=== PATIENT | male | born 1955 | race Caucasian/White ===

== ENCOUNTER 2019-06-04 23:46 | Inpatient (IN) | payer MEDICARE, MEDICAID ==
[~2019-06-04] VITALS: Ht 182.9 cm; Wt 142.4 kg
[~2019-06-04 23:46] MED LIST: DIGO125T PO; METO25TA6 PO
--- NOTE | 2019-06-04 23:52 | NUR ---
TO BED 4 BIB PARAMEDICS C/O SYNCOPAL EPISODE MULTIPLE TIMES TODAY, NO C/O L SIDED BODY PAIN. PT HYPOTENSIVE PER EMS REPORT. PT ALSO C/O GENERALIZED WEAKNESS. PT AAOX4 NO ACUTE DISTRESS NOTED, RESP EVEN AND UNLABORED. PLACE PT ON CARDIAC MONITORING, CONTINUOUS POX. PENDING ER MD CRUZ.
--- NOTE | 2019-06-05 00:08 | NUR ---
ER MD AT BEDSIDE TO EVAL PT WITH ORDERS RECEIVED. WILL CARRY OUT ORDERS.
[2019-06-05] MEDS ORDERED: IV NS 0.9% 1,000 ML BAG IV ONE ×2 (00:30→01:00)
[2019-06-05 00:33] LABS: BASOPHILS # (AUTO) 0.1 /CMM (0.0-0.2); BASOPHILS % (AUTO) 0.3 % (0.0-2.0); EOSINOPHILS % (AUTO) 0.3 % (0.0-6.0); HEMATOCRIT 32 % (39-51); HEMOGLOBIN 10.6 g/dL (13.5-17.5); LYMPHOCYTES # (AUTO) 1.1 /CMM (0.8-4.8); LYMPHOCYTES % (AUTO) 7.3 % (20.0-44.0); MEAN CORPUSCULAR HGB CONC 33 g/dl (31.0-36.0); MEAN CORPUSCULAR VOLUME 93 fL (80-96); MONOCYTES # (AUTO) 1.4 /CMM (0.1-1.30); MONOCYTES % (AUTO) 9.4 % (2.0-12.0); NEUTROPHILS # (AUTO) 12.2 /CMM (1.8-8.9); NEUTROPHILS % (AUTO) 82.7 % (43.0-81.0); PLATELET COUNT (AUTO) 424 /CMM (150-450); RED BLOOD CELL COUNT(AUTO) 3.47 MIL/uL (4.5-6.0); WHITE BLOOD COUNT (AUTO) 14.8 K/uL (4.3-11.0)
[2019-06-05 00:42] LABS: CALCIUM, SERUM 9.2 mg/dL (8.5-10.1); CARBON DIOXIDE 24 mmol/L (21-32); CHLORIDE 93 mmol/L (98-107); GLUCOSE 126 mg/dL (74-106); SODIUM SERUM 128 mmol/L (136-145); UREA NITROGEN, BLOOD 52 mg/dL (7-18)
[2019-06-05] MEDS ORDERED: ONDANSETRON HCL/PF 4 MG/2 ML VIAL ONE (00:47)
[2019-06-05 00:49] LABS: ALANINE AMINOTRANSFERASE 65 U/L (12-78); ALBUMIN 2.9 g/dL (3.4-5.0); ALKALINE PHOSPHATASE 81 U/L (46-116); ASPARTATE AMINOTRANSFERASE 34 U/L (15-37); BILIRUBIN,DIRECT 0.1 mg/dL (0.0-0.2); BILIRUBIN,TOTAL 0.4 mg/dL (0.2-1.0); TOTAL PROTEIN, SERUM 7.8 g/dL (6.4-8.2)
[2019-06-05] MEDS ORDERED: INSULIN REGULAR, HUMAN 100 UNIT/ML 10 ML VIAL IV ONE (01:00)
[2019-06-05] MEDS ORDERED: ONDANSETRON HCL/PF - ER 4 MG/2 ML VIAL IV ONE (01:00)
[2019-06-05] MEDS ORDERED: DEXTROSE 50%-WATER 50 ML DISP.SYRIN IV ONE (01:00)
[2019-06-05] MEDS ORDERED: SODIUM POLYSTYRENE SULFONATE 15 G/60 ML BOTTLE PO ONE (01:00)
[2019-06-05] MEDS ORDERED: ALBUTEROL FS 2.5 MG/3 ML VIAL.NEB NEB ONE (01:00)
--- NOTE | 2019-06-05 01:01 | NUR ---
LACTIC ACID 2.0, DR OSEGUERA AWARE
[2019-06-05] MEDS ORDERED: INSULIN REGULAR, HUMAN 100 UNIT/ML 10 ML VIAL ONE (01:12)
[2019-06-05] MEDS ORDERED: DEXTROSE 50%-WATER 50 ML DISP.SYRIN ONE (01:12)
[2019-06-05] MEDS ORDERED: SODIUM POLYSTYRENE SULFONATE 15 G/60 ML BOTTLE ONE (01:12)
[2019-06-05] MEDS ORDERED: ALBUTEROL FS 2.5 MG/3 ML VIAL.NEB ONE (01:22)
[2019-06-05] MEDS ORDERED: ACETAMINOPHEN 325 MG TABLET PO PRN (01:30)
[2019-06-05] MEDS ORDERED: TEMAZEPAM 15 MG CAPSULE PO PRN (01:30)
[2019-06-05] MEDS ORDERED: MAG HYDROX/AL HYDROX/SIMETH 30 ML UDC PO PRN (01:30)
[2019-06-05] MEDS ORDERED: MAGNESIUM HYDROXIDE 30 ML UDC PO PRN (01:30)
[2019-06-05] MEDS ORDERED: LIDOCAINE 2% JEL UROJET 10 ML MM ONE ×2 (01:32→02:00)
--- NOTE | 2019-06-05 01:47 | NUR ---
urine sample collected and sent to lab.
[2019-06-05] MEDS ORDERED: FENTANYL PF 100MCG/2ML AMPUL ONE (01:50)
[2019-06-05] MEDS ORDERED: FENTANYL PF 100MCG/2ML AMPUL IV ONE (02:00)
--- NOTE | 2019-06-05 02:00 | NUR ---
RECEIVED REPORT FROM EDGARD RN FROM ER FOR RAJINDER.
--- NOTE | 2019-06-05 02:02 | NUR ---
report called to july vikash lopez. will transport pt via acls protocol.
[2019-06-05 02:15] LABS: APPEARANCE,URINE SL CLOUDY (CLEAR); BILIRUBIN,URINE NEGATIVE (NEGATIVE); BLOOD, URINE 1+ Ery/uL (NEGATIVE); COLOR,URINE YELLOW (YELLOW); KETONES,URINE NEGATIVE (NEGATIVE); LEUKOCYTE ESTERASE ,URINE TRACE (NEGATIVE); NITRITE, URINE NEGATIVE (NEGATIVE); PH,URINE 5.5 (5.0-8.0); PROTEIN,URINE TRACE mg/dl (NEGATIVE); UGLUCOSE NEGATIVE (NEGATIVE); UROBILINOGEN,URINE 0.2 EU/dL (0.2)
[2019-06-05 02:24] LABS: BACTERIA,URINE Moderate /HPF (None Seen); WBC,URINE 21-50 /HPF (0-3)
[2019-06-05 03:00] VITALS: BP 112/53
--- NOTE | 2019-06-05 03:00 | NUR ---
ETHNOARCHAEOLOGIST ADMITTING NOTES RECEIVED PATIENT FROM ER VIA MELCHORPRASANTH, SAMEER HYPERKALEMIA SECONDARY TO ACUTE KIDNEY INJURY, UNDER ALEXANDER ROBERTS NP. PATIENT A/OX4. ON ROOM AIR, TOLERATING WELL. NO SOB OR RESPIRATORY DISTRESS NOTED. DENIES ANY PAIN AT THE MOMENT. ON TELE MONITOR AFIB WITH HR 104. IV SITE LEFT AC 20G FLUSHING AND PATENT S/L, SITE C/D/I. SEE NURSING FLOWSHEET FOR SKIN ISSUES, BEDREST FOR NOW, UNIT ORIENTATION DONE AND USE OF CALL LIGHT. SAFETY MEASURES IN PLACE; BED LOW AND IN LOCKED POSITION, SIDE RAILS UP X2, CALL LIGHT WITHIN REACH. WILL CONT TO MONITOR PT CLOSELY. Addendum: 06/05/19 at 0343 by LUBNA LIAO RN CLARIFICATION: [facility] RN ADMITTING NOTES CHEW CATHETER IN PLACE WITH LIDIA URINE NOTED. ILEOSTOMY BAG NOTED WITH SOFT BROWN STOOL.
[2019-06-05 03:21] LABS: CALCIUM, SERUM 8.7 mg/dL (8.5-10.1); CREATININE 5.8 mg/dL (0.6-1.3); POTASSIUM 4.4 mmol/L (3.5-5.1)
--- NOTE | 2019-06-05 03:37 | NUR ---
[facility] RN NOTES PATIENT LACTIC ACID NOW 3.7. HOSPITALIST MADE AWARE. NO NEW ORDERS NOTED. WILL CONT TO MONITOR PT.
--- NOTE | 2019-06-05 03:40 | NUR ---
[facility] RN NOTES PATIENT REQUESTING SLEEPING MEDICATION. HOSPITALIST MADE AWARE. ORDERED RESTORIL 7.5MG QHS PRN PO. WILL ADMINISTER PRN MEDICATION.
[2019-06-05] MEDS: HYDROCODONE/APAP 5/325MG 1 EACH TABLET PO PRN (05:12)
--- NOTE | 2019-06-05 05:14 | NUR ---
[facility] RN NOTES PATIENT C/O ABDOMINAL ACHING PAIN 10/10 AND IS REQUESTING FOR MORPHINE. WILL ADMINISTER PRN PAIN MEDICATION.
[2019-06-05] MEDS: MORPHINE SULFATE INJ 2 MG/ML DISP.SYRIN IV PRN ×4 (05:21→21:33)
--- NOTE | 2019-06-05 07:30 | NUR ---
[facility] RN CLOSING NOTES PATIENT RESTING IN BED, A/OX4. ON OXYGEN 2L VIA NC, TOLERATING WELL. NO SOB OR RESPIRATORY DISTRESS NOTED. DENIES ANY PAIN AT THE MOMENT. ON TELE MONITOR AFIB WITH HR 90S. IV SITE LEFT AC 20G FLUSHING AND PATENT S/L, SITE C/D/I. CHEW CATHETER OFF THE FLOOR WITH LIDIA URINE NOTED. ILEOSTOMY BAG INTACT. ALL ADMITTING ORDERS DONE. SAFETY MEASURES MAINTAINED; BED LOW AND IN LOCKED POSITION, SIDE RAILS UP X2, CALL LIGHT WITHIN REACH. ENDORSED TO AM RN FOR RAJINDER.
[2019-06-05 08:00] VITALS: BP 90/54
--- NOTE | 2019-06-05 08:00 | NUR ---
july rn notes received pt in bed, awake a/ox4. on tele afib 90's. on 2l nc o2 sat wnl. no s/sx of sob/labored breathing. santoyo cath in place draining cloudy yellow urine. ileostomy 1/2 full. pt afebrile. LAC #20 intact/patent.call light within reach. pt updated with plan of care. bed in locked/lowest position. will cont to monitor.
[2019-06-05] MEDS ORDERED: PREG50CA PO (08:53)
[2019-06-05] MEDS ORDERED: ALBU18HF2 IH (08:53)
[2019-06-05] MEDS ORDERED: IBUP-1953 PO (08:53)
[2019-06-05] MEDS ORDERED: TRAM50TA2 PO (08:53)
[2019-06-05] MEDS ORDERED: ZOLP5TAB2 PO (08:53)
[2019-06-05] MEDS ORDERED: FURO20TA4 PO (08:53)
[2019-06-05] MEDS ORDERED: APIX5TAB4 PO (08:53)
[2019-06-05] MEDS: PANTOPRAZOLE 40 MG TABLET.DR PO SCH (09:37)
[2019-06-05] MEDS: ONDANSETRON HCL/PF 4 MG/2 ML VIAL IVP PRN (09:47)
--- NOTE | 2019-06-05 09:47 | NUR ---
july rn notes pt insisting on morphine for pain level 5/10.
[2019-06-05] MEDS ORDERED: ALBUTEROL FS 2.5 MG/3 ML VIAL.NEB NEB PRN (10:30)
[2019-06-05] MEDS ORDERED: IV NS 0.9% 1,000 ML IV PRN (10:30)
[2019-06-05 11:59] LABS: CREATININE, URINE 184.2 MG/DL (30.0-125.0); URINE SODIUM, RANDOM < 5 mmol/l (40-220); URINE TOTAL PROTEIN 93.7 mg/dL (0-11.9)
[2019-06-05 12:00] VITALS: BP 96/51
[2019-06-05] MEDS: AZITHROMYCIN 500 MG in IV D5W 250 ML IV SCH (12:22)
[2019-06-05] MEDS: IV NS 0.9% 1,000 ML IV PRN ×2 (12:22→23:48)
[2019-06-05] MEDS: APIXABAN 2.5 MG TABLET PO SCH ×2 (12:33→21:30)
[2019-06-05 14:15] LABS: MAGNESIUM 1.6 mg/dL (1.8-2.4); PHOSPHORUS 5.9 mg/dL (2.5-4.9)
[2019-06-05] MEDS: CEFTRIAXONE 1 G in IV D5W 50 ML IV SCH (14:17)
[2019-06-05 16:00] VITALS: BP 133/81
[2019-06-05] MEDS: Magnesium 1GM/D5W 100ML PREMIX 100 ML IV SCH ×2 (16:07→17:18)
[2019-06-05] MEDS: METOPROLOL TARTRATE 25 MG TABLET PO SCH (16:08)
[2019-06-05] MEDS: PREGABALIN 25 MG CAPSULE PO SCH (17:18)
--- NOTE | 2019-06-05 19:11 | NUR ---
july rn notes pt in bed, asleep intermittently. not c/o pain at this time. f/c in place draining 700cc urine. pt requesting for santoyo to remain as he states, "it's getting the urine out." 2G magnesium replaced as per md order. c d stripper ashley aware of phos at 5.9. on tele afib controlled. updated pt with poc. bed in locked/lowest position. call light in reach. will endorse to pm nurse for joselito.
[2019-06-05 20:22] VITALS: BP 101/52
--- NOTE | 2019-06-05 20:48 | NUR ---
[facility] RN INITIAL NOTES PATIENT RESTING IN BED, A/OX4. ON OXYGEN 2L VIA NC, TOLERATING WELL. NO SOB OR RESPIRATORY DISTRESS NOTED. DENIES ANY PAIN AT THE MOMENT. ON TELE MONITOR AFIB WITH HR 70S. IV SITE LEFT AC 20G FLUSHING AND PATENT S/L, SITE C/D/I. CHEW CATHETER OFF THE FLOOR WITH LIDIA URINE NOTED. ILEOSTOMY BAG INTACT. ALL ADMITTING ORDERS DONE. SAFETY MEASURES MAINTAINED; BED LOW AND IN LOCKED POSITION, SIDE RAILS UP X2, CALL LIGHT WITHIN REACH. ENDORSED TO AM RN FOR RAJINDER.
[2019-06-05] MEDS ORDERED: APIXABAN 5 MG TABLET PO SCH (21:00)
[2019-06-05] MEDS: TEMAZEPAM 15 MG CAPSULE PO PRN (22:18)
[2019-06-06 00:36] VITALS: BP 102/52
[2019-06-06 04:00] VITALS: BP 110/64
[2019-06-06] MEDS: HYDROCODONE/APAP 5/325MG 1 EACH TABLET PO PRN (04:36)
--- NOTE | 2019-06-06 07:10 | NUR ---
RN INITIAL NOTES RECEIVED REPORT AT BEDSIDE. PATIENT IN BED, AWAKE, A&Ox4. ON ROOM AIR, NO DIFFICULTY BREATHING. NO COMPLAINS OF ANY PAIN AT THIS TIME. ON TELE MONITOR, CONTROLLED AFIB AT 80s. HAS AN ILEOSTOMY BAG, WILL CHECK CENTRAL SUPPLY IF WE HAVE THE SAME ONE WITH WHAT THE PATIENT HAS. HAS CHEW CATH, WITH CLEAR AND YELLOW URINE. HAS A LEFT AC #20 WITH NS AT 125ML/HR. PER NOC SHIFT, PATIENT ASKED FOR PAIN MEDS LAST NIGHT, NORCO AND MORPHINE WAS GIVEN. PATIENT HAS AN ORDER OF PAIN MANAGEMENT PER MD. BED LOCKED AND IN LOWEST POSITION, CALL LIGHT WITHIN REACH, WILL CONTINUE TO MONITOR PATIENT THROUGHOUT THE SHIFT
[2019-06-06 08:00] VITALS: BP 121/71
[2019-06-06] MEDS: PREGABALIN 25 MG CAPSULE PO SCH (08:09)
[2019-06-06] MEDS: PANTOPRAZOLE 40 MG TABLET.DR PO SCH (08:09)
[2019-06-06] MEDS: APIXABAN 2.5 MG TABLET PO SCH ×2 (08:10→16:53)
[2019-06-06] MEDS: METOPROLOL TARTRATE 25 MG TABLET PO SCH ×2 (08:19→16:24)
--- NOTE | 2019-06-06 08:53 | NUR ---
WOUND CARE CONSULT: PT PRESENTS INDEPENDENT WITH BED MOBILITY. PT NOTED WITH COLOSTOMY, GLUTEAL CREASE RASH, PRESENT ON ADMISSION. RECOMMENDATIONS MADE FOR SKIN PROTECTION AND CARE. DISCUSSED WITH NURSING STAFF. WILL SEE PRN. ALEMAN IN AGREEMENT WITH PLAN OF CARE. PT STATES IS COMFORTABLE ON CURRENT MATTRESS/BED. Addendum: 06/06/19 at 0857 by JASON MILLER WNDNU Amended: Links added.
[2019-06-06] MEDS ORDERED: Z GUARD REMEDY 2 OZ OINT TP PRN (09:00)
[2019-06-06 09:20] LABS: BASOPHILS % (AUTO) 0.4 % (0.0-2.0); EOSINOPHILS % (AUTO) 1.8 % (0.0-6.0); HEMATOCRIT 31 % (39-51); HEMOGLOBIN 10.1 g/dL (13.5-17.5); LYMPHOCYTES # (AUTO) 1.2 /CMM (0.8-4.8); LYMPHOCYTES % (AUTO) 14.1 % (20.0-44.0); MEAN CORPUSCULAR HGB CONC 33 g/dl (31.0-36.0); MEAN CORPUSCULAR VOLUME 93 fL (80-96); MONOCYTES # (AUTO) 0.8 /CMM (0.1-1.30); MONOCYTES % (AUTO) 10.1 % (2.0-12.0); NEUTROPHILS # (AUTO) 6.1 /CMM (1.8-8.9); NEUTROPHILS % (AUTO) 73.6 % (43.0-81.0); PLATELET COUNT (AUTO) 359 /CMM (150-450); RED BLOOD CELL COUNT(AUTO) 3.32 MIL/uL (4.5-6.0); WHITE BLOOD COUNT (AUTO) 8.2 K/uL (4.3-11.0)
[2019-06-06 09:26] LABS: CALCIUM, SERUM 8.9 mg/dL (8.5-10.1); CREATININE 2.8 mg/dL (0.6-1.3); MAGNESIUM 2.1 mg/dL (1.8-2.4); PHOSPHORUS 4.5 mg/dL (2.5-4.9); POTASSIUM 4.3 mmol/L (3.5-5.1)
--- NOTE | 2019-06-06 10:00 | NUR ---
RN NOTES WOUND CARE NURSE AT BEDSIDE, ORDERED LOTRIMIN CREAM FOR PATIENT'S INNER BUTTOCK REDNESS. PATIENT'S ILEOSTOMY BAG IS A UNIQUE KIND. PER PT, HE DID NOT BRING EXTRAS WITH HIM. THE ONE WE HAVE HERE IN [place] IS DIFFERENT AND PT DOES NOT WANT TO USE IT. DR UGALDE AT BEDSIDE, ORDERED TO CUT ELIQUIS DOSE FOR RENAL FUNCTION, FROM 5MG TO 2.5MG. PATIENT IS AWARE. PER PATIENT, REFUSING HD FOR NOW
[2019-06-06] MEDS: CLOTRIMAZOLE 1% 15 GM TUBE TP SCH ×2 (10:14→16:53)
[2019-06-06] MEDS: Z GUARD REMEDY 2 OZ OINT TP SCH (10:15)
[2019-06-06] MEDS: AZITHROMYCIN 500 MG in IV D5W 250 ML IV SCH (11:09)
--- NOTE | 2019-06-06 12:20 | NUR ---
donor services technician consult requested by Gilbert Driscoll DNP because pt lives alone at home and has no assistance but evaluation was referred to case management for home health placement. MAYRA consulted with Internal Investigator Marci and confirmed that case management is working with pt for discharge planning with home health.
[2019-06-06] MEDS: MORPHINE SULFATE INJ 2 MG/ML DISP.SYRIN IV PRN ×2 (12:22→20:06)
[2019-06-06] MEDS: CEFTRIAXONE 1 G in IV D5W 50 ML IV SCH (12:23)
[2019-06-06 14:42] LABS: BILIRUBIN,URINE NEGATIVE (NEGATIVE); BLOOD, URINE 2+ Ery/uL (NEGATIVE); KETONES,URINE NEGATIVE (NEGATIVE); LEUKOCYTE ESTERASE ,URINE TRACE (NEGATIVE); NITRITE, URINE NEGATIVE (NEGATIVE); PROTEIN,URINE NEGATIVE (NEGATIVE); UGLUCOSE NEGATIVE (NEGATIVE); UROBILINOGEN,URINE 0.2 EU/dL (0.2)
[2019-06-06 14:58] LABS: COLOR,URINE STRAW (YELLOW)
[2019-06-06 15:03] LABS: APPEARANCE,URINE HAZY (CLEAR)
[2019-06-06 15:04] LABS: BACTERIA,URINE Few /HPF (None Seen); SQUAMOUS EPITHELIAL CELL,UR Moderate /HPF (None Seen)
[2019-06-06 15:06] LABS: CREATININE, URINE 55.4 MG/DL (30.0-125.0); URINE TOTAL PROTEIN 12.1 mg/dL (0-11.9)
[2019-06-06 15:13] LABS: URINE SODIUM, RANDOM < 5 mmol/l (40-220)
--- NOTE | 2019-06-06 15:14 | NUR ---
RN NOTE HALLIE WILSON AT BEDSIDE. PATIENT AWARE THAT STEVE WILL ASK BRAZER HELPER INDUCTION REGARDING PATIENT'S REQUEST TO CHANGE DIET ORDER. PATIENT KEEPS ASKING FOR A SNACK IN BETWEEN MEALS AND IS HUNGRY AT ALL TIMES. SW ORDERED BY MAYRA WILSON REFERRED TO FOR SNF PLACEMENT.
[2019-06-06 15:54] LABS: EOSINOPHIL,URINE None Seen
[2019-06-06 16:00] VITALS: BP 97/57
--- NOTE | 2019-06-06 19:01 | NUR ---
RN CLOSING NOTES PATIENT IN BED, AWAKE VERY ALERT. AWARE OF TREATMENT PLAN. ILEOSTOMY OUTPUT 800ML. FC CLEAR AND YELLOW. URINE SAMPLE COLLECTED WAS SENT TO LAB. LOW SODIUM AT 132. AWARE. WILL ENDORSE TO NOC SHIFT FOR RAJINDER
--- NOTE | 2019-06-06 19:58 | NUR ---
RN OPENING NOTES RECEIVED REPORT FROM BUCKY YBARRA. PATIENT A/A/O X3, ABLE TO VERBALIZE NEEDS. BREATHING EVEN & UNLABORED, TOLERATING ROOM AIR. DENIES ANY SOB OR DIFFICULTY BREATHING. RADIAL PULSES PRESENT. LEFT FOREARM IV #20 INTACT & PATENT W/ DRESSING CDI, SALINE LOCKED. CHEW CATH DRAINING YELLOW URINE & ILEOSTOMY BAG IN PLACE W/ LIQUID, BROWN OUTPUT. C/O GENERALIZED PAIN 8/10 ON ADULT PAIN SCALE, PAIN MED TO BE GIVEN. SAFETY MEASURES IN PLACE W/ SIDE RAILS UP & BED ALARM ON. CALL LIGHT PLACED WITHIN REACH & INSTRUCTED TO CALL FOR ASSISTANCE. WILL CONTINUE TO MONITOR.
[2019-06-06 20:00] VITALS: BP 101/54
[2019-06-06] MEDS: TEMAZEPAM 15 MG CAPSULE PO PRN (20:37)
[2019-06-06] MEDS: ONDANSETRON HCL/PF 4 MG/2 ML VIAL IVP PRN (20:39)
[2019-06-07] MEDS: MORPHINE SULFATE INJ 2 MG/ML DISP.SYRIN IV PRN ×4 (02:15→21:02)
[2019-06-07 04:00] VITALS: BP 121/66
[2019-06-07 06:33] LABS: BASOPHILS # (AUTO) 0.1 /CMM (0.0-0.2); BASOPHILS % (AUTO) 0.5 % (0.0-2.0); EOSINOPHILS % (AUTO) 2.6 % (0.0-6.0); HEMATOCRIT 28 % (39-51); HEMOGLOBIN 9.5 g/dL (13.5-17.5); LYMPHOCYTES # (AUTO) 1.1 /CMM (0.8-4.8); LYMPHOCYTES % (AUTO) 9.9 % (20.0-44.0); MEAN CORPUSCULAR HGB CONC 34 g/dl (31.0-36.0); MEAN CORPUSCULAR VOLUME 93 fL (80-96); MONOCYTES # (AUTO) 1.1 /CMM (0.1-1.30); MONOCYTES % (AUTO) 10.3 % (2.0-12.0); NEUTROPHILS # (AUTO) 8.3 /CMM (1.8-8.9); NEUTROPHILS % (AUTO) 76.7 % (43.0-81.0); PLATELET COUNT (AUTO) 346 /CMM (150-450); RED BLOOD CELL COUNT(AUTO) 3.02 MIL/uL (4.5-6.0); WHITE BLOOD COUNT (AUTO) 10.9 K/uL (4.3-11.0)
[2019-06-07 06:58] LABS: CALCIUM, SERUM 8.7 mg/dL (8.5-10.1); CREATININE 1.9 mg/dL (0.6-1.3); MAGNESIUM 1.7 mg/dL (1.8-2.4); PHOSPHORUS 3.3 mg/dL (2.5-4.9); POTASSIUM 4.7 mmol/L (3.5-5.1)
--- NOTE | 2019-06-07 07:10 | NUR ---
RN INITIAL NOTES PATIENT IN BED AWAKE AND ALERT, WATCHING TV. HAS A CHEW WITH CLEAR AND YELLOW URINE. HAS COLOSTOMY BAG WITH SOFT AND BROWN STOOL. HAS RFA #20 SL. NO COMPLAINS OF ANY PAIN NOR SOB, ON ROOM AIR. BED LOCKED AND IN LOWEST POSITION CALL LIGHT WR. WILL CONTINUE TO MONITOR CLOSELY
[2019-06-07 08:00] VITALS: BP 138/75
[2019-06-07] MEDS ORDERED: Magnesium 1GM/D5W 100ML PREMIX 100 ML IV ONE (08:00)
[2019-06-07] MEDS: PANTOPRAZOLE 40 MG TABLET.DR PO SCH (08:19)
[2019-06-07] MEDS: PREGABALIN 25 MG CAPSULE PO SCH (08:19)
[2019-06-07] MEDS: METOPROLOL TARTRATE 25 MG TABLET PO SCH ×2 (08:20→16:20)
[2019-06-07] MEDS: APIXABAN 2.5 MG TABLET PO SCH ×2 (08:22→16:20)
[2019-06-07] MEDS: Z GUARD REMEDY 2 OZ OINT TP SCH (08:22)
[2019-06-07] MEDS: CLOTRIMAZOLE 1% 15 GM TUBE TP SCH ×2 (08:24→16:22)
[2019-06-07] MEDS: AZITHROMYCIN 500 MG in IV D5W 250 ML IV SCH (11:00)
[2019-06-07] MEDS: CEFTRIAXONE 1 G in IV D5W 50 ML IV SCH (12:01)
[2019-06-07 16:00] VITALS: BP 120/54
--- NOTE | 2019-06-07 16:00 | NUR ---
RN NOTES DIET CHANGED TO 100G RENAL 2200 VICTORIA DIABETIC FROM RENAL STANDARD 60G.
--- NOTE | 2019-06-07 18:41 | NUR ---
RN CLOSING NOTES PATIENT IN BED, AWAKE AND ALERT. WAS GIVEN MORPHINE 2X TODAY DUE TO GENERALIZED PAIN, MOSTLY ON ABDOMEN (MUSCLE). ON ROOM AIR, AMBULATORY STEADY GAIT. FC 1300 ML. 800ML COLOSTOMY BAG. PT REFUSED TO CHANGE BAG BECAUSE WE DO NOT HAVE THE ONE SIMILAR TO HIS. HAS RIGHT FA#20 SALINE LOCKED. MG REPLACED. BED LOCKED AND IN LOWEST POSITION. CALL LIGHT WITHIN REACH. WILL ENDORSE TO NOC SHIFT FOR RAJINDER
[2019-06-07 20:00] VITALS: BP 122/60
--- NOTE | 2019-06-07 20:00 | NUR ---
RN NOTES RECEIVED PAT AWAKE ON BED A/OX3, F/C DRAINING CLEAR YELLOW URINE, WITH ILEOSTOMY, DENIES PAIN AT THIS TIME NO, SOB, CALL LIGHT WITHIN REACH, SIDERALSUPX2, CONTINUE TO MONITOR
--- NOTE | 2019-06-07 21:06 | NUR ---
RN NOTES COMPLAINED OF GENERALIZED PAIN- MORPHINE 4MG IV GIVEN ORDERED, V/S STABLE
[2019-06-07] MEDS: TEMAZEPAM 15 MG CAPSULE PO PRN (21:26)
--- NOTE | 2019-06-08 01:00 | NUR ---
RN NOTES PT. ORDERED PIZZA OUTSIDE, EVEN WERE TELLING HIM THAT HI CALORIC COUNT, PT. IS NON-COMPLIANT
[2019-06-08] MEDS: MORPHINE SULFATE INJ 2 MG/ML DISP.SYRIN IV PRN ×4 (03:08→20:57)
--- NOTE | 2019-06-08 03:12 | NUR ---
RN NOTES COMPLAINED OF GENERALIZED PAIN- MORPHINE 4 MG IV GIVEN ORDERED, V/S STABLE
[2019-06-08 04:00] VITALS: BP 111/68
--- NOTE | 2019-06-08 06:18 | NUR ---
RN NOTES SLEEPING BUT AROUSABLE, NO PAIN NOTED, NO SOB, REFUSED MORNING CARE, CALL LIGHT WITHIN REACH, PRINCEAILSUPX2, PT. NEEDS ATTENDED
[2019-06-08 06:31] LABS: ALBUMIN 2.5 g/dL (3.4-5.0); BILIRUBIN,TOTAL 0.3 mg/dL (0.2-1.0); CREATININE 1.6 mg/dL (0.6-1.3); MAGNESIUM 1.8 mg/dL (1.8-2.4); PHOSPHORUS 2.9 mg/dL (2.5-4.9); POTASSIUM 4.2 mmol/L (3.5-5.1); TOTAL PROTEIN, SERUM 7.4 g/dL (6.4-8.2)
[2019-06-08 06:32] LABS: BASOPHILS # (AUTO) 0.1 /CMM (0.0-0.2); BASOPHILS % (AUTO) 0.6 % (0.0-2.0); EOSINOPHILS % (AUTO) 2.9 % (0.0-6.0); HEMATOCRIT 30 % (39-51); HEMOGLOBIN 9.7 g/dL (13.5-17.5); LYMPHOCYTES # (AUTO) 1.1 /CMM (0.8-4.8); LYMPHOCYTES % (AUTO) 9.2 % (20.0-44.0); MEAN CORPUSCULAR HGB CONC 33 g/dl (31.0-36.0); MEAN CORPUSCULAR VOLUME 94 fL (80-96); MONOCYTES % (AUTO) 8.7 % (2.0-12.0); NEUTROPHILS # (AUTO) 9.4 /CMM (1.8-8.9); NEUTROPHILS % (AUTO) 78.6 % (43.0-81.0); PLATELET COUNT (AUTO) 349 /CMM (150-450); WHITE BLOOD COUNT (AUTO) 11.9 K/uL (4.3-11.0)
[2019-06-08 08:00] VITALS: BP 166/74
[2019-06-08] MEDS: PREGABALIN 25 MG CAPSULE PO SCH (09:37)
[2019-06-08] MEDS: APIXABAN 2.5 MG TABLET PO SCH ×2 (09:37→16:53)
[2019-06-08] MEDS: PANTOPRAZOLE 40 MG TABLET.DR PO SCH (09:38)
[2019-06-08] MEDS: METOPROLOL TARTRATE 25 MG TABLET PO SCH ×2 (09:38→16:52)
[2019-06-08] MEDS: AZITHROMYCIN 500 MG in IV D5W 250 ML IV SCH (09:57)
[2019-06-08] MEDS: CLOTRIMAZOLE 1% 15 GM TUBE TP SCH ×2 (09:58→16:54)
[2019-06-08] MEDS: Z GUARD REMEDY 2 OZ OINT TP SCH (09:59)
[2019-06-08] MEDS: CEFTRIAXONE 1 G in IV D5W 50 ML IV SCH (12:34)
[2019-06-08 16:00] VITALS: BP 106/70
--- NOTE | 2019-06-08 19:50 | NUR ---
RN INITIAL NOTES: RECEIVED RPEORT FROM DAY RN. PT IN BED, AWARE, A/O X4, ON RA RESPIRATIONS EVEN AND UNLABORED. IV ACCESS PATENT AND FLUSHING WELL, ON HL. PT HAS ILEOSTOMY IN PLACED. CHEW CATHETER DRAINING INTO YELLOW COLORED URINE. DISCUSSED PLAN OF CARE FOR TONIGHT. SAFETY PRECAUTIONS FOR FALL INITIATED, CALL LIGHT IN REACH, WILL CONTINUE MONITORING PT.
[2019-06-08 20:00] VITALS: BP 146/62
--- NOTE | 2019-06-08 20:18 | NUR ---
RN NOTES: PT INSISTED TO HAVE HIS CHEW CATHETER REMOVE, STATED HE WAS TOLD IT WILL BE REMOVE AT 0200PM THIS AFTERNOON AND HE'S GOING HOME TOMORROW SO HE WOULD LIKE TO URINATE IN A NATURAL WAY, CLAIMED HE HAS CHEW FOR 4DAYS. NEON TECHNICIAN MADE AWARE. REMOVED CHEW CATHETER AT THIS TIME, PER PT REQUEST. EMPTIED 400ML OF YELLOW COLORED URINE.
--- NOTE | 2019-06-08 20:58 | NUR ---
PRN MORPHINE: PT C/O 07/15 ABDOMINAL PAIN, REQUESTING FOR HIS MORPHINE. PRN MORPHINE 4MG IVP ADMINISTERED TO PT AT THIS TIME. WILL CONTINUE TO MONITOR AND REASSESS PT.
--- NOTE | 2019-06-08 21:05 | NUR ---
RN NOTES: PT REFUSED TAKING PHOTOS OF SKIN ISSUES, CLAIMED IT WAS DONE UPON ADMISSION, INFORMED AND EXPLAINED TO PT ABOUT POLICY FOR TAKING PICTURES FOR DOCUMENTATION AND SEEING PROGRESS, BUT PT REFUSED. HE ALSO REFUSED FOR BED BATH AND LINEN CHANGE. EDUCATION PROVIDED TO PT.
--- NOTE | 2019-06-08 21:24 | NUR ---
RN NOTES: EMPTIED ILEOSTOMY BAG, LIQUID BROWN 300ML
[2019-06-08] MEDS: TEMAZEPAM 15 MG CAPSULE PO PRN (21:26)
--- NOTE | 2019-06-08 21:26 | NUR ---
PRN RESTORIL: PT REQUESTING FOR SLEEPING PILL. PRN RESTORIL ADMINISTERED AT THIS TIME. WILL CONTINUE TO MONITOR AND REASSESS
--- NOTE | 2019-06-09 | NUR ---
RN NOTES: EMPTIED ILEOSTOMY BAG, 150ML
[2019-06-09] MEDS: MORPHINE SULFATE INJ 2 MG/ML DISP.SYRIN IV PRN ×4 (01:08→13:16)
--- NOTE | 2019-06-09 01:09 | NUR ---
PRN MORPHINE: PT C/O 06/14 ABDOMINAL PAIN REQUESTING FOR MORPHINE, PRN MORPHINE 4MG IVP ADMINISTERED TO PT AT THIS TIME. WILL CONTINUE TO MONITOR AND REASSESS
[2019-06-09 04:00] VITALS: BP 100/49
--- NOTE | 2019-06-09 04:00 | NUR ---
RN NOTES: OFFERED BED BATH BUT PT REFUSED AGAIN, EDUCATION PROVIDED TO PT REGARDING IMPORTANCE OF GOOD PROPER HYGIENE, HAND WASHING AND CLEANLINESS.
--- NOTE | 2019-06-09 05:00 | NUR ---
PRN MORPHINE: PT C/O 06/14 ABDOMINAL PAIN REQUESTING FOR MORPHINE. PRN MORPHINE 4MG IVP ADMINISTERED TO PT AT THIS TIME. WILL CONTINUE TO MONITOR AND REASSESS
--- NOTE | 2019-06-09 05:51 | NUR ---
RN NOTES: ASSISTED PT IN CHANGING COLOSTOMY BAG. PT REFUSED CHAGING LINEN, AND REFUSED FOR BED BATH, THIS IS THE 4TH TIME AM CARE BEING OFFERED TO PT. NOTIFIED MANAGER NURSING HOME.
[2019-06-09 06:17] LABS: BASOPHILS # (AUTO) 0.1 /CMM (0.0-0.2); BASOPHILS % (AUTO) 0.6 % (0.0-2.0); EOSINOPHILS % (AUTO) 3.4 % (0.0-6.0); HEMATOCRIT 30 % (39-51); HEMOGLOBIN 9.8 g/dL (13.5-17.5); LYMPHOCYTES # (AUTO) 1.4 /CMM (0.8-4.8); LYMPHOCYTES % (AUTO) 12.8 % (20.0-44.0); MEAN CORPUSCULAR HGB CONC 33 g/dl (31.0-36.0); MEAN CORPUSCULAR VOLUME 94 fL (80-96); MONOCYTES # (AUTO) 0.8 /CMM (0.1-1.30); MONOCYTES % (AUTO) 7.2 % (2.0-12.0); NEUTROPHILS # (AUTO) 8.1 /CMM (1.8-8.9); PLATELET COUNT (AUTO) 352 /CMM (150-450); RED BLOOD CELL COUNT(AUTO) 3.15 MIL/uL (4.5-6.0); WHITE BLOOD COUNT (AUTO) 10.6 K/uL (4.3-11.0)
[2019-06-09 06:24] LABS: CALCIUM, SERUM 9.2 mg/dL (8.5-10.1); CREATININE 1.4 mg/dL (0.6-1.3); MAGNESIUM 1.6 mg/dL (1.8-2.4); POTASSIUM 4.3 mmol/L (3.5-5.1)
--- NOTE | 2019-06-09 06:55 | NUR ---
RN CLOSING NOTES: PT AWAKE, ON RA, IV ACCESS REMAINS PATENT AND FLUSHING WELL, ON HL. LAST PAIN MEDS ADMINISTERED AT 0500AM. REFUSED FOR COMPLETE LINEN CHANGE, REFUSED FOR BED BATH, REFUSED PHOTOS OF SKIN ISSUES. POSSIBLE DC TODAY. VS REMAINS STABLE, NEEDS ATTENDED. SAFETY PRECAUTIONS FOR FALL REMAINS ENGAGED, CALL LIGHT IN REACH, WILL ENDORSE TO DAY RN FOR CONTINUITY OF CARE.
--- NOTE | 2019-06-09 07:30 | NUR ---
m/s vegetable picker: initial assessment received pt in bed awake, a/ox4. pt requesting for morphine for pain. informed him that it was given at 0500 and it's every 4 hours prn. offered norco, but pt refuses. will continue to monitor.
--- NOTE | 2019-06-09 07:53 | NUR ---
m/s vice squad police officer: md visit seen by dr. hong with orders. orders acknowledged. md aware of labs. pt having breakfast. call light within reach. will continue to monitor.
[2019-06-09 08:00] VITALS: BP 179/83
--- NOTE | 2019-06-09 08:30 | NUR ---
m/s mechanical manufacturing technician: notes pt asking if he can his morphine early, but informed that it's not due yet. offered norco and pt still refuses. instructed to call for assistance.
[2019-06-09] MEDS: PREGABALIN 25 MG CAPSULE PO SCH (08:31)
[2019-06-09] MEDS: METOPROLOL TARTRATE 25 MG TABLET PO SCH (08:31)
[2019-06-09] MEDS: PANTOPRAZOLE 40 MG TABLET.DR PO SCH (08:31)
[2019-06-09] MEDS: Z GUARD REMEDY 2 OZ OINT TP SCH (08:35)
[2019-06-09] MEDS: CLOTRIMAZOLE 1% 15 GM TUBE TP SCH (08:35)
[2019-06-09] MEDS: APIXABAN 2.5 MG TABLET PO SCH (08:51)
[2019-06-09] MEDS ORDERED: MAGNESIUM OXIDE 400 MG TABLET PO SCH (09:00)
--- NOTE | 2019-06-09 09:00 | NUR ---
m/s bookkeeping teacher: notes c/o 06/14 abdominal pain, medicated with morphine 4mg ivp by rn. instructed to call for assistance. will continue to monitor.
--- NOTE | 2019-06-09 09:25 | NUR ---
m/s quality control representative: notes pt refused skin assessment. also pt refused am care when offered. pt for d'c planning today and pt is aware. instructed to call for assistance. will continue to monitor.
[2019-06-09] MEDS ORDERED: Magnesium 1GM/D5W 100ML PREMIX 100 ML IV SCH (10:17)
[2019-06-09] MEDS: AZITHROMYCIN 500 MG in IV D5W 250 ML IV SCH (10:35)
[2019-06-09] MEDS ORDERED: AZITHROMYCIN 250 MG TABLET PO SCH (11:00)
[2019-06-09 12:00] VITALS: BP 159/79
--- NOTE | 2019-06-09 12:00 | NUR ---
m/s blacksmith supervisor: notes lunch served. instructed to call for assistance. will continue to monitor.
[2019-06-09] MEDS: CEFTRIAXONE 1 G in IV D5W 50 ML IV SCH (12:19)
--- NOTE | 2019-06-09 13:16 | NUR ---
m/s duct maker: notes c/o 08/14 abdominal pain, medicated with morphine 4mg ivp by rn. instructed to call for assistance. will continue to monitor.
--- NOTE | 2019-06-09 13:46 | NUR ---
m/s analytical research program manager: notes pt verbalized relief of pain. no c/o n/v. instructed to call for assistance. will continue to monitor.
--- NOTE | 2019-06-09 15:00 | NUR ---
m/s school boat driver: notes pt resting comfortable. still for d'c home, awaiting for md order. instructed to call for assistance. will continue to monitor.
--- NOTE | 2019-06-09 17:00 | NUR ---
m/s produce manager: notes seen by angela ramirez (acnp) with order to d'c home with home health. nnamdi (case management) made arrangement for home health.
--- NOTE | 2019-06-09 17:15 | NUR ---
m/s coordinator of placement: notes discharge instructions given to pt and verbalized understanding. h/l remove with tip intact. called taxi and provided a voucher for pt. all belongings returned to pt. pt getting ready at this time.
--- NOTE | 2019-06-09 17:30 | NUR ---
m/s quality control auditor: notes pt refused skin assessment and photos prior to discharge. discharge home in stable condition via taxi with voucher with all belongings and given pt a walker.
[2019-06-10] MEDS ORDERED: AZITHROMYCIN 250 MG TABLET PO SCH (11:00)
== END 2019-06-09 17:25 | disposition home health service (06) | DRG 871 ==
LOC: ER 23:52 → TELE-TD 06-05 02:44 → MEDSG1 06-06 09:42
PROVIDERS: ADMIT Hospitalist; ATTEND Hospitalist
DX: A41.9 Sepsis, unspecified organism (principal); N17.0 Acute kidney failure with tubular necrosis; J18.9 Pneumonia, unspecified organism; G93.41 Metabolic encephalopathy; N39.0 Urinary tract infection, site not specified; E87.1 Hypo-osmolality and hyponatremia; Z68.41 Body mass index [BMI] 40.0-44.9, adult; E87.5 Hyperkalemia; E86.0 Dehydration; R65.20 Severe sepsis without septic shock; E83.39 Other disorders of phosphorus metabolism; I48.91 Unspecified atrial fibrillation; I12.9 Hypertensive chronic kidney disease with stage 1 through stage 4 chronic kidney disease, or unspecified chronic kidney disease; N18.9 Chronic kidney disease, unspecified; E66.01 Morbid (severe) obesity due to excess calories; R73.9 Hyperglycemia, unspecified; G47.33 Obstructive sleep apnea (adult) (pediatric); E86.1 Hypovolemia; Z93.3 Colostomy status
CPT/HCPCS: 36415; 71045-TC; 80048-TC; 80053-TC; 80061-TC; 80076-TC; 80305; 81000-TC; 82570-TC; 82962-TC; 83605-TC; 83735-TC; 84100-TC; 84155-TC; 84300-TC; 84484-TC; 85025-TC; 85730-TC; 87040-TC; 87081-TC; 87086-TC; 93307-TC; 97112-TC; 97116-TC; 97530-TC; A4217; G0378; J0456; J0696; J1815; J2270; J2405; J3010; J3475; J3490; J7030; J7050; J7060

== ENCOUNTER 2019-06-16 02:40 | Inpatient (IN) | payer MEDICARE, MEDICAID ==
[~2019-06-16] VITALS: Ht 182.9 cm; Wt 140.6 kg
[~2019-06-16 02:40] MED LIST changes: +ALBU18HF2 IH; +APIX5TAB4 PO; -DIGO125T PO; +PREG50CA PO; +TRAM50TA2 PO; +ZOLP5TAB2 PO
--- NOTE | 2019-06-16 02:50 | NUR ---
PT [id number] FROM HOME C/O ABD PAIN AND DIZZINESS X 2 DAYS. PATIENT STATES WAS D/C HERE FROM [facility] X 1 WEEK AGO FOR RENAL FAILURE. PT ON MONITOR IN BED 3. WILL CONTINUE TO MONITOR.
[2019-06-16] MEDS ORDERED: ONDANSETRON HCL/PF 4 MG/2 ML VIAL ONE (03:13)
[2019-06-16] MEDS ORDERED: FAMOTIDINE/PF INJ 20 MG/2 ML VIAL IV ONE ×2 (03:25→03:30)
[2019-06-16] MEDS ORDERED: MORPHINE SULFATE INJ 4 MG/ML DISP.SYRIN ONE ×2 (03:25→05:04)
[2019-06-16] MEDS ORDERED: IV NS 0.9% 500 ML BAG IV ONE (03:30)
[2019-06-16] MEDS ORDERED: MORPHINE SULFATE INJ 2 MG/ML DISP.SYRIN IV ONE ×2 (03:30→05:00)
[2019-06-16] MEDS ORDERED: ONDANSETRON HCL/PF 4 MG/2 ML VIAL IVP ONE (03:30)
[2019-06-16 03:32] LABS: BASOPHILS # (AUTO) 0.1 /CMM (0.0-0.2); BASOPHILS % (AUTO) 1.1 % (0.0-2.0); CALCIUM, SERUM 9.3 mg/dL (8.5-10.1); CARBON DIOXIDE 24 mmol/L (21-32); CHLORIDE 104 mmol/L (98-107); CREATININE 2.8 mg/dL (0.6-1.3); EOSINOPHILS % (AUTO) 2.1 % (0.0-6.0); GLUCOSE 151 mg/dL (74-106); HEMATOCRIT 36 % (39-51); HEMOGLOBIN 12.1 g/dL (13.5-17.5); LYMPHOCYTES # (AUTO) 1.6 /CMM (0.8-4.8); LYMPHOCYTES % (AUTO) 18.6 % (20.0-44.0); MEAN CORPUSCULAR HGB CONC 33 g/dl (31.0-36.0); MEAN CORPUSCULAR VOLUME 94 fL (80-96); MONOCYTES % (AUTO) 12.2 % (2.0-12.0); NEUTROPHILS # (AUTO) 5.6 /CMM (1.8-8.9); PLATELET COUNT (AUTO) 400 /CMM (150-450); POTASSIUM 3.5 mmol/L (3.5-5.1); RED BLOOD CELL COUNT(AUTO) 3.86 MIL/uL (4.5-6.0); SODIUM SERUM 140 mmol/L (136-145); UREA NITROGEN, BLOOD 38 mg/dL (7-18); WHITE BLOOD COUNT (AUTO) 8.4 K/uL (4.3-11.0)
[2019-06-16 03:38] LABS: ALANINE AMINOTRANSFERASE 83 U/L (12-78); ALBUMIN 3.2 g/dL (3.4-5.0); ALKALINE PHOSPHATASE 95 U/L (46-116); ASPARTATE AMINOTRANSFERASE 43 U/L (15-37); BILIRUBIN,DIRECT 0.1 mg/dL (0.0-0.2); BILIRUBIN,TOTAL 0.3 mg/dL (0.2-1.0); LIPASE 179 U/L (73-393); TOTAL PROTEIN, SERUM 8.4 g/dL (6.4-8.2)
--- NOTE | 2019-06-16 03:53 | NUR ---
PT TAKEN TO RADIOLOGY VIA MARIA FERNANDA
--- NOTE | 2019-06-16 04:09 | NUR ---
PT RETURNED FROM RADIOLOGY. PT TOLERATED WELL.
--- NOTE | 2019-06-16 05:10 | NUR ---
Patient is resting comfortably in bed with eyes closed. Easily aroused. VSS.
--- NOTE | 2019-06-16 05:17 | NUR ---
REPORT GIVEN TO TATE LNAIER FOR RAJINDER
[2019-06-16] MEDS ORDERED: MAGNESIUM HYDROXIDE 30 ML UDC PO PRN (05:30)
[2019-06-16] MEDS ORDERED: ONDANSETRON HCL/PF 4 MG/2 ML VIAL IVP PRN (05:30)
[2019-06-16] MEDS ORDERED: MAG HYDROX/AL HYDROX/SIMETH 30 ML UDC PO PRN (05:30)
[2019-06-16] MEDS ORDERED: ACETAMINOPHEN 325 MG TABLET PO PRN (05:30)
[2019-06-16] MEDS ORDERED: ZOLPIDEM TARTRATE 5 MG TABLET PO PRN (05:30)
[2019-06-16] MEDS ORDERED: Z GUARD REMEDY 2 OZ OINT TP PRN (05:30)
[2019-06-16] MEDS ORDERED: HYDROCODONE/APAP 5/325MG 1 EACH TABLET PO PRN (05:30)
[2019-06-16 06:30] VITALS: BP 147/68
[2019-06-16 06:56] VITALS: BP 147/68
--- NOTE | 2019-06-16 07:37 | NUR ---
RECEIVED PATIENT IN BED RESTING. PATIENT A/OX4, ABLE TO MAKE NEEDS KNOWN. DIAGNOSIS OF SMALL BOWEL OBSTRUCTION. NOT IN ANY FORM OF DISTRESS. NO SOB. DENIED PAIN OR DISCOMFORT AT THIS TIME. NO DIZZINESS. NOTED WITH ILEOSTOMY BAG. IV ACCESS ON RIGHT AC #18 INTACT AND PATENT. PER PATIENT, HE DOESNT HAVE ANY OPEN WOUNDS, REFUSED BODY CHECK & PICTURES. ALL BELONGINGS WAS NOTED IN THE BELONGINGS FORM BY TATE STOUT; BELONGINGS AT BEDSIDE. KEPT NPO. BED IN LOW/YAW DPSOITION, SIDERAILS UPX2, CALL LIGHT IN REACH. WILL CONTINUE TO MONIOTR ACCORDINGLY.
[2019-06-16 08:00] VITALS: BP 147/68
[2019-06-16] MEDS ORDERED: PANTOPRAZOLE 40 MG VIAL IV SCH (09:00)
--- NOTE | 2019-06-16 09:00 | NUR ---
RN NOTES PATIENT REFUSED TO PUT MONEY IN THE SAFE. EXPLAINED POLICY BUT STILL REFUSED. VERBALIZED UNDERSTANDING THAT HOSPITAL IS NOT LIABLE IF MONEY IS LOST. BELONGINGS FORM SIGNED
[2019-06-16] MEDS: IV D5/0.45 NACL 1,000 ML IV PRN (09:49)
[2019-06-16] MEDS: FAMOTIDINE/PF INJ 20 MG/2 ML VIAL IV SCH ×2 (09:53→16:43)
[2019-06-16] MEDS: MORPHINE SULFATE INJ 2 MG/ML DISP.SYRIN IV PRN ×4 (09:57→22:42)
--- NOTE | 2019-06-16 11:38 | NUR ---
RN NOTES CALLED [facility] FOR STEVE DUNLAP DNP NEED TO VERIFY ORDERS.
--- NOTE | 2019-06-16 12:15 | NUR ---
RN NOTES RECEIVED ORDERS TO START PATIENT ON CLEAR LIQUID DIET
[2019-06-16 16:00] VITALS: BP 125/71
--- NOTE | 2019-06-16 19:29 | NUR ---
RN CLOSING NOTES PATIENT IN STABLE CONDITION. ALL NEEDS ATTENDED AND PROVIDED. ALL DUE MEDICATIONS GIVEN ORDERED. ASSISTED WITH ADLS. KEPT PATIENT SAFE AND COMFORTABLE. BED IN LOW/LOCKED POSITION, SIDERAILS UPX2, CALL LIGHT IN REACH. ENDORSED TO TATE NAQVI FOR RAJINDER.
--- NOTE | 2019-06-16 19:50 | NUR ---
RN OPENING NOTES RECEIVED REPORT FROM DAYSHIFT TATE BARRERA. FOUND Pt AWAKE, RESTING IN BED, WATCHING TV. NO S/S OF ACUTE DISTRESS OR SOB NOTED. Pt IS A/OX4, VERBAL, ABLE TO MAKE NEEDS KNOWN. IV ACCESS ON RAC #18G, IVF D5 1/2NS @100ML/HR, INFUSING WELL. SAFETY MEASURES IN PLACE. BED LOW, LOCKED, HOB ELEVATED, SIDE RAILS UP, CALL LIGHT AND BEDSIDE TABLE WITHIN REACH. WILL CONTINUE TO MONITOR Pt's CONDITION AND SAFETY THROUGHOUT THE NIGHT.
[2019-06-16 20:00] VITALS: BP 132/58
[2019-06-16 20:23] VITALS: BP 132/48
[2019-06-17] MEDS: IV D5/0.45 NACL 1,000 ML IV PRN ×2 (00:10→13:54)
[2019-06-17] MEDS: MORPHINE SULFATE INJ 2 MG/ML DISP.SYRIN IV PRN ×4 (03:16→20:25)
[2019-06-17 06:36] LABS: EOSINOPHILS % (AUTO) 5.4 % (0.0-6.0); HEMATOCRIT 33 % (39-51); HEMOGLOBIN 10.7 g/dL (13.5-17.5); LYMPHOCYTES # (AUTO) 1.1 /CMM (0.8-4.8); LYMPHOCYTES % (AUTO) 21.3 % (20.0-44.0); MEAN CORPUSCULAR HGB CONC 32 g/dl (31.0-36.0); MEAN CORPUSCULAR VOLUME 95 fL (80-96); MONOCYTES # (AUTO) 0.6 /CMM (0.1-1.30); MONOCYTES % (AUTO) 11.6 % (2.0-12.0); NEUTROPHILS % (AUTO) 60.7 % (43.0-81.0); PLATELET COUNT (AUTO) 302 /CMM (150-450); RED BLOOD CELL COUNT(AUTO) 3.51 MIL/uL (4.5-6.0)
--- NOTE | 2019-06-17 06:50 | NUR ---
RN CLOSING NOTES NO SIGNIFICANT CHANGES IN Pt's CONDITION. Pt REMAINED STABLE PER BASELINE. NO S/S OF ACUTE DISTRESS OR SOB NOTED DURING THE NIGHT. ALL NEEDS MET AND ATTENDED TO. SAFETY MEASURES IN PLACE. WILL ENDORSE TO DAYSHIFT RN FOR Pt's RAJINDER.
[2019-06-17 07:34] LABS: CALCIUM, SERUM 8.9 mg/dL (8.5-10.1); CREATININE 1.6 mg/dL (0.6-1.3); MAGNESIUM 1.8 mg/dL (1.8-2.4); PHOSPHORUS 3.6 mg/dL (2.5-4.9); POTASSIUM 3.3 mmol/L (3.5-5.1)
[2019-06-17 08:00] VITALS: BP 128/79
--- NOTE | 2019-06-17 08:00 | NUR ---
RN NOTES RECEIVED PATIENT IN THE BED A/O X3/4 MALE OBESE BED REST. PATIENT HAS NO ACUTE RESPIRATORY DISTRESS, V/S TAKEN STABLE, PATIENT WAS COMPLAINING OF DULL ABDOMINAL PAIN 6/10 PER PAIN SCALE, PATIENT HAS A ILEOSTOMY ON LEFT MID ABDOMEN INTACT. PATIENT USING URINAL. PATIENT TURN AND REPOSTION SELF IN THE BED SELF. IV ACCESS ON RIGHT FA INTACT INFUSING D51/2 NS AT 75 ML/HR , PATIENT NPO AT THIS TIME GOING TO HAVE SMALL BOWEL FOLLOW THROUGH , CALL LIGHT WITHIN TO REACH, CONTINUED MONITORING.
[2019-06-17] MEDS: FAMOTIDINE/PF INJ 20 MG/2 ML VIAL IV SCH ×2 (08:19→17:02)
--- NOTE | 2019-06-17 08:20 | NUR ---
RN NOTES ADMINISTERED MORPHINE SULFATE 2 MG/ML IV PUSH DULL ABDOMINAL PAIN 04/14 PER PATIENT REQUEST, V/S TAKEN BP-128/79, P-62, R-18. CONTINUED MONITORING.
[2019-06-17] MEDS ORDERED: POTASSIUM CHLORIDE 20 MEQ POWDER PACKET PO SCH (11:00)
--- NOTE | 2019-06-17 11:30 | NUR ---
RN NOTES PATIENT REFUSED SMALL BOWEL FOLLOW THROUGH AT THIS TIME, NOTIFIED HOSPITALIST JAS POWELL. CONTINUED MONITORING.
[2019-06-17 13:15] LABS: ALBUMIN 2.8 g/dL (3.4-5.0); BILIRUBIN,DIRECT 0.1 mg/dL (0.0-0.2); BILIRUBIN,TOTAL 0.5 mg/dL (0.2-1.0); TOTAL PROTEIN, SERUM 7.2 g/dL (6.4-8.2)
--- NOTE | 2019-06-17 13:31 | NUR ---
RN NOTES ADMINISTERED MORPHINE SULFATE 2 MG/ML IV PUSH FOR LOWER ABDOMINAL PAIN 04/14 PER PATIENT REQUEST, V/S TAKEN BP 133/73, P-83, CONTINUED MONITORING.
--- NOTE | 2019-06-17 14:05 | NUR ---
RN NOTES PATIENT RESTING IN THE BED, MEDICATION WERE ADMINISTERED FOR PAIN EFFECTIVE, CONTINUED MONITORING.
[2019-06-17 16:00] VITALS: BP 130/84
--- NOTE | 2019-06-17 16:00 | NUR ---
RN NOTES GET CALL FROM [facility]CRO[facility]OLOGY, PATIENT POSITIVE FOR MRSA OF RIGHT NARES . HOSPITALIST NOTIFIED, GET NEW ORDER. ORDER TAKEN AND CARRIED OUT.
--- NOTE | 2019-06-17 18:30 | NUR ---
RN NOTES PATIENT STABLE REFUSED PAIN AT THIS TIME, PATIENT TOLERATED FOOD WELL, NEEDS ATTENDED AND ANTICIPATED. SAFETY PRECAUTION MAINTAINED ALL THE TIME. ENDORSED ONCOMING NURSE FOLLOW PLAN OF CARE.
--- NOTE | 2019-06-17 19:30 | NUR ---
RECEIVED PATIENT IN BED AWAKE. AO X 3, ABLE TO MAKE NEEDS KNOWN. NO ACUTE DISTRESS NOTED. MONITORED FOR PAIN. IV SITE PATENT, INTACT; IVF INFUSING ORDERED. ILEOSTOMY SITE PATENT, INTACT; DRAINING LIQUID STOOL. SAFETY REMINDERS GIVEN. ON LOW BED WITH BILATERAL UPPER SIDE RAILS UP. CALL LYNN WITHIN EASY REACH. WILL CONTINUE TO MONITOR.
[2019-06-17 19:59] VITALS: BP 110/85
[2019-06-17 20:00] VITALS: BP 110/85
[2019-06-17] MEDS: MUPIROCIN OINT 2% 22 GM TUBE SCH (20:23)
[2019-06-18] MEDS: MORPHINE SULFATE INJ 2 MG/ML DISP.SYRIN IV PRN ×3 (00:39→09:09)
[2019-06-18] MEDS: IV D5/0.45 NACL 1,000 ML IV PRN (03:49)
--- NOTE | 2019-06-18 06:00 | NUR ---
PATIENT ASLEEP, EASILY AROUSABLE. RESPIRATIONS EVEN. NO SIGNS OF PAIN NOTED. DUE MED GIVEN WITH NO ASE NOTED. IVF INFUSING ORDERED. NEEDS ATTENDED. ILEOSTOMY DRAINED = 675 ML OUTPUT. SAFETY REMINDERS AND COMFORT MEASURES IN PLACE. WILL GIVE REPORT TO DAY SHIFT FOR CONTINUITY OF CARE.
[2019-06-18 06:54] LABS: CALCIUM, SERUM 8.4 mg/dL (8.5-10.1); CREATININE 1.3 mg/dL (0.6-1.3); POTASSIUM 3.6 mmol/L (3.5-5.1)
--- NOTE | 2019-06-18 07:50 | NUR ---
MS RN OPENING NOTE PATIENT IN BED SLEEPING COMFORTABLY. PATIENT IN NO ACUTE DISTRESS. NO SOB NOTED. NO FACIAL GRIMACING NOTED. PATIENT BREATHING IS EVEN AND UNLABORED. ILEOSTOMY INTACT AND PATENT. PATIENT BED IS LOCKED AND IN LOWEST POSITION. CALL LIGHT WITHIN REACH. WILL CONTINUE TO MONITOR.
[2019-06-18 08:00] VITALS: BP 157/77
[2019-06-18] MEDS: FAMOTIDINE/PF INJ 20 MG/2 ML VIAL IV SCH (09:08)
[2019-06-18] MEDS: MUPIROCIN OINT 2% 22 GM TUBE SCH (09:08)
--- NOTE | 2019-06-18 10:17 | NUR ---
MS RN NOTE PATIENT REFUSED SMALL BOWEL FOLLOW THROUGH THIS AM. SHERRY ROMERO MADE AWARE. SEEN AND EVALUATED BY MD. ORDERS TO UPGRADE DIET TO CARDIAC DIET AND MONITOR. PATIENT IN NO ACUTE DISTRESS. WILL CONTINUE TO MONITOR.
--- NOTE | 2019-06-18 13:30 | NUR ---
MS RN NOTE PATIENT REFUSED TO HAVE SKIN CHECKED. PATIENT STATES "YOU DONT NEED TO CHECK MY SKIN IM FINE". REFUSAL NOTED.
--- NOTE | 2019-06-18 13:45 | NUR ---
MS SOFTWARE BUILD ENGINEER NOTE PATIENT MEDICALLY STABLE. PATIENT IN NO ACUTE DISTRESS. NO SOB NOTED. PATIENT BREATHING IS EVEN AND UNLABORED. PATIENT BREATHING ON ROOM AIR SATURATING >95% SPO2. DC INSTRUCTIONS PROVIDED. PATIENT VERBALIZED UNDERSTANDING. PATIENT SIGNED BELONGINGS LIST AND IN CHART. PATIENT HAS ALL BELONGINGS WITH HIM. PATIENT ILEOSTOMY WAS CLEAN AND INTACT. PATIENT KEPT CLEAN, DRY, AND COMFORTABLE. PATIENT EXTREMITIES OFFLOADED PATIENT ALLOWED. PATIENT REFUSED TO HAVE SKIN CHECKED. ALL NURSING NEEDS MET. PATIENT GOING HOME BY TAXI. MADE AWARE.
== END 2019-06-18 14:20 | disposition home or self-care (01) | DRG 393 ==
LOC: ER 02:40 → MED 05:01
PROVIDERS: ADMIT Hospitalist; ATTEND Nurse Practitioner Acute Care
DX: K66.0 Peritoneal adhesions (postprocedural) (postinfection) (principal); N17.0 Acute kidney failure with tubular necrosis; E44.1 Mild protein-calorie malnutrition; Z68.41 Body mass index [BMI] 40.0-44.9, adult; E86.9 Volume depletion, unspecified; I48.91 Unspecified atrial fibrillation; N18.9 Chronic kidney disease, unspecified; I12.9 Hypertensive chronic kidney disease with stage 1 through stage 4 chronic kidney disease, or unspecified chronic kidney disease; K46.9 Unspecified abdominal hernia without obstruction or gangrene; A08.4 Viral intestinal infection, unspecified; R74.0 Nonspecific elevation of levels of transaminase and lactic acid dehydrogenase [LDH]; D63.8 Anemia in other chronic diseases classified elsewhere; Z93.3 Colostomy status; E66.01 Morbid (severe) obesity due to excess calories; E88.09 Other disorders of plasma-protein metabolism, not elsewhere classified; K76.0 Fatty (change of) liver, not elsewhere classified; Z79.01 Long term (current) use of anticoagulants
CPT/HCPCS: 36415; 74018; 76700-TC; 80048-TC; 80076-TC; 83690-TC; 83735-TC; 84100-TC; 84484-TC; 85025-TC; 87081-TC; C9113; G0378; J2270; J2405; J3490; J7030; J7040

== ENCOUNTER 2019-06-20 21:24 | Inpatient (IN) | payer MEDICARE, MEDICAID ==
[~2019-06-20] VITALS: Ht 182.9 cm; Wt 137.4 kg
[~2019-06-20 21:24] MED LIST changes: -TRAM50TA2 PO
--- NOTE | 2019-06-20 21:27 | NUR ---
ABDOMINAL PAIN WITH N/V SINCE 0900 PT VITALS ARE STABLE A0*4 WILL CONTINUE TO MONITER AND WAIT FOR MD ORDERS
[2019-06-20] MEDS ORDERED: ONDANSETRON HCL/PF 4 MG/2 ML VIAL IVP ONE (22:00)
[2019-06-20] MEDS ORDERED: IV NS 0.9% 1,000 ML BAG IV ONE (22:00)
[2019-06-20] MEDS ORDERED: HYDROMORPHONE INJ 2 MG/ML DISP.SYRIN IV ONE (22:00)
[2019-06-20 22:10] LABS: BASOPHILS # (AUTO) 0.1 /CMM (0.0-0.2); BASOPHILS % (AUTO) 0.6 % (0.0-2.0); EOSINOPHILS % (AUTO) 1.9 % (0.0-6.0); HEMATOCRIT 40 % (39-51); HEMOGLOBIN 13.6 g/dL (13.5-17.5); LYMPHOCYTES % (AUTO) 10.2 % (20.0-44.0); MEAN CORPUSCULAR HGB CONC 34 g/dl (31.0-36.0); MEAN CORPUSCULAR VOLUME 95 fL (80-96); MONOCYTES # (AUTO) 0.9 /CMM (0.1-1.30); MONOCYTES % (AUTO) 8.6 % (2.0-12.0); NEUTROPHILS % (AUTO) 78.7 % (43.0-81.0); PLATELET COUNT (AUTO) 357 /CMM (150-450); RED BLOOD CELL COUNT(AUTO) 4.26 MIL/uL (4.5-6.0); WHITE BLOOD COUNT (AUTO) 10.1 K/uL (4.3-11.0)
[2019-06-20] MEDS ORDERED: HYDROMORPHONE 1 MG/1 ML DISP.SYRIN ONE (22:15)
[2019-06-20] MEDS ORDERED: ONDANSETRON HCL/PF 4 MG/2 ML VIAL ONE (22:15)
[2019-06-20 22:26] LABS: CALCIUM, SERUM 10.5 mg/dL (8.5-10.1); CREATININE 2.3 mg/dL (0.6-1.3)
[2019-06-20 22:32] LABS: ALBUMIN 3.5 g/dL (3.4-5.0); BILIRUBIN,DIRECT 0.1 mg/dL (0.0-0.2); BILIRUBIN,TOTAL 0.5 mg/dL (0.2-1.0)
[2019-06-20] MEDS ORDERED: MORPHINE SULFATE INJ 2 MG/ML DISP.SYRIN IV ONE (23:30)
[2019-06-20] MEDS ORDERED: MORPHINE SULFATE INJ 4 MG/ML DISP.SYRIN ONE (23:44)
--- NOTE | 2019-06-20 23:46 | NUR ---
MED-SURGE 327-2
[2019-06-21] MEDS ORDERED: ONDANSETRON HCL/PF 4 MG/2 ML VIAL IVP PRN (01:00)
[2019-06-21] MEDS ORDERED: HYDROCODONE/APAP 5/325MG 1 EACH TABLET PO PRN (01:00)
[2019-06-21] MEDS ORDERED: Z GUARD REMEDY 2 OZ OINT TP PRN ×2 (01:00→03:30)
[2019-06-21] MEDS ORDERED: ACETAMINOPHEN 325 MG TABLET PO PRN (01:00)
[2019-06-21] MEDS ORDERED: MAGNESIUM HYDROXIDE 30 ML UDC PO PRN (01:00)
[2019-06-21] MEDS ORDERED: ALBUTEROL FS 2.5 MG/3 ML VIAL.NEB NEB PRN (01:00)
[2019-06-21] MEDS ORDERED: MAG HYDROX/AL HYDROX/SIMETH 30 ML UDC PO PRN (01:00)
--- NOTE | 2019-06-21 01:07 | NUR ---
REPPORT GIVEN TO [place] IN 3 W. AT 0100
--- NOTE | 2019-06-21 01:10 | NUR ---
MS HYDRAULIC STRAINER OPERATOR NOTES Patient came to unit for acute renal failure and intractable nausea and vomiting. Patient came via gurney, alert, oriented x 3. Breathing even and unlabored. Not in any distress, on room air. Patient denies any pain at this time. Patient denies smoking. IV access on R) hand g#20, intact and patent. Patient refused skin assessment; stated he does not have any skin issues. Ileostomy site on L mid abdomen. Belongings checked by RONAN Olivares. Oriented to call light- placed within reach. Bed in low, locked position. Will Continue to monitor accordingly
[2019-06-21 01:15] VITALS: BP 117/92
[2019-06-21] MEDS: IV NS 0.9% 1,000 ML IV PRN ×2 (01:45→12:26)
--- NOTE | 2019-06-21 01:45 | NUR ---
RN NOTES IV fluid of NS at 100mL/hr started
[2019-06-21 04:00] VITALS: BP 128/85
[2019-06-21] MEDS: HYDROMORPHONE INJ 2 MG/ML DISP.SYRIN IV PRN ×5 (04:03→20:55)
--- NOTE | 2019-06-21 04:03 | NUR ---
RN NOTES Patient c/o abdominal pain, 06/14. Requesting for Dilaudid. V/S stable. Dilaudid 1mg given as ordered. Excess wasted with another RN. Will continue to monitor
--- NOTE | 2019-06-21 06:37 | NUR ---
MS RN CLOSING NOTES Patient still sleeping in bed, easily arousable. Breathing even and unlabored. Not in any distress, on room air. Peripheral IV infusing at 100mL/hr. No complaints of pain or discomfort at this time. Ileostomy bag on L side of the abdomen in place, drained about 500mL of yellow, liquid stool. No acute changes overnight. All needs attended. Safety measures in place; call light within reach, bed in low, locked position. Will endorse RAJINDER to oncoming RN
[2019-06-21 07:06] LABS: BASOPHILS % (AUTO) 0.5 % (0.0-2.0); EOSINOPHILS % (AUTO) 2.9 % (0.0-6.0); HEMATOCRIT 37 % (39-51); HEMOGLOBIN 11.8 g/dL (13.5-17.5); LYMPHOCYTES # (AUTO) 1.5 /CMM (0.8-4.8); MEAN CORPUSCULAR HGB CONC 32 g/dl (31.0-36.0); MEAN CORPUSCULAR VOLUME 95 fL (80-96); MONOCYTES # (AUTO) 0.9 /CMM (0.1-1.30); MONOCYTES % (AUTO) 12.3 % (2.0-12.0); NEUTROPHILS # (AUTO) 4.8 /CMM (1.8-8.9); NEUTROPHILS % (AUTO) 64.3 % (43.0-81.0); PLATELET COUNT (AUTO) 313 /CMM (150-450); RED BLOOD CELL COUNT(AUTO) 3.86 MIL/uL (4.5-6.0); WHITE BLOOD COUNT (AUTO) 7.5 K/uL (4.3-11.0)
[2019-06-21 07:28] LABS: ALBUMIN 3.1 g/dL (3.4-5.0); BILIRUBIN,TOTAL 0.4 mg/dL (0.2-1.0); CALCIUM, SERUM 9.3 mg/dL (8.5-10.1); CREATININE 2.3 mg/dL (0.6-1.3); MAGNESIUM 1.7 mg/dL (1.8-2.4); PHOSPHORUS 4.6 mg/dL (2.5-4.9); POTASSIUM 3.7 mmol/L (3.5-5.1)
--- NOTE | 2019-06-21 07:30 | NUR ---
MS RN OPENING NOTES RECEIVED PATIENT AWAKE IN NO ACUTE SIGNS OF DISTRESS. A/O X4. ABLE TO MAKE NEEDS KNOWN, DENIES PAIN OR ANY DISCOMFORTS AT THIS TIME. ON ROOM AIR, BREATHING EVEN AND UNLABORED. IV ACCESS ON RIGHT HAND G # 22 BOTH INTACT AND PATENT, IVF OF NS RUNNING @100 ML/HR, NO S/S OF INFILTRATIONS NOTED. ILEOSTOMY ON LEFT SIDE OF ABDOMEN IN PLACE AND NOTED WITH THICK YELLOWISH DRAINAGE TO COLLECTING BAG. SAFETY PRECAUTIONS IN PLACE. CALL LIGHT WITHIN REACH, BED AT LOWEST SETTING, BED LOCKED WITH SIDE RAILS UP X2. WILL CONTINUE TO MONITOR PATIENT ACCORDINGLY.
[2019-06-21 08:00] VITALS: BP 119/78
[2019-06-21] MEDS: PANTOPRAZOLE 40 MG TABLET.DR PO SCH (08:07)
--- NOTE | 2019-06-21 08:17 | NUR ---
RN NOTES/PAIN MANAGEMENT PATIENT C/O ACHING AND DULL PAIN ON HIS ABDOMEN WITH SCALE OF 8/10. PRN DILAUDID 1MG/0.5ML IVP ADMINISTERED AT 0808. WILL CONTINUE TO MONITOR AND REASSESS PT.
[2019-06-21] MEDS ORDERED: Magnesium 1GM/D5W 100ML PREMIX PIGGYBACK IV ONE (09:00)
[2019-06-21] MEDS: PREGABALIN 25 MG CAPSULE PO SCH (09:01)
[2019-06-21] MEDS: METOPROLOL TARTRATE 25 MG TABLET PO SCH ×2 (09:02→16:36)
[2019-06-21] MEDS: APIXABAN 5 MG TABLET PO SCH ×2 (09:03→16:37)
[2019-06-21] MEDS ORDERED: Magnesium 1GM/D5W 100ML PREMIX 100 ML IV SCH (09:47)
[2019-06-21 10:50] LABS: CREATININE, URINE 555.8 MG/DL (30.0-125.0)
[2019-06-21 11:25] LABS: APPEARANCE,URINE CLEAR (CLEAR); BILIRUBIN,URINE 1+ (NEGATIVE); BLOOD, URINE 1+ Ery/uL (NEGATIVE); COLOR,URINE DARK YELLO (YELLOW); KETONES,URINE NEGATIVE (NEGATIVE); NITRITE, URINE NEGATIVE (NEGATIVE); PH,URINE 5.5 (5.0-8.0); PROTEIN,URINE TRACE mg/dl (NEGATIVE); UGLUCOSE NEGATIVE (NEGATIVE); UROBILINOGEN,URINE 0.2 EU/dL (0.2)
--- NOTE | 2019-06-21 12:22 | NUR ---
RN NOTES/PAIN MANAGEMENT PATIENT IN BED WITH COMPLAINED OF ACHING AND DULL PAIN ON HIS MID LOWER ABDOMEN WITH SCALE OF 8/10. PRN DILAUDID 1MG/0.5ML IVP ADMINISTERED AT 1217. WILL CONTINUE TO MONITOR AND REASSESS PT.
[2019-06-21 12:46] LABS: LEUKOCYTE ESTERASE ,URINE 2+ (NEGATIVE)
[2019-06-21 12:47] LABS: BACTERIA,URINE Few /HPF (None Seen); SQUAMOUS EPITHELIAL CELL,UR Few /HPF (None Seen); WBC,URINE 21-50 /HPF (0-3)
[2019-06-21 12:49] LABS: EOSINOPHIL,URINE None Seen
--- NOTE | 2019-06-21 13:52 | NUR ---
RN NOTES PATIENT WITH LOW MAGNESIUM LEVEL 1.7 TODAY, ADMINISTERED MAGNESIUM 1G/100ML D5W IV X 1 DOSE IVPB ORDERED. WILL CONTINUE TO MONITOR.
--- NOTE | 2019-06-21 14:06 | NUR ---
RN NOTES LEFT MESSAGE TO MOLDER SHOULDER PAD ROMERO REGARDING URINALYSIS RESULTS. AWAITING FOR RESPONSE Addendum: 06/21/19 at 1425 by DANTE CHINO RN CORRECTION: PT'S HOSPITALIST TODAY IS ALEXANDER AKINS AND INFORMED OF URINALYSIS RESULTS. NO NEW ORDER MADE AT THIS TIME.
[2019-06-21 16:00] VITALS: BP 162/73
[2019-06-21] MEDS: CEFTRIAXONE 1 G in IV D5W 50 ML IV SCH (18:37)
--- NOTE | 2019-06-21 18:59 | NUR ---
MS RN CLOSING NOTES PATIENT IN BED AWAKE AND WATCHING TV. HOB ELEVATED. A/O X3-4. ABLE TO MAKE NEEDS KNOWN,. PT TOLERATING ROOM AIR WITH NO SOB NOTED THROUGHOUT THE DAY. IV ACCESS ON RIGHT HAND G # 22 INTACT AND PATENT, IVF OF NS RUNNING @100 ML/HR, NO S/S OF INFILTRATIONS NOTED. ILEOSTOMY ON LEFT SIDE OF ABDOMEN IN PLACE AND NOTED WITH WATERY THICK GREENISH YELLOWISH DRAINAGE TO COLLECTING BAG. ALL NEEDS AND CARE ATTENDED WELL. SAFETY MEASURES KEPT IN PLACE. CALL LIGHT WITHIN REACH, BED AT LOWEST POSITION, BED LOCKED WITH SIDE RAILS UP X2. WILL ENDORSE TO SHOT PEENING OPERATOR NURSE FOR RAJINDER.
--- NOTE | 2019-06-21 19:20 | NUR ---
MS RN OPENING NOTES Patient received resting in bed, alert, oriented x 4. Breathing even and unlabored. Not in any distress, on room air. Peripheral IV infusing at 100mL/hr. No complaints of pain or discomfort at this time. Ileostomy bag on L side of the abdomen in place. Safety measures in place; call light within reach, bed in low, locked position. Will continue to monitor accordingly
[2019-06-21 20:00] VITALS: BP 110/76
--- NOTE | 2019-06-21 20:56 | NUR ---
RN NOTES Patient c/o aching, dull abdominal pain, 06/14. Requesting for Dilaudid. V/S stable. Dilaudid 1mg given as ordered. Excess wasted with another RN. Will continue to monitor
[2019-06-21] MEDS: ZOLPIDEM TARTRATE 5 MG TABLET PO PRN (21:54)
[2019-06-22] MEDS: HYDROMORPHONE INJ 2 MG/ML DISP.SYRIN IV PRN ×6 (00:56→21:39)
--- NOTE | 2019-06-22 06:54 | NUR ---
MS RN CLOSING NOTES Patient still sleeping in bed, easily arousable. Breathing even and unlabored. Not in any distress, on room air. Peripheral IV infusing at 100mL/hr. No complaints of pain or discomfort at this time. Ileostomy bag on L side of the abdomen in place, drained about 1800mL of yellow, liquid stool. No acute changes overnight. All needs attended. Safety measures in place; call light within reach, bed in low, locked position. Will endorse RAJINDER to oncoming RN
--- NOTE | 2019-06-22 07:44 | NUR ---
MS RN OPENING NOTES RECEIVED PATIENT RESTING IN BED COMFORTABLY IN MODERATE HIGH BACK REST. A/O X 4. IV FLUIDS ON RIGHT HAND #22 WITH NS @ 100ML/HR. PATENT AND INTACT. ILEOSTOMY BAG ON LEFT SIDE OF ABDOMEN IN PLACE. SAFETY MEASURES IN PLACE, BED IN LOW LOCKED POSITION WITH SIDE RAILS UP X2. CALL LIGHT WITHIN EASY REACH. WILL CONTINUE TO MONITOR.
[2019-06-22 08:00] VITALS: BP 94/61
[2019-06-22 08:01] LABS: BASOPHILS # (AUTO) 0.1 /CMM (0.0-0.2); BASOPHILS % (AUTO) 0.9 % (0.0-2.0); EOSINOPHILS % (AUTO) 5.9 % (0.0-6.0); HEMATOCRIT 35 % (39-51); HEMOGLOBIN 11.6 g/dL (13.5-17.5); LYMPHOCYTES # (AUTO) 1.2 /CMM (0.8-4.8); LYMPHOCYTES % (AUTO) 20.9 % (20.0-44.0); MEAN CORPUSCULAR HGB CONC 33 g/dl (31.0-36.0); MEAN CORPUSCULAR VOLUME 95 fL (80-96); MONOCYTES # (AUTO) 0.8 /CMM (0.1-1.30); MONOCYTES % (AUTO) 13.9 % (2.0-12.0); NEUTROPHILS # (AUTO) 3.5 /CMM (1.8-8.9); NEUTROPHILS % (AUTO) 58.4 % (43.0-81.0); PLATELET COUNT (AUTO) 253 /CMM (150-450); RED BLOOD CELL COUNT(AUTO) 3.72 MIL/uL (4.5-6.0)
[2019-06-22] MEDS: PANTOPRAZOLE 40 MG TABLET.DR PO SCH (08:04)
[2019-06-22 08:28] LABS: ALBUMIN 2.8 g/dL (3.4-5.0); BILIRUBIN,TOTAL 0.3 mg/dL (0.2-1.0); CALCIUM, SERUM 8.8 mg/dL (8.5-10.1); CREATININE 1.8 mg/dL (0.6-1.3); MAGNESIUM 1.6 mg/dL (1.8-2.4); TOTAL PROTEIN, SERUM 7.5 g/dL (6.4-8.2)
[2019-06-22] MEDS: PREGABALIN 25 MG CAPSULE PO SCH (08:48)
[2019-06-22] MEDS: METOPROLOL TARTRATE 25 MG TABLET PO SCH ×2 (08:48→16:29)
[2019-06-22] MEDS: APIXABAN 5 MG TABLET PO SCH ×2 (08:51→16:27)
[2019-06-22] MEDS ORDERED: CEFTRIAXONE 1GM BAG (ER ONLY) 1 GM/50 ML PIGGYBACK IV SCH (09:00)
[2019-06-22] MEDS ORDERED: Magnesium 1GM/D5W 100ML PREMIX 100 ML IV SCH (11:07)
[2019-06-22] MEDS: IV NS 0.9% 1,000 ML IV PRN ×3 (12:58→22:29)
[2019-06-22 16:00] VITALS: BP 118/74
[2019-06-22] MEDS: CEFTRIAXONE 1 G in IV D5W 50 ML IV SCH (16:15)
--- NOTE | 2019-06-22 19:05 | NUR ---
RN INITIAL NOTES: RECEIVED REPORT FROM ELIECER YBARRA. PT IN BED, AWAKE, A/O X3 ON RA RESPIRATIONS EVEN AND UNLABORED. PT STATED TO GIVE HIS PAIN MEDS AT 2140. PT HAS OSTOMY IN PLACED. IV ACCESS ON RIGHT HAND PATENT AND FLUSHING WELL, ON HL. SAFETY PRECAUTIONS FOR FALL INITIATED, CALL LIGHT IN REACH, WILL CONTINUE MONITORING PT.
--- NOTE | 2019-06-22 19:10 | NUR ---
MS RN CLOSING NOTES RECEIVED PATIENT RESTING IN BED COMFORTABLY IN MODERATE HIGH BACK REST. A/O X 4. IV FLUIDS ON RIGHT HAND #22 WITH NS @ 100ML/HR. PATENT AND INTACT. ILEOSTOMY BAG ON LEFT SIDE OF ABDOMEN IN PLACE. SAFETY MEASURES IN PLACE, BED IN LOW LOCKED POSITION WITH SIDE RAILS UP X2. CALL LIGHT WITHIN EASY REACH. WILL ENDORSED TO OYSTER SHIPPER NURSE FOR RAJINDER.
[2019-06-22 20:00] VITALS: BP 103/55
[2019-06-22 20:15] VITALS: BP 103/55
--- NOTE | 2019-06-22 21:39 | NUR ---
PRN DILAUDID 1MG: PT C/O ABDOMINAL PAIN REQUESTING FOR DILAUDID, PRN DILAUDID 1MG IVP ADMINISTERED TO PT AT THIS TIME, WILL CONTINUE TO MONITOR AND REASSESS PT.
[2019-06-22] MEDS: ZOLPIDEM TARTRATE 5 MG TABLET PO PRN (22:39)
--- NOTE | 2019-06-22 22:39 | NUR ---
PRN AMBIEN: PT REQUESTING FOR SLEEPING PILL, PRN AMBIEN ADMINISTERED AT THIS TIME.
[2019-06-23] MEDS: HYDROMORPHONE INJ 2 MG/ML DISP.SYRIN IV PRN ×4 (01:39→13:44)
--- NOTE | 2019-06-23 01:40 | NUR ---
prn dilaudid: pt requesting for dilaudid for c/o abdl pain 06/14, prn dilaudid 1mg ivp administered at this time, will continue to monitor and reassess .
--- NOTE | 2019-06-23 05:40 | NUR ---
prn dilaudid: pt c/o abdominal pain requesting for pain medication, prn dilaudid 1mg ivp administered to pt at this time. will continue to monitor and reasses.
[2019-06-23] MEDS: IV NS 0.9% 1,000 ML IV PRN (06:50)
--- NOTE | 2019-06-23 06:53 | NUR ---
RN CLOSING NOTES: PT IN BED, AWAKE, LAST PAIN MEDS ADMINISTERED AT 0540am. IV ACCESS REMAINS PATENT AND FLUSHING WELL, INFUSING WITH NS AT 100ML/HR. ILEOSTOMY BAG CHANGED TODAY BY PT. PT REFUSED SKIN CHECK AND PHOTOS FOR DOCUMENTATION. VS REMAINS STABLE, NEEDS ATTENDED. SAFETY PRECAUTIONS FOR FALL REMAINS ENGAGED, CALL LIGHT IN REACH, WILL ENDORSE TO DAY RN FOR CONTINUITY OF CARE.
--- NOTE | 2019-06-23 08:09 | NUR ---
MS RN OPENING NOTES RECEIVED PATIENT IN BED, ALERT AND ORIENTED X4. AWAKE. NO SOB OBSERVED. DENIES ANY C/O PAIN NOR DISCOMFORT. DENIES ANY C/O ABD PAIN AND N/V. RIGHT HAND #20 INTACT AND PATENT INFUSING NS @ 100 ML/HR SANDRA WELL. ABLE TO VERBALIZE NEEDS. CALL LIGHT WITHIN REACH. BED IN LOWEST POSITION,
[2019-06-23 08:23] VITALS: BP 123/83
[2019-06-23] MEDS: PANTOPRAZOLE 40 MG TABLET.DR PO SCH (08:39)
[2019-06-23 09:53] VITALS: BP 123/83
[2019-06-23] MEDS: METOPROLOL TARTRATE 25 MG TABLET PO SCH (09:53)
[2019-06-23] MEDS: PREGABALIN 25 MG CAPSULE PO SCH (09:53)
[2019-06-23] MEDS: APIXABAN 5 MG TABLET PO SCH (09:53)
[2019-06-23 10:14] LABS: BASOPHILS # (AUTO) 0.1 /CMM (0.0-0.2); EOSINOPHILS % (AUTO) 6.5 % (0.0-6.0); HEMATOCRIT 35 % (39-51); HEMOGLOBIN 11.3 g/dL (13.5-17.5); MEAN CORPUSCULAR HGB CONC 32 g/dl (31.0-36.0); MEAN CORPUSCULAR VOLUME 95 fL (80-96); MONOCYTES # (AUTO) 0.8 /CMM (0.1-1.30); MONOCYTES % (AUTO) 14.3 % (2.0-12.0); NEUTROPHILS # (AUTO) 3.1 /CMM (1.8-8.9); NEUTROPHILS % (AUTO) 59.2 % (43.0-81.0); PLATELET COUNT (AUTO) 261 /CMM (150-450); RED BLOOD CELL COUNT(AUTO) 3.68 MIL/uL (4.5-6.0); WHITE BLOOD COUNT (AUTO) 5.3 K/uL (4.3-11.0)
[2019-06-23 10:23] LABS: CALCIUM, SERUM 8.6 mg/dL (8.5-10.1); CREATININE 1.3 mg/dL (0.6-1.3); POTASSIUM 4.3 mmol/L (3.5-5.1)
[2019-06-23] MEDS ORDERED: AMOX875T2 PO (12:33)
--- NOTE | 2019-06-23 15:40 | NUR ---
MS RN CLOSING/DISCHARGE NOTES PATIENT ALERT AND ORIENTED X4. AMBULATORY WITH THE USE OF CANE. DENIES ANY C/O PAIN NOR DISCOMFORT AT THIS TIME. DENIES ANY C/O N/V NOR ABDOMINAL PAIN. NO S/S RESPIRATORY DISTRESS. DISCHARGE PACKET AND DISCHARGE INSTRUCTIONS GIVEN AND DISCUSSED WITH PATIENT. IV ACCESS REMOVED WITH CATHETER TIP INTACT WITH GAUZE DRESSING APPLIED. CALLED [facility] AND GAVE REPORT TO ROSALINA ([facility] RN) INCLUDING DISCHARGE INSTRUCTIONS. ALL BELONGINGS ACCOUNTED FOR AND CHECKED BY PATIENT. PATIENT REFUSED PICTURE AND SKIN CHECK. REPORT GIVEN TO EMT PERSONNEL. PATIENT LEFT VIA GURNEY VIA AMBULANCE IN STABLE CONDITION.
== END 2019-06-23 15:45 | DRG 689 ==
LOC: ER 21:34 → MED 23:53
PROVIDERS: ADMIT Nurse Practitioner Acute Care; ATTEND Nurse Practitioner Acute Care
DX: N39.0 Urinary tract infection, site not specified (principal); N17.0 Acute kidney failure with tubular necrosis; E44.0 Moderate protein-calorie malnutrition; E87.1 Hypo-osmolality and hyponatremia; Z68.41 Body mass index [BMI] 40.0-44.9, adult; I12.9 Hypertensive chronic kidney disease with stage 1 through stage 4 chronic kidney disease, or unspecified chronic kidney disease; I48.2 Chronic atrial fibrillation; Z93.3 Colostomy status; N18.9 Chronic kidney disease, unspecified; D63.8 Anemia in other chronic diseases classified elsewhere; E83.42 Hypomagnesemia; K76.0 Fatty (change of) liver, not elsewhere classified; E66.01 Morbid (severe) obesity due to excess calories; E88.09 Other disorders of plasma-protein metabolism, not elsewhere classified; B95.2 Enterococcus as the cause of diseases classified elsewhere; Z87.442 Personal history of urinary calculi; Z79.01 Long term (current) use of anticoagulants; R10.9 Unspecified abdominal pain; M48.56XS Collapsed vertebra, not elsewhere classified, lumbar region, sequela of fracture
CPT/HCPCS: 36415; 80048-TC; 80053-TC; 80076-TC; 81000-TC; 82550-TC; 82570-TC; 83690-TC; 83735-TC; 84100-TC; 84155-TC; 84300-TC; 85025-TC; 87081-TC; 87086-TC; 87186-TC; 97116-TC; 97530-TC; G0378; J0696; J1170; J2270; J2405; J3475; J7030; J7060

== ENCOUNTER 2019-08-14 05:14 | Inpatient (IN) | payer MEDICARE, MEDICAID ==
[~2019-08-14] VITALS: Ht 182.9 cm; Wt 157.4 kg
[~2019-08-14 05:14] MED LIST changes: +AMOX875T2 PO
--- NOTE | 2019-08-14 06:09 | NUR ---
VANDANA. TO ER BED 11. AAOX4. NO REPS DISTRESS NOTED. AMBULATORY. C/O SOB, ABDOMINAL PAIN, NAUSEA AND DIFFICULTY URINATING. PT REPORT SOB BUT PT WAS BREATHING EVEN AND UNLABORED. PT RATES PAIN 6/10. REPORTS NAUSEA. PT REPORTS THAT HE HAS BEEN HAVING DIFFUCULTY URINATING FOR THE PAST 10 HOURS, ONLY DRIBBLING WITH DARK URINE REPORTED. HE ALSO VERBALIZES BURNIGN SENSATION WHEN URINATING. MD AT BEDSIDE FOR EVAL. ORDERS RECEIVED NOTED, AND CARRIED OUT. IV LINE OBTAINED ON R WIRST W/ 20G. BLOOD DRAWN AND SENT TO LAB. PT IS STILL UNABLE TO GIVE URINE AT THIS TIME D/T DIFFUCULTY URINATING.
[2019-08-14 06:10] LABS: BASOPHILS % (AUTO) 0.3 % (0.0-2.0); EOSINOPHILS % (AUTO) 2.1 % (0.0-6.0); HEMATOCRIT 37 % (39-51); HEMOGLOBIN 11.9 g/dL (13.5-17.5); LYMPHOCYTES # (AUTO) 0.6 /CMM (0.8-4.8); LYMPHOCYTES % (AUTO) 6.6 % (20.0-44.0); MEAN CORPUSCULAR HGB CONC 33 g/dl (31.0-36.0); MEAN CORPUSCULAR VOLUME 92 fL (80-96); MONOCYTES % (AUTO) 10.6 % (2.0-12.0); NEUTROPHILS # (AUTO) 7.8 /CMM (1.8-8.9); NEUTROPHILS % (AUTO) 80.4 % (43.0-81.0); PLATELET COUNT (AUTO) 234 /CMM (150-450); RED BLOOD CELL COUNT(AUTO) 3.99 MIL/uL (4.5-6.0); WHITE BLOOD COUNT (AUTO) 9.7 K/uL (4.3-11.0)
[2019-08-14 06:16] LABS: CALCIUM, SERUM 9.2 mg/dL (8.5-10.1); CARBON DIOXIDE 26 mmol/L (21-32); CHLORIDE 105 mmol/L (98-107); CREATININE 1.8 mg/dL (0.6-1.3); GLUCOSE 118 mg/dL (74-106); POTASSIUM 4.1 mmol/L (3.5-5.1); SODIUM SERUM 140 mmol/L (136-145); UREA NITROGEN, BLOOD 15 mg/dL (7-18)
[2019-08-14] MEDS ORDERED: ONDANSETRON HCL/PF 4 MG/2 ML VIAL ONE (06:20)
[2019-08-14] MEDS ORDERED: MORPHINE SULFATE INJ 4 MG/ML DISP.SYRIN ONE (06:21)
[2019-08-14 06:22] LABS: ALANINE AMINOTRANSFERASE 30 U/L (12-78); ALBUMIN 2.9 g/dL (3.4-5.0); ALKALINE PHOSPHATASE 66 U/L (46-116); ASPARTATE AMINOTRANSFERASE 18 U/L (15-37); BILIRUBIN,DIRECT 0.2 mg/dL (0.0-0.2); BILIRUBIN,TOTAL 0.5 mg/dL (0.2-1.0); LIPASE 78 U/L (73-393); TOTAL PROTEIN, SERUM 7.6 g/dL (6.4-8.2)
[2019-08-14] MEDS ORDERED: MORPHINE SULFATE INJ 10 MG/ML DISP.SYRIN IV ONE (06:30)
[2019-08-14] MEDS ORDERED: ONDANSETRON HCL/PF - ER 4 MG/2 ML VIAL IV ONE (06:30)
[2019-08-14] MEDS ORDERED: IV NS 0.9% 250 ML IV ONE (07:00)
[2019-08-14] MEDS ORDERED: METOPROLOL TARTRATE 25 MG TABLET PO ONE (08:00)
[2019-08-14] MEDS ORDERED: IV NS 0.9% 250 ML BAG IV ONE (08:00)
[2019-08-14] MEDS ORDERED: TAMSULOSIN 0.4 MG CAP.SR.24H PO ONE (08:00)
[2019-08-14] MEDS ORDERED: TAMSULOSIN 0.4 MG CAP.SR.24H ONE (08:02)
[2019-08-14] MEDS ORDERED: METOPROLOL TARTRATE 25 MG TABLET ONE (08:02)
[2019-08-14 08:04] LABS: APPEARANCE,URINE Clear (CLEAR); BILIRUBIN,URINE Negative (NEGATIVE); BLOOD, URINE Moderate Ery/uL (NEGATIVE); COLOR,URINE Yellow (YELLOW); KETONES,URINE Negative (NEGATIVE); LEUKOCYTE ESTERASE ,URINE Trace (NEGATIVE); NITRITE, URINE Negative (NEGATIVE); PROTEIN,URINE Negative (NEGATIVE); UGLUCOSE Negative (NEGATIVE); UROBILINOGEN,URINE 0.2 EU/dL (0.2)
[2019-08-14 08:05] LABS: BACTERIA,URINE Rare /HPF (None Seen); SQUAMOUS EPITHELIAL CELL,UR Rare /HPF (None Seen)
--- NOTE | 2019-08-14 08:09 | NUR ---
CALLED - [facility] - [facility]
[2019-08-14] MEDS ORDERED: PRAV20TA4 PO (08:10)
[2019-08-14] MEDS ORDERED: TAMS-12 PO (08:10)
--- NOTE | 2019-08-14 08:39 | NUR ---
REPORT GIVEN TO CODY YBARRA. AWAITING TRANSFER TO FLOOR.
--- NOTE | 2019-08-14 08:46 | NUR ---
RECEIVED REPORT FROM TATE CROOK. CODY Hoang RN
[2019-08-14] MEDS: APIXABAN 5 MG TABLET PO SCH ×2 (09:00→17:22)
--- NOTE | 2019-08-14 09:21 | NUR ---
TRANSFERED TO FLOOR IN STABLE COND.
[2019-08-14 10:09] VITALS: BP 132/76
--- NOTE | 2019-08-14 10:14 | NUR ---
This is a 64 year old male patient of Doctor MD Floyd. Admission for nausea without vomiting, abdominal pain, and difficulty urinating for ten hours. Says he lives alone in an apartment and plans to return after discharge from hospital, but will need transportation. History unremarkable except colostomy and gastritis. Request for food and pain medication immediately for increasing pain. Says he usually takes 4 mg of morphine as in emergency room. Justin Hoang RN
--- NOTE | 2019-08-14 10:47 | NUR ---
Unable to take clear coccyx picture patient is combative/agitated. Justin Hoang RN
--- NOTE | 2019-08-14 10:48 | NUR ---
Patient order request for pain medication to Attending MD office phone. Justin Hoang RN
--- NOTE | 2019-08-14 11:08 | NUR ---
Dietary team notified patient requests to have tuna salad and turkey sandwich for lunch. Justin Hoang RN
--- NOTE | 2019-08-14 11:15 | NUR ---
Doctor Barrientos return call with regard to patient pain scale. If having severe pain may give 1mg of dilauded intravenous push every 3 hours for pain as needed. MD will round on patient. Justin Hoang RN
[2019-08-14] MEDS ORDERED: MAG HYDROX/AL HYDROX/SIMETH 30 ML UDC PO PRN (11:30)
[2019-08-14] MEDS ORDERED: HYDROMORPHONE INJ 0.5 MG/0.5 ML SYRINGE IV PRN (11:30)
[2019-08-14] MEDS ORDERED: Z GUARD REMEDY 2 OZ OINT TP PRN (11:30)
[2019-08-14] MEDS ORDERED: ACETAMINOPHEN 325 MG TABLET PO PRN (11:30)
[2019-08-14] MEDS ORDERED: MAGNESIUM HYDROXIDE 30 ML UDC PO PRN (11:30)
[2019-08-14] MEDS ORDERED: HYDROCODONE/APAP 5/325MG 1 EACH TABLET PO PRN (11:30)
[2019-08-14] MEDS ORDERED: ONDANSETRON HCL/PF 4 MG/2 ML VIAL IVP PRN (11:30)
[2019-08-14] MEDS ORDERED: ZOLPIDEM TARTRATE 5 MG TABLET PO PRN (11:30)
[2019-08-14] MEDS: HYDROMORPHONE 1 MG/1 ML DISP.SYRIN IV PRN ×3 (11:52→20:15)
--- NOTE | 2019-08-14 20:30 | NUR ---
MS/RN RECEIVED PATIENT IN BED AWAKE, ALERT, ORIENTED, WITH C/O ABDOMINAL PAIN 06/14 WAS MEDICATED WITH DILAUDID ORDERED, NO DISTRESS NOTED, WILL MONITOR.
--- NOTE | 2019-08-14 21:23 | NUR ---
Spoke with patient, he is alert, states he lives locally alone in an apartment. States he is ambulatory and independent with adl's. States he is efficient with his colostomy care. [facility] [phone] is the colostomy bag provider. States he does not need DME and homehealth. He plan to return home via taxi when discharge. Addendum: 08/14/19 at 2124 by ARIA LONG RN Amended: Links added.
[2019-08-14 22:00] VITALS: BP 154/71
[2019-08-15] MEDS: HYDROMORPHONE 1 MG/1 ML DISP.SYRIN IV PRN ×4 (00:04→12:24)
--- NOTE | 2019-08-15 02:48 | NUR ---
MS/RN ATTEMPTED TO INSERT F/C BUT PATIENT REFUSED, PRIMER SUPERVISOR SHYLA MADE AWARE AND GAVE EXPLANATION TO THE PATIENT RE: IMPORTANCE OF THE F/C BUT PATIENT STILL REFUSED. Addendum: 08/15/19 at 0252 by TYRONE DELGADILLO RN PLS. DISREGARD ABOVE DOCUMENTATION, ENTERED IN ERROR.
[2019-08-15 04:00] VITALS: BP 138/83
[2019-08-15 06:16] LABS: BASOPHILS # (AUTO) 0.1 /CMM (0.0-0.2); BASOPHILS % (AUTO) 1.7 % (0.0-2.0); EOSINOPHILS % (AUTO) 5.1 % (0.0-6.0); HEMATOCRIT 32 % (39-51); HEMOGLOBIN 10.5 g/dL (13.5-17.5); LYMPHOCYTES # (AUTO) 0.7 /CMM (0.8-4.8); LYMPHOCYTES % (AUTO) 9.8 % (20.0-44.0); MEAN CORPUSCULAR HGB CONC 33 g/dl (31.0-36.0); MEAN CORPUSCULAR VOLUME 92 fL (80-96); MONOCYTES # (AUTO) 0.4 /CMM (0.1-1.30); MONOCYTES % (AUTO) 5.2 % (2.0-12.0); NEUTROPHILS # (AUTO) 5.5 /CMM (1.8-8.9); NEUTROPHILS % (AUTO) 78.2 % (43.0-81.0); PLATELET COUNT (AUTO) 221 /CMM (150-450); RED BLOOD CELL COUNT(AUTO) 3.54 MIL/uL (4.5-6.0)
--- NOTE | 2019-08-15 06:25 | NUR ---
MS/RN PATIENT IS AWAKE AT THIS TIME, COMFORTABLE, NO C/O PAIN, NO DISTRESS NOTED, CALL LIGHT IN REACH, ALL NEEDS ATTENDED AT THIS TIME, WILL CONTINUE TO MONITOR.
[2019-08-15 06:38] LABS: CALCIUM, SERUM 8.4 mg/dL (8.5-10.1); CREATININE 1.6 mg/dL (0.6-1.3); MAGNESIUM 1.7 mg/dL (1.8-2.4); PHOSPHORUS 3.7 mg/dL (2.5-4.9); POTASSIUM 3.8 mmol/L (3.5-5.1)
--- NOTE | 2019-08-15 07:49 | NUR ---
RN OPENING NOTES RECEIVED PATIENT AWAKE AND ALERT, RESTING IN BED COMFORTABLY. HE IS AOX4, VERBAL, AND NONAMBULATORY. HE IS ON 2L OF O2 VIA NC, TOLERATING WELL, O2 SAT 96%. LUNG SOUNDS CLEAR ON UPPER [place]. PT HAS A COLOSTOMY ON LLQ, INTACT AND EXCRETING FECES. HE IS ON A CARDIAC DIET. HE HAS A R WRIST 20 G, PATENT AND INTACT. SAFETY MEASURES HAVE BEEN IMPLEMENTED, CALL LIGHT IS WITHIN REACH, BED IS IN LOWEST AND LOCKED POSITION, SIDE RAILS UP X2, WILL CONTINUE TO MONITOR FOR ANY CHANGES.
[2019-08-15 08:00] VITALS: BP 125/73
[2019-08-15] MEDS: APIXABAN 5 MG TABLET PO SCH (08:05)
[2019-08-15] MEDS ORDERED: HYDR-4384 PO (09:33)
[2019-08-15] MEDS ORDERED: MAGNESIUM OXIDE 400 MG TABLET PO ONE (11:00)
--- NOTE | 2019-08-15 14:20 | NUR ---
RN NOTES PT HAS BEEN DISCHARGED IN STABLE CONDITION. IV SITE WAS REMOVED, BELONGINGS LIST WAS CHECKED OFF, EXIT CARE INSTURCTIONS WERE PROVIDED. PT NEW PRESCRIPTION WAS GIVEN. NO ACUTE CHANGES OCCURRED. PT HAS GOOD UNDERSTANDING OF HEALTH
== END 2019-08-15 15:27 | disposition home or self-care (01) | DRG 683 ==
LOC: ER 05:14 → TELE1 08:46 → MEDSG1 08-15 10:04
PROVIDERS: ADMIT Student in an Organized Health Care Education/Training Program; ATTEND Student in an Organized Health Care Education/Training Program
DX: N17.0 Acute kidney failure with tubular necrosis (principal); E44.0 Moderate protein-calorie malnutrition; E87.1 Hypo-osmolality and hyponatremia; Z68.42 Body mass index [BMI] 45.0-49.9, adult; I48.20 Chronic atrial fibrillation, unspecified; M48.56XA Collapsed vertebra, not elsewhere classified, lumbar region, initial encounter for fracture; I13.0 Hypertensive heart and chronic kidney disease with heart failure and stage 1 through stage 4 chronic kidney disease, or unspecified chronic kidney disease; N13.0 Hydronephrosis with ureteropelvic junction obstruction; E83.42 Hypomagnesemia; N18.9 Chronic kidney disease, unspecified; Z93.3 Colostomy status; K52.9 Noninfective gastroenteritis and colitis, unspecified; D63.8 Anemia in other chronic diseases classified elsewhere; F51.04 Psychophysiologic insomnia; L73.9 Follicular disorder, unspecified; Z87.442 Personal history of urinary calculi; Z87.891 Personal history of nicotine dependence; E66.01 Morbid (severe) obesity due to excess calories; B95.2 Enterococcus as the cause of diseases classified elsewhere; E11.22 Type 2 diabetes mellitus with diabetic chronic kidney disease; G47.33 Obstructive sleep apnea (adult) (pediatric); E88.09 Other disorders of plasma-protein metabolism, not elsewhere classified; K76.0 Fatty (change of) liver, not elsewhere classified; Z79.01 Long term (current) use of anticoagulants; Z90.49 Acquired absence of other specified parts of digestive tract; N20.0 Calculus of kidney; I50.9 Heart failure, unspecified
CPT/HCPCS: 36415; 71045-TC; 80048-TC; 80061-TC; 80076-TC; 81000-TC; 83605-TC; 83690-TC; 83735-TC; 83880; 84100-TC; 84484-TC; 85025-TC; 85652-TC; 86140-TC; 87086-TC; G0378; J1170; J2270; J2405; J7050

== ENCOUNTER 2019-09-24 16:00 | Emergency (ER) | payer MEDICARE, MEDICAID ==
[~2019-09-24] VITALS: Ht 182.9 cm; Wt 144.7 kg
[~2019-09-24 16:00] MED LIST changes: -AMOX875T2 PO; +HYDR-4384 PO; +PRAV20TA4 PO; +TAMS-12 PO
--- NOTE | 2019-09-24 16:09 | NUR ---
BIB WILIAN C/O ABDOMINAL PAIN FOR 2 DAYS, KIDNEY STONE REMOVED 2 DAYS AGO, PT IS AAOX3, NOT IN RESPIRATORY DISTRESS, HOOKED TO MONITOR, KEPT RESTED AND COMFORTABLE, WILL CONTINUE TO MONITOR.
--- NOTE | 2019-09-24 16:28 | NUR ---
SEEN AND EXAMINED BY .
[2019-09-24] MEDS ORDERED: HYDROCODONE/APAP 5/325MG 1 EACH TABLET ONE (16:59)
[2019-09-24 17:24] LABS: BASOPHILS # (AUTO) 0.1 /CMM (0.0-0.2); BASOPHILS % (AUTO) 0.9 % (0.0-2.0); EOSINOPHILS % (AUTO) 1.6 % (0.0-6.0); HEMATOCRIT 41 % (39-51); LYMPHOCYTES # (AUTO) 1.1 /CMM (0.8-4.8); LYMPHOCYTES % (AUTO) 16.3 % (20.0-44.0); MEAN CORPUSCULAR HGB CONC 32 g/dl (31.0-36.0); MEAN CORPUSCULAR VOLUME 91 fL (80-96); MONOCYTES # (AUTO) 0.9 /CMM (0.1-1.30); MONOCYTES % (AUTO) 13.2 % (2.0-12.0); NEUTROPHILS # (AUTO) 4.4 /CMM (1.8-8.9); PLATELET COUNT (AUTO) 240 /CMM (150-450); RED BLOOD CELL COUNT(AUTO) 4.55 MIL/uL (4.5-6.0); WHITE BLOOD COUNT (AUTO) 6.5 K/uL (4.3-11.0)
[2019-09-24 17:26] LABS: CALCIUM, SERUM 9.5 mg/dL (8.5-10.1); CARBON DIOXIDE 23 mmol/L (21-32); CHLORIDE 104 mmol/L (98-107); CREATININE 1.2 mg/dL (0.6-1.3); GLUCOSE 111 mg/dL (74-106); POTASSIUM 4.1 mmol/L (3.5-5.1); SODIUM SERUM 140 mmol/L (136-145); UREA NITROGEN, BLOOD 14 mg/dL (7-18)
[2019-09-24] MEDS ORDERED: HYDROCODONE/APAP 5/325MG 1 EACH TABLET PO ONE (17:30)
[2019-09-24 17:31] LABS: ALANINE AMINOTRANSFERASE 27 U/L (12-78); ALBUMIN 3.3 g/dL (3.4-5.0); ALKALINE PHOSPHATASE 79 U/L (46-116); ASPARTATE AMINOTRANSFERASE 26 U/L (15-37); BILIRUBIN,TOTAL 0.2 mg/dL (0.2-1.0); LIPASE 89 U/L (73-393); TOTAL PROTEIN, SERUM 8.5 g/dL (6.4-8.2)
--- NOTE | 2019-09-24 17:51 | NUR ---
URINE SPECIMEN COLLECTED AND SENT TO LAB.
[2019-09-24 18:12] LABS: APPEARANCE,URINE Clear (CLEAR); BILIRUBIN,URINE Negative (NEGATIVE); BLOOD, URINE Negative Ery/uL (NEGATIVE); COLOR,URINE Yellow (YELLOW); KETONES,URINE Negative (NEGATIVE); LEUKOCYTE ESTERASE ,URINE Small (NEGATIVE); NITRITE, URINE Negative (NEGATIVE); PROTEIN,URINE Negative (NEGATIVE); UGLUCOSE Negative (NEGATIVE); UROBILINOGEN,URINE 0.2 EU/dL (0.2)
[2019-09-24 18:27] LABS: RBC,URINE 0-2 /HPF (0-2)
[2019-09-24 18:28] LABS: BACTERIA,URINE Rare /HPF (None Seen); SQUAMOUS EPITHELIAL CELL,UR Few /HPF (None Seen); URINE AMORPHOUS URATE Few /HPF (None Seen)
--- NOTE | 2019-09-24 18:58 | NUR ---
Patient discharged to home in stable condition. Written and verbal after care instructions given. Patient verbalizes understanding of instruction.
[2019-09-24 18:59] VITALS: BP 141/82
== END 2019-09-24 18:59 | disposition home or self-care (01) ==
LOC: ER 16:01
DX: K43.9 Ventral hernia without obstruction or gangrene (principal); N39.0 Urinary tract infection, site not specified; D63.1 Anemia in chronic kidney disease; I12.9 Hypertensive chronic kidney disease with stage 1 through stage 4 chronic kidney disease, or unspecified chronic kidney disease; N18.9 Chronic kidney disease, unspecified; I48.91 Unspecified atrial fibrillation; E78.5 Hyperlipidemia, unspecified; G62.9 Polyneuropathy, unspecified; Z98.890 Other specified postprocedural states; Z87.442 Personal history of urinary calculi; Z79.899 Other long term (current) drug therapy
CPT/HCPCS: 36415; 71045-TC; 80048-TC; 80076-TC; 81000-TC; 83690-TC; 83880; 84484-TC; 85025-TC; 87086-TC

== ENCOUNTER 2020-07-18 20:21 | Emergency (ER) | payer MEDICARE, MEDICAID ==
[~2020-07-18] VITALS: Ht 182.9 cm; Wt 136.1 kg
--- NOTE | 2020-07-18 21:00 | NUR ---
PT BIBRA FROM HOME C/O CHEST PAIN AND GENERALIZED ABDOMINAL PAIN X2 DAYS. PT ALSO C/O DECREASED APPETITE AND NAUSEA. PT AAOX4. RESPIRATIONS EVEN AND UNLABORED. SKIN WARM AND INTACT. VITAL SIGNS STABLE. NO ACUTE DISTRESS NOTED AT THIS TIME. PLACED ON MONITOR, WILL CONTINUE TO MONITOR
[2020-07-18] MEDS ORDERED: MORPHINE SULFATE INJ 4 MG/ML DISP.SYRIN ONE (21:12)
[2020-07-18] MEDS ORDERED: ONDANSETRON HCL/PF 4 MG/2 ML VIAL ONE (21:12)
--- NOTE | 2020-07-18 21:25 | NUR ---
IV INITIATED RAC 18G. LABS DRAWN FROM SITE. FERMENTING CELLARS RECEIVER AT BEDSIDE FOR COLLECTION. IV INTACT AND PATENT, PLACED ON SALINE LOCK
[2020-07-18 21:29] LABS: BASOPHILS # (AUTO) 0.1 /CMM (0.0-0.2); BASOPHILS % (AUTO) 0.9 % (0.0-2.0); EOSINOPHILS % (AUTO) 3.3 % (0.0-6.0); HEMATOCRIT 38 % (39-51); HEMOGLOBIN 12.1 g/dL (13.5-17.5); LYMPHOCYTES # (AUTO) 0.9 /CMM (0.8-4.8); LYMPHOCYTES % (AUTO) 16.4 % (20.0-44.0); MEAN CORPUSCULAR HGB CONC 32 g/dl (31.0-36.0); MEAN CORPUSCULAR VOLUME 98 fL (80-96); MONOCYTES # (AUTO) 0.6 /CMM (0.1-1.30); MONOCYTES % (AUTO) 11.1 % (2.0-12.0); NEUTROPHILS # (AUTO) 3.9 /CMM (1.8-8.9); NEUTROPHILS % (AUTO) 68.3 % (43.0-81.0); PLATELET COUNT (AUTO) 225 /CMM (150-450); RED BLOOD CELL COUNT(AUTO) 3.84 MIL/uL (4.5-6.0); WHITE BLOOD COUNT (AUTO) 5.7 K/uL (4.3-11.0)
[2020-07-18] MEDS ORDERED: ONDANSETRON HCL/PF 4 MG/2 ML VIAL IVP ONE (21:30)
[2020-07-18] MEDS ORDERED: IV NS 0.9% 1,000 ML BAG IV ONE (21:30)
[2020-07-18] MEDS ORDERED: MORPHINE SULFATE INJ 2 MG/ML DISP.SYRIN IV ONE (21:30)
--- NOTE | 2020-07-18 21:31 | NUR ---
RADIOLOGY AT BEDSIDE FOR CXR
--- NOTE | 2020-07-18 21:47 | NUR ---
URINE COLLECTED AND SENT TO LAB
--- NOTE | 2020-07-18 21:48 | NUR ---
BROUGHT BY RADIOLOGY TO CT
[2020-07-18 21:52] LABS: APPEARANCE,URINE Clear (CLEAR); BILIRUBIN,URINE Negative (NEGATIVE); BLOOD, URINE Negative Ery/uL (NEGATIVE); COLOR,URINE Yellow (YELLOW); KETONES,URINE Trace (NEGATIVE); LEUKOCYTE ESTERASE ,URINE Trace (NEGATIVE); NITRITE, URINE Negative (NEGATIVE); PROTEIN,URINE 30 mg/dl (NEGATIVE); UGLUCOSE Negative (NEGATIVE); UROBILINOGEN,URINE 0.2 EU/dL (0.2)
[2020-07-18 21:55] LABS: CALCIUM, SERUM 8.5 mg/dL (8.5-10.1); CREATININE 1.8 mg/dL (0.6-1.3); POTASSIUM 3.8 mmol/L (3.5-5.1)
[2020-07-18 22:04] LABS: ALBUMIN 2.6 g/dL (3.4-5.0); BILIRUBIN,DIRECT 0.1 mg/dL (0.0-0.2); BILIRUBIN,TOTAL 0.1 mg/dL (0.2-1.0); TOTAL PROTEIN, SERUM 6.6 g/dL (6.4-8.2)
[2020-07-18 22:11] LABS: RBC,URINE 0-2 /HPF (0-2)
[2020-07-18 22:12] LABS: BACTERIA,URINE Few /HPF (None Seen); HYALINE CASTS, URINE Few /LPF (None Seen); MUCUS,URINE Few /LPF (None Seen); SQUAMOUS EPITHELIAL CELL,UR Few /HPF (None Seen); URINE AMORPHOUS URATE Few /HPF (None Seen)
[2020-07-18] MEDS ORDERED: KETOROLAC TROMETHAMINE INJ 30 MG/ML VIAL ONE (22:49)
[2020-07-18] MEDS ORDERED: KETOROLAC TROMETHAMINE INJ 30 MG/ML VIAL IV ONE (23:00)
[2020-07-18 23:11] VITALS: BP 128/72
--- NOTE | 2020-07-18 23:11 | NUR ---
IV removed. Catheter intact and site benign. Pressure and 4x4 applied to site. No bleeding noted.
--- NOTE | 2020-07-18 23:11 | NUR ---
Patient discharged to home in stable condition. Written and verbal after care instructions given. Patient verbalizes understanding of instruction and RX. Pt ambulated with steady gait. Denies pain.
== END 2020-07-18 23:11 | disposition home or self-care (01) ==
LOC: ER 20:22
DX: R10.84 Generalized abdominal pain (principal); R07.89 Other chest pain; R60.0 Localized edema; R06.02 Shortness of breath; R11.0 Nausea; I48.91 Unspecified atrial fibrillation; E78.5 Hyperlipidemia, unspecified; G62.9 Polyneuropathy, unspecified; I12.9 Hypertensive chronic kidney disease with stage 1 through stage 4 chronic kidney disease, or unspecified chronic kidney disease; N18.9 Chronic kidney disease, unspecified; Z98.890 Other specified postprocedural states; Z79.899 Other long term (current) drug therapy
CPT/HCPCS: 36415; 71045; 74176; 80048; 80076; 81001; 83690; 85025; 87086; 93005; 96361; 96374; 96375; 99285; J1885; J2270; J2405; J7030; 81000-TC

== ENCOUNTER 2020-08-17 19:57 | Inpatient (IN) | payer MEDICARE, OTHER ==
[~2020-08-17] VITALS: Ht 182.9 cm; Wt 140.6 kg
--- NOTE | 2020-08-17 20:00 | NUR ---
BIBRA39 FOR C/O MID STERNAL CP AND UPPER ABD PAIN X 2 DAYS. +N/V, +SOB, +DIZZINESS ; PT TO BED 3, AAOX4, -SOB, GOWNED, VSS. NAD NOTED. PENDING ER PROVIDER ANTHONY
--- NOTE | 2020-08-17 20:30 | NUR ---
PIV STARTED, BLOOD DRAWN, SENT TO LAB
--- NOTE | 2020-08-17 20:41 | NUR ---
URINE COLLECTED, SENT TO LAB
[2020-08-17] MEDS ORDERED: ONDANSETRON HCL/PF 4 MG/2 ML VIAL ONE (20:52)
[2020-08-17] MEDS ORDERED: MORPHINE SULFATE INJ 4 MG/ML DISP.SYRIN ONE (20:52)
[2020-08-17] MEDS ORDERED: IV NS 0.9% 1,000 ML BAG IV ONE (21:00)
[2020-08-17] MEDS ORDERED: ONDANSETRON HCL/PF 4 MG/2 ML VIAL IVP ONE (21:00)
[2020-08-17] MEDS ORDERED: MORPHINE SULFATE INJ 2 MG/ML DISP.SYRIN IV ONE (21:00)
[2020-08-17 21:13] LABS: BASOPHILS # (AUTO) 0.1 /CMM (0.0-0.2); EOSINOPHILS % (AUTO) 3.4 % (0.0-6.0); HEMATOCRIT 41 % (39-51); HEMOGLOBIN 13.1 g/dL (13.5-17.5); LYMPHOCYTES # (AUTO) 1.1 /CMM (0.8-4.8); LYMPHOCYTES % (AUTO) 13.6 % (20.0-44.0); MEAN CORPUSCULAR HGB CONC 32 g/dl (31.0-36.0); MEAN CORPUSCULAR VOLUME 98 fL (80-96); MONOCYTES % (AUTO) 12.5 % (2.0-12.0); NEUTROPHILS # (AUTO) 5.7 /CMM (1.8-8.9); NEUTROPHILS % (AUTO) 69.5 % (43.0-81.0); PLATELET COUNT (AUTO) 241 /CMM (150-450); RED BLOOD CELL COUNT(AUTO) 4.12 MIL/uL (4.5-6.0); WHITE BLOOD COUNT (AUTO) 8.3 K/uL (4.3-11.0)
[2020-08-17 21:50] LABS: ALANINE AMINOTRANSFERASE 40 U/L (12-78); ALBUMIN 3.3 g/dL (3.4-5.0); ALKALINE PHOSPHATASE 73 U/L (46-116); ASPARTATE AMINOTRANSFERASE 34 U/L (15-37); B-TYPE NATRIURETIC PEPTIDE 1546 PG/ML (0-125); BILIRUBIN,DIRECT 0.1 mg/dL (0.0-0.2); BILIRUBIN,TOTAL 0.4 mg/dL (0.2-1.0); TOTAL PROTEIN, SERUM 7.6 g/dL (6.4-8.2)
[2020-08-17 22:18] LABS: POTASSIUM 4.2 mmol/L (3.5-5.1)
[2020-08-17 22:19] LABS: CALCIUM, SERUM 8.8 mg/dL (8.5-10.1)
[2020-08-17 22:20] LABS: CREATININE 1.1 mg/dL (0.6-1.3)
[2020-08-17] MEDS ORDERED: IV NS 0.9% 250 ML IV ONE (22:30)
[2020-08-17] MEDS ORDERED: IOHEXOL-350 100 ML VIAL IV ONE (22:30)
--- NOTE | 2020-08-17 23:30 | NUR ---
PT BACK FROM CT
--- NOTE | 2020-08-18 00:08 | NUR ---
REPORT GIVEN TO CHARGE NURSE ANITRA RN FOR RAJINDER; PT WILL BE TRANSPORTED TO 3RD FLOOR
[2020-08-18] MEDS ORDERED: Z GUARD REMEDY 2 OZ OINT TP PRN (01:00)
[2020-08-18] MEDS ORDERED: ONDANSETRON HCL/PF 4 MG/2 ML VIAL IVP PRN (01:00)
[2020-08-18] MEDS ORDERED: ZOLPIDEM TARTRATE 5 MG TABLET PO PRN (01:00)
[2020-08-18] MEDS ORDERED: BUMETANIDE INJ 6 MG in IV NS 0.9% 36 ML IV ONE (01:00)
[2020-08-18] MEDS ORDERED: ACETAMINOPHEN 325 MG TABLET PO PRN (01:00)
--- NOTE | 2020-08-18 01:00 | NUR ---
ADMISSION NOTE PT ADMITTED TO RM 307-2 UNDER TELEPHONE BETTING CLERK LACIE FOR CP AND 2ND CHF. NEW ORDERS RECIEVED. PT AMBULATORY ON RA PLACED IN BED ORIENTED TO ROOM. GIVEN CALL LIGHT VERBALIZED UNDERSTANDING TO CALL FOR ASSISTANCE IF NEEDED. PT CAME TO ER AFTER HAVING CP AND UPPER ABD PAIN FOR 2 DAYS WITH N/V SOB AND DIZZINESSS. PT DENIES DIZZINESS, DENIES N/V AND REPORTS ABD/CP MID STERNAL RATED 7/10. ADMISSION ASSESSMENT TO BE PERFORMED. PT GIVEN 2 SANDWICHES PER HIS REQUEST WITH JUICE. PT ON RA DENIES SOB. WILL CONT TO MONITOR. TELE APPLIED PT AFIB CONTROLLED.
--- NOTE | 2020-08-18 01:05 | NUR ---
pt transported to 3rd floor
[2020-08-18] MEDS ORDERED: ALBUTEROL FS 2.5 MG/3 ML VIAL.NEB NEB PRN (01:30)
[2020-08-18 01:36] VITALS: BP 158/96
[2020-08-18] MEDS: HYDROCODONE/APAP 5/325MG TABLET PO PRN ×3 (01:54→17:07)
[2020-08-18] MEDS ORDERED: BUMETANIDE INJ 0.25 MG/ML VIAL ONE ×2 (02:04→02:05)
[2020-08-18 03:18] LABS: BASOPHILS # (AUTO) 0.1 /CMM (0.0-0.2); BASOPHILS % (AUTO) 0.8 % (0.0-2.0); EOSINOPHILS % (AUTO) 3.3 % (0.0-6.0); HEMATOCRIT 39 % (39-51); HEMOGLOBIN 12.7 g/dL (13.5-17.5); LYMPHOCYTES # (AUTO) 1.2 /CMM (0.8-4.8); LYMPHOCYTES % (AUTO) 13.9 % (20.0-44.0); MEAN CORPUSCULAR HGB CONC 33 g/dl (31.0-36.0); MEAN CORPUSCULAR VOLUME 97 fL (80-96); MONOCYTES # (AUTO) 0.8 /CMM (0.1-1.30); MONOCYTES % (AUTO) 9.4 % (2.0-12.0); NEUTROPHILS # (AUTO) 6.3 /CMM (1.8-8.9); NEUTROPHILS % (AUTO) 72.6 % (43.0-81.0); PLATELET COUNT (AUTO) 207 /CMM (150-450); RED BLOOD CELL COUNT(AUTO) 3.99 MIL/uL (4.5-6.0); WHITE BLOOD COUNT (AUTO) 8.6 K/uL (4.3-11.0)
[2020-08-18 03:33] LABS: CALCIUM, SERUM 8.9 mg/dL (8.5-10.1); CREATININE 1.2 mg/dL (0.6-1.3); MAGNESIUM 1.9 mg/dL (1.8-2.4); PHOSPHORUS 2.8 mg/dL (2.5-4.9); POTASSIUM 3.6 mmol/L (3.5-5.1)
--- NOTE | 2020-08-18 07:34 | NUR ---
INDUSTRIAL RECRUITER OPENING NOTES BEDSIDE ENDORSEMENT DONE. PATIENT IS IN BED RESTING, RESPONSIVE TO VERBAL AND TACTILE SENSATIONS, A/O X4. BREATHING EVEN AND UNLABORED, TOLERATING ROOM AIR, NOT IN ACUTE DISTRESS. ON TELE MONITORING, CONTROLLED A-FIB W/ HR AT 84, NO CARDIAC DISTRESS NOTED. IV ON LAC #22 INTACT AND PATENT. COLOSTOMY PRESENT AND INTACT. SAFETY PRECAUTIONS IN PLACE: BED LOCKED AND ON LOWEST POSITION, SR UP X2, CALL LIGHT W/IN REACH. WILL CONTINUE TO MONITOR.
--- NOTE | 2020-08-18 07:53 | NUR ---
RN NOTES PATIENT WAS SEEN BY DR. UGALDE W/ ORDERS NOTED: OK TO TRANSFER TO MED SURG, D/C TELE. WILL CONTINUE TO MONITOR.
[2020-08-18] MEDS ORDERED: PRAVASTATIN SODIUM 20 MG TABLET PO SCH (09:00)
[2020-08-18] MEDS: TAMSULOSIN 0.4 MG CAP.SR.24H PO SCH (09:04)
[2020-08-18] MEDS: PREGABALIN 25 MG CAPSULE PO SCH (09:04)
[2020-08-18] MEDS: ATORVASTATIN 10 MG TABLET PO SCH (09:05)
[2020-08-18] MEDS: APIXABAN 5 MG TABLET PO SCH ×2 (09:05→21:14)
[2020-08-18] MEDS: METOPROLOL TARTRATE 25 MG TABLET PO SCH ×2 (09:06→17:07)
[2020-08-18 09:52] VITALS: BP 136/89
--- NOTE | 2020-08-18 12:15 | NUR ---
RN NOTES PATIENT WAS SEEN BY DR. CORTEZ, INFORMED ABOUT COMPLAINT OF PAIN W/ ORDER NOTED.
[2020-08-18] MEDS: KETOROLAC TROMETHAMINE INJ 30 MG/ML VIAL IV PRN (13:11)
[2020-08-18 15:59] VITALS: BP 115/63
--- NOTE | 2020-08-18 18:44 | NUR ---
MS RN CLOSING NOTES PATIENT IS IN BED, AWAKE AND VERBALLY RESPONSIVE. A/O X4, ABLE TO MAKE NEEDS KNOWN. BREATHING EVEN AND UNLABORED, TOLERATING ROOM AIR, NOT IN ACUTE DISTRESS. SCD'S IN PLACE. IV ON LAC #22 INTACT AND PATENT. COLOSTOMY IS INTACT AND PATENT; COLOSTOMY CARE PROVIDED. DUE MEDS GIVEN TO PATIENT. SAFETY PRECAUTIONS MAINTAINED: BED LOCKED AND ON LOWEST POSITION, SR UP X2, CALL LIGHT W/IN REACH. WILL ENDORSE TO INTERACTIVE PROJECT MANAGER RN FOR RAJINDER.
[2020-08-18 19:00] VITALS: BP 101/59
--- NOTE | 2020-08-18 19:15 | NUR ---
MS RN NOTES RECEIVED ON BED WATCHING TV PROGRAM,ALERT,ORIENTED X4,BREATHING REGULAR,NOT IN ANY FORM OF DISTRESS.SALINE LOCK LEFT AC INTACT AND PATENT,.WITH RIGHT ABDOMEN COLOSTOMY BAG DRAINING BROWNISH LIQUID STOOL.WITH DVT PUMP IN USED AND ON ELIQUIS PO FOR DVT SCORE OF 5.AMBULATES TO THE BATHROOM.CALL LIGHT IN REACH,NEEDS ANTICIPATED.
[2020-08-18 20:00] VITALS: BP 108/59
[2020-08-19] MEDS: KETOROLAC TROMETHAMINE INJ 30 MG/ML VIAL IV PRN ×2 (01:06→09:33)
--- NOTE | 2020-08-19 01:06 | NUR ---
MS RN NOTES PAIN MANAGEMENT AWAKE,C/O ABDOMINAL PAIN 8/10 ON PAIN SCALE.MEDICATED WITH TORADOL 30MG IV ORDERED AND PER PATIENT REQUEST.
[2020-08-19 06:21] LABS: BASOPHILS # (AUTO) 0.1 /CMM (0.0-0.2); BASOPHILS % (AUTO) 0.8 % (0.0-2.0); EOSINOPHILS % (AUTO) 6.7 % (0.0-6.0); HEMATOCRIT 45 % (39-51); HEMOGLOBIN 14.7 g/dL (13.5-17.5); LYMPHOCYTES # (AUTO) 1.1 /CMM (0.8-4.8); LYMPHOCYTES % (AUTO) 12.8 % (20.0-44.0); MEAN CORPUSCULAR HGB CONC 33 g/dl (31.0-36.0); MEAN CORPUSCULAR VOLUME 97 fL (80-96); MONOCYTES # (AUTO) 0.9 /CMM (0.1-1.30); MONOCYTES % (AUTO) 10.7 % (2.0-12.0); NEUTROPHILS # (AUTO) 5.9 /CMM (1.8-8.9); PLATELET COUNT (AUTO) 218 /CMM (150-450); RED BLOOD CELL COUNT(AUTO) 4.59 MIL/uL (4.5-6.0); WHITE BLOOD COUNT (AUTO) 8.6 K/uL (4.3-11.0)
[2020-08-19 06:38] LABS: CREATININE 1.7 mg/dL (0.6-1.3); MAGNESIUM 1.8 mg/dL (1.8-2.4); PHOSPHORUS 4.4 mg/dL (2.5-4.9); POTASSIUM 3.8 mmol/L (3.5-5.1)
--- NOTE | 2020-08-19 06:41 | NUR ---
MS RN NOTES FAIRLY RESTED AT NIGHT,PAIN MANAGEMENT EFFECTIVE ,SALINE LOCK REMAINS PATENT.CALL LIGHT IN REACH,NEEDS ATTENDED.
--- NOTE | 2020-08-19 07:25 | NUR ---
Patient is sitting in bed , eating breakfast. Breathing unlabored and even on room air. Patient denies chest pain, headache and any discomfort at this time. Safety precautions implemented and call light within reach. Will continue to monitor
[2020-08-19 08:00] VITALS: BP 151/84
[2020-08-19] MEDS: APIXABAN 5 MG TABLET PO SCH (08:27)
[2020-08-19] MEDS: TAMSULOSIN 0.4 MG CAP.SR.24H PO SCH (08:27)
[2020-08-19 08:28] VITALS: BP 151/84
[2020-08-19] MEDS: ATORVASTATIN 10 MG TABLET PO SCH (08:28)
[2020-08-19] MEDS: METOPROLOL TARTRATE 25 MG TABLET PO SCH (08:28)
[2020-08-19] MEDS: PREGABALIN 25 MG CAPSULE PO SCH (08:28)
--- NOTE | 2020-08-19 13:55 | NUR ---
Patient cleared for d/c to home by . Patient awake alert and oriented x4. Breathing unlabored and even on room air, VS are stable and within baseline, afebrile. Patient denies chest pain , abdominal pain or any other discomfort. Patient has no skin issues. Patient is ambulatory with steady gait.Colostomy bag changed prior discharge. D/C instructions provided to patient and he verbalized understanding. Patient will f/u with pain management doctor outpatient. All needs attended prior d/c. IV line removed a nd ID wrist band removed. Patient sighed d/c instructions and valuable form ; and all belongings with the patient. Patient called a taxi. Patient safely transferred to [facility] and left the hospital via taxi.
--- NOTE | 2020-08-19 15:37 | NUR ---
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 Test result came back after patient was discharged. We unable to reach the patient , he has no cell phone. Call made to patient's PCP office. Test result sent to fax number [phone], which is dr. Rosa Maria Puente PA office fax number.
== END 2020-08-19 13:45 | disposition home or self-care (01) | DRG 303 ==
LOC: ER 19:59 → TELE 23:54 → MED 08-18 08:31
PROVIDERS: ADMIT Student in an Organized Health Care Education/Training Program; ATTEND Student in an Organized Health Care Education/Training Program
DX: I25.10 Atherosclerotic heart disease of native coronary artery without angina pectoris (principal); I48.20 Chronic atrial fibrillation, unspecified; E44.0 Moderate protein-calorie malnutrition; Z68.41 Body mass index [BMI] 40.0-44.9, adult; D68.69 Other thrombophilia; I10 Essential (primary) hypertension; Z79.01 Long term (current) use of anticoagulants; E78.5 Hyperlipidemia, unspecified; E87.6 Hypokalemia; E66.9 Obesity, unspecified; Z93.3 Colostomy status; E88.09 Other disorders of plasma-protein metabolism, not elsewhere classified; E66.01 Morbid (severe) obesity due to excess calories; N18.9 Chronic kidney disease, unspecified; I13.10 Hypertensive heart and chronic kidney disease without heart failure, with stage 1 through stage 4 chronic kidney disease, or unspecified chronic kidney disease
CPT/HCPCS: 36415; 71045-TC; 80048-TC; 80061-TC; 80076-TC; 83690-TC; 83735-TC; 83880; 84100-TC; 84484-TC; 85025-TC; 85378-TC; 87081-TC; 93970-TC; C9803-CS; G0378; J1885; J2270; J2405; J3490; J7030; J7050; Q9967

== ENCOUNTER 2020-10-12 19:20 | Emergency (ER) | payer MEDICARE, OTHER ==
[~2020-10-12] VITALS: Ht 182.9 cm; Wt 136.1 kg
--- NOTE | 2020-10-12 19:28 | NUR ---
BIBRA88 FROM HOME C/O MIDSTERNAL CHEST PAIN X1.5 DAY. ALSO C/O NEAR SYNCOPE TODAY.+DIZZINESS,-HEAD INJURY.REC'D 324MG ASP,2 SPRAY NITRO EN ROUTE.BS 121; pt aaox4,-sob, not in acute distress, -sob, vss, pending md woods
[2020-10-12] MEDS ORDERED: ONDANSETRON HCL/PF 4 MG/2 ML VIAL IVP ONE (20:00)
[2020-10-12] MEDS ORDERED: IV NS 0.9% 1,000 ML BAG IV ONE (20:00)
[2020-10-12] MEDS ORDERED: MORPHINE SULFATE INJ 2 MG/ML DISP.SYRIN IV ONE (20:00)
[2020-10-12 20:10] LABS: BASOPHILS % (AUTO) 0.5 % (0.0-2.0); EOSINOPHILS % (AUTO) 5.4 % (0.0-6.0); HEMATOCRIT 42 % (39-51); HEMOGLOBIN 13.3 g/dL (13.5-17.5); LYMPHOCYTES # (AUTO) 1.1 /CMM (0.8-4.8); LYMPHOCYTES % (AUTO) 19.3 % (20.0-44.0); MEAN CORPUSCULAR HGB CONC 32 g/dl (31.0-36.0); MEAN CORPUSCULAR VOLUME 99 fL (80-96); MONOCYTES # (AUTO) 0.9 /CMM (0.1-1.30); MONOCYTES % (AUTO) 15.4 % (2.0-12.0); NEUTROPHILS # (AUTO) 3.4 /CMM (1.8-8.9); NEUTROPHILS % (AUTO) 59.4 % (43.0-81.0); PLATELET COUNT (AUTO) 187 /CMM (150-450); RED BLOOD CELL COUNT(AUTO) 4.28 MIL/uL (4.5-6.0); WHITE BLOOD COUNT (AUTO) 5.7 K/uL (4.3-11.0)
[2020-10-12] MEDS ORDERED: MORPHINE SULFATE INJ 4 MG/ML DISP.SYRIN ONE (20:16)
[2020-10-12] MEDS ORDERED: ONDANSETRON HCL/PF 4 MG/2 ML VIAL ONE (20:16)
[2020-10-12 20:29] LABS: ALANINE AMINOTRANSFERASE 40 U/L (12-78); ALBUMIN 2.9 g/dL (3.4-5.0); ALKALINE PHOSPHATASE 77 U/L (46-116); ASPARTATE AMINOTRANSFERASE 43 U/L (15-37); BILIRUBIN,DIRECT 0.1 mg/dL (0.0-0.2); BILIRUBIN,TOTAL 0.3 mg/dL (0.2-1.0); CALCIUM, SERUM 8.9 mg/dL (8.5-10.1); CARBON DIOXIDE 26 mmol/L (21-32); CHLORIDE 107 mmol/L (98-107); CREATININE 1.3 mg/dL (0.6-1.3); GLUCOSE 144 mg/dL (74-106); POTASSIUM 3.8 mmol/L (3.5-5.1); SODIUM SERUM 140 mmol/L (136-145); TOTAL PROTEIN, SERUM 7.1 g/dL (6.4-8.2); UREA NITROGEN, BLOOD 21 mg/dL (7-18)
--- NOTE | 2020-10-12 21:28 | NUR ---
Patient discharged to home in stable condition. Written and verbal after care instructions given. Patient verbalizes understanding of instruction. IV removed. Catheter intact and site benign. Pressure and 4x4 applied to site. No bleeding noted.
[2020-10-12 21:31] VITALS: BP 121/75
[2020-10-12 22:08] LABS: EOSINOPHILS % (MANUAL) 3 % (0-4); LYMPHOCYTES % (MANUAL) 22 % (16-48); MONOCYTES % (MANUAL) 11 % (0-11.0); NEUTROPHILS % (MANUAL) 64 (42-76)
== END 2020-10-12 21:31 | disposition home or self-care (01) ==
LOC: ER 19:29
DX: R07.89 Other chest pain (principal); R42 Dizziness and giddiness; R10.30 Lower abdominal pain, unspecified; I48.91 Unspecified atrial fibrillation; I10 Essential (primary) hypertension; G62.9 Polyneuropathy, unspecified; Z90.49 Acquired absence of other specified parts of digestive tract; Z93.3 Colostomy status; Z79.899 Other long term (current) drug therapy
CPT/HCPCS: 36415; 71045; 80048; 80076; 84484; 85007; 85025; 93005; 96361; 96374; 96375; 99285; J2270; J2405; J7030

== ENCOUNTER 2021-01-01 20:17 | Inpatient (IN) | payer MEDICARE, OTHER ==
[~2021-01-01] VITALS: Ht 182.9 cm; Wt 148.8 kg
--- NOTE | 2021-01-01 20:20 | NUR ---
PATIENT CAME TO THE ER BED 2 BIBRA FROM HOME C/O MIDSTERNAL CHEST PAIN W/ DIZZINESS FOR 2x HOURS. PATIENT RECEIVED NITRO SPRAY AND ASPIRIN EN ROUTE IN THE AMBULANCE RIG. PATIENT IS AAOX4. NO SOB. BREATHING EVENLY AND UNLABORED ON ROOM AIR. CONNECTED TO THE YEAST CULTURE DEVELOPER.
--- NOTE | 2021-01-01 20:28 | NUR ---
TECH AT BEDSIDE FOR EKG
[2021-01-01 20:30] LABS: BASOPHILS # (AUTO) 0.2 /CMM (0.0-0.2); BASOPHILS % (AUTO) 3.3 % (0.0-2.0); EOSINOPHILS % (AUTO) 5.2 % (0.0-6.0); HEMATOCRIT 39 % (39-51); HEMOGLOBIN 12.9 g/dL (13.5-17.5); LYMPHOCYTES # (AUTO) 0.5 /CMM (0.8-4.8); LYMPHOCYTES % (AUTO) 7.5 % (20.0-44.0); MEAN CORPUSCULAR HGB CONC 33 g/dl (31.0-36.0); MEAN CORPUSCULAR VOLUME 93 fL (80-96); MONOCYTES # (AUTO) 0.9 /CMM (0.1-1.30); MONOCYTES % (AUTO) 11.9 % (2.0-12.0); NEUTROPHILS # (AUTO) 5.2 /CMM (1.8-8.9); NEUTROPHILS % (AUTO) 72.1 % (43.0-81.0); PLATELET COUNT (AUTO) 223 /CMM (150-450); RED BLOOD CELL COUNT(AUTO) 4.18 MIL/uL (4.5-6.0); WHITE BLOOD COUNT (AUTO) 7.2 K/uL (4.3-11.0)
--- NOTE | 2021-01-01 20:55 | NUR ---
ADMISSION PACKET GIVEN TO ADMITTING
[2021-01-01] MEDS ORDERED: ONDANSETRON HCL/PF 4 MG/2 ML VIAL ONE (20:56)
[2021-01-01] MEDS ORDERED: MORPHINE SULFATE INJ 4 MG/ML DISP.SYRIN ONE (20:57)
[2021-01-01 21:00] LABS: ALANINE AMINOTRANSFERASE 26 U/L (12-78); ALKALINE PHOSPHATASE 69 U/L (46-116); ASPARTATE AMINOTRANSFERASE 19 U/L (15-37); B-TYPE NATRIURETIC PEPTIDE 1076 PG/ML (0-125); BILIRUBIN,DIRECT 0.1 mg/dL (0.0-0.2); BILIRUBIN,TOTAL 0.3 mg/dL (0.2-1.0); CALCIUM, SERUM 8.9 mg/dL (8.5-10.1); CARBON DIOXIDE 33 mmol/L (21-32); CHLORIDE 106 mmol/L (98-107); CREATININE 1.5 mg/dL (0.6-1.3); GLUCOSE 113 mg/dL (74-106); POTASSIUM 3.8 mmol/L (3.5-5.1); SODIUM SERUM 145 mmol/L (136-145); UREA NITROGEN, BLOOD 17 mg/dL (7-18)
[2021-01-01] MEDS ORDERED: ONDANSETRON HCL/PF 4 MG/2 ML VIAL IV ONE (21:00)
[2021-01-01] MEDS ORDERED: MORPHINE SULFATE INJ 2 MG/ML DISP.SYRIN IV ONE (21:00)
--- NOTE | 2021-01-01 21:13 | NUR ---
[facility] PAGED FOR PANEL ADMISSION.
--- NOTE | 2021-01-01 21:22 | NUR ---
ON PHONE WITH ISAIAH
--- NOTE | 2021-01-01 21:26 | NUR ---
COVID NEGATIVE PER LAB
--- NOTE | 2021-01-01 21:28 | NUR ---
CALLED RN SUP FOR TELE BED.
--- NOTE | 2021-01-01 21:44 | NUR ---
PT ASSIGNED TO [facility] [phone]
--- NOTE | 2021-01-01 21:46 | NUR ---
PATIENT AMBULATED TO THE RESTROOM WITH STEADY GAIT
--- NOTE | 2021-01-01 21:52 | NUR ---
TRIED TO CALL FOR REPORT, STAFF STATES THAT NURSE WILL CALL BACK FOR REPORT.
[2021-01-01] MEDS ORDERED: ONDANSETRON HCL/PF 4 MG/2 ML VIAL IVP PRN (22:00)
[2021-01-01] MEDS ORDERED: MAG HYDROX/AL HYDROX/SIMETH 30 ML UDC PO PRN (22:00)
[2021-01-01] MEDS ORDERED: NITROGLYCERIN 0.4 MG/TAB BOTTLE SL PRN (22:00)
[2021-01-01] MEDS ORDERED: ZOLPIDEM TARTRATE 5 MG TABLET PO PRN (22:00)
[2021-01-01] MEDS ORDERED: DOCUSATE SODIUM 100 MG CAPSULE PO PRN (22:00)
[2021-01-01] MEDS ORDERED: ACETAMINOPHEN 325 MG TABLET PO PRN (22:00)
--- NOTE | 2021-01-01 22:01 | NUR ---
REPORT GIVEN TO JACQUELINE YBARRA FOR RAJINDER.
--- NOTE | 2021-01-01 22:13 | NUR ---
PATIENT TAKEN UP TO ASSIGNED ROOM FOR RAJINDER.
[2021-01-01 22:15] VITALS: BP 135/89
--- NOTE | 2021-01-01 22:15 | NUR ---
PARANORMAL INVESTIGATOR ADMITTING NOTES RECEIVED ENDORSEMENT REPORT FROM JACQUELINE YBARRA. PATIENT ADMITTED TO TELEMETRY. PATIENT A/OX4; ABLE TO MAKE NEEDS KNOWN. ON ROOM AIR; TOLERATING WELL WITH NO SOB. EXTERNAL FOOD SERVICE READS AFIB AND HR AT 61; MD AWARE. PATIENT C/O CHEST PAIN AND WILL ADMINISTER PAIN MEDICATION ORDERED. COLOSTOMY INTACT; NOTED WITH YELLOW COLORED BM; NO SKIN BREAKDOWN. IV #20G TO LAC; PATENT AND INTACT. OVERALL SKIN INTACT. SAFETY MEASURES IN PLACE; BED IN LOWEST LOCKED POSITION, SIDERAILS UPX2, CALL LIGHT WITHIN EASY REACH. PATIENT BELONGINGS ACCOUNTED FOR. ORIENTED PATIENT TO STAFF, ROOM, AND UNIT. PATIENT MEDICALLY STABLE AT THIS TIME.
[2021-01-01] MEDS ORDERED: ALBUTEROL FS 2.5 MG/3 ML VIAL.NEB NEB PRN (22:30)
--- NOTE | 2021-01-01 22:50 | NUR ---
PEOPLESOFT TALEO MANAGER NOTES - CHEST PAIN PATIENT C/O 6 CHEST PAIN. ADMINISTERED NITROGLYCERIN PRN ORDERED. WILL CONTINUE TO ASSESS FOR PAIN.
[2021-01-02] VITALS: BP 117/60
[2021-01-02] MEDS: MORPHINE SULFATE INJ 2 MG/ML DISP.SYRIN IV PRN ×6 (01:03→22:04)
[2021-01-02 04:00] VITALS: BP 105/54
--- NOTE | 2021-01-02 06:53 | NUR ---
RETURNED TELEPHONE EQUIPMENT APPRAISER CLOSING NOTES PATIENT A/OX4; ABLE TO MAKE NEEDS KNOWN. ON ROOM AIR; TOLERATING WELL WITH NO SOB. EXTERNAL HEAD ANIMAL KEEPER READS AFIB AND HR AT 55. COLOSTOMY INTACT; NOTED WITH YELLOW COLORED BM; NO SKIN BREAKDOWN. IV #20G TO LAC; PATENT AND INTACT. OVERALL SKIN INTACT. SAFETY MEASURES IN PLACE; BED IN LOWEST LOCKED POSITION, SIDERAILS UPX2, CALL LIGHT WITHIN EASY REACH. PATIENT MEDICALLY STABLE AT THIS TIME. WILL ENDORSE PLAN OF CARE TO ONCOMING MORNING RN.
[2021-01-02 07:00] LABS: BASOPHILS % (AUTO) 0.8 % (0.0-2.0); EOSINOPHILS % (AUTO) 5.8 % (0.0-6.0); HEMATOCRIT 38 % (39-51); HEMOGLOBIN 12.3 g/dL (13.5-17.5); LYMPHOCYTES # (AUTO) 1.2 /CMM (0.8-4.8); MEAN CORPUSCULAR HGB CONC 33 g/dl (31.0-36.0); MEAN CORPUSCULAR VOLUME 94 fL (80-96); MONOCYTES # (AUTO) 0.7 /CMM (0.1-1.30); MONOCYTES % (AUTO) 13.5 % (2.0-12.0); NEUTROPHILS # (AUTO) 3.1 /CMM (1.8-8.9); NEUTROPHILS % (AUTO) 56.9 % (43.0-81.0); PLATELET COUNT (AUTO) 197 /CMM (150-450); RED BLOOD CELL COUNT(AUTO) 4.02 MIL/uL (4.5-6.0); WHITE BLOOD COUNT (AUTO) 5.4 K/uL (4.3-11.0)
--- NOTE | 2021-01-02 07:16 | NUR ---
GUIDE EXCURSION NOTES PATIENT IS IN BED RESTING, AWAKE AND VERBALLY RESPONSIVE. A/O X4, ABLE TO MAKE NEEDS KNOWN. BREATHING EVEN AND UNLABORED, TOLERATING ON ROOM AIR. ON TELE MONITORING, READING OF AFIB W/ HR IN THE 60'S. COLOSTOMY INTACT AND IN PLACE. IV LINE ON LAC #20 PATENT AND INTACT. SAFETY MEASURES IN PLACE. WILL CONTINUE TO MONITOR.
[2021-01-02 07:23] LABS: ALBUMIN 2.9 g/dL (3.4-5.0); BILIRUBIN,TOTAL 0.4 mg/dL (0.2-1.0); CREATININE 1.3 mg/dL (0.6-1.3); MAGNESIUM 1.7 mg/dL (1.8-2.4); PHOSPHORUS 3.9 mg/dL (2.5-4.9); POTASSIUM 3.8 mmol/L (3.5-5.1); TOTAL PROTEIN, SERUM 6.7 g/dL (6.4-8.2)
[2021-01-02 07:30] LABS: THYROID STIMULATING HORMONE 1.209 uIU/mL (0.358-3.74)
[2021-01-02 08:00] VITALS: BP 118/82
[2021-01-02] MEDS: APIXABAN 5 MG TABLET PO SCH ×2 (08:38→16:20)
[2021-01-02] MEDS: TAMSULOSIN 0.4 MG CAP.SR.24H PO SCH (08:38)
[2021-01-02] MEDS: ASPIRIN 81 MG TAB.CHEW PO SCH (08:39)
[2021-01-02] MEDS: METOPROLOL TARTRATE 25 MG TABLET PO SCH ×2 (08:39→16:17)
[2021-01-02] MEDS: PREGABALIN 25 MG CAPSULE PO SCH (08:39)
--- NOTE | 2021-01-02 10:08 | NUR ---
RN NOTES PATIENT WAS SEEN BY DR. UGALDE W/ JOSR FOR CT ANGIO HEART W/ 3D IMAGE. PROCEDURE CONSENT FORM PROVIDED TO AND SIGNED BY PATIENT; VERBALIZED NO ALLERGY TO CONTRAST. JAYLEEN FROM RADIOLOGY MADE AWARE AND WILL DO PROCEDURE BETWEEN [phone]. PATIENT OKAY TO DRINK FLUIDS BUT ADVISED NOT TO EAT PRIOR TO PROCEDURE. WILL CONTINUE TO MONITOR.
--- NOTE | 2021-01-02 10:30 | NUR ---
RN NOTES PATIENT D/C TELE MONITORING; TRANSFER TO ME PER DR. UGALDE.
[2021-01-02] MEDS: Magnesium 1GM/D5W 100ML PREMIX 100 ML IV SCH ×2 (10:43→12:33)
[2021-01-02] MEDS ORDERED: IOHEXOL-350 100 ML VIAL IV ONE (11:06)
[2021-01-02] MEDS ORDERED: IV NS 0.9% 250 ML IV ONE (11:06)
--- NOTE | 2021-01-02 11:59 | NUR ---
RN NOTES PATIENT PICKED UP FOR CT ANGIO PROCEDURE VIA WHEELCHAIR ACCOMPANIED BY PLATE WORKER.
--- NOTE | 2021-01-02 12:25 | NUR ---
POST CTA PROCEDURE WELL TOLERATED BY THE PT. PT IS AAOX4, NOT IN RESPIRATORY DISTRESS, V/S STABLE, KEPT RESTED AND COMFORTABLE. REPORT GIVEN TO TATE AGUIRRE FOR RAJINDER.
[2021-01-02] MEDS ORDERED: NITROGLYCERIN 0.4 MG/TAB BOTTLE SL ONE (12:30)
--- NOTE | 2021-01-02 12:36 | NUR ---
RN NOTES PATIENT RETURNED FROM PROCEDURE TODAY VIA WHEELCHAIR, ACCOMPANIED BY BREAKFAST HOST. PATIENT SEEN EATING LUNCH RIGHT NOW. WILL CONTINUE TO MONITOR.
[2021-01-02] MEDS ORDERED: FURO40TA5 PO (13:50)
[2021-01-02] MEDS ORDERED: ALLO300T2 PO (13:50)
[2021-01-02] MEDS ORDERED: OMEP20CA15 PO (13:50)
[2021-01-02] MEDS ORDERED: SERT-438 PO (13:50)
--- NOTE | 2021-01-02 13:51 | NUR ---
MED RECON/HEADLINE WRITER HOME MEDICATION INFORMATION UPDATED. PRIMARY RN AWARE.
[2021-01-02] MEDS ORDERED: TRAM50TA2 PO (14:01)
[2021-01-02 16:00] VITALS: BP 118/76
--- NOTE | 2021-01-02 19:01 | NUR ---
RN NOTES PATIENT IS IN BED, AWAKE AND VERBALLY RESPONSIVE. A/O X4, ABLE TO MAKE NEEDS KNOWN. BREATHING EVEN AND UNLABORED, CONTINUES ON ROOM AIR, NO SOB NOR RESPIRATORY DISTRESS. COLOSTOMY INTACT AND IN PLACE. IV LINE ON LAC #20 PATENT AND INTACT. S/P CT ANGIO PROCEDURE TODAY, NO COMPLICATIONS NOTED. SAFETY MEASURES MAINTAINED. WILL ENDORSE TO HEALTH CLUB ATTENDANT RN FOR RAJINDER.
--- NOTE | 2021-01-02 19:19 | NUR ---
MS RN OPENING NOTES PATIENT A/OX4; ABLE TO MAKE NEEDS KNOWN. ON ROOM AIR; TOLERATING WELL WITH NO SOB. COLOSTOMY INTACT; NOTED; NO SKIN BREAKDOWN; PATIENT MOTIVATED TO SELF CARE. IV #20G TO LAC; PATENT AND INTACT. DENIES DISCOMFORT AT THIS TIME. SAFETY MEASURES IN PLACE; BED IN LOWEST LOCKED POSITION, SIDERAILS UPX2, CALL LIGHT WITHIN EASY REACH. PATIENT MEDICALLY STABLE AT THIS TIME. WILL ENDORSE PLAN OF CARE TO ONCOMING MORNING RN.
[2021-01-02 20:03] VITALS: BP 122/74
[2021-01-02] MEDS ORDERED: ATORVASTATIN 10 MG TABLET PO SCH (22:00)
[2021-01-03] MEDS: MORPHINE SULFATE INJ 2 MG/ML DISP.SYRIN IV PRN ×4 (02:09→14:10)
[2021-01-03 06:43] LABS: BASOPHILS % (AUTO) 0.7 % (0.0-2.0); EOSINOPHILS % (AUTO) 5.7 % (0.0-6.0); HEMATOCRIT 39 % (39-51); HEMOGLOBIN 12.7 g/dL (13.5-17.5); LYMPHOCYTES # (AUTO) 1.1 /CMM (0.8-4.8); LYMPHOCYTES % (AUTO) 16.8 % (20.0-44.0); MEAN CORPUSCULAR HGB CONC 33 g/dl (31.0-36.0); MEAN CORPUSCULAR VOLUME 93 fL (80-96); MONOCYTES # (AUTO) 0.8 /CMM (0.1-1.30); MONOCYTES % (AUTO) 13.2 % (2.0-12.0); NEUTROPHILS % (AUTO) 63.6 % (43.0-81.0); PLATELET COUNT (AUTO) 193 /CMM (150-450); RED BLOOD CELL COUNT(AUTO) 4.14 MIL/uL (4.5-6.0); WHITE BLOOD COUNT (AUTO) 6.3 K/uL (4.3-11.0)
--- NOTE | 2021-01-03 07:05 | NUR ---
MS RN CLOSING NOTES PATIENT A/OX4; ABLE TO MAKE NEEDS KNOWN. ON ROOM AIR; TOLERATING WELL WITH NO SOB. COLOSTOMY INTACT; NOTED; NO SKIN BREAKDOWN; PATIENT MOTIVATED TO SELF CARE. IV S/L #20G TO LFA; PATENT AND INTACT. DENIES DISCOMFORT AT THIS TIME. SAFETY MEASURES IN PLACE; BED IN LOWEST LOCKED POSITION, SIDERAILS UPX2, CALL LIGHT WITHIN EASY REACH. PATIENT MEDICALLY STABLE AT THIS TIME. WILL ENDORSE PLAN OF CARE TO ONCOMING MORNING RN.
--- NOTE | 2021-01-03 07:24 | NUR ---
MS/RN OPENING NOTE RECEIVED FROM CLOTHING DESIGNER NURSE. PATIENT IS ASLEEP IN BED, EASILY WOKEN UP. A/O X4 NO ACUTE DISTRESS NOTED, PATIENT DENIES ANY PAIN OR SOB. PATIENT ON ROOM TOLERATING WELL, BREATHING EVEN, NON LABORED. SAFETY MEASURES IN PLACE, BED LOCKED AND IN LOWEST POSITION, CALL LIGHT WITHIN REACH. WILL CONTINUE TO MONITOR AND ENSURE SAFETY.
[2021-01-03 08:00] LABS: CALCIUM, SERUM 8.6 mg/dL (8.5-10.1); CREATININE 1.1 mg/dL (0.6-1.3); MAGNESIUM 1.9 mg/dL (1.8-2.4); PHOSPHORUS 3.4 mg/dL (2.5-4.9)
[2021-01-03] MEDS: TAMSULOSIN 0.4 MG CAP.SR.24H PO SCH (08:38)
[2021-01-03] MEDS: PREGABALIN 25 MG CAPSULE PO SCH (08:38)
[2021-01-03] MEDS: ASPIRIN 81 MG TAB.CHEW PO SCH (08:38)
[2021-01-03] MEDS: APIXABAN 5 MG TABLET PO SCH (08:39)
[2021-01-03] MEDS: METOPROLOL TARTRATE 25 MG TABLET PO SCH (08:40)
[2021-01-03 09:35] LABS: IRON, SERUM 48 ug/dl (50-175); TOTAL IRON BINDING CAPACITY 324 ug/dl (250-450)
[2021-01-03 09:48] LABS: FERRITIN 69 ng/mL (8-388)
[2021-01-03 16:26] VITALS: BP 135/85
--- NOTE | 2021-01-03 16:40 | NUR ---
MS/RN DISCHARGED PATIENT WAS DISCHARGED TO HOME IN MEDICALLY STABLE CONDITION. HEPLOCK REMOVED, PRESSURE DRESSING WAS APPLIED. NAME BAND REMOVED. ALL PERSONAL BELONGINGS ACCOUNTED FOR IN BELONGINGS LIST AND SIGNED BY PATIENT. EDUCATED PATIENT ON EXIT CARE. COPY OF EXIT CARE PROVIDED TO PATIENT AND PARAMEDICS. PATIENT LEFT UNIT FLOOR VIA GURNEY ACCOMPANIED BY TWO PARAMEDICS.
== END 2021-01-03 16:40 | disposition home or self-care (01) | DRG 391 ==
LOC: ER 20:19 → TELE 21:49 → MED 01-02 20:12
PROVIDERS: ADMIT Registered Nurse; ATTEND Nurse Practitioner Acute Care
DX: K20.80 Other esophagitis without bleeding (principal); N17.0 Acute kidney failure with tubular necrosis; F10.288 Alcohol dependence with other alcohol-induced disorder; E44.0 Moderate protein-calorie malnutrition; D68.69 Other thrombophilia; Z68.41 Body mass index [BMI] 40.0-44.9, adult; K20.90 Esophagitis, unspecified without bleeding; Y90.9 Presence of alcohol in blood, level not specified; E11.40 Type 2 diabetes mellitus with diabetic neuropathy, unspecified; E11.22 Type 2 diabetes mellitus with diabetic chronic kidney disease; I12.9 Hypertensive chronic kidney disease with stage 1 through stage 4 chronic kidney disease, or unspecified chronic kidney disease; N18.9 Chronic kidney disease, unspecified; E83.42 Hypomagnesemia; E78.5 Hyperlipidemia, unspecified; E66.01 Morbid (severe) obesity due to excess calories; G47.33 Obstructive sleep apnea (adult) (pediatric); I25.10 Atherosclerotic heart disease of native coronary artery without angina pectoris; I25.84 Coronary atherosclerosis due to calcified coronary lesion; Z79.01 Long term (current) use of anticoagulants; Z93.3 Colostomy status; I48.91 Unspecified atrial fibrillation; E88.09 Other disorders of plasma-protein metabolism, not elsewhere classified; Z71.3 Dietary counseling and surveillance; D64.9 Anemia, unspecified; I27.20 Pulmonary hypertension, unspecified; Z20.822 Contact with and (suspected) exposure to COVID-19; Z90.49 Acquired absence of other specified parts of digestive tract
CPT/HCPCS: 36415; 71045-TC; 75574; 80048-TC; 80053-TC; 80061-TC; 80076-TC; 82728-TC; 83540-TC; 83735-TC; 83880; 84100-TC; 84443-TC; 84484-TC; 85025-TC; 85730-TC; 87081-TC; 93307-TC; C9803; G0378; J2270; J2405; J3475; J7050; Q9967

== ENCOUNTER 2021-01-17 10:05 | Inpatient (IN) | payer MEDICARE, OTHER ==
[~2021-01-17] VITALS: Ht 182.9 cm; Wt 139.7 kg
[~2021-01-17 10:05] MED LIST changes: +ALLO300T2 PO; +FURO40TA5 PO; -HYDR-4384 PO; +OMEP20CA15 PO; +SERT-438 PO; +TRAM50TA2 PO
--- NOTE | 2021-01-17 10:05 | NUR ---
PT BIB SELF C/O BURNING SENSATION UPON URINATION AND CHEST PAIN. PT IS AAOX4, NOT IN RESPIRATORY DISTRESS, HOOKED TO CEO NA, KEPT RESTED AND COMFORTABLE. WILL CONTINUE TO MONITOR.
--- NOTE | 2021-01-17 10:23 | NUR ---
SEEN AND EXAMINED BY .
[2021-01-17] MEDS ORDERED: ONDANSETRON HCL/PF 4 MG/2 ML VIAL IVP ONE (10:30)
[2021-01-17] MEDS ORDERED: MORPHINE SULFATE INJ 2 MG/ML DISP.SYRIN IV ONE (10:30)
[2021-01-17] MEDS ORDERED: IV NS 0.9% 1,000 ML BAG IV ONE (10:30)
[2021-01-17] MEDS ORDERED: CEFTRIAXONE 1GM BAG (ER ONLY) 50 ML IV ONE ×2 (10:30→10:31)
[2021-01-17] MEDS ORDERED: ONDANSETRON HCL/PF 4 MG/2 ML VIAL ONE (10:31)
[2021-01-17] MEDS ORDERED: MORPHINE SULFATE INJ 4 MG/ML DISP.SYRIN ONE (10:31)
--- NOTE | 2021-01-17 10:32 | NUR ---
URINE SPECIMEN COLLECTED AND SENT TO LAB.
--- NOTE | 2021-01-17 10:40 | NUR ---
IV LINE ESTABLISHED BLOOD DRAWN AND SENT TO LAB.
[2021-01-17 10:59] LABS: BASOPHILS # (AUTO) 0.1 /CMM (0.0-0.2); BASOPHILS % (AUTO) 0.3 % (0.0-2.0); HEMATOCRIT 44 % (39-51); HEMOGLOBIN 14.5 g/dL (13.5-17.5); LYMPHOCYTES # (AUTO) 0.6 /CMM (0.8-4.8); LYMPHOCYTES % (AUTO) 2.1 % (20.0-44.0); MEAN CORPUSCULAR HGB CONC 33 g/dl (31.0-36.0); MEAN CORPUSCULAR VOLUME 93 fL (80-96); MONOCYTES # (AUTO) 1.9 /CMM (0.1-1.30); NEUTROPHILS # (AUTO) 24.8 /CMM (1.8-8.9); NEUTROPHILS % (AUTO) 90.6 % (43.0-81.0); PLATELET COUNT (AUTO) 196 /CMM (150-450); RED BLOOD CELL COUNT(AUTO) 4.71 MIL/uL (4.5-6.0); WHITE BLOOD COUNT (AUTO) 27.4 K/uL (4.3-11.0)
[2021-01-17 11:10] LABS: CALCIUM, SERUM 9.1 mg/dL (8.5-10.1); CARBON DIOXIDE 24 mmol/L (21-32); CHLORIDE 97 mmol/L (98-107); CREATININE 1.7 mg/dL (0.6-1.3); GLUCOSE 171 mg/dL (74-106); SODIUM SERUM 133 mmol/L (136-145); UREA NITROGEN, BLOOD 17 mg/dL (7-18)
[2021-01-17 11:24] LABS: ALANINE AMINOTRANSFERASE 24 U/L (12-78); ALKALINE PHOSPHATASE 74 U/L (46-116); ASPARTATE AMINOTRANSFERASE 15 U/L (15-37); BILIRUBIN,DIRECT 0.4 mg/dL (0.0-0.2); BILIRUBIN,TOTAL 1.8 mg/dL (0.2-1.0); TOTAL PROTEIN, SERUM 7.8 g/dL (6.4-8.2)
[2021-01-17 11:39] LABS: BILIRUBIN,URINE SMALL (NEGATIVE); COLOR,URINE DARK YELLOW (YELLOW); LEUKOCYTE ESTERASE ,URINE TRACE (NEGATIVE); NITRITE, URINE POSITIVE (NEGATIVE); PROTEIN,URINE 100 mg/dl (NEGATIVE); UGLUCOSE NEGATIVE (NEGATIVE); UROBILINOGEN,URINE 0.2 EU/dL (0.2)
[2021-01-17 12:15] LABS: BAND % (MANUAL) 8 % (0.0-5.0); LYMPHOCYTES % (MANUAL) 2 % (16-48); MONOCYTES % (MANUAL) 12 % (0-11.0); NEUTROPHILS % (MANUAL) 78 (42-76)
--- NOTE | 2021-01-17 12:23 | NUR ---
GOING TO BED 103
[2021-01-17 12:26] LABS: BACTERIA,URINE Moderate /HPF (None Seen); WBC,URINE 21-50 /HPF (0-3)
[2021-01-17 12:27] LABS: SQUAMOUS EPITHELIAL CELL,UR Rare /HPF (None Seen)
[2021-01-17] MEDS ORDERED: ACET-868 PO (12:34)
[2021-01-17] MEDS ORDERED: TRAZ-252 PO (12:34)
[2021-01-17] MEDS ORDERED: HYDR-500 PO (12:34)
--- NOTE | 2021-01-17 12:50 | NUR ---
REPORT GIVEN T JAMI HELENE FOR RAJINDER.
[2021-01-17] MEDS ORDERED: Z GUARD REMEDY 2 OZ OINT TP PRN (14:00)
[2021-01-17] MEDS ORDERED: MAG HYDROX/AL HYDROX/SIMETH 30 ML UDC PO PRN (14:00)
[2021-01-17] MEDS ORDERED: ZOLPIDEM TARTRATE 5 MG TABLET PO PRN (14:00)
[2021-01-17] MEDS ORDERED: MAGNESIUM HYDROXIDE 30 ML UDC PO PRN (14:00)
[2021-01-17 14:37] VITALS: BP 120/59
[2021-01-17] MEDS: ACETAMINOPHEN 325 MG TABLET PO PRN (14:54)
[2021-01-17] MEDS: HYDROCODONE/APAP 5/325MG TABLET PO PRN (14:55)
[2021-01-17] MEDS ORDERED: INSULIN REGULAR, HUMAN 100 UNIT/ML 3 ML VIAL SQ PRN (16:00)
[2021-01-17] MEDS ORDERED: DEXTROSE 50%-WATER 50 ML DISP.SYRIN IV PRN (16:00)
[2021-01-17] MEDS ORDERED: POTASSIUM CHLORIDE 20 MEQ TAB.PRT.SR PO ONE (17:00)
[2021-01-17] MEDS: AZITHROMYCIN 500 MG in IV D5W 250 ML IV SCH (17:15)
[2021-01-17] MEDS: ONDANSETRON HCL/PF 4 MG/2 ML VIAL IVP PRN (17:18)
[2021-01-17] MEDS: MORPHINE SULFATE INJ 2 MG/ML DISP.SYRIN IV PRN ×2 (17:19→23:40)
[2021-01-17] MEDS: BLOOD SUGAR DIAGNOSTIC 1 EACH STRIP IN SCH ×2 (17:45→22:10)
[2021-01-17 18:46] VITALS: BP 114/79
--- NOTE | 2021-01-17 18:48 | NUR ---
PATIENT RECEIVED FROM ER AT 1315. UPON ASSESSMENT PATIENT HAD FEVER OF 102.2. MD AWARE AND PRN TYLENOL ADMINISTERED. COLOSTOMY NOTED DRAINING GREEN STOOL. ABDOMINAL SCAR FROM PREVIOUS SURGERY NOTED. PATIENT REFUSED PHOTO. RIGHT HAND AND LEFT HAND 20 G IV INTACT AND PATENT. PATIENT ON ROOM AIR SATTING AT 98%. PATIENT REPORTED NAUSE BUT NO EMESIS. PRN ZOFRAN ADMINISTERED. PATIENT IN BED RESTING IN [place]-F[place] POSITION. PATIENT IS ALERT AND ORIENTED AND ABLE TO MAKE NEEDS KNOWN. NO RESPIRATORY DISTRESS NOTED OR COMPLAINTS OF SOB. SAFETY PRECAUTIONS IMPLEMENTED, BED LOCKED IN LOWEST POSITION, SIDE RAILS UP X2, CALL LIGHT WITHIN REACH. WILL ENDORSE CONTINUATION OF CARE TO UPCOMING SHIFT.
[2021-01-17] MEDS: IV NS 0.9% 1,000 ML IV PRN (19:20)
[2021-01-17 20:00] VITALS: BP 127/65
--- NOTE | 2021-01-17 20:00 | NUR ---
SECURITY THREAT ANALYST NOTE PT IN BED SITTING UP. A/O X 4, NO SOB, NO DISTRESS OR DISCOMFORT NOTED. DENIES PAIN. IVF NS @ 75 ML/HR INFUSING WELL RT HAND # 20 G NO S/S OF INFILTRATION NOTED ON RT HAND AND LEFT HAND # 20 G SL. ON TELE MONITOR A FIB HR 83 CONTROLLED. COLOSTOMY BAG INTACT AND PATENT DRAINING GREENISH BROWNISH LIQUIDY STOOL. ALL NEEDS ATTENDED. VSS. CALL LIGHT WITH IN REACH. CONTINUE TO MONITOR HIM.
--- NOTE | 2021-01-17 23:40 | NUR ---
ADJUSTER ELECTRICAL CONTACTS NOTE PT C/O SHARP PAIN IN ABD AREA 06/14, 2 MG MORPHINE IVP GIVEN BY CHARGE NURSE WILL. CONTINUE TO MONITOR HIM.
[2021-01-18] VITALS: BP 148/86
--- NOTE | 2021-01-18 00:10 | NUR ---
CIRCUITRY NEGATIVE INSPECTOR NOTE PAIN SUBSIDED 2/10 IN ABD AREA. PT FALLING ASLEEP. CONTINUE TO MONITOR
[2021-01-18] MEDS: ONDANSETRON HCL/PF 4 MG/2 ML VIAL IVP PRN ×2 (02:09→10:01)
[2021-01-18 04:00] VITALS: BP 108/63
[2021-01-18] MEDS: IV NS 0.9% 1,000 ML IV PRN ×2 (05:35→23:30)
[2021-01-18] MEDS: MORPHINE SULFATE INJ 2 MG/ML DISP.SYRIN IV PRN ×5 (05:38→23:37)
[2021-01-18 06:42] LABS: BASOPHILS % (AUTO) 0.2 % (0.0-2.0); EOSINOPHILS % (AUTO) 0.1 % (0.0-6.0); HEMATOCRIT 46 % (39-51); HEMOGLOBIN 14.9 g/dL (13.5-17.5); LYMPHOCYTES # (AUTO) 0.5 /CMM (0.8-4.8); LYMPHOCYTES % (AUTO) 2.5 % (20.0-44.0); MEAN CORPUSCULAR HGB CONC 33 g/dl (31.0-36.0); MEAN CORPUSCULAR VOLUME 94 fL (80-96); MONOCYTES # (AUTO) 1.9 /CMM (0.1-1.30); MONOCYTES % (AUTO) 8.5 % (2.0-12.0); NEUTROPHILS # (AUTO) 19.7 /CMM (1.8-8.9); NEUTROPHILS % (AUTO) 88.7 % (43.0-81.0); RED BLOOD CELL COUNT(AUTO) 4.83 MIL/uL (4.5-6.0); WHITE BLOOD COUNT (AUTO) 22.2 K/uL (4.3-11.0)
--- NOTE | 2021-01-18 06:45 | NUR ---
DIRECTOR OF PLAYER PERSONNEL NOTE PT IN BED ASLEEP, AROUSABLE. NO DISTRESS OR DISCOMFORT NOTED. DENIES PAIN AT THIS TIME. IVF INFUSING WELL, NO S/S OF INFILTRATION NOTED. ON TELE MONITOR A FIB / A FLUTTER DURING THE SHIFT. AT THIS A FLUTTER HR 98 CONTROLLED. COLOSTOMY BAG INTACT AND PATENT DRAINING GREENISH COLOR LIQUIDY STOOL. ALL NEEDS ATTENDED. KEPT HIM DRY AND CLEAN. WILL ENDORSE TO DAY SHIFT NURSE FOR CONTINUE TO CARE.
[2021-01-18 07:37] LABS: CREATININE 1.4 mg/dL (0.6-1.3); MAGNESIUM 1.5 mg/dL (1.8-2.4); PHOSPHORUS 1.8 mg/dL (2.5-4.9); POTASSIUM 3.6 mmol/L (3.5-5.1)
[2021-01-18] MEDS: ACETAMINOPHEN 325 MG TABLET PO PRN ×2 (07:54→20:04)
[2021-01-18 08:00] VITALS: BP 187/94
[2021-01-18] MEDS ORDERED: MAGNESIUM OXIDE 400 MG TABLET PO ONE (08:00)
--- NOTE | 2021-01-18 08:00 | NUR ---
PATIENT RECEIVED IN BED, ON ROOM AIR, NO SOB. PATIENT ALERT AND ORIENTED X 4. PATIENT ON MONITOR. SHOWING AFIB 100s. PATIENT HAS COLOSTOMY BAG , ABLE TO CHANGE INDEPENDENTLY. PATIENT ON CARDIAC DIET. PATIENT HAS RIGHT HAND 20 G RUNNIGN NS AT 75 ML /HR, AND LEFT HAND 20G IV. NO SIGNS OF INFECTION OR INFILTRATION. PATIENT HAS ACHS SLIDING SCALE. ALL SAFETY MEASURES IN PLACE. WILL CONTINUE TO MONITOR CLOSELY
--- NOTE | 2021-01-18 08:00 | NUR ---
PATIENT TEMPERATURE 100.2, ICE PACKS GIVEN UNDER BILATERAL AXILLARY, COOL WASH CLOTH APPLIED, ACETAMINOPHEN GIVEN. WILL CONTINUE TO MONITOR
[2021-01-18 08:01] LABS: THYROID STIMULATING HORMONE 0.489 uIU/mL (0.358-3.74)
[2021-01-18] MEDS: BLOOD SUGAR DIAGNOSTIC 1 EACH STRIP IN SCH (08:03)
[2021-01-18] MEDS: K PHOS NEUTRAL 250 MG TABLET PO SCH ×2 (08:28→16:48)
[2021-01-18] MEDS: HYDROCODONE/APAP 5/325MG TABLET PO PRN ×2 (08:54→09:02)
[2021-01-18] MEDS ORDERED: CEFTRIAXONE 1 G in IV D5W 50 ML IV SCH (09:00)
[2021-01-18 09:37] LABS: PLATELET COUNT (AUTO) 167 /CMM (150-450)
--- NOTE | 2021-01-18 09:50 | NUR ---
PER MD JUÁREZ AT BEDSIDE, WILL COMPLETE MED RECONCILIATION. HGB A1C RESULT OF 5.8 ENDORSED, GIVES ORDER TO DC SLIDING SCALE CHECKS AND COVERAGE. Addendum: 01/18/21 at 1147 by LENORA GARDNER RN ALSO NOTIFIED OF INCREASED BP, HAS HOME BP MEDS, MED RECS TO BE COMPLETED BY
--- NOTE | 2021-01-18 10:02 | NUR ---
NORCO GIVEN FOR PAIN DIRECTED. PATIENT AT 0854 INITIALLY REQUESTED PAIN MEDS, THEN REFUSED THE NORCO. MEDICATION DISCARDED IN PHARMACEUTICAL WASTE BIN IN MED ROOM. PATIENT THEN REQUESTED NORCO AND GIVEN MED AT 1002.
[2021-01-18 16:00] VITALS: BP 188/97
[2021-01-18] MEDS ORDERED: TRAZODONE 50 MG TABLET PO PRN (16:30)
[2021-01-18] MEDS ORDERED: ZOLPIDEM TARTRATE 5 MG TABLET PO PRN (16:30)
[2021-01-18] MEDS ORDERED: TRAMADOL HCL 50 MG TABLET PO PRN (16:30)
[2021-01-18] MEDS ORDERED: ACETAMINOPHEN 325 MG TABLET PO PRN (16:30)
[2021-01-18] MEDS: METOPROLOL TARTRATE 25 MG TABLET PO SCH (16:48)
[2021-01-18] MEDS ORDERED: ALBUTEROL FS 2.5 MG/3 ML VIAL.NEB IH PRN (17:00)
[2021-01-18] MEDS: AZITHROMYCIN 500 MG in IV D5W 250 ML IV SCH (18:35)
--- NOTE | 2021-01-18 19:21 | NUR ---
MS RN: CONTINUITY OF CARE Patient in bed, awake, A/O x4. IVF infusing. Patient looks anxious to get pain medication, education provided, verbalized understanding. Fall precaution maintained.
[2021-01-18 19:30] VITALS: BP 179/106
--- NOTE | 2021-01-18 19:36 | NUR ---
MS RN: BP ELEVATED Elevated BP 179/106 Temp 103.2 Patient c/o bladder pain 8/10 Morphine 2mg given, loosen clothing. Denies N/V. Voided urinal 200 ml jessica yellow.
--- NOTE | 2021-01-18 20:01 | NUR ---
PATIENT HAD NO ACUTE CHANGES THIS SHIFT, ALL SAFETY MEASURES IN PLACE. PATIENT REFUSED TO BE CLEANED THIS SHIFT. PATIENT CONTINUES TO RUN NS AT 75 ML/HR, NO SIGNS OF INFECTION OR INFILTRATION. ALL SAFETY MEASURES IN PLACE. REPORT GIVEN TO ONCOMING RN FOR RAJINDER
--- NOTE | 2021-01-18 20:04 | NUR ---
MS RN: ELEVATED TEMP. Elevated temp 103.2 Tylenol 650mg given. Informed Mendoza/JOSE.
[2021-01-18] MEDS: APIXABAN 5 MG TABLET PO SCH (21:35)
[2021-01-18] MEDS: TAMSULOSIN 0.4 MG CAP.SR.24H PO SCH (21:35)
[2021-01-18] MEDS: PREGABALIN 25 MG CAPSULE PO SCH (21:35)
[2021-01-18] MEDS: METRONIDAZOLE 500 MG TABLET PO SCH (22:12)
[2021-01-18 22:18] VITALS: BP 145/90
--- NOTE | 2021-01-18 22:20 | NUR ---
MS RN: STOOL CDIFF Stool collected for cdiff (admission <3 days) and send to lab. BP improved 145/90. Temp 100.6 oral.
[2021-01-18] MEDS ORDERED: MEROPENEM 500 MG VIAL IV ONE (22:30)
[2021-01-18] MEDS: MEROPENEM 500 MG in IV NS 0.9% 50 ML IV SCH (22:34)
--- NOTE | 2021-01-18 23:09 | NUR ---
MS RN: BLADDER SCAN Urinated 210 ml jessica yellow. Bladder scan showed 51 ml post void.
[2021-01-19] MEDS ORDERED: MEROPENEM 500 MG VIAL IV ONE (04:41)
[2021-01-19] MEDS: METRONIDAZOLE 500 MG TABLET PO SCH ×3 (05:04→21:03)
[2021-01-19] MEDS: ACETAMINOPHEN 325 MG TABLET PO PRN ×2 (05:04→19:38)
[2021-01-19] MEDS: MORPHINE SULFATE INJ 2 MG/ML DISP.SYRIN IV PRN ×4 (05:07→23:41)
[2021-01-19] MEDS: MEROPENEM 500 MG in IV NS 0.9% 50 ML IV SCH (05:09)
[2021-01-19 05:41] VITALS: BP 117/87
--- NOTE | 2021-01-19 06:16 | NUR ---
MS RN: END OF SHIFT REPORT IVF infusing, on IV Meropenem and PO Flagyl. Temp improving 99.4 oral. Stool Cdiff pending result. Body ache, back pain, bladder pain managed with PRN Morphine. Good urine output, bladder scan q8 showed 61 ml post void residual. Fall precaution maintained.
[2021-01-19] MEDS: PANTOPRAZOLE 40 MG TABLET.DR PO SCH (07:40)
--- NOTE | 2021-01-19 07:55 | NUR ---
RN OPENING NOTE PATIENT IS IN BED WITH HOB AT SEMI FOWLERS POSITION. PATIENT IS CURRENTLY AOX4. CURRENTLY ON ROOM AIR WITH NO SIGNS OF LABORED BREATHING. COLOSTOMY BAG IS IN PLACE. ABD SCAR NOTED. RWRIST#20 IS PATENT, INTACT, AND HAS NO SIGNS OF INFILTRATION. BED IS LOCKED IN THE LOWEST POSITION, 3 GUARD RAILS RAISED, CALL LYNN WITHIN REACH, AND ALL HOSPITAL SAFETY PRECAUTIONS ARE BEING FOLLOWED. WILL CONTINUE TO MONITOR THROUGHOUT SHIFT.
[2021-01-19 08:00] VITALS: BP 124/73
[2021-01-19 08:51] LABS: ALBUMIN 2.3 g/dL (3.4-5.0); BILIRUBIN,TOTAL 0.6 mg/dL (0.2-1.0); CALCIUM, SERUM 8.9 mg/dL (8.5-10.1); CREATININE 1.3 mg/dL (0.6-1.3); MAGNESIUM 1.7 mg/dL (1.8-2.4); PHOSPHORUS 1.8 mg/dL (2.5-4.9); POTASSIUM 3.7 mmol/L (3.5-5.1); TOTAL PROTEIN, SERUM 7.1 g/dL (6.4-8.2)
[2021-01-19] MEDS: ATORVASTATIN 10 MG TABLET PO SCH (09:05)
[2021-01-19] MEDS: ALLOPURINOL 100 MG TABLET PO SCH (09:05)
[2021-01-19] MEDS: METOPROLOL TARTRATE 25 MG TABLET PO SCH ×2 (09:06→16:15)
[2021-01-19] MEDS: SERTRALINE HCL 50 MG TABLET PO SCH (09:07)
[2021-01-19] MEDS: K PHOS NEUTRAL 250 MG TABLET PO SCH (09:07)
[2021-01-19 09:17] LABS: BASOPHILS % (AUTO) 0.4 % (0.0-2.0); EOSINOPHILS % (AUTO) 0.7 % (0.0-6.0); HEMATOCRIT 41 % (39-51); HEMOGLOBIN 13.4 g/dL (13.5-17.5); LYMPHOCYTES # (AUTO) 0.3 /CMM (0.8-4.8); LYMPHOCYTES % (AUTO) 4.3 % (20.0-44.0); MEAN CORPUSCULAR HGB CONC 33 g/dl (31.0-36.0); MEAN CORPUSCULAR VOLUME 95 fL (80-96); MONOCYTES # (AUTO) 0.6 /CMM (0.1-1.30); MONOCYTES % (AUTO) 8.3 % (2.0-12.0); NEUTROPHILS # (AUTO) 6.2 /CMM (1.8-8.9); NEUTROPHILS % (AUTO) 86.3 % (43.0-81.0); PLATELET COUNT (AUTO) 142 /CMM (150-450); RED BLOOD CELL COUNT(AUTO) 4.32 MIL/uL (4.5-6.0); WHITE BLOOD COUNT (AUTO) 7.2 K/uL (4.3-11.0)
[2021-01-19] MEDS: APIXABAN 5 MG TABLET PO SCH ×2 (09:42→21:04)
[2021-01-19] MEDS: Magnesium 1GM/D5W 100ML PREMIX 100 ML IV SCH ×2 (10:00→11:05)
[2021-01-19] MEDS ORDERED: MEROPENEM 500 MG in IV NS 0.9% 50 ML IV SCH (13:00)
[2021-01-19] MEDS: HYDROCODONE/APAP 5/325MG TABLET PO PRN (13:05)
[2021-01-19] MEDS: MEROPENEM 1 G in IV NS 0.9% 100 ML IV SCH ×2 (13:06→21:06)
--- NOTE | 2021-01-19 13:14 | NUR ---
RN NOTE ATTEMPTED TO ADMINISTER NORCO. PATIENT REFUSED AND DEMANDED MORPHINE.
[2021-01-19] MEDS: K PHOS NEUTRAL 250 MG TABLET PO ONE ×2 (13:30→13:40)
--- NOTE | 2021-01-19 14:30 | NUR ---
RN NOTE BLADDER SCAN SHOWED 75 CC IN BLADDER. OUTPUT FOR SHIFT HAS BEEN 350 CC OF URINE.
[2021-01-19 16:00] VITALS: BP 126/80
--- NOTE | 2021-01-19 19:39 | NUR ---
RN CLOSING NOTE PATIENT IS IN BED WITH HOB AT SEMI FOWLERS POSITION. PATIENT IS CURRENTLY AOX4. CURRENTLY ON ROOM AIR WITH NO SIGNS OF LABORED BREATHING. COLOSTOMY BAG IS IN PLACE. ABD SCAR NOTED. RWRIST#20 IS PATENT, INTACT, AND HAS NO SIGNS OF INFILTRATION. BED IS LOCKED IN THE LOWEST POSITION, 3 GUARD RAILS RAISED, CALL LYNN WITHIN REACH, AND ALL HOSPITAL SAFETY PRECAUTIONS ARE BEING FOLLOWED. ALL MEDS GIVEN DURING SHIFT. WILL ENDORSE TO SPRING CRATER RN.
[2021-01-19] MEDS: IV NS 0.9% 1,000 ML IV PRN (19:41)
[2021-01-19 20:00] VITALS: BP 124/74
[2021-01-19] MEDS: TAMSULOSIN 0.4 MG CAP.SR.24H PO SCH (21:04)
[2021-01-19] MEDS: PREGABALIN 25 MG CAPSULE PO SCH (21:04)
--- NOTE | 2021-01-19 22:25 | NUR ---
MS-1/TIMBER SKIDDER BLADDERSCAN REVEALS LESS THAN 20ML URINE IN THE BLADDER. PT VOIDING REGULARLY WITH URINAL AT BEDSIDE.
[2021-01-20 04:00] VITALS: BP 145/74
[2021-01-20] MEDS: MORPHINE SULFATE INJ 2 MG/ML DISP.SYRIN IV PRN ×4 (04:31→21:05)
[2021-01-20] MEDS: MEROPENEM 1 G in IV NS 0.9% 100 ML IV SCH ×2 (04:34→13:08)
[2021-01-20] MEDS: METRONIDAZOLE 500 MG TABLET PO SCH ×3 (04:35→21:09)
[2021-01-20 08:00] VITALS: BP 128/75
[2021-01-20] MEDS: PANTOPRAZOLE 40 MG TABLET.DR PO SCH (08:52)
[2021-01-20] MEDS: SERTRALINE HCL 50 MG TABLET PO SCH (08:53)
[2021-01-20] MEDS: APIXABAN 5 MG TABLET PO SCH ×2 (08:53→21:10)
[2021-01-20] MEDS: ATORVASTATIN 10 MG TABLET PO SCH (08:53)
[2021-01-20] MEDS: METOPROLOL TARTRATE 25 MG TABLET PO SCH ×2 (08:54→17:11)
[2021-01-20] MEDS: ALLOPURINOL 100 MG TABLET PO SCH (08:54)
[2021-01-20] MEDS: HYDROCODONE/APAP 5/325MG TABLET PO PRN (13:14)
[2021-01-20 16:00] VITALS: BP 114/74
[2021-01-20 16:12] LABS: HEMOGLOBIN 13.3 g/dL (13.5-17.5)
[2021-01-20 16:27] LABS: CREATININE 1.2 mg/dL (0.6-1.3); PHOSPHORUS 2.6 mg/dL (2.5-4.9); POTASSIUM 4.2 mmol/L (3.5-5.1)
[2021-01-20 16:33] LABS: BASOPHILS % (AUTO) 0.7 % (0.0-2.0); EOSINOPHILS % (AUTO) 3.3 % (0.0-6.0); HEMATOCRIT 41 % (39-51); LYMPHOCYTES # (AUTO) 0.5 /CMM (0.8-4.8); LYMPHOCYTES % (AUTO) 10.3 % (20.0-44.0); MEAN CORPUSCULAR HGB CONC 33 g/dl (31.0-36.0); MEAN CORPUSCULAR VOLUME 93 fL (80-96); MONOCYTES # (AUTO) 1.3 /CMM (0.1-1.30); MONOCYTES % (AUTO) 29.2 % (2.0-12.0); NEUTROPHILS # (AUTO) 2.5 /CMM (1.8-8.9); NEUTROPHILS % (AUTO) 56.5 % (43.0-81.0); PLATELET COUNT (AUTO) 166 /CMM (150-450); RED BLOOD CELL COUNT(AUTO) 4.36 MIL/uL (4.5-6.0); WHITE BLOOD COUNT (AUTO) 4.4 K/uL (4.3-11.0)
[2021-01-20] MEDS: IV NS 0.9% 1,000 ML IV PRN (17:18)
--- NOTE | 2021-01-20 18:00 | NUR ---
RN Closing Note: Patient resting in bed. No s/s of discomfort or distress. No changes in condition throughout the shift. Tolerated diet, medications, and cares well. Remains independent with colostomy. IVs to bilateral hands patent, c/d/i. Needs met at this time. Will endorse to TATE Boudreaux. Addendum: 01/20/21 at 193 by REGISTRY [facility] KIP YBARRA bladder scan this afternoon was 150 ml, no straight catheterization required. Addendum: 01/20/21 at 1940 by REGISTRY [facility] KIP YBARRA Endorsement to jacqueline Paris
[2021-01-20 18:46] LABS: BAND % (MANUAL) 2 % (0.0-5.0); EOSINOPHILS % (MANUAL) 1 % (0-4); LYMPHOCYTES % (MANUAL) 30 % (16-48); MONOCYTES % (MANUAL) 25 % (0-11.0); NEUTROPHILS % (MANUAL) 42 (42-76)
--- NOTE | 2021-01-20 19:20 | NUR ---
MS RN OPENING NOTES: RECEIVED PT IN BED, AWAKE, A/O X4. NO S/S OF DISTRESS NOTED. CALL LIGHT WITHIN REACH. BED IN LOWEST AND LOCKED POSITION. BED ALARM ON. WITH LLQ ABDOMEN COLOSTOMY,INTACT,WITH BROWNISH COLOR,LIQUIDY STOOL.
[2021-01-20 20:00] VITALS: BP 115/74
[2021-01-20] MEDS ORDERED: CEFTRIAXONE 1 G in IV D5W 50 ML IV SCH (21:00)
[2021-01-20] MEDS: TAMSULOSIN 0.4 MG CAP.SR.24H PO SCH (21:10)
--- NOTE | 2021-01-20 22:00 | NUR ---
BLADDER SCANNED= ONLY 15ML.
--- NOTE | 2021-01-20 22:10 | NUR ---
RIGHT HAND IV CLOGGED, D/C BY CHARGE NURSE WILL. LEFT HAND IV IS LEAKING, REMOVED, TIP IS INTACT.
[2021-01-20] MEDS: PREGABALIN 25 MG CAPSULE PO SCH (22:33)
[2021-01-21] MEDS: HYDROCODONE/APAP 5/325MG TABLET PO PRN ×3 (01:20→12:58)
--- NOTE | 2021-01-21 01:26 | NUR ---
RN NOTES COVERING RN PULLED OUT NORCO PRN MED FOR PAIN, PT'S PAIN 4-5. UPON GIVING TO PT, PT REFUSED AND WANTS MORPHINE INSTEAD. WASTED MEDS, CARE TRANSITIONS MANAGER WITNESSED AND WELL AWARE. WILL ENDORSE TO PRIMARY RN.
[2021-01-21] MEDS: MORPHINE SULFATE INJ 2 MG/ML DISP.SYRIN IV PRN ×4 (01:33→17:48)
[2021-01-21] MEDS: METRONIDAZOLE 500 MG TABLET PO SCH ×2 (04:29→12:30)
--- NOTE | 2021-01-21 06:22 | NUR ---
bladder scanned=none.
--- NOTE | 2021-01-21 07:30 | NUR ---
OPENING NOTE RECEIVED PATIENT IN BED, SLEEPING. PATIENT IS ALERT AND ORIENTED X4, ABLE TO MAKE NEEDS KNOWN. PATIENT CURRENTLY HAS R WRIST 24G IV, CURRENTLY RUNNING 0.9NS @75ML/HR. PATIENT HAS A COLOSTOMY BAG IN PLACE. STOMA PINK. PATIENT'S SKIN IS INTACT. CURRENTLY ON CARDIAC DIET, TOLERATING WELL. ALL SAFETY MEASURES IN PLACE PER HOSPITAL POLICY. BED LOCKED IN LOWEST POSITION. CALL LIGHT WITHIN REACH. WILL CONTINUE TO MONITOR AND PROVIDE TREATMENT.
[2021-01-21 08:00] VITALS: BP 140/88
[2021-01-21] MEDS: PANTOPRAZOLE 40 MG TABLET.DR PO SCH (08:35)
[2021-01-21] MEDS: SERTRALINE HCL 50 MG TABLET PO SCH (08:36)
[2021-01-21] MEDS: ALLOPURINOL 100 MG TABLET PO SCH (08:36)
[2021-01-21] MEDS: ATORVASTATIN 10 MG TABLET PO SCH (08:36)
[2021-01-21] MEDS: METOPROLOL TARTRATE 25 MG TABLET PO SCH ×2 (08:37→16:26)
[2021-01-21] MEDS: APIXABAN 5 MG TABLET PO SCH (08:37)
[2021-01-21] MEDS ORDERED: CEPH750C9 PO (10:35)
[2021-01-21 12:00] VITALS: BP 127/81
--- NOTE | 2021-01-21 18:49 | NUR ---
CLOSING NOTE PATIENT IN BED, SLEEPING. PATIENT IS ALERT AND ORIENTED X4, ABLE TO MAKE NEEDS KNOWN. PATIENT CURRENTLY HAS R WRIST 24G IV AND CATHERINE MIDLINE. PATIENT HAS A COLOSTOMY BAG IN PLACE. STOMA PINK. PATIENT'S SKIN IS INTACT. CURRENTLY ON CARDIAC DIET, TOLERATING WELL. PATIENT PENDING DISCHARGE WITH A SET HARNESS INSTALLER TIME AT 1999. ALL SAFETY MEASURES IN PLACE PER HOSPITAL POLICY. BED LOCKED IN LOWEST POSITION. CALL LIGHT WITHIN REACH. WILL ENDORSE TO LENDING ACTIVITIES SUPERVISOR NURSE FOR RAJINDER.
--- NOTE | 2021-01-21 19:00 | NUR ---
RN NOTE RECEIVED PATIENT IN BED, ON SEMI RHODES'S, AO X 4, IN NO S/SX OF ACUTE DISTRESS AT THIS TIME. NO SOB NOTED. PATIENT'S BREATHING IS EVEN AND UNLABORED. SATURATION AT 96% ON ROOM AIR, HR IS 73. NOTED CATHERINE MIDLINE AND R WRIST PERIPHERAL LINE 20G, NO SIGN OF INFECTION NOTED. SAFETY MEASURES IMPLEMENTED. PATIENT BED ALARM IS ON. HEAD OF BED ELEVATED. BED IS LOCKED, IN LOWEST POSITION AND SIDE RAILS UP. CALL LIGHT WITHIN REACH OF THE PATIENT. PATIENT TO BE DISCHARGED HOME PER MD ORDERS. WILL CONTINUE TO MONITOR AND REASSESS FOR ANY CHANGES. AWAITING COMPUTATOR BY AMBULANCE CHEYANNECULED AT 1999.
[2021-01-21 19:50] VITALS: BP 131/70
--- NOTE | 2021-01-21 19:50 | NUR ---
RN NOTE PATIENT DISCHARGED HOME WITH STABLE VITAL SIGNS, ALERT ORIENTED X 4, NO ACUTE DISTRESS NOTED, BREATHING UNLABORED. DISCHARGE INSTRUCTIONS GIVEN TO THE PATIENT INCLUDING NEW PRESCRIPTIONS AND FOLLOW UP WITH PRIMARY DOCTOR, VERBALIZED UNDERSTANDING. ALL BELONGINGS ACCOUNTED FOR, BELONGING LIST SIGNED BY PATIENT, WITNESSED BY MARTÍN FERRARO. IV ACCESS REMOVED, NO REDNESS, NO BLEEDING, NO SWELLING NOTED. REPORT TO ADDIS DELGADILLO, PICKED UP VIA AMBULANCE IN A GURNEY ACCOMPANIED BY 2 EMT PERSONNEL IN STABLE CONDITION. TIN DIPPER AWARE.
[2021-01-21 20:00] VITALS: BP 131/70
== END 2021-01-21 20:00 | disposition home or self-care (01) | DRG 871 ==
LOC: ER 10:07 → TELE1 12:25 → MEDSG1 01-18 08:41
PROVIDERS: ADMIT Student in an Organized Health Care Education/Training Program
PROC: 05H533Z Insertion of Infusion Device into Right Subclavian Vein, Percutaneous Approach (ICD-10-PCS; principal; 2021-01-21)
PROC: B546ZZA Ultrasonography of Right Subclavian Vein, Guidance (ICD-10-PCS; 2021-01-21)
DX: A41.51 Sepsis due to Escherichia coli [E. coli] (principal); N17.0 Acute kidney failure with tubular necrosis; E44.0 Moderate protein-calorie malnutrition; D68.69 Other thrombophilia; E87.1 Hypo-osmolality and hyponatremia; Z68.41 Body mass index [BMI] 40.0-44.9, adult; N10 Acute pyelonephritis; Z20.822 Contact with and (suspected) exposure to COVID-19; E11.22 Type 2 diabetes mellitus with diabetic chronic kidney disease; I13.10 Hypertensive heart and chronic kidney disease without heart failure, with stage 1 through stage 4 chronic kidney disease, or unspecified chronic kidney disease; N18.9 Chronic kidney disease, unspecified; E66.01 Morbid (severe) obesity due to excess calories; E78.5 Hyperlipidemia, unspecified; E87.6 Hypokalemia; I48.91 Unspecified atrial fibrillation; Z79.01 Long term (current) use of anticoagulants; F39 Unspecified mood [affective] disorder; E11.40 Type 2 diabetes mellitus with diabetic neuropathy, unspecified; E88.09 Other disorders of plasma-protein metabolism, not elsewhere classified; N13.9 Obstructive and reflux uropathy, unspecified; Z90.49 Acquired absence of other specified parts of digestive tract; Z93.3 Colostomy status
CPT/HCPCS: 36415; 71045-TC; 80048-TC; 80053-TC; 80061-TC; 80076-TC; 81001; 82962-TC; 83605-TC; 83735-TC; 84100-TC; 84443-TC; 84484-TC; 85025-TC; 85730-TC; 87040-TC; 87081-TC; 87086-TC; 87186-TC; G0378; J0456; J0696; J1815; J2185; J2270; J2405; J3475; J7030; J7040; J7060; U0003

== ENCOUNTER 2021-01-31 17:18 | Emergency (ER) | payer MEDICARE, OTHER ==
[~2021-01-31] VITALS: Ht 182.9 cm; Wt 138.3 kg
[~2021-01-31 17:18] MED LIST changes: +ACET-868 PO; +CEPH750C9 PO; +TRAZ-252 PO
--- NOTE | 2021-01-31 17:18 | NUR ---
PT BIBRA 39 FROM HOME C/O CHEST PAIN, NON RADIATING, NITRO 0.4MG X 1 AND ASA 324MG GIVEN PERCUSSION TUNER. PT IS AAOX4, NOT IN RESPIRATORY DISTRESS, HOOKED TO PRODUCT COMMUNICATIONS MANAGER, KEPT RESTED AND COMFORTABLE. WILL CONTINUE TO MONITOR.
--- NOTE | 2021-01-31 17:22 | NUR ---
IV LINE ESTABLISHED BLOOD DRAWN AND SENT TO LAB.
--- NOTE | 2021-01-31 17:25 | NUR ---
SEEN AND EXAMINED BY .
[2021-01-31 17:41] LABS: BASOPHILS # (AUTO) 0.1 /CMM (0.0-0.2); BASOPHILS % (AUTO) 0.8 % (0.0-2.0); EOSINOPHILS % (AUTO) 1.6 % (0.0-6.0); HEMATOCRIT 44 % (39-51); HEMOGLOBIN 14.4 g/dL (13.5-17.5); LYMPHOCYTES # (AUTO) 1.1 /CMM (0.8-4.8); LYMPHOCYTES % (AUTO) 16.6 % (20.0-44.0); MEAN CORPUSCULAR HGB CONC 33 g/dl (31.0-36.0); MEAN CORPUSCULAR VOLUME 94 fL (80-96); MONOCYTES # (AUTO) 0.9 /CMM (0.1-1.30); MONOCYTES % (AUTO) 13.9 % (2.0-12.0); NEUTROPHILS # (AUTO) 4.5 /CMM (1.8-8.9); NEUTROPHILS % (AUTO) 67.1 % (43.0-81.0); PLATELET COUNT (AUTO) 425 /CMM (150-450); RED BLOOD CELL COUNT(AUTO) 4.67 MIL/uL (4.5-6.0); WHITE BLOOD COUNT (AUTO) 6.8 K/uL (4.3-11.0)
[2021-01-31] MEDS ORDERED: ONDANSETRON HCL/PF 4 MG/2 ML VIAL ONE (17:57)
[2021-01-31] MEDS ORDERED: MORPHINE SULFATE INJ 4 MG/ML DISP.SYRIN ONE (17:57)
[2021-01-31] MEDS ORDERED: MORPHINE SULFATE INJ 2 MG/ML DISP.SYRIN IV ONE (18:00)
[2021-01-31] MEDS ORDERED: ONDANSETRON HCL/PF 4 MG/2 ML VIAL IVP ONE (18:00)
[2021-01-31 18:01] LABS: CALCIUM, SERUM 8.8 mg/dL (8.5-10.1); CARBON DIOXIDE 22 mmol/L (21-32); CHLORIDE 105 mmol/L (98-107); CREATININE 1.5 mg/dL (0.6-1.3); GLUCOSE 174 mg/dL (74-106); POTASSIUM 3.7 mmol/L (3.5-5.1); SODIUM SERUM 137 mmol/L (136-145); UREA NITROGEN, BLOOD 23 mg/dL (7-18)
[2021-01-31 18:24] LABS: ALBUMIN 2.9 g/dL (3.4-5.0); BILIRUBIN,DIRECT 0.1 mg/dL (0.0-0.2); BILIRUBIN,TOTAL 0.5 mg/dL (0.2-1.0); TOTAL PROTEIN, SERUM 7.8 g/dL (6.4-8.2)
--- NOTE | 2021-01-31 18:29 | NUR ---
URINE SPECIMEN COLLECTED AND SENT TO LAB.
[2021-01-31 18:35] LABS: BILIRUBIN,URINE Negative (NEGATIVE); COLOR,URINE YELLOW (YELLOW); LEUKOCYTE ESTERASE ,URINE Trace (NEGATIVE); NITRITE, URINE Negative (NEGATIVE); PROTEIN,URINE Trace mg/dl (NEGATIVE); UGLUCOSE Negative (NEGATIVE); UROBILINOGEN,URINE 0.2 EU/dL (0.2)
[2021-01-31 18:50] LABS: BACTERIA,URINE Few /HPF (None Seen); RBC,URINE NONE SEEN /HPF (0-2); SQUAMOUS EPITHELIAL CELL,UR Few /HPF (None Seen)
[2021-01-31] MEDS ORDERED: HYDROCODONE/APAP 5/325MG TABLET ONE (19:53)
[2021-01-31] MEDS ORDERED: HYDROCODONE/APAP 5/325MG TABLET PO ONE (20:00)
[2021-01-31 20:15] VITALS: BP 110/75
[2021-02-03] MEDS ORDERED: CEPH500T PO (13:16)
[2021-02-03] MEDS ORDERED: AMOX-430 PO (14:16)
== END 2021-01-31 20:16 | disposition home or self-care (01) ==
LOC: ER 17:21
DX: R10.13 Epigastric pain (principal); R30.0 Dysuria; E87.6 Hypokalemia; E87.1 Hypo-osmolality and hyponatremia; I48.91 Unspecified atrial fibrillation; D68.59 Other primary thrombophilia; E78.5 Hyperlipidemia, unspecified; E11.22 Type 2 diabetes mellitus with diabetic chronic kidney disease; I12.9 Hypertensive chronic kidney disease with stage 1 through stage 4 chronic kidney disease, or unspecified chronic kidney disease; N18.9 Chronic kidney disease, unspecified; E66.01 Morbid (severe) obesity due to excess calories; F10.10 Alcohol abuse, uncomplicated; G62.9 Polyneuropathy, unspecified; Y90.0 Blood alcohol level of less than 20 mg/100 ml; Z68.41 Body mass index [BMI] 40.0-44.9, adult; Z90.49 Acquired absence of other specified parts of digestive tract; Z79.899 Other long term (current) drug therapy
CPT/HCPCS: 36415; 71045; 80048; 80076; 80320; 81001; 83605; 83690; 84145; 84484; 85025; 85730; 87040; 87086; 93005 ×3; 96374; 96375; 99285; J2270; J2405; G0480

== ENCOUNTER 2021-02-02 20:10 | Inpatient (IN) | payer MEDICARE, MEDICAID ==
[~2021-02-02] VITALS: Ht 182.9 cm; Wt 136.5 kg
[~2021-02-02 20:10] MED LIST changes: -CEPH750C9 PO
--- NOTE | 2021-02-02 20:20 | NUR ---
BIBRA 39 FOR C/O MIDSTERNAL NON- RADIATING SHARP CP X TODAY. NO SOB, -N/V, + OCCASIONAL DIZZINESS. PT ALSO WITH C/O DYSURIA WHICH STARTED TODAY. PER PT HE HAD JUST COMPLETED A DOSE OF KEFLEX FOR UTI. PT WAS TRANSFERRED TO BED 2, ON MONITOR. VSS. WILL CONT TO MONITOR
--- NOTE | 2021-02-02 20:31 | NUR ---
DR OSEGUERA AT BED SIDE
[2021-02-02 20:32] LABS: BASOPHILS # (AUTO) 0.1 /CMM (0.0-0.2); BASOPHILS % (AUTO) 0.9 % (0.0-2.0); EOSINOPHILS % (AUTO) 2.1 % (0.0-6.0); HEMATOCRIT 44 % (39-51); HEMOGLOBIN 14.3 g/dL (13.5-17.5); LYMPHOCYTES # (AUTO) 1.2 /CMM (0.8-4.8); LYMPHOCYTES % (AUTO) 19.9 % (20.0-44.0); MEAN CORPUSCULAR HGB CONC 33 g/dl (31.0-36.0); MEAN CORPUSCULAR VOLUME 94 fL (80-96); MONOCYTES # (AUTO) 0.7 /CMM (0.1-1.30); MONOCYTES % (AUTO) 11.4 % (2.0-12.0); NEUTROPHILS % (AUTO) 65.7 % (43.0-81.0); PLATELET COUNT (AUTO) 353 /CMM (150-450); RED BLOOD CELL COUNT(AUTO) 4.64 MIL/uL (4.5-6.0); WHITE BLOOD COUNT (AUTO) 6.1 K/uL (4.3-11.0)
--- NOTE | 2021-02-02 20:35 | NUR ---
RAD AT BED SIDE
[2021-02-02 20:44] LABS: BILIRUBIN,URINE Negative (NEGATIVE); COLOR,URINE YELLOW (YELLOW); LEUKOCYTE ESTERASE ,URINE Trace (NEGATIVE); NITRITE, URINE Negative (NEGATIVE); PH,URINE 5.5 (5.0-8.0); PROTEIN,URINE Negative (NEGATIVE); UGLUCOSE Negative (NEGATIVE); UROBILINOGEN,URINE 0.2 EU/dL (0.2)
[2021-02-02] MEDS ORDERED: ONDANSETRON HCL/PF 4 MG/2 ML VIAL ONE (20:54)
[2021-02-02 20:57] LABS: RBC,URINE 0-2 /HPF (0-2)
[2021-02-02 20:58] LABS: ALANINE AMINOTRANSFERASE 42 U/L (12-78); ALBUMIN 3.1 g/dL (3.4-5.0); ALKALINE PHOSPHATASE 79 U/L (46-116); ASPARTATE AMINOTRANSFERASE 29 U/L (15-37); B-TYPE NATRIURETIC PEPTIDE 655 PG/ML (0-125); BILIRUBIN,DIRECT 0.1 mg/dL (0.0-0.2); BILIRUBIN,TOTAL 0.3 mg/dL (0.2-1.0); CALCIUM, SERUM 8.8 mg/dL (8.5-10.1); CARBON DIOXIDE 26 mmol/L (21-32); CHLORIDE 103 mmol/L (98-107); CREATININE 1.3 mg/dL (0.6-1.3); GLUCOSE 157 mg/dL (74-106); POTASSIUM 3.8 mmol/L (3.5-5.1); SODIUM SERUM 139 mmol/L (136-145); TOTAL PROTEIN, SERUM 7.9 g/dL (6.4-8.2); UREA NITROGEN, BLOOD 23 mg/dL (7-18)
[2021-02-02 20:58] LABS: BACTERIA,URINE Rare /HPF (None Seen)
[2021-02-02] MEDS ORDERED: ONDANSETRON HCL/PF - ER 4 MG/2 ML VIAL IV ONE (21:00)
[2021-02-02] MEDS ORDERED: MORPHINE SULFATE INJ 2 MG/ML DISP.SYRIN IV ONE (21:30)
--- NOTE | 2021-02-02 22:53 | NUR ---
REPORT GIVEN TO JESSE
[2021-02-02] MEDS ORDERED: ACETAMINOPHEN 325 MG TABLET PO PRN (23:00)
[2021-02-02] MEDS ORDERED: Z GUARD REMEDY 2 OZ OINT TP PRN (23:00)
[2021-02-02] MEDS ORDERED: TRAMADOL HCL 50 MG TABLET PO PRN (23:00)
[2021-02-02] MEDS ORDERED: TRAZODONE 50 MG TABLET PO PRN (23:00)
[2021-02-02] MEDS ORDERED: ZOLPIDEM TARTRATE 5 MG TABLET PO PRN (23:00)
[2021-02-02] MEDS ORDERED: ALBUTEROL SULFATE INH 18 GM HFA.AER.AD IH PRN (23:00)
[2021-02-02] MEDS ORDERED: ONDANSETRON HCL/PF 4 MG/2 ML VIAL IVP PRN (23:00)
--- NOTE | 2021-02-02 23:10 | NUR ---
pt was transferred to 322 under ACLS
[2021-02-02 23:15] VITALS: BP 121/72
--- NOTE | 2021-02-02 23:30 | NUR ---
ADMISSION NOTE PATIENT ADMITTED FOR CHEST PAIN TO [facility]. NEW ORDERS RECIEVED. PATIENT IN RM. 322 BED 2 TELE APPLIED AFIB 72. REPORTING HE HAS MID SUBSTERNAL CHEST PAIN THAT GOES TO HIS UPPER MID ABD RATED 8/10. PATIENT LAYING IN BED HAS FLAT EXPRESSION NO FACIAL GRIMACING, APPEARS RELAXED IN BED. IN NO APPARENT DISTRESS. RESP EVEN AND UNLABORED. DENIES SOB. PATIENT ORIENTED TO ROOM. ADMISSION ASSESSMENT PERFORMED. COLOSTOMY BAG PRESENT, BAG CHANGED BY PATIENT WITH SOME ASSISTANCE. DRAINING SEMIFORMED LIQUID BROWN STOOL . PT AMBULATORY, FALL PRECAUTIONS IN PLACE BED ALARM ACTIVE BED DOWN LOCKED SRX2. VERBALIZED UNDERSTANDING TO CALL FOR ASSISTANCE IF NEEDED.
[2021-02-02] MEDS: MORPHINE SULFATE INJ 2 MG/ML DISP.SYRIN IV PRN (23:53)
[2021-02-03] MEDS: MORPHINE SULFATE INJ 2 MG/ML DISP.SYRIN IV PRN ×4 (03:59→16:44)
[2021-02-03 04:00] VITALS: BP 127/82
--- NOTE | 2021-02-03 06:40 | NUR ---
RN CLOSING NOTE TELE. PT IN BED NO APPARENT DISTRESS. ON RA DENIES SOB. REVIEWED PAIN MANAGEMENT PLAN WITH PATIENT. QUESTIONS CONCERNS ADDRESSED. REPORTS HE IS HAVING SOME RELIEF WITH MORPHINE BUT ONLY DULLS THE PAIN. TELE MONITOR. HR 62 AFIB. BED DOWN LOCKED SRX2 WILL ENDORSE TO ONCOMING SHIFT.
--- NOTE | 2021-02-03 07:15 | NUR ---
PT RECEIVED RESTING COMFORTABLY IN BED WITH EYES CLOSED. NO S/S OR C/O PAIN OR DISTRESS NOTED. SIDE RAILS UP X2, CALL LIGHT LEFT WITHIN REACH. WILL CONTINUE PLAN OF CARE.
[2021-02-03] MEDS ORDERED: PANTOPRAZOLE 40 MG TABLET.DR PO SCH (07:30)
[2021-02-03 08:00] VITALS: BP 146/72
[2021-02-03] MEDS: METOPROLOL TARTRATE 25 MG TABLET PO SCH ×2 (08:20→17:00)
[2021-02-03] MEDS: APIXABAN 5 MG TABLET PO SCH ×2 (08:24→17:00)
[2021-02-03] MEDS ORDERED: SERTRALINE HCL 50 MG TABLET PO SCH (09:00)
[2021-02-03] MEDS ORDERED: ALLOPURINOL 100 MG TABLET PO SCH (09:00)
[2021-02-03] MEDS ORDERED: FUROSEMIDE 40 MG TABLET PO SCH (09:00)
[2021-02-03 09:15] LABS: BASOPHILS # (AUTO) 0.1 /CMM (0.0-0.2); EOSINOPHILS % (AUTO) 4.1 % (0.0-6.0); HEMATOCRIT 43 % (39-51); HEMOGLOBIN 13.9 g/dL (13.5-17.5); LYMPHOCYTES # (AUTO) 1.4 /CMM (0.8-4.8); LYMPHOCYTES % (AUTO) 24.7 % (20.0-44.0); MEAN CORPUSCULAR HGB CONC 33 g/dl (31.0-36.0); MEAN CORPUSCULAR VOLUME 94 fL (80-96); MONOCYTES # (AUTO) 0.6 /CMM (0.1-1.30); MONOCYTES % (AUTO) 11.6 % (2.0-12.0); NEUTROPHILS # (AUTO) 3.2 /CMM (1.8-8.9); NEUTROPHILS % (AUTO) 58.6 % (43.0-81.0); PLATELET COUNT (AUTO) 290 /CMM (150-450); RED BLOOD CELL COUNT(AUTO) 4.54 MIL/uL (4.5-6.0); WHITE BLOOD COUNT (AUTO) 5.5 K/uL (4.3-11.0)
[2021-02-03 09:20] LABS: BILIRUBIN,TOTAL 0.3 mg/dL (0.2-1.0); CALCIUM, SERUM 9.6 mg/dL (8.5-10.1); CREATININE 0.9 mg/dL (0.6-1.3); MAGNESIUM 2.2 mg/dL (1.8-2.4); PHOSPHORUS 3.7 mg/dL (2.5-4.9); TOTAL PROTEIN, SERUM 7.4 g/dL (6.4-8.2)
[2021-02-03] MEDS ORDERED: CEPH500T PO (13:16)
[2021-02-03] MEDS ORDERED: AMOX-430 PO (14:16)
[2021-02-03 16:00] VITALS: BP 112/61
--- NOTE | 2021-02-03 17:32 | NUR ---
MS RN NOTES HELD METOPROLOL BP 112/61.
--- NOTE | 2021-02-03 17:59 | NUR ---
RN NOTES PATIENT IS ALERT AND ORIENTED X4. PATIENT IN ROOM AIR SATURATION 98%. PATIENT IN NO APPARENT RESPIRATORY DISTRESS NOTED. NO COMPLAINED OF PAIN NOTED AT THIS TIME. SEEN AND EXAMINED BY MD WITH ORDERS MADE AND CARRIED OUT. ALL DUE MEDICATIONS WAS GIVEN. DISCHARGED INSTRUCTIONS WAS GIVEN AND PATIENT VERBALIZED UNDERSTANDING. PATIENT LEFT THE HOSPITAL IN MEDICALLY STABLE CONDITIONS, AMBULATORY AND SELF CARE. BUS PASS WAS GIVEN.
[2021-02-03] MEDS ORDERED: ATORVASTATIN 10 MG TABLET PO SCH (22:00)
[2021-02-03] MEDS ORDERED: TAMSULOSIN 0.4 MG CAP.SR.24H PO SCH (22:00)
[2021-02-03] MEDS ORDERED: PREGABALIN 25 MG CAPSULE PO SCH (22:00)
[2021-02-04 08:06] LABS: *SPE A/G RATIO 0.8 (0.7-1.7); *SPE ALBUMIN 2.9 g/dL (2.9-4.4); *SPE ALPHA-1-GLOBULIN 0.2 g/dL (0.0-0.4); *SPE ALPHA-2-GLOBULIN 0.8 g/dL (0.4-1.0); *SPE BETA GLOBULIN 1.2 g/dL (0.7-1.3); *SPE GLOBULIN, TOTAL 3.8 g/dL (2.2-3.9); *SPE M-SPIKE Not Observed g/dL (Not Observed); *SPEGAMMA GLOBULIN 1.5 g/dL (0.4-1.8)
== END 2021-02-03 17:20 | disposition home or self-care (01) | DRG 313 ==
LOC: ER 20:13 → TELE 22:34 → MED 02-03 08:49
PROVIDERS: ADMIT Nurse Practitioner Acute Care; ATTEND Registered Nurse
DX: R07.89 Other chest pain (principal); D68.59 Other primary thrombophilia; N30.00 Acute cystitis without hematuria; J98.11 Atelectasis; F32.9 Major depressive disorder, single episode, unspecified; I12.9 Hypertensive chronic kidney disease with stage 1 through stage 4 chronic kidney disease, or unspecified chronic kidney disease; I48.91 Unspecified atrial fibrillation; Z20.822 Contact with and (suspected) exposure to COVID-19; N18.9 Chronic kidney disease, unspecified; Z93.3 Colostomy status; N40.0 Benign prostatic hyperplasia without lower urinary tract symptoms; E11.40 Type 2 diabetes mellitus with diabetic neuropathy, unspecified; E11.22 Type 2 diabetes mellitus with diabetic chronic kidney disease; Z90.49 Acquired absence of other specified parts of digestive tract; Z79.51 Long term (current) use of inhaled steroids; Z79.899 Other long term (current) drug therapy; E78.5 Hyperlipidemia, unspecified; Z79.01 Long term (current) use of anticoagulants; E66.9 Obesity, unspecified; Z82.49 Family history of ischemic heart disease and other diseases of the circulatory system; Z87.19 Personal history of other diseases of the digestive system; B96.89 Other specified bacterial agents as the cause of diseases classified elsewhere; I34.0 Nonrheumatic mitral (valve) insufficiency; R79.89 Other specified abnormal findings of blood chemistry; T50.2X5A Adverse effect of carbonic-anhydrase inhibitors, benzothiadiazides and other diuretics, initial encounter; Y92.9 Unspecified place or not applicable
CPT/HCPCS: 36415; 71045-TC; 80048-TC; 80053-TC; 80061-TC; 80076-TC; 81001; 83605-TC; 83690-TC; 83735-TC; 83880; 84100-TC; 84155; 84165; 84484-TC; 85025-TC; 85730-TC; 87040-TC; 87081-TC; 87086-TC; C9803; G0378; G0480; J2270; J2405

== ENCOUNTER 2021-02-20 22:06 | Emergency (ER) | payer MEDICARE, OTHER ==
[~2021-02-20] VITALS: Ht 182.9 cm; Wt 136.1 kg
[~2021-02-20 22:06] MED LIST changes: +AMOX-430 PO
--- NOTE | 2021-02-20 22:08 | NUR ---
MITCHRA 89 FROM HOME FOR C/O MIDSTERNAL SHARP PAIN 5/10 X 5 HRS, NON RADIATING, PT AAOX4, DENIES SOB. PLACED ON MONITOR, GOWNED, PIV STARTED, PENDING ER PROVIDER ANTHONY
[2021-02-20 22:46] LABS: BASOPHILS % (AUTO) 0.7 % (0.0-2.0); EOSINOPHILS % (AUTO) 3.4 % (0.0-6.0); HEMATOCRIT 43 % (39-51); HEMOGLOBIN 13.9 g/dL (13.5-17.5); LYMPHOCYTES # (AUTO) 1.2 /CMM (0.8-4.8); LYMPHOCYTES % (AUTO) 17.5 % (20.0-44.0); MEAN CORPUSCULAR HGB CONC 33 g/dl (31.0-36.0); MEAN CORPUSCULAR VOLUME 95 fL (80-96); MONOCYTES # (AUTO) 0.9 /CMM (0.1-1.30); MONOCYTES % (AUTO) 12.6 % (2.0-12.0); NEUTROPHILS # (AUTO) 4.6 /CMM (1.8-8.9); NEUTROPHILS % (AUTO) 65.8 % (43.0-81.0); PLATELET COUNT (AUTO) 246 /CMM (150-450); RED BLOOD CELL COUNT(AUTO) 4.49 MIL/uL (4.5-6.0); WHITE BLOOD COUNT (AUTO) 7.1 K/uL (4.3-11.0)
[2021-02-20 22:51] LABS: CALCIUM, SERUM 8.2 mg/dL (8.5-10.1); CARBON DIOXIDE 24 mmol/L (21-32); CHLORIDE 107 mmol/L (98-107); CREATININE 1.3 mg/dL (0.6-1.3); GLUCOSE 116 mg/dL (74-106); POTASSIUM 4.4 mmol/L (3.5-5.1); SODIUM SERUM 138 mmol/L (136-145); UREA NITROGEN, BLOOD 15 mg/dL (7-18)
[2021-02-20] MEDS ORDERED: ONDA4TAB11 PO (23:22)
--- NOTE | 2021-02-21 00:03 | NUR ---
Patient discharged to home in stable condition. Written and verbal after care instructions given. Patient verbalizes understanding of instruction.IV removed. Catheter intact and site benign. Pressure and 4x4 applied to site. No bleeding noted.
[2021-02-21 00:20] VITALS: BP 109/52
== END 2021-02-21 00:20 | disposition home or self-care (01) ==
LOC: ER 22:07
DX: R07.89 Other chest pain (principal); R11.2 Nausea with vomiting, unspecified; I10 Essential (primary) hypertension; I48.91 Unspecified atrial fibrillation; E11.40 Type 2 diabetes mellitus with diabetic neuropathy, unspecified; Z93.3 Colostomy status; Z79.899 Other long term (current) drug therapy
CPT/HCPCS: 36415; 71045-TC; 80048-TC; 84484-TC; 85025-TC

== ENCOUNTER 2021-04-09 21:36 | Inpatient (IN) | payer MEDICARE, OTHER ==
[~2021-04-09] VITALS: Ht 182.9 cm; Wt 141.1 kg
[~2021-04-09 21:36] MED LIST changes: +ONDA4TAB11 PO
--- NOTE | 2021-04-09 21:46 | NUR ---
PT AAOX4. BIBRA FROM HOME C/O NONRADAITING MIDSTERNAL CP SINCE YESTERDAY, WORSE THIS MORNING. PLACED IN BED 10 ON SMOKING PIPE COATER AND PULSE OX. VSS.
[2021-04-09 22:22] LABS: BASOPHILS # (AUTO) 0.1 /CMM (0.0-0.2); BASOPHILS % (AUTO) 0.8 % (0.0-2.0); EOSINOPHILS % (AUTO) 5.1 % (0.0-6.0); HEMATOCRIT 39 % (39-51); HEMOGLOBIN 12.7 g/dL (13.5-17.5); LYMPHOCYTES # (AUTO) 1.4 /CMM (0.8-4.8); LYMPHOCYTES % (AUTO) 19.1 % (20.0-44.0); MEAN CORPUSCULAR HGB CONC 33 g/dl (31.0-36.0); MEAN CORPUSCULAR VOLUME 96 fL (80-96); MONOCYTES % (AUTO) 14.1 % (2.0-12.0); NEUTROPHILS # (AUTO) 4.3 /CMM (1.8-8.9); NEUTROPHILS % (AUTO) 60.9 % (43.0-81.0); PLATELET COUNT (AUTO) 217 /CMM (150-450); RED BLOOD CELL COUNT(AUTO) 4.01 MIL/uL (4.5-6.0); WHITE BLOOD COUNT (AUTO) 7.1 K/uL (4.3-11.0)
[2021-04-09 22:27] LABS: CALCIUM, SERUM 8.8 mg/dL (8.5-10.1); CARBON DIOXIDE 27 mmol/L (21-32); CHLORIDE 106 mmol/L (98-107); CREATININE 1.5 mg/dL (0.6-1.3); GLUCOSE 114 mg/dL (74-106); POTASSIUM 4.1 mmol/L (3.5-5.1); SODIUM SERUM 140 mmol/L (136-145); UREA NITROGEN, BLOOD 20 mg/dL (7-18)
--- NOTE | 2021-04-09 22:32 | NUR ---
SHAINAID SWABBED, SENT TO LAB.
[2021-04-09] MEDS ORDERED: MORPHINE SULFATE INJ 4 MG/ML DISP.SYRIN ONE (22:37)
[2021-04-09] MEDS ORDERED: ONDANSETRON HCL/PF 4 MG/2 ML VIAL ONE (22:37)
--- NOTE | 2021-04-09 22:59 | NUR ---
PANEL PAGED PER ER MD ORDER.
[2021-04-09] MEDS ORDERED: ONDANSETRON HCL/PF 4 MG/2 ML VIAL IV ONE (23:00)
[2021-04-09] MEDS ORDERED: MORPHINE SULFATE INJ 2 MG/ML DISP.SYRIN IV ONE (23:00)
--- NOTE | 2021-04-09 23:09 | NUR ---
TELE 308-3
--- NOTE | 2021-04-09 23:28 | NUR ---
REPORT GIVEN TO RN FOR RAJINDER
[2021-04-10 00:15] VITALS: BP 141/76
--- NOTE | 2021-04-10 00:30 | NUR ---
AEROSPACE QUALITY ENGINEERTRUER PINION AND WHEEL NOTE Patient is A&Ox4. VSS. Patient states pain has improved since medication administration in ER. C/o 12/15 chest pain. No respiratory distress noted. Heart rhythm irregular shows Afib. Lung sounds clear throughout. +1 pitting edema to BLE. Patient has colostomy bag, redness and moisture to bilateral groin folds, R abdominal fold, and peristoma. Weight 326 pounds. Patient verbalizes only complaint as chest pain.
--- NOTE | 2021-04-10 01:22 | NUR ---
Obtained order from MD for cardiac diet for patient.
[2021-04-10 02:09] VITALS: BP 141/76
[2021-04-10] MEDS ORDERED: ALBUTEROL SULFATE INH 18 GM HFA.AER.AD IH PRN (03:00)
[2021-04-10] MEDS ORDERED: Z GUARD REMEDY 2 OZ OINT TP PRN (03:00)
[2021-04-10] MEDS ORDERED: BUMETANIDE INJ 8 MG in IV NS 0.9% 48 ML IV ONE (03:00)
[2021-04-10] MEDS ORDERED: ONDANSETRON HCL/PF 4 MG/2 ML VIAL IVP PRN (03:00)
[2021-04-10] MEDS ORDERED: ACETAMINOPHEN 325 MG TABLET PO PRN (03:00)
[2021-04-10] MEDS ORDERED: ALBUTEROL FS 2.5 MG/3 ML VIAL.NEB NEB PRN (03:30)
[2021-04-10] MEDS ORDERED: BUMETANIDE INJ 0.25 MG/ML VIAL ONE ×2 (03:54→03:57)
[2021-04-10] MEDS: HYDROCODONE/APAP 10/325MG TABLET PO PRN ×4 (04:34→18:20)
[2021-04-10 04:59] VITALS: BP 115/67
[2021-04-10 06:43] LABS: BASOPHILS % (AUTO) 0.7 % (0.0-2.0); EOSINOPHILS % (AUTO) 7.3 % (0.0-6.0); HEMATOCRIT 39 % (39-51); HEMOGLOBIN 12.6 g/dL (13.5-17.5); LYMPHOCYTES # (AUTO) 1.4 /CMM (0.8-4.8); LYMPHOCYTES % (AUTO) 22.3 % (20.0-44.0); MEAN CORPUSCULAR HGB CONC 33 g/dl (31.0-36.0); MEAN CORPUSCULAR VOLUME 97 fL (80-96); MONOCYTES % (AUTO) 15.4 % (2.0-12.0); NEUTROPHILS # (AUTO) 3.5 /CMM (1.8-8.9); NEUTROPHILS % (AUTO) 54.3 % (43.0-81.0); PLATELET COUNT (AUTO) 203 /CMM (150-450); RED BLOOD CELL COUNT(AUTO) 4.01 MIL/uL (4.5-6.0); WHITE BLOOD COUNT (AUTO) 6.5 K/uL (4.3-11.0)
--- NOTE | 2021-04-10 07:25 | NUR ---
INSTRUCTIONAL MATERIALS DIRECTOR closing notes A&Ox4. Patient shows afib on monitor. Medicated at 0434 for 8/10 chest pain which was relieved and went down to 2/10. Slept well throughout the night. IV bumex infusing at 10cc/hr as ordered. Output 1500cc, intake 400cc.
--- NOTE | 2021-04-10 07:25 | NUR ---
JOINTER OPERATOR NOTE RECEIVED PATIENT IN BED RESTING. PATIENT IS A/O X 4. PATIENT IS BREATHING EVENLY AND NONLABORED ON ROOM AIR. NO SIGNS OF DISTRESS NOTED. NO COMPLAINTS OF PAIN AT THIS TIME. PATIENT HAS IV ACCESS RAC # 18 GAUGE RUNNING BUMEX @ 10 ML/HR. IV ACCESS PATENT AND INTACT. PATIENT HAS ASSOCIATE PATHOLOGIST SHOWING AFIB @ 60 BPM. PATIENT IS NOTED WITH COLOSTOMY IN PLACE. SAFETY MEASURES ARE IN PLACE, BED ALARM ON, BED LOW LOCKED AND CALL LIGHT WITHIN REACH. WILL CONTINUE TO MONITOR
[2021-04-10] MEDS ORDERED: OMEPRAZOLE 20 MG CAPSULE.DR PO SCH (07:30)
[2021-04-10 07:49] LABS: CALCIUM, SERUM 8.6 mg/dL (8.5-10.1); CREATININE 1.3 mg/dL (0.6-1.3); MAGNESIUM 1.6 mg/dL (1.8-2.4); PHOSPHORUS 4.9 mg/dL (2.5-4.9); POTASSIUM 3.7 mmol/L (3.5-5.1)
[2021-04-10 08:00] VITALS: BP 151/87
[2021-04-10] MEDS: SERTRALINE HCL 50 MG TABLET PO SCH (08:09)
[2021-04-10] MEDS: FUROSEMIDE 40 MG TABLET PO SCH (08:09)
[2021-04-10] MEDS: PANTOPRAZOLE 40 MG TABLET.DR PO SCH (08:09)
[2021-04-10] MEDS: METOPROLOL TARTRATE 25 MG TABLET PO SCH ×2 (08:09→16:42)
[2021-04-10] MEDS: ALLOPURINOL 100 MG TABLET PO SCH (08:10)
[2021-04-10] MEDS: APIXABAN 5 MG TABLET PO SCH ×2 (08:12→16:39)
[2021-04-10 08:14] LABS: EOSINOPHILS % (MANUAL) 10 % (0-4); LYMPHOCYTES % (MANUAL) 18 % (16-48); MONOCYTES % (MANUAL) 12 % (0-11.0); NEUTROPHILS % (MANUAL) 60 (42-76)
[2021-04-10] MEDS ORDERED: PRAVASTATIN SODIUM 20 MG TABLET PO SCH (09:00)
--- NOTE | 2021-04-10 10:28 | NUR ---
RN NOTE PATIENT COMPLAINED OF SEVERE PAIN 07/15. PATIENT ASKED FOR PRN PAIN MEDICATION. PAIN MEDICATION ADMINISTERED ORDERED. WILL CONTINUE TO MONITOR AND REASSESS
[2021-04-10] MEDS: Magnesium 1GM/D5W 100ML PREMIX 100 ML IV SCH ×2 (11:33→12:35)
--- NOTE | 2021-04-10 12:39 | NUR ---
RN NOTES PATIENT COMPLAINED OF HEADACHE. PATIENT ASKED FOR PRN TYLENOL. WILL GIVE PRN MEDICATION AND REASSESS.
--- NOTE | 2021-04-10 13:47 | NUR ---
RN NOTE PATIENT WAS SEEN BY DOCTOR. PATIENT WILL BE SCHEDULED FOR EGD PROCEDURE TOMORROW BY DR GREEN. PATIENT WILL BE NPO AFTER MIDNIGHT. PATIENT AGREED. WILL CONTINUE TO MONITOR
--- NOTE | 2021-04-10 14:27 | NUR ---
RN NOTE PATIENT COMPLAINED OF SEVERE PAIN 07/15. PATIENT ASKED FOR PRN PAIN MEDICATION. PAIN MEDICATION ADMINISTERED ORDERED. WILL CONTINUE TO MONITOR AND REASSESS
[2021-04-10 16:00] VITALS: BP 125/75
--- NOTE | 2021-04-10 18:21 | NUR ---
RN NOTE PATIENT COMPLAINED OF SEVERE PAIN 07/15. PATIENT ASKED FOR PRN PAIN MEDICATION. PAIN MEDICATION ADMINISTERED ORDERED. WILL CONTINUE TO MONITOR AND REASSESS
--- NOTE | 2021-04-10 18:37 | NUR ---
MS RN CLOSING NOTE PATIENT IN BED RESTING. PATIENT IS A/O X 4. PATIENT IS BREATHING EVENLY AND NONLABORED STABLE ON ROOM AIR. NO SIGNS OF DISTRESS NOTED. NO COMPLAINTS OF PAIN AT THIS TIME, LAST PAIN MEDICATION WAS GIVEN @ 1822. PATIENT HAS IV ACCESS RAC # 18 GAUGE PATENT AND INTACT. IV ACCESS PATENT AND INTACT. PATIENT IS NOTED WITH COLOSTOMY IN PLACE. PATIENT WILL HAVE EGD PROCEDURE TOMORROW AND NEEDS TO BE NPO AFTER MIDNIGHT. ALL MEDICATION GIVEN ORDERED. SAFETY MEASURES ARE IN PLACE, SIDE RAILS UP, BED ALARM ON, BED LOW LOCKED AND CALL LIGHT WITHIN REACH. WILL ENDORSE TO ONCOMING SHIFT
--- NOTE | 2021-04-10 19:29 | NUR ---
MS RN NOTES PATIENT IN BED RESTING. PATIENT IS A/O X 4. PATIENT IS BREATHING EVENLY AND NONLABORED STABLE ON ROOM AIR. NO SIGNS OF DISTRESS NOTED. NO COMPLAINTS OF PAIN AT THIS TIME. PATIENT HAS IV ACCESS RAC # 18 GAUGE PATENT AND INTACT.PATIENT IS NOTED WITH COLOSTOMY IN PLACE. PATIENT WILL HAVE EGD PROCEDURE TOMORROW AND NEEDS TO BE NPO AFTER MIDNIGHT PT AWARE. SAFETY MEASURES ARE IN PLACE, SIDE RAILS UP, BED ALARM ON, BED LOW LOCKED AND CALL LIGHT WITHIN REACH. WILL CONTINUE TO MONITOR.
[2021-04-10 20:00] VITALS: BP 115/73
[2021-04-10] MEDS: ATORVASTATIN 10 MG TABLET PO SCH (21:24)
[2021-04-10] MEDS: TAMSULOSIN 0.4 MG CAP.SR.24H PO SCH (21:24)
[2021-04-10] MEDS: PREGABALIN 25 MG CAPSULE PO SCH (21:24)
[2021-04-10] MEDS: TRAZODONE 50 MG TABLET PO PRN (21:35)
--- NOTE | 2021-04-11 06:40 | NUR ---
MS RN NOTES PATIENT IN BED RESTING. PATIENT IS A/O X 4. PATIENT IS BREATHING EVENLY AND NONLABORED STABLE ON ROOM AIR. NO SIGNS OF DISTRESS NOTED. NO COMPLAINTS OF PAIN AT THIS TIME. PATIENT HAS IV ACCESS RAC # 18 GAUGE PATENT AND INTACT.PATIENT IS NOTED WITH COLOSTOMY IN PLACE. PATIENT HAS BEEN NPO SINCE MIDNIGHT FOR EGD PROCEDURE TODAY.. SAFETY MEASURES ARE IN PLACE, SIDE RAILS UP, BED ALARM ON, BED LOW LOCKED AND CALL LIGHT WITHIN REACH. WILL ENDORSE CARE TO DAY SHIFT NURSE.
[2021-04-11 07:02] LABS: BASOPHILS # (AUTO) 0.1 /CMM (0.0-0.2); EOSINOPHILS % (AUTO) 9.1 % (0.0-6.0); HEMATOCRIT 42 % (39-51); HEMOGLOBIN 13.6 g/dL (13.5-17.5); LYMPHOCYTES % (AUTO) 16.3 % (20.0-44.0); MEAN CORPUSCULAR HGB CONC 33 g/dl (31.0-36.0); MEAN CORPUSCULAR VOLUME 97 fL (80-96); MONOCYTES # (AUTO) 0.8 /CMM (0.1-1.30); MONOCYTES % (AUTO) 13.1 % (2.0-12.0); NEUTROPHILS # (AUTO) 3.8 /CMM (1.8-8.9); NEUTROPHILS % (AUTO) 60.5 % (43.0-81.0); PLATELET COUNT (AUTO) 196 /CMM (150-450); WHITE BLOOD COUNT (AUTO) 6.3 K/uL (4.3-11.0)
--- NOTE | 2021-04-11 07:11 | NUR ---
MS RN OPENING NOTES PATIENT IN BED RESTING. PATIENT IS A/O X 4. PATIENT IS BREATHING EVENLY AND NONLABORED STABLE ON ROOM AIR. NO SIGNS OF DISTRESS NOTED. NO COMPLAINTS OF PAIN AT THIS TIME. PATIENT HAS IV ACCESS RAC # 18 GAUGE PATENT AND INTACT.PATIENT IS NOTED WITH COLOSTOMY IN PLACE. PATIENT HAS BEEN NPO SINCE MIDNIGHT, AWAITING EGD PROCEDURE. SAFETY MEASURES ARE IN PLACE, SIDE RAILS UP, BED ALARM ON, BED LOW LOCKED AND CALL LIGHT WITHIN REACH. WILL CONTINUE TO MONITOR.
[2021-04-11 07:33] LABS: CALCIUM, SERUM 8.8 mg/dL (8.5-10.1); CREATININE 1.2 mg/dL (0.6-1.3); MAGNESIUM 2.1 mg/dL (1.8-2.4); PHOSPHORUS 4.2 mg/dL (2.5-4.9); POTASSIUM 3.7 mmol/L (3.5-5.1)
[2021-04-11] MEDS: PANTOPRAZOLE 40 MG TABLET.DR PO SCH (07:51)
[2021-04-11 08:00] VITALS: BP 127/57
[2021-04-11] MEDS: METOPROLOL TARTRATE 25 MG TABLET PO SCH ×2 (08:18→16:28)
[2021-04-11] MEDS: FUROSEMIDE 40 MG TABLET PO SCH (08:18)
[2021-04-11] MEDS: ALLOPURINOL 100 MG TABLET PO SCH (08:18)
[2021-04-11] MEDS: SERTRALINE HCL 50 MG TABLET PO SCH (08:18)
[2021-04-11] MEDS: HYDROCODONE/APAP 10/325MG TABLET PO PRN ×2 (08:19→20:26)
--- NOTE | 2021-04-11 08:20 | NUR ---
RN NOTE PATIENT COMPLAINED OF SEVERE PAIN 07/15. PATIENT ASKED FOR PRN PAIN MEDICATION. PAIN MEDICATION ADMINISTERED ORDERED. WILL CONTINUE TO MONITOR AND REASSESS
[2021-04-11] MEDS: APIXABAN 5 MG TABLET PO SCH ×2 (08:21→16:27)
--- NOTE | 2021-04-11 09:30 | NUR ---
WOUND CARE CONSULT: PT PRESENTS WITH REDNESS/RASH TO RT BUTTOCK AND TO ABDOMINAL/GROIN FOLDS, PRESENT ON ADMISSION. COLOSTOMY POUCH NOTED TO BE PATENT AT THIS TIME. RECOMMENDATIONS MADE FOR SKIN PROTECTION. DISCUSSED WITH NURSING STAFF. PT DEMONSTRATES ABILITY TO TURN AND REPOSITION IN BED. MD IN AGREEMENT WITH PLAN OF CARE. Addendum: 04/11/21 at 0935 by JASON MILLER WNDNU CURRENT MERARY SCORE IS 17. PT [facility] ON [facility] LOW AIRLOSS BED.
[2021-04-11 16:00] VITALS: BP 105/70
[2021-04-11] MEDS: CLOTRIMAZOLE 1% 15 GM TUBE TP SCH (16:29)
[2021-04-11] MEDS ORDERED: ANESTHESIA TRAY IN PYXIS 1 EA TRAY MC ONE (17:24)
--- NOTE | 2021-04-11 17:50 | NUR ---
RN NOTE PATIENT LEFT FOR EGD PROCEDURE.
--- NOTE | 2021-04-11 18:00 | NUR ---
RN NOTE PATIENT ARRIVED BACK FROM EGD PROCEDURE, AWAKE AND ALERT. PATIENT'S VITALS, BP 118/76, HR 76, RR18 O2 100 ON ROOM AIR. WILL CONTINUE TO MONITOR.
--- NOTE | 2021-04-11 18:41 | NUR ---
MS RN CLOSING NOTE PATIENT IN BED RESTING. PATIENT IS A/O X 4. PATIENT IS BREATHING EVENLY AND NONLABORED STABLE ON ROOM AIR. NO SIGNS OF DISTRESS NOTED. NO COMPLAINTS OF PAIN AT THIS TIME. PATIENT HAS IV ACCESS RAC # 18 GAUGE PATENT AND INTACT. IV ACCESS PATENT AND INTACT. PATIENT IS NOTED WITH COLOSTOMY IN PLACE. ALL MEDICATION GIVEN ORDERED. SAFETY MEASURES ARE IN PLACE, SIDE RAILS UP, BED ALARM ON, BED LOW LOCKED AND CALL LIGHT WITHIN REACH. WILL ENDORSE TO ONCOMING SHIFT
--- NOTE | 2021-04-11 19:15 | NUR ---
RN OPENING NOTE PATIENT IN BED, AWAKE. A/O X 4. ABLE TO MAKE NEEDS KNOWN. BREATHING EVEN AND UNLABORED, TOLERATING ROOM AIR AT 97%. PATIENT S/P EGD TODAY. COLOSTOMY CLEAN, DRY, AND IN PLACE WITH LOOSE BROWN STOOL OUTPUT. IV ACCESS PATENT, FLUSHING WELL. COMPLAINS OF LEFT ABDOMEN AND CHEST PAIN AT 5/10 ON PAIN SCALE. SAFETY MEASURES IN PLACE: BED IN LOCKED AND LOWEST POSITION, CALL LIGHT WITHIN REACH, SIDE RAILS UP. ENCOURAGED PATIENT TO CALL IF IN NEED. WILL MONITOR PATIENT CLOSELY.
--- NOTE | 2021-04-11 20:28 | NUR ---
PATIENT GIVEN NORCO 10/325 FOR CHEST AND ABDOMINAL PAIN OF 8/10 ON THE PAIN SCALE OF 0-10. WILL REASSESS PAIN LEVEL.
[2021-04-11] MEDS: TAMSULOSIN 0.4 MG CAP.SR.24H PO SCH (21:40)
[2021-04-11] MEDS: ATORVASTATIN 10 MG TABLET PO SCH (21:40)
[2021-04-11] MEDS: TRAZODONE 50 MG TABLET PO PRN (21:40)
[2021-04-11] MEDS: PREGABALIN 25 MG CAPSULE PO SCH (21:40)
--- NOTE | 2021-04-11 21:45 | NUR ---
PATIENT REQUESTED SOMETHING FOR SLEEP. TRAZADONE GIVEN TO PATIENT TO HELP HIM SLEEP.
[2021-04-11 22:00] VITALS: BP 129/75
--- NOTE | 2021-04-11 23:50 | NUR ---
PATIENT REPORTS BEING ANXIOUS AND REQUESTING ATIVAN. NOTIFIED WATER QUALITY TECHNICIAN MD. ORDERED ATIVAN 1 MG PO X 1. ATIVAN GIVEN TO PATIENT. WILL CONTINUE TO MONITOR PATIENT'S BEHAVIOR.
[2021-04-12] VITALS: BP 129/75
[2021-04-12] MEDS ORDERED: LORAZEPAM 1 MG TABLET PO ONE
[2021-04-12 06:09] LABS: BASOPHILS % (AUTO) 0.5 % (0.0-2.0); EOSINOPHILS % (AUTO) 6.6 % (0.0-6.0); HEMATOCRIT 42 % (39-51); HEMOGLOBIN 13.3 g/dL (13.5-17.5); LYMPHOCYTES # (AUTO) 1.1 /CMM (0.8-4.8); LYMPHOCYTES % (AUTO) 17.8 % (20.0-44.0); MEAN CORPUSCULAR HGB CONC 32 g/dl (31.0-36.0); MEAN CORPUSCULAR VOLUME 98 fL (80-96); MONOCYTES # (AUTO) 0.7 /CMM (0.1-1.30); MONOCYTES % (AUTO) 11.2 % (2.0-12.0); NEUTROPHILS # (AUTO) 4.1 /CMM (1.8-8.9); NEUTROPHILS % (AUTO) 63.9 % (43.0-81.0); PLATELET COUNT (AUTO) 211 /CMM (150-450); RED BLOOD CELL COUNT(AUTO) 4.22 MIL/uL (4.5-6.0); WHITE BLOOD COUNT (AUTO) 6.5 K/uL (4.3-11.0)
[2021-04-12 06:52] LABS: ALBUMIN 2.9 g/dL (3.4-5.0); BILIRUBIN,TOTAL 0.2 mg/dL (0.2-1.0); MAGNESIUM 2.1 mg/dL (1.8-2.4); PHOSPHORUS 3.2 mg/dL (2.5-4.9); POTASSIUM 4.1 mmol/L (3.5-5.1); TOTAL PROTEIN, SERUM 7.1 g/dL (6.4-8.2)
--- NOTE | 2021-04-12 07:08 | NUR ---
RN CLOSING NOTE PATIENT IN BED, SLEEPING. EASILY AROUSED, BREATHING EVEN AND UNLABORED, TOLERATING ROOM AIR AT 97%. COLOSTOMY CLEAN, DRY, AND IN PLACE WITH LOOSE BROWN STOOL WITH 950 ML OUTPUT. IV ACCESS PATENT, FLUSHING WELL. DOES NOT COMPLAIN OF PAIN OR DISCOMFORT AT THIS TIME. SAFETY MEASURES MAINTAINED. ALL NEEDS MET AND ATTENDED. ALL ORDERS CARRIED OUT. WILL ENDORSE TO DAY SHIFT NURSE FOR RAJINDER.
--- NOTE | 2021-04-12 07:37 | NUR ---
MS RN OPENING NOTE RECEIVED PATIENT IN BED, RESTING. EASY TO AROUSE. A/O X 4. ON ROOM AIR - TOLERATING WELL. NO SOB NOTED. COLOSTOMY CLEAN, DRY, AND IN PLACE. IV ACCESS TO RIGHT AC #18 - PATENT AND INTACT - S/L. SAFETY MEASURES IN PLACE. CALL LIGHT WITHIN REACH. WILL CONTINUE TO MONITOR.
[2021-04-12 08:00] VITALS: BP 104/67
[2021-04-12] MEDS: PANTOPRAZOLE 40 MG TABLET.DR PO SCH (08:19)
[2021-04-12] MEDS: ALLOPURINOL 100 MG TABLET PO SCH (08:22)
[2021-04-12] MEDS: FUROSEMIDE 40 MG TABLET PO SCH (08:22)
[2021-04-12] MEDS: SERTRALINE HCL 50 MG TABLET PO SCH (08:22)
[2021-04-12] MEDS: APIXABAN 5 MG TABLET PO SCH (08:24)
[2021-04-12] MEDS: METOPROLOL TARTRATE 25 MG TABLET PO SCH (08:25)
[2021-04-12] MEDS: CLOTRIMAZOLE 1% 15 GM TUBE TP SCH (08:26)
[2021-04-12] MEDS ORDERED: METO50TA16 PO (10:03)
[2021-04-12] MEDS ORDERED: OMEP40CA13 PO (10:03)
[2021-04-12] MEDS ORDERED: APIX5TAB PO (10:03)
[2021-04-12] MEDS ORDERED: FURO40TA5 PO (10:03)
--- NOTE | 2021-04-12 12:37 | NUR ---
MS PIPELINE OPERATOR NOTE PATIENT DISCHARGED HOME VIA [facility] @ 8263. PATIENT STABLE, A/O X4. OXYGEN SATURATION @ 97% ON ROOM AIR. NO SOB NOTED. NO DISTRESS NOTED. DISCHARGE WOUND PHOTOS TAKEN. IV ACCESS TO RIGHT FOREARM REMOVED, PRESSURE DRESSING APPLIED. PATIENT GIVEN EXITCARE AND EDUCATION - VERBALIZED UNDERSTANDING. PATIENT AWARE OF PRESCRIPTIONS CALLED INTO PHARMACY FOR PICKUP. MORNING MEDICATIONS GIVEN. PATIENT KEPT CLEAN AND DRY. WRISTBAND REMOVED. PATIENT ACCOMPANIED TO LOBBY IN WHEELCHAIR BY SAMMY FERRARO.
== END 2021-04-12 12:40 | disposition home or self-care (01) | DRG 391 ==
LOC: ER 21:40 → TELE 23:32 → MED 04-10 08:45
PROVIDERS: ATTEND Nurse Practitioner Acute Care
PROC: 0DJ08ZZ Inspection of Upper Intestinal Tract, Via Natural or Artificial Opening Endoscopic (ICD-10-PCS; principal; 2021-04-11)
DX: K29.70 Gastritis, unspecified, without bleeding (principal); N17.0 Acute kidney failure with tubular necrosis; D68.59 Other primary thrombophilia; Z68.41 Body mass index [BMI] 40.0-44.9, adult; I48.91 Unspecified atrial fibrillation; E11.42 Type 2 diabetes mellitus with diabetic polyneuropathy; Z20.822 Contact with and (suspected) exposure to COVID-19; E11.22 Type 2 diabetes mellitus with diabetic chronic kidney disease; Z79.899 Other long term (current) drug therapy; Z79.01 Long term (current) use of anticoagulants; Z93.3 Colostomy status; Z90.49 Acquired absence of other specified parts of digestive tract; Z82.49 Family history of ischemic heart disease and other diseases of the circulatory system; Z79.51 Long term (current) use of inhaled steroids; I25.10 Atherosclerotic heart disease of native coronary artery without angina pectoris; E66.01 Morbid (severe) obesity due to excess calories; E78.5 Hyperlipidemia, unspecified; E83.42 Hypomagnesemia; N40.0 Benign prostatic hyperplasia without lower urinary tract symptoms; N18.9 Chronic kidney disease, unspecified; I13.10 Hypertensive heart and chronic kidney disease without heart failure, with stage 1 through stage 4 chronic kidney disease, or unspecified chronic kidney disease; F32.9 Major depressive disorder, single episode, unspecified; N13.9 Obstructive and reflux uropathy, unspecified; F39 Unspecified mood [affective] disorder; F10.10 Alcohol abuse, uncomplicated; Y90.9 Presence of alcohol in blood, level not specified
CPT/HCPCS: 36415; 71045-TC; 80048-TC; 80053-TC; 83735-TC; 83880; 84100-TC; 84484-TC; 85025-TC; 87081-TC; 88305-TC; 88313-TC; 88342; C9803; G0378; J2270; J2405; J2704; J3475; J3490; J7030; J7050

== ENCOUNTER 2021-07-11 11:07 | Inpatient (IN) | payer MEDICARE, OTHER ==
[~2021-07-11] VITALS: Ht 182.9 cm; Wt 149.7 kg
[~2021-07-11 11:07] MED LIST changes: +APIX5TAB PO; +METO50TA16 PO; +OMEP40CA21 PO; -SERT-438 PO; +SERT50TA12 PO; -ZOLP5TAB2 PO
--- NOTE | 2021-07-11 11:10 | NUR ---
AAOX3, came to ER c/o chest pain, sob and bilateral lower extremities edema for couple of days. Resp is slightly labored. Skin is warm and dry. Placed on the monitor. Dr Corona at BS for eval.
[2021-07-11] MEDS ORDERED: ASPIRIN 325 MG TABLET ONE (11:16)
--- NOTE | 2021-07-11 11:18 | NUR ---
EKG in progress at BS
[2021-07-11] MEDS ORDERED: ASPIRIN 325 MG TABLET PO ONE (11:30)
[2021-07-11 11:40] LABS: BASOPHILS % (AUTO) 0.8 % (0.0-2.0); HEMATOCRIT 41 % (39-51); HEMOGLOBIN 13.2 g/dL (13.5-17.5); LYMPHOCYTES # (AUTO) 0.8 K/uL (0.8-4.8); LYMPHOCYTES % (AUTO) 14.2 % (20.0-44.0); MEAN CORPUSCULAR HGB CONC 33 g/dl (31.0-36.0); MEAN CORPUSCULAR VOLUME 96 fL (80-96); MONOCYTES # (AUTO) 0.9 K/uL (0.1-1.30); NEUTROPHILS # (AUTO) 3.8 K/uL (1.8-8.9); PLATELET COUNT (AUTO) 214 K/uL (150-450); RED BLOOD CELL COUNT(AUTO) 4.21 MIL/uL (4.5-6.0); WHITE BLOOD COUNT (AUTO) 5.8 K/uL (4.3-11.0)
[2021-07-11 11:46] LABS: CALCIUM, SERUM 8.8 mg/dL (8.5-10.1); CARBON DIOXIDE 25 mmol/L (21-32); CHLORIDE 108 mmol/L (98-107); CREATININE 1.3 mg/dL (0.6-1.3); GLUCOSE 104 mg/dL (74-106); POTASSIUM 4.4 mmol/L (3.5-5.1); SODIUM SERUM 141 mmol/L (136-145); UREA NITROGEN, BLOOD 13 mg/dL (7-18)
[2021-07-11] MEDS ORDERED: ZOLP5TAB8 PO (11:49)
[2021-07-11] MEDS ORDERED: POTA15TA11 PO (11:54)
[2021-07-11 12:00] LABS: ALANINE AMINOTRANSFERASE 27 U/L (12-78); ALBUMIN 3.3 g/dL (3.4-5.0); ALKALINE PHOSPHATASE 64 U/L (46-116); ASPARTATE AMINOTRANSFERASE 23 U/L (15-37); BILIRUBIN,DIRECT 0.1 mg/dL (0.0-0.2); BILIRUBIN,TOTAL 0.4 mg/dL (0.2-1.0); TOTAL PROTEIN, SERUM 7.3 g/dL (6.4-8.2)
--- NOTE | 2021-07-11 12:28 | NUR ---
PATIENT WILL GO TO TELE 324-1
[2021-07-11] MEDS ORDERED: ENOXAPARIN SODIUM 40 MG/0.4 ML DISP.SYRIN SQ SCH (12:30)
[2021-07-11] MEDS ORDERED: ALBUTEROL SULFATE INH 18 GM HFA.AER.AD IH PRN (12:30)
[2021-07-11] MEDS ORDERED: Z GUARD REMEDY 2 OZ OINT TP PRN (12:30)
[2021-07-11] MEDS ORDERED: ONDANSETRON HCL/PF 4 MG/2 ML VIAL IVP PRN (12:30)
[2021-07-11] MEDS ORDERED: HYDROCODONE/APAP 5/325MG TABLET PO PRN (12:30)
[2021-07-11] MEDS ORDERED: MAGNESIUM HYDROXIDE 30 ML UDC PO PRN (12:30)
[2021-07-11] MEDS ORDERED: TRAMADOL HCL 50 MG TABLET PO PRN (12:30)
[2021-07-11] MEDS ORDERED: MAG HYDROX/AL HYDROX/SIMETH 30 ML UDC PO PRN (12:30)
[2021-07-11] MEDS ORDERED: FUROSEMIDE 20 MG/2 ML VIAL IV ONE (12:30)
[2021-07-11] MEDS ORDERED: ACETAMINOPHEN 325 MG TABLET PO PRN ×2 (12:30)
[2021-07-11] MEDS ORDERED: FUROSEMIDE 20 MG/2 ML VIAL ONE (12:40)
--- NOTE | 2021-07-11 12:58 | NUR ---
Report given to Bubba YBARRA for joselito.
--- NOTE | 2021-07-11 13:10 | NUR ---
TASTE TESTER NOTE RECEIVED PATIENT VIA GURNEY FROM THE ER. PATIENT IS A/O X4, ABLE TO MAKE NEEDS KNOWN. PATIENT IS BREATHING EVENLY AND NONLABORED ON ROOM AIR. PATIENT DOES NOT SHOW ANY SIGNS OF DISTRESS. PATIENT'S VITALS ARE BP 143/98, HR 76, RR 18, O2 SAT 98% TEMP 97.8. PATIENT COMPLAINS OF SEVERE PAIN ASKING FOR PRN PAIN MEDICATIONS, WILL GIVEN PRN PAIN MEDICATION ORDERED. PATIENT IS ON TELE MONITOR SHOWING AFIB IN THE 80S. PATIENT IS ABLE TO AMBULATE FROM [facility] TO BED SAFELY. PATIENT HAS IV ACCESS TO RAC # 18 GAUGE PATENT AND INTACT. PATIENT NOTED WITH COLOSTOMY BAG WITH LIQUID IN POUCH. PATIENT WAS ORIENTED TO THE ROOM AND HOW TO USE THE CALL LIGHT. ALL BELONGINGS ACCOUNTED FOR. SAFETY MEASURES IN PLACE, BED LOW LOCKED, SIDE RAILS UP X2 AND CALL LIGHT AND TABLE WITHIN REACH. WILL CONTINUE TO MONITOR
[2021-07-11] MEDS: MORPHINE SULFATE INJ 2 MG/ML DISP.SYRIN IV PRN ×3 (13:40→22:45)
[2021-07-11] MEDS: APIXABAN 5 MG TABLET PO SCH (16:03)
[2021-07-11] MEDS: METOPROLOL TARTRATE 25 MG TABLET PO SCH (16:04)
--- NOTE | 2021-07-11 18:29 | NUR ---
ELEMENTARY EDUCATION TUTOR CLOSING NOTE PATIENT RESTING IN BED. PATIENT IS A/O X4, ABLE TO MAKE NEEDS KNOWN. PATIENT IS BREATHING EVENLY AND NONLABORED ON ROOM AIR. PATIENT DOES NOT SHOW ANY SIGNS OF DISTRESS. PATIENT DOES NOT COMPLAIN OF PAIN AT THIS TIME. PATIENT IS ON TELE MONITOR SHOWING AFIB IN THE 80S. PATIENT HAS IV ACCESS TO RAC # 18 GAUGE PATENT AND INTACT. PATIENT NOTED WITH COLOSTOMY BAG WITH LIQUID IN POUCH. SAFETY MEASURES IN PLACE, BED LOW LOCKED, SIDE RAILS UP X2 AND CALL LIGHT AND TABLE WITHIN REACH. WILL ENDORSE TO ONCOMING SHIFT
--- NOTE | 2021-07-11 19:50 | NUR ---
LITHOPONE MILL WORKER OPENING NOTES PATIENT IN BED WATCHING TV, ALERT/ORIENTED X 4, PT ABLE TO MAKE NEEDS KNOWN. PT STABLE ON RA, NO S/S OF DISTRESS OR SOB NOTED, BREATHING EVEN AND UNLABORED. TELEMONITORING READING CONTROLLED A. FIB, HR: 59. COLOSTOMY BAG INTACT AND JUST EMPTIED BY PATIENT. RIGHT AC #18G IV ACCESS INTACT AND SALINE LOCKED. SAFETY MEASURES IN PLACE: CALL LIGHT WITHIN REACH, BED ALARM ON, SIDE RAILS UP X 2, BED LOCKED IN LOW POSITION. WILL CONTINUE TO MONITOR PATIENT
[2021-07-11 20:00] VITALS: BP 129/74
[2021-07-11] MEDS: TRAZODONE 50 MG TABLET PO SCH (21:55)
[2021-07-11] MEDS: TAMSULOSIN 0.4 MG CAP.SR.24H PO SCH (21:55)
[2021-07-11] MEDS: PREGABALIN 25 MG CAPSULE PO SCH (21:55)
[2021-07-12 00:44] VITALS: BP 117/73
[2021-07-12] MEDS: MORPHINE SULFATE INJ 2 MG/ML DISP.SYRIN IV PRN ×5 (03:53→23:29)
--- NOTE | 2021-07-12 07:11 | NUR ---
WATER TEAM LEADER CLOSING NOTES PATIENT SLEEPING IN BED, PT STABLE ON RA, NO S/S OF DISTRESS OR SOB NOTED, BREATHING EVEN AND UNLABORED. TELEMETRY READING A. FIB, HR: 55. PT REMAINED STABLE THROUGHOUT SHIFT, NO SIGNIFICANT CHANGES. MEDICATIONS GIVEN ORDERED, PT NEEDS MET THROUGHOUT SHIFT. COLOSTOMY BAG INTACT. RIGHT AC IV ACCESS INTACT AND FLUSHING WELL. SAFETY MEASURES IN PLACE: CALL LIGHT WITHIN REACH, BED LOCKED IN LOW POSITION, SIDE RAILS UP X 2, BED ALARM ON. ENDORSED TO DAY SHIFT NURSE FOR CONTINUITY OF CARE
--- NOTE | 2021-07-12 07:30 | NUR ---
RN OPENING NOTES RECEIVED PATIENT IN BED, AWAKE, ALERT/ORIENTED X 4, PT ABLE TO MAKE NEEDS KNOWN. ON RA, TOLERATING WELL, NO S/S OF DISTRESS OR SOB NOTED, BREATHING EVEN AND UNLABORED. COLOSTOMY BAG INTACT AND BEING EMPTIED BY PATIENT. RIGHT AC #18G IV ACCESS INTACT AND SALINE LOCKED, PATENT AND FLUSHES WELL. SAFETY MEASURES IN PLACE: CALL LIGHT WITHIN REACH, BED ALARM ON, SIDE RAILS UP X 2, BED LOCKED IN LOW POSITION. WILL CONTINUE TO MONITOR PATIENT ACCORDINGLY.
[2021-07-12] MEDS: PANTOPRAZOLE 40 MG TABLET.DR PO SCH (07:37)
[2021-07-12 08:00] VITALS: BP 129/61
[2021-07-12] MEDS: ASPIRIN 81 MG TAB.CHEW PO SCH (08:20)
[2021-07-12] MEDS: SERTRALINE HCL 50 MG TABLET PO SCH (08:21)
[2021-07-12] MEDS: ALLOPURINOL 100 MG TABLET PO SCH (08:21)
[2021-07-12] MEDS: ATORVASTATIN 10 MG TABLET PO SCH (08:22)
[2021-07-12] MEDS: METOPROLOL TARTRATE 25 MG TABLET PO SCH ×2 (08:23→16:10)
[2021-07-12] MEDS: POTASSIUM CHLORIDE 20 MEQ TAB.PRT.SR PO SCH (08:23)
[2021-07-12] MEDS: FUROSEMIDE 40 MG/4 ML VIAL IV SCH (08:23)
[2021-07-12] MEDS: APIXABAN 5 MG TABLET PO SCH ×2 (08:24→16:09)
[2021-07-12 12:33] LABS: BASOPHILS % (AUTO) 0.6 % (0.0-2.0); EOSINOPHILS % (AUTO) 6.5 % (0.0-6.0); HEMATOCRIT 42 % (39-51); HEMOGLOBIN 13.6 g/dL (13.5-17.5); LYMPHOCYTES # (AUTO) 1.1 K/uL (0.8-4.8); LYMPHOCYTES % (AUTO) 17.6 % (20.0-44.0); MEAN CORPUSCULAR HGB CONC 33 g/dl (31.0-36.0); MEAN CORPUSCULAR VOLUME 97 fL (80-96); MONOCYTES # (AUTO) 0.8 K/uL (0.1-1.30); MONOCYTES % (AUTO) 13.3 % (2.0-12.0); NEUTROPHILS # (AUTO) 3.7 K/uL (1.8-8.9); PLATELET COUNT (AUTO) 202 K/uL (150-450); RED BLOOD CELL COUNT(AUTO) 4.29 MIL/uL (4.5-6.0)
[2021-07-12 14:27] LABS: CALCIUM, SERUM 8.9 mg/dL (8.5-10.1); CREATININE 1.1 mg/dL (0.6-1.3); PHOSPHORUS 4.1 mg/dL (2.5-4.9); POTASSIUM 4.4 mmol/L (3.5-5.1)
[2021-07-12 16:00] VITALS: BP_SYST 133; BP_SYST 149; BP_DIAS 70; BP_DIAS 84
--- NOTE | 2021-07-12 18:23 | NUR ---
MS RN CLOSING NOTES PATIENT IN BED, AWAKE, ALERT/ORIENTED X 4, PT ABLE TO MAKE NEEDS KNOWN. ON RA, TOLERATING WELL, NO S/S OF DISTRESS OR SOB NOTED, BREATHING EVEN AND UNLABORED. COLOSTOMY BAG INTACT AND BEING EMPTIED BY PATIENT. RIGHT AC #18G IV ACCESS INTACT AND SALINE LOCKED, PATENT AND FLUSHES WELL. SAFETY MEASURES IN PLACE: CALL LIGHT WITHIN REACH, BED ALARM ON, SIDE RAILS UP X 2, BED LOCKED IN LOW POSITION. ALL NEEDS ATTENDED AND MET. DUE MEDS GIVEN ORDERED. WILL ENDORSE TO ONCOMING SHIFT FOR RAJINDER.
--- NOTE | 2021-07-12 19:25 | NUR ---
MS/RN OPENING NOTE RECEIVED PATIENT RESTING IN BED. AWAKE, ALERT AND ORIENTED X 4. ABLE TO MAKE NEEDS KNOWN. C/O ABDOMINAL PAIN 06/14 - WILL CHECK EMAR FOR MEDICATION ORDERS. CONTINUES ON ROOM AIR WITH NO S/SX OF RESPIRATORY DISTRESS NOTED. IV ACCESS TO RIGHT AC #18G INTACT, PATENT AND SALINE LOCKED. COLOSTOMY IN PLACE. CALL LIGHT WITHIN REACH. ASPIRATION, FALL AND SAFETY PRECAUTIONS MAINTAINED. WILL CONTINUE TO MONITOR.
--- NOTE | 2021-07-12 19:30 | NUR ---
MS/RN NOTE ADMINISTERED PRN MORPHINE FOR PAIN LEVEL 8/10 WITH PENDING EFFECT. WILL CONTINUE TO MONITOR.
[2021-07-12 20:00] VITALS: BP 143/75
[2021-07-12] MEDS: TRAZODONE 50 MG TABLET PO SCH (21:41)
[2021-07-12] MEDS: TAMSULOSIN 0.4 MG CAP.SR.24H PO SCH (21:41)
[2021-07-12] MEDS: PREGABALIN 25 MG CAPSULE PO SCH (21:41)
[2021-07-13] MEDS: MORPHINE SULFATE INJ 2 MG/ML DISP.SYRIN IV PRN ×4 (03:45→17:50)
--- NOTE | 2021-07-13 06:35 | NUR ---
MS/RN CLOSING NOTE PATIENT CURRENTLY RESTING IN BED. AWAKE, ALERT AND ORIENTED X 4. ABLE TO MAKE NEEDS KNOWN. DENIES PAIN AT THIS TIME. CONTINUES ON ROOM AIR WITH NO S/SX OF RESPIRATORY DISTRESS NOTED. IV ACCESS TO RIGHT AC #18G INTACT, PATENT AND SALINE LOCKED. COLOSTOMY IN PLACE AND INTACT. OUTPUT FROM COLOSTOMY WAS 1100CC THIS SHIFT. CALL LIGHT WITHIN REACH. ASPIRATION, FALL AND SAFETY PRECAUTIONS MAINTAINED. WILL ENDORSE PLAN OF CARE TO ONCOMING SHIFT.
[2021-07-13 07:44] LABS: CALCIUM, SERUM 9.3 mg/dL (8.5-10.1); CREATININE 1.3 mg/dL (0.6-1.3); POTASSIUM 4.3 mmol/L (3.5-5.1)
[2021-07-13 08:00] VITALS: BP 125/58
--- NOTE | 2021-07-13 08:00 | NUR ---
MS RN OPENING NOTE RECEIVED PATIENT LYING IN BED, AWAKE. A/O X4. STABLE ON ROOM AIR - NO SOB NOTED. NO DISTRESS/DISCOMFORT NOTED. IV ACCESS TO RIGHT AC #18 - SALINE LOCKED. COLOSTOMY NOTED - PATIENT PREFERS TO CHANGE IT HIMSELF. SAFETY MEASURES IN PLACE. CALL LIGHT WITHIN REACH. WILL CONTINUE TO MONITOR.
[2021-07-13] MEDS: ALLOPURINOL 100 MG TABLET PO SCH (09:06)
[2021-07-13] MEDS: ATORVASTATIN 10 MG TABLET PO SCH (09:06)
[2021-07-13] MEDS: METOPROLOL TARTRATE 25 MG TABLET PO SCH ×2 (09:06→16:59)
[2021-07-13] MEDS: ASPIRIN 81 MG TAB.CHEW PO SCH (09:07)
[2021-07-13] MEDS: POTASSIUM CHLORIDE 20 MEQ TAB.PRT.SR PO SCH (09:07)
[2021-07-13] MEDS: SERTRALINE HCL 50 MG TABLET PO SCH (09:07)
[2021-07-13] MEDS: PANTOPRAZOLE 40 MG TABLET.DR PO SCH (09:07)
[2021-07-13] MEDS: FUROSEMIDE 40 MG/4 ML VIAL IV SCH (09:07)
[2021-07-13] MEDS: APIXABAN 5 MG TABLET PO SCH ×2 (09:08→17:27)
[2021-07-13] MEDS ORDERED: OXYC-128 PO (15:52)
[2021-07-13 16:00] VITALS: BP 108/71
[2021-07-13 16:59] VITALS: BP 108/71
--- NOTE | 2021-07-13 18:55 | NUR ---
MS RN CLOSING NOTE PATIENT CURRENTLY LYING IN BED, AWAKE. A/O X4. STABLE ON ROOM AIR - NO SOB NOTED. NO DISTRESS/DISCOMFORT NOTED. PENDING DISCHARGE - WAITING ON [facility] CAB. IV ACCESS REMOVED. ALL PATIENT EDUCATION AND EXITCARE REVIEWED WITH PATIENT - PAPERWORK GIVEN TO PATIENT. WILL ENDORSE TO FUELS SALES REPRESENTATIVE NURSE FOR RAJINDER.
--- NOTE | 2021-07-13 19:55 | NUR ---
WATCH AND CLOCK REPAIRER NOTE PATIENT RECEIVED READY FOR D/C EXIT CARE PROVIDED, ALL FORMS SIGNED. IV ACCESS NO LONGER IN PLACE. PATIENT AMBULATORY, PATIENT ABLE TO MAKE NEEDS KNOWN. VITAL SIGNS STABLE. BREATHING EVEN AND UNLABORED. PATIENT PICKED UP BY DONNIE Arellano WITH VOUCHER.
[2021-07-14] MEDS ORDERED: FUROSEMIDE 40 MG TABLET PO SCH (09:00)
== END 2021-07-13 19:45 | disposition home or self-care (01) | DRG 206 ==
LOC: ER 11:10 → TELE 12:49 → MED 07-12 08:06
PROVIDERS: ADMIT Nurse Practitioner Acute Care; ATTEND Nurse Practitioner Acute Care
DX: M94.0 Chondrocostal junction syndrome [Tietze] (principal); I48.20 Chronic atrial fibrillation, unspecified; Z68.41 Body mass index [BMI] 40.0-44.9, adult; J90 Pleural effusion, not elsewhere classified; E44.1 Mild protein-calorie malnutrition; I25.10 Atherosclerotic heart disease of native coronary artery without angina pectoris; K29.70 Gastritis, unspecified, without bleeding; N18.9 Chronic kidney disease, unspecified; N40.0 Benign prostatic hyperplasia without lower urinary tract symptoms; E11.22 Type 2 diabetes mellitus with diabetic chronic kidney disease; E11.40 Type 2 diabetes mellitus with diabetic neuropathy, unspecified; E66.01 Morbid (severe) obesity due to excess calories; E78.5 Hyperlipidemia, unspecified; F32.9 Major depressive disorder, single episode, unspecified; F41.9 Anxiety disorder, unspecified; G47.33 Obstructive sleep apnea (adult) (pediatric); K51.90 Ulcerative colitis, unspecified, without complications; G89.4 Chronic pain syndrome; Z79.01 Long term (current) use of anticoagulants; Z20.822 Contact with and (suspected) exposure to COVID-19; Z90.49 Acquired absence of other specified parts of digestive tract; I12.9 Hypertensive chronic kidney disease with stage 1 through stage 4 chronic kidney disease, or unspecified chronic kidney disease; Z71.3 Dietary counseling and surveillance; Z79.84 Long term (current) use of oral hypoglycemic drugs
CPT/HCPCS: 36415; 71045-TC; 80048-TC; 80061-TC; 80076-TC; 83735-TC; 83880; 84100-TC; 84484-TC; 85025-TC; 87081-TC; 93307-TC; G0378; J1940; J2270

== ENCOUNTER 2021-07-22 14:48 | Emergency (ER) | payer MEDICARE, OTHER ==
[~2021-07-22] VITALS: Ht 182.9 cm; Wt 149.7 kg
[~2021-07-22 14:48] MED LIST changes: -AMOX-430 PO; -APIX5TAB PO; -METO50TA16 PO; -OMEP20CA15 PO; -OMEP40CA21 PO; -ONDA4TAB11 PO; +OXYC-128 PO; +POTA15TA11 PO; +ZOLP5TAB8 PO
--- NOTE | 2021-07-22 15:01 | NUR ---
TO ER BED 1, C/O SOB/ CHEST PAIN, BLE SWELLING X 2 DAYS, AAOX4, BREATHING EVEN AND NON LABORED, ATTACHED TO MONITOR.
--- NOTE | 2021-07-22 15:15 | NUR ---
LAB AT BEDSIDE FOR BLOOD DRAW
[2021-07-22 16:07] LABS: BASOPHILS # (AUTO) 0.1 K/uL (0.0-0.2); BASOPHILS % (AUTO) 1.1 % (0.0-2.0); EOSINOPHILS % (AUTO) 3.7 % (0.0-6.0); HEMATOCRIT 43 % (39-51); HEMOGLOBIN 14.2 g/dL (13.5-17.5); LYMPHOCYTES # (AUTO) 1.1 K/uL (0.8-4.8); LYMPHOCYTES % (AUTO) 13.8 % (20.0-44.0); MEAN CORPUSCULAR HGB CONC 33 g/dl (31.0-36.0); MEAN CORPUSCULAR VOLUME 96 fL (80-96); MONOCYTES # (AUTO) 0.9 K/uL (0.1-1.30); NEUTROPHILS # (AUTO) 5.4 K/uL (1.8-8.9); NEUTROPHILS % (AUTO) 69.4 % (43.0-81.0); PLATELET COUNT (AUTO) 220 K/uL (150-450); RED BLOOD CELL COUNT(AUTO) 4.45 MIL/uL (4.5-6.0); WHITE BLOOD COUNT (AUTO) 7.7 K/uL (4.3-11.0)
[2021-07-22 16:27] LABS: CARBON DIOXIDE 28 mmol/L (21-32); CHLORIDE 106 mmol/L (98-107); CREATININE 1.3 mg/dL (0.6-1.3); GLUCOSE 111 mg/dL (74-106); POTASSIUM 4.1 mmol/L (3.5-5.1); SODIUM SERUM 143 mmol/L (136-145); UREA NITROGEN, BLOOD 20 mg/dL (7-18)
[2021-07-22 16:42] LABS: ALANINE AMINOTRANSFERASE 28 U/L (12-78); ALBUMIN 3.3 g/dL (3.4-5.0); ALKALINE PHOSPHATASE 68 U/L (46-116); ASPARTATE AMINOTRANSFERASE 23 U/L (15-37); BILIRUBIN,DIRECT 0.1 mg/dL (0.0-0.2); BILIRUBIN,TOTAL 0.4 mg/dL (0.2-1.0); TOTAL PROTEIN, SERUM 7.7 g/dL (6.4-8.2)
--- NOTE | 2021-07-22 17:20 | NUR ---
IV removed. Catheter intact and site benign. Pressure and 4x4 applied to site. No bleeding noted. Patient discharged to home in stable condition. Written and verbal after care instructions given. Patient verbalizes understanding of instruction.
[2021-07-22 17:31] VITALS: BP 130/71
== END 2021-07-22 17:33 | disposition home or self-care (01) ==
LOC: ER 15:03
DX: R07.89 Other chest pain (principal); F10.10 Alcohol abuse, uncomplicated; I10 Essential (primary) hypertension; E11.9 Type 2 diabetes mellitus without complications; Y90.9 Presence of alcohol in blood, level not specified; Z93.3 Colostomy status; Z60.2 Problems related to living alone; Z79.899 Other long term (current) drug therapy
CPT/HCPCS: 36415; 71045-TC; 80048-TC; 80076-TC; 83880; 84484-TC; 85025-TC

== ENCOUNTER 2022-02-05 11:30 | Inpatient (IN) | payer MEDICARE, OTHER ==
[~2022-02-05] VITALS: Ht 182.9 cm; Wt 150.1 kg
--- NOTE | 2022-02-05 11:30 | NUR ---
PT BIB SELF C/O COUGH, CHEST DISCOMFORT, FEVER AND LOWER ABDOMINAL REDNESS AND SWELLING. PT IS AAOX4, NOT IN RESPIRATORY DISTRESS, HOOKED TO V/S MONITOR, KEPT RESTED AND COMFORTABLE. WILL CONTINUE TO MONITOR.
--- NOTE | 2022-02-05 12:14 | NUR ---
SEEN AND EXAMINED BY .
--- NOTE | 2022-02-05 12:25 | NUR ---
NURSING INTERNAL AFFAIRS COMMANDER CALLED FOR [facility]
[2022-02-05] MEDS ORDERED: ASPIRIN 325 MG TABLET PO ONE (12:30)
[2022-02-05] MEDS ORDERED: ONDANSETRON HCL/PF 4 MG/2 ML VIAL IVP ONE (12:30)
[2022-02-05] MEDS ORDERED: MORPHINE SULFATE INJ 2 MG/ML DISP.SYRIN IV ONE (12:30)
[2022-02-05] MEDS ORDERED: VANCOMYCIN 1.5 GM in IV D5W 500 ML IV ONE (12:30)
[2022-02-05] MEDS ORDERED: PREG-58 PO (12:48)
[2022-02-05] MEDS ORDERED: MORPHINE SULFATE INJ 2 MG/ML DISP.SYRIN ONE ×2 (13:05→18:27)
[2022-02-05] MEDS ORDERED: ONDANSETRON HCL/PF 4 MG/2 ML VIAL ONE (13:05)
[2022-02-05] MEDS ORDERED: ASPIRIN 325 MG TABLET ONE (13:05)
[2022-02-05 13:37] LABS: BASOPHILS # (AUTO) 0.1 K/uL (0.0-0.2); BASOPHILS % (AUTO) 0.6 % (0.0-2.0); EOSINOPHILS % (AUTO) 1.5 % (0.0-6.0); HEMATOCRIT 45 % (39-51); HEMOGLOBIN 14.7 g/dL (13.5-17.5); LYMPHOCYTES # (AUTO) 0.8 K/uL (0.8-4.8); LYMPHOCYTES % (AUTO) 9.4 % (20.0-44.0); MEAN CORPUSCULAR HGB CONC 33 g/dl (31.0-36.0); MEAN CORPUSCULAR VOLUME 96 fL (80-96); MONOCYTES # (AUTO) 1.2 K/uL (0.1-1.30); MONOCYTES % (AUTO) 13.2 % (2.0-12.0); NEUTROPHILS # (AUTO) 6.6 K/uL (1.8-8.9); NEUTROPHILS % (AUTO) 75.3 % (43.0-81.0); PLATELET COUNT (AUTO) 304 K/uL (150-450); RED BLOOD CELL COUNT(AUTO) 4.69 MIL/uL (4.5-6.0); WHITE BLOOD COUNT (AUTO) 8.8 K/uL (4.3-11.0)
--- NOTE | 2022-02-05 13:44 | NUR ---
[facility] WILL BE HERE AT 1800 PER NURSING TELEGRAPH MECHANIC.
[2022-02-05 13:53] LABS: ALANINE AMINOTRANSFERASE 28 U/L (12-78); ALBUMIN 3.4 g/dL (3.4-5.0); ALKALINE PHOSPHATASE 91 U/L (46-116); ASPARTATE AMINOTRANSFERASE 18 U/L (15-37); BILIRUBIN,DIRECT 0.1 mg/dL (0.0-0.2); BILIRUBIN,TOTAL 0.4 mg/dL (0.2-1.0); CALCIUM, SERUM 9.8 mg/dL (8.5-10.1); CARBON DIOXIDE 29 mmol/L (21-32); CHLORIDE 105 mmol/L (98-107); GLUCOSE 149 mg/dL (74-106); POTASSIUM 4.5 mmol/L (3.5-5.1); SODIUM SERUM 141 mmol/L (136-145); TOTAL PROTEIN, SERUM 8.9 g/dL (6.4-8.2); UREA NITROGEN, BLOOD 42 mg/dL (7-18)
--- NOTE | 2022-02-05 13:55 | NUR ---
CONTINUOUS DRYOUT OPERATOR HELPER AT BEDSIDE FOR XRAY.
[2022-02-05] MEDS ORDERED: IOHEXOL-300 100 ML VIAL IV ONE (14:40)
--- NOTE | 2022-02-05 15:30 | NUR ---
RAPID COVID COLLECTED AND SENT
--- NOTE | 2022-02-05 15:57 | NUR ---
COVID PCR SPECIMEN OBTAINED AND SENT TO LAB.
[2022-02-05 16:09] LABS: BILIRUBIN,URINE NEGATIVE (NEGATIVE); COLOR,URINE YELLOW (YELLOW); LEUKOCYTE ESTERASE ,URINE NEGATIVE (NEGATIVE); NITRITE, URINE NEGATIVE (NEGATIVE); PROTEIN,URINE TRACE mg/dl (NEGATIVE); UGLUCOSE NEGATIVE (NEGATIVE); UROBILINOGEN,URINE 0.2 EU/dL (0.2)
[2022-02-05 16:13] LABS: BACTERIA,URINE RARE /HPF (None Seen); HYALINE CASTS, URINE Few /LPF (None Seen); MUCUS,URINE Few /LPF (None Seen); RBC,URINE 0-2 /HPF (0-2); WBC,URINE 0-2 /HPF (0-3)
[2022-02-05] MEDS ORDERED: ACETAMINOPHEN 325 MG TABLET PO PRN ×2 (16:30→17:00)
[2022-02-05] MEDS ORDERED: DOCUSATE SODIUM 100 MG CAPSULE PO PRN (16:30)
[2022-02-05] MEDS ORDERED: MAG HYDROX/AL HYDROX/SIMETH 30 ML UDC PO PRN (16:30)
[2022-02-05] MEDS ORDERED: NITROGLYCERIN 0.4 MG/TAB BOTTLE SL PRN (16:30)
[2022-02-05] MEDS ORDERED: ZOLPIDEM TARTRATE 5 MG TABLET PO PRN (17:00)
[2022-02-05] MEDS ORDERED: TRAMADOL HCL 50 MG TABLET PO PRN (17:00)
[2022-02-05] MEDS: METOPROLOL TARTRATE 25 MG TABLET PO SCH (17:30)
[2022-02-05] MEDS ORDERED: ALBUTEROL FS 2.5 MG/3 ML VIAL.NEB NEB PRN (18:00)
[2022-02-05] MEDS ORDERED: METOPROLOL TARTRATE 50 MG TABLET ONE (18:27)
[2022-02-05] MEDS: MORPHINE SULFATE INJ 2 MG/ML DISP.SYRIN IV PRN ×2 (18:30→22:32)
[2022-02-05] MEDS: PIPERACILLIN /TAZOBACTAM 3.375 G in IV D5W 50 ML IV SCH (18:35)
--- NOTE | 2022-02-05 18:51 | NUR ---
GOT BED 106 AFTER CHANGE OF SHIFT.
--- NOTE | 2022-02-05 19:55 | NUR ---
RN NOTES REPORT RECEIVED FROM ER NURSE LISSETH
--- NOTE | 2022-02-05 19:57 | NUR ---
REPORT GIVEN TO NEY
[2022-02-05 20:10] VITALS: BP 145/106
--- NOTE | 2022-02-05 20:10 | NUR ---
HOME CARE ASSISTANT NOTES ADMITTED A 66 Y/O MALE PATIENT FROM ER VIA [facility]. ON ROOM AIR SATING AT 99%. RESPIRATORY EVEN AND UNLABORED, NO SOB NOTED, NO S/S OF DISTRESS NOTED. REMAIN AFEBRILE. NOTED WITH CATHERINE MID LINE, RAC #20 AND RIGHT HAND PERIPHERAL LINE, PATENT INTACT, FLUSHED WITH NS, NO S/S OF INFILTRATION AT SITES. VITAL SIGNS TAKEN AND RECORDED. COMPLETE BODY ASSESSMENT DONE. PICTURE TAKEN. ALL SAFETY MEASURES IN PLACE AT ALL TIMES. HOB ELEVATED, CALL LIGHT WITHIN REACH. BED ON LOWEST POSITION AND LOCKED. CONTINUE TO MONITOR THE PATIENT
--- NOTE | 2022-02-05 20:15 | NUR ---
PT transported to room 109 on school bus monitor per ACLS protocol without incident.
[2022-02-05] MEDS: TAMSULOSIN 0.4 MG CAP.SR.24H PO SCH (21:28)
[2022-02-05] MEDS: TRAZODONE 50 MG TABLET PO SCH (21:28)
--- NOTE | 2022-02-05 22:32 | NUR ---
patient c/o lower abdomen pain 9/10, facial grimacing, rubbing side and irritability noted, morphine ivp administered as ordered, will continue to monitor closely.
[2022-02-06] VITALS: BP 123/90
[2022-02-06] MEDS: PIPERACILLIN /TAZOBACTAM 3.375 G in IV D5W 50 ML IV SCH ×5 (00:05→23:58)
[2022-02-06] MEDS ORDERED: IV NS 0.9% 250 ML IV PRN (00:30)
[2022-02-06] MEDS: MORPHINE SULFATE INJ 2 MG/ML DISP.SYRIN IV PRN ×4 (03:43→22:10)
--- NOTE | 2022-02-06 03:43 | NUR ---
RN NOTES Patient c/o lower abdomen pain 06/14, facial grimacing noted, Morphine ivp administered as ordered, continue to monitor
[2022-02-06 04:00] VITALS: BP 127/87
--- NOTE | 2022-02-06 06:15 | NUR ---
RN NOTES RECEIVED TELEPHONE ORDER FROM DR. MARLINE MAGDALENO, START NS 1L @ 100ML/HR. NOTED AND CARRIED OUT.
[2022-02-06] MEDS ORDERED: IV NS 0.9% 1,000 ML IV PRN (06:30)
[2022-02-06] MEDS: IV NS 0.9% 1,000 ML IV PRN ×2 (06:31→22:19)
[2022-02-06] MEDS: VANCOMYCIN 1 GM in IV D5W 250ml IV SCH (07:26)
--- NOTE | 2022-02-06 07:33 | NUR ---
RN NOTES PATIENT REMAIN STABLE THROUGH OUT THE SHIFT. RESPIRATORY EVEN AND UNLABORED, NO SOB NOTED. REMAIN AFEBRILE. NO S/S OF DISTRESS NOTED. RUNNING WITH NS 1L @ 100ML/HR. ALL DUE MEDS GIVEN ORDERED. SAFETY MEASURE PROVIDED. BED IN LOWEST POSITION, LOCKED. BED ALARM ARMED. CONTINUE TO MONITOR.
[2022-02-06 07:46] LABS: BASOPHILS % (AUTO) 0.6 % (0.0-2.0); HEMATOCRIT 45 % (39-51); HEMOGLOBIN 14.4 g/dL (13.5-17.5); LYMPHOCYTES # (AUTO) 0.7 K/uL (0.8-4.8); MEAN CORPUSCULAR HGB CONC 32 g/dl (31.0-36.0); MEAN CORPUSCULAR VOLUME 97 fL (80-96); MONOCYTES # (AUTO) 0.9 K/uL (0.1-1.30); MONOCYTES % (AUTO) 12.2 % (2.0-12.0); NEUTROPHILS # (AUTO) 5.2 K/uL (1.8-8.9); NEUTROPHILS % (AUTO) 74.2 % (43.0-81.0); PLATELET COUNT (AUTO) 277 K/uL (150-450)
[2022-02-06 08:00] VITALS: BP 129/75
--- NOTE | 2022-02-06 08:23 | NUR ---
RN OPENING NOTE RECEIVED PT A/O X3, RESPIRATORY EVEN AND UNLABORED, NO SOB NOTED. REMAIN AFEBRILE. NO S/S OF DISTRESS NOTED. RUNNING WITH NS 1L @ 100ML/HR. IV ACCESS AT R UA MIDLINE, R AC 20G, R HAND. ALL SAFETY MEASURES IN PLACE, BED IN LOWEST LOCKED POSITION, CALL LIGHT WITHIN REACH, SR UP X2, WILL CONTINUE TO MONITOR THROUGHOUT SHIFT.
[2022-02-06] MEDS ORDERED: APIXABAN 5 MG TABLET PO SCH (09:00)
[2022-02-06] MEDS ORDERED: PRAVASTATIN SODIUM 20 MG TABLET PO SCH (09:00)
[2022-02-06] MEDS: FUROSEMIDE 40 MG/4 ML VIAL IV SCH (09:10)
[2022-02-06] MEDS: PREGABALIN 25 MG CAPSULE PO SCH ×2 (09:11→16:31)
[2022-02-06] MEDS: ONDANSETRON HCL/PF 4 MG/2 ML VIAL IVP PRN ×2 (09:11→09:49)
[2022-02-06] MEDS: SERTRALINE HCL 50 MG TABLET PO SCH ×2 (09:11→16:31)
[2022-02-06] MEDS: ASPIRIN 81 MG TAB.CHEW PO SCH (09:14)
[2022-02-06] MEDS: METOPROLOL TARTRATE 25 MG TABLET PO SCH ×2 (09:14→16:27)
[2022-02-06] MEDS: ATORVASTATIN 10 MG TABLET PO SCH (09:15)
[2022-02-06] MEDS: ALLOPURINOL 100 MG TABLET PO SCH (09:15)
--- NOTE | 2022-02-06 09:48 | NUR ---
WOUND CARE CONSULT: REVIEWED CHART, NURSING DOCUMENTATION AND PHOTOS WHICH INDICATE LESIONS/WOUNDS TO RT BUTTOCK AND ABDOMINAL AREA, PRESENT ON ADMISSION. RECOMMENDATIONS MADE FOR SKIN PROTECTION AND WOUND CARE. DISCUSSED WITH NURSING STAFF. DR JULIA ARMANDO CALLED FOR SURGICAL CONSULT. IN AGREEMENT WITH PLAN OF CARE.
[2022-02-06] MEDS ORDERED: Z GUARD REMEDY 4 OZ OINT TP PRN (10:00)
[2022-02-06] MEDS: Z GUARD REMEDY 4 OZ OINT TP SCH (10:27)
[2022-02-06] MEDS: ENOXAPARIN SODIUM 100 MG/ML DISP.SYRIN SQ SCH ×2 (10:29→22:04)
[2022-02-06 10:50] LABS: ALBUMIN 3.2 g/dL (3.4-5.0); BILIRUBIN,TOTAL 0.5 mg/dL (0.2-1.0); CALCIUM, SERUM 9.7 mg/dL (8.5-10.1); CREATININE 1.7 mg/dL (0.6-1.3); MAGNESIUM 2.2 mg/dL (1.8-2.4); PHOSPHORUS 3.6 mg/dL (2.5-4.9); TOTAL PROTEIN, SERUM 8.7 g/dL (6.4-8.2)
[2022-02-06 12:00] VITALS: BP 153/75
[2022-02-06 14:14] LABS: THYROID STIMULATING HORMONE 0.467 uIU/mL (0.358-3.74)
--- NOTE | 2022-02-06 14:53 | NUR ---
RN NOTES WOUND CULTURE COLLECTED FROM RIGHT HIP/BUTTOCKS AND ABDOMEN. SPECIMENS IN MED FRIDGE.
[2022-02-06 16:00] VITALS: BP 105/51
[2022-02-06] MEDS: CLOTRIMAZOLE 1% 15 GM TUBE TP SCH (16:28)
--- NOTE | 2022-02-06 18:52 | NUR ---
RN CLOSING NOTES PT IS IN BED RESTING, A/O X4. PT ON RA SATING AT 99%, IV ACCESS NOW AT L FA MIDLINE WITH NS RUNNING AT 100ML/HR FOR HYDRATION. PT TOLERATED ALL INTERVENTIONS AND CARE THROUGHOUT THE DAY. NO S/S OF RESP DISTRESS OR C/O PAIN AT THIS TIME. ALL SAFETY MEASURES IN PLACE, BED IN LOWEST LOCKED POSITION, SR UP X3, CALL LIGHT WITHIN REACH. WILL ENDORSE TO PIZZA DELIVERY DRIVER NURSE FOR RAJINDER.
--- NOTE | 2022-02-06 19:40 | NUR ---
TELE/RN OPENING NOTE RECEIVED PATIENT RESTING IN BED. AWAKE, ALERT AND ORIENTED X 4. ABLE TO MAKE NEEDS KNOWN. DENIES PAIN AT THIS TIME. CONTINUES ON ROOM AIR WITH NO S/SX OF RESPIRATORY DISTRESS NOTED. IV ACCESS TO LEFT FOREARM MIDLINE #18G INTACT AND PATENT. CONTINUES ON IVF NS @ 100ML/HR. CONTINUES ON IV ABX. COLOSTOMY BAG IN PLACE WITH MINIMAL AMOUNTS OF STOOL NOTED AT THIS TIME. PATIENT EMPTIES COLOSTOMY HIMSELF. CALL LIGHT WITHIN REACH. ASPIRATION, FALL AND SAFETY PRECAUTIONS MAINTAINED. WILL CONTINUE TO MONITOR.
[2022-02-06 20:00] VITALS: BP 120/83
[2022-02-06] MEDS: TRAZODONE 50 MG TABLET PO SCH (22:00)
[2022-02-06] MEDS: TAMSULOSIN 0.4 MG CAP.SR.24H PO SCH (22:00)
[2022-02-07] VITALS: BP 144/80
[2022-02-07] MEDS: VANCOMYCIN 1 GM in IV D5W 250ml IV SCH ×2 (01:24→19:40)
[2022-02-07] MEDS: MORPHINE SULFATE INJ 2 MG/ML DISP.SYRIN IV PRN ×5 (02:10→21:20)
[2022-02-07 04:00] VITALS: BP 136/55
[2022-02-07] MEDS: PIPERACILLIN /TAZOBACTAM 3.375 G in IV D5W 50 ML IV SCH ×4 (06:00→23:36)
--- NOTE | 2022-02-07 06:40 | NUR ---
TELE/RN CLOSING NOTE PATIENT CURRENTLY RESTING IN BED. AWAKE, ALERT AND ORIENTED X 4. ABLE TO MAKE NEEDS KNOWN. DENIES PAIN AT THIS TIME. CONTINUES ON ROOM AIR WITH NO S/SX OF RESPIRATORY DISTRESS NOTED. IV ACCESS TO LEFT FOREARM MIDLINE #18G INTACT AND PATENT. CONTINUES ON IVF NS @ 100ML/HR. CONTINUES ON IV ABX. COLOSTOMY BAG IN PLACE WITH MINIMAL AMOUNTS OF STOOL NOTED AT THIS TIME. PATIENT EMPTIES COLOSTOMY HIMSELF. CALL LIGHT WITHIN REACH. ASPIRATION, FALL AND SAFETY PRECAUTIONS MAINTAINED. WILL ENDORSE PLAN OF CARE TO ONCOMING SHIFT.
[2022-02-07 06:53] LABS: BASOPHILS % (AUTO) 0.5 % (0.0-2.0); HEMATOCRIT 45 % (39-51); HEMOGLOBIN 14.8 g/dL (13.5-17.5); LYMPHOCYTES # (AUTO) 0.9 K/uL (0.8-4.8); LYMPHOCYTES % (AUTO) 13.6 % (20.0-44.0); MEAN CORPUSCULAR HGB CONC 33 g/dl (31.0-36.0); MEAN CORPUSCULAR VOLUME 98 fL (80-96); MONOCYTES # (AUTO) 1.1 K/uL (0.1-1.30); MONOCYTES % (AUTO) 16.3 % (2.0-12.0); NEUTROPHILS # (AUTO) 4.3 K/uL (1.8-8.9); NEUTROPHILS % (AUTO) 65.6 % (43.0-81.0); PLATELET COUNT (AUTO) 229 K/uL (150-450); RED BLOOD CELL COUNT(AUTO) 4.62 MIL/uL (4.5-6.0); WHITE BLOOD COUNT (AUTO) 6.5 K/uL (4.3-11.0)
[2022-02-07 06:57] LABS: CALCIUM, SERUM 9.5 mg/dL (8.5-10.1); CREATININE 1.5 mg/dL (0.6-1.3); MAGNESIUM 2.2 mg/dL (1.8-2.4); PHOSPHORUS 3.7 mg/dL (2.5-4.9); POTASSIUM 4.5 mmol/L (3.5-5.1)
--- NOTE | 2022-02-07 07:12 | NUR ---
RN OPENING NOTE RECEIVED PT IN BED RESTING, A/O X4, ON RA SATING AT 99%. RESPIRATORY EVEN AND UNLABORED, NO SOB NOTED. REMAIN AFEBRILE. NO S/S OF DISTRESS NOTED. RUNNING WITH NS 1L @ 100ML/HR. IV ACCESS AT L FA MIDLINE 18G. ALL SAFETY MEASURES IN PLACE, BED IN LOWEST LOCKED POSITION, CALL LIGHT WITHIN REACH, SR UP X2, WILL CONTINUE TO MONITOR THROUGHOUT SHIFT.
[2022-02-07 08:00] VITALS: BP 155/95
[2022-02-07] MEDS: METOPROLOL TARTRATE 25 MG TABLET PO SCH ×2 (08:48→16:49)
[2022-02-07] MEDS: PREGABALIN 25 MG CAPSULE PO SCH ×2 (08:48→16:49)
[2022-02-07] MEDS: ATORVASTATIN 10 MG TABLET PO SCH (08:48)
[2022-02-07] MEDS: ASPIRIN 81 MG TAB.CHEW PO SCH (08:49)
[2022-02-07] MEDS: ALLOPURINOL 100 MG TABLET PO SCH (08:49)
[2022-02-07] MEDS: SERTRALINE HCL 50 MG TABLET PO SCH ×2 (08:50→16:49)
[2022-02-07] MEDS: FUROSEMIDE 40 MG/4 ML VIAL IV SCH (08:50)
[2022-02-07] MEDS: Z GUARD REMEDY 4 OZ OINT TP SCH (08:50)
[2022-02-07] MEDS: CLOTRIMAZOLE 1% 15 GM TUBE TP SCH ×2 (08:51→16:50)
[2022-02-07] MEDS: ENOXAPARIN SODIUM 100 MG/ML DISP.SYRIN SQ SCH ×2 (08:53→21:18)
[2022-02-07] MEDS: DILTIAZEM HCL CD 240 MG PO SCH (09:45)
[2022-02-07 12:00] VITALS: BP 118/81
--- NOTE | 2022-02-07 15:40 | NUR ---
RN NOTES COLLECTED WOUND CULTURE FROM ABDOMEN. SPECIMEN IN FRIDGE. ALSO NOTED THAT SPECIMEN COLLECTED FROM YESTERDAY MORNING SHIFT OF BUTTOCKS STILL IN FRIDGE.
[2022-02-07 16:00] VITALS: BP 123/77
--- NOTE | 2022-02-07 18:30 | NUR ---
RN CLOSING NOTES PT IS IN BED RESTING, A/O X4. PT ON RA SATING AT 99%, IV ACCESS NOW AT L FA MIDLINE WITH NS RUNNING AT 100ML/HR FOR HYDRATION. PT TOLERATED ALL INTERVENTIONS AND CARE THROUGHOUT THE DAY. NO S/S OF RESP DISTRESS OR C/O PAIN AT THIS TIME. ALL SAFETY MEASURES IN PLACE, BED IN LOWEST LOCKED POSITION, SR UP X3, CALL LIGHT WITHIN REACH. WILL ENDORSE TO VISION MIXER NURSE FOR RAJINDER.
--- NOTE | 2022-02-07 19:40 | NUR ---
RN OPENING NOTE RECEIVED PATIENT RESTING IN BED. AWAKE, ALERT AND ORIENTED X 4 AND VERBALLY RESPONSIVE. ON ROOM AIR AND PT TOLERATED WELL. BREATHING EVEN AND UNLABORED. IV ACCESS TO LEFT FOREARM MIDLINE #18G INTACT AND PATENT. RUNNING IVF NS @ 100ML/HR. STILL C/O PAIN AROUND THE ABDOMEN AREA. MORPHINE GIVEN ON PREVIOUS SHIFT. COLOSTOMY BAG IN PLACE WITH MODERATE AMOUNTS OF STOOL. ALL SAFETY MEASURE IN PLACE. SIDE RAILS UP X2, BED IN LOWEST POSITION AND LOCKED. PLACE CALL LIGHT WITHIN REACH. WILL CONTINUE TO MONITOR.
[2022-02-07 20:00] VITALS: BP 159/77
[2022-02-07] MEDS: IV NS 0.9% 1,000 ML IV PRN (21:04)
[2022-02-07] MEDS: TRAZODONE 50 MG TABLET PO SCH (21:16)
[2022-02-07] MEDS: TAMSULOSIN 0.4 MG CAP.SR.24H PO SCH (21:16)
--- NOTE | 2022-02-07 21:28 | NUR ---
RN NOTES: PT C/O PAIN AROUND THE ABDOMEN AREA. MORPHINE IV PUSH GIVEN AND PT TOLERATED WELL. WILL CONTINUE TO MONITOR
--- NOTE | 2022-02-07 22:45 | NUR ---
RN NOTES: PT'S HEART RATE GOES TO [place] 42-58 B[address] JULIO GIPSON AT THIS MOMENT. WILL CONTINUE TO MONITOR.
[2022-02-08] VITALS: BP 136/99
[2022-02-08 04:00] VITALS: BP 125/78
[2022-02-08] MEDS: MORPHINE SULFATE INJ 2 MG/ML DISP.SYRIN IV PRN ×4 (04:28→20:33)
--- NOTE | 2022-02-08 04:44 | NUR ---
RN NOTES: PT C/O PAIN, 9/10 PAIN SCALE ON ABDOMEN AREA. MORPHINE IV GIVEN AND PT TOLERATED WELL. WILL CONTINUE TO MONITOR
[2022-02-08] MEDS: PIPERACILLIN /TAZOBACTAM 3.375 G in IV D5W 50 ML IV SCH ×3 (05:19→17:01)
--- NOTE | 2022-02-08 06:30 | NUR ---
RN CLOSING NOTES: PATIENT RESTING IN BED. AWAKE, ALERT AND ORIENTED X 4 AND VERBALLY RESPONSIVE. ON ROOM AIR, O2 SAT 92% AND PT TOLERATED WELL. BREATHING EVEN AND UNLABORED. IV ACCESS TO LEFT FOREARM MIDLINE #18G INTACT AND PATENT. RUNNING IVF NS @ 100ML/HR. PAIN MEDICATIONS ON PRN ORDERED. NO ACUTE DISTRESS. COLOSTOMY BAG IN PLACE WITH MODERATE AMOUNTS OF STOOL. ALL DUE MEDS GIVEN ORDERED. ALL SAFETY MEASURE IN PLACE. SIDE RAILS UP X2, BED IN LOWEST POSITION AND LOCKED. PLACE CALL LIGHT WITHIN REACH. WILL ENDORSE TO MORNING SHIFT NURSE.
--- NOTE | 2022-02-08 07:09 | NUR ---
RN OPENING NOTE RECEIVED PATIENT RESTING IN BED. A/O X 4. ON ROOM AIR AND PT TOLERATED WELL. BREATHING EVEN AND UNLABORED. IV ACCESS TO LEFT FOREARM MIDLINE #18G INTACT AND PATENT. RUNNING IVF NS @ 100ML/HR. COLOSTOMY BAG IN PLACE WITH MODERATE AMOUNTS OF STOOL. ALL SAFETY MEASURE IN PLACE. SIDE RAILS UP X2, BED IN LOWEST POSITION AND LOCKED. PLACE CALL LIGHT WITHIN REACH. WILL CONTINUE TO MONITOR THROUGHOUT SHIFT.
[2022-02-08 07:21] LABS: CALCIUM, SERUM 8.8 mg/dL (8.5-10.1); CREATININE 1.5 mg/dL (0.6-1.3); POTASSIUM 5.3 mmol/L (3.5-5.1)
[2022-02-08 08:00] VITALS: BP 139/65
[2022-02-08] MEDS: METOPROLOL TARTRATE 25 MG TABLET PO SCH ×2 (08:36→16:48)
[2022-02-08] MEDS: ATORVASTATIN 10 MG TABLET PO SCH (08:37)
[2022-02-08] MEDS: PREGABALIN 25 MG CAPSULE PO SCH ×2 (08:37→16:52)
[2022-02-08] MEDS: ALLOPURINOL 100 MG TABLET PO SCH (08:37)
[2022-02-08] MEDS: DILTIAZEM HCL CD 240 MG PO SCH (08:37)
[2022-02-08] MEDS: FUROSEMIDE 40 MG/4 ML VIAL IV SCH (08:38)
[2022-02-08] MEDS: Z GUARD REMEDY 4 OZ OINT TP SCH (08:38)
[2022-02-08] MEDS: ASPIRIN 81 MG TAB.CHEW PO SCH (08:38)
[2022-02-08] MEDS: SERTRALINE HCL 50 MG TABLET PO SCH ×2 (08:38→16:51)
[2022-02-08] MEDS: CLOTRIMAZOLE 1% 15 GM TUBE TP SCH ×2 (08:41→16:49)
[2022-02-08] MEDS: ENOXAPARIN SODIUM 100 MG/ML DISP.SYRIN SQ SCH ×2 (08:41→20:38)
[2022-02-08] MEDS: ONDANSETRON HCL/PF 4 MG/2 ML VIAL IVP PRN (09:02)
[2022-02-08 12:00] VITALS: BP 108/49
[2022-02-08] MEDS ORDERED: SODIUM POLYSTYRENE SULFONATE 15 G/60 ML BOTTLE PO ONE (12:00)
[2022-02-08] MEDS: VANCOMYCIN 1 GM in IV D5W 250ml IV SCH (14:19)
[2022-02-08 16:00] VITALS: BP 99/66
--- NOTE | 2022-02-08 18:38 | NUR ---
RN CLOSING NOTES PT IS IN BED RESTING, A/O X4. PT ON RA SATING AT 99%, IV ACCESS AT L FA MIDLINE WITH NS RUNNING AT 100ML/HR FOR HYDRATION. PT TOLERATED ALL INTERVENTIONS AND CARE THROUGHOUT THE DAY. NO S/S OF RESP DISTRESS OR C/O PAIN AT THIS TIME. ALL SAFETY MEASURES IN PLACE, BED IN LOWEST LOCKED POSITION, SR UP X3, CALL LIGHT WITHIN REACH. WILL ENDORSE TO ROBOTIC WELDING OPERATOR NURSE FOR RAJINDER.
--- NOTE | 2022-02-08 19:45 | NUR ---
RN OPENING NOTES RECEIVED PATIENT RESTING IN BED. AWAKE, ALERT AND ORIENTED X 4 AND VERBALLY RESPONSIVE. ON ROOM AIR AND PT TOLERATED WELL. BREATHING EVEN AND UNLABORED. IV ACCESS TO LEFT FOREARM MIDLINE #18G INTACT AND PATENT. RUNNING IVF NS @ 100ML/HR. COLOSTOMY BAG IN PLACE WITH MODERATE AMOUNTS OF STOOL. ALL SAFETY MEASURE IN PLACE. SIDE RAILS UP X2, BED IN LOWEST POSITION AND LOCKED. PLACE CALL LIGHT WITHIN REACH. WILL CONTINUE TO MONITOR.
[2022-02-08 20:00] VITALS: BP 132/69
--- NOTE | 2022-02-08 20:38 | NUR ---
RN NOTES: PT C/O PAIN AROUND THE ABDOMINAL AREA, 8/10 PAIN SCALE. MORPHINE GIVEN PER PRN ORDERED. PT TOLERATED WELL. WILL CONTINUE TO MONITOR
[2022-02-08] MEDS: IV NS 0.9% 1,000 ML IV PRN (20:57)
[2022-02-08] MEDS: TAMSULOSIN 0.4 MG CAP.SR.24H PO SCH (21:06)
[2022-02-08] MEDS: TRAZODONE 50 MG TABLET PO SCH (21:06)
[2022-02-09] VITALS: BP 136/65
[2022-02-09] MEDS: PIPERACILLIN /TAZOBACTAM 3.375 G in IV D5W 50 ML IV SCH ×4 (00:04→17:01)
[2022-02-09] MEDS: MORPHINE SULFATE INJ 2 MG/ML DISP.SYRIN IV PRN ×4 (03:10→19:59)
[2022-02-09 04:00] VITALS: BP 128/74
--- NOTE | 2022-02-09 06:37 | NUR ---
RN CLOSING NOTES PATIENT RESTING IN BED. AWAKE, ALERT AND ORIENTED X 4 AND VERBALLY RESPONSIVE. ON ROOM AIR, O2 SAT 96% AND PT TOLERATED WELL. BREATHING EVEN AND UNLABORED. IV ACCESS TO LEFT FOREARM MIDLINE #18G INTACT AND PATENT. RUNNING IVF NS @ 100ML/HR. COLOSTOMY BAG IN PLACE WITH MODERATE AMOUNTS OF STOOL. ALL DUE MEDS GIVEN ORDERED. ALL SAFETY MEASURE IN PLACE. SIDE RAILS UP X2, BED IN LOWEST POSITION AND LOCKED. PLACE CALL LIGHT WITHIN REACH. WILL ENDORSE TO MORNING SHIFT NURSE.
[2022-02-09 06:42] LABS: CALCIUM, SERUM 8.6 mg/dL (8.5-10.1); CREATININE 1.4 mg/dL (0.6-1.3); POTASSIUM 4.4 mmol/L (3.5-5.1)
--- NOTE | 2022-02-09 07:46 | NUR ---
RN OPENING NOTE PATIENT RECEIVED IN BED, RESTING. PATIENT ON ROOM AIR WITH NO SIGNS OF LABORED BREATHING AT THIS TIME. LEFT FA MIDLINE 18G RUNNING NS AT 100CC/HR. COLOSTOMY BAG IN PLACE. NO SIGNS OF ACUTE DISTRESS NOTED AT THIS TIME. BED LOCKED AND IN LOWEST POSITION, CALL LIGHT WITHIN REACH, 2 SIDE RAILS UP. WILL CONTINUE TO MONITOR.
[2022-02-09 08:00] VITALS: BP 140/69
[2022-02-09] MEDS: VANCOMYCIN 1 GM in IV D5W 250ml IV SCH (08:45)
[2022-02-09] MEDS: PREGABALIN 25 MG CAPSULE PO SCH ×2 (08:46→16:50)
[2022-02-09] MEDS: ATORVASTATIN 10 MG TABLET PO SCH (08:46)
[2022-02-09] MEDS: METOPROLOL TARTRATE 25 MG TABLET PO SCH ×2 (08:46→16:22)
[2022-02-09] MEDS: ALLOPURINOL 100 MG TABLET PO SCH (08:46)
[2022-02-09] MEDS: SERTRALINE HCL 50 MG TABLET PO SCH ×2 (08:46→16:49)
[2022-02-09] MEDS: FUROSEMIDE 40 MG/4 ML VIAL IV SCH (08:47)
[2022-02-09] MEDS: DILTIAZEM HCL CD 240 MG PO SCH (08:47)
[2022-02-09] MEDS: CLOTRIMAZOLE 1% 15 GM TUBE TP SCH ×2 (08:47→16:51)
[2022-02-09] MEDS: ASPIRIN 81 MG TAB.CHEW PO SCH (08:47)
[2022-02-09] MEDS: Z GUARD REMEDY 4 OZ OINT TP SCH (08:48)
[2022-02-09] MEDS: IV NS 0.9% 1,000 ML IV PRN ×2 (09:28→18:33)
[2022-02-09] MEDS ORDERED: FUROSEMIDE 40 MG TABLET PO SCH (10:00)
[2022-02-09] MEDS: APIXABAN 5 MG TABLET PO SCH ×2 (10:15→16:50)
[2022-02-09 12:00] VITALS: BP 108/57
[2022-02-09 16:00] VITALS: BP 104/52
--- NOTE | 2022-02-09 18:39 | NUR ---
RN CLOSING NOTE PATIENT REMAINS IN BED, AWAKE, A&OX4. PATIENT ON ROOM AIR WITH NO SIGNS OF LABORED BREATHING AT THIS TIME. LEFT FA MIDLINE 18G RUNNING NS AT 100CC/HR. COLOSTOMY BAG IN PLACE. NO SIGNS OF ACUTE DISTRESS NOTED AT THIS TIME. ALL NEEDS ATTENDED DURING SHIFT. BED LOCKED AND IN LOWEST POSITION, CALL LIGHT WITHIN REACH, 2 SIDE RAILS UP. WILL ENDORSE TO MILL AND COAL TRANSPORT OPERATOR NURSE.
[2022-02-09 20:00] VITALS: BP 126/60
[2022-02-09] MEDS: TAMSULOSIN 0.4 MG CAP.SR.24H PO SCH (21:42)
[2022-02-09] MEDS: TRAZODONE 50 MG TABLET PO SCH (21:42)
[2022-02-10] VITALS: BP 127/53
[2022-02-10] MEDS: PIPERACILLIN /TAZOBACTAM 3.375 G in IV D5W 50 ML IV SCH ×4 (00:09→17:02)
[2022-02-10] MEDS: VANCOMYCIN 1 GM in IV D5W 250ml IV SCH ×2 (01:04→21:10)
[2022-02-10] MEDS: MORPHINE SULFATE INJ 2 MG/ML DISP.SYRIN IV PRN ×5 (01:04→23:11)
[2022-02-10 04:00] VITALS: BP 135/66
[2022-02-10] MEDS: IV NS 0.9% 1,000 ML IV PRN ×2 (05:40→16:16)
--- NOTE | 2022-02-10 06:37 | NUR ---
RN notes Resting comfortably in bed with no distress noted. Breathing even and unlabored. On room air, tolerating well. Complaining of pain in the abdominal area because of the wound, Morphine sulfate 0.5mg administered every 4hours as requested, with relief. Vital signs wnl. Kept clean and dry. Will endorse to next shift for continuity of care.
[2022-02-10 07:12] LABS: BASOPHILS % (AUTO) 0.7 % (0.0-2.0); EOSINOPHILS % (AUTO) 4.8 % (0.0-6.0); HEMATOCRIT 35 % (39-51); HEMOGLOBIN 11.5 g/dL (13.5-17.5); LYMPHOCYTES # (AUTO) 0.7 K/uL (0.8-4.8); MEAN CORPUSCULAR HGB CONC 33 g/dl (31.0-36.0); MEAN CORPUSCULAR VOLUME 96 fL (80-96); MONOCYTES # (AUTO) 0.9 K/uL (0.1-1.30); MONOCYTES % (AUTO) 13.4 % (2.0-12.0); NEUTROPHILS # (AUTO) 4.5 K/uL (1.8-8.9); NEUTROPHILS % (AUTO) 70.1 % (43.0-81.0); PLATELET COUNT (AUTO) 211 K/uL (150-450); RED BLOOD CELL COUNT(AUTO) 3.69 MIL/uL (4.5-6.0); WHITE BLOOD COUNT (AUTO) 6.4 K/uL (4.3-11.0)
[2022-02-10 07:18] LABS: CALCIUM, SERUM 7.9 mg/dL (8.5-10.1); CREATININE 1.1 mg/dL (0.6-1.3); POTASSIUM 3.4 mmol/L (3.5-5.1)
[2022-02-10 08:00] VITALS: BP 144/74
[2022-02-10] MEDS: METOPROLOL TARTRATE 25 MG TABLET PO SCH ×2 (08:29→16:11)
[2022-02-10] MEDS: ALLOPURINOL 100 MG TABLET PO SCH (08:29)
[2022-02-10] MEDS: ATORVASTATIN 10 MG TABLET PO SCH (08:29)
[2022-02-10] MEDS: ASPIRIN 81 MG TAB.CHEW PO SCH (08:29)
[2022-02-10] MEDS: PREGABALIN 25 MG CAPSULE PO SCH ×2 (08:30→16:10)
[2022-02-10] MEDS: DILTIAZEM HCL CD 240 MG PO SCH (08:30)
[2022-02-10] MEDS: SERTRALINE HCL 50 MG TABLET PO SCH ×2 (08:30→16:11)
[2022-02-10] MEDS: APIXABAN 5 MG TABLET PO SCH ×2 (08:31→16:12)
--- NOTE | 2022-02-10 08:44 | NUR ---
RN NOTE PATIENT REFUSING TO BE CLEANED RIGHT NOW. UNABLE TO PLACE ZGUARD AND ABX LOTION ON ABD AT THIS TIME.
[2022-02-10] MEDS: CLOTRIMAZOLE 1% 15 GM TUBE TP SCH ×2 (08:45→16:12)
[2022-02-10] MEDS: Z GUARD REMEDY 4 OZ OINT TP SCH (08:45)
[2022-02-10] MEDS ORDERED: POTASSIUM CHLORIDE 20 MEQ TAB.PRT.SR PO SCH (10:00)
[2022-02-10 12:00] VITALS: BP 127/52
[2022-02-10 16:00] VITALS: BP 127/49
--- NOTE | 2022-02-10 18:36 | NUR ---
RN CLOSING NOTE PATIENT REMAINS IN BED, RESTING. PATIENT ON ROOM AIR WITH NO SIGNS OF LABORED BREATHING AT THIS TIME. LEFT FA MIDLINE 18G RUNNING NS AT 100CC/HR. COLOSTOMY BAG IN PLACE. NO SIGNS OF ACUTE DISTRESS NOTED AT THIS TIME. ALL NEEDS ATTENDED DURING SHIFT. BED LOCKED AND IN LOWEST POSITION, CALL LIGHT WITHIN REACH, 2 SIDE RAILS UP. WILL ENDORSE TO CAB STARTER NURSE.
[2022-02-10 20:00] VITALS: BP 128/72
[2022-02-10] MEDS: TRAZODONE 50 MG TABLET PO SCH (21:09)
[2022-02-10] MEDS: TAMSULOSIN 0.4 MG CAP.SR.24H PO SCH (21:10)
[2022-02-11] VITALS: BP 132/77
[2022-02-11] MEDS: PIPERACILLIN /TAZOBACTAM 3.375 G in IV D5W 50 ML IV SCH ×3 (01:29→11:23)
[2022-02-11] MEDS: IV NS 0.9% 1,000 ML IV PRN (01:50)
--- NOTE | 2022-02-11 02:20 | NUR ---
RN notes Alert and oriented, verbally able to communicate notes. No distress noted. On room air well tolerated. Complaining of abdominal wound pain, morphine sulfate 1mg administered every 4 hours as requested by the patient, with relief. Vital signs wnl. No significant change of condition. Kept clean and dry. Will endorse to next shift for continuity of care
[2022-02-11] MEDS: MORPHINE SULFATE INJ 2 MG/ML DISP.SYRIN IV PRN ×3 (03:44→11:58)
[2022-02-11 04:00] VITALS: BP 132/77
[2022-02-11 07:00] LABS: CALCIUM, SERUM 8.8 mg/dL (8.5-10.1); CREATININE 1.1 mg/dL (0.6-1.3); POTASSIUM 4.2 mmol/L (3.5-5.1)
[2022-02-11] MEDS ORDERED: AMOX-430 PO (07:37)
[2022-02-11] MEDS ORDERED: DOXY100C2 PO (07:37)
[2022-02-11 08:00] VITALS: BP 113/51
[2022-02-11] MEDS ORDERED: FUROSEMIDE 40 MG TABLET PO SCH (09:00)
[2022-02-11] MEDS: PREGABALIN 25 MG CAPSULE PO SCH (09:25)
[2022-02-11] MEDS: DILTIAZEM HCL CD 240 MG PO SCH (09:27)
[2022-02-11] MEDS: SERTRALINE HCL 50 MG TABLET PO SCH (09:27)
[2022-02-11] MEDS: ATORVASTATIN 10 MG TABLET PO SCH (09:27)
[2022-02-11] MEDS: ALLOPURINOL 100 MG TABLET PO SCH (09:28)
[2022-02-11] MEDS: METOPROLOL TARTRATE 25 MG TABLET PO SCH (09:28)
[2022-02-11] MEDS: ASPIRIN 81 MG TAB.CHEW PO SCH (09:28)
[2022-02-11] MEDS: APIXABAN 5 MG TABLET PO SCH (09:29)
[2022-02-11] MEDS: Z GUARD REMEDY 4 OZ OINT TP SCH (09:31)
[2022-02-11] MEDS: CLOTRIMAZOLE 1% 15 GM TUBE TP SCH (09:31)
[2022-02-11 12:00] VITALS: BP 116/56
--- NOTE | 2022-02-11 13:50 | NUR ---
CARPET INSTALLATION SPECIALIST NOTE PT STABLE AND READY FOR DISCHARGE PER MD. PATIENT ON ROOM AIR WITH NO SIGNS OF LABORED BREATHING AT THIS TIME. LEFT FA MIDLINE REMOVED FULLY INTACT. SITE BANDAGED. COLOSTOMY BAG IN PLACE. NO SIGNS OF ACUTE DISTRESS NOTED AT THIS TIME. PT VERBALLY CONFIRMED UNDERSTANDING OF DISCHARGE ORDERS. PT MADE AWARE OF NEED FOR HOME HEALTH VISITS AND F/U WITH PCP X 1 WEEK. PT CHOSE TO LEAVE VIA [facility] AND WAS GIVEN A VOUCHER. PT DISCHARGED IN STABLE CONDITION.
[2022-02-11] MEDS ORDERED: DOXYCYCLINE HYCLATE (100 MG) 100 MG TABLET PO SCH (17:00)
[2022-02-11] MEDS ORDERED: AMOX/CLAVULANATE 875 MG TABLET PO SCH (21:00)
== END 2022-02-11 20:10 | disposition home health service (06) | DRG 393 ==
LOC: ER 11:33 → TELE1 13:48 → UNDOADMIN 13:48 → TRANSITION 17:45 → TELE1 19:13
PROVIDERS: ADMIT Registered Nurse; ATTEND Nurse Practitioner Acute Care
PROC: 05H533Z Insertion of Infusion Device into Right Subclavian Vein, Percutaneous Approach (ICD-10-PCS; principal; 2022-02-05)
PROC: B546ZZA Ultrasonography of Right Subclavian Vein, Guidance (ICD-10-PCS; 2022-02-05)
PROC: 05H633Z Insertion of Infusion Device into Left Subclavian Vein, Percutaneous Approach (ICD-10-PCS; 2022-02-06)
PROC: B547ZZA Ultrasonography of Left Subclavian Vein, Guidance (ICD-10-PCS; 2022-02-06)
DX: K94.02 Colostomy infection (principal); N17.0 Acute kidney failure with tubular necrosis; J18.9 Pneumonia, unspecified organism; L03.311 Cellulitis of abdominal wall; D68.59 Other primary thrombophilia; Z68.41 Body mass index [BMI] 40.0-44.9, adult; I11.0 Hypertensive heart disease with heart failure; R07.9 Chest pain, unspecified; E11.22 Type 2 diabetes mellitus with diabetic chronic kidney disease; Y83.8 Other surgical procedures as the cause of abnormal reaction of the patient, or of later complication, without mention of misadventure at the time of the procedure; E87.5 Hyperkalemia; E66.01 Morbid (severe) obesity due to excess calories; F41.9 Anxiety disorder, unspecified; I25.10 Atherosclerotic heart disease of native coronary artery without angina pectoris; I48.91 Unspecified atrial fibrillation; Z79.01 Long term (current) use of anticoagulants; Z87.891 Personal history of nicotine dependence; Z90.49 Acquired absence of other specified parts of digestive tract; Z74.09 Other reduced mobility; N40.0 Benign prostatic hyperplasia without lower urinary tract symptoms; Z20.822 Contact with and (suspected) exposure to COVID-19; I50.9 Heart failure, unspecified; Z87.01 Personal history of pneumonia (recurrent); Z56.0 Unemployment, unspecified; S31.000A Unspecified open wound of lower back and pelvis without penetration into retroperitoneum, initial encounter; X58.XXXA Exposure to other specified factors, initial encounter; Y93.9 Activity, unspecified; Y92.009 Unspecified place in unspecified non-institutional (private) residence as the place of occurrence of the external cause; K58.9 Irritable bowel syndrome, unspecified
CPT/HCPCS: 36410; 36415; 71045-TC; 76700-TC; 80048-TC; 80053-TC; 80076-TC; 80202-TC; 81001; 83605-TC; 83735-TC; 84100-TC; 84443-TC; 84484-TC; 85025-TC; 86803; 87040-TC; 87070-TC; 87081-TC; 87806; 93307-TC; 97116-TC; 97530-TC; A6403; C9803; G0378; J1650; J1940; J2270; J2405; J2543; J3370; J7030; J7050; J7060; Q9967; U0003

== ENCOUNTER 2022-03-01 09:46 | Emergency (ER) | payer MEDICARE, OTHER ==
[~2022-03-01] VITALS: Ht 182.9 cm; Wt 163.3 kg
[~2022-03-01 09:46] MED LIST changes: +AMOX-430 PO; +DOXY100C2 PO; -OXYC-128 PO; -POTA15TA11 PO; +PREG-58 PO; -PREG50CA PO
--- NOTE | 2022-03-01 10:15 | NUR ---
Note cr in EDM - 03/01/22 at 1016 by GAVIOTA c/o sob x 3 days and abd pain s/p oral anbiotic for cellulitis. Oxygen in room air is at 97%. Respiration regular. Denies pain. Will continue to monitor the patient.
--- NOTE | 2022-03-01 10:15 | NUR ---
c/o sob x 3 days and abd pain 4/10 s/p oral anbiotic for cellulitis. Oxygen in room air is at 97%. Respiration regular. Will continue to monitor the patient.
[2022-03-01 10:46] LABS: BASOPHILS % (AUTO) 0.5 % (0.0-2.0); EOSINOPHILS % (AUTO) 3.1 % (0.0-6.0); HEMATOCRIT 37 % (39-51); HEMOGLOBIN 11.9 g/dL (13.5-17.5); LYMPHOCYTES # (AUTO) 0.7 K/uL (0.8-4.8); LYMPHOCYTES % (AUTO) 11.1 % (20.0-44.0); MEAN CORPUSCULAR HGB CONC 33 g/dl (31.0-36.0); MEAN CORPUSCULAR VOLUME 96 fL (80-96); MONOCYTES # (AUTO) 0.8 K/uL (0.1-1.30); MONOCYTES % (AUTO) 12.5 % (2.0-12.0); NEUTROPHILS # (AUTO) 4.9 K/uL (1.8-8.9); NEUTROPHILS % (AUTO) 72.8 % (43.0-81.0); PLATELET COUNT (AUTO) 174 K/uL (150-450); WHITE BLOOD COUNT (AUTO) 6.7 K/uL (4.3-11.0)
--- NOTE | 2022-03-01 10:49 | NUR ---
The patient is taken to CT via [facility]
--- NOTE | 2022-03-01 10:55 | NUR ---
The patient is back from CT via [facility]
[2022-03-01] MEDS ORDERED: MORPHINE SULFATE INJ 2 MG/ML DISP.SYRIN IV ONE (11:00)
[2022-03-01] MEDS ORDERED: MORPHINE SULFATE INJ 4 MG/ML DISP.SYRIN ONE (11:05)
--- NOTE | 2022-03-01 11:14 | NUR ---
URINE COLLECTED AND SENT TO THE LAB
[2022-03-01 11:35] LABS: CALCIUM, SERUM 9.1 mg/dL (8.5-10.1); CREATININE 1.4 mg/dL (0.6-1.3); POTASSIUM 4.5 mmol/L (3.5-5.1)
[2022-03-01 11:47] LABS: ALBUMIN 2.8 g/dL (3.4-5.0)
[2022-03-01 11:48] LABS: BILIRUBIN,TOTAL 0.5 mg/dL (0.2-1.0); TOTAL PROTEIN, SERUM 7.2 g/dL (6.4-8.2)
[2022-03-01 12:06] LABS: BILIRUBIN,URINE NEGATIVE (NEGATIVE); COLOR,URINE YELLOW (YELLOW); LEUKOCYTE ESTERASE ,URINE TRACE (NEGATIVE); NITRITE, URINE NEGATIVE (NEGATIVE); PROTEIN,URINE NEGATIVE (NEGATIVE); UGLUCOSE NEGATIVE (NEGATIVE); UROBILINOGEN,URINE 0.2 EU/dL (0.2)
[2022-03-01 12:22] LABS: BACTERIA,URINE None seen /HPF (None Seen); SQUAMOUS EPITHELIAL CELL,UR None Seen /HPF (None Seen)
[2022-03-01] MEDS ORDERED: CLOT15CR27 TP (12:41)
--- NOTE | 2022-03-01 14:36 | NUR ---
CALLED [facility] [phone] ETA AFTER 1700 ROBERTO.
--- NOTE | 2022-03-01 14:51 | NUR ---
[facility] CALLED ETA 60 MINS.
--- NOTE | 2022-03-01 15:43 | NUR ---
[facility] ETA 1620. PT PAYING FOR RIDE.
[2022-03-01 16:07] VITALS: BP 137/82
== END 2022-03-01 16:07 | disposition home or self-care (01) ==
LOC: ER 09:50
DX: R60.9 Edema, unspecified (principal); L30.4 Erythema intertrigo; I11.0 Hypertensive heart disease with heart failure; I50.9 Heart failure, unspecified; I48.91 Unspecified atrial fibrillation; E11.9 Type 2 diabetes mellitus without complications; Z86.69 Personal history of other diseases of the nervous system and sense organs; Z93.3 Colostomy status; Z60.2 Problems related to living alone; Z79.899 Other long term (current) drug therapy
CPT/HCPCS: 36415; 71045; 74176; 80053; 81001; 83880; 84484; 85025; 93005; 96374; 99285; J2270

== ENCOUNTER 2022-05-10 11:27 | Emergency (ER) | payer MEDICARE, OTHER ==
[~2022-05-10] VITALS: Ht 182.9 cm; Wt 158.8 kg
[~2022-05-10 11:27] MED LIST changes: +CLOT15CR27 TP
--- NOTE | 2022-05-10 12:10 | NUR ---
BIBS C/O fever x 2 days. AMBULATORY, PLACED ON BED, AAOX4.
--- NOTE | 2022-05-10 12:20 | NUR ---
SWAB FOR COVID19 AND RAPID INFLUENZA SENT TO LAB
--- NOTE | 2022-05-10 12:40 | NUR ---
SLAGGER. AT BED SIDE
[2022-05-10] MEDS ORDERED: HYDROCODONE/APAP 5/325MG TABLET ONE (12:50)
[2022-05-10] MEDS ORDERED: HYDROCODONE/APAP 5/325MG TABLET PO ONE (13:00)
[2022-05-10 13:02] LABS: BASOPHILS % (AUTO) 0.2 % (0.0-2.0); EOSINOPHILS % (AUTO) 1.2 % (0.0-6.0); HEMATOCRIT 40 % (39-51); HEMOGLOBIN 13.1 g/dL (13.5-17.5); LYMPHOCYTES # (AUTO) 0.5 K/uL (0.8-4.8); LYMPHOCYTES % (AUTO) 6.3 % (20.0-44.0); MEAN CORPUSCULAR HGB CONC 33 g/dl (31.0-36.0); MEAN CORPUSCULAR VOLUME 95 fL (80-96); MONOCYTES % (AUTO) 13.8 % (2.0-12.0); NEUTROPHILS # (AUTO) 5.9 K/uL (1.8-8.9); NEUTROPHILS % (AUTO) 78.5 % (43.0-81.0); PLATELET COUNT (AUTO) 186 K/uL (150-450); RED BLOOD CELL COUNT(AUTO) 4.22 MIL/uL (4.5-6.0); WHITE BLOOD COUNT (AUTO) 7.5 K/uL (4.3-11.0)
--- NOTE | 2022-05-10 13:19 | NUR ---
URINE SAMPLE SENT TO LAB
[2022-05-10 13:20] LABS: CALCIUM, SERUM 8.9 mg/dL (8.5-10.1); CREATININE 1.5 mg/dL (0.6-1.3); POTASSIUM 5.2 mmol/L (3.5-5.1)
--- NOTE | 2022-05-10 13:42 | NUR ---
LAB CALLED ABOUT COVID + RESULT DR. RILEY INFORMED.
[2022-05-10 13:43] LABS: BILIRUBIN,URINE NEGATIVE (NEGATIVE); COLOR,URINE YELLOW (YELLOW); LEUKOCYTE ESTERASE ,URINE SMALL (NEGATIVE); NITRITE, URINE NEGATIVE (NEGATIVE); PROTEIN,URINE TRACE mg/dl (NEGATIVE); UGLUCOSE NEGATIVE (NEGATIVE); UROBILINOGEN,URINE 0.2 EU/dL (0.2)
[2022-05-10 14:30] LABS: RBC,URINE 0-2 /HPF (0-2); SQUAMOUS EPITHELIAL CELL,UR 0-2 /HPF (None Seen); WBC,URINE 0-2 /HPF (0-3)
[2022-05-10 14:31] LABS: BACTERIA,URINE Few /HPF (None Seen)
--- NOTE | 2022-05-10 16:03 | NUR ---
Patient discharged to home in stable condition. Written and verbal after care instructions given. Patient verbalizes understanding of instruction.
[2022-05-10 16:05] VITALS: BP 120/58
== END 2022-05-10 16:03 | disposition home or self-care (01) ==
LOC: ER 11:29
DX: U07.1 COVID-19 (principal); E87.5 Hyperkalemia; I48.91 Unspecified atrial fibrillation; Z79.01 Long term (current) use of anticoagulants; E11.40 Type 2 diabetes mellitus with diabetic neuropathy, unspecified; Z93.3 Colostomy status; I11.0 Hypertensive heart disease with heart failure; I50.9 Heart failure, unspecified; Z79.899 Other long term (current) drug therapy
CPT/HCPCS: 36415; 71045-TC; 80048-TC; 81001; 83880; 84484-TC; 85025-TC; 87086-TC; C9803

== ENCOUNTER 2022-06-13 10:22 | Inpatient (IN) | payer MEDICARE, OTHER ==
[~2022-06-13] VITALS: Ht 182.9 cm; Wt 150.6 kg
--- NOTE | 2022-06-13 10:30 | NUR ---
VANDANA 41 FROM HOME W/ C/O CP AND SOB; ASA 325 MG AND NTG X 1 GIVEN PTO. PT VERBALLY RESPONSIVE. TO ER BED 7.
[2022-06-13 11:07] LABS: BASOPHILS % (AUTO) 0.3 % (0.0-2.0); EOSINOPHILS % (AUTO) 0.7 % (0.0-6.0); HEMATOCRIT 46 % (39-51); HEMOGLOBIN 15.1 g/dL (13.5-17.5); LYMPHOCYTES # (AUTO) 0.8 K/uL (0.8-4.8); LYMPHOCYTES % (AUTO) 7.6 % (20.0-44.0); MEAN CORPUSCULAR HGB CONC 33 g/dl (31.0-36.0); MEAN CORPUSCULAR VOLUME 93 fL (80-96); MONOCYTES # (AUTO) 0.7 K/uL (0.1-1.30); MONOCYTES % (AUTO) 7.2 % (2.0-12.0); NEUTROPHILS # (AUTO) 8.4 K/uL (1.8-8.9); NEUTROPHILS % (AUTO) 84.2 % (43.0-81.0); PLATELET COUNT (AUTO) 262 K/uL (150-450); RED BLOOD CELL COUNT(AUTO) 4.87 MIL/uL (4.5-6.0); WHITE BLOOD COUNT (AUTO) 9.9 K/uL (4.3-11.0)
[2022-06-13 11:40] LABS: ALANINE AMINOTRANSFERASE 60 U/L (12-78); ALBUMIN 3.4 g/dL (3.4-5.0); ALKALINE PHOSPHATASE 72 U/L (46-116); ASPARTATE AMINOTRANSFERASE 33 U/L (15-37); BILIRUBIN,DIRECT 0.1 mg/dL (0.0-0.2); BILIRUBIN,TOTAL 0.5 mg/dL (0.2-1.0); CALCIUM, SERUM 9.5 mg/dL (8.5-10.1); CREATININE 4.5 mg/dL (0.6-1.3); GLUCOSE 117 mg/dL (74-106); TOTAL PROTEIN, SERUM 8.9 g/dL (6.4-8.2); UREA NITROGEN, BLOOD 67 mg/dL (7-18)
--- NOTE | 2022-06-13 11:45 | NUR ---
PT SITTING IN BED, NEEDS MET
[2022-06-13 12:05] LABS: CARBON DIOXIDE 16 mmol/L (21-32); CHLORIDE 100 mmol/L (98-107); POTASSIUM 3.3 mmol/L (3.5-5.1); SODIUM SERUM 135 mmol/L (136-145)
[2022-06-13 12:15] LABS: BILIRUBIN,URINE SMALL (NEGATIVE); COLOR,URINE YELLOW (YELLOW); LEUKOCYTE ESTERASE ,URINE MODERATE (NEGATIVE); NITRITE, URINE NEGATIVE (NEGATIVE); PH,URINE 5.5 (5.0-8.0); PROTEIN,URINE 30 mg/dl (NEGATIVE); UGLUCOSE NEGATIVE (NEGATIVE); UROBILINOGEN,URINE 0.2 EU/dL (0.2)
[2022-06-13] MEDS ORDERED: IV NS 0.9% 1,000 ML IV ONE (12:30)
[2022-06-13] MEDS ORDERED: CEFTRIAXONE 1GM BAG (ER ONLY) 1 GM/50 ML PIGGYBACK IV ONE (12:30)
[2022-06-13 12:37] LABS: WBC,URINE 21-50 /HPF (0-3)
[2022-06-13 12:38] LABS: BACTERIA,URINE Moderate /HPF (None Seen); SQUAMOUS EPITHELIAL CELL,UR Many /HPF (None Seen)
[2022-06-13] MEDS ORDERED: CEFTRIAXONE 1GM BAG (ER ONLY) 50 ML IV ONE (12:41)
[2022-06-13] MEDS ORDERED: ACETAMINOPHEN 325 MG TABLET ONE (12:47)
[2022-06-13] MEDS ORDERED: ONDANSETRON HCL/PF 4 MG/2 ML VIAL IVP PRN (13:00)
[2022-06-13] MEDS ORDERED: MAG HYDROX/AL HYDROX/SIMETH 30 ML UDC PO PRN (13:00)
[2022-06-13] MEDS ORDERED: Z GUARD REMEDY 4 OZ OINT TP PRN (13:00)
[2022-06-13] MEDS ORDERED: MAGNESIUM HYDROXIDE 30 ML UDC PO PRN (13:00)
[2022-06-13] MEDS ORDERED: ALBUTEROL SULFATE 8 GM HFA.AER.AD IH PRN (13:00)
[2022-06-13] MEDS ORDERED: ACETAMINOPHEN 325 MG TABLET PO PRN (13:00)
[2022-06-13] MEDS ORDERED: CEFTRIAXONE 1 G in IV D5W 50 ML IV SCH (13:00)
[2022-06-13] MEDS ORDERED: ZOLPIDEM TARTRATE 5 MG TABLET PO PRN (13:00)
[2022-06-13] MEDS ORDERED: MORPHINE SULFATE INJ 2 MG/ML DISP.SYRIN ONE (13:19)
[2022-06-13] MEDS ORDERED: MORPHINE SULFATE INJ 2 MG/ML DISP.SYRIN IV ONE (13:30)
--- NOTE | 2022-06-13 13:57 | NUR ---
PT AWAKE AND ALERT, NO PRESENT COMPLAINTS. NEEDS MET
--- NOTE | 2022-06-13 14:32 | NUR ---
BED GIVEN 312-2
--- NOTE | 2022-06-13 14:40 | NUR ---
per pharmacy, held [facility]
--- NOTE | 2022-06-13 14:53 | NUR ---
report given to TATE [place]
--- NOTE | 2022-06-13 15:12 | NUR ---
pt transferred to floor following ACLS protocol with RN and EMT. Pt remained stable
--- NOTE | 2022-06-13 15:49 | NUR ---
ADMITTED A 67 MALE PT FROM ER VIA GURNEY WITH IV ACCESS AT RFA, PATENT AND FLUSHING WELL. COVID NEGATIVE. AFEBRILE. ON RA. NO SOB. NO DISTRESS. TRANSFERRED TO BED SAFELY, COMPLETE BODY ASSESSMENT DONE. PICTURE TAKEN. ALL BELONGINGS CHECKED AND RECORDED. ALL SAFETY MEASURES IN PLACE. HOB ELEVATED. CALL LIGHT WITHIN REACH. BED ON LOWEST POSITION AND LOCKED. WILL CLOSELY MONITOR AND CONTINUE PLAN OF CARE.
[2022-06-13] MEDS: LORAZEPAM INJ 2 MG/ML VIAL IV PRN ×2 (16:10→22:13)
[2022-06-13] MEDS: IV NS 0.9% 1,000 ML IV PRN (16:10)
[2022-06-13] MEDS: CLOTRIMAZOLE/BETAMETASONE DIPROPIONATE 15 GM TUBE TP SCH (18:15)
[2022-06-13] MEDS: SERTRALINE HCL 50 MG TABLET PO SCH (18:17)
[2022-06-13] MEDS: TAMSULOSIN 0.4 MG CAP.SR.24H PO SCH (18:17)
[2022-06-13] MEDS: METOPROLOL TARTRATE 25 MG TABLET PO SCH (18:17)
[2022-06-13] MEDS: MORPHINE SULFATE INJ 2 MG/ML DISP.SYRIN IV PRN (18:22)
--- NOTE | 2022-06-13 19:32 | NUR ---
VTE score is 3. md notified. awaiting orders.
--- NOTE | 2022-06-13 19:33 | NUR ---
PT IV ACCESS AT RFA, PATENT AND FLUSHING WELL W NS INFUSING AT 100ML/HR. ON RA. NO SOB. NO DISTRESS. ALL SAFETY MEASURES IN PLACE. HOB ELEVATED. CALL LIGHT WITHIN REACH. BED ON LOWEST POSITION AND LOCKED. WILL ENDORSE TO NEXT NURSE ON DUTY FOR CONTINUITY OF CARE.
[2022-06-13 20:09] VITALS: BP 108/70
[2022-06-13 20:15] VITALS: BP 108/70
--- NOTE | 2022-06-13 22:15 | NUR ---
RN NOTE: ANXIETY/INSOMNIA PATIENT C/O FEELING ANXIOUS AND UNABLE TO SLEEP. PATIENT WANTED TO TAKE ATIVAN AT THIS TIME. PRN ATIVAN 1 MG IV ADMINISTERED ORDERED.
[2022-06-14] VITALS (9 sets, daily range): BP systolic 98–145; BP diastolic 61–75
[2022-06-14] MEDS: MORPHINE SULFATE INJ 2 MG/ML DISP.SYRIN IV PRN ×4 (00:29→20:24)
[2022-06-14] MEDS: LORAZEPAM INJ 2 MG/ML VIAL IV PRN ×3 (04:45→21:32)
[2022-06-14] MEDS: IV NS 0.9% 1,000 ML IV PRN (05:10)
[2022-06-14 06:33] LABS: BASOPHILS % (AUTO) 0.5 % (0.0-2.0); EOSINOPHILS % (AUTO) 1.8 % (0.0-6.0); HEMATOCRIT 42 % (39-51); HEMOGLOBIN 13.7 g/dL (13.5-17.5); LYMPHOCYTES # (AUTO) 1.1 K/uL (0.8-4.8); LYMPHOCYTES % (AUTO) 14.8 % (20.0-44.0); MEAN CORPUSCULAR HGB CONC 33 g/dl (31.0-36.0); MEAN CORPUSCULAR VOLUME 95 fL (80-96); MONOCYTES # (AUTO) 0.9 K/uL (0.1-1.30); MONOCYTES % (AUTO) 11.4 % (2.0-12.0); NEUTROPHILS # (AUTO) 5.4 K/uL (1.8-8.9); NEUTROPHILS % (AUTO) 71.5 % (43.0-81.0); PLATELET COUNT (AUTO) 206 K/uL (150-450); RED BLOOD CELL COUNT(AUTO) 4.38 MIL/uL (4.5-6.0); WHITE BLOOD COUNT (AUTO) 7.5 K/uL (4.3-11.0)
--- NOTE | 2022-06-14 07:06 | NUR ---
ANESTHESIOLOGY TECHNOLOGIST OPENING NOTES RECEIVED PATIENT ASLEEP IN BED, A/Ox4, ON ROOM AIR NO S/S OF RESPIRATORY DISTRESS. IV ACCESS R FA #18G RUNNING NS @100 ML/HR. INTACT AND PATENT, NO S/S OF INFILTRATION. ON TELE MONITORING, SHOWING CONTROLLED A-FIB HR 71. NO C/O HAVE CARDIAC DISTRESS. AMBULATORY WITH ASSISTANCE. CONTINENT USES A URINAL. RLQ COLOSTOMY, DRAINING WELL. NO S/S OF PAIN OR DISCOMFORT. PATIENT HAS HAS MID ABDOMINAL AND ABDOMINAL FOLD REDNESS. SAFETY MEASURES IN PLACE: BED LOCKED AND IN LOWEST POSITION, CALL LIGHT WITHIN REACH, SIDE RAILS UPx2. WILL CONTINUE TO MONITOR. Addendum: 06/14/22 at 1142 by ANTONINO LAL RN ADDENDUM: COLOSTOMY IS ON LLQ NOT RLQ
[2022-06-14 07:14] LABS: CALCIUM, SERUM 8.8 mg/dL (8.5-10.1); MAGNESIUM 1.9 mg/dL (1.8-2.4); PHOSPHORUS 6.1 mg/dL (2.5-4.9); POTASSIUM 3.7 mmol/L (3.5-5.1)
[2022-06-14] MEDS: SERTRALINE HCL 50 MG TABLET PO SCH ×2 (08:08→17:11)
[2022-06-14] MEDS: CLOTRIMAZOLE/BETAMETASONE DIPROPIONATE 15 GM TUBE TP SCH ×2 (08:09→17:11)
[2022-06-14] MEDS: ALLOPURINOL 100 MG TABLET PO SCH (08:09)
--- NOTE | 2022-06-14 08:15 | NUR ---
RN NOTES PATIENT COMPLAINED OF PAIN 06/14, PRN MORPHINE GIVEN @0812, WILL CONTINUE TO MONITOR.
[2022-06-14] MEDS: METOPROLOL TARTRATE 25 MG TABLET PO SCH ×2 (08:22→17:11)
--- NOTE | 2022-06-14 09:43 | NUR ---
WOUND CARE CONSULT: PT PRESENTS WITH REDNESS/RASH TO ABDOMINAL/GROIN FOLDS AND OPEN WOUND TO ABDOMEN WELL OSTOMY, ALL PRESENT ON ADMISSION. DR JULIA ARMANDO CALLED FOR SURGICAL CONSULT. DISCUSSED SKIN PROTECTION AND WOUND CARE WITH NURSING STAFF. PT IS ON ADE ISOFLEX LOW AIRLOSS BED. MD IN AGREEMENT WITH PLAN OF CARE.
[2022-06-14] MEDS: CLOTRIMAZOLE 1% 15 GM TUBE TP SCH ×2 (10:58→17:11)
--- NOTE | 2022-06-14 12:29 | NUR ---
RN NOTES PATIENT ANXIOUS ABOUT HIS CONDITION, PRN LORAZEPAM GIVEN @1221, WILL CONTINUE TO MONITOR PATIENT
[2022-06-14] MEDS ORDERED: CEFTRIAXONE 2 G in IV D5W 100 ML IV SCH (13:00)
--- NOTE | 2022-06-14 14:30 | NUR ---
RN NOTES PATIENT COMPLAINED OF PAIN 06/14, PRN MORPHINE GIVEN @1417 WILL CONTINUE TO MONITOR.
[2022-06-14] MEDS: TAMSULOSIN 0.4 MG CAP.SR.24H PO SCH (17:11)
[2022-06-14] MEDS: SILVER SULFADIAZINE CREAM 25 GM TUBE TP SCH (17:12)
--- NOTE | 2022-06-14 18:38 | NUR ---
CATHODE WASHER CLOSING NOTES PATIENT WATCHING TV IN BED, A/Ox4, STABLE ON ROOM AIR NO S/S OF RESPIRATORY DISTRESS. IV ACCESS R FA #18G RUNNING NS @100 ML/HR. INTACT AND PATENT, NO S/S OF INFILTRATION. ON TELE MONITORING, SHOWING CONTROLLED A-FIB HR 68. NO C/O HAVE CARDIAC DISTRESS. AMBULATORY WITH ASSISTANCE. CONTINENT USES A URINAL. LLQ COLOSTOMY, DRAINING WELL. NO S/S OF PAIN OR DISCOMFORT. PATIENT HAS HAS MID ABDOMINAL WOUND AND ABDOMINAL FOLD REDNESS. SAFETY MEASURES MAINTAINED: BED LOCKED AND IN LOWEST POSITION, CALL LIGHT WITHIN REACH, SIDE RAILS UPx2. WILL ENDORSE TO NEXT SHIFT ANY RAJINDER.
--- NOTE | 2022-06-14 19:30 | NUR ---
SMALL APPLIANCE ASSEMBLY SUPERVISOR NOTES CONTROLLED [id number] ON TELE MONITOR.RECEIVED ON BED A/O X4,OBESE,BREATHING REGULAR,NOT IN ANY FORM OF DISTRESS.IVF NS AT 100ML/HR RATE INFUSING WELL ON RIGHT FORE ARM SALINE LOCK VIA IV PUMP,SITE PATENT.CONTINENT OF URINE,WITH LEFT LOWER QUADRANT COLOSTOMY BAG DRAINING LIQUID TO SOFT STOOL.CALL LIGHT IN REACH,NEEDS ANTICIPATED.
--- NOTE | 2022-06-14 20:24 | NUR ---
CHAYITO YBARRA NOTES HAVING PAIN ON LEFT LOWER QUADRANT,MEDICATED WITH MORPHINE 1MG IV ORDERED. Addendum: 06/15/22 at 0312 by GIRISH STILES RN MORPHINE 2MG IV GIVEN ORDERED.
--- NOTE | 2022-06-14 21:32 | NUR ---
DETENTION DEPUTY NOTES FEELING ANXIOUS,ATIVAN 1MG IV GIVEN ORDERED FOR ANXIETY.
[2022-06-15] VITALS: BP 107/82
[2022-06-15] MEDS: MORPHINE SULFATE INJ 2 MG/ML DISP.SYRIN IV PRN ×4 (02:39→22:42)
--- NOTE | 2022-06-15 02:39 | NUR ---
MONKEY KEEPER NOTES AWAKE,HAVING PAIN ON LEFT LOWER QUADRANT, MORPHINE 2MG IV GIVEN ORDERED.FALL PRECAUTION OBSERVED,BED ALARM
[2022-06-15 04:00] VITALS: BP 111/54
[2022-06-15] MEDS: LORAZEPAM INJ 2 MG/ML VIAL IV PRN ×3 (04:39→23:51)
--- NOTE | 2022-06-15 04:39 | NUR ---
FICTION WRITER NOTES FEELING ANXIOUS,ATIVAN 1MG IV GIVEN ORDERED.VITAL SIGNS STABLE.
[2022-06-15] MEDS: IV NS 0.9% 1,000 ML IV PRN ×2 (04:50→23:59)
--- NOTE | 2022-06-15 06:27 | NUR ---
PRESSER AND BLOCKER KNITTED GOODS NOTES SLEPT WITH INTERVALS,ALWAYS ASKING FOR PAIN MEDICINE EVEN ITS NOT TIME YET,VITAL SIGNS STABLE.ABLE TO EMPTIED COLOSTOMY BAG.FOR DISCHARGE PLANNING.CALL LIGHT IN REACH,NEEDS ATTENDED.
--- NOTE | 2022-06-15 07:35 | NUR ---
RN NOTE- PT AWAKE AOX4, INTERACTIVE, REQUESTED MEDS ON INITIAL INTERACTION W PT. IV TO RAC QUESTIONABLE. WILL TRY TO OBTAIN ML ORDER PT HAS ONGOING MEDICAL ISSUES AND MANY RX. SIDE RAILS UP, BED LOCKED, NEEDS ATTENDED. CALL LIGHT IN REACH. MONITOR / ASSIST
[2022-06-15] MEDS: ALLOPURINOL 100 MG TABLET PO SCH (08:35)
[2022-06-15] MEDS: SERTRALINE HCL 50 MG TABLET PO SCH ×2 (08:35→17:15)
[2022-06-15] MEDS: METOPROLOL TARTRATE 25 MG TABLET PO SCH ×2 (08:35→17:15)
[2022-06-15] MEDS: CLOTRIMAZOLE/BETAMETASONE DIPROPIONATE 15 GM TUBE TP SCH ×2 (08:45→17:53)
[2022-06-15] MEDS: SILVER SULFADIAZINE CREAM 25 GM TUBE TP SCH ×2 (08:45→17:52)
[2022-06-15] MEDS: CLOTRIMAZOLE 1% 15 GM TUBE TP SCH ×2 (08:45→17:53)
--- NOTE | 2022-06-15 17:00 | NUR ---
RN NOTE- MIDLINE CATHERINE INSERTED. TOLERATED WELL
[2022-06-15] MEDS: TAMSULOSIN 0.4 MG CAP.SR.24H PO SCH (17:15)
[2022-06-15 17:20] LABS: CALCIUM, SERUM 8.9 mg/dL (8.5-10.1); CREATININE 2.2 mg/dL (0.6-1.3); POTASSIUM 4.6 mmol/L (3.5-5.1)
[2022-06-15] MEDS: CEFTRIAXONE 2 G in IV D5W 100 ML IV SCH (18:34)
--- NOTE | 2022-06-15 19:00 | NUR ---
RN CLOSING NOTE- PT AWAKE THOUGH SLEEPY AT TIMES, AOX4, INTERACTIVE, CATHERINE MIDLINE PATENT. NS AT 125 / HR. COLOSTOMY W 200 OUTPUT, URINAL W 600 OUTPUT., SIDE RAILS UP, BED LOCKED, NEEDS ATTENDED. CALL LIGHT IN REACH. MONITOR / ASSIST
--- NOTE | 2022-06-15 19:30 | NUR ---
WASH OIL PUMP OPERATOR NOTES AFIB-69 ON TELE MONITOR,ON BED A/O X4,BREATHING EASY,NO SOB,COLOSTOMY BAG IN PLACE LEFT LOWER QUADRANT,WITH SMALL STOOL BROWNISH OUTPUT.CONTINENT ON URINE,URINAL AT BEDSIDE.IVF INFUSING WELL AT 125ML/HR RATE ON RIGHT UPPER ARM MIDLINE VIA IV PUMP,DENIES DISCOMFORTS AT THE MOMENT,SITTER AR BEDSIDE,CALL LIGHT IN REACH,NEEDS ANTICIPATED.
[2022-06-15 20:00] VITALS: BP 105/69
--- NOTE | 2022-06-15 22:42 | NUR ---
COMPOSING ROOM MACHINIST NOTES C/O ABDOMINAL PAIN,MORPHINE MG IV GIVEN FOR STRONG PAIN,VITAL SIGNS STABLE.
--- NOTE | 2022-06-15 23:51 | NUR ---
RISK MANAGEMENT ANALYST NOTES FEELING ANXIOUS,ATIVAN 1MG IV GIVEN ORDERED.
[2022-06-16] VITALS: BP 124/68
[2022-06-16] MEDS: LORAZEPAM INJ 2 MG/ML VIAL IV PRN ×3 (06:29→18:47)
[2022-06-16 06:31] LABS: BASOPHILS % (AUTO) 0.5 % (0.0-2.0); EOSINOPHILS % (AUTO) 3.1 % (0.0-6.0); HEMATOCRIT 38 % (39-51); HEMOGLOBIN 12.4 g/dL (13.5-17.5); LYMPHOCYTES # (AUTO) 0.7 K/uL (0.8-4.8); LYMPHOCYTES % (AUTO) 11.2 % (20.0-44.0); MEAN CORPUSCULAR HGB CONC 33 g/dl (31.0-36.0); MEAN CORPUSCULAR VOLUME 95 fL (80-96); MONOCYTES # (AUTO) 0.6 K/uL (0.1-1.30); MONOCYTES % (AUTO) 9.1 % (2.0-12.0); NEUTROPHILS # (AUTO) 4.9 K/uL (1.8-8.9); NEUTROPHILS % (AUTO) 76.1 % (43.0-81.0); PLATELET COUNT (AUTO) 196 K/uL (150-450); RED BLOOD CELL COUNT(AUTO) 3.97 MIL/uL (4.5-6.0); WHITE BLOOD COUNT (AUTO) 6.5 K/uL (4.3-11.0)
[2022-06-16 06:34] LABS: CREATININE 1.7 mg/dL (0.6-1.3); POTASSIUM 4.6 mmol/L (3.5-5.1)
--- NOTE | 2022-06-16 07:01 | NUR ---
LASER TECHNICIAN NOTES NO SIGNIFICANT CHANGE IN STATUS,DUE MEDS ADMINISTERED,NO DISTRESS.
--- NOTE | 2022-06-16 07:30 | NUR ---
MACHINE DEICER ELEMENT WINDER OPENING NOTES RECEIVED PATIENT ON BED AND A/O X4. ON ROOM AIR TOLERATING WELL. NO SOB NOTED. NOT IN DISTRESS. WITH NO COMPLAINTS OF PAIN OR DISCOMFORT AT THIS TIME. ON TELE MONITOR CURRENTLY READING AFIB AT 69BPM. WITH IV ACCESS AT THE RIGHT UPPER ARM MIDLINE WITH NS AT 125ML/HR INFUSING WELL. WITH COLOSTOMY IN PLACED AT LEFT LOWER QUADRANT. SAFETY MEASURES IN PLACED. CALL LIGHT WITHIN REACH. BED ON LOWEST LOCKED POSITION, SIDE RAILS UP X2. WILL CONTINUE TO MONITOR.
[2022-06-16] MEDS: ALLOPURINOL 100 MG TABLET PO SCH (08:28)
[2022-06-16] MEDS: METOPROLOL TARTRATE 25 MG TABLET PO SCH ×2 (08:28→17:14)
[2022-06-16] MEDS: CLOTRIMAZOLE 1% 15 GM TUBE TP SCH ×2 (08:28→17:15)
[2022-06-16] MEDS: SERTRALINE HCL 50 MG TABLET PO SCH ×2 (08:28→17:14)
[2022-06-16] MEDS: CLOTRIMAZOLE/BETAMETASONE DIPROPIONATE 15 GM TUBE TP SCH ×2 (08:28→17:15)
[2022-06-16] MEDS: SILVER SULFADIAZINE CREAM 25 GM TUBE TP SCH ×2 (08:29→17:15)
[2022-06-16] MEDS: MORPHINE SULFATE INJ 2 MG/ML DISP.SYRIN IV PRN ×3 (08:29→22:27)
[2022-06-16] MEDS: CEFTRIAXONE 2 G in IV D5W 100 ML IV SCH (17:13)
[2022-06-16] MEDS: TAMSULOSIN 0.4 MG CAP.SR.24H PO SCH (17:14)
[2022-06-16] MEDS: IV NS 0.9% 1,000 ML IV PRN (17:19)
--- NOTE | 2022-06-16 18:17 | NUR ---
MS RN CLOSING NOTES PATIENT ON BED AND A/O X4. ON ROOM AIR TOLERATING WELL. NO SOB NOTED. NOT IN DISTRESS. PATIENT IS NEEDY AND USUALLY CALL FOR ATIVAN FOR ANXIETY AND MORPHINE FOR PAIN. WITH IV ACCESS AT THE RIGHT UPPER ARM MIDLINE WITH NS AT 125ML/HR INFUSING WELL. WITH COLOSTOMY IN PLACED AT LEFT LOWER QUADRANT WITH LIQUIDY STOOL. DUE MEDS GIVEN. SAFETY MEASURES IN PLACED. CALL LIGHT WITHIN REACH. BED ON LOWEST LOCKED POSITION, SIDE RAILS UP X2. WILL ENDORSE TO NEXT SHIFT FOR RAJINDER.
--- NOTE | 2022-06-16 19:00 | NUR ---
MS RN NOTES RECEIVED LAYING ON BED,A/O X4,BREATHING EASY,NO SOB,IVF NS AT 125ML/HR RATE IN PROGRESS,SITE PATENT CATHERINE MIDLINE.WITH COLOSTOMY BAG IN PLACE,DRAINS BROWN STOOL,SOFT TO LIQUID IN CONSISTENCY,PATIENT DRAINS IT BY HIMSELF.ABDOMINAL WOUND IMPROVING,PATIENT AMBULATE WITH WALKER,WITH STANDBY ASSIST.WILL CONTINUE TO MONITOR STATUS,CALL LIGHT IN REACH,NEEDS ANTICIPATED.
[2022-06-16 20:00] VITALS: BP 136/71
--- NOTE | 2022-06-16 22:27 | NUR ---
MS RN NOTES C/O ABDOMINAL PAIN,MORPHINE 2MG IV GIVEN ORDERED.
[2022-06-17] MEDS: LORAZEPAM INJ 2 MG/ML VIAL IV PRN (03:15)
--- NOTE | 2022-06-17 03:15 | NUR ---
MS RN NOTES AWAKE,FEELING ANXIOUS,ATIVAN 1MG IV GIVEN ORDERED.WILL MONITOR FOR OVER SEDATION
[2022-06-17 04:00] VITALS: BP 118/58
--- NOTE | 2022-06-17 06:42 | NUR ---
MS RN NOTES ASLEEP,STILL WITH ON AND OFF BODY PAIN,MANAGE WITH MORPHINE.NO EPISODE OF SOB NOTED.IVF INFUSING WELL ON RIGHT UPPER MIDLINE.,ALL DUE MEDS ADMINISTERED,CALL LIGHT IN REACH,NEEDS ATTENDED.
--- NOTE | 2022-06-17 07:00 | NUR ---
MS RN OPENING NOTES PATIENT LAYING IN BED, A/O X 4, ABLE TO MAKE NEEDS KNOWN. TOLERATING WELL ON ROOM AIR WITH NO S/S RESPIRATORY DISTRESS NOTED. CATHERINE MIDLINE WITH NS INFUSING @ 125 ML/HR. COLOSTOMY IN PLACE ON LLQ ABDOMEN DRAINING STOOL. SAFETY MEASURES IN PLACE: BED IN LOWEST LOCKED POSITION, SIDE RAILS UP X 2, CALL LIGHT WITHIN REACH. WILL CONTINUE TO MONITOR.
[2022-06-17 07:03] LABS: CALCIUM, SERUM 9.2 mg/dL (8.5-10.1); CREATININE 1.5 mg/dL (0.6-1.3)
[2022-06-17] MEDS: METOPROLOL TARTRATE 25 MG TABLET PO SCH ×2 (08:20→17:10)
[2022-06-17] MEDS: CLOTRIMAZOLE/BETAMETASONE DIPROPIONATE 15 GM TUBE TP SCH ×2 (08:21→17:11)
[2022-06-17] MEDS: CLOTRIMAZOLE 1% 15 GM TUBE TP SCH ×2 (08:21→17:10)
[2022-06-17] MEDS: SILVER SULFADIAZINE CREAM 25 GM TUBE TP SCH ×2 (08:21→17:11)
[2022-06-17] MEDS: ALLOPURINOL 100 MG TABLET PO SCH (08:21)
[2022-06-17] MEDS: SERTRALINE HCL 50 MG TABLET PO SCH ×2 (08:21→17:10)
[2022-06-17] MEDS: MORPHINE SULFATE INJ 2 MG/ML DISP.SYRIN IV PRN ×3 (08:32→23:42)
[2022-06-17] MEDS: TAMSULOSIN 0.4 MG CAP.SR.24H PO SCH (17:10)
[2022-06-17] MEDS: CEFTRIAXONE 2 G in IV D5W 100 ML IV SCH ×2 (17:11→18:00)
--- NOTE | 2022-06-17 19:00 | NUR ---
MS RN CLOSING NOTES PATIENT LAYING IN BED, A/O X 4, ABLE TO MAKE NEEDS KNOWN. TOLERATING WELL ON ROOM AIR WITH NO S/S RESPIRATORY DISTRESS NOTED. CATHERINE MIDLINE IN PLACE BUT UNABLE TO INFUSE FLUIDS AT THIS TIME, DRIVER SALESMAN MADE AWARE. COLOSTOMY IN PLACE ON LLQ ABDOMEN DRAINING LIQUID STOOL (3600 ML OUTPUT DURING SHIFT). SAFETY MEASURES IN PLACE: BED IN LOWEST LOCKED POSITION, SIDE RAILS UP X 2, CALL LIGHT WITHIN REACH. ALL NEEDS MET. WILL ENDORSE TO DRIVER SALESMAN FOR RAJINDER. Addendum: 06/17/22 at 1953 by LUCINA MA RN CHARGE NURSE ALSO MADE AWARE OF STATUS OF PATIENT MIDLINE
[2022-06-17 20:00] VITALS: BP 107/70
--- NOTE | 2022-06-17 20:37 | NUR ---
RECEIVED PATIENT IN BED, ALERT/ORIENTED X4, ROOM AIR, RECEIVED MORPHINE AND ATIVAN FROM MORNING SHIFT, SEEMED COMFORTABLE, NO DISTRESS. NOTED CATHERINE MIDLINE IS LEAKING, CHANGED DRESSING, STILL LEAKING. NOTIFIED CHARGE NURSE, WILL ATTEMPT TO PUT IN PERIPHERAL OR MIDLINE. ON ROCEPHIN, ON HOLD AT THIS TIME. PER DR. UGALDE, OK TO HOLD NS AT 125 ML/HR, PATIENT HAS CHF.
--- NOTE | 2022-06-17 21:05 | NUR ---
OFFERED TO CHANGE COLOSTOMY, DRAINING BROWNISH LIQUID STOOL, PATIENT REFUSED, PATIENT SAID "I WILL CHANGE IT LATER." ALSO REFUSED TO REMOVE COLOSTOMY BELT, THE BELT IS SOILED WITH STOOL.
[2022-06-18] MEDS: MORPHINE SULFATE INJ 2 MG/ML DISP.SYRIN IV PRN ×2 (06:06→13:12)
--- NOTE | 2022-06-18 07:00 | NUR ---
MS RN OPENING NOTES PATIENT LAYING IN BED, A/O X 4, ABLE TO MAKE NEEDS KNOWN, TOLERATING WELL ON ROOM AIR WITH NO S/S RESPIRATORY DISTRESS. LEFT UPPER QUADRANT COLOSTOMY BAG IN PLACE DRAINING BROWN LIQUID STOOL. DRESSING ON MID ABDOMEN C/D/I. SAFETY MEASURES IN PLACE: BED IN LOWEST LOCKED POSITION, SIDE RAILS UP X 2, CALL LIGHT WITHIN REACH. WILL CONTINUE TO MONITOR.
--- NOTE | 2022-06-18 07:01 | NUR ---
RN NOTES ALERT/ORIENTED X4, NO COMPLAIN OF CHEST PAIN, STABLE ON ROOM AIR, LEFT QUADRANT COLOSTOMY, MID ABDOMEN OPEN WOUND, DRESSING CHANGED. REFUSED APPLIANCE CHANGE OF COLOSTOMY, PATIENT ABLE TO EMPTY COLOSTOMY BAG, LIQUID STOOL. MIDLINE PLACEMENT TODAY. MORPHINE 2 MG IV Q6HRS FOR PAIN, ADEQUATE RELIEF.
[2022-06-18] MEDS: SERTRALINE HCL 50 MG TABLET PO SCH ×2 (08:55→16:37)
[2022-06-18] MEDS: METOPROLOL TARTRATE 25 MG TABLET PO SCH ×2 (08:55→16:38)
[2022-06-18] MEDS: ALLOPURINOL 100 MG TABLET PO SCH (08:55)
[2022-06-18] MEDS: CLOTRIMAZOLE/BETAMETASONE DIPROPIONATE 15 GM TUBE TP SCH ×2 (09:02→16:39)
[2022-06-18] MEDS: SILVER SULFADIAZINE CREAM 25 GM TUBE TP SCH ×2 (09:02→16:39)
[2022-06-18] MEDS: CLOTRIMAZOLE 1% 15 GM TUBE TP SCH ×2 (09:02→16:38)
[2022-06-18 10:32] VITALS: BP 135/75
[2022-06-18] MEDS: CEFTRIAXONE 2 G in IV D5W 100 ML IV SCH (11:00)
--- NOTE | 2022-06-18 13:19 | NUR ---
PATIENT REFUSED LEG SQUEEZERS FOR DVT PROPHYLAXIS
[2022-06-18] MEDS ORDERED: HYDROCODONE/APAP 10/325MG TABLET PO PRN (13:30)
[2022-06-18 15:05] LABS: CALCIUM, SERUM 8.9 mg/dL (8.5-10.1); CREATININE 1.4 mg/dL (0.6-1.3); POTASSIUM 4.5 mmol/L (3.5-5.1)
[2022-06-18] MEDS: TAMSULOSIN 0.4 MG CAP.SR.24H PO SCH (17:11)
--- NOTE | 2022-06-18 19:00 | NUR ---
MS RN CLOSING NOTES PATIENT LAYING IN BED, A/O X 4, ABLE TO MAKE NEEDS KNOWN, TOLERATING WELL ON ROOM AIR WITH NO S/S RESPIRATORY DISTRESS. LEFT UPPER QUADRANT COLOSTOMY BAG IN PLACE DRAINING BROWN LIQUID STOOL. DRESSING ON MID ABDOMEN C/D/I. R HAND # 24 G SL CLEAN, INTACT, AND FLUSHING WELL. SAFETY MEASURES IN PLACE: BED IN LOWEST LOCKED POSITION, SIDE RAILS UP X 2, CALL LIGHT WITHIN REACH. ALL NEEDS MET, TURNED Q2H. BILATERAL SEQUENTIAL COMPRESSION DEVICES IN PLACE AND FUNCTIONAL. WILL ENDORSE TO SENIOR DATA MINING ANALYST FOR RAJINDER.
--- NOTE | 2022-06-18 19:30 | NUR ---
RN OPENING NOTES RECEIVED PT IN BED, ASLEEP, AWAKENS TO VERBAL STIMULI. AOx4. ON RA AND TOLERATING WELL. NO SOB NOTED. NO S/SX OF RESPIRATORY DISTRESS NOTED. IV ACCESS IN CATHERINE MIDLINE #18G. IV IS INTACT, PATENT, AND FLUSHING WELL. SAFETY PRECAUTIONS IN PLACE: BED IN LOWEST, LOCKED POSITION, SIDERAILS UPx2, AND BRAKES ON. TABLE AND CALL LIGHT WITHIN REACH. WILL CONTINUE TO MONITOR.
[2022-06-18 20:00] VITALS: BP 120/70
[2022-06-19] MEDS: MORPHINE SULFATE INJ 2 MG/ML DISP.SYRIN IV PRN ×2 (01:31→11:02)
--- NOTE | 2022-06-19 01:31 | NUR ---
RN NOTES ADMINISTERED MORPHINE FOR PAIN PER MD ORDER. VS WNL.
[2022-06-19] MEDS: LORAZEPAM INJ 2 MG/ML VIAL IV PRN ×2 (02:29→11:13)
--- NOTE | 2022-06-19 02:29 | NUR ---
RN NOTES ADMINISTERED ATIVAN FOR SLEEP PER PT REQUEST. VS WNL.
--- NOTE | 2022-06-19 06:42 | NUR ---
RN CLOSING NOTES PT IN BED, ASLEEP, AWAKENS TO VERBAL STIMULI. AOx4, ABLE TO MAKE NEEDS KNOWN. ON RA AND TOLERATING WELL. NO SOB NOTED. NO S/SX OF RESPIRATORY DISTRESS NOTED. IV ACCESS IN CATHERINE MIDLINE #18G. IV IS INTACT, PATENT, AND FLUSHING WELL. ALL ORDERS CARRIED OUT. ALL NEEDS MET. PT KEPT CLEAN AND DRY. SAFETY PRECAUTIONS IN PLACE: BED IN LOWEST, LOCKED POSITION, SIDERAILS UPx2, AND BRAKES ON. TABLE AND CALL LIGHT WITHIN REACH. WILL ENDORSE TO ONCOMING SHIFT FOR RAJINDER.
--- NOTE | 2022-06-19 07:25 | NUR ---
RN OPENING NOTES RECEIVED PATIENT IN BED, AWAKE, A/O X4, VERBALLY RESPONSIVE. NO SIGNS OF ACUTE DISTRESS NOTED. ON ROOM AIR, NO SOB NOTED, BREATHING EVEN AND UNLABORED. NOTED WITH RIGHT UPPER ARM MIDLINE #18G, INTACT AND PATENT, SALINE LOCKED. DENIES ANY PAIN AT THIS TIME. NOTED WITH COLOSTOMY BAG, INTACT. SAFETY MEASURE IN PLACE. BED IN LOWEST AND LOCKED POSITION, SIDE RAILS UP X2, CALL LIGHT PLACED WITHIN EASY REACH. WILL, CONTINUE TO MONITOR PATIENT.
[2022-06-19 07:52] LABS: CALCIUM, SERUM 9.6 mg/dL (8.5-10.1); CREATININE 1.2 mg/dL (0.6-1.3); POTASSIUM 4.8 mmol/L (3.5-5.1)
[2022-06-19] MEDS: SERTRALINE HCL 50 MG TABLET PO SCH (08:30)
[2022-06-19] MEDS: ALLOPURINOL 100 MG TABLET PO SCH (08:30)
[2022-06-19] MEDS: METOPROLOL TARTRATE 25 MG TABLET PO SCH (08:34)
[2022-06-19] MEDS: SILVER SULFADIAZINE CREAM 25 GM TUBE TP SCH (08:34)
[2022-06-19] MEDS: CLOTRIMAZOLE/BETAMETASONE DIPROPIONATE 15 GM TUBE TP SCH (08:34)
[2022-06-19] MEDS ORDERED: IOHEXOL-350 100 ML VIAL IV ONE (10:05)
[2022-06-19] MEDS ORDERED: methylPREDNISolone SOD SUCC 125 MG/2ML VIAL ONE (10:05)
[2022-06-19] MEDS ORDERED: NITROGLYCERIN 0.4 MG/TAB BOTTLE ONE (10:06)
[2022-06-19] MEDS ORDERED: CT SWABBABLE VALVE TRANS SET 1 EA INFUS.SET MC ONE (10:06)
[2022-06-19] MEDS ORDERED: IV NS 0.9% 250 ML IV ONE (10:06)
[2022-06-19] MEDS ORDERED: METOPROLOL TARTRATE INJ 5 MG/5 ML AMPUL ONE (10:33)
[2022-06-19 10:42] VITALS: BP 100/71
[2022-06-19] MEDS: CLOTRIMAZOLE 1% 15 GM TUBE TP SCH (10:54)
[2022-06-19] MEDS ORDERED: METOPROLOL TARTRATE INJ 5 MG/5 ML AMPUL IVP PRN (11:00)
[2022-06-19] MEDS ORDERED: NITROGLYCERIN 0.4 MG/TAB BOTTLE SL PRN (11:00)
[2022-06-19] MEDS: CEFTRIAXONE 2 G in IV D5W 100 ML IV SCH (11:03)
[2022-06-19] MEDS ORDERED: CLOT15CR35 TP (13:24)
[2022-06-19] MEDS ORDERED: SILV50CR32 TP (13:24)
[2022-06-19] MEDS ORDERED: CLOT15CR5 TP (13:24)
--- NOTE | 2022-06-19 16:25 | NUR ---
RIVET TESTER NOTE PATIENT DISCHARGED TO HOME IN STABLE CONDITION. PATIENT A/OX 4, ABLE TO MAKE NEEDS KNOWN. NO SIGNS OF ACUTE DISTRESS NOTED. ALL BELONGINGS ACCOUNTED FOR, FORM SIGNED BY PATIENT. IV ACCESS REMOVED, NO BLEEDING NOTED, PRESSURE DRESSING APPLIED TO SITE. EXITCARE FOLDER GIVEN TO PATIENT , DISCHARGE INSTRUCTIONS PROVIDED WITH VERBALIZATION OF UNDERSTANDING. PATIENT LEFT UNIT @1610, ACCOMPANIED BY [facility] VIA W/C TO THE LOBBY. PATIENT WILL BE TRANSPORTED VIA CAB TO HOME. CN AWARE OF DISCHARGE.
== END 2022-06-19 16:15 | disposition home or self-care (01) | DRG 682 ==
LOC: ER 10:25 → TRANSITION 14:10 → TELE 14:40 → MED 06-16 18:54
PROVIDERS: ADMIT Nurse Practitioner Acute Care; ATTEND Nurse Practitioner Acute Care
PROC: 05H933Z Insertion of Infusion Device into Right Brachial Vein, Percutaneous Approach (ICD-10-PCS; principal; 2022-06-15)
PROC: 05HD33Z Insertion of Infusion Device into Right Cephalic Vein, Percutaneous Approach (ICD-10-PCS; 2022-06-18)
DX: N17.0 Acute kidney failure with tubular necrosis (principal); J15.9 Unspecified bacterial pneumonia; I13.0 Hypertensive heart and chronic kidney disease with heart failure and stage 1 through stage 4 chronic kidney disease, or unspecified chronic kidney disease; E87.2 Acidosis; Z68.42 Body mass index [BMI] 45.0-49.9, adult; E87.1 Hypo-osmolality and hyponatremia; I48.91 Unspecified atrial fibrillation; Z20.822 Contact with and (suspected) exposure to COVID-19; E11.22 Type 2 diabetes mellitus with diabetic chronic kidney disease; E11.40 Type 2 diabetes mellitus with diabetic neuropathy, unspecified; I50.9 Heart failure, unspecified; N18.9 Chronic kidney disease, unspecified; Z93.3 Colostomy status; Z90.49 Acquired absence of other specified parts of digestive tract; Z79.51 Long term (current) use of inhaled steroids; Z79.01 Long term (current) use of anticoagulants; Z79.899 Other long term (current) drug therapy; E87.6 Hypokalemia; N40.0 Benign prostatic hyperplasia without lower urinary tract symptoms; E66.01 Morbid (severe) obesity due to excess calories; E86.0 Dehydration; E83.39 Other disorders of phosphorus metabolism; E88.09 Other disorders of plasma-protein metabolism, not elsewhere classified; K43.9 Ventral hernia without obstruction or gangrene; Z87.2 Personal history of diseases of the skin and subcutaneous tissue
CPT/HCPCS: 36415; 71045-TC; 75574; 80048-TC; 80076-TC; 81001; 83605-TC; 83735-TC; 83880; 84100-TC; 84484-TC; 85025-TC; 85730-TC; 87040-TC; 87081-TC; 87086-TC; 97116-TC; 97530-TC; A4217; A6253; A6403; G0378; J0696; J2060; J2270; J2930; J3490; J7030; J7050; J7060; Q9967

== ENCOUNTER 2022-08-08 21:03 | Inpatient (IN) | payer MEDICARE, OTHER ==
[~2022-08-08] VITALS: Ht 172.7 cm; Wt 157.9 kg
[~2022-08-08 21:03] MED LIST changes: -ACET-868 PO; -AMOX-430 PO; -CLOT15CR27 TP; +CLOT15CR35 TP; +CLOT15CR5 TP; -DOXY100C2 PO; -PRAV20TA4 PO; -PREG-58 PO; +SILV50CR32 TP; -TRAM50TA2 PO; -TRAZ-252 PO; -ZOLP5TAB8 PO
--- NOTE | 2022-08-08 21:30 | NUR ---
VANDANA FROM HOME 89 C/O SOB X1 DAY. HX CHF & COPD. SATTING 94% ON R/A. PT AWAKE AND ALERT X4 BREATHING UNLABORED. ENDORSES BEING ON LASIX AND TAKING HIS MEDS PRESCRIBED. NOTED BLE EDEMA. PLACED ON MONITOR AND V/S WNL.
--- NOTE | 2022-08-08 21:32 | NUR ---
CURRICULUM DEVELOPMENT COORDINATOR AT PT'S BEDSIDE
--- NOTE | 2022-08-08 21:48 | NUR ---
20G LAC BLOOD DRAWN AND SENT TO LAB
[2022-08-08 22:13] LABS: BASOPHILS % (AUTO) 0.3 % (0.0-2.0); EOSINOPHILS % (AUTO) 3.6 % (0.0-6.0); HEMATOCRIT 35 % (39-51); HEMOGLOBIN 11.2 g/dL (13.5-17.5); LYMPHOCYTES # (AUTO) 0.8 K/uL (0.8-4.8); LYMPHOCYTES % (AUTO) 11.5 % (20.0-44.0); MEAN CORPUSCULAR HGB CONC 32 g/dl (31.0-36.0); MEAN CORPUSCULAR VOLUME 98 fL (80-96); MONOCYTES # (AUTO) 0.9 K/uL (0.1-1.30); MONOCYTES % (AUTO) 12.1 % (2.0-12.0); NEUTROPHILS # (AUTO) 5.1 K/uL (1.8-8.9); NEUTROPHILS % (AUTO) 72.5 % (43.0-81.0); PLATELET COUNT (AUTO) 206 K/uL (150-450); RED BLOOD CELL COUNT(AUTO) 3.54 MIL/uL (4.5-6.0); WHITE BLOOD COUNT (AUTO) 7.1 K/uL (4.3-11.0)
--- NOTE | 2022-08-08 22:30 | NUR ---
URINE COLLECTED AND SENT TO LAB
[2022-08-08 22:38] LABS: CALCIUM, SERUM 8.7 mg/dL (8.5-10.1); CARBON DIOXIDE 32 mmol/L (21-32); CHLORIDE 106 mmol/L (98-107); CREATININE 2.2 mg/dL (0.6-1.3); GLUCOSE 99 mg/dL (74-106); SODIUM SERUM 140 mmol/L (136-145); UREA NITROGEN, BLOOD 44 mg/dL (7-18)
[2022-08-08 22:50] LABS: POTASSIUM 6.4 mmol/L (3.5-5.1)
[2022-08-08 22:53] LABS: ALANINE AMINOTRANSFERASE 24 U/L (12-78); ALBUMIN 2.9 g/dL (3.4-5.0); ALKALINE PHOSPHATASE 48 U/L (46-116); ASPARTATE AMINOTRANSFERASE 17 U/L (15-37); BILIRUBIN,DIRECT 0.1 mg/dL (0.0-0.2); BILIRUBIN,TOTAL 0.3 mg/dL (0.2-1.0); TOTAL PROTEIN, SERUM 7.5 g/dL (6.4-8.2)
[2022-08-08] MEDS ORDERED: SODIUM BICARBONATE SYR 50 MEQ/50 ML DISP.SYRIN IV ONE (23:00)
[2022-08-08] MEDS ORDERED: DEXTROSE 50%-WATER 50 ML DISP.SYRIN IV ONE (23:00)
[2022-08-08] MEDS ORDERED: SODIUM POLYSTYRENE SULFONATE 15 G/60 ML BOTTLE PO ONE (23:00)
[2022-08-08] MEDS ORDERED: FUROSEMIDE 40 MG/4 ML VIAL IV ONE (23:00)
[2022-08-08] MEDS ORDERED: ALBUTEROL FS 2.5 MG/3 ML VIAL.NEB NEB ONE (23:00)
[2022-08-08] MEDS ORDERED: INSULIN REGULAR, HUMAN 100 UNIT/ML 10 ML VIAL IV ONE (23:00)
[2022-08-08] MEDS ORDERED: CALCIUM CHLORIDE 1,000 MG/10 ML DISP.SYRIN IV ONE (23:00)
[2022-08-08] MEDS ORDERED: DEXTROSE 50%-WATER 50 ML DISP.SYRIN ONE (23:22)
[2022-08-08] MEDS ORDERED: SODIUM POLYSTYRENE SULFONATE 15 G/60 ML BOTTLE ONE (23:22)
[2022-08-08] MEDS ORDERED: FUROSEMIDE 20 MG/2 ML VIAL ONE (23:22)
[2022-08-08] MEDS ORDERED: CALCIUM CHLORIDE 1,000 MG/10 ML DISP.SYRIN ONE (23:22)
[2022-08-08] MEDS ORDERED: SODIUM BICARBONATE SYR 50 MEQ/50 ML DISP.SYRIN ONE (23:22)
[2022-08-08] MEDS ORDERED: INSULIN REGULAR, HUMAN 100 UNIT/ML 10 ML VIAL ONE (23:23)
[2022-08-08 23:30] LABS: BILIRUBIN,URINE NEGATIVE (NEGATIVE); COLOR,URINE YELLOW (YELLOW); LEUKOCYTE ESTERASE ,URINE TRACE (NEGATIVE); NITRITE, URINE NEGATIVE (NEGATIVE); PROTEIN,URINE NEGATIVE (NEGATIVE); UGLUCOSE NEGATIVE (NEGATIVE); UROBILINOGEN,URINE 0.2 EU/dL (0.2)
[2022-08-08 23:41] LABS: BACTERIA,URINE Rare /HPF (None Seen); RBC,URINE 0-2 /HPF (0-2); SQUAMOUS EPITHELIAL CELL,UR Many /HPF (None Seen)
[2022-08-09] MEDS ORDERED: MORPHINE SULFATE INJ 2 MG/ML DISP.SYRIN ONE (00:13)
[2022-08-09] MEDS ORDERED: ONDANSETRON HCL/PF 4 MG/2 ML VIAL ONE (00:13)
[2022-08-09] MEDS ORDERED: ALBUTEROL FS 2.5 MG/3 ML VIAL.NEB ONE (00:18)
[2022-08-09] MEDS ORDERED: MORPHINE SULFATE INJ 2 MG/ML DISP.SYRIN IV ONE (00:30)
[2022-08-09] MEDS ORDERED: ONDANSETRON HCL/PF 4 MG/2 ML VIAL IV ONE (00:30)
--- NOTE | 2022-08-09 01:19 | NUR ---
REPORT GIVEN TO JERONIMO
[2022-08-09] MEDS ORDERED: CEFTRIAXONE 1 G VIAL ONE (01:46)
[2022-08-09] MEDS ORDERED: CEFTRIAXONE 1 G in IV D5W 50 ML IV SCH (02:00)
[2022-08-09] MEDS ORDERED: ALBUTEROL FS 2.5 MG/3 ML VIAL.NEB NEB PRN (02:00)
[2022-08-09] MEDS ORDERED: DEXTROSE 50%-WATER 50 ML DISP.SYRIN IV PRN (02:00)
[2022-08-09] MEDS ORDERED: ONDANSETRON HCL/PF 4 MG/2 ML VIAL IVP PRN (02:00)
[2022-08-09] MEDS ORDERED: Z GUARD REMEDY 4 OZ OINT TP PRN (02:00)
[2022-08-09] MEDS ORDERED: MAGNESIUM HYDROXIDE 30 ML UDC PO PRN (02:00)
[2022-08-09] MEDS ORDERED: ACETAMINOPHEN 325 MG TABLET PO PRN (02:00)
[2022-08-09] MEDS ORDERED: MAG HYDROX/AL HYDROX/SIMETH 30 ML UDC PO PRN (02:00)
[2022-08-09 02:30] VITALS: BP 135/62
--- NOTE | 2022-08-09 02:30 | NUR ---
CONSULTATIVE SALES ASSOCIATE NOTES, RECEIVED 65 YEARS OLD MALE ADMITTED FROM ER DEPARTMENT VIA STRETCHER, UNDER MEDICAL SERVICES MICHEL MARK, WITH ADMITTING DX HYPERKALEMIA, CHF, PATIENT A/X X4 ABLE TO VERBALIZE NEEDS AND CONCERNS, NO SOB AT THIS TIME, ON ROOM AIR TOLERATED WEEK, BUT SOB WITH EXERTION, ATTACHED TO TELE BOX AND SHOWS AFIB/AFLUTTER CONTROLLED WITH HR 70S-80SPATIENT REFUSING VITAL SINGS AT THIS TIME, UNTIL WE PROVIDE A SANDWICH, ALSO ATTEMPT TO TAKE PICTURES OF SKIN ISSUES ANS HE REFUSED, HE STATED "ENOUGH!! I DON'T WANT PICTURES!!! " EXPLAIN RISKS AND BENEFITS AND THE IMPORTANCE TO TAKE PICTURES SO WE CAN PROVIDE THE RIGHT TREATMENT, AND HE REFUSED IV SITE IN LEFT AC 20G PATENT AND INTACT, PATIENT NOTED WITH BILATERAL LE PITTING EDEMA 4+, PATIENT REFUSED TO BE CLEANED,COLOSTOMY IN PLACED NOTED WITH LIQUID GREEN COLOR STOOL, ABDOMEN NOTED WITH HEALED MID INCISION, AND REDNESS ALL OVER SPECIALLY WHEN COLOSTOMY BAG IS PLACED, REDNESS IN ABDOMINAL FOLDS, PERINEAL AREA, INTERGLUTEAL AND SACRAL REDNESS WELL, PATIENT REFUSED PICTURES, EXPLAINED RISKS AND BENEFITS, STILL REFUSED, BED LOCKED AND IN LOWEST POSITION, CALL LIGHT W/I REACH, S/R OF BED X2 UP, WILL CONTINUE TO MONITOR CLOSELY,
--- NOTE | 2022-08-09 02:32 | NUR ---
PT TRANSPORTED TO ROOM 118-1 ON CARDIAC PER ACLS
--- NOTE | 2022-08-09 03:00 | NUR ---
VS TAKEN AT THIS TIME, 97.5, 89, 20, 92% AT ROOM AIR, 135/62, SANDWICH AND JUICE PROVIDED TO PATIENT.
[2022-08-09] MEDS: IV NS 0.9% 1,000 ML IV PRN (03:30)
[2022-08-09] MEDS: MORPHINE SULFATE INJ 2 MG/ML DISP.SYRIN IV PRN ×4 (04:20→23:56)
--- NOTE | 2022-08-09 06:21 | NUR ---
END OF SHIFT, PATIENT SLEEPING AT THIS TIME, ON ROOM AIR, NO SOB/ACUTE DISTRESS DURING THE REST OF THE SHIFT, CONT AFIB CONTROLLED ON TELE MONITOR, LEFT AC IV LINE, 0.9% INFUSING AT 50ML/HR, PATIENT TOLERATED WELL, NO S/SOF INFILTRATION NOTED, BED LOCKED AND IN LOWEST POSITION, CALL LIGHT W/I REACH, S/R OF BED X2 UP, WILL ENDORSE CONTINUITY OF CARE TO ONCOMING NURSE.
[2022-08-09 06:35] LABS: BASOPHILS % (AUTO) 0.7 % (0.0-2.0); EOSINOPHILS % (AUTO) 5.1 % (0.0-6.0); HEMATOCRIT 34 % (39-51); HEMOGLOBIN 10.8 g/dL (13.5-17.5); LYMPHOCYTES # (AUTO) 0.7 K/uL (0.8-4.8); LYMPHOCYTES % (AUTO) 11.7 % (20.0-44.0); MEAN CORPUSCULAR HGB CONC 32 g/dl (31.0-36.0); MEAN CORPUSCULAR VOLUME 98 fL (80-96); MONOCYTES # (AUTO) 0.6 K/uL (0.1-1.30); MONOCYTES % (AUTO) 10.4 % (2.0-12.0); NEUTROPHILS # (AUTO) 4.2 K/uL (1.8-8.9); NEUTROPHILS % (AUTO) 72.1 % (43.0-81.0); PLATELET COUNT (AUTO) 180 K/uL (150-450); RED BLOOD CELL COUNT(AUTO) 3.42 MIL/uL (4.5-6.0); WHITE BLOOD COUNT (AUTO) 5.8 K/uL (4.3-11.0)
[2022-08-09 07:20] LABS: THYROID STIMULATING HORMONE 0.888 uIU/mL (0.358-3.74)
[2022-08-09 07:30] LABS: CALCIUM, SERUM 8.9 mg/dL (8.5-10.1); MAGNESIUM 1.5 mg/dL (1.8-2.4); PHOSPHORUS 4.5 mg/dL (2.5-4.9); POTASSIUM 3.8 mmol/L (3.5-5.1)
[2022-08-09] MEDS: BLOOD SUGAR DIAGNOSTIC 1 EACH STRIP IN SCH ×4 (07:30→22:52)
--- NOTE | 2022-08-09 07:35 | NUR ---
BILLING AND QUALITY TECHNICIAN OEPNING NOTES RECEIVED PATIENT AWAKE AND VERBALLY RESPONSIVE, A/O X 4 , ON ROOM AIR, NO SOB/ACUTE DISTRESS NOTED AT THIS TIME , CONT AFIB CONTROLLED ON TELE MONITOR, LEFT AC IV LINE, 0.9% INFUSING AT 50ML/HR, PATIENT TOLERATED WELL, NO S/SOF INFILTRATION NOTED, BED LOCKED AND IN LOWEST POSITION, CALL LIGHT W/I REACH, S/R OF BED X2 UP, WILL CONTINUE TO MONITOR .
[2022-08-09] MEDS: HYDROCODONE/APAP 5/325MG TABLET PO PRN ×3 (09:43→22:57)
--- NOTE | 2022-08-09 09:46 | NUR ---
RN NOTES PATIENT C/O OF PAIN 05/14 AND NORCO WAS GIVEN AND REFUSED AND HE SAID PAIN IS NOW 07/15
[2022-08-09] MEDS: PANTOPRAZOLE 40 MG VIAL IV SCH (09:52)
[2022-08-09] MEDS: SERTRALINE HCL 50 MG TABLET PO SCH ×2 (09:52→17:13)
[2022-08-09] MEDS: METOPROLOL TARTRATE 25 MG TABLET PO SCH ×2 (09:53→17:14)
[2022-08-09] MEDS: APIXABAN 5 MG TABLET PO SCH ×2 (09:55→17:18)
[2022-08-09] MEDS: CLOTRIMAZOLE 1% 15 GM TUBE TP SCH ×3 (10:50→17:46)
[2022-08-09] MEDS ORDERED: BUMETANIDE INJ 8 MG in IV NS 0.9% 48 ML IV ONE (14:00)
[2022-08-09] MEDS: TAMSULOSIN 0.4 MG CAP.SR.24H PO SCH (17:14)
[2022-08-09] MEDS: INSULIN REGULAR, HUMAN 100 UNIT/ML 3 ML VIAL SQ PRN ×2 (18:37→23:06)
--- NOTE | 2022-08-09 19:12 | NUR ---
INSIDE SALES DIRECTOR CLOSING NOTES PATIENT AWAKE AND VERBALLY RESPONSIVE, A/O X 4 , ON ROOM AIR, NO SOB/ACUTE DISTRESS NOTED AT THIS TIME , CONT A- FLUTTER CONTROLLED ON TELE MONITOR WITH HR 0F 72 , ALL DUE MEDS GIVEN , COLOSTOMY BAG WAS CHANGES , RIGHT AC IV #22 G LINE, 0.9% INFUSING WITH BUMEX IV OF 10CC/HOUR, PATIENT TOLERATED WELL, NO S/SOF INFILTRATION NOTED, BED LOCKED AND IN LOWEST POSITION, CALL LIGHT W/I REACH, S/R OF BED X2 UP, WILL ENDORSED TO NEXT SHIFT .
--- NOTE | 2022-08-09 19:30 | NUR ---
PATIENT AWAKE SITTING IN BED, A/O X4 , ABLE TO MAKE NEEDS KNOWN. ON ROOM AIR, NO SOB, NOT IN ACUTE DISTRESS, IVACCESS ON RIGHT AC G#22 INFUSING WITH BUMEX AT 10CC/HOUR, NO S/SOF INFILTRATION NOTED, NOT IN DISTRESS, NO COMPLAINTS OF PAIN. URINAL AT BEDSIDE. COLOSTOMY BAG C/D/I. ALL SAFETY PRECAUTION INPLACE, HEAD OF BED ELEVATED, BED IN LOWEST POSITION, LOCKED. SIDE RAILS UP X2, BED ALARM ON, CALL LIGHT WITH IN REACH. WILL CONTINUE PLAN OF CARE.
[2022-08-09 20:00] VITALS: BP 104/69
[2022-08-09] MEDS: CEFTRIAXONE 2 G in IV D5W 100 ML IV SCH (21:07)
[2022-08-09] MEDS: Magnesium 1GM/D5W 100ML PREMIX 100 ML IV SCH ×2 (22:56→23:56)
[2022-08-09] MEDS: ZOLPIDEM TARTRATE 5 MG TABLET PO PRN (22:57)
[2022-08-10] VITALS: BP 108/79
[2022-08-10] MEDS: IV NS 0.9% 1,000 ML IV PRN (02:18)
[2022-08-10 04:00] VITALS: BP 121/65
--- NOTE | 2022-08-10 07:28 | NUR ---
PATIENT ASLEEP IN BED, A/O X4 , ABLE TO MAKE NEEDS KNOWN. ON ROOM AIR, NO SOB, NOT IN ACUTE DISTRESS, IV ACCESS ON RIGHT AC G#22 INFUSING 09 NS AT 50ML PER HR, NO S/S OF INFILTRATION NOTED, NOT IN DISTRESS, NO COMPLAINTS OF PAIN. URINAL AT BEDSIDE. COLOSTOMY BAG C/D/I. ALL SAFETY PRECAUTIONS MAINTAINED, HEAD OF BED SLIGHTLY ELEVATED, BED IN LOWEST POSITION, LOCKED. SIDE RAILS UP X2, BED ALARM ON, CALL LIGHT WITH IN REACH. WILL ENDORSE TO NEXT NURSE ON DUTY FOR CONTINUITY OF CARE.
--- NOTE | 2022-08-10 07:35 | NUR ---
RN OPENING NOTE PATIENT AWAKE SITTING IN BED, A/O X4 , ABLE TO MAKE NEEDS KNOWN. ON ROOM AIR, NO SOB, NOT IN ACUTE DISTRESS, IVACCESS ON RIGHT AC G#22 INFUSING WITH BUMEX AT 10CC/HOUR, NO S/SOF INFILTRATION NOTED, NOT IN DISTRESS, NO COMPLAINTS OF PAIN. URINAL AT BEDSIDE. COLOSTOMY BAG C/D/I. ALL SAFETY PRECAUTION INPLACE, HEAD OF BED ELEVATED, BED IN LOWEST POSITION, LOCKED. SIDE RAILS UP X2, BED ALARM ON, CALL LIGHT WITH IN REACH.
[2022-08-10 08:00] VITALS: BP 102/45
[2022-08-10] MEDS: SERTRALINE HCL 50 MG TABLET PO SCH ×2 (08:35→17:05)
[2022-08-10] MEDS: PANTOPRAZOLE 40 MG VIAL IV SCH (08:35)
[2022-08-10] MEDS: METOPROLOL TARTRATE 25 MG TABLET PO SCH ×2 (08:36→17:05)
[2022-08-10] MEDS: CLOTRIMAZOLE 1% 15 GM TUBE TP SCH ×2 (08:36→17:10)
[2022-08-10] MEDS: MORPHINE SULFATE INJ 2 MG/ML DISP.SYRIN IV PRN ×3 (08:36→21:25)
[2022-08-10] MEDS: BLOOD SUGAR DIAGNOSTIC 1 EACH STRIP IN SCH ×4 (08:37→23:22)
[2022-08-10] MEDS: APIXABAN 5 MG TABLET PO SCH ×2 (08:38→17:06)
--- NOTE | 2022-08-10 10:00 | NUR ---
RN NOTE CALLED LAB SPOKE WITH ALONDRA. PATIENT IS REFUSING BLOOD WORK. EXPLAINED TO PATIENT THE IMPORTANCE OF GETTING BLOOD WORK DONE. PATIENT STILL REFUSED. WILL INFORM PROVIDER Addendum: 08/10/22 at 1337 by EPHRAIM KAYE RN LAB WAS ABLE TO GET BLOOD WORK
[2022-08-10] MEDS: INSULIN REGULAR, HUMAN 100 UNIT/ML 3 ML VIAL SQ PRN ×2 (11:19→16:38)
--- NOTE | 2022-08-10 12:00 | NUR ---
RN NOTE PATIENT REFUSED 1200 VITALS EXPLAINED IMPORTANCE. PER PATIENT HE WANTS US TO TAKE THEM LATER TODAY.
[2022-08-10 13:49] LABS: BASOPHILS % (AUTO) 0.2 % (0.0-2.0); HEMATOCRIT 36 % (39-51); HEMOGLOBIN 11.4 g/dL (13.5-17.5); LYMPHOCYTES # (AUTO) 0.6 K/uL (0.8-4.8); LYMPHOCYTES % (AUTO) 9.3 % (20.0-44.0); MEAN CORPUSCULAR HGB CONC 32 g/dl (31.0-36.0); MEAN CORPUSCULAR VOLUME 97 fL (80-96); MONOCYTES # (AUTO) 0.6 K/uL (0.1-1.30); MONOCYTES % (AUTO) 8.7 % (2.0-12.0); NEUTROPHILS # (AUTO) 5.3 K/uL (1.8-8.9); NEUTROPHILS % (AUTO) 77.8 % (43.0-81.0); PLATELET COUNT (AUTO) 215 K/uL (150-450); RED BLOOD CELL COUNT(AUTO) 3.66 MIL/uL (4.5-6.0); WHITE BLOOD COUNT (AUTO) 6.9 K/uL (4.3-11.0)
[2022-08-10 14:01] LABS: CALCIUM, SERUM 8.7 mg/dL (8.5-10.1); CREATININE 1.7 mg/dL (0.6-1.3); MAGNESIUM 1.7 mg/dL (1.8-2.4); PHOSPHORUS 3.4 mg/dL (2.5-4.9); POTASSIUM 3.6 mmol/L (3.5-5.1)
[2022-08-10 16:00] VITALS: BP 107/72
[2022-08-10] MEDS: TAMSULOSIN 0.4 MG CAP.SR.24H PO SCH (17:05)
--- NOTE | 2022-08-10 18:36 | NUR ---
RN CLOSING NOTES PATIENT AWAKE AND VERBALLY RESPONSIVE, A/O X 4, ON ROOM AIR, NO SOB/ACUTE DISTRESS NOTED AT THIS TIME , CONT A- FLUTTER CONTROLLED ON TELE MONITOR , ALL DUE MEDS GIVEN , COLOSTOMY BAG PRESENT ,RIGHT AC IV #22 G SL NO S/SOF INFILTRATION NOTED, BED LOCKED AND IN LOWEST POSITION, CALL LIGHT W/I REACH, S/R OF BED X2 UP, WILL ENDORSED TO NEXT SHIFT .
--- NOTE | 2022-08-10 19:38 | NUR ---
MS YBARRA OPENING NOTES RECEIVED PATIENT AWAKE ON BED, A/O X4 , ABLE TO MAKE NEEDS KNOWN. ON ROOM AIR, NO SOB, NOT IN ACUTE DISTRESS, IV ACCESS ON RIGHT AC G#22 INTACT AND PATENT NO FLUIDS RUNNING AT THIS TIME, NO S/SX OF INFILTRATION NOTED, NOT IN DISTRESS, NO COMPLAINTS OF PAIN. URINAL AT BEDSIDE. COLOSTOMY BAG C/D/I. ALL SAFETY PRECAUTION IN PLACED, HEAD OF BED ELEVATED, BED IN LOWEST AND LOCKED POSITION. SIDE RAILS UP X2, BED ALARM ON, CALL LIGHT WITH IN REACH. WILL CONTINUE TO MONITOR THROUGHOUT THE SHIFT. Addendum: 08/10/22 at 1941 by JONNATHAN PACKER RN EMERGENCY VEHICLE DRIVER NOTES
[2022-08-10 20:00] VITALS: BP 106/65
--- NOTE | 2022-08-10 21:20 | NUR ---
RN NOTE PT IV ACCESS ON CATHERINE #22G GOT INFILTRATED, ICE PACKS PROVIDED, NEW IV LINE STARTED AT LAC #24G, INTACT, PATENT AND FLUSHING WELL. PT TOLERATED WELL.
[2022-08-10] MEDS: CEFTRIAXONE 2 G in IV D5W 100 ML IV SCH (21:25)
--- NOTE | 2022-08-10 22:25 | NUR ---
RN NOTE IV ACCESS GOT OCCLUDED, PT IS HARDSTICK, ATTEMPTED TO START NEW IV ACCESS ON L FOOT #24G. CHECKED BS FROM IV CANNULA WITH BLOOD RETURN RESULTED 41 MG/DL. RECHECKED AGAIN DIRECTLY FROM THE FINGERSTICK, NOW RESULTED 117 MG/DL, NO COVERAGE GIVEN PER SLIDING SCALE. SNACKS PROVIDED TO PATIENT. WILL CONT TO MONITOR.
[2022-08-11] VITALS: BP 103/64
[2022-08-11] MEDS: ZOLPIDEM TARTRATE 5 MG TABLET PO PRN (00:01)
[2022-08-11 04:00] VITALS: BP 113/54
[2022-08-11] MEDS: MORPHINE SULFATE INJ 2 MG/ML DISP.SYRIN IV PRN ×2 (04:26→09:12)
--- NOTE | 2022-08-11 06:48 | NUR ---
ENGINE HOUSE HELPER CLOSING NOTES PATIENT SLEEPING ON BED BUT EASILY AROUSABLE TO TOUCH AND VOICE, A/O X4 , ABLE TO MAKE NEEDS KNOWN. ON ROOM AIR, NO SOB, NOT IN ACUTE DISTRESS, IV ACCESS ON LAC #24G AND L DORSAL FOOT #24G INTACT AND PATENT NO FLUIDS RUNNING AT THIS TIME, AWAITING FOR MIDLINE INSERTION, NOT IN DISTRESS, NO COMPLAINTS OF PAIN AT THIS TIME, URINAL AT BEDSIDE. COLOSTOMY BAG C/D/I. ALL DUE MEDS GIVEN, KEPT DRY AND CLEAN, ALL SAFETY PRECAUTION IN PLACED, HEAD OF BED ELEVATED, BED IN LOWEST AND LOCKED POSITION. SIDE RAILS UP X2, BED ALARM ON, CALL LIGHT WITH IN REACH. WILL ENDORSE TO AM SHIFT NURSE FOR CONTINUITY OF CARE.
[2022-08-11 07:03] LABS: BASOPHILS % (AUTO) 0.3 % (0.0-2.0); EOSINOPHILS % (AUTO) 4.4 % (0.0-6.0); HEMATOCRIT 35 % (39-51); HEMOGLOBIN 11.2 g/dL (13.5-17.5); LYMPHOCYTES # (AUTO) 0.8 K/uL (0.8-4.8); LYMPHOCYTES % (AUTO) 11.9 % (20.0-44.0); MEAN CORPUSCULAR HGB CONC 32 g/dl (31.0-36.0); MEAN CORPUSCULAR VOLUME 98 fL (80-96); MONOCYTES # (AUTO) 0.7 K/uL (0.1-1.30); NEUTROPHILS # (AUTO) 4.8 K/uL (1.8-8.9); NEUTROPHILS % (AUTO) 73.4 % (43.0-81.0); PLATELET COUNT (AUTO) 207 K/uL (150-450); RED BLOOD CELL COUNT(AUTO) 3.57 MIL/uL (4.5-6.0); WHITE BLOOD COUNT (AUTO) 6.5 K/uL (4.3-11.0)
--- NOTE | 2022-08-11 07:18 | NUR ---
WOUND CARE CONSULT: PT PRESENTS WITH FRAGILE AREA OF SCARRING TO ABDOMEN WITH SMALL OPENING, COLOSTOMY, MULTIPLE AREAS OF SKIN DISCOLORATION AND EXCORIATIONS WELL RASHES TO ABDOMINAL/GROIN FOLDS, PRESENT ON ADMISSION. RECOMMENDATIONS MADE FOR SKIN PROTECTION AND WOUND CARE. DISCUSSED WITH NURSING STAFF. DR JULIA ARMANDO TO FOLLOW FOR ABDOMINAL HEALING WOUND. PT IS ON ADE ISOFLEX LOW AIRLOSS BED. MD IN AGREEMENT WITH PLAN OF CARE.
--- NOTE | 2022-08-11 07:27 | NUR ---
CHIEF MINISTER OPENING NOTES RECEIVED PATIENT AWAKE ON BED, A/O X4 , ABLE TO MAKE NEEDS KNOWN. ON ROOM AIR, NO SOB, BREATHING NON LABOR, IV ACCESS ON RIGHT ANKLE G#24 INTACT AND PATENT NO FLUIDS RUNNING AT THIS TIME, NO S/SX OF INFILTRATION NOTED, NOT IN DISTRESS, NO COMPLAINTS OF PAIN. URINAL AT BEDSIDE. COLOSTOMY BAG C/D/I.HAS WOUND OF THE MIDDLE OF THE ABDOMEN ALL SAFETY PRECAUTION IN PLACED, HEAD OF BED ELEVATED, BED IN LOWEST AND LOCKED POSITION. SIDE RAILS UP X2, BED ALARM ON, CALL LIGHT WITH IN REACH. WILL CONTINUE TO MONITOR THROUGHOUT THE SHIFT.
[2022-08-11] MEDS ORDERED: PANTOPRAZOLE 40 MG TABLET.DR PO SCH (07:30)
[2022-08-11] MEDS: BLOOD SUGAR DIAGNOSTIC 1 EACH STRIP IN SCH ×2 (07:33→11:49)
[2022-08-11 07:34] LABS: CALCIUM, SERUM 8.7 mg/dL (8.5-10.1); CREATININE 1.8 mg/dL (0.6-1.3); MAGNESIUM 1.7 mg/dL (1.8-2.4); PHOSPHORUS 3.4 mg/dL (2.5-4.9); POTASSIUM 3.6 mmol/L (3.5-5.1)
[2022-08-11 08:00] VITALS: BP 126/75
[2022-08-11] MEDS: APIXABAN 5 MG TABLET PO SCH (08:47)
[2022-08-11] MEDS: SERTRALINE HCL 50 MG TABLET PO SCH (08:48)
[2022-08-11] MEDS: METOPROLOL TARTRATE 25 MG TABLET PO SCH (08:48)
[2022-08-11] MEDS ORDERED: POTASSIUM CHLORIDE 20 MEQ TAB.PRT.SR PO SCH (09:00)
[2022-08-11] MEDS ORDERED: CLOTRIMAZOLE 1% 15 GM TUBE TP SCH (09:00)
[2022-08-11] MEDS: CLOTRIMAZOLE 1% 15 GM TUBE TP SCH (09:00)
[2022-08-11] MEDS ORDERED: FUROSEMIDE 40 MG TABLET PO SCH (09:00)
--- NOTE | 2022-08-11 10:33 | NUR ---
rn note Clotrimazole cream was doubled in EMR that is one of the orders was non admit .
[2022-08-11 12:00] VITALS: BP 130/60
[2022-08-11] MEDS ORDERED: Magnesium 1GM/D5W 100ML PREMIX 100 ML IV SCH (12:00)
[2022-08-11 12:46] LABS: ABG BASE EXCESS 4.4 mmol/L; ABG OXYGEN SATURATION 91.3 % (92.0-98.5); ABG PCO2 52.4 mmHg (35.0-45.0); ABG PH 7.385 (7.350-7.450); ABG PO2 64.8 mmHg (75.0-100.0); AaDO2 22.2 mmHg; COHb 0.7 % (0.5-1.5); O2Hb 90.7 % (94.0-97.0); SITE, ABG Right Radial; VENT MODE, BG RA 21%
[2022-08-11] MEDS ORDERED: MAGNESIUM OXIDE 400 MG TABLET PO ONE (13:00)
[2022-08-11] MEDS ORDERED: BUME0.2513 IV (13:04)
[2022-08-11] MEDS: HYDROCODONE/APAP 5/325MG TABLET PO PRN (13:05)
--- NOTE | 2022-08-11 13:32 | NUR ---
CLARIFIED WITH [facility],PER [facility] HE CHANGED IT TO PO AND ALREADY SEND TO PATIENT PHARMACY,PATIENT DISCHARGE AMBULATORY.
--- NOTE | 2022-08-11 13:38 | NUR ---
RN NOTE PATIENT IS AT STABLE CONDITION , RECEIVED ORDER TO DISCHARGE . DISCHARGE INSTRUCTIONS PROVIDED TO THE PATIENT VERBALLY AND IN WRITTEN PATIENT VERBALIZED UNDERSTANDING . PATIENT IS DISCHARGED FROM [facility]
== END 2022-08-11 14:27 | disposition home or self-care (01) | DRG 291 ==
LOC: ER 21:04 → TELE1 08-09 00:46
PROVIDERS: ADMIT Nurse Practitioner Acute Care; ATTEND Nurse Practitioner Acute Care
PROC: 05HC33Z Insertion of Infusion Device into Left Basilic Vein, Percutaneous Approach (ICD-10-PCS; principal; 2022-08-11)
DX: I13.0 Hypertensive heart and chronic kidney disease with heart failure and stage 1 through stage 4 chronic kidney disease, or unspecified chronic kidney disease (principal); I50.33 Acute on chronic diastolic (congestive) heart failure; N17.0 Acute kidney failure with tubular necrosis; N39.0 Urinary tract infection, site not specified; E66.2 Morbid (severe) obesity with alveolar hypoventilation; Z68.43 Body mass index [BMI] 50.0-59.9, adult; E87.5 Hyperkalemia; Z20.822 Contact with and (suspected) exposure to COVID-19; J44.9 Chronic obstructive pulmonary disease, unspecified; E11.22 Type 2 diabetes mellitus with diabetic chronic kidney disease; E11.42 Type 2 diabetes mellitus with diabetic polyneuropathy; Z93.3 Colostomy status; Z90.49 Acquired absence of other specified parts of digestive tract; Z79.01 Long term (current) use of anticoagulants; Z79.51 Long term (current) use of inhaled steroids; Z79.899 Other long term (current) drug therapy; I48.91 Unspecified atrial fibrillation; I25.10 Atherosclerotic heart disease of native coronary artery without angina pectoris; N18.9 Chronic kidney disease, unspecified; D53.9 Nutritional anemia, unspecified; N40.0 Benign prostatic hyperplasia without lower urinary tract symptoms; E88.09 Other disorders of plasma-protein metabolism, not elsewhere classified; K52.9 Noninfective gastroenteritis and colitis, unspecified
CPT/HCPCS: 36415; 36600; 71045-TC; 76770-TC; 80048-TC; 80061-TC; 80076-TC; 81001; 82962-TC; 83540-TC; 83605-TC; 83735-TC; 83880; 84100-TC; 84443-TC; 84484-TC; 85025-TC; 85027-TC; 85730-TC; 87040-TC; 87081-TC; 87086-TC; 93307-TC; C9113; C9803; G0378; J0696; J1815; J1940; J2270; J2405; J3475; J3490; J7030; J7050; J7060

== ENCOUNTER 2022-10-12 07:40 | Inpatient (IN) | payer MEDICARE, OTHER ==
[~2022-10-12] VITALS: Ht 182.9 cm; Wt 146.1 kg
[~2022-10-12 07:40] MED LIST changes: +BUME0.2513 IV; -FURO40TA5 PO
--- NOTE | 2022-10-12 07:50 | NUR ---
BIB RA 39 FROM HOME, CHEST PAIN SINCE 99,ASA 325 MG AND NTG GIVEN CANVAS CUTTER
--- NOTE | 2022-10-12 07:52 | NUR ---
hooked to monitor , ekg done
--- NOTE | 2022-10-12 08:00 | NUR ---
blood sample obtained sent to lab
[2022-10-12] MEDS ORDERED: ONDANSETRON 4 MG TAB.RAPDIS ONE (08:18)
--- NOTE | 2022-10-12 08:20 | NUR ---
taken to ct
[2022-10-12 08:26] LABS: BASOPHILS % (AUTO) 0.3 % (0.0-2.0); EOSINOPHILS % (AUTO) 2.1 % (0.0-6.0); HEMATOCRIT 42 % (39-51); HEMOGLOBIN 13.3 g/dL (13.5-17.5); LYMPHOCYTES # (AUTO) 0.9 K/uL (0.8-4.8); LYMPHOCYTES % (AUTO) 9.1 % (20.0-44.0); MEAN CORPUSCULAR HGB CONC 32 g/dl (31.0-36.0); MEAN CORPUSCULAR VOLUME 99 fL (80-96); MONOCYTES # (AUTO) 1.2 K/uL (0.1-1.30); MONOCYTES % (AUTO) 12.3 % (2.0-12.0); NEUTROPHILS # (AUTO) 7.2 K/uL (1.8-8.9); NEUTROPHILS % (AUTO) 76.2 % (43.0-81.0); PLATELET COUNT (AUTO) 248 K/uL (150-450); RED BLOOD CELL COUNT(AUTO) 4.26 MIL/uL (4.5-6.0); WHITE BLOOD COUNT (AUTO) 9.4 K/uL (4.3-11.0)
[2022-10-12] MEDS ORDERED: ONDANSETRON 4 MG TAB.RAPDIS SL ONE (08:30)
--- NOTE | 2022-10-12 08:34 | NUR ---
MOVE SHEET SUBMITTED
[2022-10-12 08:40] LABS: CALCIUM, SERUM 9.3 mg/dL (8.5-10.1); CARBON DIOXIDE 21 mmol/L (21-32); CHLORIDE 103 mmol/L (98-107); CREATININE 2.6 mg/dL (0.6-1.3); GLUCOSE 145 mg/dL (74-106); POTASSIUM 5.5 mmol/L (3.5-5.1); SODIUM SERUM 132 mmol/L (136-145); UREA NITROGEN, BLOOD 44 mg/dL (7-18)
--- NOTE | 2022-10-12 09:27 | NUR ---
covid swab taken sent to lab
--- NOTE | 2022-10-12 10:18 | NUR ---
[facility] PAGED
--- NOTE | 2022-10-12 11:13 | NUR ---
midline placed right upper arm
[2022-10-12] MEDS ORDERED: MORPHINE SULFATE INJ 2 MG/ML DISP.SYRIN IV ONE (11:30)
[2022-10-12] MEDS ORDERED: MORPHINE SULFATE INJ 4 MG/ML DISP.SYRIN ONE (11:43)
[2022-10-12] MEDS ORDERED: PREG-58 PO (11:58)
[2022-10-12] MEDS ORDERED: FURO-144 PO (11:58)
--- NOTE | 2022-10-12 12:13 | NUR ---
room [id number]
--- NOTE | 2022-10-12 12:18 | NUR ---
report given to gomez YBARRA
[2022-10-12] MEDS ORDERED: Calcium Gluconate 1GM/10ML 4.65 MEQ in IV NS 0.9% 100 ML IV ONE (12:30)
--- NOTE | 2022-10-12 12:50 | NUR ---
RN Receiving Report Patient AOx4 able to express his own concerns. Patient with sarcastic attitude. Patient able to answer assessment questions, states he liven in an apartment on his own. He has had colostomy for over 15 years. All safety precautions taken, vitals stable, patient with no respiratory distress, Line with no signs of infiltration. Will document. Call light and table within reach, bed at lowest position. Patient introduced to unit and made aware of call light use and plan of care.
--- NOTE | 2022-10-12 13:04 | NUR ---
MOVED TO INPATIENT ROOM SAFELY PER ACLS PROTOCOL
--- NOTE | 2022-10-12 13:24 | NUR ---
CALCIUM GLUCONATE ENDORSED TO FLOOR NURSE
[2022-10-12] MEDS ORDERED: Z GUARD REMEDY 4 OZ OINT TP PRN (13:30)
[2022-10-12] MEDS ORDERED: ONDANSETRON HCL/PF 4 MG/2 ML VIAL IVP PRN (13:30)
[2022-10-12] MEDS ORDERED: ACETAMINOPHEN 325 MG TABLET PO PRN (13:30)
[2022-10-12] MEDS ORDERED: CEFTRIAXONE 2 G in IV D5W 100 ML IV SCH (14:00)
[2022-10-12] MEDS ORDERED: SODIUM POLYSTYRENE SULFONATE 15 G/60 ML BOTTLE PO ONE (14:00)
[2022-10-12] MEDS ORDERED: ALBUTEROL SULFATE 8 GM HFA.AER.AD IH PRN (15:00)
[2022-10-12] MEDS ORDERED: VANCOMYCIN 2 GM in IV D5W 500 ML IV ONE (15:00)
[2022-10-12] MEDS: METOPROLOL TARTRATE 25 MG TABLET PO SCH (16:40)
[2022-10-12] MEDS: PREGABALIN 25 MG CAPSULE PO SCH (16:40)
[2022-10-12] MEDS: SERTRALINE HCL 50 MG TABLET PO SCH (16:41)
[2022-10-12] MEDS: IV NS 0.9% 1,000 ML IV PRN (16:42)
[2022-10-12] MEDS: MORPHINE SULFATE INJ 2 MG/ML DISP.SYRIN IV PRN ×2 (16:42→21:11)
[2022-10-12] MEDS: TAMSULOSIN 0.4 MG CAP.SR.24H PO SCH (17:56)
--- NOTE | 2022-10-12 18:39 | NUR ---
RN Closing Note Patient AOx4 able to express his own concerns. Issues administering antibiotics due to positional midline, charge nurse made aware. Patient remained safe throughout shift. Medications administered as prescribed with some delays due to availability and positional midline. All safety precautions taken, call light and table within reach, bed at lowest position and locked. Will endorse to night nurse for continuity of care.
[2022-10-12] MEDS ORDERED: ALBUTEROL FS 2.5 MG/0.5 ML VIAL.NEB NEB PRN (19:00)
--- NOTE | 2022-10-12 20:00 | NUR ---
TREATING MACHINE OPERATOR OPENING NOTES: RECEIVED PATIENT AWAKE IN BED, BED IN LOW POSITION CALL LIGHTS WITHIN REACH, NO COMPLAIN OF PAIN AND DISCOMFORT AT THIS TIME, ON ROOM AIR SATURATING WELL,PATIENT IS A/OX4 ABLE TO MAKE NEEDS KNOWN, ON TELEMONITOR- [id number] NO SYMPTOMS WAS OBSERVED, ON COLOSTOMY BAG-PATIENT ABLE TODRAIN BY HIMSELF, TOLD TO CALL IF NEED ASSISTANCE, ,IV LINE AT [facility] ML WITH ONGOING 0.9NSS@100ML/HR INFUSING WELL, PATIENT KEPT CLEAN AND DRY ALL NEEDS MET WILL CONTINUE TO MONITOR/
[2022-10-12] MEDS: MEROPENEM 500 MG in IV NS 0.9% 50 ML IV SCH (20:47)
[2022-10-12 21:06] VITALS: BP 126/72
[2022-10-12] MEDS: LINEZOLID 600 MG TABLET PO SCH (21:11)
[2022-10-12] MEDS: LORAZEPAM 0.5 MG TABLET PO PRN (21:11)
[2022-10-12] MEDS: HEPARIN SODIUM, PORCINE 5000 UNITS/1 ML VIAL SQ SCH (21:13)
[2022-10-12] MEDS: MUPIROCIN OINT 2% 22 GM TUBE TP SCH (21:24)
[2022-10-12 23:43] LABS: BILIRUBIN,URINE NEGATIVE (NEGATIVE); COLOR,URINE YELLOW (YELLOW); LEUKOCYTE ESTERASE ,URINE TRACE (NEGATIVE); NITRITE, URINE NEGATIVE (NEGATIVE); PROTEIN,URINE NEGATIVE (NEGATIVE); UGLUCOSE NEGATIVE (NEGATIVE); UROBILINOGEN,URINE 0.2 EU/dL (0.2)
[2022-10-12 23:56] LABS: BACTERIA,URINE Few /HPF (None Seen); SQUAMOUS EPITHELIAL CELL,UR Few /HPF (None Seen)
[2022-10-13] VITALS (7 sets, daily range): BP systolic 95–149; BP diastolic 48–97
[2022-10-13] MEDS: MORPHINE SULFATE INJ 2 MG/ML DISP.SYRIN IV PRN ×5 (01:32→20:16)
[2022-10-13] MEDS: LORAZEPAM 0.5 MG TABLET PO PRN ×2 (03:14→15:59)
--- NOTE | 2022-10-13 06:36 | NUR ---
ETL ANALYST CLOSING NOTES: PATIENT AWAKE IN BED, BE DIN LOW POSITION CALL LIGHTS WITHIN REACH, NO COMPLAIN OF PAIN AND DISCOMFORT AT THIS TIME ON ROOM AIR SATURATING WELL, PATIENT WITH COLOSTOMY BAG DRAIN AND CLEANSE, ON PAIN MANAGEMENT, ON TELE MONITOR- [id number], PATIENT KEPT CLEAN AND DRY ALL NEEDS MET ENDORSE TO INCOMING SHIFT.
--- NOTE | 2022-10-13 07:20 | NUR ---
RN OPENING NOTE RECEIVED PATIENT IN BED, ASLEEP, EASILY AROUSED. NO SIGNS OF ACUTE DISTRESS NOTED. STABLE ON ROOM AIR. NO SOB NOTED, BREATHING EVEN AND UNLABORED. NO C/O PAIN AT THIS TIME. NOTED WITH IV ACCESS ON RIGHT UPPER ARM MIDLINE #18G, INTACT AND PATENT WITH NS @100 ML/HR INFUSING WELL. NOTED WITH COLOSTOMY BAG INTACT, WITH BROWNISH LIQUID STOOL. SAFETY MEASURE IN PLACE. BED IN LOWEST AND LOCKED POSITION, SIDE RAILS UP X2, CALL LIGHT PLACED WITHIN EASY REACH. WILL CONTINUE TO MONITOR PATIENT.
--- NOTE | 2022-10-13 08:11 | NUR ---
WOUND CARE CONSULT: PT PRESENTS WITH SEVERE RASH/REDNESS TO LEFT SIDE OF ABDOMEN WHICH EXTENDS TO GROIN FOLD AND LEFT BUTTOCK WITH OPEN SKIN TO LEFT BUTTOCK, PRESENT ON ADMISSION. PT ALSO HAS LEFT 5TH TOE DISCOLORATION WITH TENDERNESS AND RT 2ND TOE DISTAL ESCHAR, PRESENT ON ADMISSION. PT ABLE TO ASSIST WITH TURNING AND REPOSITIONING IN BED. PT DENIES NEED FOR BARIATRIC BED. RECOMMEND ISOFLEX LOW AIRLOSS BED. DISCUSSED SKIN PROTECTION RECOMMENDATIONS WITH NURSING STAFF. DR JULIA ARMANDO CALLED FOR SURGICAL CONSULT AND DR ORTIZ CALLED FOR DPM CONSULT. MD IN AGREEMENT WITH PLAN OF CARE.
[2022-10-13] MEDS: PANTOPRAZOLE 40 MG TABLET.DR PO SCH (08:40)
[2022-10-13] MEDS: LINEZOLID 600 MG TABLET PO SCH ×2 (08:41→21:42)
[2022-10-13] MEDS: SERTRALINE HCL 50 MG TABLET PO SCH ×2 (08:41→17:18)
[2022-10-13] MEDS: PREGABALIN 25 MG CAPSULE PO SCH ×2 (08:41→17:18)
[2022-10-13] MEDS: ALLOPURINOL 100 MG TABLET PO SCH (08:41)
[2022-10-13] MEDS: HEPARIN SODIUM, PORCINE 5000 UNITS/1 ML VIAL SQ SCH ×2 (08:42→21:44)
[2022-10-13] MEDS: MEROPENEM 500 MG in IV NS 0.9% 50 ML IV SCH ×2 (08:47→20:05)
[2022-10-13] MEDS: METOPROLOL TARTRATE 25 MG TABLET PO SCH ×2 (08:52→17:00)
[2022-10-13 09:06] LABS: BASOPHILS % (AUTO) 0.4 % (0.0-2.0); EOSINOPHILS % (AUTO) 3.2 % (0.0-6.0); HEMATOCRIT 41 % (39-51); HEMOGLOBIN 12.8 g/dL (13.5-17.5); LYMPHOCYTES # (AUTO) 0.8 K/uL (0.8-4.8); LYMPHOCYTES % (AUTO) 9.6 % (20.0-44.0); MEAN CORPUSCULAR HGB CONC 32 g/dl (31.0-36.0); MEAN CORPUSCULAR VOLUME 99 fL (80-96); MONOCYTES # (AUTO) 1.1 K/uL (0.1-1.30); MONOCYTES % (AUTO) 13.4 % (2.0-12.0); NEUTROPHILS # (AUTO) 5.9 K/uL (1.8-8.9); NEUTROPHILS % (AUTO) 73.4 % (43.0-81.0); PLATELET COUNT (AUTO) 242 K/uL (150-450)
[2022-10-13 09:27] LABS: BILIRUBIN,TOTAL 0.3 mg/dL (0.2-1.0); CALCIUM, SERUM 8.8 mg/dL (8.5-10.1); CREATININE 2.3 mg/dL (0.6-1.3); POTASSIUM 5.8 mmol/L (3.5-5.1); TOTAL PROTEIN, SERUM 8.3 g/dL (6.4-8.2)
[2022-10-13] MEDS: CLOTRIMAZOLE/BETAMETASONE DIPROPIONATE 15 GM TUBE TP SCH ×2 (09:32→17:21)
[2022-10-13] MEDS: MUPIROCIN OINT 2% 22 GM TUBE TP SCH ×2 (09:32→21:43)
[2022-10-13 09:41] LABS: MAGNESIUM 2.3 mg/dL (1.8-2.4); PHOSPHORUS 5.2 mg/dL (2.5-4.9)
[2022-10-13] MEDS ORDERED: SODIUM POLYSTYRENE SULF. PWD 15 GM UDC PO ONE (10:00)
[2022-10-13 10:08] LABS: ALBUMIN 3.8 g/dL (3.4-5.0)
[2022-10-13] MEDS: TAMSULOSIN 0.4 MG CAP.SR.24H PO SCH (17:18)
--- NOTE | 2022-10-13 18:36 | NUR ---
RN CLOSING NOTE PATIENT IN BED, ASLEEP, EASILY AROUSED. NO SIGNS OF ACUTE DISTRESS NOTED. REMAINS STABLE ON ROOM AIR. NO SOB NOTED, BREATHING EVEN AND UNLABORED. IV ACCESS ON RIGHT UPPER ARM MIDLINE #18G, INTACT AND PATENT WITH NS @100 ML/HR INFUSING WELL. NOTED WITH COLOSTOMY BAG INTACT, WITH BROWNISH LIQUID STOOL. ALL DUE MEDS GIVEN, TOLERATED WELL. MEDICATED FOR PAIN NEEDED. SAFETY MEASURE MAINTAINED. BED IN LOWEST AND LOCKED POSITION, SIDE RAILS UP X2, CALL LIGHT PLACED WITHIN EASY REACH. WILL ENDORSE TO NEXT SHIFT FOR CONTINUITY OF CARE.
--- NOTE | 2022-10-13 19:43 | NUR ---
RN OPENING NOTE PATIENT AWAKE IN BED. A/OX4. NO S/S OF DISTRESS, BREATHING WITHOUT DIFFICULTY ON ROOM AIR. CATHERINE MIDLINE #18 INTACT AND PATENT W/ NS 100ML/HR. SAFETY MEASURES IN PLACE: BED LOCKED AND AT LOWEST POSITION, RAILS UP X2, CALL LYNN WITHIN REACH. WILL CONTINUE TO MONITOR PATIENT.
[2022-10-14] MEDS: MORPHINE SULFATE INJ 2 MG/ML DISP.SYRIN IV PRN ×6 (00:13→22:08)
--- NOTE | 2022-10-14 06:45 | NUR ---
RN CLOSING NOTE PATIENT ASLEEP IN BED. A/OX4. NO S/S OF DISTRESS, BREATHING WITHOUT DIFFICULTY ON ROOM AIR. CATHERINE MIDLINE #18 INTACT AND PATENT W/ NS 100ML/HR. SAFETY MEASURES IN PLACE: BED LOCKED AND AT LOWEST POSITION, RAILS UP X2, CALL LYNN WITHIN REACH. WILL ENDORSE TO NEXT SHIFT FOR RAJINDER.
[2022-10-14] MEDS: IV NS 0.9% 1,000 ML IV PRN (06:58)
--- NOTE | 2022-10-14 07:00 | NUR ---
MS RN OPENING NOTES; RECEIVED PT IN BED AWAKE ALERT AND ORIENTED X 4, NO SOB OR CARDIAC DISTRESS NOTED. DENIES PAIN AT THIS TIME. NOTED WITH IV ACCESS ON CATHERINE MIDLINE GAUGE 18 PATENT INTACT AND INFUSING IV FLUIDS NS @100ML/HR. COLOSTOMY ON LLQ. SAFETY MEASURES MAINTAINED; BED LOCKED AND IN LOWEST POSITION, SIDE RAILS UP X 2. CALL LIGHT IN EASY REACH FOR HELP. WILL MONITOR PT ACCORDINGLY.
[2022-10-14] MEDS: PANTOPRAZOLE 40 MG TABLET.DR PO SCH (07:22)
[2022-10-14] MEDS: MEROPENEM 500 MG in IV NS 0.9% 50 ML IV SCH ×2 (07:23→20:05)
[2022-10-14 08:00] VITALS: BP 119/60
[2022-10-14] MEDS: PREGABALIN 25 MG CAPSULE PO SCH ×2 (08:55→16:40)
[2022-10-14] MEDS: SERTRALINE HCL 50 MG TABLET PO SCH ×2 (08:55→16:40)
[2022-10-14] MEDS: ALLOPURINOL 100 MG TABLET PO SCH (08:55)
[2022-10-14] MEDS: LINEZOLID 600 MG TABLET PO SCH ×2 (08:55→20:06)
[2022-10-14] MEDS: MUPIROCIN OINT 2% 22 GM TUBE TP SCH ×2 (08:56→20:10)
[2022-10-14] MEDS: CLOTRIMAZOLE/BETAMETASONE DIPROPIONATE 15 GM TUBE TP SCH ×2 (08:56→17:04)
[2022-10-14] MEDS: METOPROLOL TARTRATE 25 MG TABLET PO SCH ×2 (08:57→17:02)
[2022-10-14] MEDS: HEPARIN SODIUM, PORCINE 5000 UNITS/1 ML VIAL SQ SCH ×2 (09:09→20:09)
[2022-10-14 16:00] VITALS: BP 160/60
[2022-10-14] MEDS: TAMSULOSIN 0.4 MG CAP.SR.24H PO SCH (17:02)
--- NOTE | 2022-10-14 18:43 | NUR ---
MS RN CLOSING NOTES: PATIENT AWAKE, A/O X 4 AND ABLE TO MAKE NEEDS KNOWN, NO SOB OR CARDIAC DISTRESS NOTED. ON PAIN MANAGEMENT ORDERED. PATIENT REFUSED COLOSTOMY CARE, COLOSTOMY ON LLQ.WE ARE ABLE TO CHANGED HIS SHEETS,AND ABLE TO CLEAN HIS WOUND AND APPLY CREAM. IV ACCESS ON CATHERINE MIDLINE GAUGE 18, PATENT AND INTACT INFUSING IV FLUIDS OF NS @100ML/HR. SAFETY MEASURES MAINTAINED: BED LOCKED AND IN LOWEST POSITION, SIDE RAILS UP X 2 CALL LIGHT IN EASY REACH. ENDORSED TO SEED CORE OPERATOR RN FOR CONTINUITY OF CARE.
[2022-10-14 20:00] VITALS: BP 114/57
--- NOTE | 2022-10-14 20:00 | NUR ---
MS RN OPENING NOTES RECEIVED PT IN BED AWAKE ALERT AND ORIENTED X 4, NO SOB OR CARDIAC DISTRESS NOTED. DENIES PAIN AT THIS TIME. NOTED WITH IV ACCESS ON CATHERINE MIDLINE GAUGE 18 PATENT INTACT AND INFUSING IV FLUIDS NS @100ML/HR. COLOSTOMY ON LLQ. SAFETY MEASURES MAINTAINED; BED LOCKED AND IN LOWEST POSITION, SIDE RAILS UP X 2. CALL LIGHT IN EASY REACH FOR HELP. WILL MONITOR PT ACCORDINGLY. Addendum: 10/14/22 at 2241 by CHANDRAKANT GUEVARA RN ATIVAN GIVEN REQUESTED BY PATIENT. WILL CONTINUE TO MONITOR
[2022-10-14] MEDS: LORAZEPAM 0.5 MG TABLET PO PRN (20:06)
--- NOTE | 2022-10-14 22:00 | NUR ---
RN NOTES - PAIN COMPLAINS OF PAIN AT RIGHT LATERAL ABDOMEN, RATED SCALE 8/10. GUARDING SITE. GIVEN MORPHINE 2MG IV PRN. WILL CONTINUE TO MONITOR
[2022-10-15] MEDS: MORPHINE SULFATE INJ 2 MG/ML DISP.SYRIN IV PRN ×4 (02:04→18:50)
--- NOTE | 2022-10-15 02:08 | NUR ---
RN NOTES - PAIN COMPLAINS OF PAIN AT RIGHT LATERAL ABDOMEN, RATED SCALE 9/10. GUARDING SITE, RESTLESS. GIVEN MORPHINE 2MG IV PRN. WILL CONTINUE TO MONITOR
--- NOTE | 2022-10-15 06:51 | NUR ---
MS RN CLOSING NOTES PATIENT AWAKE, A/O X 4 AND ABLE TO MAKE NEEDS KNOWN, NO SOB OR CARDIAC DISTRESS NOTED. ON PAIN MANAGEMENT ORDERED. PATIENT REFUSED COLOSTOMY CARE, COLOSTOMY ON LLQ. PREFERRED SELF-EMPTYING OF THE BAG. REFUSED LINEN CHANGE AT THIS TIME. IV ACCESS ON CATHERINE MIDLINE #18, PATENT AND INTACT INFUSING NS @100ML/HR. DUE MEDS GIVEN. SAFETY MEASURES MAINTAINED: BED LOCKED AND IN LOWEST POSITION, SIDE RAILS UP X 2 CALL LIGHT IN EASY REACH. ENDORSED TO DAY SHIFT RN FOR CONTINUITY OF CARE.
[2022-10-15 07:29] LABS: BASOPHILS % (AUTO) 0.3 % (0.0-2.0); EOSINOPHILS % (AUTO) 1.7 % (0.0-6.0); HEMATOCRIT 38 % (39-51); HEMOGLOBIN 11.9 g/dL (13.5-17.5); LYMPHOCYTES # (AUTO) 0.5 K/uL (0.8-4.8); LYMPHOCYTES % (AUTO) 7.6 % (20.0-44.0); MEAN CORPUSCULAR HGB CONC 31 g/dl (31.0-36.0); MEAN CORPUSCULAR VOLUME 98 fL (80-96); MONOCYTES # (AUTO) 0.6 K/uL (0.1-1.30); MONOCYTES % (AUTO) 8.4 % (2.0-12.0); NEUTROPHILS # (AUTO) 5.9 K/uL (1.8-8.9); PLATELET COUNT (AUTO) 245 K/uL (150-450); WHITE BLOOD COUNT (AUTO) 7.2 K/uL (4.3-11.0)
--- NOTE | 2022-10-15 07:48 | NUR ---
MS RN OPENING NOTE RECEIVED PT IN BED AWAKE ALERT AND ORIENTED X 4, NO SOB OR CARDIAC DISTRESS NOTED. DENIES PAIN AT THIS TIME. NOTED WITH IV ACCESS ON CATHERINE MIDLINE GAUGE 18 PATENT INTACT AND INFUSING IV FLUIDS NS @100ML/HR. COLOSTOMY ON LLQ. SAFETY MEASURES MAINTAINED; BED LOCKED AND IN LOWEST POSITION, SIDE RAILS UP X 2. CALL LIGHT IN EASY REACH FOR HELP. WILL MONITOR PT ACCORDINGLY.
[2022-10-15 08:00] VITALS: BP 112/63
[2022-10-15 08:01] LABS: CALCIUM, SERUM 9.1 mg/dL (8.5-10.1); MAGNESIUM 2.4 mg/dL (1.8-2.4); PHOSPHORUS 3.7 mg/dL (2.5-4.9)
[2022-10-15 08:07] LABS: POTASSIUM 6.4 mmol/L (3.5-5.1)
[2022-10-15] MEDS: MEROPENEM 500 MG in IV NS 0.9% 50 ML IV SCH ×2 (08:56→21:38)
[2022-10-15] MEDS: PREGABALIN 25 MG CAPSULE PO SCH ×2 (08:57→17:23)
[2022-10-15] MEDS: PANTOPRAZOLE 40 MG TABLET.DR PO SCH (08:57)
[2022-10-15] MEDS: ALLOPURINOL 100 MG TABLET PO SCH (08:57)
[2022-10-15] MEDS: METOPROLOL TARTRATE 25 MG TABLET PO SCH ×2 (09:00→17:23)
[2022-10-15] MEDS: MUPIROCIN OINT 2% 22 GM TUBE TP SCH ×2 (09:01→21:40)
[2022-10-15] MEDS: LINEZOLID 600 MG TABLET PO SCH ×2 (09:01→21:38)
[2022-10-15] MEDS: CLOTRIMAZOLE/BETAMETASONE DIPROPIONATE 15 GM TUBE TP SCH ×2 (09:01→17:24)
[2022-10-15] MEDS: SERTRALINE HCL 50 MG TABLET PO SCH ×2 (09:01→17:23)
[2022-10-15] MEDS: HEPARIN SODIUM, PORCINE 5000 UNITS/1 ML VIAL SQ SCH ×2 (09:03→21:39)
[2022-10-15] MEDS ORDERED: SODIUM POLYSTYRENE SULFONATE 15 G/60 ML BOTTLE PO ONE ×2 (09:30→15:00)
--- NOTE | 2022-10-15 11:36 | NUR ---
MS RN Note A PRN dressing change done on midline catheter to right upper arm because dressing had no date on it and was peeling off pt's skin due to perspiration possibly. Patient tolerated the sterile, aseptic technique dressing change well, except had to be reminded to keep on face mask during dressing change. Dressing now clean, dry, intact with biopatch under clear transparent occlusive dressing. IV midline catheter patent, flushed without resistance and infusing NS @ 100mLs /hr. Will continue to monitor patient condition and midline IV site.
[2022-10-15 16:00] VITALS: BP 133/76
[2022-10-15] MEDS: TAMSULOSIN 0.4 MG CAP.SR.24H PO SCH (17:23)
--- NOTE | 2022-10-15 18:05 | NUR ---
MS RN Note Patient refused to allow CERTIFIED HISTOLOGIC TECHNICIAN and RNs to do bed bath x 3 and refused AM and PM hygiene care. Did allow RNs to empty his colostomy bag and urinal. Will encourage patient to allow staff to help maintain pt's hygiene.
--- NOTE | 2022-10-15 18:09 | NUR ---
MS RN CLOSING NOTES: PATIENT AWAKE, A/O X 4 AND ABLE TO MAKE NEEDS KNOWN, NO SOB OR CARDIAC DISTRESS NOTED. ON PAIN MANAGEMENT ORDERED. PATIENT REFUSED AM/PM HYGIENE CARE. PT ALLOWED STAFF TO DO COLOSTOMY CARE. COLOSTOMY ON LLQ. STAFF ABLE TO CHANGE PT'S SHEETS AND ABLE TO CLEAN HIS WOUND AND APPLY CREAM. IV ACCESS ON CATHERINE MIDLINE GAUGE 18, PATENT AND INTACT INFUSING IV FLUIDS OF NS @100ML/HR. PRN DRESSING CHANGE OF MIDLINE CATHTER DRESSING DONE. SAFETY MEASURES MAINTAINED: BED LOCKED AND IN LOWEST POSITION, SIDE RAILS UP X 2 CALL LIGHT IN EASY REACH. ENDORSED TO MAGAZINE WRITER RN FOR CONTINUITY OF CARE.
[2022-10-15 19:29] LABS: CALCIUM, SERUM 9.2 mg/dL (8.5-10.1); CREATININE 2.3 mg/dL (0.6-1.3); POTASSIUM 5.1 mmol/L (3.5-5.1)
[2022-10-15] MEDS ORDERED: SODIUM POLYSTYRENE SULF. PWD 15 GM UDC PO SCH (19:30)
--- NOTE | 2022-10-15 19:44 | NUR ---
MS RN OPENING NOTE RECEIVED PT IN BED, FOWLERS POSITION. AWAKE ALERT AND ORIENTED X 4, NO SOB OR CARDIAC DISTRESS NOTED. DENIES PAIN AT THIS TIME. NOTED WITH IV ACCESS ON CATHERINE MIDLINE GAUGE 18 PATENT INTACT AND INFUSING IV FLUIDS NS @100ML/HR. COLOSTOMY ON LLQ. SAFETY MEASURES MAINTAINED; BED LOCKED AND IN LOWEST POSITION, SIDE RAILS UP X 2. CALL LIGHT IN EASY REACH FOR HELP. WILL MONITOR PT ACCORDINGLY.
--- NOTE | 2022-10-16 06:46 | NUR ---
MS RN CLOSING NOTES PATIENT AWAKE, A/O X 4 AND ABLE TO MAKE NEEDS KNOWN, NO SOB OR CARDIAC DISTRESS NOTED. ON PAIN MANAGEMENT ORDERED. PATIENT REFUSED COLOSTOMY CARE, COLOSTOMY ON LLQ. PREFERRED SELF-EMPTYING OF COLOSTOMY BAG. AM CARE DONE. IV [id number] ON CATHERINE MIDLINE #18, PATENT AND INTACT INFUSING NS @100ML/HR. DUE MEDS GIVEN. SAFETY MEASURES MAINTAINED: BED LOCKED AND IN LOWEST POSITION, SIDE RAILS UP X 2 CALL LIGHT IN EASY REACH. ENDORSED TO DAY SHIFT RN FOR CONTINUITY OF CARE.
[2022-10-16 07:00] LABS: BASOPHILS % (AUTO) 0.5 % (0.0-2.0); EOSINOPHILS % (AUTO) 4.5 % (0.0-6.0); HEMATOCRIT 39 % (39-51); HEMOGLOBIN 12.4 g/dL (13.5-17.5); LYMPHOCYTES # (AUTO) 0.5 K/uL (0.8-4.8); LYMPHOCYTES % (AUTO) 9.6 % (20.0-44.0); MEAN CORPUSCULAR HGB CONC 32 g/dl (31.0-36.0); MEAN CORPUSCULAR VOLUME 97 fL (80-96); MONOCYTES # (AUTO) 0.6 K/uL (0.1-1.30); MONOCYTES % (AUTO) 10.8 % (2.0-12.0); NEUTROPHILS # (AUTO) 4.2 K/uL (1.8-8.9); NEUTROPHILS % (AUTO) 74.6 % (43.0-81.0); PLATELET COUNT (AUTO) 246 K/uL (150-450); WHITE BLOOD COUNT (AUTO) 5.7 K/uL (4.3-11.0)
[2022-10-16 07:05] LABS: CALCIUM, SERUM 9.3 mg/dL (8.5-10.1); MAGNESIUM 2.3 mg/dL (1.8-2.4); POTASSIUM 4.9 mmol/L (3.5-5.1)
--- NOTE | 2022-10-16 07:35 | NUR ---
MS RN OPENING NOTE RECEIVED PT IN BED, HOB ELEVATED 40 DEGREES, ASLEEP, EASILY AROUSABLE, AOX4, PATIENT APPEARS WITHDRAWN, NO SOB OR ANY APPARENT DISTRESS NOTED. DENIES PAIN NOR DISCOMFORT AT THIS TIME. WITH IV ACCESS ON CATHERINE MIDLINE GAUGE 18 PATENT INTACT AND INFUSING IV FLUIDS NS @100 ML/HR. COLOSTOMY ON LLQ, PATIENT REFUSED TO CHANGE DRESSING DESPITE ENCOURAGEMENT, PATIENT DOES IT HIMSELF. SAFETY MEASURES IN PLACE, BED LOCKED AND IN LOWEST POSITION, SIDE RAILS UP X 2. CALL LIGHT AND TRAY TABLE WIITHIN EASY REACH FOR HELP. WILL CONTINUE TO MONITOR PATIENT.
[2022-10-16] MEDS: PANTOPRAZOLE 40 MG TABLET.DR PO SCH (07:51)
[2022-10-16] MEDS: MEROPENEM 500 MG in IV NS 0.9% 50 ML IV SCH (07:55)
[2022-10-16 08:00] VITALS: BP 110/74
[2022-10-16] MEDS: CLOTRIMAZOLE/BETAMETASONE DIPROPIONATE 15 GM TUBE TP SCH ×2 (09:00→17:00)
[2022-10-16] MEDS: MUPIROCIN OINT 2% 22 GM TUBE TP SCH (09:00)
[2022-10-16] MEDS: HEPARIN SODIUM, PORCINE 5000 UNITS/1 ML VIAL SQ SCH (10:31)
[2022-10-16] MEDS: PREGABALIN 25 MG CAPSULE PO SCH ×2 (10:32→17:00)
[2022-10-16] MEDS: SERTRALINE HCL 50 MG TABLET PO SCH ×2 (10:32→17:00)
[2022-10-16] MEDS: LINEZOLID 600 MG TABLET PO SCH (10:33)
[2022-10-16] MEDS: METOPROLOL TARTRATE 25 MG TABLET PO SCH ×2 (10:33→17:00)
[2022-10-16] MEDS: ALLOPURINOL 100 MG TABLET PO SCH (10:34)
[2022-10-16] MEDS ORDERED: Linezolid PO (12:16)
[2022-10-16] MEDS ORDERED: MERO500P IV (12:16)
[2022-10-16 16:00] VITALS: BP 115/73
--- NOTE | 2022-10-16 16:00 | NUR ---
RN NOTES - PATIENT DID EVALUATION WITH PT, INSISTED TO CHANGE TO HIS CIVILIAN CLOTHES, REMOVED THE IV LINE HIMSELF, NO NOTED BLEEDING, APPLIED PRESSURE GAUZE, PATIENT WAS ABLE TO TOLERATE EXERCISE BUT PT WONT RECOMMEND GOING HOME, PERHAPS ARU, BUT PATIENT IS ADAMANTLY REFUSING AND WANTS TO GO HOME.
[2022-10-16 17:00] VITALS: BP 130/70
--- NOTE | 2022-10-16 17:54 | NUR ---
RN NOTES - PATIENT REFUSING ALL DUE MEDS DESPITE EDUCATION AND ENCOURAGEMENT. PATIENT REFUSES TO HAVE THE COLOSTOMY BAG BE CHANGED BY US HE HAS HIS OWN.
[2022-10-16] MEDS: TAMSULOSIN 0.4 MG CAP.SR.24H PO SCH (18:00)
--- NOTE | 2022-10-16 18:35 | NUR ---
MS PLANNING OFFICIAL NOTE PT DISCHARGED TO HOME IN STABLE CONDITION, AOX3-4, ABLE TO MAKE NEEDS KNOWN, ON ROOM AIR WITH SPO2 OF 98%, NO SOB NOTED, NOT IN ANY FORM OF APPARENT DISTRESS. VITAL SIGNS TAKEN, STABLE AND RECORDED. PATIENT REFUSED TO HAVE PICTURES OF ABDOMEN TAKEN HE HAD ALREADY CHANGED. PICTURES TAKEN THE NIGHT BEFORE. PATIENT WAS ADVISED TO GO THE SNF BUT REFUSED DESPITE EDUCATION AND ENCOURAGEMENT. PATIENT IS SAYING HE HAS HELP AT HOME FROM HIS NEIGHBORS. SPOKE WITH CM AND WAS TOLD THAT HOME HEALTH HAS BEEN CONTACTED TO FOLLOW UP. ALL BELONGINGS ACCOUNTED FOR, FORM SIGNED. DISCHARGE INSTRUCTIONS GIVEN TO THE PATIENT INCLUDING WHERE TO GET THE MEDICATIONS ALL QUESTIONS ANSWERED. NO IV ACCESS PREVIOUSLY REMOVED. TAXI WAS HAILED BY CHARGE NURSE AND PATIENT LEFT THE UNIT AT 1830 ACCOMPANIED BY ENCYCLOPEDIA RESEARCH WORKER. CHARGE NURSE AND MD AWARE OF THE DC.
== END 2022-10-16 18:35 | disposition home health service (06) | DRG 602 ==
LOC: ER 07:58 → TELE 12:33 → MED 10-13 11:46
PROVIDERS: ADMIT Nurse Practitioner Family; ATTEND Internal Medicine
PROC: 05H533Z Insertion of Infusion Device into Right Subclavian Vein, Percutaneous Approach (ICD-10-PCS; principal; 2022-10-12)
PROC: B546ZZA Ultrasonography of Right Subclavian Vein, Guidance (ICD-10-PCS; 2022-10-12)
DX: L03.311 Cellulitis of abdominal wall (principal); I50.33 Acute on chronic diastolic (congestive) heart failure; N17.0 Acute kidney failure with tubular necrosis; E87.1 Hypo-osmolality and hyponatremia; D68.59 Other primary thrombophilia; I13.0 Hypertensive heart and chronic kidney disease with heart failure and stage 1 through stage 4 chronic kidney disease, or unspecified chronic kidney disease; Z68.41 Body mass index [BMI] 40.0-44.9, adult; N18.9 Chronic kidney disease, unspecified; E78.5 Hyperlipidemia, unspecified; I25.10 Atherosclerotic heart disease of native coronary artery without angina pectoris; G47.33 Obstructive sleep apnea (adult) (pediatric); E87.5 Hyperkalemia; Z20.822 Contact with and (suspected) exposure to COVID-19; I48.91 Unspecified atrial fibrillation; J44.9 Chronic obstructive pulmonary disease, unspecified; E11.22 Type 2 diabetes mellitus with diabetic chronic kidney disease; E11.40 Type 2 diabetes mellitus with diabetic neuropathy, unspecified; E66.9 Obesity, unspecified; N40.0 Benign prostatic hyperplasia without lower urinary tract symptoms; E66.01 Morbid (severe) obesity due to excess calories; Z79.01 Long term (current) use of anticoagulants; Z90.49 Acquired absence of other specified parts of digestive tract; R07.89 Other chest pain; L89.891 Pressure ulcer of other site, stage 1; S91.105A Unspecified open wound of left lesser toe(s) without damage to nail, initial encounter; X58.XXXA Exposure to other specified factors, initial encounter; Y93.9 Activity, unspecified; Y92.009 Unspecified place in unspecified non-institutional (private) residence as the place of occurrence of the external cause; R21 Rash and other nonspecific skin eruption; L98.9 Disorder of the skin and subcutaneous tissue, unspecified; L98.491 Non-pressure chronic ulcer of skin of other sites limited to breakdown of skin; Z93.3 Colostomy status
CPT/HCPCS: 36410; 36415; 71045-TC; 76770-TC; 80048-TC; 80053-TC; 81001; 83735-TC; 84100-TC; 84484-TC; 85025-TC; 87040-TC; 87081-TC; 87086-TC; 97116-TC; 97530-TC; A6403; C9803; G0378; J0610; J0696; J1644; J2185; J2270; J3370; J7030; J7050; J7060; Q0162

== ENCOUNTER 2022-12-11 07:49 | Inpatient (IN) | payer MEDICARE, OTHER ==
[~2022-12-11] VITALS: Ht 182.9 cm; Wt 144.2 kg
[~2022-12-11 07:49] MED LIST changes: -BUME0.2513 IV; -CLOT15CR35 TP; -CLOT15CR5 TP; +Linezolid PO; +MERO500P IV; +PREG-58 PO; -SILV50CR32 TP
--- NOTE | 2022-12-11 07:59 | NUR ---
PT IN ROOM, A/O X4 C/O SOB. CONNECTED TO O2 SAT MONITOR 94% ON ROOM AIR. ER AT BEDSIDE. BLOOD DRAW IN PROCESS.
[2022-12-11] MEDS ORDERED: ONDANSETRON HCL/PF - ER 4 MG/2 ML VIAL IV ONE ×2 (08:00→10:30)
[2022-12-11] MEDS ORDERED: MORPHINE SULFATE INJ 2 MG/ML DISP.SYRIN IV ONE ×2 (08:00→10:30)
--- NOTE | 2022-12-11 08:10 | NUR ---
COVID SWAB COLLECTED AND SENT TO LAB
[2022-12-11] MEDS ORDERED: MORPHINE SULFATE INJ 2 MG/ML DISP.SYRIN ONE (08:22)
[2022-12-11] MEDS ORDERED: ONDANSETRON HCL/PF 4 MG/2 ML VIAL ONE ×2 (08:22→10:33)
[2022-12-11 08:38] LABS: RED BLOOD CELL COUNT(AUTO) 5.37 MIL/uL (4.5-6.0); WHITE BLOOD COUNT (AUTO) 9.2 K/uL (4.3-11.0)
[2022-12-11 08:39] LABS: BASOPHILS # (AUTO) 0.1 K/uL (0.0-0.2); BASOPHILS % (AUTO) 0.6 % (0.0-2.0); EOSINOPHILS % (AUTO) 0.9 % (0.0-6.0); HEMATOCRIT 51 % (39-51); HEMOGLOBIN 16.4 g/dL (13.5-17.5); LYMPHOCYTES # (AUTO) 1.1 K/uL (0.8-4.8); LYMPHOCYTES % (AUTO) 11.8 % (20.0-44.0); MEAN CORPUSCULAR HGB CONC 32 g/dl (31.0-36.0); MEAN CORPUSCULAR VOLUME 94 fL (80-96); MONOCYTES # (AUTO) 0.9 K/uL (0.1-1.30); MONOCYTES % (AUTO) 10.2 % (2.0-12.0); NEUTROPHILS % (AUTO) 76.5 % (43.0-81.0); PLATELET COUNT (AUTO) 235 K/uL (150-450)
--- NOTE | 2022-12-11 08:49 | NUR ---
director clinical operations collected labs and cultures
[2022-12-11] MEDS ORDERED: FURO-144 PO (09:11)
[2022-12-11] MEDS ORDERED: ZOLP5TAB8 PO (09:11)
[2022-12-11] MEDS ORDERED: PANT40TA49 PO (09:11)
--- NOTE | 2022-12-11 10:20 | NUR ---
MIDLINE INSERTION COMPLETE SALINE FLUSH/ SALINE LOCK
[2022-12-11] MEDS ORDERED: MORPHINE SULFATE INJ 4 MG/ML DISP.SYRIN ONE (10:33)
[2022-12-11 10:52] LABS: ALANINE AMINOTRANSFERASE 26 U/L (12-78); ALBUMIN 3.9 g/dL (3.4-5.0); ALKALINE PHOSPHATASE 86 U/L (46-116); ASPARTATE AMINOTRANSFERASE 19 U/L (15-37); BILIRUBIN,DIRECT 0.2 mg/dL (0.0-0.2); BILIRUBIN,TOTAL 0.6 mg/dL (0.2-1.0); CARBON DIOXIDE 13 mmol/L (21-32); CHLORIDE 95 mmol/L (98-107); CREATININE 4.5 mg/dL (0.6-1.3); GLUCOSE 151 mg/dL (74-106); SODIUM SERUM 123 mmol/L (136-145); TOTAL PROTEIN, SERUM 9.2 g/dL (6.4-8.2)
[2022-12-11 10:56] LABS: UREA NITROGEN, BLOOD 109 mg/dL (7-18)
[2022-12-11] MEDS ORDERED: hydrALAZINE HCL IV 20 MG VIAL IV PRN (11:30)
[2022-12-11] MEDS ORDERED: IV NS 0.9% 1,000 ML BAG IV ONE (11:30)
[2022-12-11] MEDS ORDERED: ALBUTEROL SULFATE 8 GM HFA.AER.AD IH PRN (11:30)
[2022-12-11] MEDS ORDERED: ZOLPIDEM TARTRATE 5 MG TABLET PO PRN (11:30)
[2022-12-11] MEDS ORDERED: ALBUTEROL FS 2.5 MG/0.5 ML VIAL.NEB NEB PRN (11:30)
[2022-12-11] MEDS ORDERED: ACETAMINOPHEN 325 MG TABLET PO PRN (11:30)
--- NOTE | 2022-12-11 11:50 | NUR ---
BED GIVEN 328-1
[2022-12-11] MEDS ORDERED: IPRATROPIUM/ALBUTEROL INHALER IH SCH (12:00)
[2022-12-11] MEDS ORDERED: DEXTROSE 50%-WATER 50 ML DISP.SYRIN IV PRN (12:00)
--- NOTE | 2022-12-11 12:04 | NUR ---
REPORT GIVEN TO QUETA RN 3W NURSE FOR RAJINDER
[2022-12-11 12:25] VITALS: BP 134/88
--- NOTE | 2022-12-11 12:25 | NUR ---
RN NOTE- PT ARRIVED FROM ED FOR ADMISSION / SOB / CHF. BEGIN ADMIT PROCESS
--- NOTE | 2022-12-11 12:26 | NUR ---
OIL GAUGER NOTE- 67 Y/O MALE BROUGHT FROM ED FOR SOB AND CHF. PT W PAST MEDICAL HX - AFIB, CHF, DM, HTN, IBS W RESECTION AND OSTOMY. VS- BP- 134.88, HR- TELE AFIB AT 74, RR- 18, T- 98.1, O2 SATS AT 98%RA. ACCU CHECK BS- 151. REFUSED SSI. LUNCH PROVIDED, MADE COMFORTABLE. CATHERINE ML #18G INFUSING NS AT 100/HR. CHEST W DIMINISHED BREATH SOUNDS ON AUSCULTATION, BS + AND HYPOACTIVE TO ABDOMEN, PERIPHERAL PULSES +, SKIN INTACT, OSTOMY W STOOL COLLECTED. SIDE RAILS UP X 4, CALL LIGHT IN REACH. BED LOCKED. MONITOR / ASSIST
[2022-12-11] MEDS ORDERED: IPRATROPIUM NEB FS 0.5 MG/2.5 ML AMPUL.NEB NEB PRN (12:30)
[2022-12-11] MEDS: BLOOD SUGAR DIAGNOSTIC 1 EACH STRIP IN SCH ×3 (12:58→21:15)
[2022-12-11] MEDS: IPRATROPIUM NEB FS 0.5 MG/2.5 ML AMPUL.NEB IH SCH ×3 (13:30→20:05)
[2022-12-11] MEDS: ALBUTEROL FS 2.5 MG/0.5 ML VIAL.NEB NEB SCH ×3 (13:30→20:05)
[2022-12-11] MEDS: MORPHINE SULFATE INJ 2 MG/ML DISP.SYRIN IV PRN ×3 (15:23→23:47)
[2022-12-11 16:00] VITALS: BP 104/44
[2022-12-11] MEDS: APIXABAN 5 MG TABLET PO SCH (16:33)
[2022-12-11] MEDS: PREGABALIN 25 MG CAPSULE PO SCH (16:33)
[2022-12-11] MEDS: INSULIN REGULAR, HUMAN 100 UNIT/ML 3 ML VIAL SQ PRN ×2 (16:55→21:17)
--- NOTE | 2022-12-11 18:19 | NUR ---
RN NOTE- PT HADN'T VOIDED. MD AWARE. BLADDER SCANNED. PT RETAINING 85 CC UA ONLY. REPORTED TO STAFF AND MD. MONITORING
--- NOTE | 2022-12-11 18:29 | NUR ---
RN CLOSING NOTE- AOX4 IN BED, MAKES NEEDS KNOWN, VS STABLE, PO INTAKE GOOD, OSTOMY COLLECTED STOOL. PT STATES "I WILL CHANGE TOMORROW." BLADDER SCANNED, 85ML RETAINED. WILL NOTIFY NOC SHIFT TO MONITOR OUTPUT. NS @100 /HR VIA ML TO CATHERINE #18G. SIDE RAILS UP, CALL LIGHT CLOSE. MONITOR, ASSIST
--- NOTE | 2022-12-11 19:20 | NUR ---
noc rn opening note received patient in bed a/ox4. no s/s of apparent distress on room air. c/o 06/14 pain on his abdomen-- will medicate. patient noted to have colostomy bag, not wearing any hospital gown at this time. reading a-fib at this time. controlled. patient needs attended for now. call light within reach. safety in place. will continue with patient's plan of care.
--- NOTE | 2022-12-11 19:38 | NUR ---
noc rn note URINE RANDOM COLLECTED AT THIS TIME.
[2022-12-11 20:00] VITALS: BP 101/61
[2022-12-11 20:31] LABS: BILIRUBIN,URINE NEGATIVE (NEGATIVE); COLOR,URINE YELLOW (YELLOW); LEUKOCYTE ESTERASE ,URINE NEGATIVE (NEGATIVE); NITRITE, URINE NEGATIVE (NEGATIVE); PROTEIN,URINE NEGATIVE (NEGATIVE); UGLUCOSE NEGATIVE (NEGATIVE); UROBILINOGEN,URINE 0.2 EU/dL (0.2)
[2022-12-11] MEDS: SERTRALINE HCL 50 MG TABLET PO SCH (21:11)
[2022-12-11] MEDS: METOPROLOL TARTRATE 25 MG TABLET PO SCH (21:11)
[2022-12-11] MEDS: TAMSULOSIN 0.4 MG CAP.SR.24H PO SCH (21:11)
[2022-12-12] VITALS: BP 95/58
[2022-12-12 04:00] VITALS: BP 94/55
--- NOTE | 2022-12-12 04:59 | NUR ---
noc rn note refusing to change colostomy bag today and to quote "No, not today. I change it myself". Informed patient that I put a new colostomy bag by his side table whenever he is ready to change it and per patient "No. I have my own"
--- NOTE | 2022-12-12 05:01 | NUR ---
herve rn note toby on getting his pain medication. Patient teaching done about getting morphine and his low BP. Patient about teaching. will re-assess BP. Addendum: 12/12/22 at 0524 by CYNTHIA ELIAS RN herve rn note toby on getting his pain medication. Patient teaching done about getting morphine and his low BP. Patient PASSIVE about teaching and refused non-pharmacological offers to relieved pain. will re-assess BP.
[2022-12-12] MEDS: MORPHINE SULFATE INJ 2 MG/ML DISP.SYRIN IV PRN ×4 (05:47→22:40)
--- NOTE | 2022-12-12 05:55 | NUR ---
noc rn note Patient c/o 8/10 pain on his abdomen. bp 104/53 hr-73. Refused patient teaching. refused heating pack and non-pharmacological ways to relieve the pain. when asked what non-pharmacological ways he does at home to relieved the pain per patient and to quote "It's none of your business" "just give me the pain medication". Given morphine as ordered PRN at this time.
[2022-12-12] MEDS: BLOOD SUGAR DIAGNOSTIC 1 EACH STRIP IN SCH ×4 (06:30→21:47)
[2022-12-12] MEDS: INSULIN REGULAR, HUMAN 100 UNIT/ML 3 ML VIAL SQ PRN ×4 (06:31→21:49)
[2022-12-12 07:00] VITALS: BP 87/59
--- NOTE | 2022-12-12 07:02 | NUR ---
noc rn closing note patient sleeping comfortably in bed. no s/s of apparent distress on 2lpm of o2 via nc. pain managed with medications. reading a-fib throughout shift. all needs attended. all scheduled medication administered. no significant change throughout shift. safety in place. will endorse to morning shift rn for continuity of care.
--- NOTE | 2022-12-12 07:11 | NUR ---
VIBRATORY PILE DRIVER OPENING NOTES RECEIVED PATIENT AWAKE IN BED, A/Ox4 ABLE TO MAKE NEEDS KNOWN. ON ROOM AIR, NO S/S OF RESPIRATORY DISTRESS. PATIENT ON TELE MONITORING SHOWING A-FIB HR 66. NO C/O OF CHEST PAIN OR DISCOMFORT. PATIENT AMBULATORY, HAS COLOSTOMY AND USES URINAL. IV ACCESS CATHERINE MIDLINE #18G S/L. SKIN INTACT. SAFETY MEASURES IN PLACE: BED LOCKED AND IN LOWEST POSITION, SIDE RAILS UPx2, CALL LIGHT WITHIN REACH, HOB ELEVATED. WILL CONTINUE TO MONITOR.
[2022-12-12] MEDS: PANTOPRAZOLE 40 MG TABLET.DR PO SCH (07:30)
[2022-12-12] MEDS: ALBUTEROL FS 2.5 MG/0.5 ML VIAL.NEB NEB SCH ×3 (07:35→19:30)
[2022-12-12] MEDS: IPRATROPIUM NEB FS 0.5 MG/2.5 ML AMPUL.NEB IH SCH ×3 (07:35→19:30)
[2022-12-12] MEDS: METOPROLOL TARTRATE 25 MG TABLET PO SCH ×2 (09:00→20:52)
[2022-12-12] MEDS: APIXABAN 5 MG TABLET PO SCH ×2 (09:22→16:55)
[2022-12-12] MEDS: PREGABALIN 25 MG CAPSULE PO SCH ×2 (09:23→16:54)
[2022-12-12] MEDS: SERTRALINE HCL 50 MG TABLET PO SCH ×2 (09:23→20:51)
--- NOTE | 2022-12-12 13:00 | NUR ---
RN NOTES PATIENT REQUESTED PRN MORPHINE FOR PAIN 06/14. BP LOW, HOWEVER, PATIENT WANTS MEDICATION. RISKS AND BENEFITS EXPLAINED. WILL CONTINUE TO MONITOR.
[2022-12-12] MEDS: IV NS 0.9% 1,000 ML IV SCH (15:28)
[2022-12-12] MEDS: ONDANSETRON HCL/PF 4 MG/2 ML VIAL IVP PRN (15:46)
--- NOTE | 2022-12-12 16:01 | NUR ---
RN NOTES PATIENT COMPLAINED OF HEADACHE, REQUESTED PRN TYLENOL. WILL CONTINUE TO MONITOR. Addendum: 12/12/22 at 1602 by ANTONINO ALL RN ADDENDUM: PATIENT REQUESTED PRN ZOFRAN FOR NAUSEA, NOT PRN TYLENOL. NO EPISODES OF VOMITING WILL CONTINUE TO MONITOR.
--- NOTE | 2022-12-12 19:07 | NUR ---
DIRECTOR GENERAL CLOSING NOTES PATIENT AWAKE IN BED, A/Ox4 ABLE TO MAKE NEEDS KNOWN. ON ROOM AIR, NO S/S OF RESPIRATORY DISTRESS. PATIENT ON TELE MONITORING SHOWING A-FIB HR 66. NO C/O OF CHEST PAIN OR DISCOMFORT. PATIENT AMBULATORY, HAS COLOSTOMY AND USES URINAL. IV ACCESS CATHERINE MIDLINE #18G S/L. SKIN INTACT. SAFETY MEASURES MAINTAINED: BED LOCKED AND IN LOWEST POSITION, SIDE RAILS UPx2, CALL LIGHT WITHIN REACH, HOB ELEVATED. WILL ENDORSE TO NEXT SHIFT ANY RAJINDER.
--- NOTE | 2022-12-12 19:30 | NUR ---
ELECTRONIC PUBLISHER OPENING NOTE RECEIVED PATIENT ON BED, WITH HOB ELEVATED, ALERT AND ORIENTED X4. ABLE TO MAKE NEEDS KNOWN. AFEBRILE AND NOT IN ANY FORM OF ACUTE DISTRESS. BREATHING EVEN AND NON LABORED. ON TELE MONITORING WITH CURRENT READING OF A-FIB 70. WITH IV ACCESS ON CATHERINE MIDLINE 18G RUNNING WITH NS AT 75ML/HR. WITH COLOSTOMY ON R LOWER QUADRANT ABDOMEN. SAFETY MEASURES IN PLACE. KEPT BED IN LOCKED AND IN LOW POSITION. SIDE RAILS UP X2. ADVISED TO USE THE CALL LIGHT WHEN IN NEED OF ASSISTANCE.
[2022-12-12] MEDS: TAMSULOSIN 0.4 MG CAP.SR.24H PO SCH (21:49)
[2022-12-13] MEDS: ONDANSETRON HCL/PF 4 MG/2 ML VIAL IVP PRN (02:39)
[2022-12-13] MEDS: IV NS 0.9% 1,000 ML IV SCH ×2 (04:01→17:10)
[2022-12-13] MEDS: MORPHINE SULFATE INJ 2 MG/ML DISP.SYRIN IV PRN ×5 (06:04→22:38)
--- NOTE | 2022-12-13 06:27 | NUR ---
RADIO ELECTRICIAN CLOSING NOTE PATIENT ON BED, WITH HOB ELEVATED, ASLEEP BUT EASY TO AROUSE AND RESPONSIVE. ALERT AND ORIENTED X4. ABLE TO COMMUNICATE NEEDS WITH THE STAFFS. AFEBRILE AND NOT IN ANY FORM OF ACUTE DISTRESS. BREATHING EVEN AND NON LABORED. ON TELE MONITORING WITH CURRENT READING OF A-FIB 97. WITH IV ACCESS ON CATHERINE MIDLINE 18G RUNNING WITH NS AT 75ML/HR. WITH COLOSTOMY ON R LOWER QUADRANT ABDOMEN. MONITORED FOR ANY S/SX. OF HYPO/HYPERGLYCEMIA. MEDICATED ORDERED. SAFETY MEASURES IN PLACE. KEPT BED IN LOCKED AND IN LOW POSITION. SIDE RAILS UP X2. ADVISED TO USE THE CALL LIGHT WHEN IN NEED OF ASSISTANCE. ALL NURSING NEEDS ATTENDED. ENDORSED TO INCOMING SHIFT FOR CONTINUITY OF CARE.
[2022-12-13] MEDS: BLOOD SUGAR DIAGNOSTIC 1 EACH STRIP IN SCH ×4 (06:33→22:20)
[2022-12-13] MEDS: INSULIN REGULAR, HUMAN 100 UNIT/ML 3 ML VIAL SQ PRN ×4 (06:43→21:42)
[2022-12-13 07:00] VITALS: BP 116/65
--- NOTE | 2022-12-13 07:26 | NUR ---
RN OPENING NOTE RECEIVED PATIENT IN BED AWAKE, A/O X4, VERBALLY RESPONSIVE. NO SIGNS OF ACUTE DISTRESS NOTED. ON ROOM AIR, TOLERATING WELL. BREATHING EVEN AND UNLABORED. NOTED WITH IV ACCESS ON RIGHT UPPER ARM MIDLINE #18G, INTACT AND PATENT RUNNING NS @75ML/HR. COLOSTOMY BAG IN PLACE, NOTED WITH BROWN SOFT STOOL. ON TELE MONITORING SHOWING AFIB, HR @77. DENIES ANY CHEST PAIN. SAFETY MEASURE IN PLACE, BED IN LOW AND LOCKED POSITION, SIDE RAILS UP X2, CALL LIGHT PLACED WITHIN EASY REACH. WILL CONTINUE TO MONITOR PATIENT.
[2022-12-13] MEDS: IPRATROPIUM NEB FS 0.5 MG/2.5 ML AMPUL.NEB IH SCH ×4 (07:35→20:25)
[2022-12-13] MEDS: ALBUTEROL FS 2.5 MG/0.5 ML VIAL.NEB NEB SCH ×4 (07:35→20:25)
[2022-12-13] MEDS: SERTRALINE HCL 50 MG TABLET PO SCH ×2 (08:18→21:04)
[2022-12-13] MEDS: METOPROLOL TARTRATE 25 MG TABLET PO SCH ×2 (08:19→21:00)
[2022-12-13] MEDS: PREGABALIN 25 MG CAPSULE PO SCH ×2 (08:19→16:44)
[2022-12-13] MEDS: PANTOPRAZOLE 40 MG TABLET.DR PO SCH (08:20)
[2022-12-13] MEDS: APIXABAN 5 MG TABLET PO SCH ×2 (08:22→16:45)
--- NOTE | 2022-12-13 10:05 | NUR ---
RN NOTE PATIENT REQUESTED FOR MORPHINE FOR C/O 8/10 ABDOMINAL PAIN, MORPHINE 2MG IVP GIVEN ORDERED. WILL CONTINUE TO MONITOR PATIENT.
[2022-12-13 10:12] LABS: BASOPHILS % (AUTO) 0.3 % (0.0-2.0); EOSINOPHILS % (AUTO) 1.7 % (0.0-6.0); HEMATOCRIT 42 % (39-51); HEMOGLOBIN 13.5 g/dL (13.5-17.5); LYMPHOCYTES # (AUTO) 0.4 K/uL (0.8-4.8); MEAN CORPUSCULAR HGB CONC 32 g/dl (31.0-36.0); MEAN CORPUSCULAR VOLUME 95 fL (80-96); MONOCYTES # (AUTO) 0.6 K/uL (0.1-1.30); MONOCYTES % (AUTO) 6.2 % (2.0-12.0); NEUTROPHILS # (AUTO) 8.4 K/uL (1.8-8.9); NEUTROPHILS % (AUTO) 87.8 % (43.0-81.0); PLATELET COUNT (AUTO) 154 K/uL (150-450); WHITE BLOOD COUNT (AUTO) 9.5 K/uL (4.3-11.0)
[2022-12-13 10:49] LABS: ALBUMIN 3.1 g/dL (3.4-5.0); BILIRUBIN,TOTAL 0.3 mg/dL (0.2-1.0); CALCIUM, SERUM 8.8 mg/dL (8.5-10.1); CREATININE 3.7 mg/dL (0.6-1.3); MAGNESIUM 2.1 mg/dL (1.8-2.4); PHOSPHORUS 4.9 mg/dL (2.5-4.9); POTASSIUM 4.1 mmol/L (3.5-5.1); TOTAL PROTEIN, SERUM 7.5 g/dL (6.4-8.2)
[2022-12-13] MEDS ORDERED: BENZOCAINE DENTAL GEL 7.5% 9.9 GM TUBE MM PRN (12:30)
[2022-12-13] MEDS ORDERED: BENZOCAINE DENTAL GEL 7 GM TUBE MM PRN (12:30)
--- NOTE | 2022-12-13 14:37 | NUR ---
RN NOTE PATIENT REQUESTED FOR MORPHINE FOR C/O 9/10 ABDOMINAL PAIN, MORPHINE 2MG IVP GIVEN ORDERED. WILL CONTINUE TO MONITOR PATIENT.
[2022-12-13 16:00] VITALS: BP 120/75
--- NOTE | 2022-12-13 18:50 | NUR ---
RN CLOSING NOTE PATIENT IN BED AWAKE, A/O X4, VERBALLY RESPONSIVE. NO SIGNS OF ACUTE DISTRESS NOTED. REMAINS STABLE ON ROOM AIR. BREATHING EVEN AND UNLABORED. NOTED WITH IV ACCESS ON RIGHT UPPER ARM MIDLINE #18G, INTACT AND PATENT RUNNING NS @75ML/HR. COLOSTOMY BAG IN PLACE, NOTED WITH BROWN LIQUID STOOL. CONTINUE ON TELE MONITORING SHOWING CONTROLLED AFIB, HR @75. ALL DUE MEDS GIVEN, TOLERATED WELL. SAFETY MEASURE IN PLACE, BED IN LOW AND LOCKED POSITION, SIDE RAILS UP X2, CALL LIGHT PLACED WITHIN EASY REACH. WILL ENDORSE TO NEXT SHIFT FOR CONTINUITY OF CARE.
--- NOTE | 2022-12-13 20:10 | NUR ---
NIGHT MANAGER OPENING NOTES RECEIVED PATIENT ON BED, AWAKE AND COHERENT, ON MODERATE HIGH BACK REST POSITION. ABLE TO VERBALIZED CONCERNS, ON MODERATE. NO S/S OF PAIN OR ANY DISCOMFORT AT THIS TIME. WITH IV ACCESS AT RIGHT ML #18G WITH NS AT 75ML/HR; PATENT AND INTACT. WITH COLOSTOMY BAG ON LLQ NOTED. KEPT BED ON LOWER LOCKED POSITION AND KEPT SIDE RAILS UP X 2 ALL THE TIME. KEPT CALL LIGHT WITHIN REACH. SAFETY MEASURES MAINTAINED. WILL CONTINUE TO MONITOR.
--- NOTE | 2022-12-13 21:01 | NUR ---
Pt refused tx, RN informed
[2022-12-13] MEDS: TAMSULOSIN 0.4 MG CAP.SR.24H PO SCH (22:22)
[2022-12-13] MEDS: ATORVASTATIN 40 MG TABLET PO SCH (22:22)
[2022-12-13 22:28] VITALS: BP 108/81
[2022-12-14] MEDS: MORPHINE SULFATE INJ 2 MG/ML DISP.SYRIN IV PRN ×5 (03:27→23:05)
[2022-12-14] MEDS: IV NS 0.9% 1,000 ML IV SCH ×2 (05:39→17:24)
[2022-12-14] MEDS: INSULIN REGULAR, HUMAN 100 UNIT/ML 3 ML VIAL SQ PRN ×4 (05:41→22:49)
[2022-12-14] MEDS: BLOOD SUGAR DIAGNOSTIC 1 EACH STRIP IN SCH ×4 (06:33→22:47)
--- NOTE | 2022-12-14 06:42 | NUR ---
DRUM PULLER CLOSING NOTES PATIENT IS IN BED, ASLEEP A/O X 4. ON MODERATE HIGH BACKREST POSITION. WITH IV ACCESS AT CATHERINE MIDLINE #18G WITH NS AT 75ML/HR PATENT AND INTACT. WITH COLOSTOMY DRAINED. PATIENT IS ON BEDREST. NO S/S OF PAIN OR ANY DISCOMFORT AT THIS TIME. KEPT BED ON LOWER LOCKED POSITION AND KEPT SIDE RAILS UP X 2 ALL THE TIME. ALL DUE MEDICATIONS AND ALL NEEDS ATTENDED. WILL ENDORSED TO AM SHIFT FOR RAJINDER.
--- NOTE | 2022-12-14 07:15 | NUR ---
STENOTYPE MACHINE OPERATOR OPENING NOTES RECEIVED PATIENT LYING IN BED WITH HOB ELEVATED, AOX3, ABLE TO VERBALIZE NEEDS. ON ROOM AIR WITHOUT ANY DYSPNEA. NO PAIN REPORT DURING THIS TIME. IV ACCESS ON CATHERINE MIDLINE G#18 WITH NS RUNNING AT 75ML/HR; PATENT AND INTACT. WITH COLOSTOMY BAG ON LLQ DRAINING YELLOW LIQUID STOOL. SAFETY MEASURES IN PLACE: BED IN LOWEST AND LOCKED POSITION, SIDE RAILS UP X2, CALL LIGHT AND TRAY TABLE WITHIN REACH. WILL CONTINUE TO MONITOR.
[2022-12-14] MEDS: PANTOPRAZOLE 40 MG TABLET.DR PO SCH (07:25)
[2022-12-14] MEDS: IPRATROPIUM NEB FS 0.5 MG/2.5 ML AMPUL.NEB IH SCH ×3 (07:35→19:30)
[2022-12-14] MEDS: ALBUTEROL FS 2.5 MG/0.5 ML VIAL.NEB NEB SCH ×3 (07:35→19:30)
--- NOTE | 2022-12-14 07:45 | NUR ---
RN NOTES PATIENT REQUEST FOR PAIN MEDICATION - REPORT OF 9/10 PAIN GENERALIZED BACK AND ABDOMEN, GIVEN MORPHINE 2 MG VIA IV. PATIENT REFUSED AM CARE. DOESNT WANT TO HAVE COLOSTOMY CHANGED.
[2022-12-14 08:00] VITALS: BP 118/66
[2022-12-14] MEDS: PREGABALIN 25 MG CAPSULE PO SCH ×2 (08:50→17:31)
[2022-12-14] MEDS: SERTRALINE HCL 50 MG TABLET PO SCH ×2 (08:50→21:52)
[2022-12-14] MEDS: METOPROLOL TARTRATE 25 MG TABLET PO SCH ×2 (08:52→21:52)
[2022-12-14] MEDS: APIXABAN 5 MG TABLET PO SCH ×2 (08:56→17:31)
[2022-12-14 09:10] LABS: ALBUMIN 2.8 g/dL (3.4-5.0); BILIRUBIN,TOTAL 0.4 mg/dL (0.2-1.0); CALCIUM, SERUM 8.5 mg/dL (8.5-10.1); CREATININE 2.6 mg/dL (0.6-1.3); POTASSIUM 4.4 mmol/L (3.5-5.1); TOTAL PROTEIN, SERUM 6.9 g/dL (6.4-8.2)
--- NOTE | 2022-12-14 11:45 | NUR ---
RN NOTES - PT COMPLAINING OF 8-9/10 PAIN IN THE BACK, DUE MORPHINE GIVEN 2MG VIA IV. WILL CHECK FOR EFFECTIVENESS.
[2022-12-14 12:00] VITALS: BP 134/73
--- NOTE | 2022-12-14 14:00 | NUR ---
RN NOTES - PT REFUSED PM CARE DESPITE ENCOURAGEMENT.
[2022-12-14 16:00] VITALS: BP 118/66
--- NOTE | 2022-12-14 18:00 | NUR ---
RN NOTES - PATIENT COMPLAINING OF 8/10 BACK PAIN - GIVEN DUE MORPHINE 2 MG VIA IV. WILL CONTINUE TO MONITOR.
--- NOTE | 2022-12-14 18:40 | NUR ---
BLUE LINE OPERATOR CLOSING NOTES PATIENT LYING IN BED WITH HOB ELEVATED, AOX3, ABLE TO VERBALIZE NEEDS. STILL ON ROOM AIR WITHOUT ANY DYSPNEA. NO PAIN REPORT DURING THIS TIME. STILL WITH INTACT IV ACCESS ON CATHERINE MIDLINE G#18 WITH NS RUNNING AT 75ML/HR. TELE MONITORING SHOWS AFIB WITH 67 HR. WITH COLOSTOMY BAG ON LLQ DRAINING YELLOW LIQUID STOOL. I/O TAKEN RECORDED. PATIENT REFUSED ALL HYGIENE CARE THROUGHOUT MY SHIFT DESPITE ENCOURAGEMENT. ALL DUE MEDS GIVEN. ALL NEEDS MET. SAFETY MEASURES MAINTAINED: BED IN LOWEST AND LOCKED POSITION, SIDE RAILS UP X2, CALL LIGHT AND TRAY TABLE WITHIN REACH. WILL ENDORSE TO DISBURSING OFFICER NURSE.
[2022-12-14 20:00] VITALS: BP 135/60
--- NOTE | 2022-12-14 20:17 | NUR ---
SUPERVISOR DIALS OPENING NOTE PATIENT SLEEPING IN BED, EASILY AWAKENED, PT ALERT/ORIENTED X 4, PT ABLE TO MAKE NEEDS KNOWN. PATIENT STABLE ON RA, NO S/S OF DISTRESS OR SOB NOTED, BREATHING EVEN AND UNLABORED. PATIENT ON EXTERNAL TENTER READING CONTROLLED A. FIB, HR: 68. CATHERINE ML INTACT AND INFUSING NS @ 75 ML/HR. COLOSTOMY BAG IN PLACE. SAFETY MEASURES IN PLACE: CALL LIGHT WITHIN REACH, SIDE RAILS UP X 3, BED LOCKED IN LOWEST POSITION, BED ALARM ON. WILL CONTINUE TO MONITOR PATIENT
[2022-12-14] MEDS: ATORVASTATIN 40 MG TABLET PO SCH (21:52)
[2022-12-14] MEDS: TAMSULOSIN 0.4 MG CAP.SR.24H PO SCH (21:52)
[2022-12-15] MEDS: MORPHINE SULFATE INJ 2 MG/ML DISP.SYRIN IV PRN ×5 (03:29→16:55)
[2022-12-15] MEDS: BLOOD SUGAR DIAGNOSTIC 1 EACH STRIP IN SCH ×3 (06:58→16:44)
[2022-12-15] MEDS: INSULIN REGULAR, HUMAN 100 UNIT/ML 3 ML VIAL SQ PRN ×2 (07:01→16:49)
[2022-12-15] MEDS: IV NS 0.9% 1,000 ML IV SCH (07:06)
--- NOTE | 2022-12-15 07:15 | NUR ---
MINE PATROL OPENING NOTES RECEIVED PATIENT LYING IN BED WITH HOB ELEVATED, AOX3-4, ABLE TO VERBALIZE NEEDS. ON ROOM AIR WITHOUT ANY DYSPNEA. NO PAIN REPORT DURING THIS TIME. IV ACCESS ON CATHERINE MIDLINE G#18 WITH NS RUNNING AT 75ML/HR; PATENT AND INTACT. WITH COLOSTOMY BAG ON LLQ DRAINING YELLOW LIQUID STOOL. SAFETY MEASURES IN PLACE: BED IN LOWEST AND LOCKED POSITION, SIDE RAILS UP X2, CALL LIGHT AND TRAY TABLE WITHIN REACH. WILL CONTINUE TO MONITOR. Addendum: 12/15/22 at 1031 by CAT BROWN RN TELEMONITORING IS SHOWING AFIB CONTROLLED WITH HR OF 76
[2022-12-15 07:19] LABS: ALBUMIN 2.7 g/dL (3.4-5.0); BILIRUBIN,TOTAL 0.3 mg/dL (0.2-1.0); CALCIUM, SERUM 8.7 mg/dL (8.5-10.1); CREATININE 2.2 mg/dL (0.6-1.3); POTASSIUM 5.1 mmol/L (3.5-5.1); TOTAL PROTEIN, SERUM 6.8 g/dL (6.4-8.2)
[2022-12-15] MEDS: ALBUTEROL FS 2.5 MG/0.5 ML VIAL.NEB NEB SCH ×2 (07:35→13:30)
[2022-12-15] MEDS: IPRATROPIUM NEB FS 0.5 MG/2.5 ML AMPUL.NEB IH SCH ×2 (07:35→13:30)
--- NOTE | 2022-12-15 07:36 | NUR ---
ORACLE BUSINESS ANALYST CLOSING NOTE PATIENT AWAKE IN BED, PT ALERT/ORIENTED X 4, PT ABLE TO MAKE NEEDS KNOWN. PATIENT STABLE ON RA, NO S/S OF DISTRESS OR SOB NOTED, BREATHING EVEN AND UNLABORED. PATIENT ON EXTERNAL OBSTETRICAL ANESTHESIOLOGIST READING CONTROLLED A. FIB, HR: 70. CATHERINE ML INTACT AND INFUSING NS @ 75 ML/HR. COLOSTOMY BAG IN PLACE. PATIENT CONTINUES TO REFUSE HYGIENE CARE AND LINEN CHANGE. MEDICATIONS GIVEN ORDERED, PT NEEDS MET THROUGHOUT SHIFT. SAFETY MEASURES IN PLACE: CALL LIGHT WITHIN REACH, SIDE RAILS UP X 3, BED LOCKED IN LOWEST POSITION, BED ALARM ON. ENDORSED TO DAYSHIFT RN FOR CONTINUITY OF CARE
[2022-12-15 08:00] VITALS: BP 118/66
--- NOTE | 2022-12-15 08:00 | NUR ---
RN NOTES - PT REFUSED AM CARE DESPITE ENCOURAGEMENT, DIDN'T WANT LINEN, KEEPS SAYING "MAYBE LATER" MD IS AWARE.
[2022-12-15] MEDS: PANTOPRAZOLE 40 MG TABLET.DR PO SCH (08:03)
--- NOTE | 2022-12-15 08:04 | NUR ---
RT NOTE Pt refused neb Tx at this time. I explained to the Pt that they may ask for their neb Tx and that I would come back to give it to them if they change their mind. No resp distress or SOB noted.
[2022-12-15] MEDS: PREGABALIN 25 MG CAPSULE PO SCH ×2 (08:45→16:17)
--- NOTE | 2022-12-15 08:45 | NUR ---
RN NOTES - PATIENT CALLED FOR PAIN MEDICATION - COMPLAINING OF 9/10 PAIN IN THE BACK - GIVEN MORPHINE 2 MG IV, WILL CONTINUE TO MONITOR.
[2022-12-15] MEDS: SERTRALINE HCL 50 MG TABLET PO SCH (08:46)
[2022-12-15] MEDS: METOPROLOL TARTRATE 25 MG TABLET PO SCH (08:46)
[2022-12-15] MEDS: APIXABAN 5 MG TABLET PO SCH ×2 (08:47→16:19)
[2022-12-15] MEDS ORDERED: CIPR500T5 PO (10:59)
[2022-12-15] MEDS ORDERED: ATOR40TA PO (10:59)
[2022-12-15 12:00] VITALS: BP 110/70
--- NOTE | 2022-12-15 12:35 | NUR ---
RN NOTES - COMPLAINTS OF 8/10 PAIN IN THE BACK/ABDOMEN - GIVEN MORPHINE 2 MG IV, WILL CONTINUE TO MONITOR.
--- NOTE | 2022-12-15 14:30 | NUR ---
RN NOTES - RECEIVED A CALL FROM JENNY THAT DR MAGDALENO CLEARED THE PATIENT AND PT FOR OUTSIDE CUTTER AT 1800.
[2022-12-15 16:00] VITALS: BP 118/74
[2022-12-15] MEDS: ONDANSETRON HCL/PF 4 MG/2 ML VIAL IVP PRN (16:17)
--- NOTE | 2022-12-15 18:19 | NUR ---
OIL HEATER OPERATORCERTIFIED WELLNESS PROGRAM COORDINATOR NOTE PT DISCHARGED TO HOME IN STABLE CONDITION. PT AOX4, ABLE TO VERBALIZED NEEDS. ON ROOM AIR WITHOUT DIFFICULTY. NOT IN ANY FORM OF DISTRESS. DENIES PAIN NOR DISCOMFORT AT THE MOMENT. LAST TELEMONITORING READING WAS AFIB CONTROLLED WITH 76 HR. VS TAKEN, STABLE, RECORDED. SKIN IS INTACT, CHANGED COLOSTOMY BAG ON LLQ. PATIENT AGREED TO BE CLEANED THIS TIME. IV ACCESS BARBARA MIDLINE REMOVED NO BLEEDING NOTED. BELONGINGS ACCOUNTED FOR AND FORM WAS SIGNED. DISCHARGE INSTRUCTIONS GIVEN TO PT AND REITERATED FOLLOW UP VISIT ON 12/20 @[address] BROWN AND TO VISIT MACHINE HAMPER MAKER IN 1 WEEK. PT LEFT THE UNIT AT 1815 VIA GURNEY ACCOMPANIED BY 2 DONOR SERVICES SPECIALIST. MD AND CHARGE NURSE AWARE OF THE DISCHARGE.
== END 2022-12-15 18:33 | disposition home health service (06) | DRG 683 ==
LOC: ER 07:56 → TELE 11:52
PROVIDERS: ADMIT Internal Medicine; ATTEND Student in an Organized Health Care Education/Training Program
PROC: 05HD33Z Insertion of Infusion Device into Right Cephalic Vein, Percutaneous Approach (ICD-10-PCS; principal; 2022-12-11)
DX: N17.0 Acute kidney failure with tubular necrosis (principal); E87.1 Hypo-osmolality and hyponatremia; I13.0 Hypertensive heart and chronic kidney disease with heart failure and stage 1 through stage 4 chronic kidney disease, or unspecified chronic kidney disease; E87.20 Acidosis, unspecified; I50.32 Chronic diastolic (congestive) heart failure; Z68.41 Body mass index [BMI] 40.0-44.9, adult; N18.9 Chronic kidney disease, unspecified; Z20.822 Contact with and (suspected) exposure to COVID-19; E11.22 Type 2 diabetes mellitus with diabetic chronic kidney disease; E11.40 Type 2 diabetes mellitus with diabetic neuropathy, unspecified; Z93.3 Colostomy status; Z90.49 Acquired absence of other specified parts of digestive tract; Z79.51 Long term (current) use of inhaled steroids; Z79.01 Long term (current) use of anticoagulants; Z79.899 Other long term (current) drug therapy; K58.9 Irritable bowel syndrome, unspecified; E86.1 Hypovolemia; E87.8 Other disorders of electrolyte and fluid balance, not elsewhere classified; J44.9 Chronic obstructive pulmonary disease, unspecified; I48.91 Unspecified atrial fibrillation; E66.9 Obesity, unspecified
CPT/HCPCS: 36415; 71045-TC; 76770-TC; 80048-TC; 80053-TC; 80076-TC; 82962-TC; 83605-TC; 83735-TC; 83880; 84100-TC; 84484-TC; 85025-TC; 85730-TC; 87040-TC; 87081-TC; 87086-TC; C9803; G0378; J1815; J2270; J2405; J7030

== ENCOUNTER 2023-02-12 15:38 | Inpatient (IN) | payer MEDICARE, OTHER ==
[~2023-02-12] VITALS: Ht 182.9 cm; Wt 151.0 kg
[~2023-02-12 15:38] MED LIST changes: -ALLO300T2 PO; +ATOR40TA PO; +CIPR500T5 PO; -Linezolid PO; -MERO500P IV; +PANT40TA49 PO; +ZOLP5TAB8 PO
--- NOTE | 2023-02-12 15:50 | NUR ---
BIB RA [facility] FROM HOME, WORSENING LOWER EXTREMITY EDEMA,MORE ON THE LEFT X 1 WEEK
--- NOTE | 2023-02-12 16:26 | NUR ---
TO ER 15, NO APPARENT CHANGE IN CONDITION
[2023-02-12 16:58] LABS: BASOPHILS % (AUTO) 0.4 % (0.0-2.0); EOSINOPHILS % (AUTO) 1.9 % (0.0-6.0); HEMATOCRIT 27 % (39-51); HEMOGLOBIN 8.9 g/dL (13.5-17.5); LYMPHOCYTES # (AUTO) 0.7 K/uL (0.8-4.8); LYMPHOCYTES % (AUTO) 9.2 % (20.0-44.0); MEAN CORPUSCULAR HGB CONC 33 g/dl (31.0-36.0); MEAN CORPUSCULAR VOLUME 97 fL (80-96); MONOCYTES # (AUTO) 0.9 K/uL (0.1-1.30); MONOCYTES % (AUTO) 12.8 % (2.0-12.0); NEUTROPHILS # (AUTO) 5.5 K/uL (1.8-8.9); NEUTROPHILS % (AUTO) 75.7 % (43.0-81.0); PLATELET COUNT (AUTO) 199 K/uL (150-450); WHITE BLOOD COUNT (AUTO) 7.3 K/uL (4.3-11.0)
[2023-02-12] MEDS ORDERED: ASPIRIN 325 MG TABLET PO ONE (17:00)
[2023-02-12] MEDS ORDERED: FUROSEMIDE 20 MG/2 ML VIAL IV ONE (17:00)
[2023-02-12] MEDS ORDERED: ONDANSETRON HCL/PF - ER 4 MG/2 ML VIAL IV ONE (17:00)
--- NOTE | 2023-02-12 17:25 | NUR ---
called nursing sup eduardin gpt bed
[2023-02-12] MEDS ORDERED: ASPIRIN 325 MG TABLET ONE (17:40)
[2023-02-12] MEDS ORDERED: ONDANSETRON HCL/PF 4 MG/2 ML VIAL ONE (17:40)
[2023-02-12] MEDS ORDERED: FUROSEMIDE 20 MG/2 ML VIAL ONE (17:40)
[2023-02-12 17:46] LABS: CALCIUM, SERUM 9.2 mg/dL (8.5-10.1); CARBON DIOXIDE 29 mmol/L (21-32); CHLORIDE 104 mmol/L (98-107); CREATININE 1.9 mg/dL (0.6-1.3); GLUCOSE 108 mg/dL (74-106); POTASSIUM 4.1 mmol/L (3.5-5.1); SODIUM SERUM 139 mmol/L (136-145); UREA NITROGEN, BLOOD 25 mg/dL (7-18)
[2023-02-12 17:51] LABS: ALANINE AMINOTRANSFERASE 18 U/L (12-78); ALKALINE PHOSPHATASE 65 U/L (46-116); ASPARTATE AMINOTRANSFERASE 18 U/L (15-37); BILIRUBIN,DIRECT 0.2 mg/dL (0.0-0.2); BILIRUBIN,TOTAL 0.7 mg/dL (0.2-1.0); TOTAL PROTEIN, SERUM 7.2 g/dL (6.4-8.2)
[2023-02-12] MEDS ORDERED: LORAZEPAM 1 MG TABLET PO PRN (18:30)
[2023-02-12] MEDS ORDERED: DEXTROSE 50%-WATER 50 ML DISP.SYRIN IV PRN (18:30)
[2023-02-12] MEDS ORDERED: TAMSULOSIN 0.4 MG CAP.SR.24H PO ONE (18:30)
[2023-02-12] MEDS ORDERED: ONDANSETRON HCL/PF 4 MG/2 ML VIAL IVP PRN (18:30)
[2023-02-12] MEDS ORDERED: ACETAMINOPHEN 325 MG TABLET PO PRN (18:30)
[2023-02-12] MEDS ORDERED: MAGNESIUM HYDROXIDE 30 ML UDC PO PRN (18:30)
[2023-02-12] MEDS ORDERED: HYDROCODONE/APAP 5/325MG TABLET PO PRN (18:30)
[2023-02-12] MEDS ORDERED: MAG HYDROX/AL HYDROX/SIMETH 30 ML UDC PO PRN (18:30)
[2023-02-12] MEDS ORDERED: Z GUARD REMEDY 4 OZ OINT TP PRN (18:30)
--- NOTE | 2023-02-12 18:49 | NUR ---
room 306-1 after shift change
--- NOTE | 2023-02-12 19:16 | NUR ---
CONTACTED NURSING TRANSPORT COORDINATOR FOR MIDLINE.
--- NOTE | 2023-02-12 19:42 | NUR ---
CANDIS BETHEA COLLECTED AND SENT TO LAB.
--- NOTE | 2023-02-12 21:23 | NUR ---
REPORT GIVEN TO RUY YBARRA ROOM 306-1 FOR RAJINDER
--- NOTE | 2023-02-12 21:38 | NUR ---
24G IV STARTED ON CATHERINE / R SHOULDER WITH GOOD BLOOD DRAW
[2023-02-12] MEDS ORDERED: METOPROLOL TARTRATE 25 MG TABLET ONE (21:47)
[2023-02-12] MEDS ORDERED: TAMSULOSIN 0.4 MG CAP.SR.24H ONE (21:48)
--- NOTE | 2023-02-12 22:19 | NUR ---
patient transfered and admitted per acls protocol
--- NOTE | 2023-02-12 22:20 | NUR ---
RN NOTES; RECEIVED PATIENT FROM ER WITH MARIA FERNANDA IN RM 306-1 AAOX4 ABLE TO MAKE NEEDS KNOWN,ON RM AIR SANDRA WELL SAT 97.6%,NO SIGN SOB/DISTRESS NOTED,IV ACCESS ON RIGHT SHOULDER 24G PATENT AND INTACT,PT WAS ORIENT THE RM AND VERBALLY RESPONSIVE,INITIAL ASSESSMENT DONE,BELONGING COUNT.KEPT PT CLEANED AND DRY AT ALL TIME,SAFETY MEASURE IN PLACE,CALL LIGHT WITHIN REACH,WILL CONTINUE TO MONITOR.
[2023-02-12 22:50] VITALS: BP 107/61
[2023-02-12] MEDS: ATORVASTATIN 40 MG TABLET PO SCH (23:16)
[2023-02-12] MEDS: BLOOD SUGAR DIAGNOSTIC 1 EACH STRIP IN SCH (23:29)
[2023-02-12] MEDS: METOPROLOL TARTRATE 25 MG TABLET PO SCH (23:58)
[2023-02-13 04:00] VITALS: BP 132/58
[2023-02-13 05:49] LABS: BASOPHILS % (AUTO) 0.5 % (0.0-2.0); EOSINOPHILS % (AUTO) 2.9 % (0.0-6.0); HEMATOCRIT 28 % (39-51); HEMOGLOBIN 8.8 g/dL (13.5-17.5); LYMPHOCYTES # (AUTO) 0.8 K/uL (0.8-4.8); LYMPHOCYTES % (AUTO) 10.8 % (20.0-44.0); MEAN CORPUSCULAR HGB CONC 32 g/dl (31.0-36.0); MEAN CORPUSCULAR VOLUME 99 fL (80-96); MONOCYTES # (AUTO) 1.1 K/uL (0.1-1.30); MONOCYTES % (AUTO) 15.8 % (2.0-12.0); PLATELET COUNT (AUTO) 182 K/uL (150-450); RED BLOOD CELL COUNT(AUTO) 2.78 MIL/uL (4.5-6.0); WHITE BLOOD COUNT (AUTO) 7.1 K/uL (4.3-11.0)
--- NOTE | 2023-02-13 05:52 | NUR ---
RN NOTES; PATIENT COMPLAINED OF ABDOMINAL PAIN 05/14.PRN NORCO 5-325MG WAS GIVEN.NO A/R NOTED.
[2023-02-13 05:58] LABS: CREATININE 1.9 mg/dL (0.6-1.3); MAGNESIUM 1.6 mg/dL (1.8-2.4); PHOSPHORUS 3.6 mg/dL (2.5-4.9); POTASSIUM 3.5 mmol/L (3.5-5.1)
[2023-02-13] MEDS: BLOOD SUGAR DIAGNOSTIC 1 EACH STRIP IN SCH ×4 (06:04→22:05)
--- NOTE | 2023-02-13 06:09 | NUR ---
RN CLOSING NOTES; PATIENT IN BED AWAKED AOX4 ABLE TO MAKE NEEDS KNOWN,ON RM AIR SANDRA WELL SAT 96%,NO SIGN SOB/DISTRESS NOTED,IV ACCESS ON RIGHT SHOULDER 24G SL PATENT AND INTACT,DUE MEDS GIVEN ORDER,LEFT LOWER ABDOMEN COLOSTOMY,STOMA PINK IN COLOR.ALL NEEDS ATTENDED,KEPT PT CLEANED AND DRY AT ALL TIME,SAFETY MEASURE IN PLACE,CALL LIGHT WITHIN REACH,WILL ENDORSED TO NEXT SHIFT.
[2023-02-13] MEDS: PANTOPRAZOLE 40 MG TABLET.DR PO SCH (07:46)
[2023-02-13 08:00] VITALS: BP 121/77
[2023-02-13] MEDS: FUROSEMIDE 40 MG/4 ML VIAL IV SCH (08:03)
[2023-02-13] MEDS: PREGABALIN 25 MG CAPSULE PO SCH ×2 (08:03→16:37)
[2023-02-13] MEDS: METOPROLOL TARTRATE 25 MG TABLET PO SCH ×2 (08:04→22:04)
[2023-02-13] MEDS: SERTRALINE HCL 50 MG TABLET PO SCH (08:04)
[2023-02-13] MEDS: APIXABAN 5 MG TABLET PO SCH ×2 (08:05→16:38)
--- NOTE | 2023-02-13 08:42 | NUR ---
WOUND CARE CONSULT: PT PRESENTS WITH OPEN ABDOMINAL WOUND, RASH TO ABDOMINAL/GROIN FOLDS AND LOWER EXTREMITY EDEMA, ESPECIALLY LEFT LOWER LEG, PRESENT ON ADMISSION. PT HAS OSTOMY WHICH LEAKS AT TIME PER PT REPORT. POUCH IS PATENT AT THIS TIME. PT DENIES NEED FOR BARIATRIC BED. PT ABLE TO ASSIST WITH TURNING AND REPOSITIONING IN BED. SURGICAL CONSULT REQUESTED. MD IN AGREEMENT WITH PLAN OF CARE. Addendum: 02/13/23 at 0856 by JASON MILLER WNDNU SURGICAL CONSULT CALLED TO DR JULIA ARMANDO.
[2023-02-13 08:52] LABS: THYROID STIMULATING HORMONE 1.393 uIU/mL (0.358-3.74)
[2023-02-13] MEDS: MORPHINE SULFATE INJ 4 MG/ML DISP.SYRIN IV PRN ×4 (08:59→22:04)
[2023-02-13] MEDS: CLOTRIMAZOLE 1% 15 GM TUBE TP SCH ×2 (11:03→16:37)
[2023-02-13] MEDS: SILVER SULFADIAZINE CREAM 25 GM TUBE TP SCH (11:04)
[2023-02-13] MEDS ORDERED: MAGNESIUM OXIDE 400 MG TABLET PO ONE (11:30)
[2023-02-13 12:00] VITALS: BP 117/54
[2023-02-13] MEDS ORDERED: NEOM10DR11 LEFT EAR (13:26)
[2023-02-13] MEDS ORDERED: ATOR40TA PO (13:29)
[2023-02-13 16:00] VITALS: BP 130/71
--- NOTE | 2023-02-13 18:10 | NUR ---
END OF SHIFT SUMMARY PATIENT IS A/O X3-4. SATURATING WELL ON RA. ABLE TO MAKE NEEDS KNOWN. SR/AFIB CONTROLLED ON TELE. ELIQUIS FOR VTE. COLOSTOMY IN PLACE, PATIENT EMPTIES HIS OWN BAG. CONTINENT, USES URINAL. WOUND CARE DONE ORDERED. IV ACCESS ON CATHERINE #24 G, INTACT AND PATENT. PAIN MANAGED WITH MORPHINE. URINE SPECIMEN COLLECTED AND SENT TO LAB. ABLE TO REPOSITION HIMSELF INDEPENDENTLY. SAFETY MEASURES MAINTAINED. BED IN LOWEST POSITION, BRAKES LOCKED. SIDE RAILS UP X2. CALL LIGHT WITHIN REACH. WILL ENDORSE CONTINUITY OF CARE TO ONCOMING SHIFT.
[2023-02-13 18:29] LABS: BILIRUBIN,URINE NEGATIVE (NEGATIVE); LEUKOCYTE ESTERASE ,URINE NEGATIVE (NEGATIVE); NITRITE, URINE NEGATIVE (NEGATIVE); PH,URINE 5.5 (5.0-8.0); PROTEIN,URINE NEGATIVE (NEGATIVE); UGLUCOSE NEGATIVE (NEGATIVE); UROBILINOGEN,URINE 0.2 EU/dL (0.2)
[2023-02-13 18:40] LABS: CREATININE, URINE 27.5 MG/DL (30.0-125.0)
[2023-02-13 18:42] LABS: COLOR,URINE LIGHT YELLOW (YELLOW)
--- NOTE | 2023-02-13 19:50 | NUR ---
DRILL OPERATOR PNEUMATIC OPENING NOTES RECEIVED PATIENT IN BED AWAKE, ALERT AND ORIENTED. A/O X 4. ON ROOM AIR, BREATHING EVEN AND UNLABORED, NO SIGN SOB/DISTRESS NOTED. IV ACCESS ON RIGHT SHOULDER #24G PATENT AND INTACT. PATIENT ON TELE MONITOR WITH CURRENT READING OF SR AFIB CONTROLLED. COLOSTOMY IN PLACE. WILL MAINTAIN SAFETY MEASURES WITH BED IN LOWEST LOCKED POSITION. BED ALARM ON. CALL LIGHT AND TRAY WITHIN EASY REACH. WILL CONTINUE WITH THE PLAN OF CARE.
[2023-02-13 20:00] VITALS: BP 137/89
[2023-02-13 20:26] VITALS: BP 137/89
--- NOTE | 2023-02-13 21:40 | NUR ---
RN NOTES-MIDLINE DONE ORDERED MIDLINE INSERTION FOR THE PATIENT. DR. THORNTON DID THE INSERTION @ CATHERINE #20G, INTACT, PATENT AND FLUSHING WELL.
[2023-02-13] MEDS: ATORVASTATIN 40 MG TABLET PO SCH (22:04)
--- NOTE | 2023-02-13 22:04 | NUR ---
TATE NOTES-MORPHINE GIVEN PATIENT C/O OF ABDOMINAL PAIN WITH A SCALE OF 8/10. MORPHINE 2MG IV GIVEN PRN. WILL CONTINUE TO MONITOR THE PATIENT. Addendum: 02/14/23 at 0245 by DELMI MILES RN MORPHINE 4MG IV GIVEN PRN.
[2023-02-14 01:01] VITALS: BP 140/72
[2023-02-14] MEDS: MORPHINE SULFATE INJ 4 MG/ML DISP.SYRIN IV PRN ×5 (02:22→22:33)
--- NOTE | 2023-02-14 02:22 | NUR ---
RN NOTES-MORPHINE IV GIVEN PATIENT C/O OF ABDOMINAL PAIN WITH A SCALE OF 8/10. MORPHINE 4MG IV GIVEN PRN Q4. WILL CONTINUE TO MONITOR THE PATIENT.
[2023-02-14 04:25] VITALS: BP 121/66
[2023-02-14] MEDS: BLOOD SUGAR DIAGNOSTIC 1 EACH STRIP IN SCH ×4 (06:47→21:20)
[2023-02-14] MEDS: INSULIN REGULAR, HUMAN 100 UNIT/ML 3 ML VIAL SQ PRN ×3 (06:48→16:51)
[2023-02-14] MEDS: PANTOPRAZOLE 40 MG TABLET.DR PO SCH (07:29)
--- NOTE | 2023-02-14 07:29 | NUR ---
MANAGER OF CREATIVE SERVICES CLOSING NOTES PATIENT IN BED ASLEEP. EASILY AWAKEN BY VERBAL STIMULI. A/O X 4. ON ROOM AIR, BREATHING EVEN AND UNLABORED, NO SIGN SOB/DISTRESS NOTED. IV ACCESS ON RIGHT SHOULDER #24G AND MIDLINE @ CATHERINE #20G BOTH ON SALINE LOCK, PATENT AND INTACT. PATIENT ON TELE MONITOR WITH CURRENT READING OF AFIB @ 69. COLOSTOMY IN PLACE. WILL MAINTAIN SAFETY MEASURES WITH BED IN LOWEST LOCKED POSITION. BED ALARM ON. CALL LIGHT AND TRAY WITHIN EASY REACH. WILL ENDORSE TO THE NEXT SHIFT.
--- NOTE | 2023-02-14 07:45 | NUR ---
MANAGER PLANT OPENING NOTES RECEIVED PATIENT AWAKE IN BED. A/O X 4. ON ROOM AIR, BREATHING EVEN AND UNLABORED, NO SIGNS OF SOB/DISTRESS NOTED. IV ACCESS ON RIGHT SHOULDER #24G SL and on CATHERINE #20G SL. PATIENT ON TELE MONITOR WITH CURRENT READING OF SR AFIB HR69, CONTROLLED. COLOSTOMY IN PLACE. WILL MAINTAIN SAFETY MEASURES WITH BED IN LOWEST LOCKED POSITION. BED ALARM ON. CALL LIGHT AND TRAY WITHIN EASY REACH. WILL CONTINUE TO MONITOR PATIENT.
[2023-02-14] MEDS: FUROSEMIDE 40 MG/4 ML VIAL IV SCH (08:13)
[2023-02-14] MEDS: SERTRALINE HCL 50 MG TABLET PO SCH (08:13)
[2023-02-14 08:14] VITALS: BP 137/65
[2023-02-14] MEDS: APIXABAN 5 MG TABLET PO SCH ×2 (08:15→16:16)
[2023-02-14] MEDS: METOPROLOL TARTRATE 25 MG TABLET PO SCH ×2 (08:15→20:52)
[2023-02-14] MEDS: PREGABALIN 25 MG CAPSULE PO SCH ×2 (08:19→16:15)
[2023-02-14] MEDS: PROSOURCE / PROSTAT (PYXIS) 30 ML UDC GT SCH (08:21)
[2023-02-14] MEDS: CLOTRIMAZOLE 1% 15 GM TUBE TP SCH ×2 (08:30→16:18)
[2023-02-14] MEDS: SILVER SULFADIAZINE CREAM 25 GM TUBE TP SCH (08:31)
--- NOTE | 2023-02-14 11:40 | NUR ---
DOCUMENT PREPARER MICROFILMING NOTES PATIENT C/O OF ABDOMINAL PAIN AND GENERALIZE PAIN WITH A SCALE OF 7/10. MORPHINE 4MG IV GIVEN PRN. WILL CONTINUE TO MONITOR THE PATIENT.
[2023-02-14 12:26] VITALS: BP 129/67
[2023-02-14] MEDS: SOD FERRIC GLUC 125 MG in IV NS 0.9% 100 ML IV SCH (14:21)
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
[2023-02-14 15:34] LABS: BASOPHILS % (AUTO) 0.3 % (0.0-2.0); EOSINOPHILS % (AUTO) 5.5 % (0.0-6.0); HEMATOCRIT 29 % (39-51); HEMOGLOBIN 9.2 g/dL (13.5-17.5); LYMPHOCYTES # (AUTO) 0.5 K/uL (0.8-4.8); LYMPHOCYTES % (AUTO) 8.1 % (20.0-44.0); MEAN CORPUSCULAR HGB CONC 32 g/dl (31.0-36.0); MEAN CORPUSCULAR VOLUME 99 fL (80-96); MONOCYTES # (AUTO) 0.8 K/uL (0.1-1.30); MONOCYTES % (AUTO) 12.3 % (2.0-12.0); NEUTROPHILS # (AUTO) 4.8 K/uL (1.8-8.9); NEUTROPHILS % (AUTO) 73.8 % (43.0-81.0); PLATELET COUNT (AUTO) 217 K/uL (150-450); WHITE BLOOD COUNT (AUTO) 6.5 K/uL (4.3-11.0)
[2023-02-14 15:51] LABS: CALCIUM, SERUM 8.2 mg/dL (8.5-10.1); CREATININE 1.5 mg/dL (0.6-1.3); MAGNESIUM 1.4 mg/dL (1.8-2.4); POTASSIUM 4.2 mmol/L (3.5-5.1)
[2023-02-14 16:15] VITALS: BP 112/63
[2023-02-14] MEDS ORDERED: Magnesium 1GM/D5W 100ML PREMIX 100 ML IV SCH (16:30)
--- NOTE | 2023-02-14 16:54 | NUR ---
RN NOTES DR. JOSHUA MADE AWARE THAT PATIENT MAGNESIUM IS LOW 1.4. HE ORDERED MAGNESIUM IV 1 GM. GIVEN TO PATIENT AT 1636. WILL CONTINUE TO MONITOR PATIENT.
--- NOTE | 2023-02-14 18:45 | NUR ---
COST AND SALES RECORD SUPERVISOR CLOSING NOTES PATIENT IN BED AWAKE AND WATCHING TV.A/O X 4. ON ROOM AIR, BREATHING EVEN AND UNLABORED, NO SIGN SOB/DISTRESS NOTED. NO C/O OF PAIN RIGHT NOW, IV ACCESS ON RIGHT SHOULDER #24G AND MIDLINE @ CATHERINE #20G BOTH ON SALINE LOCK, PATENT AND INTACT. PATIENT ON TELE MONITOR WITH CURRENT READING OF AFIB @ 77. BILATERAL INGUINAL REDNESS, APPLIED SOME SILVADENE, ABDOMINAL REDNESS APPLIED SOME COTRIMAZOLE. COLOSTOMY IN PLACE. WILL MAINTAIN SAFETY MEASURES WITH BED IN LOWEST LOCKED POSITION. BED ALARM ON. CALL LIGHT AND TRAY WITHIN EASY REACH. WILL ENDORSE TO THE HEAD STOCK OPERATOR NURSE FOR RAJINDER
[2023-02-14 20:00] VITALS: BP 126/62
--- NOTE | 2023-02-14 20:27 | NUR ---
alert /orientated x4 asking sor radha crackers juice milk and a ham sandwitch watching tv room air afib on the monitor controlled hr 90
[2023-02-14] MEDS: ATORVASTATIN 40 MG TABLET PO SCH (21:21)
[2023-02-15] VITALS (7 sets, daily range): BP systolic 102–164; BP diastolic 50–80
[2023-02-15] MEDS: MORPHINE SULFATE INJ 4 MG/ML DISP.SYRIN IV PRN ×6 (02:48→23:00)
--- NOTE | 2023-02-15 05:31 | NUR ---
Closing Notes: alert and orientated X4 moves about in the bed independently left leg red and hot to touch swollen 2+ medicated x3 Q4 hours with Morphine 4 mg for c/o pain right and left hip and his ABD. colostomy output 2300ml weight [id number] lbs he is pleasant and cooperative
[2023-02-15] MEDS: BLOOD SUGAR DIAGNOSTIC 1 EACH STRIP IN SCH ×4 (06:25→23:01)
[2023-02-15] MEDS: INSULIN REGULAR, HUMAN 100 UNIT/ML 3 ML VIAL SQ PRN ×4 (06:33→23:02)
--- NOTE | 2023-02-15 07:06 | NUR ---
BREAD SLICER MACHINE OPENING NOTES RECEIVED PATIENT SLEEPING IN BED, A/Ox4, ABLE TO MAKE NEEDS KNOWN. ON ROOM AIR, NO S/S OF RESPIRATORY DISTRESS. ON TELE MONITORING SHOWING A-FIB HR 85. NO S/S OF RESPIRATORY DISTRESS. IV ACCESS MIDLINE RAC S/L AND R SHOULDER 24G S/L. INTACT AND PATENT. AMBULATORY WITH ASSIST, HAS COLOSTOMY AND USES URINAL. SKIN ISSUES: GROIN REDNESS. SAFETY MEASURES IN PLACE: BED LOCKED AND IN LOWEST POSITION, HOB ELEVATED, CALL LIGHT WITHIN REACH, SIDE RAILS UPx2. WILL CONTINUE TO MONITOR.
[2023-02-15] MEDS: PANTOPRAZOLE 40 MG TABLET.DR PO SCH (07:31)
[2023-02-15] MEDS: PREGABALIN 25 MG CAPSULE PO SCH ×2 (08:24→16:55)
[2023-02-15] MEDS: PROSOURCE / PROSTAT (PYXIS) 30 ML UDC GT SCH (08:24)
[2023-02-15] MEDS: SERTRALINE HCL 50 MG TABLET PO SCH (08:24)
[2023-02-15] MEDS: FUROSEMIDE 40 MG/4 ML VIAL IV SCH ×2 (08:24→21:32)
[2023-02-15] MEDS: SILVER SULFADIAZINE CREAM 25 GM TUBE TP SCH (08:25)
[2023-02-15] MEDS: CLOTRIMAZOLE 1% 15 GM TUBE TP SCH ×2 (08:25→16:57)
[2023-02-15] MEDS: METOPROLOL TARTRATE 25 MG TABLET PO SCH ×2 (08:27→21:31)
[2023-02-15] MEDS: APIXABAN 5 MG TABLET PO SCH ×2 (08:27→16:55)
[2023-02-15 09:19] LABS: BASOPHILS % (AUTO) 0.5 % (0.0-2.0); EOSINOPHILS % (AUTO) 3.1 % (0.0-6.0); HEMATOCRIT 28 % (39-51); HEMOGLOBIN 8.9 g/dL (13.5-17.5); LYMPHOCYTES # (AUTO) 0.4 K/uL (0.8-4.8); LYMPHOCYTES % (AUTO) 6.1 % (20.0-44.0); MEAN CORPUSCULAR HGB CONC 32 g/dl (31.0-36.0); MEAN CORPUSCULAR VOLUME 99 fL (80-96); MONOCYTES % (AUTO) 13.6 % (2.0-12.0); NEUTROPHILS # (AUTO) 5.4 K/uL (1.8-8.9); NEUTROPHILS % (AUTO) 76.7 % (43.0-81.0); PLATELET COUNT (AUTO) 218 K/uL (150-450); RED BLOOD CELL COUNT(AUTO) 2.84 MIL/uL (4.5-6.0); WHITE BLOOD COUNT (AUTO) 7.1 K/uL (4.3-11.0)
[2023-02-15] MEDS ORDERED: FUROSEMIDE 40 MG/4 ML VIAL IV SCH (09:30)
[2023-02-15 09:54] LABS: CALCIUM, SERUM 8.7 mg/dL (8.5-10.1); CREATININE 1.5 mg/dL (0.6-1.3); POTASSIUM 3.9 mmol/L (3.5-5.1)
--- NOTE | 2023-02-15 11:00 | NUR ---
RN NOTES PATIENT COMPLAINED OF PAIN OF L CALF 06/14. PRN MORPHINE ADMINISTERED. WILL CONTINUE TO MONITOR.
--- NOTE | 2023-02-15 15:00 | NUR ---
RN NOTES PATIENT COMPLAINED OF PAIN OF L CALF 06/14. PRN MORPHINE ADMINISTERED. WILL CONTINUE TO MONITOR.
[2023-02-15] MEDS: SOD FERRIC GLUC 125 MG in IV NS 0.9% 100 ML IV SCH (15:36)
--- NOTE | 2023-02-15 18:50 | NUR ---
RN NOTES PATIENT COMPLAINED OF PAIN 8/10 OF LEFT LEG. PRN MORPHINE ADMINISTERED. WILL CONTINUE TO MONITOR.
--- NOTE | 2023-02-15 18:56 | NUR ---
911 TELECOMMUNICATOR CLOSING NOTES PATIENT RESTING IN BED, A/Ox4, ABLE TO MAKE NEEDS KNOWN. STABLE ON ROOM AIR, NO S/S OF RESPIRATORY DISTRESS. ON TELE MONITORING SHOWING A-FIB HR 85. NO S/S OF RESPIRATORY DISTRESS. IV ACCESS MIDLINE RAC AND R SHOULDER 24G S/L. INTACT AND PATENT. AMBULATORY WITH ASSIST, HAS COLOSTOMY AND USES URINAL. SKIN ISSUES: GROIN REDNESS. SAFETY MEASURES MAINTAINED: BED LOCKED AND IN LOWEST POSITION, HOB ELEVATED, CALL LIGHT WITHIN REACH, SIDE RAILS UPx2. WILL ENDORSE TO NEXT SHIFT ANY RAJINDER.
--- NOTE | 2023-02-15 19:40 | NUR ---
TOBACCO GROWER OPENING NOTE RECEIVED PATIENT AWAKE, RESTING IN BED. PT A/Ox4, ABLE TO MAKE NEEDS KNOWN. ON ROOM AIR, NO S/S OF RESPIRATORY DISTRESS. ON TELE MONITORING SHOWING A-FIB HR 80. NO S/S OF RESPIRATORY DISTRESS. IV ACCESS MIDLINE TO RIGHT AC S/L, AND RIGHT SHOULDER #24G S/L, INTACT AND PATENT. PT AMBULATORY WITH ASSIST. COLOSTOMY BAG IN PLACE, CLEAN, AND PATENT. HAS REDNESS TO GROIN AREA. SAFETY MEASURES IMPLEMENTED: BED LOCKED AND IN LOWEST POSITION, HOB ELEVATED, CALL LIGHT WITHIN REACH, SIDE RAILS UP x2. WILL CONTINUE TO MONITOR PT.
[2023-02-15] MEDS: ATORVASTATIN 40 MG TABLET PO SCH (21:30)
--- NOTE | 2023-02-15 23:00 | NUR ---
GLOBAL PROCESS OWNER NOTE PT REPORTS GENERALIZED PAIN. MORPHINE ADMINISTERED TO PT. WILL CONTINUE TO MONITOR.
[2023-02-16 00:07] VITALS: BP 128/80
[2023-02-16] MEDS: MORPHINE SULFATE INJ 4 MG/ML DISP.SYRIN IV PRN ×3 (04:22→12:25)
[2023-02-16 04:36] VITALS: BP 128/66
[2023-02-16 06:08] LABS: BASOPHILS % (AUTO) 0.4 % (0.0-2.0); EOSINOPHILS % (AUTO) 3.4 % (0.0-6.0); HEMATOCRIT 28 % (39-51); LYMPHOCYTES # (AUTO) 0.6 K/uL (0.8-4.8); LYMPHOCYTES % (AUTO) 9.1 % (20.0-44.0); MEAN CORPUSCULAR HGB CONC 33 g/dl (31.0-36.0); MEAN CORPUSCULAR VOLUME 97 fL (80-96); MONOCYTES # (AUTO) 1.1 K/uL (0.1-1.30); MONOCYTES % (AUTO) 17.1 % (2.0-12.0); NEUTROPHILS # (AUTO) 4.6 K/uL (1.8-8.9); PLATELET COUNT (AUTO) 230 K/uL (150-450); RED BLOOD CELL COUNT(AUTO) 2.85 MIL/uL (4.5-6.0); WHITE BLOOD COUNT (AUTO) 6.6 K/uL (4.3-11.0)
[2023-02-16 06:22] LABS: CALCIUM, SERUM 8.7 mg/dL (8.5-10.1); CREATININE 1.4 mg/dL (0.6-1.3); POTASSIUM 3.6 mmol/L (3.5-5.1)
--- NOTE | 2023-02-16 06:40 | NUR ---
LEARNING DISABILITIES RESOURCE TEACHER CLOSING NOTE LEFT PATIENT AWAKE, RESTING IN BED. PT A/Ox4, ABLE TO MAKE NEEDS KNOWN. STABLE ON ROOM AIR, NO S/S OF RESPIRATORY DISTRESS. ON TELE MONITORING SHOWING A-FIB HR 80. NO S/S OF RESPIRATORY DISTRESS. IV ACCESS MIDLINE RAC AND R SHOULDER 24G S/L. INTACT AND PATENT. AMBULATORY WITH ASSIST, HAS COLOSTOMY AND USES URINAL. SKIN ISSUES: GROIN REDNESS. SAFETY MEASURES MAINTAINED: BED LOCKED AND IN LOWEST POSITION, HOB ELEVATED, CALL LIGHT WITHIN REACH, SIDE RAILS UPx2. WILL ENDORSE TO NEXT SHIFT FOR RAJINDER.
[2023-02-16] MEDS: INSULIN REGULAR, HUMAN 100 UNIT/ML 3 ML VIAL SQ PRN ×2 (06:57→11:31)
[2023-02-16] MEDS: BLOOD SUGAR DIAGNOSTIC 1 EACH STRIP IN SCH ×2 (06:57→11:29)
[2023-02-16 07:00] VITALS: BP 109/54
--- NOTE | 2023-02-16 07:10 | NUR ---
TELE C ARCHITECT OPENING NOTES RECEIVED PATIENT AWAKE, A/Ox4, ABLE TO MAKE NEEDS KNOWN. ON ROOM AIR, NO S/S OF RESPIRATORY DISTRESS. ON TELE MONITORING SHOWING A-FIB HR 72. NO S/S OF RESPIRATORY DISTRESS. IV ACCESS MIDLINE RAC S/L AND R SHOULDER 24G S/L. INTACT AND PATENT. AMBULATORY WITH ASSIST, HAS COLOSTOMY AND USES URINAL. SKIN ISSUES: GROIN REDNESS. SAFETY MEASURES IN PLACE: BED LOCKED AND IN LOWEST POSITION, HOB ELEVATED, CALL LIGHT WITHIN REACH, SIDE RAILS UPx2. WILL CONTINUE TO MONITOR.
[2023-02-16] MEDS: PANTOPRAZOLE 40 MG TABLET.DR PO SCH (08:09)
[2023-02-16] MEDS: PREGABALIN 25 MG CAPSULE PO SCH (08:09)
[2023-02-16] MEDS: SERTRALINE HCL 50 MG TABLET PO SCH (08:10)
[2023-02-16] MEDS: APIXABAN 5 MG TABLET PO SCH (08:10)
[2023-02-16] MEDS: PROSOURCE / PROSTAT (PYXIS) 30 ML UDC GT SCH (08:11)
[2023-02-16] MEDS: CLOTRIMAZOLE 1% 15 GM TUBE TP SCH (08:12)
[2023-02-16] MEDS: SILVER SULFADIAZINE CREAM 25 GM TUBE TP SCH (08:13)
[2023-02-16] MEDS: FUROSEMIDE 40 MG/4 ML VIAL IV SCH (08:14)
[2023-02-16 08:16] VITALS: BP 109/54
[2023-02-16] MEDS: METOPROLOL TARTRATE 25 MG TABLET PO SCH (08:16)
--- NOTE | 2023-02-16 08:33 | NUR ---
RN NOTES PATIENT COMPLAINED OF PAIN 8/10 OF L CALF/LEG. PRN MORPHINE ADMINISTERED. WILL CONTINUE TO MONITOR.
[2023-02-16] MEDS ORDERED: FURO-145 PO (09:37)
[2023-02-16 09:57] LABS: BAND % (MANUAL) 2 % (0.0-5.0); EOSINOPHILS % (MANUAL) 1 % (0-4); LYMPHOCYTES % (MANUAL) 8 % (16-48); MONOCYTES % (MANUAL) 9 % (0-11.0); NEUTROPHILS % (MANUAL) 80 (42-76)
[2023-02-16 11:07] LABS: *SPE A/G RATIO 0.7 (0.7-1.7); *SPE ALPHA-1-GLOBULIN 0.3 g/dL (0.0-0.4); *SPE ALPHA-2-GLOBULIN 0.9 g/dL (0.4-1.0); *SPE BETA GLOBULIN 1.4 g/dL (0.7-1.3); *SPE M-SPIKE Not Observed g/dL (Not Observed)
--- NOTE | 2023-02-16 12:50 | NUR ---
RN NOTES PATIENT COMPLAINED OF PAIN 8/10 OF LEG, PRN MORPHINE ADMINISTERED.
--- NOTE | 2023-02-16 14:00 | NUR ---
GAS COMPRESSOR TURBINE OPERATOR DISCHARGE NOTES PATIENT D/BIRGIT HOME, A/Ox4 ABLE TO MAKE NEEDS KNOWN. STABLE ON ROOM AIR, NO S/S OF RESPIRATORY DISTRESS. PATIENT IV ACCESS REMOVED, PRESSURE DRESSINGS APPLIED. ID BAND REMOVED. DISCHARGE INSTRUCTIONS AND HEALTH TEACHINGS EXPLAINED TO PATIENT, VERBALIZED UNDERSTANDING. PATIENT FORMS SIGNED AND FILED INTO CHART. PATIENT CHANGED INTO CLOTHES, ALL BELONGINGS AND MEDICATION RETURNED. PATIENT LEFT UNIT VIA WHEELCHAIR ACCOMPANIED BY JAVA WEB DEVELOPER, GAS COMPRESSOR TURBINE OPERATOR, AND RN. PATIENT PROVIDED WITH A TAXI VOUCHER AND LEFT VIA TAXI @1330 FROM [facility]. CHARGE NURSE AND MD AWARE OF DISCHARGE.
== END 2023-02-16 13:45 | disposition home health service (06) | DRG 291 ==
LOC: ER 15:40 → TELE 20:00 → MED 02-16 10:37
PROVIDERS: ADMIT Nurse Practitioner Acute Care; ATTEND Internal Medicine
PROC: 05HF33Z Insertion of Infusion Device into Left Cephalic Vein, Percutaneous Approach (ICD-10-PCS; principal; 2023-02-13)
DX: I13.0 Hypertensive heart and chronic kidney disease with heart failure and stage 1 through stage 4 chronic kidney disease, or unspecified chronic kidney disease (principal); I50.33 Acute on chronic diastolic (congestive) heart failure; N17.0 Acute kidney failure with tubular necrosis; J90 Pleural effusion, not elsewhere classified; I48.20 Chronic atrial fibrillation, unspecified; Z68.41 Body mass index [BMI] 40.0-44.9, adult; K21.9 Gastro-esophageal reflux disease without esophagitis; K58.9 Irritable bowel syndrome, unspecified; N18.9 Chronic kidney disease, unspecified; Z20.822 Contact with and (suspected) exposure to COVID-19; E11.22 Type 2 diabetes mellitus with diabetic chronic kidney disease; E11.40 Type 2 diabetes mellitus with diabetic neuropathy, unspecified; Z93.3 Colostomy status; Z79.51 Long term (current) use of inhaled steroids; Z90.49 Acquired absence of other specified parts of digestive tract; Z79.01 Long term (current) use of anticoagulants; Z79.899 Other long term (current) drug therapy; D53.9 Nutritional anemia, unspecified; F32.A Depression, unspecified; E66.01 Morbid (severe) obesity due to excess calories; N40.0 Benign prostatic hyperplasia without lower urinary tract symptoms; G47.33 Obstructive sleep apnea (adult) (pediatric); F41.9 Anxiety disorder, unspecified; E78.5 Hyperlipidemia, unspecified; D63.8 Anemia in other chronic diseases classified elsewhere; D50.9 Iron deficiency anemia, unspecified; Z91.14 Patient's other noncompliance with medication regimen; R60.9 Edema, unspecified; S31.109A Unspecified open wound of abdominal wall, unspecified quadrant without penetration into peritoneal cavity, initial encounter; X58.XXXA Exposure to other specified factors, initial encounter; Y92.9 Unspecified place or not applicable
CPT/HCPCS: 36410; 36415; 71045-TC; 76770-TC; 80048-TC; 80061-TC; 80076-TC; 82570-TC; 82728-TC; 82962-TC; 83540-TC; 83735-TC; 83880; 84100-TC; 84155; 84165; 84300-TC; 84439-TC; 84443-TC; 84484-TC; 85025-TC; 87081-TC; 93307-TC; 93970-TC; 97112-TC; 97116-TC; 97530-TC; A4223; A6403; C9803; G0378; J1815; J1940; J2270; J2405; J2916; J3475; J7030; J7050

== ENCOUNTER 2023-07-12 15:37 | Inpatient (IN) | payer MEDICARE, OTHER ==
[~2023-07-12] VITALS: Ht 182.9 cm; Wt 140.2 kg
[~2023-07-12 15:37] MED LIST changes: -CIPR500T5 PO; +FURO-145 PO; +NEOM10DR11 LEFT EAR; -PANT40TA49 PO; +SULF1TAB48 PO
[2023-07-12 16:36] LABS: BASOPHILS % (AUTO) 0.3 % (0.0-2.0); EOSINOPHILS % (AUTO) 0.4 % (0.0-6.0); HEMATOCRIT 44 % (39-51); HEMOGLOBIN 14.1 g/dL (13.5-17.5); LYMPHOCYTES # (AUTO) 0.4 K/uL (0.8-4.8); LYMPHOCYTES % (AUTO) 2.8 % (20.0-44.0); MEAN CORPUSCULAR HEMOGLOBIN 30 PG (26.0-33.0); MEAN CORPUSCULAR HGB CONC 32 g/dl (31.0-36.0); MEAN CORPUSCULAR VOLUME 95 fL (80-96); MONOCYTES # (AUTO) 1.2 K/uL (0.1-1.30); MONOCYTES % (AUTO) 9.3 % (2.0-12.0); NEUTROPHILS # (AUTO) 11.2 K/uL (1.8-8.9); NEUTROPHILS % (AUTO) 87.2 % (43.0-81.0); PLATELET COUNT (AUTO) 244 K/uL (150-450); RED BLOOD CELL COUNT(AUTO) 4.67 MIL/uL (4.5-6.0); RED CELL DISTRIBUTION WIDTH 17.3 % (11.5-15.0); WHITE BLOOD COUNT (AUTO) 12.9 K/uL (4.3-11.0)
[2023-07-12] MEDS ORDERED: METOPROLOL TARTRATE INJ 5 MG/5 ML AMPUL ONE (16:44)
[2023-07-12 16:48] LABS: CALCIUM, SERUM 10.1 mg/dL (8.5-10.1); CARBON DIOXIDE 18 mmol/L (21-32); CHLORIDE 96 mmol/L (98-107); CREATININE 5.1 mg/dL (0.6-1.3); GLUCOSE 181 mg/dL (74-106); POTASSIUM 4.3 mmol/L (3.5-5.1); SODIUM SERUM 128 mmol/L (136-145); UREA NITROGEN, BLOOD 76 mg/dL (7-18)
[2023-07-12] MEDS ORDERED: METOPROLOL TARTRATE 50 MG TABLET ONE (16:49)
[2023-07-12] MEDS ORDERED: MORPHINE SULFATE INJ 2 MG/ML DISP.SYRIN ONE (16:54)
[2023-07-12] MEDS ORDERED: METOPROLOL TARTRATE INJ 5 MG/5 ML AMPUL IV ONE (17:00)
[2023-07-12] MEDS ORDERED: METOPROLOL SUCCINATE 50 MG TAB.SR.24H PO SCH (17:00)
[2023-07-12] MEDS ORDERED: MORPHINE SULFATE INJ 2 MG/ML DISP.SYRIN IV ONE (17:00)
[2023-07-12] MEDS ORDERED: IV NS 0.9% 500 ML IV ONE (17:00)
[2023-07-12 17:01] LABS: NT-PRO BNP 664 pg/mL (0-125)
[2023-07-12] MEDS ORDERED: CHOL100043 PO (17:15)
[2023-07-12] MEDS ORDERED: FURO-145 PO (17:15)
[2023-07-12] MEDS ORDERED: APIX5TAB PO (17:15)
[2023-07-12] MEDS ORDERED: BLOO-668 IN (17:16)
[2023-07-12] MEDS ORDERED: ZOLPIDEM TARTRATE 5 MG TABLET PO PRN (19:00)
[2023-07-12] MEDS ORDERED: ACETAMINOPHEN 325 MG TABLET PO PRN (19:00)
[2023-07-12] MEDS ORDERED: ONDANSETRON HCL/PF 4 MG/2 ML VIAL IVP PRN (19:00)
[2023-07-12] MEDS ORDERED: Z GUARD REMEDY 4 OZ OINT TP PRN (19:00)
[2023-07-12] MEDS ORDERED: MAG HYDROX/AL HYDROX/SIMETH 30 ML UDC PO PRN (19:00)
[2023-07-12] MEDS ORDERED: MAGNESIUM HYDROXIDE 30 ML UDC PO PRN (19:00)
[2023-07-12] MEDS ORDERED: *INSULIN REGULAR(HUMULIN R)HUM 100 UNIT/ML VIAL SQ PRN (19:30)
[2023-07-12] MEDS ORDERED: DEXTROSE 50%-WATER 50 ML DISP.SYRIN IV PRN (19:30)
[2023-07-12 20:10] VITALS: O2SAT 96
[2023-07-12 21:10] VITALS: BP 133/76; TEMP 99; O2SAT 96
[2023-07-12] MEDS: METOPROLOL TARTRATE 25 MG TABLET PO SCH (22:00)
[2023-07-12] MEDS: APIXABAN 5 MG TABLET PO SCH (22:01)
[2023-07-12] MEDS: SERTRALINE HCL 50 MG TABLET PO SCH ×2 (22:05→22:26)
[2023-07-12] MEDS: BLOOD SUGAR DIAGNOSTIC 1 EACH STRIP VI SCH (22:21)
[2023-07-12] MEDS ORDERED: CEFTRIAXONE 1GM BAG (ER ONLY) 50 ML IV ONE (22:23)
[2023-07-12] MEDS: CEFTRIAXONE 1 G in IV D5W 50 ML IV SCH (22:26)
[2023-07-12] MEDS: ATORVASTATIN 40 MG TABLET PO SCH (22:26)
[2023-07-12] MEDS: IV NS 0.9% 1,000 ML IV PRN (22:27)
[2023-07-12] MEDS ORDERED: ALBUTEROL FS 2.5 MG/3 ML VIAL.NEB IH PRN (22:30)
[2023-07-12] MEDS: HYDROCODONE/APAP 5/325MG TABLET PO PRN (23:47)
[2023-07-13] VITALS: BP 126/75; TEMP 98.8; O2SAT 96
[2023-07-13 04:46] LABS: APPEARANCE,URINE TURBID (CLEAR); BILIRUBIN,URINE NEGATIVE (NEGATIVE); BLOOD, URINE 3+ Ery/uL (NEGATIVE); COLOR,URINE DARK YELLOW (YELLOW); KETONES,URINE TRACE mg/dL (NEGATIVE); LEUKOCYTE ESTERASE ,URINE 2+ (NEGATIVE); NITRITE, URINE NEGATIVE (NEGATIVE); PROTEIN,URINE 3+ mg/dl (NEGATIVE); UGLUCOSE NEGATIVE (NEGATIVE); UROBILINOGEN,URINE 0.2 EU/dL (0.2)
[2023-07-13 04:48] LABS: ADD URINE CULTURE YES; BACTERIA,URINE Moderate /HPF (None Seen); SQUAMOUS EPITHELIAL CELL,UR Rare /HPF (None Seen); WBC,URINE TOO NUMEROUS TO COUN /HPF (0-3)
[2023-07-13 05:00] VITALS: BP 98/81; TEMP 98.7; O2SAT 93
[2023-07-13] MEDS: BLOOD SUGAR DIAGNOSTIC 1 EACH STRIP VI SCH ×4 (06:34→21:35)
[2023-07-13] MEDS: INSULIN REGULAR, HUMAN 100 UNIT/ML 3 ML VIAL SQ PRN ×3 (06:34→16:38)
[2023-07-13 07:59] LABS: CALCIUM, SERUM 9.4 mg/dL (8.5-10.1); CREATININE 5.2 mg/dL (0.6-1.3); PHOSPHORUS 4.2 mg/dL (2.5-4.9); POTASSIUM 4.7 mmol/L (3.5-5.1)
[2023-07-13] MEDS: PREGABALIN 25 MG CAPSULE PO SCH ×2 (08:38→16:21)
[2023-07-13] MEDS: CHOLECALCIFEROL 1,000 UNIT TABLET (VIT D3) PO SCH (08:38)
[2023-07-13] MEDS: SERTRALINE HCL 50 MG TABLET PO SCH ×2 (08:38→20:29)
[2023-07-13] MEDS: PANTOPRAZOLE 40 MG TABLET.DR PO SCH (08:38)
[2023-07-13] MEDS: METOPROLOL TARTRATE 25 MG TABLET PO SCH ×2 (08:39→16:21)
[2023-07-13] MEDS: APIXABAN 5 MG TABLET PO SCH ×2 (08:40→20:28)
[2023-07-13 08:47] LABS: BASOPHILS % (AUTO) 0.5 % (0.0-2.0); EOSINOPHILS # (AUTO) 0.2 K/uL (0.0-0.7); EOSINOPHILS % (AUTO) 2.7 % (0.0-6.0); HEMATOCRIT 41 % (39-51); HEMOGLOBIN 13.1 g/dL (13.5-17.5); LYMPHOCYTES # (AUTO) 0.7 K/uL (0.8-4.8); LYMPHOCYTES % (AUTO) 8.3 % (20.0-44.0); MEAN CORPUSCULAR HEMOGLOBIN 31 PG (26.0-33.0); MEAN CORPUSCULAR HGB CONC 32 g/dl (31.0-36.0); MEAN CORPUSCULAR VOLUME 96 fL (80-96); MONOCYTES # (AUTO) 1.8 K/uL (0.1-1.30); MONOCYTES % (AUTO) 19.8 % (2.0-12.0); NEUTROPHILS # (AUTO) 6.2 K/uL (1.8-8.9); NEUTROPHILS % (AUTO) 68.7 % (43.0-81.0); PLATELET COUNT (AUTO) 203 K/uL (150-450); RED BLOOD CELL COUNT(AUTO) 4.24 MIL/uL (4.5-6.0)
[2023-07-13 09:00] VITALS: BP 122/73; TEMP 98.4; O2SAT 94
[2023-07-13] MEDS ORDERED: BLOOD SUGAR DIAGNOSTIC 1 EACH STRIP IN SCH (09:00)
[2023-07-13 09:46] LABS: THYROID STIMULATING HORMONE 0.613 uIU/mL (0.358-3.74)
[2023-07-13 11:29] LABS: BASOPHILS % (MANUAL) 0 % (0.0-2.0); EOSINOPHILS % (MANUAL) 2 % (0-4); LYMPHOCYTES % (MANUAL) 9 % (16-48); MONOCYTES % (MANUAL) 18 % (0-11.0); NEUTROPHILS % (MANUAL) 71 (42-76); PLATELET ESTIMATE ADEQUATE
[2023-07-13 11:30] LABS: ANISOCYTOSIS 1+
[2023-07-13] MEDS: IV NS 0.9% 1,000 ML IV PRN (12:45)
[2023-07-13 13:21] VITALS: BP 136/89; TEMP 98.4; O2SAT 95
[2023-07-13 16:00] VITALS: BP 110/70; TEMP 98.4; O2SAT 94
[2023-07-13] MEDS: MORPHINE SULFATE INJ 2 MG/ML DISP.SYRIN IV PRN ×2 (17:40→23:30)
[2023-07-13 20:00] VITALS: BP 128/88; TEMP 98.4; O2SAT 98
[2023-07-13] MEDS: CEFTRIAXONE 1 G in IV D5W 50 ML IV SCH (21:21)
[2023-07-13] MEDS: ATORVASTATIN 40 MG TABLET PO SCH (21:21)
[2023-07-14] VITALS: BP 107/67; TEMP 98.8; O2SAT 95
[2023-07-14 04:00] VITALS: BP 130/89; TEMP 98.2; O2SAT 96
[2023-07-14] MEDS: MORPHINE SULFATE INJ 2 MG/ML DISP.SYRIN IV PRN ×3 (05:36→18:54)
[2023-07-14] MEDS: IV NS 0.9% 1,000 ML IV PRN (06:06)
[2023-07-14 06:27] LABS: BASOPHILS % (AUTO) 0.7 % (0.0-2.0); EOSINOPHILS # (AUTO) 0.4 K/uL (0.0-0.7); EOSINOPHILS % (AUTO) 7.4 % (0.0-6.0); HEMATOCRIT 39 % (39-51); HEMOGLOBIN 12.7 g/dL (13.5-17.5); LYMPHOCYTES # (AUTO) 0.8 K/uL (0.8-4.8); LYMPHOCYTES % (AUTO) 13.2 % (20.0-44.0); MEAN CORPUSCULAR HEMOGLOBIN 31 PG (26.0-33.0); MEAN CORPUSCULAR HGB CONC 32 g/dl (31.0-36.0); MEAN CORPUSCULAR VOLUME 96 fL (80-96); MONOCYTES # (AUTO) 1.2 K/uL (0.1-1.30); NEUTROPHILS # (AUTO) 3.4 K/uL (1.8-8.9); NEUTROPHILS % (AUTO) 57.7 % (43.0-81.0); PLATELET COUNT (AUTO) 181 K/uL (150-450); RED BLOOD CELL COUNT(AUTO) 4.11 MIL/uL (4.5-6.0); WHITE BLOOD COUNT (AUTO) 5.8 K/uL (4.3-11.0)
[2023-07-14] MEDS: BLOOD SUGAR DIAGNOSTIC 1 EACH STRIP VI SCH ×4 (06:48→22:00)
[2023-07-14 06:52] LABS: ALBUMIN 2.7 g/dL (3.4-5.0); BILIRUBIN,TOTAL 0.2 mg/dL (0.2-1.0); CREATININE 3.5 mg/dL (0.6-1.3); MAGNESIUM 1.9 mg/dL (1.8-2.4)
[2023-07-14 08:00] VITALS: BP 107/67; TEMP 97.7; O2SAT 96
[2023-07-14] MEDS: PANTOPRAZOLE 40 MG TABLET.DR PO SCH (08:16)
[2023-07-14] MEDS: METOPROLOL TARTRATE 25 MG TABLET PO SCH ×2 (08:16→16:40)
[2023-07-14] MEDS: PREGABALIN 25 MG CAPSULE PO SCH ×2 (08:16→16:40)
[2023-07-14] MEDS: SERTRALINE HCL 50 MG TABLET PO SCH ×2 (08:16→22:17)
[2023-07-14] MEDS: CHOLECALCIFEROL 1,000 UNIT TABLET (VIT D3) PO SCH (08:16)
[2023-07-14] MEDS: APIXABAN 5 MG TABLET PO SCH ×2 (08:17→22:20)
[2023-07-14] MEDS: INSULIN REGULAR, HUMAN 100 UNIT/ML 3 ML VIAL SQ PRN ×3 (11:12→23:09)
[2023-07-14] MEDS ORDERED: IV NS 0.9% 1,000 ML IV PRN (11:53)
[2023-07-14 20:00] VITALS: BP 112/71; TEMP 97.2; O2SAT 97
[2023-07-14] MEDS: ATORVASTATIN 40 MG TABLET PO SCH (22:21)
[2023-07-14] MEDS: CEFTRIAXONE 1 G in IV D5W 50 ML IV SCH (22:25)
[2023-07-15] MEDS: MORPHINE SULFATE INJ 2 MG/ML DISP.SYRIN IV PRN ×5 (01:23→08:35)
[2023-07-15 06:17] LABS: BASOPHILS % (AUTO) 0.8 % (0.0-2.0); EOSINOPHILS # (AUTO) 0.4 K/uL (0.0-0.7); EOSINOPHILS % (AUTO) 7.8 % (0.0-6.0); HEMATOCRIT 41 % (39-51); HEMOGLOBIN 12.5 g/dL (13.5-17.5); LYMPHOCYTES # (AUTO) 0.6 K/uL (0.8-4.8); LYMPHOCYTES % (AUTO) 12.1 % (20.0-44.0); MEAN CORPUSCULAR HEMOGLOBIN 31 PG (26.0-33.0); MEAN CORPUSCULAR HGB CONC 31 g/dl (31.0-36.0); MEAN CORPUSCULAR VOLUME 101 fL (80-96); MONOCYTES % (AUTO) 19.2 % (2.0-12.0); NEUTROPHILS % (AUTO) 60.1 % (43.0-81.0); PLATELET COUNT (AUTO) 162 K/uL (150-450); RED BLOOD CELL COUNT(AUTO) 4.03 MIL/uL (4.5-6.0); WHITE BLOOD COUNT (AUTO) 5.1 K/uL (4.3-11.0)
[2023-07-15 06:29] LABS: CREATININE 2.2 mg/dL (0.6-1.3); PHOSPHORUS 4.8 mg/dL (2.5-4.9); POTASSIUM 4.7 mmol/L (3.5-5.1)
[2023-07-15] MEDS: PANTOPRAZOLE 40 MG TABLET.DR PO SCH (06:39)
[2023-07-15] MEDS: BLOOD SUGAR DIAGNOSTIC 1 EACH STRIP VI SCH ×4 (07:11→21:37)
[2023-07-15] MEDS: SERTRALINE HCL 50 MG TABLET PO SCH ×2 (09:28→21:34)
[2023-07-15] MEDS: PREGABALIN 25 MG CAPSULE PO SCH ×2 (09:28→17:49)
[2023-07-15] MEDS: CHOLECALCIFEROL 1,000 UNIT TABLET (VIT D3) PO SCH (09:29)
[2023-07-15] MEDS: APIXABAN 5 MG TABLET PO SCH ×2 (09:30→21:36)
[2023-07-15] MEDS: METOPROLOL TARTRATE 25 MG TABLET PO SCH ×2 (09:50→17:48)
[2023-07-15] MEDS: INSULIN REGULAR, HUMAN 100 UNIT/ML 3 ML VIAL SQ PRN ×2 (12:03→17:55)
[2023-07-15 12:16] LABS: ANISOCYTOSIS 1+; BASOPHILS % (MANUAL) 0 % (0.0-2.0); EOSINOPHILS % (MANUAL) 2 % (0-4); LYMPHOCYTES % (MANUAL) 9 % (16-48); MONOCYTES % (MANUAL) 16 % (0-11.0); NEUTROPHILS % (MANUAL) 73 (42-76); PLATELET ESTIMATE ADEQUATE
[2023-07-15 20:46] VITALS: BP 119/61; TEMP 97.9; O2SAT 96
[2023-07-15] MEDS: ATORVASTATIN 40 MG TABLET PO SCH (21:34)
[2023-07-15] MEDS: CEFTRIAXONE 1 G in IV D5W 50 ML IV SCH (22:49)
[2023-07-15] MEDS: HYDROCODONE/APAP 5/325MG TABLET PO PRN (23:18)
[2023-07-16] MEDS: BLOOD SUGAR DIAGNOSTIC 1 EACH STRIP VI SCH ×3 (06:40→18:21)
[2023-07-16] MEDS: INSULIN REGULAR, HUMAN 100 UNIT/ML 3 ML VIAL SQ PRN ×3 (06:41→18:22)
[2023-07-16 07:30] VITALS: BP 114/63; TEMP 97.7; O2SAT 97
[2023-07-16 07:31] LABS: BASOPHILS % (AUTO) 0.7 % (0.0-2.0); EOSINOPHILS # (AUTO) 0.3 K/uL (0.0-0.7); EOSINOPHILS % (AUTO) 7.6 % (0.0-6.0); HEMATOCRIT 44 % (39-51); HEMOGLOBIN 13.2 g/dL (13.5-17.5); LYMPHOCYTES # (AUTO) 0.7 K/uL (0.8-4.8); LYMPHOCYTES % (AUTO) 14.8 % (20.0-44.0); MEAN CORPUSCULAR HEMOGLOBIN 30 PG (26.0-33.0); MEAN CORPUSCULAR HGB CONC 30 g/dl (31.0-36.0); MEAN CORPUSCULAR VOLUME 102 fL (80-96); MONOCYTES # (AUTO) 0.8 K/uL (0.1-1.30); MONOCYTES % (AUTO) 18.3 % (2.0-12.0); NEUTROPHILS # (AUTO) 2.6 K/uL (1.8-8.9); NEUTROPHILS % (AUTO) 58.6 % (43.0-81.0); PLATELET COUNT (AUTO) 99 K/uL (150-450); RED BLOOD CELL COUNT(AUTO) 4.35 MIL/uL (4.5-6.0); RED CELL DISTRIBUTION WIDTH 18.5 % (11.5-15.0); WHITE BLOOD COUNT (AUTO) 4.5 K/uL (4.3-11.0)
[2023-07-16 07:45] LABS: CALCIUM, SERUM 9.2 mg/dL (8.5-10.1); CREATININE 1.7 mg/dL (0.6-1.3); MAGNESIUM 1.8 mg/dL (1.8-2.4); PHOSPHORUS 4.2 mg/dL (2.5-4.9); POTASSIUM 5.4 mmol/L (3.5-5.1)
[2023-07-16] MEDS: SERTRALINE HCL 50 MG TABLET PO SCH (08:21)
[2023-07-16] MEDS: METOPROLOL TARTRATE 25 MG TABLET PO SCH ×2 (08:21→18:14)
[2023-07-16] MEDS: PREGABALIN 25 MG CAPSULE PO SCH ×2 (08:21→18:13)
[2023-07-16] MEDS: CHOLECALCIFEROL 1,000 UNIT TABLET (VIT D3) PO SCH (08:21)
[2023-07-16] MEDS: PANTOPRAZOLE 40 MG TABLET.DR PO SCH (08:21)
[2023-07-16] MEDS: APIXABAN 5 MG TABLET PO SCH (08:25)
[2023-07-16] MEDS ORDERED: CEPH500C2 PO (14:27)
[2023-07-16 16:00] VITALS: BP 125/82; TEMP 98.1; O2SAT 96
[2023-07-16 18:14] VITALS: BP 115/59
[2023-07-16 23:11] LABS: EOSINOPHILS % (MANUAL) 3 % (0-4); LYMPHOCYTES % (MANUAL) 19 % (16-48); MONOCYTES % (MANUAL) 10 % (0-11.0); NEUTROPHILS % (MANUAL) 68 (42-76)
[2023-07-16 23:12] LABS: ANISOCYTOSIS 1+; PLATELET ESTIMATE DECREASED
== END 2023-07-16 19:00 | disposition home health service (06) | DRG 308 ==
LOC: ER 17:58 → TELE 20:58 → MED 07-14 08:55
PROVIDERS: ADMIT Student in an Organized Health Care Education/Training Program; ATTEND Student in an Organized Health Care Education/Training Program
DX: I48.91 Unspecified atrial fibrillation (principal); N17.0 Acute kidney failure with tubular necrosis; E87.1 Hypo-osmolality and hyponatremia; I13.0 Hypertensive heart and chronic kidney disease with heart failure and stage 1 through stage 4 chronic kidney disease, or unspecified chronic kidney disease; N39.0 Urinary tract infection, site not specified; E87.4 Mixed disorder of acid-base balance; K58.9 Irritable bowel syndrome, unspecified; N18.9 Chronic kidney disease, unspecified; D64.9 Anemia, unspecified; E78.5 Hyperlipidemia, unspecified; E87.5 Hyperkalemia; I25.10 Atherosclerotic heart disease of native coronary artery without angina pectoris; Z93.3 Colostomy status; Z79.01 Long term (current) use of anticoagulants; E11.42 Type 2 diabetes mellitus with diabetic polyneuropathy; I50.9 Heart failure, unspecified; R07.9 Chest pain, unspecified; E11.22 Type 2 diabetes mellitus with diabetic chronic kidney disease; E86.9 Volume depletion, unspecified; M89.8X9 Other specified disorders of bone, unspecified site; Z90.49 Acquired absence of other specified parts of digestive tract
CPT/HCPCS: 36415; 71045-TC; 76770-TC; 80048-TC; 80053-TC; 81001; 82962-TC; 83735-TC; 83880; 83970; 84100-TC; 84132-TC; 84295-TC; 84443-TC; 84484-TC; 85025-TC; 87086-TC; 97110-TC; 97116-TC; 97530-TC; A4223; G0378; J0696; J1815; J2270; J3490; J7030; J7060

== ENCOUNTER 2023-08-23 16:51 | Inpatient (IN) | payer MEDICARE, OTHER ==
[~2023-08-23] VITALS: Ht 182.9 cm; Wt 137.1 kg
[~2023-08-23 16:51] MED LIST changes: +APIX5TAB PO; -APIX5TAB4 PO; +BLOO-668 IN; +CALC667C6 PO; +CHOL100043 PO; -FURO-145 PO; +LEVO750T46 PO; -NEOM10DR11 LEFT EAR; -TAMS-12 PO; -ZOLP5TAB8 PO
[2023-08-23] MEDS ORDERED: ONDANSETRON HCL/PF 4 MG/2 ML VIAL IV ONE (17:30)
[2023-08-23] MEDS ORDERED: IV NS 0.9% 1,000 ML BAG IV ONE (17:30)
[2023-08-23] MEDS ORDERED: ONDANSETRON HCL/PF 4 MG/2 ML VIAL ONE (17:47)
[2023-08-23 17:50] LABS: BASOPHILS # (AUTO) 0.1 K/uL (0.0-0.2); BASOPHILS % (AUTO) 0.8 % (0.0-2.0); EOSINOPHILS # (AUTO) 0.1 K/uL (0.0-0.7); HEMATOCRIT 39 % (39-51); HEMOGLOBIN 12.7 g/dL (13.5-17.5); LYMPHOCYTES # (AUTO) 0.7 K/uL (0.8-4.8); MEAN CORPUSCULAR HEMOGLOBIN 31 PG (26.0-33.0); MEAN CORPUSCULAR HGB CONC 33 g/dl (31.0-36.0); MEAN CORPUSCULAR VOLUME 96 fL (80-96); MONOCYTES # (AUTO) 0.9 K/uL (0.1-1.30); NEUTROPHILS # (AUTO) 5.1 K/uL (1.8-8.9); NEUTROPHILS % (AUTO) 75.2 % (43.0-81.0); PLATELET COUNT (AUTO) 217 K/uL (150-450); RED BLOOD CELL COUNT(AUTO) 4.06 MIL/uL (4.5-6.0); RED CELL DISTRIBUTION WIDTH 15.2 % (11.5-15.0); WHITE BLOOD COUNT (AUTO) 6.8 K/uL (4.3-11.0)
[2023-08-23 18:18] LABS: ALANINE AMINOTRANSFERASE 26 U/L (12-78); ALBUMIN 3.3 g/dL (3.4-5.0); ALKALINE PHOSPHATASE 60 U/L (46-116); ASPARTATE AMINOTRANSFERASE 29 U/L (15-37); BILIRUBIN,DIRECT 0.1 mg/dL (0.0-0.2); BILIRUBIN,TOTAL 0.3 mg/dL (0.2-1.0); CALCIUM, SERUM 9.1 mg/dL (8.5-10.1); CARBON DIOXIDE 24 mmol/L (21-32); CHLORIDE 103 mmol/L (98-107); CREATININE 4.1 mg/dL (0.6-1.3); GLUCOSE 113 mg/dL (74-106); POTASSIUM 3.7 mmol/L (3.5-5.1); SODIUM SERUM 142 mmol/L (136-145); UREA NITROGEN, BLOOD 34 mg/dL (7-18)
[2023-08-23 18:20] LABS: LACTIC ACID 1.3 mmol/L (0.4-2.0)
[2023-08-23] MEDS ORDERED: MORPHINE SULFATE INJ 2 MG/ML DISP.SYRIN ONE (18:59)
[2023-08-23] MEDS ORDERED: MORPHINE SULFATE INJ 2 MG/ML DISP.SYRIN IV ONE (19:00)
[2023-08-23] MEDS ORDERED: DEXTROSE 50%-WATER 50 ML DISP.SYRIN IV PRN (19:30)
[2023-08-23] MEDS ORDERED: ACETAMINOPHEN 325 MG TABLET PO PRN (19:30)
[2023-08-23] MEDS ORDERED: ZOLPIDEM TARTRATE 5 MG TABLET PO PRN (19:30)
[2023-08-23] MEDS ORDERED: Z GUARD REMEDY 4 OZ OINT TP PRN (19:30)
[2023-08-23] MEDS ORDERED: MAG HYDROX/AL HYDROX/SIMETH 30 ML UDC PO PRN (19:30)
[2023-08-23] MEDS ORDERED: MAGNESIUM HYDROXIDE 30 ML UDC PO PRN (19:30)
[2023-08-23] MEDS ORDERED: ALBUTEROL FS 2.5 MG/3 ML VIAL.NEB IH PRN (20:00)
[2023-08-23] MEDS: SERTRALINE HCL 50 MG TABLET PO SCH (21:00)
[2023-08-23] MEDS ORDERED: CEFEPIME 1 GM in IV D5W 50 ML IV SCH (21:25)
[2023-08-23 21:45] VITALS: BP_SYST 120; BP_SYST 132; BP_DIAS 75; BP_DIAS 89; TEMP 98.8; O2SAT 97
[2023-08-23] MEDS: ATORVASTATIN 40 MG TABLET PO SCH (22:00)
[2023-08-23] MEDS: HYDROCODONE/APAP 10/325MG TABLET PO PRN (23:26)
[2023-08-23] MEDS ORDERED: CEFEPIME 1 GM VIAL ONE (23:51)
[2023-08-24] VITALS: BP 111/81; TEMP 98.6; O2SAT 94
[2023-08-24] MEDS: BLOOD SUGAR DIAGNOSTIC 1 EACH STRIP IN SCH ×5 (00:40→21:37)
[2023-08-24] MEDS: INSULIN REGULAR, HUMAN 100 UNIT/ML 3 ML VIAL SQ PRN ×4 (00:40→21:37)
[2023-08-24] MEDS: IV 1/2NS 1000 ML 1,000 ML IV PRN ×2 (00:52→16:49)
[2023-08-24] MEDS: ONDANSETRON HCL/PF 4 MG/2 ML VIAL IVP PRN ×4 (01:23→21:15)
[2023-08-24] MEDS: HYDROMORPHONE INJ 2 MG/ML DISP.SYRIN IV PRN ×3 (01:24→10:23)
[2023-08-24 05:00] VITALS: BP 131/87; TEMP 98.4; O2SAT 95
[2023-08-24 06:57] LABS: BASOPHILS % (AUTO) 0.6 % (0.0-2.0); EOSINOPHILS # (AUTO) 0.2 K/uL (0.0-0.7); EOSINOPHILS % (AUTO) 3.2 % (0.0-6.0); HEMATOCRIT 37 % (39-51); HEMOGLOBIN 12.1 g/dL (13.5-17.5); LYMPHOCYTES # (AUTO) 1.1 K/uL (0.8-4.8); LYMPHOCYTES % (AUTO) 14.4 % (20.0-44.0); MEAN CORPUSCULAR HEMOGLOBIN 31 PG (26.0-33.0); MEAN CORPUSCULAR HGB CONC 33 g/dl (31.0-36.0); MEAN CORPUSCULAR VOLUME 95 fL (80-96); MONOCYTES # (AUTO) 1.1 K/uL (0.1-1.30); MONOCYTES % (AUTO) 14.8 % (2.0-12.0); PLATELET COUNT (AUTO) 188 K/uL (150-450); RED BLOOD CELL COUNT(AUTO) 3.86 MIL/uL (4.5-6.0); RED CELL DISTRIBUTION WIDTH 15.1 % (11.5-15.0); WHITE BLOOD COUNT (AUTO) 7.4 K/uL (4.3-11.0)
[2023-08-24 07:22] LABS: CALCIUM, SERUM 8.5 mg/dL (8.5-10.1); CREATININE 4.8 mg/dL (0.6-1.3); MAGNESIUM 1.4 mg/dL (1.8-2.4); PHOSPHORUS 5.2 mg/dL (2.5-4.9); POTASSIUM 3.4 mmol/L (3.5-5.1)
[2023-08-24] MEDS: CALCIUM ACETATE 667 MG CAP/TAB PO SCH ×4 (08:00→17:21)
[2023-08-24 08:17] VITALS: BP 118/78; TEMP 98.6; O2SAT 96
[2023-08-24] MEDS ORDERED: CALC667C6 PO (08:26)
[2023-08-24] MEDS: METOPROLOL TARTRATE 25 MG TABLET PO SCH ×2 (08:35→17:21)
[2023-08-24] MEDS: CHOLECALCIFEROL 1,000 UNIT TABLET (VIT D3) PO SCH (08:35)
[2023-08-24] MEDS: SERTRALINE HCL 50 MG TABLET PO SCH ×2 (08:35→21:15)
[2023-08-24] MEDS: ASPIRIN 81 MG TAB.CHEW PO SCH (08:35)
[2023-08-24] MEDS: PREGABALIN 25 MG CAPSULE PO SCH ×2 (08:35→17:21)
[2023-08-24] MEDS: APIXABAN 2.5 MG TABLET PO SCH ×2 (08:40→17:23)
[2023-08-24] MEDS ORDERED: POTASSIUM CHLORIDE 20 MEQ TAB.PRT.SR PO SCH (10:00)
[2023-08-24] MEDS ORDERED: Magnesium 1GM/D5W 100ML PREMIX 100 ML IV SCH (10:00)
[2023-08-24] MEDS: CLOTRIMAZOLE 1% 15 GM TUBE TP SCH ×2 (10:08→17:29)
[2023-08-24 11:39] LABS: APPEARANCE,URINE CLOUDY (CLEAR); BILIRUBIN,URINE 1+ (NEGATIVE); BLOOD, URINE 3+ Ery/uL (NEGATIVE); COLOR,URINE DARK YELLOW (YELLOW); KETONES,URINE TRACE mg/dL (NEGATIVE); LEUKOCYTE ESTERASE ,URINE 2+ (NEGATIVE); NITRITE, URINE POSITIVE (NEGATIVE); PROTEIN,URINE 2+ mg/dl (NEGATIVE); UGLUCOSE NEGATIVE (NEGATIVE); UROBILINOGEN,URINE 0.2 EU/dL (0.2)
[2023-08-24 11:49] LABS: CREATININE, URINE 329.7 MG/DL (30.0-125.0); RBC,URINE 81-100 /HPF (0-2); URINE TOTAL PROTEIN 133.9 mg/dL (0-11.9)
[2023-08-24 11:51] LABS: ADD URINE CULTURE YES; BACTERIA,URINE Moderate /HPF (None Seen); SQUAMOUS EPITHELIAL CELL,UR Moderate /HPF (None Seen)
[2023-08-24 12:52] LABS: EOSINOPHIL,URINE None Seen
[2023-08-24] MEDS: HYDROCODONE/APAP 10/325MG TABLET PO PRN ×2 (14:51→19:41)
[2023-08-24 16:31] VITALS: BP 105/55; TEMP 98.1; O2SAT 96
[2023-08-24 20:00] VITALS: BP 103/73; TEMP 97.9; O2SAT 94; O2SAT 95
[2023-08-24] MEDS: ATORVASTATIN 40 MG TABLET PO SCH (21:14)
[2023-08-24] MEDS: CEFEPIME 1 GM in IV D5W 50 ML IV SCH (21:15)
[2023-08-25] VITALS: BP 98/67; TEMP 97.7; TEMP 97.8; O2SAT 96
[2023-08-25] MEDS: HYDROCODONE/APAP 10/325MG TABLET PO PRN ×4 (00:47→22:05)
[2023-08-25 04:00] VITALS: BP 108/95; TEMP 98.1; O2SAT 98
[2023-08-25] MEDS: INSULIN REGULAR, HUMAN 100 UNIT/ML 3 ML VIAL SQ PRN ×2 (06:53→21:50)
[2023-08-25] MEDS: BLOOD SUGAR DIAGNOSTIC 1 EACH STRIP IN SCH ×4 (06:53→21:49)
[2023-08-25] MEDS: IV 1/2NS 1000 ML 1,000 ML IV PRN (06:59)
[2023-08-25 08:00] VITALS: BP 108/74; TEMP 97.5; O2SAT 98
[2023-08-25] MEDS: SERTRALINE HCL 50 MG TABLET PO SCH ×2 (08:23→21:21)
[2023-08-25] MEDS: ASPIRIN 81 MG TAB.CHEW PO SCH (08:23)
[2023-08-25] MEDS: PREGABALIN 25 MG CAPSULE PO SCH ×2 (08:24→17:27)
[2023-08-25] MEDS: METOPROLOL TARTRATE 25 MG TABLET PO SCH ×2 (08:25→17:00)
[2023-08-25] MEDS: CALCIUM ACETATE 667 MG CAP/TAB PO SCH ×3 (08:25→17:50)
[2023-08-25] MEDS: CHOLECALCIFEROL 1,000 UNIT TABLET (VIT D3) PO SCH (08:26)
[2023-08-25] MEDS: APIXABAN 2.5 MG TABLET PO SCH ×2 (08:27→17:30)
[2023-08-25] MEDS: THERAHONEY GEL 1.5 OZ TUBE TP SCH (09:24)
[2023-08-25] MEDS: CLOTRIMAZOLE 1% 15 GM TUBE TP SCH ×2 (09:26→17:53)
[2023-08-25] MEDS ORDERED: IV NS 0.9% 1,000 ML BAG IV PRN (10:30)
[2023-08-25] MEDS ORDERED: IV NS 0.9% 1,000 ML IV ONE (10:30)
[2023-08-25 10:32] LABS: ALBUMIN 2.9 g/dL (3.4-5.0); BILIRUBIN,TOTAL 0.3 mg/dL (0.2-1.0); CREATININE 4.5 mg/dL (0.6-1.3); MAGNESIUM 1.5 mg/dL (1.8-2.4); PHOSPHORUS 5.2 mg/dL (2.5-4.9); POTASSIUM 3.5 mmol/L (3.5-5.1); TOTAL PROTEIN, SERUM 7.1 g/dL (6.4-8.2)
[2023-08-25 11:32] LABS: BASOPHILS % (AUTO) 0.7 % (0.0-2.0); EOSINOPHILS # (AUTO) 0.3 K/uL (0.0-0.7); EOSINOPHILS % (AUTO) 5.3 % (0.0-6.0); HEMATOCRIT 36 % (39-51); HEMOGLOBIN 11.7 g/dL (13.5-17.5); LYMPHOCYTES # (AUTO) 0.6 K/uL (0.8-4.8); LYMPHOCYTES % (AUTO) 10.6 % (20.0-44.0); MEAN CORPUSCULAR HEMOGLOBIN 31 PG (26.0-33.0); MEAN CORPUSCULAR HGB CONC 33 g/dl (31.0-36.0); MEAN CORPUSCULAR VOLUME 95 fL (80-96); MONOCYTES # (AUTO) 0.8 K/uL (0.1-1.30); MONOCYTES % (AUTO) 13.5 % (2.0-12.0); NEUTROPHILS # (AUTO) 4.1 K/uL (1.8-8.9); NEUTROPHILS % (AUTO) 69.9 % (43.0-81.0); PLATELET COUNT (AUTO) 170 K/uL (150-450); RED BLOOD CELL COUNT(AUTO) 3.73 MIL/uL (4.5-6.0); WHITE BLOOD COUNT (AUTO) 5.9 K/uL (4.3-11.0)
[2023-08-25] MEDS: MAGNESIUM OXIDE 400 MG TABLET PO SCH ×2 (11:39→21:21)
[2023-08-25 12:00] VITALS: BP 118/74; TEMP 97.5; O2SAT 99
[2023-08-25] MEDS ORDERED: MAGNESIUM OXIDE 400 MG TABLET PO ONE (15:00)
[2023-08-25 16:00] VITALS: BP 101/65; TEMP 98.2; O2SAT 94
[2023-08-25] MEDS: IV NS 0.9% 1,000 ML BAG IV PRN (16:19)
[2023-08-25] MEDS: ONDANSETRON HCL/PF 4 MG/2 ML VIAL IVP PRN (17:48)
[2023-08-25 20:00] VITALS: BP 110/72; TEMP 98.1; O2SAT 95
[2023-08-25] MEDS: CEFEPIME 1 GM in IV D5W 50 ML IV SCH (21:20)
[2023-08-25] MEDS: ATORVASTATIN 40 MG TABLET PO SCH (21:21)
[2023-08-26] MEDS: ONDANSETRON HCL/PF 4 MG/2 ML VIAL IVP PRN ×2 (00:57→07:55)
[2023-08-26] MEDS: IV NS 0.9% 1,000 ML BAG IV PRN ×2 (03:04→13:49)
[2023-08-26 05:53] LABS: BASOPHILS % (AUTO) 0.6 % (0.0-2.0); EOSINOPHILS # (AUTO) 0.4 K/uL (0.0-0.7); EOSINOPHILS % (AUTO) 6.5 % (0.0-6.0); HEMATOCRIT 34 % (39-51); HEMOGLOBIN 11.1 g/dL (13.5-17.5); LYMPHOCYTES # (AUTO) 0.8 K/uL (0.8-4.8); LYMPHOCYTES % (AUTO) 13.7 % (20.0-44.0); MEAN CORPUSCULAR HEMOGLOBIN 32 PG (26.0-33.0); MEAN CORPUSCULAR HGB CONC 33 g/dl (31.0-36.0); MEAN CORPUSCULAR VOLUME 96 fL (80-96); MONOCYTES # (AUTO) 0.8 K/uL (0.1-1.30); MONOCYTES % (AUTO) 13.8 % (2.0-12.0); NEUTROPHILS # (AUTO) 3.7 K/uL (1.8-8.9); NEUTROPHILS % (AUTO) 65.4 % (43.0-81.0); PLATELET COUNT (AUTO) 160 K/uL (150-450); RED BLOOD CELL COUNT(AUTO) 3.54 MIL/uL (4.5-6.0); RED CELL DISTRIBUTION WIDTH 15.1 % (11.5-15.0); WHITE BLOOD COUNT (AUTO) 5.7 K/uL (4.3-11.0)
[2023-08-26 06:15] LABS: ALBUMIN 2.6 g/dL (3.4-5.0); BILIRUBIN,TOTAL 0.3 mg/dL (0.2-1.0); CALCIUM, SERUM 7.8 mg/dL (8.5-10.1); CREATININE 3.4 mg/dL (0.6-1.3); PHOSPHORUS 4.4 mg/dL (2.5-4.9); POTASSIUM 3.5 mmol/L (3.5-5.1); TOTAL PROTEIN, SERUM 6.6 g/dL (6.4-8.2)
[2023-08-26 06:17] LABS: MAGNESIUM 1.2 mg/dL (1.8-2.4)
[2023-08-26] MEDS: BLOOD SUGAR DIAGNOSTIC 1 EACH STRIP IN SCH ×4 (06:57→22:17)
[2023-08-26] MEDS: INSULIN REGULAR, HUMAN 100 UNIT/ML 3 ML VIAL SQ PRN ×5 (06:57→23:08)
[2023-08-26] MEDS: CALCIUM ACETATE 667 MG CAP/TAB PO SCH ×3 (07:55→18:13)
[2023-08-26 08:36] VITALS: BP 112/59; TEMP 98; O2SAT 98
[2023-08-26] MEDS: ASPIRIN 81 MG TAB.CHEW PO SCH (08:45)
[2023-08-26] MEDS: PREGABALIN 25 MG CAPSULE PO SCH ×2 (08:46→18:13)
[2023-08-26] MEDS: CHOLECALCIFEROL 1,000 UNIT TABLET (VIT D3) PO SCH (08:46)
[2023-08-26] MEDS: SERTRALINE HCL 50 MG TABLET PO SCH ×2 (08:46→22:15)
[2023-08-26] MEDS: CLOTRIMAZOLE 1% 15 GM TUBE TP SCH ×2 (08:46→18:30)
[2023-08-26] MEDS: THERAHONEY GEL 1.5 OZ TUBE TP SCH (08:47)
[2023-08-26] MEDS: METOPROLOL TARTRATE 25 MG TABLET PO SCH ×2 (08:47→17:00)
[2023-08-26] MEDS: APIXABAN 2.5 MG TABLET PO SCH ×2 (08:48→18:16)
[2023-08-26] MEDS ORDERED: MAGNESIUM OXIDE 400 MG TABLET PO SCH (10:00)
[2023-08-26] MEDS: HYDROCODONE/APAP 10/325MG TABLET PO PRN ×2 (10:38→18:14)
[2023-08-26] MEDS: CEFEPIME 1 GM in IV D5W 50 ML IV SCH ×2 (11:06→22:17)
[2023-08-26 16:00] VITALS: BP 103/69; TEMP 98.6; O2SAT 96
[2023-08-26 20:00] VITALS: BP 126/96; TEMP 98.4; O2SAT 95
[2023-08-26] MEDS: MAGNESIUM OXIDE 400 MG TABLET PO SCH (22:16)
[2023-08-26] MEDS: ATORVASTATIN 40 MG TABLET PO SCH (22:16)
[2023-08-27] MEDS: IV NS 0.9% 1,000 ML BAG IV PRN ×3 (01:36→17:00)
[2023-08-27] MEDS: BLOOD SUGAR DIAGNOSTIC 1 EACH STRIP IN SCH ×4 (07:01→20:54)
[2023-08-27] MEDS: INSULIN REGULAR, HUMAN 100 UNIT/ML 3 ML VIAL SQ PRN ×4 (07:02→20:54)
[2023-08-27 07:07] LABS: PTH, INTACT 87 pg/mL (15-65)
[2023-08-27 08:00] VITALS: BP 113/68; TEMP 98.2; O2SAT 97
[2023-08-27 08:43] LABS: BASOPHILS % (AUTO) 0.6 % (0.0-2.0); EOSINOPHILS # (AUTO) 0.3 K/uL (0.0-0.7); EOSINOPHILS % (AUTO) 5.8 % (0.0-6.0); HEMATOCRIT 37 % (39-51); LYMPHOCYTES # (AUTO) 0.6 K/uL (0.8-4.8); LYMPHOCYTES % (AUTO) 12.3 % (20.0-44.0); MEAN CORPUSCULAR HEMOGLOBIN 32 PG (26.0-33.0); MEAN CORPUSCULAR HGB CONC 33 g/dl (31.0-36.0); MEAN CORPUSCULAR VOLUME 97 fL (80-96); MONOCYTES # (AUTO) 0.6 K/uL (0.1-1.30); NEUTROPHILS # (AUTO) 3.6 K/uL (1.8-8.9); NEUTROPHILS % (AUTO) 70.3 % (43.0-81.0); PLATELET COUNT (AUTO) 150 K/uL (150-450); RED BLOOD CELL COUNT(AUTO) 3.77 MIL/uL (4.5-6.0); RED CELL DISTRIBUTION WIDTH 15.2 % (11.5-15.0); WHITE BLOOD COUNT (AUTO) 5.2 K/uL (4.3-11.0)
[2023-08-27] MEDS: ASPIRIN 81 MG TAB.CHEW PO SCH (08:52)
[2023-08-27] MEDS: CALCIUM ACETATE 667 MG CAP/TAB PO SCH ×3 (08:52→17:43)
[2023-08-27] MEDS: CHOLECALCIFEROL 1,000 UNIT TABLET (VIT D3) PO SCH (08:52)
[2023-08-27] MEDS: PREGABALIN 25 MG CAPSULE PO SCH ×2 (08:53→16:21)
[2023-08-27] MEDS: SERTRALINE HCL 50 MG TABLET PO SCH ×2 (08:53→20:10)
[2023-08-27] MEDS: METOPROLOL TARTRATE 25 MG TABLET PO SCH ×2 (09:00→16:20)
[2023-08-27] MEDS: APIXABAN 2.5 MG TABLET PO SCH ×2 (09:01→16:20)
[2023-08-27] MEDS: CLOTRIMAZOLE 1% 15 GM TUBE TP SCH ×2 (09:02→16:29)
[2023-08-27] MEDS: THERAHONEY GEL 1.5 OZ TUBE TP SCH (09:02)
[2023-08-27] MEDS: CEFEPIME 1 GM in IV D5W 50 ML IV SCH ×2 (09:04→21:16)
[2023-08-27 09:11] LABS: ALBUMIN 2.9 g/dL (3.4-5.0); BILIRUBIN,TOTAL 0.3 mg/dL (0.2-1.0); CALCIUM, SERUM 8.3 mg/dL (8.5-10.1); CREATININE 2.1 mg/dL (0.6-1.3); MAGNESIUM 1.4 mg/dL (1.8-2.4); PHOSPHORUS 3.6 mg/dL (2.5-4.9)
[2023-08-27] MEDS ORDERED: MAGNESIUM OXIDE 400 MG TABLET PO ONE ×2 (12:00→12:30)
[2023-08-27 12:07] LABS: *SPE A/G RATIO 0.9 (0.7-1.7); *SPE ALPHA-1-GLOBULIN 0.3 g/dL (0.0-0.4); *SPE ALPHA-2-GLOBULIN 0.9 g/dL (0.4-1.0); *SPE GLOBULIN, TOTAL 3.5 g/dL (2.2-3.9); *SPE M-SPIKE Not Observed g/dL (Not Observed); *SPE PROTEIN TOTAL 6.5 g/dL (6.0-8.5); *SPEGAMMA GLOBULIN 1.3 g/dL (0.4-1.8)
[2023-08-27] MEDS: ONDANSETRON HCL/PF 4 MG/2 ML VIAL IVP PRN ×2 (12:30→22:10)
[2023-08-27] MEDS: HYDROCODONE/APAP 10/325MG TABLET PO PRN ×2 (12:49→20:16)
[2023-08-27 16:00] VITALS: BP 109/97; TEMP 98.8; O2SAT 95
[2023-08-27 20:00] VITALS: BP 121/59; TEMP 97.3; O2SAT 98
[2023-08-27] MEDS: MAGNESIUM OXIDE 400 MG TABLET PO SCH (21:23)
[2023-08-27] MEDS: ATORVASTATIN 40 MG TABLET PO SCH (21:23)
[2023-08-28] MEDS: IV NS 0.9% 1,000 ML BAG IV PRN (00:48)
[2023-08-28] MEDS: BLOOD SUGAR DIAGNOSTIC 1 EACH STRIP IN SCH ×4 (06:17→21:25)
[2023-08-28] MEDS: INSULIN REGULAR, HUMAN 100 UNIT/ML 3 ML VIAL SQ PRN ×3 (06:18→18:12)
[2023-08-28 06:51] LABS: BASOPHILS # (AUTO) 0.1 K/uL (0.0-0.2); BASOPHILS % (AUTO) 0.9 % (0.0-2.0); EOSINOPHILS # (AUTO) 0.3 K/uL (0.0-0.7); EOSINOPHILS % (AUTO) 5.7 % (0.0-6.0); HEMATOCRIT 36 % (39-51); HEMOGLOBIN 11.4 g/dL (13.5-17.5); LYMPHOCYTES # (AUTO) 0.7 K/uL (0.8-4.8); LYMPHOCYTES % (AUTO) 12.1 % (20.0-44.0); MEAN CORPUSCULAR HEMOGLOBIN 32 PG (26.0-33.0); MEAN CORPUSCULAR HGB CONC 32 g/dl (31.0-36.0); MEAN CORPUSCULAR VOLUME 100 fL (80-96); MONOCYTES # (AUTO) 0.8 K/uL (0.1-1.30); NEUTROPHILS % (AUTO) 67.3 % (43.0-81.0); PLATELET COUNT (AUTO) 149 K/uL (150-450); RED BLOOD CELL COUNT(AUTO) 3.59 MIL/uL (4.5-6.0); RED CELL DISTRIBUTION WIDTH 15.9 % (11.5-15.0); WHITE BLOOD COUNT (AUTO) 5.9 K/uL (4.3-11.0)
[2023-08-28 07:09] LABS: ALBUMIN 2.5 g/dL (3.4-5.0); BILIRUBIN,TOTAL 0.3 mg/dL (0.2-1.0); CALCIUM, SERUM 8.1 mg/dL (8.5-10.1); CREATININE 1.5 mg/dL (0.6-1.3); MAGNESIUM 1.5 mg/dL (1.8-2.4); PHOSPHORUS 2.9 mg/dL (2.5-4.9); POTASSIUM 4.5 mmol/L (3.5-5.1); TOTAL PROTEIN, SERUM 6.7 g/dL (6.4-8.2)
[2023-08-28 07:30] VITALS: BP 123/78; TEMP 97.5; O2SAT 97
[2023-08-28] MEDS: ASPIRIN 81 MG TAB.CHEW PO SCH (08:45)
[2023-08-28] MEDS: CALCIUM ACETATE 667 MG CAP/TAB PO SCH ×3 (08:46→18:12)
[2023-08-28] MEDS: CHOLECALCIFEROL 1,000 UNIT TABLET (VIT D3) PO SCH (08:46)
[2023-08-28] MEDS: PREGABALIN 25 MG CAPSULE PO SCH ×2 (08:47→16:45)
[2023-08-28] MEDS: SERTRALINE HCL 50 MG TABLET PO SCH ×2 (08:47→21:25)
[2023-08-28] MEDS: METOPROLOL TARTRATE 25 MG TABLET PO SCH ×2 (08:49→16:46)
[2023-08-28] MEDS: CLOTRIMAZOLE 1% 15 GM TUBE TP SCH ×2 (08:49→16:49)
[2023-08-28] MEDS: THERAHONEY GEL 1.5 OZ TUBE TP SCH (08:50)
[2023-08-28] MEDS: ONDANSETRON HCL/PF 4 MG/2 ML VIAL IVP PRN ×3 (08:51→23:11)
[2023-08-28] MEDS: HYDROCODONE/APAP 10/325MG TABLET PO PRN ×2 (08:51→21:27)
[2023-08-28] MEDS: APIXABAN 2.5 MG TABLET PO SCH ×2 (08:52→16:47)
[2023-08-28] MEDS: CEFEPIME 1 GM in IV D5W 50 ML IV SCH ×2 (10:03→21:28)
[2023-08-28 16:00] VITALS: BP 101/58; TEMP 98.6; O2SAT 98
[2023-08-28] MEDS: ATORVASTATIN 40 MG TABLET PO SCH (21:25)
[2023-08-28] MEDS: MAGNESIUM OXIDE 400 MG TABLET PO SCH (21:25)
[2023-08-29] MEDS: BLOOD SUGAR DIAGNOSTIC 1 EACH STRIP IN SCH (07:26)
[2023-08-29] MEDS: CALCIUM ACETATE 667 MG CAP/TAB PO SCH (08:23)
[2023-08-29] MEDS: Magnesium 1GM/D5W 100ML PREMIX 100 ML IV SCH ×2 (08:25→09:30)
[2023-08-29] MEDS: SERTRALINE HCL 50 MG TABLET PO SCH (08:27)
[2023-08-29] MEDS: CHOLECALCIFEROL 1,000 UNIT TABLET (VIT D3) PO SCH (08:27)
[2023-08-29] MEDS: ASPIRIN 81 MG TAB.CHEW PO SCH (08:27)
[2023-08-29 08:28] VITALS: BP 110/71
[2023-08-29] MEDS: CLOTRIMAZOLE 1% 15 GM TUBE TP SCH (08:28)
[2023-08-29] MEDS: PREGABALIN 25 MG CAPSULE PO SCH (08:28)
[2023-08-29] MEDS: METOPROLOL TARTRATE 25 MG TABLET PO SCH (08:28)
[2023-08-29] MEDS: THERAHONEY GEL 1.5 OZ TUBE TP SCH (08:29)
[2023-08-29] MEDS: APIXABAN 2.5 MG TABLET PO SCH (08:30)
[2023-08-29] MEDS: HYDROCODONE/APAP 10/325MG TABLET PO PRN (09:33)
[2023-08-29] MEDS: ONDANSETRON HCL/PF 4 MG/2 ML VIAL IVP PRN (09:34)
[2023-08-29] MEDS: CEFEPIME 1 GM in IV D5W 50 ML IV SCH (10:00)
== END 2023-08-29 10:20 | disposition home health service (06) | DRG 166 ==
LOC: ER 16:55 → TELE 21:05 → MED 08-25 09:56
PROVIDERS: ADMIT Nurse Practitioner Acute Care; ATTEND Nurse Practitioner Family
PROC: 0JBQ0ZZ Excision of Right Foot Subcutaneous Tissue and Fascia, Open Approach (ICD-10-PCS; principal; 2023-08-24)
DX: M94.0 Chondrocostal junction syndrome [Tietze] (principal); N17.0 Acute kidney failure with tubular necrosis; E44.0 Moderate protein-calorie malnutrition; I48.20 Chronic atrial fibrillation, unspecified; I13.0 Hypertensive heart and chronic kidney disease with heart failure and stage 1 through stage 4 chronic kidney disease, or unspecified chronic kidney disease; Z68.41 Body mass index [BMI] 40.0-44.9, adult; N18.9 Chronic kidney disease, unspecified; E11.621 Type 2 diabetes mellitus with foot ulcer; E87.6 Hypokalemia; I50.9 Heart failure, unspecified; L97.519 Non-pressure chronic ulcer of other part of right foot with unspecified severity; E11.42 Type 2 diabetes mellitus with diabetic polyneuropathy; E11.22 Type 2 diabetes mellitus with diabetic chronic kidney disease; Z93.3 Colostomy status; Z90.49 Acquired absence of other specified parts of digestive tract; Z79.01 Long term (current) use of anticoagulants; Z79.51 Long term (current) use of inhaled steroids; Z79.899 Other long term (current) drug therapy; E88.09 Other disorders of plasma-protein metabolism, not elsewhere classified; E78.5 Hyperlipidemia, unspecified; E83.42 Hypomagnesemia; E66.9 Obesity, unspecified; G89.4 Chronic pain syndrome; Z87.440 Personal history of urinary (tract) infections; N13.9 Obstructive and reflux uropathy, unspecified; Z86.19 Personal history of other infectious and parasitic diseases
CPT/HCPCS: 36415; 70450-TC; 71045-TC; 76770-TC; 80048-TC; 80053-TC; 80076-TC; 81001; 82550-TC; 82570-TC; 82962-TC; 83605-TC; 83735-TC; 83970; 84100-TC; 84155; 84165; 84300-TC; 84484-TC; 85025-TC; 85378-TC; 87040-TC; 87086-TC; A4223; G0378; J0692; J1170; J1815; J2270; J2405; J3475; J3490; J7030; J7050; J7060

== ENCOUNTER 2023-09-08 21:08 | Inpatient (IN) | payer MEDICARE, OTHER ==
[~2023-09-08] VITALS: Ht 182.9 cm; Wt 133.4 kg
[~2023-09-08 21:08] MED LIST changes: -LEVO750T46 PO; -SULF1TAB48 PO
[2023-09-08 21:45] LABS: BASOPHILS % (AUTO) 0.5 % (0.0-2.0); EOSINOPHILS # (AUTO) 0.6 K/uL (0.0-0.7); EOSINOPHILS % (AUTO) 7.1 % (0.0-6.0); HEMATOCRIT 36 % (39-51); HEMOGLOBIN 11.7 g/dL (13.5-17.5); LYMPHOCYTES # (AUTO) 0.8 K/uL (0.8-4.8); LYMPHOCYTES % (AUTO) 9.7 % (20.0-44.0); MEAN CORPUSCULAR HEMOGLOBIN 32 PG (26.0-33.0); MEAN CORPUSCULAR HGB CONC 33 g/dl (31.0-36.0); MEAN CORPUSCULAR VOLUME 95 fL (80-96); MONOCYTES # (AUTO) 1.1 K/uL (0.1-1.30); MONOCYTES % (AUTO) 13.2 % (2.0-12.0); NEUTROPHILS # (AUTO) 5.9 K/uL (1.8-8.9); NEUTROPHILS % (AUTO) 69.5 % (43.0-81.0); PLATELET COUNT (AUTO) 246 K/uL (150-450); RED BLOOD CELL COUNT(AUTO) 3.72 MIL/uL (4.5-6.0); RED CELL DISTRIBUTION WIDTH 15.1 % (11.5-15.0); WHITE BLOOD COUNT (AUTO) 8.5 K/uL (4.3-11.0)
[2023-09-08 21:53] LABS: CALCIUM, SERUM 8.6 mg/dL (8.5-10.1); CARBON DIOXIDE 24 mmol/L (21-32); CHLORIDE 103 mmol/L (98-107); CREATININE 3.5 mg/dL (0.6-1.3); GLUCOSE 96 mg/dL (74-106); POTASSIUM 4.8 mmol/L (3.5-5.1); SODIUM SERUM 138 mmol/L (136-145)
[2023-09-08 21:56] LABS: UREA NITROGEN, BLOOD 90 mg/dL (7-18)
[2023-09-08] MEDS ORDERED: MORPHINE SULFATE INJ 2 MG/ML DISP.SYRIN IV ONE (22:30)
[2023-09-08] MEDS ORDERED: ONDANSETRON HCL/PF 4 MG/2 ML VIAL IV ONE (22:30)
[2023-09-08] MEDS ORDERED: IV NS 0.9% 500 ML BAG IV ONE (22:30)
[2023-09-08] MEDS ORDERED: ASPIRIN 325 MG TABLET PO ONE (22:30)
[2023-09-08] MEDS ORDERED: ONDANSETRON HCL/PF 4 MG/2 ML VIAL ONE (22:33)
[2023-09-08] MEDS ORDERED: ASPIRIN 325 MG TABLET ONE (22:34)
[2023-09-08] MEDS ORDERED: hydrALAZINE HCL IV 20 MG VIAL IV PRN (23:30)
[2023-09-08] MEDS ORDERED: IV NS 0.9% 1,000 ML IV SCH (23:30)
[2023-09-08] MEDS ORDERED: ACETAMINOPHEN 325 MG TABLET PO PRN (23:30)
[2023-09-08] MEDS ORDERED: ONDANSETRON HCL/PF 4 MG/2 ML VIAL IVP PRN (23:30)
[2023-09-08] MEDS ORDERED: DEXTROSE 50%-WATER 50 ML DISP.SYRIN IV PRN (23:30)
[2023-09-09 00:25] VITALS: BP 114/78; TEMP 97.7; O2SAT 98
[2023-09-09] MEDS ORDERED: ALBUTEROL FS 2.5 MG/3 ML VIAL.NEB NEB PRN (00:30)
[2023-09-09] MEDS: MORPHINE SULFATE INJ 2 MG/ML DISP.SYRIN IV PRN ×5 (01:19→22:22)
[2023-09-09 05:03] VITALS: BP 102/80; TEMP 97.8; O2SAT 97
[2023-09-09] MEDS: BLOOD SUGAR DIAGNOSTIC 1 EACH STRIP IN SCH ×4 (06:33→22:22)
[2023-09-09 06:58] LABS: BASOPHILS # (AUTO) 0.1 K/uL (0.0-0.2); BASOPHILS % (AUTO) 0.8 % (0.0-2.0); EOSINOPHILS # (AUTO) 0.6 K/uL (0.0-0.7); EOSINOPHILS % (AUTO) 9.1 % (0.0-6.0); HEMATOCRIT 34 % (39-51); HEMOGLOBIN 11.2 g/dL (13.5-17.5); LYMPHOCYTES # (AUTO) 1.1 K/uL (0.8-4.8); LYMPHOCYTES % (AUTO) 15.4 % (20.0-44.0); MEAN CORPUSCULAR HEMOGLOBIN 32 PG (26.0-33.0); MEAN CORPUSCULAR HGB CONC 33 g/dl (31.0-36.0); MEAN CORPUSCULAR VOLUME 96 fL (80-96); MONOCYTES # (AUTO) 0.9 K/uL (0.1-1.30); MONOCYTES % (AUTO) 13.3 % (2.0-12.0); NEUTROPHILS # (AUTO) 4.3 K/uL (1.8-8.9); NEUTROPHILS % (AUTO) 61.4 % (43.0-81.0); PLATELET COUNT (AUTO) 221 K/uL (150-450); RED BLOOD CELL COUNT(AUTO) 3.55 MIL/uL (4.5-6.0); RED CELL DISTRIBUTION WIDTH 14.9 % (11.5-15.0)
[2023-09-09 07:53] LABS: ALBUMIN 2.8 g/dL (3.4-5.0); BILIRUBIN,TOTAL 0.2 mg/dL (0.2-1.0); CALCIUM, SERUM 8.4 mg/dL (8.5-10.1); CREATININE 2.8 mg/dL (0.6-1.3); MAGNESIUM 1.5 mg/dL (1.8-2.4); PHOSPHORUS 4.6 mg/dL (2.5-4.9); POTASSIUM 4.4 mmol/L (3.5-5.1); TOTAL PROTEIN, SERUM 7.3 g/dL (6.4-8.2)
[2023-09-09 08:25] VITALS: BP 119/76; TEMP 97.7; O2SAT 95
[2023-09-09] MEDS: CHOLECALCIFEROL 1,000 UNIT TABLET (VIT D3) PO SCH (09:52)
[2023-09-09] MEDS: SERTRALINE HCL 50 MG TABLET PO SCH ×2 (09:52→21:51)
[2023-09-09] MEDS: CALCIUM ACETATE 667 MG CAP/TAB PO SCH ×3 (09:52→17:41)
[2023-09-09] MEDS: APIXABAN 5 MG TABLET PO SCH ×2 (09:54→17:44)
[2023-09-09] MEDS: PREGABALIN 25 MG CAPSULE PO SCH ×2 (09:58→17:41)
[2023-09-09] MEDS: METOPROLOL TARTRATE 25 MG TABLET PO SCH ×2 (10:07→17:43)
[2023-09-09] MEDS ORDERED: Magnesium 1GM/D5W 100ML PREMIX PIGGYBACK IV ONE (11:00)
[2023-09-09] MEDS ORDERED: MAGNESIUM OXIDE 400 MG TABLET PO ONE (11:00)
[2023-09-09] MEDS: Magnesium 1GM/D5W 100ML PREMIX 100 ML IV SCH ×2 (11:55→13:08)
[2023-09-09 13:06] VITALS: BP 118/74; TEMP 97.5; O2SAT 98
[2023-09-09 14:43] LABS: APPEARANCE,URINE CLEAR (CLEAR); BILIRUBIN,URINE NEGATIVE (NEGATIVE); BLOOD, URINE NEGATIVE Ery/uL (NEGATIVE); COLOR,URINE YELLOW (YELLOW); KETONES,URINE NEGATIVE (NEGATIVE); LEUKOCYTE ESTERASE ,URINE NEGATIVE (NEGATIVE); NITRITE, URINE NEGATIVE (NEGATIVE); PH,URINE 5.5 (5.0-8.0); PROTEIN,URINE NEGATIVE (NEGATIVE); UGLUCOSE NEGATIVE (NEGATIVE); UROBILINOGEN,URINE 0.2 EU/dL (0.2)
[2023-09-09 15:01] LABS: CREATININE, URINE 150.3 MG/DL (30.0-125.0); URINE SODIUM, RANDOM < 5 mmol/l (40-220); URINE TOTAL PROTEIN 22.7 mg/dL (0-11.9)
[2023-09-09 16:05] VITALS: BP 124/83; TEMP 98.3; O2SAT 94
[2023-09-09] MEDS: ALPRAZOLAM 0.25 MG TABLET PO PRN (17:46)
[2023-09-09 18:54] LABS: EOSINOPHIL,URINE None Seen
[2023-09-09 20:00] VITALS: BP 110/75; TEMP 98.1; O2SAT 93
[2023-09-09] MEDS: ATORVASTATIN 40 MG TABLET PO SCH (21:51)
[2023-09-10] VITALS (7 sets, daily range): BP systolic 110–121; BP diastolic 55–76; TEMP 97.5–98.4; O2SAT 94–99
[2023-09-10] MEDS: IV NS 0.9% 1,000 ML IV PRN (00:43)
[2023-09-10] MEDS: MORPHINE SULFATE INJ 2 MG/ML DISP.SYRIN IV PRN ×4 (02:38→22:59)
[2023-09-10] MEDS: BLOOD SUGAR DIAGNOSTIC 1 EACH STRIP IN SCH ×4 (06:42→21:12)
[2023-09-10 07:19] LABS: BASOPHILS % (AUTO) 0.7 % (0.0-2.0); EOSINOPHILS # (AUTO) 0.6 K/uL (0.0-0.7); EOSINOPHILS % (AUTO) 9.8 % (0.0-6.0); HEMATOCRIT 36 % (39-51); HEMOGLOBIN 11.2 g/dL (13.5-17.5); LYMPHOCYTES % (AUTO) 16.8 % (20.0-44.0); MEAN CORPUSCULAR HEMOGLOBIN 32 PG (26.0-33.0); MEAN CORPUSCULAR HGB CONC 32 g/dl (31.0-36.0); MEAN CORPUSCULAR VOLUME 100 fL (80-96); MONOCYTES # (AUTO) 0.7 K/uL (0.1-1.30); MONOCYTES % (AUTO) 11.8 % (2.0-12.0); NEUTROPHILS # (AUTO) 3.8 K/uL (1.8-8.9); NEUTROPHILS % (AUTO) 60.9 % (43.0-81.0); PLATELET COUNT (AUTO) 211 K/uL (150-450); RED BLOOD CELL COUNT(AUTO) 3.56 MIL/uL (4.5-6.0); RED CELL DISTRIBUTION WIDTH 15.5 % (11.5-15.0); WHITE BLOOD COUNT (AUTO) 6.2 K/uL (4.3-11.0)
[2023-09-10] MEDS: ALPRAZOLAM 0.25 MG TABLET PO PRN ×2 (07:24→21:16)
[2023-09-10 07:52] LABS: ALBUMIN 2.6 g/dL (3.4-5.0); BILIRUBIN,TOTAL 0.2 mg/dL (0.2-1.0); CALCIUM, SERUM 8.7 mg/dL (8.5-10.1); MAGNESIUM 2.1 mg/dL (1.8-2.4); PHOSPHORUS 4.7 mg/dL (2.5-4.9); POTASSIUM 4.5 mmol/L (3.5-5.1); TOTAL PROTEIN, SERUM 6.8 g/dL (6.4-8.2)
[2023-09-10] MEDS: CHOLECALCIFEROL 1,000 UNIT TABLET (VIT D3) PO SCH (08:13)
[2023-09-10] MEDS: PREGABALIN 25 MG CAPSULE PO SCH ×2 (08:13→16:58)
[2023-09-10] MEDS: SERTRALINE HCL 50 MG TABLET PO SCH ×2 (08:13→21:03)
[2023-09-10] MEDS: CALCIUM ACETATE 667 MG CAP/TAB PO SCH ×3 (08:13→16:58)
[2023-09-10] MEDS: METOPROLOL TARTRATE 25 MG TABLET PO SCH ×2 (08:14→16:58)
[2023-09-10] MEDS: APIXABAN 5 MG TABLET PO SCH ×2 (08:16→16:58)
[2023-09-10] MEDS ORDERED: Z GUARD REMEDY 4 OZ OINT TP PRN (10:00)
[2023-09-10] MEDS: ATORVASTATIN 40 MG TABLET PO SCH (21:06)
[2023-09-10] MEDS: INSULIN REGULAR, HUMAN 100 UNIT/ML 3 ML VIAL SQ PRN (21:13)
[2023-09-11] MEDS: MORPHINE SULFATE INJ 2 MG/ML DISP.SYRIN IV PRN ×4 (03:05→20:31)
[2023-09-11] MEDS: IV NS 0.9% 1,000 ML IV PRN (03:17)
[2023-09-11] MEDS: INSULIN REGULAR, HUMAN 100 UNIT/ML 3 ML VIAL SQ PRN ×3 (05:19→17:05)
[2023-09-11] MEDS: BLOOD SUGAR DIAGNOSTIC 1 EACH STRIP IN SCH ×4 (05:21→21:35)
[2023-09-11 05:58] LABS: BASOPHILS % (AUTO) 0.2 % (0.0-2.0); EOSINOPHILS # (AUTO) 0.6 K/uL (0.0-0.7); EOSINOPHILS % (AUTO) 8.6 % (0.0-6.0); HEMATOCRIT 33 % (39-51); HEMOGLOBIN 10.8 g/dL (13.5-17.5); LYMPHOCYTES # (AUTO) 0.9 K/uL (0.8-4.8); LYMPHOCYTES % (AUTO) 12.8 % (20.0-44.0); MEAN CORPUSCULAR HEMOGLOBIN 31 PG (26.0-33.0); MEAN CORPUSCULAR HGB CONC 32 g/dl (31.0-36.0); MEAN CORPUSCULAR VOLUME 96 fL (80-96); MONOCYTES # (AUTO) 0.7 K/uL (0.1-1.30); MONOCYTES % (AUTO) 9.5 % (2.0-12.0); NEUTROPHILS # (AUTO) 4.8 K/uL (1.8-8.9); NEUTROPHILS % (AUTO) 68.9 % (43.0-81.0); PLATELET COUNT (AUTO) 214 K/uL (150-450); RED BLOOD CELL COUNT(AUTO) 3.47 MIL/uL (4.5-6.0); RED CELL DISTRIBUTION WIDTH 14.8 % (11.5-15.0); WHITE BLOOD COUNT (AUTO) 6.9 K/uL (4.3-11.0)
[2023-09-11 06:07] LABS: PTH, INTACT 32 pg/mL (15-65)
[2023-09-11 06:10] LABS: CALCIUM, SERUM 8.8 mg/dL (8.5-10.1); CREATININE 1.6 mg/dL (0.6-1.3); MAGNESIUM 1.6 mg/dL (1.8-2.4); PHOSPHORUS 4.3 mg/dL (2.5-4.9); POTASSIUM 4.2 mmol/L (3.5-5.1)
[2023-09-11 08:00] VITALS: BP 117/57; TEMP 97.7; O2SAT 97
[2023-09-11] MEDS: PREGABALIN 25 MG CAPSULE PO SCH ×2 (08:23→16:29)
[2023-09-11] MEDS: CALCIUM ACETATE 667 MG CAP/TAB PO SCH ×3 (08:23→17:31)
[2023-09-11] MEDS: CHOLECALCIFEROL 1,000 UNIT TABLET (VIT D3) PO SCH (08:23)
[2023-09-11] MEDS: APIXABAN 5 MG TABLET PO SCH ×2 (08:25→16:30)
[2023-09-11] MEDS: METOPROLOL TARTRATE 25 MG TABLET PO SCH ×2 (08:28→16:35)
[2023-09-11] MEDS: SERTRALINE HCL 50 MG TABLET PO SCH ×2 (08:28→20:32)
[2023-09-11] MEDS: THERAHONEY GEL 1.5 OZ TUBE TP SCH (08:32)
[2023-09-11 09:08] LABS: *SPE A/G RATIO 0.9 (0.7-1.7); *SPE ALPHA-1-GLOBULIN 0.2 g/dL (0.0-0.4); *SPE ALPHA-2-GLOBULIN 0.8 g/dL (0.4-1.0); *SPE GLOBULIN, TOTAL 3.5 g/dL (2.2-3.9); *SPE M-SPIKE Not Observed g/dL (Not Observed); *SPE PROTEIN TOTAL 6.5 g/dL (6.0-8.5); *SPEGAMMA GLOBULIN 1.4 g/dL (0.4-1.8)
[2023-09-11] MEDS ORDERED: MAGNESIUM OXIDE 400 MG TABLET PO ONE (10:00)
[2023-09-11 16:00] VITALS: BP 135/79; TEMP 97.5; O2SAT 99
[2023-09-11 20:25] VITALS: BP 129/67; TEMP 99.3; O2SAT 98
[2023-09-11] MEDS: ATORVASTATIN 40 MG TABLET PO SCH (21:00)
[2023-09-12] MEDS: MORPHINE SULFATE INJ 2 MG/ML DISP.SYRIN IV PRN ×3 (04:37→13:51)
[2023-09-12 06:03] LABS: BASOPHILS % (AUTO) 0.5 % (0.0-2.0); EOSINOPHILS # (AUTO) 0.6 K/uL (0.0-0.7); EOSINOPHILS % (AUTO) 8.5 % (0.0-6.0); HEMATOCRIT 33 % (39-51); HEMOGLOBIN 10.8 g/dL (13.5-17.5); LYMPHOCYTES % (AUTO) 13.4 % (20.0-44.0); MEAN CORPUSCULAR HEMOGLOBIN 32 PG (26.0-33.0); MEAN CORPUSCULAR HGB CONC 33 g/dl (31.0-36.0); MEAN CORPUSCULAR VOLUME 97 fL (80-96); MONOCYTES # (AUTO) 0.8 K/uL (0.1-1.30); MONOCYTES % (AUTO) 11.5 % (2.0-12.0); NEUTROPHILS # (AUTO) 4.7 K/uL (1.8-8.9); NEUTROPHILS % (AUTO) 66.1 % (43.0-81.0); PLATELET COUNT (AUTO) 193 K/uL (150-450); RED BLOOD CELL COUNT(AUTO) 3.41 MIL/uL (4.5-6.0); RED CELL DISTRIBUTION WIDTH 14.9 % (11.5-15.0); WHITE BLOOD COUNT (AUTO) 7.1 K/uL (4.3-11.0)
[2023-09-12 06:08] LABS: POTASSIUM 4.6 mmol/L (3.5-5.1)
[2023-09-12 06:09] LABS: CREATININE 1.4 mg/dL (0.6-1.3); MAGNESIUM 1.7 mg/dL (1.8-2.4)
[2023-09-12] MEDS: BLOOD SUGAR DIAGNOSTIC 1 EACH STRIP IN SCH ×2 (06:34→11:34)
[2023-09-12 07:00] VITALS: BP 110/67; TEMP 98.2; O2SAT 95
[2023-09-12] MEDS: PREGABALIN 25 MG CAPSULE PO SCH (08:13)
[2023-09-12] MEDS: SERTRALINE HCL 50 MG TABLET PO SCH (08:14)
[2023-09-12] MEDS: CHOLECALCIFEROL 1,000 UNIT TABLET (VIT D3) PO SCH (08:14)
[2023-09-12] MEDS: APIXABAN 5 MG TABLET PO SCH (08:15)
[2023-09-12 08:17] VITALS: BP 110/67
[2023-09-12] MEDS: METOPROLOL TARTRATE 25 MG TABLET PO SCH (08:17)
[2023-09-12] MEDS: CALCIUM ACETATE 667 MG CAP/TAB PO SCH ×2 (08:23→12:22)
[2023-09-12] MEDS: THERAHONEY GEL 1.5 OZ TUBE TP SCH (08:24)
[2023-09-12] MEDS ORDERED: MAGNESIUM OXIDE 400 MG TABLET PO ONE (08:30)
[2023-09-12] MEDS ORDERED: COLL30OI TP (12:38)
== END 2023-09-12 15:15 | disposition home or self-care (01) | DRG 674 ==
LOC: ER 21:09 → TELE 09-09 00:07 → MED 09-10 14:43
PROVIDERS: ADMIT Internal Medicine; ATTEND Nurse Practitioner Acute Care
PROC: 0JBQ0ZZ Excision of Right Foot Subcutaneous Tissue and Fascia, Open Approach (ICD-10-PCS; principal; 2023-09-10)
DX: N17.0 Acute kidney failure with tubular necrosis (principal); D68.69 Other thrombophilia; I13.0 Hypertensive heart and chronic kidney disease with heart failure and stage 1 through stage 4 chronic kidney disease, or unspecified chronic kidney disease; I50.32 Chronic diastolic (congestive) heart failure; I48.91 Unspecified atrial fibrillation; N18.9 Chronic kidney disease, unspecified; E11.22 Type 2 diabetes mellitus with diabetic chronic kidney disease; E11.621 Type 2 diabetes mellitus with foot ulcer; L97.519 Non-pressure chronic ulcer of other part of right foot with unspecified severity; D64.9 Anemia, unspecified; E78.5 Hyperlipidemia, unspecified; E66.01 Morbid (severe) obesity due to excess calories; E83.42 Hypomagnesemia; F41.9 Anxiety disorder, unspecified; G89.4 Chronic pain syndrome; Z79.01 Long term (current) use of anticoagulants; Z90.49 Acquired absence of other specified parts of digestive tract; Z93.3 Colostomy status; M89.8X9 Other specified disorders of bone, unspecified site; I25.10 Atherosclerotic heart disease of native coronary artery without angina pectoris; E11.42 Type 2 diabetes mellitus with diabetic polyneuropathy; E86.9 Volume depletion, unspecified; Z68.39 Body mass index [BMI] 39.0-39.9, adult
CPT/HCPCS: 36415; 71045-TC; 80048-TC; 80053-TC; 82550-TC; 82570-TC; 82962-TC; 83735-TC; 83970; 84100-TC; 84155; 84165; 84300-TC; 84484-TC; 85025-TC; 93307-TC; A4223; G0378; J1815; J2270; J2405; J3475; J7030; J7040

== ENCOUNTER 2023-09-20 09:59 | Inpatient (IN) | payer MEDICARE, OTHER ==
[~2023-09-20] VITALS: Ht 182.9 cm; Wt 141.1 kg
[~2023-09-20 09:59] MED LIST changes: +COLL30OI TP
[2023-09-20] MEDS ORDERED: COLL30OI TP (10:33)
[2023-09-20 10:36] LABS: CALCIUM, SERUM 9.2 mg/dL (8.5-10.1); CARBON DIOXIDE 31 mmol/L (21-32); CHLORIDE 102 mmol/L (98-107); CREATININE 2.4 mg/dL (0.6-1.3); GLUCOSE 105 mg/dL (74-106); SODIUM SERUM 138 mmol/L (136-145); UREA NITROGEN, BLOOD 34 mg/dL (7-18)
[2023-09-20 10:43] LABS: ALANINE AMINOTRANSFERASE 26 U/L (12-78); ALKALINE PHOSPHATASE 61 U/L (46-116); ASPARTATE AMINOTRANSFERASE 16 U/L (15-37); BILIRUBIN,DIRECT 0.1 mg/dL (0.0-0.2); BILIRUBIN,TOTAL 0.4 mg/dL (0.2-1.0); TOTAL PROTEIN, SERUM 8.1 g/dL (6.4-8.2)
[2023-09-20 10:44] LABS: INR 1.14 (0.91-1.10); PARTIAL THROMBOPLASTIN TIME 31.4 SEC (24.3-34.3); POTASSIUM 6.6 mmol/L (3.5-5.1)
[2023-09-20] MEDS ORDERED: ALBUTEROL FS 2.5 MG/3 ML VIAL.NEB NEB ONE (11:00)
[2023-09-20] MEDS ORDERED: INSULIN REGULAR, HUMAN 100 UNIT/ML 10 ML VIAL IV ONE (11:00)
[2023-09-20] MEDS ORDERED: DEXTROSE 50%-WATER 50 ML DISP.SYRIN IV ONE (11:00)
[2023-09-20] MEDS ORDERED: SODIUM BICARBONATE SYR 50 MEQ/50 ML DISP.SYRIN IV ONE (11:00)
[2023-09-20 11:16] LABS: BASOPHILS % (AUTO) 0.6 % (0.0-2.0); EOSINOPHILS # (AUTO) 0.3 K/uL (0.0-0.7); EOSINOPHILS % (AUTO) 4.1 % (0.0-6.0); HEMATOCRIT 35 % (39-51); HEMOGLOBIN 11.5 g/dL (13.5-17.5); LYMPHOCYTES # (AUTO) 0.6 K/uL (0.8-4.8); MEAN CORPUSCULAR HEMOGLOBIN 32 PG (26.0-33.0); MEAN CORPUSCULAR HGB CONC 33 g/dl (31.0-36.0); MEAN CORPUSCULAR VOLUME 97 fL (80-96); MONOCYTES % (AUTO) 12.9 % (2.0-12.0); NEUTROPHILS % (AUTO) 74.4 % (43.0-81.0); PLATELET COUNT (AUTO) 230 K/uL (150-450)
[2023-09-20] MEDS ORDERED: INSULIN REGULAR, HUMAN 100 UNIT/ML 10 ML VIAL ONE (11:33)
[2023-09-20] MEDS ORDERED: SODIUM BICARBONATE SYR 50 MEQ/50 ML DISP.SYRIN ONE (11:33)
[2023-09-20] MEDS ORDERED: DEXTROSE 50%-WATER 50 ML DISP.SYRIN ONE (11:33)
[2023-09-20] MEDS ORDERED: ALBUTEROL FS 2.5 MG/3 ML VIAL.NEB ONE (11:53)
[2023-09-20 11:59] VITALS: O2SAT 97
[2023-09-20 12:30] VITALS: O2SAT 99
[2023-09-20] MEDS ORDERED: ZOLPIDEM TARTRATE 5 MG TABLET PO PRN ×2 (13:00)
[2023-09-20] MEDS ORDERED: ACETAMINOPHEN 325 MG TABLET PO PRN ×2 (13:00)
[2023-09-20] MEDS ORDERED: HYDROCODONE/APAP 10/325MG TABLET PO PRN (13:00)
[2023-09-20] MEDS ORDERED: Z GUARD REMEDY 4 OZ OINT TP PRN ×2 (13:00)
[2023-09-20] MEDS ORDERED: ONDANSETRON HCL/PF 4 MG/2 ML VIAL IVP PRN (13:00)
[2023-09-20] MEDS ORDERED: MAG HYDROX/AL HYDROX/SIMETH 30 ML UDC PO PRN ×2 (13:00)
[2023-09-20] MEDS ORDERED: ENOXAPARIN SODIUM 30 MG/0.3 ML DISP.SYRIN SQ SCH (13:00)
[2023-09-20] MEDS ORDERED: MAGNESIUM HYDROXIDE 30 ML UDC PO PRN ×2 (13:00)
[2023-09-20] MEDS ORDERED: SODIUM POLYSTYRENE SULFONATE 15 G/60 ML BOTTLE PO ONE (13:00)
[2023-09-20] MEDS ORDERED: ALBUTEROL FS 2.5 MG/0.5 ML VIAL.NEB NEB PRN (13:30)
[2023-09-20] MEDS: LORAZEPAM 1 MG TABLET PO PRN (15:05)
[2023-09-20] MEDS: PREGABALIN 25 MG CAPSULE PO SCH (16:23)
[2023-09-20] MEDS: APIXABAN 5 MG TABLET PO SCH (16:24)
[2023-09-20] MEDS: HYDROCODONE/APAP 5/325MG TABLET PO PRN ×2 (16:24→23:08)
[2023-09-20] MEDS: METOPROLOL TARTRATE 25 MG TABLET PO SCH (16:25)
[2023-09-20 21:01] VITALS: BP 124/74; TEMP 99.3; O2SAT 97
[2023-09-20] MEDS: SERTRALINE HCL 50 MG TABLET PO SCH (21:08)
[2023-09-20] MEDS: ATORVASTATIN 40 MG TABLET PO SCH (21:08)
[2023-09-21] MEDS: ONDANSETRON HCL/PF 4 MG/2 ML VIAL IVP PRN ×3 (01:14→22:01)
[2023-09-21 04:38] VITALS: BP 109/69; TEMP 98.2; O2SAT 97
[2023-09-21 07:00] VITALS: BP 135/89; TEMP 98.1; O2SAT 95
[2023-09-21 07:32] LABS: BASOPHILS % (AUTO) 0.6 % (0.0-2.0); EOSINOPHILS # (AUTO) 0.4 K/uL (0.0-0.7); EOSINOPHILS % (AUTO) 5.8 % (0.0-6.0); HEMATOCRIT 32 % (39-51); HEMOGLOBIN 10.6 g/dL (13.5-17.5); LYMPHOCYTES % (AUTO) 13.3 % (20.0-44.0); MEAN CORPUSCULAR HEMOGLOBIN 32 PG (26.0-33.0); MEAN CORPUSCULAR HGB CONC 33 g/dl (31.0-36.0); MEAN CORPUSCULAR VOLUME 97 fL (80-96); MONOCYTES # (AUTO) 0.9 K/uL (0.1-1.30); NEUTROPHILS % (AUTO) 68.3 % (43.0-81.0); PLATELET COUNT (AUTO) 203 K/uL (150-450); RED BLOOD CELL COUNT(AUTO) 3.34 MIL/uL (4.5-6.0); RED CELL DISTRIBUTION WIDTH 15.3 % (11.5-15.0); WHITE BLOOD COUNT (AUTO) 7.3 K/uL (4.3-11.0)
[2023-09-21 07:52] LABS: CALCIUM, SERUM 8.8 mg/dL (8.5-10.1); CREATININE 2.4 mg/dL (0.6-1.3); MAGNESIUM 1.5 mg/dL (1.8-2.4); PHOSPHORUS 4.9 mg/dL (2.5-4.9)
[2023-09-21] MEDS: PANTOPRAZOLE 40 MG TABLET.DR PO SCH (08:07)
[2023-09-21] MEDS ORDERED: ENOXAPARIN SODIUM 30 MG/0.3 ML DISP.SYRIN SQ SCH (09:00)
[2023-09-21] MEDS: CHOLECALCIFEROL 1,000 UNIT TABLET (VIT D3) PO SCH (09:19)
[2023-09-21] MEDS: PREGABALIN 25 MG CAPSULE PO SCH ×2 (09:19→18:42)
[2023-09-21] MEDS: SERTRALINE HCL 50 MG TABLET PO SCH ×2 (09:19→22:00)
[2023-09-21] MEDS: APIXABAN 5 MG TABLET PO SCH ×2 (09:19→17:23)
[2023-09-21] MEDS: METOPROLOL TARTRATE 25 MG TABLET PO SCH ×2 (09:20→17:25)
[2023-09-21] MEDS: LORAZEPAM 1 MG TABLET PO PRN (09:22)
[2023-09-21] MEDS: THERAHONEY GEL 1.5 OZ TUBE TP SCH (09:25)
[2023-09-21] MEDS: HYDROCODONE/APAP 5/325MG TABLET PO PRN ×3 (10:33→23:47)
[2023-09-21] MEDS ORDERED: MAGNESIUM OXIDE 400 MG TABLET PO ONE (11:00)
[2023-09-21 12:00] VITALS: BP 127/75; TEMP 98; O2SAT 95
[2023-09-21] MEDS: IV NS 0.9% 1,000 ML IV PRN ×2 (12:34→15:27)
[2023-09-21 13:53] LABS: APPEARANCE,URINE CLEAR (CLEAR); BILIRUBIN,URINE NEGATIVE (NEGATIVE); BLOOD, URINE NEGATIVE Ery/uL (NEGATIVE); COLOR,URINE YELLOW (YELLOW); KETONES,URINE NEGATIVE (NEGATIVE); LEUKOCYTE ESTERASE ,URINE NEGATIVE (NEGATIVE); NITRITE, URINE NEGATIVE (NEGATIVE); PROTEIN,URINE 1+ mg/dl (NEGATIVE); UGLUCOSE NEGATIVE (NEGATIVE); UROBILINOGEN,URINE 0.2 EU/dL (0.2)
[2023-09-21 14:04] LABS: EOSINOPHIL,URINE None Seen
[2023-09-21 16:00] VITALS: BP 115/71; TEMP 97.9; O2SAT 95
[2023-09-21 20:00] VITALS: BP 114/77; TEMP 98.2; O2SAT 95
[2023-09-21] MEDS: ATORVASTATIN 40 MG TABLET PO SCH (22:00)
[2023-09-22] VITALS: BP 107/78; TEMP 98.1; O2SAT 96
[2023-09-22 02:50] LABS: CREATININE, URINE 176.7 MG/DL (30.0-125.0); URINE SODIUM, RANDOM < 5 mmol/l (40-220); URINE TOTAL PROTEIN 61.6 mg/dL (0-11.9)
[2023-09-22 04:00] VITALS: BP 118/63; TEMP 98.2; O2SAT 95
[2023-09-22 07:30] LABS: BASOPHILS % (AUTO) 0.5 % (0.0-2.0); EOSINOPHILS # (AUTO) 0.5 K/uL (0.0-0.7); EOSINOPHILS % (AUTO) 6.2 % (0.0-6.0); HEMATOCRIT 33 % (39-51); HEMOGLOBIN 10.4 g/dL (13.5-17.5); LYMPHOCYTES # (AUTO) 0.9 K/uL (0.8-4.8); MEAN CORPUSCULAR HEMOGLOBIN 32 PG (26.0-33.0); MEAN CORPUSCULAR HGB CONC 32 g/dl (31.0-36.0); MEAN CORPUSCULAR VOLUME 99 fL (80-96); MONOCYTES # (AUTO) 0.9 K/uL (0.1-1.30); MONOCYTES % (AUTO) 12.1 % (2.0-12.0); NEUTROPHILS # (AUTO) 5.1 K/uL (1.8-8.9); NEUTROPHILS % (AUTO) 69.2 % (43.0-81.0); PLATELET COUNT (AUTO) 201 K/uL (150-450); RED BLOOD CELL COUNT(AUTO) 3.31 MIL/uL (4.5-6.0); RED CELL DISTRIBUTION WIDTH 14.6 % (11.5-15.0); WHITE BLOOD COUNT (AUTO) 7.3 K/uL (4.3-11.0)
[2023-09-22 08:00] VITALS: BP 115/84; TEMP 98.2; O2SAT 94
[2023-09-22 08:28] LABS: BILIRUBIN,TOTAL 0.3 mg/dL (0.2-1.0); CALCIUM, SERUM 8.6 mg/dL (8.5-10.1); CREATININE 2.2 mg/dL (0.6-1.3); MAGNESIUM 1.7 mg/dL (1.8-2.4); PHOSPHORUS 4.6 mg/dL (2.5-4.9); POTASSIUM 4.7 mmol/L (3.5-5.1)
[2023-09-22] MEDS: SERTRALINE HCL 50 MG TABLET PO SCH ×2 (08:29→21:11)
[2023-09-22] MEDS: CHOLECALCIFEROL 1,000 UNIT TABLET (VIT D3) PO SCH (08:29)
[2023-09-22] MEDS: PANTOPRAZOLE 40 MG TABLET.DR PO SCH (08:29)
[2023-09-22] MEDS: PREGABALIN 25 MG CAPSULE PO SCH ×2 (08:29→16:30)
[2023-09-22] MEDS: METOPROLOL TARTRATE 25 MG TABLET PO SCH ×2 (08:30→16:30)
[2023-09-22] MEDS: HYDROCODONE/APAP 5/325MG TABLET PO PRN (08:31)
[2023-09-22] MEDS: APIXABAN 5 MG TABLET PO SCH ×2 (08:33→16:31)
[2023-09-22] MEDS: THERAHONEY GEL 1.5 OZ TUBE TP SCH (08:37)
[2023-09-22 11:27] LABS: ALBUMIN 2.6 g/dL (3.4-5.0)
[2023-09-22 16:00] VITALS: BP 136/86; TEMP 98.2; O2SAT 97
[2023-09-22 20:00] VITALS: BP 138/86; TEMP 98.3; O2SAT 96
[2023-09-22] MEDS: LORAZEPAM 1 MG TABLET PO PRN (21:11)
[2023-09-22] MEDS: ATORVASTATIN 40 MG TABLET PO SCH (21:11)
[2023-09-23] VITALS: BP 149/90; TEMP 98; O2SAT 94
[2023-09-23 04:00] VITALS: BP 111/58; TEMP 98; O2SAT 94
[2023-09-23] MEDS: ONDANSETRON HCL/PF 4 MG/2 ML VIAL IVP PRN ×3 (04:22→23:02)
[2023-09-23] MEDS: HYDROCODONE/APAP 5/325MG TABLET PO PRN ×2 (04:23→23:14)
[2023-09-23 05:51] LABS: BASOPHILS % (AUTO) 0.4 % (0.0-2.0); EOSINOPHILS # (AUTO) 0.4 K/uL (0.0-0.7); EOSINOPHILS % (AUTO) 4.6 % (0.0-6.0); HEMATOCRIT 33 % (39-51); HEMOGLOBIN 10.6 g/dL (13.5-17.5); LYMPHOCYTES # (AUTO) 0.8 K/uL (0.8-4.8); LYMPHOCYTES % (AUTO) 9.7 % (20.0-44.0); MEAN CORPUSCULAR HEMOGLOBIN 31 PG (26.0-33.0); MEAN CORPUSCULAR HGB CONC 32 g/dl (31.0-36.0); MEAN CORPUSCULAR VOLUME 98 fL (80-96); MONOCYTES # (AUTO) 0.9 K/uL (0.1-1.30); MONOCYTES % (AUTO) 11.5 % (2.0-12.0); NEUTROPHILS # (AUTO) 5.9 K/uL (1.8-8.9); NEUTROPHILS % (AUTO) 73.8 % (43.0-81.0); PLATELET COUNT (AUTO) 221 K/uL (150-450); RED CELL DISTRIBUTION WIDTH 14.8 % (11.5-15.0); WHITE BLOOD COUNT (AUTO) 7.9 K/uL (4.3-11.0)
[2023-09-23 06:04] LABS: ALBUMIN 2.6 g/dL (3.4-5.0); BILIRUBIN,TOTAL 0.4 mg/dL (0.2-1.0); CALCIUM, SERUM 8.7 mg/dL (8.5-10.1); MAGNESIUM 1.7 mg/dL (1.8-2.4); PHOSPHORUS 3.9 mg/dL (2.5-4.9); POTASSIUM 4.6 mmol/L (3.5-5.1); TOTAL PROTEIN, SERUM 7.1 g/dL (6.4-8.2)
[2023-09-23] MEDS: PANTOPRAZOLE 40 MG TABLET.DR PO SCH (07:30)
[2023-09-23] MEDS: Magnesium 1GM/D5W 100ML PREMIX 100 ML IV SCH ×2 (07:31→09:27)
[2023-09-23 08:30] VITALS: BP 117/60; TEMP 97.5; O2SAT 94
[2023-09-23] MEDS: CHOLECALCIFEROL 1,000 UNIT TABLET (VIT D3) PO SCH (08:39)
[2023-09-23] MEDS: METOPROLOL TARTRATE 25 MG TABLET PO SCH ×2 (08:39→16:45)
[2023-09-23] MEDS: SERTRALINE HCL 50 MG TABLET PO SCH ×2 (08:39→21:22)
[2023-09-23] MEDS: APIXABAN 5 MG TABLET PO SCH ×2 (08:40→16:47)
[2023-09-23] MEDS: PREGABALIN 25 MG CAPSULE PO SCH ×2 (08:47→16:45)
[2023-09-23] MEDS: THERAHONEY GEL 1.5 OZ TUBE TP SCH (08:47)
[2023-09-23] MEDS: LORAZEPAM 1 MG TABLET PO PRN (13:17)
[2023-09-23] MEDS: IV NS 0.9% 1,000 ML IV PRN (13:30)
[2023-09-23 16:00] VITALS: BP 113/61; TEMP 97.7; O2SAT 98
[2023-09-23 20:00] VITALS: BP 132/87; TEMP 98.4; O2SAT 97
[2023-09-23] MEDS: ATORVASTATIN 40 MG TABLET PO SCH (21:22)
[2023-09-24] VITALS (7 sets, daily range): BP systolic 114–140; BP diastolic 70–89; TEMP 97.3–99.7; O2SAT 95–98
[2023-09-24] MEDS: LORAZEPAM 1 MG TABLET PO PRN (02:31)
[2023-09-24 06:34] LABS: CALCIUM, SERUM 8.6 mg/dL (8.5-10.1); CREATININE 1.8 mg/dL (0.6-1.3); POTASSIUM 4.5 mmol/L (3.5-5.1)
[2023-09-24] MEDS: PANTOPRAZOLE 40 MG TABLET.DR PO SCH (08:29)
[2023-09-24] MEDS: SERTRALINE HCL 50 MG TABLET PO SCH ×2 (08:30→20:26)
[2023-09-24] MEDS: CHOLECALCIFEROL 1,000 UNIT TABLET (VIT D3) PO SCH (08:30)
[2023-09-24] MEDS: METOPROLOL TARTRATE 25 MG TABLET PO SCH ×2 (08:30→16:58)
[2023-09-24] MEDS: PREGABALIN 25 MG CAPSULE PO SCH ×2 (08:30→16:58)
[2023-09-24] MEDS: APIXABAN 5 MG TABLET PO SCH ×2 (08:32→17:00)
[2023-09-24] MEDS: ONDANSETRON HCL/PF 4 MG/2 ML VIAL IVP PRN ×5 (08:39→20:26)
[2023-09-24] MEDS: HYDROCODONE/APAP 5/325MG TABLET PO PRN (08:39)
[2023-09-24] MEDS: THERAHONEY GEL 1.5 OZ TUBE TP SCH (08:45)
[2023-09-24] MEDS: IV NS 0.9% 1,000 ML IV PRN (12:28)
[2023-09-24] MEDS: ATORVASTATIN 40 MG TABLET PO SCH (21:01)
[2023-09-25] VITALS: BP 119/65; TEMP 98.6; O2SAT 95
[2023-09-25] MEDS: LORAZEPAM 1 MG TABLET PO PRN (00:31)
[2023-09-25 04:00] VITALS: BP 116/68; TEMP 98.5; O2SAT 97
[2023-09-25] MEDS: PANTOPRAZOLE 40 MG TABLET.DR PO SCH (06:51)
[2023-09-25 06:55] LABS: CREATININE 1.5 mg/dL (0.6-1.3); POTASSIUM 4.3 mmol/L (3.5-5.1)
[2023-09-25 08:00] VITALS: BP 129/61; TEMP 98.7; O2SAT 98
[2023-09-25] MEDS: HYDROCODONE/APAP 5/325MG TABLET PO PRN (09:32)
[2023-09-25] MEDS: SERTRALINE HCL 50 MG TABLET PO SCH ×2 (09:33→20:56)
[2023-09-25] MEDS: CHOLECALCIFEROL 1,000 UNIT TABLET (VIT D3) PO SCH (09:33)
[2023-09-25] MEDS: PREGABALIN 25 MG CAPSULE PO SCH ×2 (09:33→16:38)
[2023-09-25] MEDS: METOPROLOL TARTRATE 25 MG TABLET PO SCH ×2 (09:33→16:39)
[2023-09-25] MEDS: THERAHONEY GEL 1.5 OZ TUBE TP SCH (09:34)
[2023-09-25] MEDS: ASPIRIN EC 81 MG TABLET.DR PO SCH ×2 (14:00→16:39)
[2023-09-25 16:18] VITALS: BP 126/69; TEMP 98.6; O2SAT 94
[2023-09-25 19:00] VITALS: BP 116/79; TEMP 97.9; O2SAT 97
[2023-09-25] MEDS: ATORVASTATIN 40 MG TABLET PO SCH (21:22)
[2023-09-26] MEDS: ONDANSETRON HCL/PF 4 MG/2 ML VIAL IVP PRN ×2 (00:36→20:28)
[2023-09-26] MEDS: HYDROCODONE/APAP 5/325MG TABLET PO PRN (05:31)
[2023-09-26] MEDS: PANTOPRAZOLE 40 MG TABLET.DR PO SCH (06:38)
[2023-09-26 06:58] LABS: BASOPHILS % (AUTO) 0.4 % (0.0-2.0); EOSINOPHILS # (AUTO) 0.3 K/uL (0.0-0.7); EOSINOPHILS % (AUTO) 3.6 % (0.0-6.0); HEMATOCRIT 31 % (39-51); HEMOGLOBIN 10.1 g/dL (13.5-17.5); LYMPHOCYTES # (AUTO) 0.6 K/uL (0.8-4.8); LYMPHOCYTES % (AUTO) 6.5 % (20.0-44.0); MEAN CORPUSCULAR HEMOGLOBIN 32 PG (26.0-33.0); MEAN CORPUSCULAR HGB CONC 32 g/dl (31.0-36.0); MEAN CORPUSCULAR VOLUME 97 fL (80-96); MONOCYTES # (AUTO) 0.8 K/uL (0.1-1.30); MONOCYTES % (AUTO) 8.7 % (2.0-12.0); NEUTROPHILS # (AUTO) 7.6 K/uL (1.8-8.9); NEUTROPHILS % (AUTO) 80.8 % (43.0-81.0); PLATELET COUNT (AUTO) 214 K/uL (150-450); RED BLOOD CELL COUNT(AUTO) 3.18 MIL/uL (4.5-6.0); RED CELL DISTRIBUTION WIDTH 14.7 % (11.5-15.0); WHITE BLOOD COUNT (AUTO) 9.5 K/uL (4.3-11.0)
[2023-09-26 07:00] VITALS: BP 135/72; TEMP 99.1; O2SAT 95
[2023-09-26 07:19] LABS: ALBUMIN 2.3 g/dL (3.4-5.0); BILIRUBIN,TOTAL 0.3 mg/dL (0.2-1.0); CREATININE 1.4 mg/dL (0.6-1.3); MAGNESIUM 1.7 mg/dL (1.8-2.4); PHOSPHORUS 3.1 mg/dL (2.5-4.9); POTASSIUM 4.4 mmol/L (3.5-5.1); TOTAL PROTEIN, SERUM 6.8 g/dL (6.4-8.2)
[2023-09-26] MEDS: THERAHONEY GEL 1.5 OZ TUBE TP SCH (09:00)
[2023-09-26] MEDS: ASPIRIN EC 81 MG TABLET.DR PO SCH (09:00)
[2023-09-26] MEDS ORDERED: MAGNESIUM OXIDE 400 MG TABLET PO ONE (09:00)
[2023-09-26] MEDS: SERTRALINE HCL 50 MG TABLET PO SCH ×2 (10:13→20:28)
[2023-09-26] MEDS: METOPROLOL TARTRATE 25 MG TABLET PO SCH ×2 (10:13→16:22)
[2023-09-26] MEDS: PREGABALIN 25 MG CAPSULE PO SCH ×2 (10:13→16:22)
[2023-09-26] MEDS ORDERED: IODIXANOL 150 ML IV ONE (10:14)
[2023-09-26] MEDS ORDERED: LIDOCAINE HCL/MPF 1% 30 ML VIAL IJ ONE (10:14)
[2023-09-26] MEDS: CHOLECALCIFEROL 1,000 UNIT TABLET (VIT D3) PO SCH (10:14)
[2023-09-26] MEDS ORDERED: IV NS 0.9% 1,000 ML ONE (10:15)
[2023-09-26] MEDS ORDERED: IV SET PRIMARY PUMP SET 1 EA INFUS.SET MC ONE (10:15)
[2023-09-26] MEDS ORDERED: NITROGLYCERIN IN 5 % DEXTROSE 250 ML IV ONE (10:37)
[2023-09-26] MEDS ORDERED: FENTANYL PF 100MCG/2ML AMPUL ONE (11:09)
[2023-09-26] MEDS ORDERED: MIDAZOLAM HCL 2 MG/2ML VIAL ONE (11:09)
[2023-09-26] MEDS: LORAZEPAM 1 MG TABLET PO PRN (15:42)
[2023-09-26 16:00] VITALS: BP 134/71; TEMP 98.6; O2SAT 97
[2023-09-26 20:00] VITALS: BP 149/75; TEMP 97.9; O2SAT 98
[2023-09-26] MEDS: ATORVASTATIN 40 MG TABLET PO SCH (22:28)
[2023-09-26 23:30] VITALS: BP 113/74; TEMP 97.9; O2SAT 96
[2023-09-27 08:00] VITALS: BP 126/71; TEMP 98.2; O2SAT 94
[2023-09-27] MEDS: ASPIRIN EC 81 MG TABLET.DR PO SCH (08:24)
[2023-09-27 08:25] VITALS: BP 126/71
[2023-09-27] MEDS: METOPROLOL TARTRATE 25 MG TABLET PO SCH (08:25)
[2023-09-27] MEDS: PANTOPRAZOLE 40 MG TABLET.DR PO SCH (08:25)
[2023-09-27] MEDS: PREGABALIN 25 MG CAPSULE PO SCH (08:25)
[2023-09-27] MEDS: SERTRALINE HCL 50 MG TABLET PO SCH (08:25)
[2023-09-27] MEDS: CHOLECALCIFEROL 1,000 UNIT TABLET (VIT D3) PO SCH (08:25)
[2023-09-27] MEDS: THERAHONEY GEL 1.5 OZ TUBE TP SCH ×2 (08:29→09:00)
[2023-09-27] MEDS ORDERED: IV NS 0.9% 1,000 ML IV ONE (10:30)
[2023-09-27] MEDS: Magnesium 1GM/D5W 100ML PREMIX 100 ML IV SCH ×2 (10:33→11:48)
[2023-09-27] MEDS: LORAZEPAM 1 MG TABLET PO PRN (14:11)
== END 2023-09-27 14:45 | disposition home health service (06) | DRG 206 ==
LOC: ER 10:03 → TELE 12:00 → MED 09-25 13:41
PROVIDERS: ATTEND Internal Medicine
PROC: 05H533Z Insertion of Infusion Device into Right Subclavian Vein, Percutaneous Approach (ICD-10-PCS; principal; 2023-09-23)
PROC: B546ZZA Ultrasonography of Right Subclavian Vein, Guidance (ICD-10-PCS; 2023-09-23)
PROC: 05H633Z Insertion of Infusion Device into Left Subclavian Vein, Percutaneous Approach (ICD-10-PCS; 2023-09-24)
PROC: B547ZZA Ultrasonography of Left Subclavian Vein, Guidance (ICD-10-PCS; 2023-09-24)
PROC: 4A023N7 Measurement of Cardiac Sampling and Pressure, Left Heart, Percutaneous Approach (ICD-10-PCS; 2023-09-26)
PROC: B211YZZ Fluoroscopy of Multiple Coronary Arteries using Other Contrast (ICD-10-PCS; 2023-09-26)
PROC: 05H633Z Insertion of Infusion Device into Left Subclavian Vein, Percutaneous Approach (ICD-10-PCS; 2023-09-26)
PROC: B547ZZA Ultrasonography of Left Subclavian Vein, Guidance (ICD-10-PCS; 2023-09-26)
DX: M94.0 Chondrocostal junction syndrome [Tietze] (principal); I50.32 Chronic diastolic (congestive) heart failure; N17.9 Acute kidney failure, unspecified; D68.69 Other thrombophilia; I48.20 Chronic atrial fibrillation, unspecified; N18.4 Chronic kidney disease, stage 4 (severe); I13.0 Hypertensive heart and chronic kidney disease with heart failure and stage 1 through stage 4 chronic kidney disease, or unspecified chronic kidney disease; Z68.41 Body mass index [BMI] 40.0-44.9, adult; E44.1 Mild protein-calorie malnutrition; E87.5 Hyperkalemia; D64.9 Anemia, unspecified; E11.22 Type 2 diabetes mellitus with diabetic chronic kidney disease; E78.5 Hyperlipidemia, unspecified; G89.4 Chronic pain syndrome; Z79.4 Long term (current) use of insulin; Z79.01 Long term (current) use of anticoagulants; Z90.49 Acquired absence of other specified parts of digestive tract; Z93.3 Colostomy status; I48.91 Unspecified atrial fibrillation; M89.8X9 Other specified disorders of bone, unspecified site; E66.01 Morbid (severe) obesity due to excess calories; E11.42 Type 2 diabetes mellitus with diabetic polyneuropathy; E83.42 Hypomagnesemia; E86.9 Volume depletion, unspecified
CPT/HCPCS: 36410; 36415; 71045-TC; 80048-TC; 80053-TC; 80061-TC; 80076-TC; 82570-TC; 82962-TC; 83735-TC; 84100-TC; 84300-TC; 84484-TC; 85025-TC; 85730-TC; A4223; C1887; G0378; G0500; J1644; J1815; J2250; J2405; J3010; J3475; J3490; J7030; Q9967

== ENCOUNTER 2023-10-08 17:30 | Inpatient (IN) | payer MEDICARE, OTHER ==
[~2023-10-08] VITALS: Ht 182.9 cm; Wt 135.2 kg
[2023-10-08 17:30] VITALS: O2SAT 94
[~2023-10-08 17:30] MED LIST changes: -CALC667C6 PO
[2023-10-08 18:01] LABS: BASOPHILS # (AUTO) 0.1 K/uL (0.0-0.2); BASOPHILS % (AUTO) 0.8 % (0.0-2.0); EOSINOPHILS # (AUTO) 0.1 K/uL (0.0-0.7); EOSINOPHILS % (AUTO) 0.8 % (0.0-6.0); HEMATOCRIT 38 % (39-51); HEMOGLOBIN 12.5 g/dL (13.5-17.5); LYMPHOCYTES # (AUTO) 0.8 K/uL (0.8-4.8); MEAN CORPUSCULAR HEMOGLOBIN 31 PG (26.0-33.0); MEAN CORPUSCULAR HGB CONC 33 g/dl (31.0-36.0); MEAN CORPUSCULAR VOLUME 95 fL (80-96); MONOCYTES # (AUTO) 0.7 K/uL (0.1-1.30); MONOCYTES % (AUTO) 8.9 % (2.0-12.0); NEUTROPHILS # (AUTO) 6.1 K/uL (1.8-8.9); NEUTROPHILS % (AUTO) 79.5 % (43.0-81.0); PLATELET COUNT (AUTO) 423 K/uL (150-450); RED BLOOD CELL COUNT(AUTO) 3.99 MIL/uL (4.5-6.0); RED CELL DISTRIBUTION WIDTH 14.7 % (11.5-15.0); WHITE BLOOD COUNT (AUTO) 7.7 K/uL (4.3-11.0)
[2023-10-08 18:09] LABS: CALCIUM, SERUM 9.6 mg/dL (8.5-10.1); CARBON DIOXIDE 23 mmol/L (21-32); CHLORIDE 98 mmol/L (98-107); CREATININE 3.4 mg/dL (0.6-1.3); GLUCOSE 144 mg/dL (74-106); POTASSIUM 3.8 mmol/L (3.5-5.1); SODIUM SERUM 132 mmol/L (136-145); UREA NITROGEN, BLOOD 63 mg/dL (7-18)
[2023-10-08] MEDS ORDERED: MORPHINE SULFATE INJ 2 MG/ML DISP.SYRIN ONE (18:55)
[2023-10-08] MEDS ORDERED: ONDANSETRON HCL/PF 4 MG/2 ML VIAL ONE (18:55)
[2023-10-08] MEDS ORDERED: MORPHINE SULFATE INJ 2 MG/ML DISP.SYRIN IV ONE (19:00)
[2023-10-08] MEDS ORDERED: ONDANSETRON HCL/PF - ER 4 MG/2 ML VIAL IV ONE (19:00)
[2023-10-08] MEDS ORDERED: ASPIRIN 81 MG TAB.CHEW PO ONE (19:00)
[2023-10-08 21:10] VITALS: BP 104/67; TEMP 97.5; O2SAT 97
[2023-10-09] VITALS: BP 112/75; TEMP 97.6; O2SAT 96
[2023-10-09] MEDS ORDERED: ONDANSETRON HCL/PF 4 MG/2 ML VIAL IVP PRN (01:00)
[2023-10-09] MEDS ORDERED: Z GUARD REMEDY 4 OZ OINT TP PRN (01:00)
[2023-10-09] MEDS ORDERED: NITROGLYCERIN 0.4 MG/TAB BOTTLE SL PRN (01:00)
[2023-10-09] MEDS ORDERED: DEXTROSE 50%-WATER 50 ML DISP.SYRIN IV PRN (01:00)
[2023-10-09] MEDS ORDERED: ZOLPIDEM TARTRATE 5 MG TABLET PO PRN (01:00)
[2023-10-09] MEDS ORDERED: ACETAMINOPHEN 325 MG TABLET PO PRN (01:00)
[2023-10-09] MEDS ORDERED: MAG HYDROX/AL HYDROX/SIMETH 30 ML UDC PO PRN (01:00)
[2023-10-09] MEDS ORDERED: INSULIN REGULAR, HUMAN 100 UNIT/ML 3 ML VIAL SQ PRN (01:00)
[2023-10-09] MEDS ORDERED: MAGNESIUM HYDROXIDE 30 ML UDC PO PRN (01:00)
[2023-10-09] MEDS: MORPHINE SULFATE INJ 2 MG/ML DISP.SYRIN IV PRN ×4 (02:00→15:28)
[2023-10-09 05:21] VITALS: BP 111/80; TEMP 97.7; O2SAT 94
[2023-10-09] MEDS: BLOOD SUGAR DIAGNOSTIC 1 EACH STRIP IN SCH ×2 (07:22→15:27)
[2023-10-09 07:27] LABS: BASOPHILS # (AUTO) 0.1 K/uL (0.0-0.2); EOSINOPHILS # (AUTO) 0.2 K/uL (0.0-0.7); EOSINOPHILS % (AUTO) 2.5 % (0.0-6.0); HEMATOCRIT 37 % (39-51); HEMOGLOBIN 12.2 g/dL (13.5-17.5); LYMPHOCYTES # (AUTO) 1.2 K/uL (0.8-4.8); LYMPHOCYTES % (AUTO) 18.2 % (20.0-44.0); MEAN CORPUSCULAR HEMOGLOBIN 31 PG (26.0-33.0); MEAN CORPUSCULAR HGB CONC 33 g/dl (31.0-36.0); MEAN CORPUSCULAR VOLUME 96 fL (80-96); MONOCYTES # (AUTO) 0.8 K/uL (0.1-1.30); MONOCYTES % (AUTO) 12.1 % (2.0-12.0); NEUTROPHILS # (AUTO) 4.5 K/uL (1.8-8.9); NEUTROPHILS % (AUTO) 66.2 % (43.0-81.0); PLATELET COUNT (AUTO) 384 K/uL (150-450); RED BLOOD CELL COUNT(AUTO) 3.88 MIL/uL (4.5-6.0); RED CELL DISTRIBUTION WIDTH 14.6 % (11.5-15.0); WHITE BLOOD COUNT (AUTO) 6.8 K/uL (4.3-11.0)
[2023-10-09 07:52] LABS: CALCIUM, SERUM 9.8 mg/dL (8.5-10.1); CREATININE 3.7 mg/dL (0.6-1.3); MAGNESIUM 2.2 mg/dL (1.8-2.4); PHOSPHORUS 6.1 mg/dL (2.5-4.9); POTASSIUM 3.7 mmol/L (3.5-5.1)
[2023-10-09 08:00] VITALS: BP 101/68; TEMP 97.7; O2SAT 98
[2023-10-09] MEDS ORDERED: METOPROLOL TARTRATE 25 MG TABLET PO SCH (09:00)
[2023-10-09] MEDS ORDERED: SERTRALINE HCL 50 MG TABLET PO SCH (09:00)
[2023-10-09] MEDS ORDERED: ASPIRIN 81 MG TAB.CHEW PO SCH (09:00)
[2023-10-09] MEDS ORDERED: PANTOPRAZOLE 40 MG VIAL IV SCH (09:00)
[2023-10-09] MEDS ORDERED: CHOLECALCIFEROL 1,000 UNIT TABLET (VIT D3) PO SCH (09:00)
[2023-10-09] MEDS ORDERED: APIXABAN 5 MG TABLET PO SCH (09:00)
[2023-10-09] MEDS ORDERED: PREGABALIN 25 MG CAPSULE PO SCH (09:00)
[2023-10-09 09:26] LABS: ALBUMIN 3.1 g/dL (3.4-5.0); BILIRUBIN,TOTAL 0.4 mg/dL (0.2-1.0); CALCIUM, SERUM 9.5 mg/dL (8.5-10.1); CREATININE 3.8 mg/dL (0.6-1.3); POTASSIUM 3.7 mmol/L (3.5-5.1); TOTAL PROTEIN, SERUM 8.8 g/dL (6.4-8.2)
[2023-10-09 09:45] LABS: THYROID STIMULATING HORMONE 2.165 uIU/mL (0.358-3.74)
[2023-10-09 12:00] VITALS: BP 120/64; TEMP 97.9; O2SAT 96
[2023-10-09] MEDS ORDERED: IV NS 0.9% 1,000 ML IV ONE (14:30)
[2023-10-09 16:00] VITALS: BP 106/64; TEMP 97.5; O2SAT 94
[2023-10-09] MEDS ORDERED: ATORVASTATIN 40 MG TABLET PO SCH (22:00)
== END 2023-10-09 18:30 | disposition home health service (06) | DRG 206 ==
LOC: ER 17:40 → TELE 20:50
PROVIDERS: ADMIT Nurse Practitioner Acute Care; ATTEND Nurse Practitioner Acute Care
DX: M94.0 Chondrocostal junction syndrome [Tietze] (principal); D68.69 Other thrombophilia; E87.1 Hypo-osmolality and hyponatremia; N17.9 Acute kidney failure, unspecified; N18.4 Chronic kidney disease, stage 4 (severe); I50.32 Chronic diastolic (congestive) heart failure; Z68.41 Body mass index [BMI] 40.0-44.9, adult; I13.0 Hypertensive heart and chronic kidney disease with heart failure and stage 1 through stage 4 chronic kidney disease, or unspecified chronic kidney disease; R11.2 Nausea with vomiting, unspecified; I10 Essential (primary) hypertension; I48.91 Unspecified atrial fibrillation; D64.9 Anemia, unspecified; E11.42 Type 2 diabetes mellitus with diabetic polyneuropathy; E78.5 Hyperlipidemia, unspecified; E86.9 Volume depletion, unspecified; G89.29 Other chronic pain; M89.8X9 Other specified disorders of bone, unspecified site; Z79.01 Long term (current) use of anticoagulants; Z79.4 Long term (current) use of insulin; Z79.899 Other long term (current) drug therapy; Z90.49 Acquired absence of other specified parts of digestive tract; N40.0 Benign prostatic hyperplasia without lower urinary tract symptoms; Z93.3 Colostomy status; E11.22 Type 2 diabetes mellitus with diabetic chronic kidney disease; E66.01 Morbid (severe) obesity due to excess calories
CPT/HCPCS: 36415; 71045-TC; 80048-TC; 80053-TC; 80061-TC; 83735-TC; 84100-TC; 84443-TC; 84484-TC; 85025-TC; C9113; G0378; J1815; J2270; J2405

== ENCOUNTER 2023-11-08 10:20 | Inpatient (IN) | payer MEDICARE, OTHER ==
[~2023-11-08] VITALS: Ht 182.9 cm; Wt 124.7 kg
[2023-11-08] MEDS ORDERED: ONDANSETRON HCL/PF - ER 4 MG/2 ML VIAL IV ONE ×2 (11:00→15:30)
[2023-11-08] MEDS ORDERED: ONDANSETRON HCL/PF 4 MG/2 ML VIAL ONE ×2 (11:07→15:31)
[2023-11-08] MEDS ORDERED: PANT40TA2 PO (11:11)
[2023-11-08] MEDS ORDERED: KETOROLAC TROMETHAMINE INJ 30 MG/ML VIAL IV ONE (11:30)
[2023-11-08 11:41] LABS: BASOPHILS % (AUTO) 0.5 % (0.0-2.0); EOSINOPHILS # (AUTO) 0.2 K/uL (0.0-0.7); EOSINOPHILS % (AUTO) 1.8 % (0.0-6.0); HEMATOCRIT 40 % (39-51); HEMOGLOBIN 13.3 g/dL (13.5-17.5); LYMPHOCYTES # (AUTO) 0.9 K/uL (0.8-4.8); LYMPHOCYTES % (AUTO) 9.4 % (20.0-44.0); MEAN CORPUSCULAR HEMOGLOBIN 32 PG (26.0-33.0); MEAN CORPUSCULAR HGB CONC 34 g/dl (31.0-36.0); MEAN CORPUSCULAR VOLUME 95 fL (80-96); MONOCYTES % (AUTO) 10.9 % (2.0-12.0); NEUTROPHILS % (AUTO) 77.4 % (43.0-81.0); PLATELET COUNT (AUTO) 284 K/uL (150-450); RED BLOOD CELL COUNT(AUTO) 4.16 MIL/uL (4.5-6.0); WHITE BLOOD COUNT (AUTO) 9.1 K/uL (4.3-11.0)
[2023-11-08] MEDS ORDERED: KETOROLAC TROMETHAMINE INJ 30 MG/ML VIAL ONE (11:47)
[2023-11-08 11:57] LABS: LACTIC ACID 1.5 mmol/L (0.4-2.0)
[2023-11-08 12:04] LABS: ALBUMIN 3.7 g/dL (3.4-5.0); BILIRUBIN,TOTAL 0.3 mg/dL (0.2-1.0); CALCIUM, SERUM 10.2 mg/dL (8.5-10.1); CREATININE 5.4 mg/dL (0.6-1.3); POTASSIUM 5.4 mmol/L (3.5-5.1); TOTAL PROTEIN, SERUM 9.8 g/dL (6.4-8.2)
[2023-11-08] MEDS ORDERED: SODIUM POLYSTYRENE SULFONATE 15 G/60 ML BOTTLE RC ONE (14:30)
[2023-11-08] MEDS ORDERED: SODIUM POLYSTYRENE SULFONATE 15 G/60 ML BOTTLE ONE (15:01)
[2023-11-08] MEDS ORDERED: MORPHINE SULFATE INJ 2 MG/ML DISP.SYRIN IV ONE (15:30)
[2023-11-08] MEDS ORDERED: MORPHINE SULFATE INJ 4 MG/ML DISP.SYRIN ONE (15:31)
[2023-11-08] MEDS ORDERED: ACETAMINOPHEN 325 MG TABLET PO PRN (16:30)
[2023-11-08] MEDS ORDERED: MAG HYDROX/AL HYDROX/SIMETH 30 ML UDC PO PRN (16:30)
[2023-11-08] MEDS ORDERED: ONDANSETRON HCL/PF 4 MG/2 ML VIAL IVP PRN (16:30)
[2023-11-08] MEDS ORDERED: IV 1/2NS 1000 ML 1,000 ML IV PRN (16:30)
[2023-11-08] MEDS ORDERED: MAGNESIUM HYDROXIDE 30 ML UDC PO PRN (16:30)
[2023-11-08] MEDS ORDERED: ALBUTEROL FS 2.5 MG/3 ML VIAL.NEB IH PRN ×2 (17:30)
[2023-11-08] MEDS: APIXABAN 5 MG TABLET PO SCH (18:47)
[2023-11-08] MEDS: METOPROLOL TARTRATE 25 MG TABLET PO SCH (18:47)
[2023-11-08] MEDS: PREGABALIN 25 MG CAPSULE PO SCH (18:48)
[2023-11-08 20:00] VITALS: BP 115/61; TEMP 97.7; O2SAT 92
[2023-11-08] MEDS: SERTRALINE HCL 50 MG TABLET PO SCH (20:47)
[2023-11-08] MEDS: ATORVASTATIN 40 MG TABLET PO SCH (21:06)
[2023-11-08] MEDS: MORPHINE SULFATE INJ 2 MG/ML DISP.SYRIN IV PRN (21:07)
[2023-11-09] VITALS (7 sets, daily range): BP systolic 84–115; BP diastolic 60–72; TEMP 97–98.6; O2SAT 93–98
[2023-11-09] MEDS: MORPHINE SULFATE INJ 2 MG/ML DISP.SYRIN IV PRN ×6 (01:23→23:03)
[2023-11-09] MEDS ORDERED: Z GUARD REMEDY 4 OZ OINT TP PRN (09:00)
[2023-11-09] MEDS: APIXABAN 5 MG TABLET PO SCH ×2 (09:18→17:38)
[2023-11-09] MEDS: PANTOPRAZOLE 40 MG TABLET.DR PO SCH (09:19)
[2023-11-09] MEDS: PREGABALIN 25 MG CAPSULE PO SCH ×2 (09:19→17:37)
[2023-11-09] MEDS: SERTRALINE HCL 50 MG TABLET PO SCH ×2 (09:19→21:08)
[2023-11-09] MEDS: METOPROLOL TARTRATE 25 MG TABLET PO SCH ×2 (09:22→17:00)
[2023-11-09] MEDS: Z GUARD REMEDY 4 OZ OINT TP PRN ×2 (09:24→09:25)
[2023-11-09] MEDS: BLOOD SUGAR DIAGNOSTIC 1 EACH STRIP IN SCH (09:26)
[2023-11-09] MEDS: Z GUARD REMEDY 4 OZ OINT TP SCH (09:26)
[2023-11-09] MEDS ORDERED: IV NS 0.9% 1,000 ML BAG IV PRN (10:30)
[2023-11-09] MEDS ORDERED: IV NS 0.9% 1,000 ML IV ONE ×2 (10:30→17:00)
[2023-11-09 11:22] LABS: BASOPHILS % (AUTO) 0.5 % (0.0-2.0); EOSINOPHILS # (AUTO) 0.4 K/uL (0.0-0.7); HEMATOCRIT 39 % (39-51); HEMOGLOBIN 12.9 g/dL (13.5-17.5); LYMPHOCYTES # (AUTO) 1.3 K/uL (0.8-4.8); LYMPHOCYTES % (AUTO) 15.1 % (20.0-44.0); MEAN CORPUSCULAR HEMOGLOBIN 32 PG (26.0-33.0); MEAN CORPUSCULAR HGB CONC 33 g/dl (31.0-36.0); MEAN CORPUSCULAR VOLUME 97 fL (80-96); MONOCYTES % (AUTO) 11.5 % (2.0-12.0); NEUTROPHILS # (AUTO) 5.8 K/uL (1.8-8.9); NEUTROPHILS % (AUTO) 67.9 % (43.0-81.0); PLATELET COUNT (AUTO) 254 K/uL (150-450); RED BLOOD CELL COUNT(AUTO) 4.02 MIL/uL (4.5-6.0); RED CELL DISTRIBUTION WIDTH 15.1 % (11.5-15.0); WHITE BLOOD COUNT (AUTO) 8.6 K/uL (4.3-11.0)
[2023-11-09 11:29] LABS: ALBUMIN 3.4 g/dL (3.4-5.0); BILIRUBIN,TOTAL 0.4 mg/dL (0.2-1.0); CALCIUM, SERUM 9.7 mg/dL (8.5-10.1); CREATININE 6.5 mg/dL (0.6-1.3); MAGNESIUM 1.8 mg/dL (1.8-2.4); PHOSPHORUS 7.7 mg/dL (2.5-4.9); POTASSIUM 4.5 mmol/L (3.5-5.1); TOTAL PROTEIN, SERUM 9.2 g/dL (6.4-8.2)
[2023-11-09] MEDS: CLOTRIMAZOLE 1% 15 GM TUBE TP SCH ×2 (14:27→17:37)
[2023-11-09] MEDS ORDERED: IV NS 0.9% 50 ML IV ONE (16:30)
[2023-11-09] MEDS ORDERED: IV NS 0.9% 100 ML IV PRN (16:30)
[2023-11-09 16:37] LABS: APPEARANCE,URINE CLEAR (CLEAR); BILIRUBIN,URINE NEGATIVE (NEGATIVE); BLOOD, URINE NEGATIVE Ery/uL (NEGATIVE); COLOR,URINE YELLOW (YELLOW); CREATININE, URINE 294.2 MG/DL (30.0-125.0); KETONES,URINE TRACE mg/dL (NEGATIVE); LEUKOCYTE ESTERASE ,URINE 1+ (NEGATIVE); NITRITE, URINE NEGATIVE (NEGATIVE); PH,URINE 5.5 (5.0-8.0); PROTEIN,URINE NEGATIVE (NEGATIVE); UGLUCOSE NEGATIVE (NEGATIVE); URINE SODIUM, RANDOM < 5 mmol/l (40-220); URINE TOTAL PROTEIN 41.9 mg/dL (0-11.9); UROBILINOGEN,URINE 0.2 EU/dL (0.2)
[2023-11-09] MEDS ORDERED: IV NS 0.9% 1,000 ML IV PRN ×2 (17:00)
[2023-11-09 17:10] LABS: ADD URINE CULTURE YES; BACTERIA,URINE 1+ /HPF (None Seen); RBC,URINE 0-2 /HPF (0-2)
[2023-11-09 17:22] LABS: EOSINOPHIL,URINE None Seen
[2023-11-09] MEDS: ATORVASTATIN 40 MG TABLET PO SCH (21:08)
[2023-11-10] MEDS: MORPHINE SULFATE INJ 2 MG/ML DISP.SYRIN IV PRN ×4 (03:15→20:45)
[2023-11-10 08:00] VITALS: BP 112/65; TEMP 98.2; O2SAT 92
[2023-11-10] MEDS: PANTOPRAZOLE 40 MG TABLET.DR PO SCH (09:16)
[2023-11-10] MEDS: SERTRALINE HCL 50 MG TABLET PO SCH ×2 (09:16→21:00)
[2023-11-10] MEDS: PREGABALIN 25 MG CAPSULE PO SCH ×2 (09:16→16:28)
[2023-11-10] MEDS: METOPROLOL TARTRATE 25 MG TABLET PO SCH ×2 (09:17→16:29)
[2023-11-10] MEDS: Z GUARD REMEDY 4 OZ OINT TP SCH (09:19)
[2023-11-10] MEDS: APIXABAN 5 MG TABLET PO SCH ×2 (09:20→16:31)
[2023-11-10] MEDS: BLOOD SUGAR DIAGNOSTIC 1 EACH STRIP IN SCH (09:21)
[2023-11-10] MEDS: CLOTRIMAZOLE 1% 15 GM TUBE TP SCH ×2 (09:29→16:38)
[2023-11-10] MEDS: IV NS 0.9% 1,000 ML IV PRN ×2 (12:03→22:22)
[2023-11-10 12:27] LABS: BASOPHILS % (AUTO) 0.5 % (0.0-2.0); EOSINOPHILS # (AUTO) 0.4 K/uL (0.0-0.7); EOSINOPHILS % (AUTO) 4.6 % (0.0-6.0); HEMATOCRIT 40 % (39-51); HEMOGLOBIN 13.3 g/dL (13.5-17.5); LYMPHOCYTES # (AUTO) 0.7 K/uL (0.8-4.8); LYMPHOCYTES % (AUTO) 8.4 % (20.0-44.0); MEAN CORPUSCULAR HEMOGLOBIN 32 PG (26.0-33.0); MEAN CORPUSCULAR HGB CONC 34 g/dl (31.0-36.0); MEAN CORPUSCULAR VOLUME 95 fL (80-96); MONOCYTES # (AUTO) 0.7 K/uL (0.1-1.30); MONOCYTES % (AUTO) 8.6 % (2.0-12.0); NEUTROPHILS # (AUTO) 6.2 K/uL (1.8-8.9); NEUTROPHILS % (AUTO) 77.9 % (43.0-81.0); PLATELET COUNT (AUTO) 245 K/uL (150-450); RED BLOOD CELL COUNT(AUTO) 4.18 MIL/uL (4.5-6.0); RED CELL DISTRIBUTION WIDTH 14.7 % (11.5-15.0)
[2023-11-10 12:43] LABS: ALBUMIN 3.3 g/dL (3.4-5.0); BILIRUBIN,TOTAL 0.3 mg/dL (0.2-1.0); CALCIUM, SERUM 9.2 mg/dL (8.5-10.1); CREATININE 4.6 mg/dL (0.6-1.3); MAGNESIUM 1.6 mg/dL (1.8-2.4); PHOSPHORUS 7.2 mg/dL (2.5-4.9); POTASSIUM 4.2 mmol/L (3.5-5.1); TOTAL PROTEIN, SERUM 8.9 g/dL (6.4-8.2)
[2023-11-10 16:00] VITALS: BP 122/74; TEMP 98.1; O2SAT 96
[2023-11-10 20:00] VITALS: BP 107/73; TEMP 98.3; O2SAT 94
[2023-11-10] MEDS: ATORVASTATIN 40 MG TABLET PO SCH (21:34)
[2023-11-11] MEDS: MORPHINE SULFATE INJ 2 MG/ML DISP.SYRIN IV PRN ×2 (03:48→20:24)
[2023-11-11 07:00] VITALS: BP 111/56; TEMP 97.9; O2SAT 98
[2023-11-11] MEDS: SERTRALINE HCL 50 MG TABLET PO SCH ×2 (08:57→21:57)
[2023-11-11] MEDS: APIXABAN 5 MG TABLET PO SCH ×2 (08:57→17:18)
[2023-11-11] MEDS: PANTOPRAZOLE 40 MG TABLET.DR PO SCH (08:57)
[2023-11-11] MEDS: PREGABALIN 25 MG CAPSULE PO SCH ×2 (08:58→17:17)
[2023-11-11] MEDS: METOPROLOL TARTRATE 25 MG TABLET PO SCH ×2 (09:00→17:00)
[2023-11-11] MEDS: CLOTRIMAZOLE 1% 15 GM TUBE TP SCH ×2 (09:06→17:45)
[2023-11-11] MEDS: BLOOD SUGAR DIAGNOSTIC 1 EACH STRIP IN SCH (09:06)
[2023-11-11] MEDS: Z GUARD REMEDY 4 OZ OINT TP SCH (09:07)
[2023-11-11] MEDS: IV NS 0.9% 1,000 ML IV PRN (10:17)
[2023-11-11 16:00] VITALS: BP_SYST 105; BP_SYST 99; BP_DIAS 53; BP_DIAS 55; BP_DIAS 71; TEMP 97.7; TEMP 97.9; O2SAT 96; O2SAT 97
[2023-11-11 17:45] LABS: BASOPHILS # (AUTO) 0.1 K/uL (0.0-0.2); BASOPHILS % (AUTO) 0.8 % (0.0-2.0); EOSINOPHILS # (AUTO) 0.2 K/uL (0.0-0.7); EOSINOPHILS % (AUTO) 3.4 % (0.0-6.0); HEMATOCRIT 35 % (39-51); HEMOGLOBIN 11.3 g/dL (13.5-17.5); LYMPHOCYTES # (AUTO) 0.5 K/uL (0.8-4.8); LYMPHOCYTES % (AUTO) 6.8 % (20.0-44.0); MEAN CORPUSCULAR HEMOGLOBIN 32 PG (26.0-33.0); MEAN CORPUSCULAR HGB CONC 32 g/dl (31.0-36.0); MEAN CORPUSCULAR VOLUME 99 fL (80-96); MONOCYTES # (AUTO) 0.3 K/uL (0.1-1.30); MONOCYTES % (AUTO) 4.4 % (2.0-12.0); NEUTROPHILS # (AUTO) 5.9 K/uL (1.8-8.9); NEUTROPHILS % (AUTO) 84.6 % (43.0-81.0); PLATELET COUNT (AUTO) 173 K/uL (150-450); RED BLOOD CELL COUNT(AUTO) 3.54 MIL/uL (4.5-6.0)
[2023-11-11 17:55] LABS: CALCIUM, SERUM 8.6 mg/dL (8.5-10.1); CREATININE 2.6 mg/dL (0.6-1.3); POTASSIUM 5.4 mmol/L (3.5-5.1)
[2023-11-11 20:05] VITALS: BP 104/73; TEMP 98; O2SAT 100
[2023-11-11] MEDS: ATORVASTATIN 40 MG TABLET PO SCH (21:57)
[2023-11-12] MEDS: IV NS 0.9% 1,000 ML IV PRN ×3 (00:35→17:53)
[2023-11-12] MEDS: MORPHINE SULFATE INJ 2 MG/ML DISP.SYRIN IV PRN ×5 (00:35→21:12)
[2023-11-12] MEDS: PANTOPRAZOLE 40 MG TABLET.DR PO SCH (07:39)
[2023-11-12] MEDS: BLOOD SUGAR DIAGNOSTIC 1 EACH STRIP IN SCH (08:15)
[2023-11-12] MEDS: PREGABALIN 25 MG CAPSULE PO SCH ×2 (08:24→16:09)
[2023-11-12] MEDS: METOPROLOL TARTRATE 25 MG TABLET PO SCH ×2 (08:24→16:03)
[2023-11-12] MEDS: SERTRALINE HCL 50 MG TABLET PO SCH ×2 (08:24→20:51)
[2023-11-12] MEDS: APIXABAN 5 MG TABLET PO SCH ×2 (08:24→16:09)
[2023-11-12] MEDS: CLOTRIMAZOLE 1% 15 GM TUBE TP SCH ×2 (08:25→16:10)
[2023-11-12] MEDS: Z GUARD REMEDY 4 OZ OINT TP SCH (08:26)
[2023-11-12 08:33] VITALS: BP 109/56; TEMP 97.9; O2SAT 98
[2023-11-12] MEDS ORDERED: SODIUM POLYSTYRENE SULFONATE 15 G/60 ML BOTTLE PO ONE (10:30)
[2023-11-12 11:23] LABS: CALCIUM, SERUM 8.6 mg/dL (8.5-10.1); POTASSIUM 4.5 mmol/L (3.5-5.1)
[2023-11-12 11:28] LABS: ALBUMIN 2.3 g/dL (3.4-5.0); BILIRUBIN,TOTAL 0.3 mg/dL (0.2-1.0); MAGNESIUM 1.4 mg/dL (1.8-2.4); PHOSPHORUS 3.3 mg/dL (2.5-4.9); TOTAL PROTEIN, SERUM 6.8 g/dL (6.4-8.2)
[2023-11-12 16:11] LABS: PTH, INTACT 76 pg/mL (15-65)
[2023-11-12 16:44] VITALS: BP 92/54; TEMP 97.5; O2SAT 98
[2023-11-12] MEDS: ATORVASTATIN 40 MG TABLET PO SCH (21:01)
[2023-11-13] MEDS: IV NS 0.9% 1,000 ML IV PRN ×2 (01:47→10:16)
[2023-11-13] MEDS: MORPHINE SULFATE INJ 2 MG/ML DISP.SYRIN IV PRN ×5 (01:48→20:14)
[2023-11-13 01:56] VITALS: BP 130/58; TEMP 98; O2SAT 96
[2023-11-13 05:10] LABS: *SPE A/G RATIO 0.7 (0.7-1.7); *SPE ALBUMIN 3.2 g/dL (2.9-4.4); *SPE ALPHA-1-GLOBULIN 0.2 g/dL (0.0-0.4); *SPE ALPHA-2-GLOBULIN 0.9 g/dL (0.4-1.0); *SPE BETA GLOBULIN 1.3 g/dL (0.7-1.3); *SPE GLOBULIN, TOTAL 4.5 g/dL (2.2-3.9); *SPE M-SPIKE Not Observed g/dL (Not Observed); *SPE PROTEIN TOTAL 7.7 g/dL (6.0-8.5)
[2023-11-13] MEDS: PANTOPRAZOLE 40 MG TABLET.DR PO SCH (07:26)
[2023-11-13] MEDS: BLOOD SUGAR DIAGNOSTIC 1 EACH STRIP IN SCH (08:26)
[2023-11-13] MEDS: PREGABALIN 25 MG CAPSULE PO SCH ×2 (08:30→16:12)
[2023-11-13] MEDS: METOPROLOL TARTRATE 25 MG TABLET PO SCH ×2 (08:31→16:13)
[2023-11-13] MEDS: APIXABAN 5 MG TABLET PO SCH ×2 (08:31→16:13)
[2023-11-13] MEDS: SERTRALINE HCL 50 MG TABLET PO SCH ×2 (08:31→21:23)
[2023-11-13] MEDS: Z GUARD REMEDY 4 OZ OINT TP SCH (08:32)
[2023-11-13] MEDS: CLOTRIMAZOLE 1% 15 GM TUBE TP SCH ×2 (08:32→16:14)
[2023-11-13 10:24] VITALS: BP 71/54; TEMP 98.4; O2SAT 96
[2023-11-13 14:00] VITALS: BP 121/75
[2023-11-13 16:00] VITALS: BP_SYST 104; BP_SYST 105; BP_DIAS 60; BP_DIAS 61; TEMP 98.4; TEMP 98.6; O2SAT 96
[2023-11-13 17:06] VITALS: BP 105/60; TEMP 98.6; O2SAT 97
[2023-11-13 20:00] VITALS: BP 119/69; TEMP 97.5; O2SAT 96
[2023-11-13] MEDS: ATORVASTATIN 40 MG TABLET PO SCH (21:23)
[2023-11-14] MEDS: MORPHINE SULFATE INJ 2 MG/ML DISP.SYRIN IV PRN ×5 (00:43→17:26)
[2023-11-14] MEDS: APIXABAN 5 MG TABLET PO SCH ×2 (09:19→17:26)
[2023-11-14] MEDS: SERTRALINE HCL 50 MG TABLET PO SCH (09:19)
[2023-11-14] MEDS: PREGABALIN 25 MG CAPSULE PO SCH ×2 (09:19→17:21)
[2023-11-14] MEDS: PANTOPRAZOLE 40 MG TABLET.DR PO SCH (09:19)
[2023-11-14] MEDS: METOPROLOL TARTRATE 25 MG TABLET PO SCH ×2 (09:20→17:25)
[2023-11-14] MEDS: CLOTRIMAZOLE 1% 15 GM TUBE TP SCH ×2 (10:03→17:00)
[2023-11-14] MEDS: Z GUARD REMEDY 4 OZ OINT TP SCH (10:04)
[2023-11-14] MEDS: BLOOD SUGAR DIAGNOSTIC 1 EACH STRIP IN SCH (10:04)
[2023-11-14 16:00] VITALS: BP 107/67; TEMP 97.1; O2SAT 96
[2023-11-14 17:25] VITALS: BP 107/67
== END 2023-11-14 19:10 | disposition home health service (06) | DRG 683 ==
LOC: ER 10:20 → TELE 17:43 → MED 11-10 14:21
PROVIDERS: ADMIT Internal Medicine; ATTEND Nurse Practitioner Family
DX: N17.9 Acute kidney failure, unspecified (principal); D68.69 Other thrombophilia; E87.1 Hypo-osmolality and hyponatremia; I13.0 Hypertensive heart and chronic kidney disease with heart failure and stage 1 through stage 4 chronic kidney disease, or unspecified chronic kidney disease; I50.32 Chronic diastolic (congestive) heart failure; M48.56XA Collapsed vertebra, not elsewhere classified, lumbar region, initial encounter for fracture; E11.22 Type 2 diabetes mellitus with diabetic chronic kidney disease; N18.4 Chronic kidney disease, stage 4 (severe); E87.5 Hyperkalemia; E86.9 Volume depletion, unspecified; D64.9 Anemia, unspecified; E11.42 Type 2 diabetes mellitus with diabetic polyneuropathy; E66.01 Morbid (severe) obesity due to excess calories; E78.5 Hyperlipidemia, unspecified; I48.91 Unspecified atrial fibrillation; N20.0 Calculus of kidney; N40.0 Benign prostatic hyperplasia without lower urinary tract symptoms; Z79.4 Long term (current) use of insulin; Z79.01 Long term (current) use of anticoagulants; Z93.3 Colostomy status; Z68.37 Body mass index [BMI] 37.0-37.9, adult; Z90.49 Acquired absence of other specified parts of digestive tract; K43.9 Ventral hernia without obstruction or gangrene; R91.1 Solitary pulmonary nodule
CPT/HCPCS: 36415; 71045-TC; 71250-TC; 80048-TC; 80053-TC; 81001; 82550-TC; 82570-TC; 82962-TC; 83605-TC; 83690-TC; 83735-TC; 83880; 83970; 84100-TC; 84155; 84165; 84300-TC; 84484-TC; 85025-TC; 87040-TC; 87086-TC; A4223; G0378; J1885; J2270; J2405; J3490; J7030

== ENCOUNTER 2023-11-20 11:14 | Emergency (ER) | payer MEDICARE, OTHER ==
[~2023-11-20] VITALS: Ht 182.9 cm; Wt 124.7 kg
[~2023-11-20 11:14] MED LIST changes: -CHOL100043 PO; +PANT40TA2 PO
[2023-11-20] MEDS ORDERED: MORPHINE SULFATE INJ 4 MG/ML DISP.SYRIN ONE (11:51)
[2023-11-20] MEDS ORDERED: ONDANSETRON HCL/PF 4 MG/2 ML VIAL ONE (11:51)
[2023-11-20 11:53] LABS: BASOPHILS # (AUTO) 0.1 K/uL (0.0-0.2); BASOPHILS % (AUTO) 1.2 % (0.0-2.0); EOSINOPHILS # (AUTO) 0.3 K/uL (0.0-0.7); HEMATOCRIT 34 % (39-51); HEMOGLOBIN 11.4 g/dL (13.5-17.5); LYMPHOCYTES # (AUTO) 0.8 K/uL (0.8-4.8); LYMPHOCYTES % (AUTO) 9.7 % (20.0-44.0); MEAN CORPUSCULAR HEMOGLOBIN 33 PG (26.0-33.0); MEAN CORPUSCULAR HGB CONC 34 g/dl (31.0-36.0); MEAN CORPUSCULAR VOLUME 97 fL (80-96); MONOCYTES # (AUTO) 0.8 K/uL (0.1-1.30); MONOCYTES % (AUTO) 9.9 % (2.0-12.0); NEUTROPHILS # (AUTO) 6.5 K/uL (1.8-8.9); NEUTROPHILS % (AUTO) 76.2 % (43.0-81.0); PLATELET COUNT (AUTO) 215 K/uL (150-450); RED CELL DISTRIBUTION WIDTH 14.8 % (11.5-15.0); WHITE BLOOD COUNT (AUTO) 8.5 K/uL (4.3-11.0)
[2023-11-20] MEDS ORDERED: ONDANSETRON HCL/PF 4 MG/2 ML VIAL IVP ONE (12:00)
[2023-11-20] MEDS ORDERED: MORPHINE SULFATE INJ 2 MG/ML DISP.SYRIN IV ONE (12:00)
[2023-11-20 12:11] LABS: BILIRUBIN,DIRECT 0.1 mg/dL (0.0-0.2); BILIRUBIN,TOTAL 0.4 mg/dL (0.2-1.0); TOTAL PROTEIN, SERUM 8.6 g/dL (6.4-8.2)
[2023-11-20 12:32] LABS: CALCIUM, SERUM 9.3 mg/dL (8.5-10.1); CARBON DIOXIDE 22 mmol/L (21-32); CHLORIDE 103 mmol/L (98-107); GLUCOSE 113 mg/dL (74-106); POTASSIUM 5.4 mmol/L (3.5-5.1); SODIUM SERUM 136 mmol/L (136-145); UREA NITROGEN, BLOOD 46 mg/dL (7-18)
[2023-11-20] MEDS ORDERED: SODIUM POLYSTYRENE SULFONATE 15 G/60 ML BOTTLE RC ONE (13:00)
[2023-11-20] MEDS ORDERED: SODIUM POLYSTYRENE SULFONATE 15 G/60 ML BOTTLE ONE (13:11)
[2023-11-20 13:48] VITALS: BP 102/72; TEMP 98.1; O2SAT 98
== END 2023-11-20 13:51 | disposition home or self-care (01) ==
LOC: ER 11:17
DX: I12.9 Hypertensive chronic kidney disease with stage 1 through stage 4 chronic kidney disease, or unspecified chronic kidney disease (principal); E11.22 Type 2 diabetes mellitus with diabetic chronic kidney disease; N18.9 Chronic kidney disease, unspecified; E87.5 Hyperkalemia; G89.29 Other chronic pain; R11.0 Nausea; Z60.2 Problems related to living alone
CPT/HCPCS: 99285; 74176; 96374; 71045; 96375; 93005 ×2; 85025; 80048; 83690; 80076; 36415; 84484; 82962; J2270; J2405

== ENCOUNTER 2023-12-14 12:24 | Inpatient (IN) | payer MEDICARE, OTHER ==
[~2023-12-14] VITALS: Ht 182.9 cm; Wt 132.2 kg
[2023-12-14 13:41] LABS: BASOPHILS % (AUTO) 0.3 % (0.0-2.0); EOSINOPHILS # (AUTO) 0.2 K/uL (0.0-0.7); EOSINOPHILS % (AUTO) 1.8 % (0.0-6.0); HEMATOCRIT 36 % (39-51); HEMOGLOBIN 11.8 g/dL (13.5-17.5); LYMPHOCYTES # (AUTO) 0.8 K/uL (0.8-4.8); LYMPHOCYTES % (AUTO) 7.9 % (20.0-44.0); MEAN CORPUSCULAR HEMOGLOBIN 32 PG (26.0-33.0); MEAN CORPUSCULAR HGB CONC 33 g/dl (31.0-36.0); MEAN CORPUSCULAR VOLUME 96 fL (80-96); MONOCYTES # (AUTO) 0.7 K/uL (0.1-1.30); MONOCYTES % (AUTO) 6.7 % (2.0-12.0); NEUTROPHILS # (AUTO) 8.6 K/uL (1.8-8.9); NEUTROPHILS % (AUTO) 83.3 % (43.0-81.0); PLATELET COUNT (AUTO) 215 K/uL (150-450); RED BLOOD CELL COUNT(AUTO) 3.73 MIL/uL (4.5-6.0); RED CELL DISTRIBUTION WIDTH 15.1 % (11.5-15.0); WHITE BLOOD COUNT (AUTO) 10.3 K/uL (4.3-11.0)
[2023-12-14 14:06] LABS: CALCIUM, SERUM 9.4 mg/dL (8.5-10.1); CARBON DIOXIDE 21 mmol/L (21-32); CHLORIDE 104 mmol/L (98-107); CREATININE 2.6 mg/dL (0.6-1.3); GLUCOSE 103 mg/dL (74-106); POTASSIUM 4.6 mmol/L (3.5-5.1); SODIUM SERUM 135 mmol/L (136-145); UREA NITROGEN, BLOOD 42 mg/dL (7-18)
[2023-12-14 14:19] LABS: NT-PRO BNP 1872 pg/mL (0-125)
[2023-12-14] MEDS ORDERED: ONDANSETRON HCL/PF 4 MG/2 ML VIAL ONE (14:31)
[2023-12-14] MEDS ORDERED: MORPHINE SULFATE INJ 4 MG/ML DISP.SYRIN ONE (14:31)
[2023-12-14] MEDS: MORPHINE SULFATE INJ 2 MG/ML DISP.SYRIN IM ONE (14:39)
[2023-12-14] MEDS: ONDANSETRON HCL/PF 4 MG/2 ML VIAL IV ONE (14:40)
[2023-12-14] MEDS: NYSTATIN TOP POWDER 15 GM BOTTLE TP STA (14:41)
[2023-12-14] MEDS ORDERED: FUROSEMIDE 40 MG/4 ML VIAL ONE (14:45)
[2023-12-14] MEDS: FUROSEMIDE 40 MG/4 ML VIAL IV ONE (14:50)
[2023-12-14] MEDS ORDERED: ZOLP5TAB2 PO (14:51)
[2023-12-14] MEDS ORDERED: FURO-144 PO (14:51)
[2023-12-14] MEDS ORDERED: ZOLPIDEM TARTRATE 5 MG TABLET PO PRN (18:00)
[2023-12-14] MEDS ORDERED: ONDANSETRON HCL/PF 4 MG/2 ML VIAL IVP PRN (18:00)
[2023-12-14] MEDS ORDERED: MAGNESIUM HYDROXIDE 30 ML UDC PO PRN (18:00)
[2023-12-14] MEDS ORDERED: ACETAMINOPHEN 325 MG TABLET PO PRN (18:00)
[2023-12-14] MEDS ORDERED: MAG HYDROX/AL HYDROX/SIMETH 30 ML UDC PO PRN (18:00)
[2023-12-14] MEDS ORDERED: Z GUARD REMEDY 4 OZ OINT TP PRN (18:00)
[2023-12-14] MEDS ORDERED: ALBUTEROL FS 2.5 MG/0.5 ML VIAL.NEB NEB PRN (18:30)
[2023-12-14] MEDS: MORPHINE SULFATE INJ 4 MG/ML DISP.SYRIN IV PRN (18:34)
[2023-12-14 20:00] VITALS: BP 114/78; TEMP 97.2; O2SAT 97
[2023-12-14] MEDS: ATORVASTATIN 40 MG TABLET PO SCH (21:31)
[2023-12-14] MEDS: SERTRALINE HCL 50 MG TABLET PO SCH (21:31)
[2023-12-14] MEDS: FUROSEMIDE 40 MG/4 ML VIAL IV SCH (21:46)
[2023-12-14] MEDS: ZOLPIDEM TARTRATE 5 MG TABLET PO SCH (21:46)
[2023-12-15] VITALS: BP 102/58; TEMP 97.7; O2SAT 97
[2023-12-15 04:00] VITALS: BP 109/63; TEMP 97.8; O2SAT 98
[2023-12-15] MEDS: PANTOPRAZOLE 40 MG TABLET.DR PO SCH (07:57)
[2023-12-15 08:00] VITALS: BP 116/59; TEMP 97.9; O2SAT 98
[2023-12-15] MEDS: PREGABALIN 25 MG CAPSULE PO SCH (08:37)
[2023-12-15] MEDS: METOPROLOL TARTRATE 25 MG TABLET PO SCH (08:39)
[2023-12-15] MEDS: APIXABAN 5 MG TABLET PO SCH (08:41)
[2023-12-15] MEDS: BLOOD SUGAR DIAGNOSTIC 1 EACH STRIP IN SCH (09:03)
[2023-12-15 12:00] VITALS: BP 125/63; TEMP 98; O2SAT 98
[2023-12-15 16:00] VITALS: BP 135/78; TEMP 98; O2SAT 98
[2023-12-15 16:43] LABS: BASOPHILS % (AUTO) 0.5 % (0.0-2.0); EOSINOPHILS # (AUTO) 0.3 K/uL (0.0-0.7); EOSINOPHILS % (AUTO) 3.4 % (0.0-6.0); HEMATOCRIT 35 % (39-51); HEMOGLOBIN 11.7 g/dL (13.5-17.5); LYMPHOCYTES # (AUTO) 0.8 K/uL (0.8-4.8); LYMPHOCYTES % (AUTO) 8.7 % (20.0-44.0); MEAN CORPUSCULAR HEMOGLOBIN 32 PG (26.0-33.0); MEAN CORPUSCULAR HGB CONC 33 g/dl (31.0-36.0); MEAN CORPUSCULAR VOLUME 97 fL (80-96); MONOCYTES # (AUTO) 1.1 K/uL (0.1-1.30); MONOCYTES % (AUTO) 12.3 % (2.0-12.0); NEUTROPHILS # (AUTO) 6.6 K/uL (1.8-8.9); NEUTROPHILS % (AUTO) 75.1 % (43.0-81.0); PLATELET COUNT (AUTO) 194 K/uL (150-450); RED BLOOD CELL COUNT(AUTO) 3.64 MIL/uL (4.5-6.0); RED CELL DISTRIBUTION WIDTH 14.5 % (11.5-15.0); WHITE BLOOD COUNT (AUTO) 8.8 K/uL (4.3-11.0)
[2023-12-15 20:40] VITALS: BP 117/60; TEMP 97.8; O2SAT 97
[2023-12-15 21:06] LABS: CALCIUM, SERUM 8.3 mg/dL (8.5-10.1); CREATININE 2.6 mg/dL (0.6-1.3); PHOSPHORUS 5.2 mg/dL (2.5-4.9); POTASSIUM 3.2 mmol/L (3.5-5.1)
[2023-12-15 21:13] LABS: MAGNESIUM 1.2 mg/dL (1.8-2.4)
[2023-12-15] MEDS ORDERED: Magnesium 1GM/D5W 100ML PREMIX PIGGYBACK IV ONE (22:00)
[2023-12-15] MEDS: POTASSIUM CHLORIDE 20 MEQ TAB.PRT.SR PO ONE (22:01)
[2023-12-15] MEDS: Magnesium 1GM/D5W 100ML PREMIX 100 ML IV SCH (22:29)
[2023-12-16 00:35] VITALS: BP 133/78; TEMP 98; O2SAT 98
[2023-12-16 05:15] VITALS: BP 112/68; TEMP 97.9; O2SAT 97
[2023-12-16 08:00] VITALS: BP 124/75; TEMP 98.1; O2SAT 100
[2023-12-16 12:00] VITALS: BP 108/47; TEMP 98.1; O2SAT 100
[2023-12-16 16:00] VITALS: BP 109/58; TEMP 98.1; O2SAT 100
[2023-12-16 20:00] VITALS: BP 110/55; TEMP 97.9; O2SAT 100
[2023-12-17] VITALS: BP 112/57; TEMP 98; O2SAT 100
[2023-12-17 04:00] VITALS: BP 107/73; TEMP 98.4; O2SAT 100
[2023-12-17 06:54] LABS: BASOPHILS % (AUTO) 0.2 % (0.0-2.0); EOSINOPHILS # (AUTO) 0.5 K/uL (0.0-0.7); EOSINOPHILS % (AUTO) 5.4 % (0.0-6.0); HEMATOCRIT 31 % (39-51); HEMOGLOBIN 10.4 g/dL (13.5-17.5); LYMPHOCYTES # (AUTO) 0.9 K/uL (0.8-4.8); LYMPHOCYTES % (AUTO) 11.1 % (20.0-44.0); MEAN CORPUSCULAR HEMOGLOBIN 33 PG (26.0-33.0); MEAN CORPUSCULAR HGB CONC 34 g/dl (31.0-36.0); MEAN CORPUSCULAR VOLUME 97 fL (80-96); MONOCYTES # (AUTO) 0.9 K/uL (0.1-1.30); MONOCYTES % (AUTO) 10.6 % (2.0-12.0); NEUTROPHILS # (AUTO) 6.2 K/uL (1.8-8.9); NEUTROPHILS % (AUTO) 72.7 % (43.0-81.0); PLATELET COUNT (AUTO) 188 K/uL (150-450); RED BLOOD CELL COUNT(AUTO) 3.15 MIL/uL (4.5-6.0); RED CELL DISTRIBUTION WIDTH 14.5 % (11.5-15.0); WHITE BLOOD COUNT (AUTO) 8.6 K/uL (4.3-11.0)
[2023-12-17 07:01] LABS: CALCIUM, SERUM 9.3 mg/dL (8.5-10.1); CREATININE 2.1 mg/dL (0.6-1.3); POTASSIUM 3.8 mmol/L (3.5-5.1)
[2023-12-17 08:00] VITALS: BP 137/74; TEMP 96.9; O2SAT 100
[2023-12-17 12:00] VITALS: BP 113/78; TEMP 96.9; O2SAT 100
== END 2023-12-17 16:50 | disposition home or self-care (01) | DRG 291 ==
LOC: ER 12:26 → TELE1 16:02
PROVIDERS: ADMIT Internal Medicine; ATTEND Internal Medicine
DX: I13.0 Hypertensive heart and chronic kidney disease with heart failure and stage 1 through stage 4 chronic kidney disease, or unspecified chronic kidney disease (principal); I50.33 Acute on chronic diastolic (congestive) heart failure; N17.0 Acute kidney failure with tubular necrosis; N18.4 Chronic kidney disease, stage 4 (severe); D68.69 Other thrombophilia; N40.0 Benign prostatic hyperplasia without lower urinary tract symptoms; E66.9 Obesity, unspecified; E78.5 Hyperlipidemia, unspecified; G62.9 Polyneuropathy, unspecified; G89.29 Other chronic pain; I48.91 Unspecified atrial fibrillation; Z79.01 Long term (current) use of anticoagulants; Z90.49 Acquired absence of other specified parts of digestive tract; Z93.3 Colostomy status; R07.89 Other chest pain; F39 Unspecified mood [affective] disorder; E11.22 Type 2 diabetes mellitus with diabetic chronic kidney disease; Z68.39 Body mass index [BMI] 39.0-39.9, adult
CPT/HCPCS: 36415; 71045-TC; 80048-TC; 82962-TC; 83735-TC; 83880; 84100-TC; 84484-TC; 85025-TC; 93307-TC; A4223; G0378; J1940; J2270; J2405; J3475; J7040; J7050

== ENCOUNTER 2024-01-04 09:59 | Inpatient (IN) | payer MEDICARE, OTHER ==
[~2024-01-04] VITALS: Ht 182.9 cm; Wt 124.3 kg
[~2024-01-04 09:59] MED LIST changes: -COLL30OI TP; +FURO-144 PO; +ZOLP5TAB2 PO
[2024-01-04 13:16] LABS: BASOPHILS # (AUTO) 0.1 K/uL (0.0-0.2); BASOPHILS % (AUTO) 0.6 % (0.0-2.0); EOSINOPHILS # (AUTO) 0.1 K/uL (0.0-0.7); EOSINOPHILS % (AUTO) 0.8 % (0.0-6.0); HEMATOCRIT 45 % (39-51); HEMOGLOBIN 14.7 g/dL (13.5-17.5); LYMPHOCYTES # (AUTO) 1.2 K/uL (0.8-4.8); LYMPHOCYTES % (AUTO) 8.4 % (20.0-44.0); MEAN CORPUSCULAR HEMOGLOBIN 32 PG (26.0-33.0); MEAN CORPUSCULAR HGB CONC 33 g/dl (31.0-36.0); MEAN CORPUSCULAR VOLUME 97 fL (80-96); MONOCYTES # (AUTO) 1.2 K/uL (0.1-1.30); NEUTROPHILS # (AUTO) 11.8 K/uL (1.8-8.9); NEUTROPHILS % (AUTO) 82.2 % (43.0-81.0); PLATELET COUNT (AUTO) 290 K/uL (150-450); RED BLOOD CELL COUNT(AUTO) 4.65 MIL/uL (4.5-6.0); RED CELL DISTRIBUTION WIDTH 14.4 % (11.5-15.0); WHITE BLOOD COUNT (AUTO) 14.4 K/uL (4.3-11.0)
[2024-01-04 13:23] LABS: CALCIUM, SERUM 9.8 mg/dL (8.5-10.1); CARBON DIOXIDE 15 mmol/L (21-32); CHLORIDE 102 mmol/L (98-107); CREATININE 4.7 mg/dL (0.6-1.3); GLUCOSE 131 mg/dL (74-106); POTASSIUM 4.3 mmol/L (3.5-5.1); SODIUM SERUM 130 mmol/L (136-145)
[2024-01-04 13:36] LABS: NT-PRO BNP 909 pg/mL (0-125)
[2024-01-04 13:38] LABS: UREA NITROGEN, BLOOD 82 mg/dL (7-18)
[2024-01-04] MEDS: NYSTATIN/TRIAMCIN CREAM 15 GM TUBE TP STA (15:03)
[2024-01-04] MEDS ORDERED: FUROSEMIDE 40 MG/4 ML VIAL ONE (15:31)
[2024-01-04] MEDS: FUROSEMIDE 40 MG/4 ML VIAL IV ONE (15:34)
[2024-01-04] MEDS ORDERED: ACETAMINOPHEN 325 MG TABLET PO PRN (18:30)
[2024-01-04] MEDS ORDERED: MAG HYDROX/AL HYDROX/SIMETH 30 ML UDC PO PRN (18:30)
[2024-01-04] MEDS ORDERED: MAGNESIUM HYDROXIDE 30 ML UDC PO PRN (18:30)
[2024-01-04] MEDS ORDERED: ONDANSETRON HCL/PF 4 MG/2 ML VIAL IVP PRN (18:30)
[2024-01-04] MEDS ORDERED: HYDROCODONE/APAP 5/325MG TABLET PO PRN (18:30)
[2024-01-04] MEDS ORDERED: Z GUARD REMEDY 4 OZ OINT TP PRN (18:30)
[2024-01-04] MEDS ORDERED: DEXTROSE 50%-WATER 50 ML DISP.SYRIN IV PRN (19:00)
[2024-01-04] MEDS: MORPHINE SULFATE INJ 2 MG/ML DISP.SYRIN IV PRN (19:07)
[2024-01-04 20:00] VITALS: BP 111/76; TEMP 97.5; O2SAT 97
[2024-01-04] MEDS: ATORVASTATIN 40 MG TABLET PO SCH (21:20)
[2024-01-04] MEDS: SERTRALINE HCL 50 MG TABLET PO SCH (21:21)
[2024-01-04] MEDS: ZOLPIDEM TARTRATE 5 MG TABLET PO SCH (21:22)
[2024-01-04] MEDS: BLOOD SUGAR DIAGNOSTIC 1 EACH STRIP IN SCH (21:39)
[2024-01-04] MEDS: INSULIN REGULAR, HUMAN 100 UNIT/ML 3 ML VIAL SQ PRN (22:05)
[2024-01-05] VITALS: BP 102/72; TEMP 97.7; O2SAT 97
[2024-01-05 08:00] VITALS: BP 115/77; TEMP 97.6; O2SAT 99
[2024-01-05] MEDS: PANTOPRAZOLE 40 MG TABLET.DR PO SCH (08:23)
[2024-01-05] MEDS: APIXABAN 5 MG TABLET PO SCH (08:40)
[2024-01-05] MEDS: PREGABALIN 25 MG CAPSULE PO SCH (08:52)
[2024-01-05] MEDS: METOPROLOL TARTRATE 25 MG TABLET PO SCH (08:54)
[2024-01-05 09:18] LABS: BASOPHILS # (AUTO) 0.1 K/uL (0.0-0.2); BASOPHILS % (AUTO) 0.5 % (0.0-2.0); EOSINOPHILS # (AUTO) 0.3 K/uL (0.0-0.7); EOSINOPHILS % (AUTO) 3.5 % (0.0-6.0); HEMATOCRIT 41 % (39-51); HEMOGLOBIN 13.5 g/dL (13.5-17.5); LYMPHOCYTES # (AUTO) 1.3 K/uL (0.8-4.8); LYMPHOCYTES % (AUTO) 13.9 % (20.0-44.0); MEAN CORPUSCULAR HEMOGLOBIN 32 PG (26.0-33.0); MEAN CORPUSCULAR HGB CONC 33 g/dl (31.0-36.0); MEAN CORPUSCULAR VOLUME 95 fL (80-96); MONOCYTES % (AUTO) 10.8 % (2.0-12.0); NEUTROPHILS # (AUTO) 6.7 K/uL (1.8-8.9); NEUTROPHILS % (AUTO) 71.3 % (43.0-81.0); PLATELET COUNT (AUTO) 247 K/uL (150-450); RED BLOOD CELL COUNT(AUTO) 4.26 MIL/uL (4.5-6.0); RED CELL DISTRIBUTION WIDTH 14.6 % (11.5-15.0); WHITE BLOOD COUNT (AUTO) 9.3 K/uL (4.3-11.0)
[2024-01-05 09:38] LABS: CALCIUM, SERUM 9.4 mg/dL (8.5-10.1); CREATININE 4.6 mg/dL (0.6-1.3); MAGNESIUM 1.8 mg/dL (1.8-2.4); PHOSPHORUS 6.7 mg/dL (2.5-4.9); POTASSIUM 3.2 mmol/L (3.5-5.1)
[2024-01-05 12:00] VITALS: BP 125/61; TEMP 97.3; O2SAT 98
[2024-01-05] MEDS: POTASSIUM CHLORIDE 10 MEQ TABLET.SA PO ONE (14:45)
[2024-01-05 16:00] VITALS: BP 115/77; TEMP 97.6; O2SAT 96
[2024-01-05 20:00] VITALS: BP 125/86; TEMP 97.5; O2SAT 98
[2024-01-05 20:12] LABS: APPEARANCE,URINE CLEAR (CLEAR); BILIRUBIN,URINE NEGATIVE (NEGATIVE); BLOOD, URINE NEGATIVE Ery/uL (NEGATIVE); COLOR,URINE YELLOW (YELLOW); KETONES,URINE NEGATIVE (NEGATIVE); LEUKOCYTE ESTERASE ,URINE TRACE (NEGATIVE); NITRITE, URINE NEGATIVE (NEGATIVE); PROTEIN,URINE TRACE mg/dl (NEGATIVE); UGLUCOSE NEGATIVE (NEGATIVE); UROBILINOGEN,URINE 0.2 EU/dL (0.2)
[2024-01-05 21:02] LABS: ADD URINE CULTURE NO; BACTERIA,URINE RARE /HPF (None Seen); RBC,URINE 0-2 /HPF (0-2)
[2024-01-06] VITALS (8 sets, daily range): BP systolic 98–129; BP diastolic 65–93; TEMP 97.6–98.6; O2SAT 9–98
[2024-01-06 09:29] LABS: BASOPHILS % (AUTO) 0.5 % (0.0-2.0); EOSINOPHILS # (AUTO) 0.4 K/uL (0.0-0.7); EOSINOPHILS % (AUTO) 4.2 % (0.0-6.0); HEMATOCRIT 41 % (39-51); HEMOGLOBIN 13.4 g/dL (13.5-17.5); LYMPHOCYTES # (AUTO) 0.8 K/uL (0.8-4.8); LYMPHOCYTES % (AUTO) 8.7 % (20.0-44.0); MEAN CORPUSCULAR HEMOGLOBIN 32 PG (26.0-33.0); MEAN CORPUSCULAR HGB CONC 33 g/dl (31.0-36.0); MEAN CORPUSCULAR VOLUME 96 fL (80-96); MONOCYTES # (AUTO) 0.7 K/uL (0.1-1.30); MONOCYTES % (AUTO) 7.9 % (2.0-12.0); NEUTROPHILS # (AUTO) 7.4 K/uL (1.8-8.9); NEUTROPHILS % (AUTO) 78.7 % (43.0-81.0); PLATELET COUNT (AUTO) 246 K/uL (150-450); RED BLOOD CELL COUNT(AUTO) 4.22 MIL/uL (4.5-6.0); RED CELL DISTRIBUTION WIDTH 14.3 % (11.5-15.0); WHITE BLOOD COUNT (AUTO) 9.4 K/uL (4.3-11.0)
[2024-01-06 09:43] LABS: CALCIUM, SERUM 9.4 mg/dL (8.5-10.1); CREATININE 3.9 mg/dL (0.6-1.3); MAGNESIUM 1.8 mg/dL (1.8-2.4); PHOSPHORUS 6.6 mg/dL (2.5-4.9); POTASSIUM 3.6 mmol/L (3.5-5.1)
[2024-01-07 08:00] VITALS: BP_SYST 116; BP_SYST 125; BP_DIAS 70; BP_DIAS 86; TEMP 98.6; TEMP 98.8; O2SAT 99
[2024-01-07] MEDS ORDERED: HYDR-3972 PO (08:22)
[2024-01-07 08:24] VITALS: BP 125/86
[2024-01-07] MEDS: CLOTRIMAZOLE 1% 15 GM TUBE TP SCH (11:25)
== END 2024-01-07 13:40 | disposition home or self-care (01) | DRG 291 ==
LOC: ER 10:01 → TELE 18:02 → MED 01-06 11:06
PROVIDERS: ADMIT Nurse Practitioner Acute Care; ATTEND Nurse Practitioner Acute Care
PROC: 05HC33Z Insertion of Infusion Device into Left Basilic Vein, Percutaneous Approach (ICD-10-PCS; principal; 2024-01-04)
PROC: B54NZZA Ultrasonography of Left Upper Extremity Veins, Guidance (ICD-10-PCS; 2024-01-04)
DX: I13.0 Hypertensive heart and chronic kidney disease with heart failure and stage 1 through stage 4 chronic kidney disease, or unspecified chronic kidney disease (principal); I50.33 Acute on chronic diastolic (congestive) heart failure; N17.0 Acute kidney failure with tubular necrosis; E87.1 Hypo-osmolality and hyponatremia; I24.9 Acute ischemic heart disease, unspecified; I48.20 Chronic atrial fibrillation, unspecified; N18.9 Chronic kidney disease, unspecified; E66.9 Obesity, unspecified; E78.5 Hyperlipidemia, unspecified; E86.1 Hypovolemia; F32.A Depression, unspecified; G89.29 Other chronic pain; J44.9 Chronic obstructive pulmonary disease, unspecified; N40.0 Benign prostatic hyperplasia without lower urinary tract symptoms; Z79.01 Long term (current) use of anticoagulants; Z93.3 Colostomy status; Z90.49 Acquired absence of other specified parts of digestive tract; Z68.37 Body mass index [BMI] 37.0-37.9, adult; E11.22 Type 2 diabetes mellitus with diabetic chronic kidney disease
CPT/HCPCS: 36415; 71045-TC; 80048-TC; 81001; 82962-TC; 83735-TC; 83880; 84100-TC; 84484-TC; 85025-TC; G0378; J1815; J1940; J2270

== ENCOUNTER 2024-01-15 09:42 | Inpatient (IN) | payer MEDICARE, OTHER ==
[~2024-01-15] VITALS: Ht 182.9 cm; Wt 122.5 kg
[~2024-01-15 09:42] MED LIST changes: -FURO-144 PO; +HYDR-3972 PO
[2024-01-15 11:02] LABS: BASOPHILS % (AUTO) 0.4 % (0.0-2.0); EOSINOPHILS # (AUTO) 0.1 K/uL (0.0-0.7); EOSINOPHILS % (AUTO) 1.4 % (0.0-6.0); HEMATOCRIT 41 % (39-51); LYMPHOCYTES # (AUTO) 0.9 K/uL (0.8-4.8); LYMPHOCYTES % (AUTO) 9.1 % (20.0-44.0); MEAN CORPUSCULAR HEMOGLOBIN 32 PG (26.0-33.0); MEAN CORPUSCULAR HGB CONC 34 g/dl (31.0-36.0); MEAN CORPUSCULAR VOLUME 94 fL (80-96); MONOCYTES # (AUTO) 0.8 K/uL (0.1-1.30); MONOCYTES % (AUTO) 7.9 % (2.0-12.0); NEUTROPHILS # (AUTO) 8.1 K/uL (1.8-8.9); NEUTROPHILS % (AUTO) 81.2 % (43.0-81.0); PLATELET COUNT (AUTO) 219 K/uL (150-450); RED BLOOD CELL COUNT(AUTO) 4.38 MIL/uL (4.5-6.0); RED CELL DISTRIBUTION WIDTH 14.3 % (11.5-15.0)
[2024-01-15 11:17] LABS: INR 1.08 (0.91-1.10); PARTIAL THROMBOPLASTIN TIME 40.2 SEC (24.3-34.3); PROTHROMBIN TIME 11.4 SECS (9.2-11.1)
[2024-01-15] MEDS ORDERED: FURO-144 PO (11:21)
[2024-01-15 11:55] LABS: CALCIUM, SERUM 10.2 mg/dL (8.5-10.1); CARBON DIOXIDE 17 mmol/L (21-32); CHLORIDE 99 mmol/L (98-107); GLUCOSE 133 mg/dL (74-106); NT-PRO BNP 1427 pg/mL (0-125); POTASSIUM 3.3 mmol/L (3.5-5.1); SODIUM SERUM 132 mmol/L (136-145); UREA NITROGEN, BLOOD 73 mg/dL (7-18)
[2024-01-15 11:59] LABS: CREATININE 4.6 mg/dL (0.6-1.3)
[2024-01-15] MEDS ORDERED: ALBUTEROL FS 2.5 MG/3 ML VIAL.NEB NEB PRN (15:00)
[2024-01-15] MEDS ORDERED: LORAZEPAM 1 MG TABLET PO PRN (15:00)
[2024-01-15] MEDS ORDERED: MAGNESIUM HYDROXIDE 30 ML UDC PO PRN (15:00)
[2024-01-15] MEDS ORDERED: MAG HYDROX/AL HYDROX/SIMETH 30 ML UDC PO PRN (15:00)
[2024-01-15] MEDS ORDERED: NITROGLYCERIN 0.4 MG/TAB BOTTLE SL PRN (15:00)
[2024-01-15] MEDS ORDERED: ONDANSETRON HCL/PF 4 MG/2 ML VIAL IVP PRN (15:00)
[2024-01-15] MEDS ORDERED: Z GUARD REMEDY 4 OZ OINT TP PRN (15:00)
[2024-01-15] MEDS ORDERED: ZOLPIDEM TARTRATE 5 MG TABLET PO PRN (15:00)
[2024-01-15] MEDS ORDERED: ACETAMINOPHEN 325 MG TABLET PO PRN (15:00)
[2024-01-15] MEDS ORDERED: DEXTROSE 50%-WATER 50 ML DISP.SYRIN IV PRN (15:00)
[2024-01-15] MEDS: MORPHINE SULFATE INJ 2 MG/ML DISP.SYRIN IV PRN (15:28)
[2024-01-15 16:00] VITALS: BP 106/75; TEMP 97.3; O2SAT 95
[2024-01-15] MEDS: BLOOD SUGAR DIAGNOSTIC 1 EACH STRIP VI SCH (16:59)
[2024-01-15] MEDS: PREGABALIN 25 MG CAPSULE PO SCH (16:59)
[2024-01-15] MEDS: METOPROLOL TARTRATE 25 MG TABLET PO SCH (17:00)
[2024-01-15] MEDS: APIXABAN 5 MG TABLET PO SCH (17:01)
[2024-01-15] MEDS: INSULIN REGULAR, HUMAN 100 UNIT/ML 3 ML VIAL SQ PRN (17:24)
[2024-01-15 20:00] VITALS: BP 108/69; TEMP 98.1; O2SAT 96
[2024-01-15] MEDS: SERTRALINE HCL 50 MG TABLET PO SCH (21:06)
[2024-01-15] MEDS: ATORVASTATIN 40 MG TABLET PO SCH (21:06)
[2024-01-15] MEDS: *INSULIN REGULAR(HUMULIN R)HUM 100 UNIT/ML VIAL SQ PRN (21:52)
[2024-01-16] VITALS: BP 101/78; TEMP 97.8; O2SAT 99
[2024-01-16 04:00] VITALS: BP 109/94; TEMP 98.2; O2SAT 100
[2024-01-16 07:07] LABS: BASOPHILS % (AUTO) 0.6 % (0.0-2.0); EOSINOPHILS # (AUTO) 0.3 K/uL (0.0-0.7); EOSINOPHILS % (AUTO) 3.8 % (0.0-6.0); HEMATOCRIT 41 % (39-51); HEMOGLOBIN 13.8 g/dL (13.5-17.5); LYMPHOCYTES % (AUTO) 11.3 % (20.0-44.0); MEAN CORPUSCULAR HEMOGLOBIN 32 PG (26.0-33.0); MEAN CORPUSCULAR HGB CONC 33 g/dl (31.0-36.0); MEAN CORPUSCULAR VOLUME 95 fL (80-96); MONOCYTES # (AUTO) 0.8 K/uL (0.1-1.30); MONOCYTES % (AUTO) 9.4 % (2.0-12.0); NEUTROPHILS # (AUTO) 6.6 K/uL (1.8-8.9); NEUTROPHILS % (AUTO) 74.9 % (43.0-81.0); PLATELET COUNT (AUTO) 203 K/uL (150-450); RED BLOOD CELL COUNT(AUTO) 4.37 MIL/uL (4.5-6.0); WHITE BLOOD COUNT (AUTO) 8.9 K/uL (4.3-11.0)
[2024-01-16 08:01] LABS: CALCIUM, SERUM 9.9 mg/dL (8.5-10.1); CREATININE 5.2 mg/dL (0.6-1.3); MAGNESIUM 1.9 mg/dL (1.8-2.4); PHOSPHORUS 6.6 mg/dL (2.5-4.9); POTASSIUM 3.3 mmol/L (3.5-5.1)
[2024-01-16 08:08] VITALS: BP 104/80; TEMP 97.5; O2SAT 95
[2024-01-16] MEDS: PANTOPRAZOLE 40 MG TABLET.DR PO SCH (08:46)
[2024-01-16 13:01] VITALS: BP 113/73; TEMP 97.3; O2SAT 97
[2024-01-16 16:01] VITALS: BP 91/71; TEMP 97.3; O2SAT 95
[2024-01-16 20:53] VITALS: BP 103/70; TEMP 98.1; O2SAT 97
[2024-01-17] VITALS: BP 100/64; TEMP 97.3; O2SAT 94
[2024-01-17 05:00] VITALS: BP 100/66; TEMP 97.6; O2SAT 96
[2024-01-17 07:43] LABS: ALBUMIN 3.2 g/dL (3.4-5.0); BILIRUBIN,TOTAL 0.4 mg/dL (0.2-1.0); CALCIUM, SERUM 9.4 mg/dL (8.5-10.1); CREATININE 4.8 mg/dL (0.6-1.3); PHOSPHORUS 7.2 mg/dL (2.5-4.9); POTASSIUM 3.7 mmol/L (3.5-5.1); TOTAL PROTEIN, SERUM 8.6 g/dL (6.4-8.2)
[2024-01-17 08:07] VITALS: BP 88/61; TEMP 98.1; O2SAT 100
[2024-01-17 09:00] VITALS: BP 88/63; TEMP 97.7; O2SAT 99
[2024-01-17] MEDS: IV NS 0.9% 1,000 ML IV PRN (09:43)
[2024-01-17] MEDS: NYSTATIN CREAM 15 GM TUBE TP SCH (14:15)
[2024-01-17 16:00] VITALS: BP 93/51; TEMP 97.3; O2SAT 98
[2024-01-17 16:29] LABS: BASOPHILS # (AUTO) 0.1 K/uL (0.0-0.2); EOSINOPHILS # (AUTO) 0.3 K/uL (0.0-0.7); EOSINOPHILS % (AUTO) 3.4 % (0.0-6.0); HEMATOCRIT 39 % (39-51); LYMPHOCYTES # (AUTO) 0.7 K/uL (0.8-4.8); LYMPHOCYTES % (AUTO) 7.4 % (20.0-44.0); MEAN CORPUSCULAR HEMOGLOBIN 31 PG (26.0-33.0); MEAN CORPUSCULAR HGB CONC 33 g/dl (31.0-36.0); MEAN CORPUSCULAR VOLUME 94 fL (80-96); MONOCYTES # (AUTO) 0.7 K/uL (0.1-1.30); MONOCYTES % (AUTO) 7.3 % (2.0-12.0); NEUTROPHILS # (AUTO) 7.7 K/uL (1.8-8.9); NEUTROPHILS % (AUTO) 80.9 % (43.0-81.0); PLATELET COUNT (AUTO) 208 K/uL (150-450); RED BLOOD CELL COUNT(AUTO) 4.13 MIL/uL (4.5-6.0); WHITE BLOOD COUNT (AUTO) 9.5 K/uL (4.3-11.0)
[2024-01-17 20:00] VITALS: BP 100/71; TEMP 96.9; O2SAT 94
[2024-01-18 07:00] VITALS: BP 108/64; TEMP 97.9; O2SAT 92
[2024-01-18 07:13] LABS: CALCIUM, SERUM 8.9 mg/dL (8.5-10.1); CREATININE 3.5 mg/dL (0.6-1.3); POTASSIUM 3.7 mmol/L (3.5-5.1)
[2024-01-18 16:00] VITALS: BP 102/67; TEMP 97.3; O2SAT 94
[2024-01-18 20:00] VITALS: BP 108/66; TEMP 97.5; O2SAT 94
[2024-01-19 07:30] VITALS: BP 99/59; TEMP 98.1; O2SAT 90
[2024-01-19 10:57] LABS: BASOPHILS % (AUTO) 0.6 % (0.0-2.0); EOSINOPHILS # (AUTO) 0.4 K/uL (0.0-0.7); EOSINOPHILS % (AUTO) 5.1 % (0.0-6.0); HEMATOCRIT 35 % (39-51); HEMOGLOBIN 11.6 g/dL (13.5-17.5); LYMPHOCYTES # (AUTO) 0.7 K/uL (0.8-4.8); MEAN CORPUSCULAR HEMOGLOBIN 32 PG (26.0-33.0); MEAN CORPUSCULAR HGB CONC 33 g/dl (31.0-36.0); MEAN CORPUSCULAR VOLUME 96 fL (80-96); MONOCYTES # (AUTO) 0.8 K/uL (0.1-1.30); MONOCYTES % (AUTO) 10.7 % (2.0-12.0); NEUTROPHILS # (AUTO) 5.6 K/uL (1.8-8.9); NEUTROPHILS % (AUTO) 74.6 % (43.0-81.0); PLATELET COUNT (AUTO) 195 K/uL (150-450); RED BLOOD CELL COUNT(AUTO) 3.68 MIL/uL (4.5-6.0); RED CELL DISTRIBUTION WIDTH 14.4 % (11.5-15.0); WHITE BLOOD COUNT (AUTO) 7.6 K/uL (4.3-11.0)
[2024-01-19 11:19] LABS: CALCIUM, SERUM 8.8 mg/dL (8.5-10.1); CREATININE 2.9 mg/dL (0.6-1.3); POTASSIUM 4.1 mmol/L (3.5-5.1)
[2024-01-19 16:00] VITALS: BP 94/55; TEMP 97.9; O2SAT 95
[2024-01-19 20:00] VITALS: BP 107/73; TEMP 97.7; O2SAT 97
[2024-01-20 08:00] VITALS: BP_SYST 100; BP_SYST 131; BP_DIAS 60; BP_DIAS 82; TEMP 99; TEMP 99.7; O2SAT 98; O2SAT 99
[2024-01-20 12:00] LABS: BASOPHILS % (AUTO) 0.5 % (0.0-2.0); EOSINOPHILS # (AUTO) 0.4 K/uL (0.0-0.7); HEMATOCRIT 32 % (39-51); HEMOGLOBIN 10.4 g/dL (13.5-17.5); LYMPHOCYTES # (AUTO) 0.7 K/uL (0.8-4.8); LYMPHOCYTES % (AUTO) 10.7 % (20.0-44.0); MEAN CORPUSCULAR HEMOGLOBIN 32 PG (26.0-33.0); MEAN CORPUSCULAR HGB CONC 33 g/dl (31.0-36.0); MEAN CORPUSCULAR VOLUME 98 fL (80-96); MONOCYTES # (AUTO) 0.6 K/uL (0.1-1.30); MONOCYTES % (AUTO) 9.8 % (2.0-12.0); NEUTROPHILS # (AUTO) 4.7 K/uL (1.8-8.9); PLATELET COUNT (AUTO) 168 K/uL (150-450); RED BLOOD CELL COUNT(AUTO) 3.27 MIL/uL (4.5-6.0); RED CELL DISTRIBUTION WIDTH 14.1 % (11.5-15.0); WHITE BLOOD COUNT (AUTO) 6.4 K/uL (4.3-11.0)
[2024-01-20 12:10] LABS: CALCIUM, SERUM 8.1 mg/dL (8.5-10.1); CREATININE 2.1 mg/dL (0.6-1.3); POTASSIUM 4.1 mmol/L (3.5-5.1)
[2024-01-20 16:00] VITALS: BP 112/54; TEMP 98.1; O2SAT 96
[2024-01-21 02:00] VITALS: BP 112/79; TEMP 98.1; O2SAT 99
[2024-01-21 07:30] VITALS: BP 137/79; TEMP 98.1; O2SAT 98
[2024-01-21 08:33] VITALS: BP 137/79
[2024-01-21 11:16] LABS: BASOPHILS % (AUTO) 0.4 % (0.0-2.0); EOSINOPHILS # (AUTO) 0.3 K/uL (0.0-0.7); HEMATOCRIT 31 % (39-51); HEMOGLOBIN 10.3 g/dL (13.5-17.5); LYMPHOCYTES # (AUTO) 0.5 K/uL (0.8-4.8); LYMPHOCYTES % (AUTO) 8.6 % (20.0-44.0); MEAN CORPUSCULAR HEMOGLOBIN 32 PG (26.0-33.0); MEAN CORPUSCULAR HGB CONC 33 g/dl (31.0-36.0); MEAN CORPUSCULAR VOLUME 96 fL (80-96); MONOCYTES # (AUTO) 0.6 K/uL (0.1-1.30); MONOCYTES % (AUTO) 9.5 % (2.0-12.0); NEUTROPHILS # (AUTO) 4.8 K/uL (1.8-8.9); NEUTROPHILS % (AUTO) 76.5 % (43.0-81.0); PLATELET COUNT (AUTO) 165 K/uL (150-450); RED BLOOD CELL COUNT(AUTO) 3.26 MIL/uL (4.5-6.0); RED CELL DISTRIBUTION WIDTH 14.3 % (11.5-15.0); WHITE BLOOD COUNT (AUTO) 6.2 K/uL (4.3-11.0)
[2024-01-21 11:26] LABS: CALCIUM, SERUM 8.5 mg/dL (8.5-10.1); POTASSIUM 3.8 mmol/L (3.5-5.1)
[2024-01-23 09:08] LABS: *SPE A/G RATIO 0.6 (0.7-1.7); *SPE ALBUMIN 2.7 g/dL (2.9-4.4); *SPE ALPHA-1-GLOBULIN 0.2 g/dL (0.0-0.4); *SPE GLOBULIN, TOTAL 4.8 g/dL (2.2-3.9); *SPE M-SPIKE 1.2 g/dL (Not Observed); *SPE PROTEIN TOTAL 7.5 g/dL (6.0-8.5); *SPEGAMMA GLOBULIN 2.6 g/dL (0.4-1.8)
== END 2024-01-21 14:34 | disposition home or self-care (01) | DRG 683 ==
LOC: ER 09:45 → TELE 12:52 → MED 01-17 17:55
PROVIDERS: ADMIT Internal Medicine; ATTEND Internal Medicine
PROC: 05HB33Z Insertion of Infusion Device into Right Basilic Vein, Percutaneous Approach (ICD-10-PCS; principal; 2024-01-15)
PROC: B54MZZA Ultrasonography of Right Upper Extremity Veins, Guidance (ICD-10-PCS; 2024-01-15)
DX: N17.0 Acute kidney failure with tubular necrosis (principal); D68.69 Other thrombophilia; E87.1 Hypo-osmolality and hyponatremia; I50.32 Chronic diastolic (congestive) heart failure; I13.0 Hypertensive heart and chronic kidney disease with heart failure and stage 1 through stage 4 chronic kidney disease, or unspecified chronic kidney disease; I48.20 Chronic atrial fibrillation, unspecified; R07.89 Other chest pain; N18.9 Chronic kidney disease, unspecified; N40.0 Benign prostatic hyperplasia without lower urinary tract symptoms; E66.9 Obesity, unspecified; E78.5 Hyperlipidemia, unspecified; E86.1 Hypovolemia; F32.A Depression, unspecified; G89.29 Other chronic pain; J44.9 Chronic obstructive pulmonary disease, unspecified; Z79.01 Long term (current) use of anticoagulants; Z87.442 Personal history of urinary calculi; Z93.3 Colostomy status; E11.22 Type 2 diabetes mellitus with diabetic chronic kidney disease; Z68.36 Body mass index [BMI] 36.0-36.9, adult; N25.0 Renal osteodystrophy; Z91.199 Patient's noncompliance with other medical treatment and regimen due to unspecified reason; Z90.49 Acquired absence of other specified parts of digestive tract; Z79.899 Other long term (current) drug therapy; B36.9 Superficial mycosis, unspecified
CPT/HCPCS: 36415; 71045-TC; 76770-TC; 80048-TC; 80053-TC; 82550-TC; 82962-TC; 83735-TC; 83880; 83970; 84100-TC; 84155; 84165; 84484-TC; 85025-TC; 85730-TC; A4223; G0378; J1815; J2270; J7030

== ENCOUNTER 2024-01-30 10:56 | Inpatient (IN) | payer MEDICARE, OTHER ==
[~2024-01-30] VITALS: Ht 182.9 cm; Wt 124.3 kg
[~2024-01-30 10:56] MED LIST changes: +FURO-144 PO; -HYDR-3972 PO; -ZOLP5TAB2 PO
[2024-01-30] MEDS ORDERED: MECLIZINE HCL 25 MG TABLET ONE (11:29)
[2024-01-30] MEDS: MECLIZINE HCL 12.5 MG TABLET PO ONE (11:32)
[2024-01-30] MEDS ORDERED: ACETAMINOPHEN ES 500 MG TABLET ONE (11:57)
[2024-01-30] MEDS: ACETAMINOPHEN ES 500 MG TABLET PO ONE (11:59)
[2024-01-30 12:18] LABS: CARBON DIOXIDE 16 mmol/L (21-32); CHLORIDE 101 mmol/L (98-107); CREATININE 4.1 mg/dL (0.6-1.3); GLUCOSE 124 mg/dL (74-106); SODIUM SERUM 130 mmol/L (136-145); UREA NITROGEN, BLOOD 50 mg/dL (7-18)
[2024-01-30 12:31] LABS: ALANINE AMINOTRANSFERASE 23 U/L (12-78); ALBUMIN 2.8 g/dL (3.4-5.0); ALKALINE PHOSPHATASE 75 U/L (46-116); ASPARTATE AMINOTRANSFERASE 17 U/L (15-37); BILIRUBIN,DIRECT 0.1 mg/dL (0.0-0.2); BILIRUBIN,TOTAL 0.3 mg/dL (0.2-1.0); NT-PRO BNP 1781 pg/mL (0-125)
[2024-01-30 12:46] LABS: BASOPHILS # (AUTO) 0.1 K/uL (0.0-0.2); BASOPHILS % (AUTO) 0.7 % (0.0-2.0); EOSINOPHILS # (AUTO) 0.3 K/uL (0.0-0.7); EOSINOPHILS % (AUTO) 3.8 % (0.0-6.0); HEMATOCRIT 36 % (39-51); HEMOGLOBIN 11.7 g/dL (13.5-17.5); LYMPHOCYTES # (AUTO) 0.9 K/uL (0.8-4.8); LYMPHOCYTES % (AUTO) 10.4 % (20.0-44.0); MEAN CORPUSCULAR HEMOGLOBIN 31 PG (26.0-33.0); MEAN CORPUSCULAR HGB CONC 33 g/dl (31.0-36.0); MEAN CORPUSCULAR VOLUME 94 fL (80-96); MONOCYTES # (AUTO) 0.8 K/uL (0.1-1.30); MONOCYTES % (AUTO) 9.4 % (2.0-12.0); NEUTROPHILS # (AUTO) 6.2 K/uL (1.8-8.9); NEUTROPHILS % (AUTO) 75.7 % (43.0-81.0); PLATELET COUNT (AUTO) 259 K/uL (150-450); RED CELL DISTRIBUTION WIDTH 14.4 % (11.5-15.0); WHITE BLOOD COUNT (AUTO) 8.2 K/uL (4.3-11.0)
[2024-01-30] MEDS ORDERED: ZOLP5TAB2 PO (13:05)
[2024-01-30] MEDS ORDERED: ONDANSETRON HCL/PF 4 MG/2 ML VIAL ONE (13:08)
[2024-01-30] MEDS ORDERED: ASPIRIN 325 MG TABLET ONE (13:08)
[2024-01-30] MEDS: ASPIRIN 325 MG TABLET PO ONE (13:14)
[2024-01-30] MEDS: IV NS 0.9% 1,000 ML BAG IV ONE (13:14)
[2024-01-30] MEDS: ONDANSETRON HCL/PF 4 MG/2 ML VIAL IVP ONE (13:14)
[2024-01-30] MEDS: MORPHINE SULFATE INJ 2 MG/ML DISP.SYRIN IV PRN (17:11)
[2024-01-30] MEDS ORDERED: MORPHINE SULFATE INJ 2 MG/ML DISP.SYRIN IV ONE (17:30)
[2024-01-30 20:55] VITALS: BP 111/63; TEMP 98.4; O2SAT 96
[2024-01-30] MEDS ORDERED: ACETAMINOPHEN 325 MG TABLET PO PRN (21:00)
[2024-01-30] MEDS ORDERED: ALBUTEROL SULFATE 8 GM HFA.AER.AD IH PRN (21:00)
[2024-01-30] MEDS ORDERED: ONDANSETRON HCL/PF 4 MG/2 ML VIAL IVP PRN (21:00)
[2024-01-30] MEDS: BUMETANIDE INJ 6 MG in IV NS 0.9% 36 ML IV ONE (22:33)
[2024-01-30] MEDS: SERTRALINE HCL 50 MG TABLET PO SCH (22:54)
[2024-01-30] MEDS: ATORVASTATIN 40 MG TABLET PO SCH (22:54)
[2024-01-31] VITALS: BP 131/95; TEMP 97.5; O2SAT 95
[2024-01-31] MEDS: ZOLPIDEM TARTRATE 5 MG TABLET PO SCH (00:29)
[2024-01-31 03:15] LABS: BASOPHILS # (AUTO) 0.1 K/uL (0.0-0.2); BASOPHILS % (AUTO) 0.9 % (0.0-2.0); EOSINOPHILS # (AUTO) 0.4 K/uL (0.0-0.7); EOSINOPHILS % (AUTO) 6.4 % (0.0-6.0); HEMATOCRIT 34 % (39-51); HEMOGLOBIN 11.2 g/dL (13.5-17.5); LYMPHOCYTES # (AUTO) 0.9 K/uL (0.8-4.8); LYMPHOCYTES % (AUTO) 12.9 % (20.0-44.0); MEAN CORPUSCULAR HEMOGLOBIN 31 PG (26.0-33.0); MEAN CORPUSCULAR HGB CONC 32 g/dl (31.0-36.0); MEAN CORPUSCULAR VOLUME 96 fL (80-96); MONOCYTES # (AUTO) 0.5 K/uL (0.1-1.30); MONOCYTES % (AUTO) 7.4 % (2.0-12.0); NEUTROPHILS # (AUTO) 4.8 K/uL (1.8-8.9); NEUTROPHILS % (AUTO) 72.4 % (43.0-81.0); PLATELET COUNT (AUTO) 223 K/uL (150-450); RED BLOOD CELL COUNT(AUTO) 3.58 MIL/uL (4.5-6.0); RED CELL DISTRIBUTION WIDTH 14.3 % (11.5-15.0); WHITE BLOOD COUNT (AUTO) 6.6 K/uL (4.3-11.0)
[2024-01-31] MEDS: MORPHINE SULFATE INJ 2 MG/ML DISP.SYRIN IV PRN (05:48)
[2024-01-31 07:38] LABS: CALCIUM, SERUM 8.5 mg/dL (8.5-10.1); PHOSPHORUS 5.5 mg/dL (2.5-4.9); POTASSIUM 3.5 mmol/L (3.5-5.1)
[2024-01-31] MEDS: PREGABALIN 25 MG CAPSULE PO SCH (08:43)
[2024-01-31] MEDS: FUROSEMIDE 40 MG TABLET PO SCH (08:43)
[2024-01-31] MEDS: PANTOPRAZOLE 40 MG TABLET.DR PO SCH (08:43)
[2024-01-31] MEDS: METOPROLOL TARTRATE 25 MG TABLET PO SCH (08:44)
[2024-01-31] MEDS: APIXABAN 5 MG TABLET PO SCH (08:47)
[2024-01-31] MEDS: BLOOD SUGAR DIAGNOSTIC 1 EACH STRIP IN SCH (08:57)
[2024-01-31] MEDS ORDERED: ALBUTEROL FS 2.5 MG/0.5 ML VIAL.NEB HHN PRN (09:00)
[2024-01-31 16:00] VITALS: BP 93/74; TEMP 98.4; O2SAT 96
[2024-01-31 20:00] VITALS: BP 95/66; TEMP 98.2; O2SAT 94
[2024-02-01] VITALS: BP 97/67; TEMP 98.2; O2SAT 95
[2024-02-01 04:00] VITALS: BP 102/64; TEMP 97.9; O2SAT 96
[2024-02-01 06:32] LABS: BASOPHILS # (AUTO) 0.1 K/uL (0.0-0.2); BASOPHILS % (AUTO) 0.9 % (0.0-2.0); EOSINOPHILS # (AUTO) 0.6 K/uL (0.0-0.7); EOSINOPHILS % (AUTO) 8.2 % (0.0-6.0); HEMATOCRIT 33 % (39-51); HEMOGLOBIN 10.9 g/dL (13.5-17.5); LYMPHOCYTES # (AUTO) 0.9 K/uL (0.8-4.8); LYMPHOCYTES % (AUTO) 13.5 % (20.0-44.0); MEAN CORPUSCULAR HEMOGLOBIN 32 PG (26.0-33.0); MEAN CORPUSCULAR HGB CONC 33 g/dl (31.0-36.0); MEAN CORPUSCULAR VOLUME 97 fL (80-96); MONOCYTES # (AUTO) 0.9 K/uL (0.1-1.30); MONOCYTES % (AUTO) 13.1 % (2.0-12.0); NEUTROPHILS # (AUTO) 4.4 K/uL (1.8-8.9); NEUTROPHILS % (AUTO) 64.3 % (43.0-81.0); PLATELET COUNT (AUTO) 207 K/uL (150-450); RED BLOOD CELL COUNT(AUTO) 3.41 MIL/uL (4.5-6.0); RED CELL DISTRIBUTION WIDTH 14.2 % (11.5-15.0); WHITE BLOOD COUNT (AUTO) 6.8 K/uL (4.3-11.0)
[2024-02-01 07:01] LABS: CALCIUM, SERUM 8.3 mg/dL (8.5-10.1); CREATININE 3.6 mg/dL (0.6-1.3); MAGNESIUM 1.4 mg/dL (1.8-2.4); POTASSIUM 3.8 mmol/L (3.5-5.1)
[2024-02-01] MEDS: Z GUARD REMEDY 4 OZ OINT TP PRN (09:14)
[2024-02-01] MEDS: CLOTRIMAZOLE 1% 15 GM TUBE TP SCH (09:17)
[2024-02-01] MEDS: MINERAL OIL/PETROL OINT 396 GM JAR TP SCH (09:18)
[2024-02-01 11:21] VITALS: BP 94/60; TEMP 97.9; O2SAT 98
[2024-02-01 12:00] VITALS: BP 94/60; TEMP 97.9; O2SAT 98
[2024-02-01] MEDS: Magnesium 1GM/D5W 100ML PREMIX 100 ML IV SCH (16:57)
[2024-02-01 20:00] VITALS: BP 95/69; TEMP 97.9; O2SAT 97
[2024-02-02] VITALS: BP 117/65; TEMP 98.1; O2SAT 95
[2024-02-02 08:00] VITALS: BP 114/94; TEMP 98.1; O2SAT 96
[2024-02-02 12:00] VITALS: BP 112/63; TEMP 97.7; O2SAT 95
[2024-02-02 15:37] LABS: BASOPHILS % (AUTO) 0.3 % (0.0-2.0); EOSINOPHILS # (AUTO) 0.2 K/uL (0.0-0.7); HEMATOCRIT 33 % (39-51); HEMOGLOBIN 11.2 g/dL (13.5-17.5); LYMPHOCYTES # (AUTO) 0.6 K/uL (0.8-4.8); LYMPHOCYTES % (AUTO) 7.2 % (20.0-44.0); MEAN CORPUSCULAR HEMOGLOBIN 32 PG (26.0-33.0); MEAN CORPUSCULAR HGB CONC 34 g/dl (31.0-36.0); MEAN CORPUSCULAR VOLUME 96 fL (80-96); MONOCYTES # (AUTO) 0.8 K/uL (0.1-1.30); MONOCYTES % (AUTO) 9.8 % (2.0-12.0); NEUTROPHILS # (AUTO) 6.4 K/uL (1.8-8.9); NEUTROPHILS % (AUTO) 79.7 % (43.0-81.0); PLATELET COUNT (AUTO) 202 K/uL (150-450); RED BLOOD CELL COUNT(AUTO) 3.46 MIL/uL (4.5-6.0); RED CELL DISTRIBUTION WIDTH 13.9 % (11.5-15.0)
[2024-02-02 15:56] LABS: CALCIUM, SERUM 8.6 mg/dL (8.5-10.1); CREATININE 2.6 mg/dL (0.6-1.3); MAGNESIUM 1.7 mg/dL (1.8-2.4); PHOSPHORUS 3.9 mg/dL (2.5-4.9); POTASSIUM 3.8 mmol/L (3.5-5.1)
[2024-02-02 16:00] VITALS: BP 111/65; TEMP 98.1; O2SAT 95
[2024-02-02] MEDS: Magnesium 1GM/D5W 100ML PREMIX 100 ML IV SCH (18:00)
[2024-02-02] MEDS ORDERED: Magnesium 1 GM/2 ML VIAL IV ONE ×3 (18:00→19:00)
[2024-02-02 19:01] LABS: CREATININE, URINE 89.9 MG/DL (30.0-125.0); URINE SODIUM, RANDOM < 5 mmol/l (40-220); URINE TOTAL PROTEIN 19.6 mg/dL (0-11.9)
[2024-02-02 19:06] LABS: APPEARANCE,URINE CLEAR (CLEAR); BILIRUBIN,URINE NEGATIVE (NEGATIVE); BLOOD, URINE NEGATIVE Ery/uL (NEGATIVE); COLOR,URINE YELLOW (YELLOW); KETONES,URINE NEGATIVE (NEGATIVE); LEUKOCYTE ESTERASE ,URINE TRACE (NEGATIVE); NITRITE, URINE NEGATIVE (NEGATIVE); PROTEIN,URINE NEGATIVE (NEGATIVE); UGLUCOSE NEGATIVE (NEGATIVE); UROBILINOGEN,URINE 0.2 EU/dL (0.2)
[2024-02-02 19:37] LABS: ADD URINE CULTURE NO; BACTERIA,URINE RARE /HPF (None Seen); HYALINE CASTS, URINE Few /LPF (None Seen); RBC,URINE 0-2 /HPF (0-2)
[2024-02-02 19:59] LABS: EOSINOPHIL,URINE None Seen
[2024-02-02 20:00] VITALS: BP 112/95; TEMP 98.1; O2SAT 96
[2024-02-02] MEDS: IV NS 0.9% 1,000 ML IV PRN (20:33)
[2024-02-03 07:29] LABS: CALCIUM, SERUM 8.3 mg/dL (8.5-10.1); POTASSIUM 4.2 mmol/L (3.5-5.1)
[2024-02-03 07:30] LABS: CREATININE 2.1 mg/dL (0.6-1.3); MAGNESIUM 2.1 mg/dL (1.8-2.4); PHOSPHORUS 3.4 mg/dL (2.5-4.9)
[2024-02-03 08:00] VITALS: BP 104/64; TEMP 97.9; TEMP 98.5; O2SAT 95
[2024-02-03 11:09] LABS: BASOPHILS % (AUTO) 0.6 % (0.0-2.0); EOSINOPHILS # (AUTO) 0.3 K/uL (0.0-0.7); EOSINOPHILS % (AUTO) 4.2 % (0.0-6.0); HEMATOCRIT 32 % (39-51); HEMOGLOBIN 10.2 g/dL (13.5-17.5); LYMPHOCYTES # (AUTO) 0.5 K/uL (0.8-4.8); LYMPHOCYTES % (AUTO) 6.5 % (20.0-44.0); MEAN CORPUSCULAR HEMOGLOBIN 31 PG (26.0-33.0); MEAN CORPUSCULAR HGB CONC 33 g/dl (31.0-36.0); MEAN CORPUSCULAR VOLUME 97 fL (80-96); MONOCYTES # (AUTO) 0.7 K/uL (0.1-1.30); MONOCYTES % (AUTO) 9.6 % (2.0-12.0); NEUTROPHILS # (AUTO) 5.6 K/uL (1.8-8.9); NEUTROPHILS % (AUTO) 79.1 % (43.0-81.0); PLATELET COUNT (AUTO) 177 K/uL (150-450); RED BLOOD CELL COUNT(AUTO) 3.26 MIL/uL (4.5-6.0); RED CELL DISTRIBUTION WIDTH 14.5 % (11.5-15.0); WHITE BLOOD COUNT (AUTO) 7.1 K/uL (4.3-11.0)
[2024-02-03 16:00] VITALS: BP_SYST 95; BP_SYST 96; BP_DIAS 56; BP_DIAS 57; TEMP 99; O2SAT 94
[2024-02-03 21:19] VITALS: TEMP 98.6
[2024-02-04 06:00] LABS: BASOPHILS % (AUTO) 0.4 % (0.0-2.0); EOSINOPHILS # (AUTO) 0.4 K/uL (0.0-0.7); EOSINOPHILS % (AUTO) 5.4 % (0.0-6.0); HEMATOCRIT 33 % (39-51); LYMPHOCYTES # (AUTO) 0.6 K/uL (0.8-4.8); LYMPHOCYTES % (AUTO) 9.3 % (20.0-44.0); MEAN CORPUSCULAR HEMOGLOBIN 32 PG (26.0-33.0); MEAN CORPUSCULAR HGB CONC 33 g/dl (31.0-36.0); MEAN CORPUSCULAR VOLUME 96 fL (80-96); MONOCYTES # (AUTO) 0.8 K/uL (0.1-1.30); MONOCYTES % (AUTO) 11.3 % (2.0-12.0); NEUTROPHILS % (AUTO) 73.6 % (43.0-81.0); PLATELET COUNT (AUTO) 218 K/uL (150-450); RED BLOOD CELL COUNT(AUTO) 3.46 MIL/uL (4.5-6.0); RED CELL DISTRIBUTION WIDTH 14.1 % (11.5-15.0); WHITE BLOOD COUNT (AUTO) 6.8 K/uL (4.3-11.0)
[2024-02-04 06:14] LABS: CALCIUM, SERUM 9.5 mg/dL (8.5-10.1); CREATININE 1.9 mg/dL (0.6-1.3); MAGNESIUM 1.9 mg/dL (1.8-2.4); PHOSPHORUS 3.3 mg/dL (2.5-4.9); POTASSIUM 4.4 mmol/L (3.5-5.1)
[2024-02-04 07:30] VITALS: BP 110/63; TEMP 97.5; O2SAT 98
[2024-02-04 08:42] VITALS: BP 110/63
== END 2024-02-04 15:00 | disposition home health service (06) | DRG 682 ==
LOC: ER 11:00 → TELE 20:00 → MED 02-03 09:14
PROVIDERS: ADMIT Nurse Practitioner Acute Care; ATTEND Nurse Practitioner Acute Care
PROC: 05HF33Z Insertion of Infusion Device into Left Cephalic Vein, Percutaneous Approach (ICD-10-PCS; principal; 2024-02-02)
PROC: B54NZZA Ultrasonography of Left Upper Extremity Veins, Guidance (ICD-10-PCS; 2024-02-02)
DX: N17.9 Acute kidney failure, unspecified (principal); I50.33 Acute on chronic diastolic (congestive) heart failure; I13.0 Hypertensive heart and chronic kidney disease with heart failure and stage 1 through stage 4 chronic kidney disease, or unspecified chronic kidney disease; E87.1 Hypo-osmolality and hyponatremia; D68.69 Other thrombophilia; E87.20 Acidosis, unspecified; N18.4 Chronic kidney disease, stage 4 (severe); I25.10 Atherosclerotic heart disease of native coronary artery without angina pectoris; E11.22 Type 2 diabetes mellitus with diabetic chronic kidney disease; E11.42 Type 2 diabetes mellitus with diabetic polyneuropathy; E66.01 Morbid (severe) obesity due to excess calories; E78.5 Hyperlipidemia, unspecified; I48.91 Unspecified atrial fibrillation; J44.9 Chronic obstructive pulmonary disease, unspecified; Z79.01 Long term (current) use of anticoagulants; Z93.3 Colostomy status; Z91.199 Patient's noncompliance with other medical treatment and regimen due to unspecified reason; Z90.49 Acquired absence of other specified parts of digestive tract; Z68.37 Body mass index [BMI] 37.0-37.9, adult; N20.0 Calculus of kidney
CPT/HCPCS: 36410; 36415; 70450-TC; 71045-TC; 76770-TC; 80048-TC; 80061-TC; 80076-TC; 81001; 82570-TC; 82962-TC; 83735-TC; 83880; 84100-TC; 84300-TC; 84484-TC; 85025-TC; 87081-TC; A4223; G0378; J2270; J2405; J3475; J3490; J7030; J7050; J8597

== ENCOUNTER 2024-02-11 14:29 | Emergency (ER) | payer MEDICARE, OTHER ==
[~2024-02-11] VITALS: Ht 182.9 cm; Wt 122.5 kg
[~2024-02-11 14:29] MED LIST changes: +ZOLP5TAB2 PO
[2024-02-11] MEDS ORDERED: ONDANSETRON HCL/PF 4 MG/2 ML VIAL ONE (15:29)
[2024-02-11] MEDS ORDERED: MORPHINE SULFATE INJ 4 MG/ML DISP.SYRIN ONE (15:29)
[2024-02-11] MEDS: ONDANSETRON HCL/PF 4 MG/2 ML VIAL IVP ONE (15:30)
[2024-02-11 15:34] LABS: BASOPHILS % (AUTO) 0.4 % (0.0-2.0); EOSINOPHILS # (AUTO) 0.1 K/uL (0.0-0.7); EOSINOPHILS % (AUTO) 0.7 % (0.0-6.0); HEMATOCRIT 40 % (39-51); HEMOGLOBIN 12.9 g/dL (13.5-17.5); LYMPHOCYTES # (AUTO) 0.7 K/uL (0.8-4.8); LYMPHOCYTES % (AUTO) 6.9 % (20.0-44.0); MEAN CORPUSCULAR HEMOGLOBIN 31 PG (26.0-33.0); MEAN CORPUSCULAR HGB CONC 32 g/dl (31.0-36.0); MEAN CORPUSCULAR VOLUME 97 fL (80-96); MONOCYTES # (AUTO) 0.7 K/uL (0.1-1.30); MONOCYTES % (AUTO) 6.9 % (2.0-12.0); NEUTROPHILS # (AUTO) 8.5 K/uL (1.8-8.9); NEUTROPHILS % (AUTO) 85.1 % (43.0-81.0); PLATELET COUNT (AUTO) 293 K/uL (150-450); RED BLOOD CELL COUNT(AUTO) 4.16 MIL/uL (4.5-6.0); RED CELL DISTRIBUTION WIDTH 14.8 % (11.5-15.0)
[2024-02-11] MEDS: MORPHINE SULFATE INJ 2 MG/ML DISP.SYRIN IV ONE (15:35)
[2024-02-11 15:53] LABS: CALCIUM, SERUM 9.5 mg/dL (8.5-10.1); CARBON DIOXIDE 15 mmol/L (21-32); CHLORIDE 98 mmol/L (98-107); CREATININE 6.5 mg/dL (0.6-1.3); GLUCOSE 135 mg/dL (74-106); POTASSIUM 3.8 mmol/L (3.5-5.1); SODIUM SERUM 130 mmol/L (136-145); UREA NITROGEN, BLOOD 67 mg/dL (7-18)
[2024-02-11 15:59] LABS: ALANINE AMINOTRANSFERASE 26 U/L (12-78); ALBUMIN 3.7 g/dL (3.4-5.0); ALKALINE PHOSPHATASE 86 U/L (46-116); ASPARTATE AMINOTRANSFERASE 19 U/L (15-37); BILIRUBIN,DIRECT 0.1 mg/dL (0.0-0.2); BILIRUBIN,TOTAL 0.5 mg/dL (0.2-1.0); LIPASE 28 U/L (16-77); TOTAL PROTEIN, SERUM 9.5 g/dL (6.4-8.2)
[2024-02-11 17:23] VITALS: BP 118/78; TEMP 98.1; O2SAT 97
== END 2024-02-11 17:23 | disposition home or self-care (01) ==
LOC: ER 14:32
DX: G89.29 Other chronic pain (principal); R10.11 Right upper quadrant pain; I12.9 Hypertensive chronic kidney disease with stage 1 through stage 4 chronic kidney disease, or unspecified chronic kidney disease; E11.22 Type 2 diabetes mellitus with diabetic chronic kidney disease; N18.9 Chronic kidney disease, unspecified; I48.91 Unspecified atrial fibrillation; E78.5 Hyperlipidemia, unspecified; Z60.2 Problems related to living alone; Z79.899 Other long term (current) drug therapy
CPT/HCPCS: 99285; 74176; 96374; 71045; 96375; 93005; 85025; 80048; 83690; 80076; 36415; 84484; J2270; J2405

== ENCOUNTER 2024-02-18 12:39 | Inpatient (IN) | payer MEDICARE, OTHER ==
[~2024-02-18] VITALS: Ht 182.9 cm; Wt 120.2 kg
[2024-02-18] VITALS (8 sets, daily range): BP systolic 108–124; BP diastolic 68–101; TEMP 97.5–98; O2SAT 93–100
[2024-02-18] MEDS ORDERED: ONDANSETRON HCL/PF 4 MG/2 ML VIAL ONE (13:40)
[2024-02-18] MEDS ORDERED: MORPHINE SULFATE INJ 4 MG/ML DISP.SYRIN ONE (13:40)
[2024-02-18] MEDS ORDERED: DILTIAZEM HCL 50 MG IV ONE (13:41)
[2024-02-18 13:56] LABS: BASOPHILS # (AUTO) 0.1 K/uL (0.0-0.2); BASOPHILS % (AUTO) 0.3 % (0.0-2.0); HEMATOCRIT 44 % (39-51); HEMOGLOBIN 14.4 g/dL (13.5-17.5); LYMPHOCYTES # (AUTO) 0.3 K/uL (0.8-4.8); LYMPHOCYTES % (AUTO) 1.6 % (20.0-44.0); MEAN CORPUSCULAR HEMOGLOBIN 31 PG (26.0-33.0); MEAN CORPUSCULAR HGB CONC 33 g/dl (31.0-36.0); MEAN CORPUSCULAR VOLUME 94 fL (80-96); MONOCYTES # (AUTO) 1.1 K/uL (0.1-1.30); MONOCYTES % (AUTO) 5.4 % (2.0-12.0); NEUTROPHILS % (AUTO) 92.7 % (43.0-81.0); PLATELET COUNT (AUTO) 352 K/uL (150-450); RED BLOOD CELL COUNT(AUTO) 4.66 MIL/uL (4.5-6.0); RED CELL DISTRIBUTION WIDTH 14.9 % (11.5-15.0); WHITE BLOOD COUNT (AUTO) 20.5 K/uL (4.3-11.0)
[2024-02-18] MEDS: DILTIAZEM HCL 50 MG IV IV ONE (13:57)
[2024-02-18] MEDS ORDERED: ASPIRIN 325 MG TABLET ONE (13:58)
[2024-02-18] MEDS: MORPHINE SULFATE INJ 2 MG/ML DISP.SYRIN IV ONE (13:58)
[2024-02-18] MEDS: ONDANSETRON HCL/PF 4 MG/2 ML VIAL IVP ONE (13:59)
[2024-02-18] MEDS: ASPIRIN 325 MG TABLET PO ONE (14:02)
[2024-02-18 14:13] LABS: ALANINE AMINOTRANSFERASE 14 U/L (12-78); ALKALINE PHOSPHATASE 103 U/L (46-116); ASPARTATE AMINOTRANSFERASE 14 U/L (15-37); BILIRUBIN,DIRECT 0.2 mg/dL (0.0-0.2); BILIRUBIN,TOTAL 0.8 mg/dL (0.2-1.0); CARBON DIOXIDE 17 mmol/L (21-32); GLUCOSE 206 mg/dL (74-106); SODIUM SERUM 121 mmol/L (136-145); TOTAL PROTEIN, SERUM 9.8 g/dL (6.4-8.2)
[2024-02-18] MEDS ORDERED: DILTIAZEM HCL 30 MG TABLET PO ONE (14:30)
[2024-02-18 14:39] LABS: CREATININE 19.9 mg/dL (0.6-1.3)
[2024-02-18 14:40] LABS: LACTIC ACID 2.4 mmol/L (0.4-2.0)
[2024-02-18 14:48] LABS: UREA NITROGEN, BLOOD 149 mg/dL (7-18)
[2024-02-18 14:49] LABS: CHLORIDE 77 mmol/L (98-107)
[2024-02-18 14:55] LABS: POTASSIUM 7.4 mmol/L (3.5-5.1)
[2024-02-18 14:55] LABS: SALICYLATE 0.1 mg/dL (2.8-20.0)
[2024-02-18 14:56] LABS: ACETAMINOPHEN 29 ug/ml (10-30)
[2024-02-18] MEDS: VANCOMYCIN 1 GM in IV D5W 250 ML IV ONE (15:00)
[2024-02-18] MEDS: INSULIN REGULAR, HUMAN 100 UNIT/ML 10 ML VIAL IV ONE (15:00)
[2024-02-18] MEDS: ALBUTEROL FS 2.5 MG/3 ML VIAL.NEB NEB ONE (15:00)
[2024-02-18] MEDS: CEFEPIME 1 GM in IV D5W 50 ML IV ONE (15:40)
[2024-02-18] MEDS ORDERED: CALCIUM CHLORIDE 1,000 MG/10 ML DISP.SYRIN ONE (15:46)
[2024-02-18] MEDS ORDERED: DEXTROSE 50%-WATER 50 ML DISP.SYRIN ONE (15:46)
[2024-02-18] MEDS: CALCIUM CHLORIDE 1,000 MG/10 ML DISP.SYRIN IV ONE (15:55)
[2024-02-18] MEDS: DEXTROSE 50%-WATER 50 ML DISP.SYRIN IV ONE (15:58)
[2024-02-18] MEDS: IV NS 0.9% 1,000 ML BAG IV ONE (16:00)
[2024-02-18] MEDS ORDERED: INSULIN REGULAR, HUMAN 100 UNIT/ML 10 ML VIAL ONE (16:02)
[2024-02-18] MEDS ORDERED: ZOLPIDEM TARTRATE 5 MG TABLET PO PRN (16:30)
[2024-02-18] MEDS ORDERED: MAG HYDROX/AL HYDROX/SIMETH 30 ML UDC PO PRN (16:30)
[2024-02-18] MEDS ORDERED: ACETAMINOPHEN 325 MG TABLET PO PRN (16:30)
[2024-02-18] MEDS ORDERED: MAGNESIUM HYDROXIDE 30 ML UDC PO PRN (16:30)
[2024-02-18] MEDS: IV NS 0.9% 1,000 ML IV PRN (16:50)
[2024-02-18 18:00] LABS: CALCIUM, SERUM 9.8 mg/dL (8.5-10.1)
[2024-02-18 18:07] LABS: POTASSIUM 7.6 mmol/L (3.5-5.1)
[2024-02-18 18:08] LABS: CREATININE 20.7 mg/dL (0.6-1.3)
[2024-02-18] MEDS: MORPHINE SULFATE INJ 4 MG/ML DISP.SYRIN IV PRN (20:26)
[2024-02-18] MEDS: ONDANSETRON HCL/PF 4 MG/2 ML VIAL IVP PRN (20:56)
[2024-02-18 22:00] LABS: ALBUMIN 3.3 g/dL (3.4-5.0); BILIRUBIN,TOTAL 0.6 mg/dL (0.2-1.0); CALCIUM, SERUM 8.5 mg/dL (8.5-10.1); TOTAL PROTEIN, SERUM 9.1 g/dL (6.4-8.2)
[2024-02-18 22:03] LABS: POTASSIUM 7.3 mmol/L (3.5-5.1)
[2024-02-18 22:04] LABS: CREATININE 19.6 mg/dL (0.6-1.3)
[2024-02-18] MEDS: SODIUM BICARBONATE SYR 50 MEQ/50 ML DISP.SYRIN IV ONE (22:44)
[2024-02-18] MEDS: SODIUM BICARBONATE SYR 50 MEQ/50 ML DISP.SYRIN ONE ×2 (23:04)
[2024-02-18] MEDS: Sodium Bicarbonate 150 MEQ in IV D5W 1,000 ML IV PRN (23:13)
[2024-02-19] VITALS (19 sets, daily range): BP systolic 80–123; BP diastolic 37–95; TEMP 97.5–98.8; O2SAT 90–98
[2024-02-19] MEDS ORDERED: DEXTROSE 50%-WATER 50 ML DISP.SYRIN IV PRN
[2024-02-19] MEDS: MORPHINE SULFATE INJ 2 MG/ML DISP.SYRIN IV PRN (01:06)
[2024-02-19 04:15] LABS: HEMATOCRIT 37 % (39-51); HEMOGLOBIN 12.2 g/dL (13.5-17.5); LYMPHOCYTES # (AUTO) 0.5 K/uL (0.8-4.8); LYMPHOCYTES % (AUTO) 3.1 % (20.0-44.0); MEAN CORPUSCULAR HEMOGLOBIN 31 PG (26.0-33.0); MEAN CORPUSCULAR HGB CONC 33 g/dl (31.0-36.0); MEAN CORPUSCULAR VOLUME 95 fL (80-96); MONOCYTES # (AUTO) 1.9 K/uL (0.1-1.30); NEUTROPHILS # (AUTO) 14.8 K/uL (1.8-8.9); NEUTROPHILS % (AUTO) 85.9 % (43.0-81.0); PLATELET COUNT (AUTO) 272 K/uL (150-450); RED BLOOD CELL COUNT(AUTO) 3.91 MIL/uL (4.5-6.0); RED CELL DISTRIBUTION WIDTH 14.8 % (11.5-15.0); WHITE BLOOD COUNT (AUTO) 17.3 K/uL (4.3-11.0)
[2024-02-19 04:36] LABS: CALCIUM, SERUM 7.8 mg/dL (8.5-10.1); MAGNESIUM 1.3 mg/dL (1.8-2.4); POTASSIUM 6.1 mmol/L (3.5-5.1)
[2024-02-19] MEDS: BLOOD SUGAR DIAGNOSTIC 1 EACH STRIP VI SCH (07:30)
[2024-02-19 07:59] LABS: CREATININE, URINE 217.6 MG/DL (30.0-125.0); URINE SODIUM, RANDOM < 5 mmol/l (40-220); URINE TOTAL PROTEIN 80.8 mg/dL (0-11.9)
[2024-02-19] MEDS: SEVELAMER CARBONATE 800 MG TABLET PO SCH (08:21)
[2024-02-19] MEDS: Sodium Bicarbonate 150 MEQ in IV D5W 1,000 ML IV SCH ×2 (09:00→18:31)
[2024-02-19] MEDS: Z GUARD REMEDY 4 OZ OINT TP SCH (10:17)
[2024-02-19] MEDS ORDERED: ALBUMIN 25% 25 GM in PREMIX 1 EA IV PRN (12:30)
[2024-02-19] MEDS: CEFEPIME 1 GM in IV D5W 50 ML IV SCH (14:35)
[2024-02-19] MEDS: INSULIN REGULAR, HUMAN 100 UNIT/ML 3 ML VIAL SQ PRN (17:08)
[2024-02-20] VITALS: BP 101/63; TEMP 98.1; O2SAT 94
[2024-02-20 00:54] VITALS: BP 101/63; TEMP 98.2; O2SAT 94
[2024-02-20 04:00] VITALS: BP 133/71; TEMP 98.2; O2SAT 95
[2024-02-20 07:00] VITALS: BP 127/75; TEMP 98.1; O2SAT 95
[2024-02-20 07:19] LABS: BASOPHILS % (AUTO) 0.1 % (0.0-2.0); EOSINOPHILS # (AUTO) 0.2 K/uL (0.0-0.7); EOSINOPHILS % (AUTO) 2.1 % (0.0-6.0); HEMATOCRIT 32 % (39-51); HEMOGLOBIN 10.9 g/dL (13.5-17.5); LYMPHOCYTES # (AUTO) 0.7 K/uL (0.8-4.8); LYMPHOCYTES % (AUTO) 7.2 % (20.0-44.0); MEAN CORPUSCULAR HEMOGLOBIN 32 PG (26.0-33.0); MEAN CORPUSCULAR HGB CONC 34 g/dl (31.0-36.0); MEAN CORPUSCULAR VOLUME 95 fL (80-96); MONOCYTES # (AUTO) 1.1 K/uL (0.1-1.30); MONOCYTES % (AUTO) 10.7 % (2.0-12.0); NEUTROPHILS # (AUTO) 8.3 K/uL (1.8-8.9); NEUTROPHILS % (AUTO) 79.9 % (43.0-81.0); PLATELET COUNT (AUTO) 158 K/uL (150-450); RED BLOOD CELL COUNT(AUTO) 3.41 MIL/uL (4.5-6.0); WHITE BLOOD COUNT (AUTO) 10.3 K/uL (4.3-11.0)
[2024-02-20 07:34] LABS: ALBUMIN 2.6 g/dL (3.4-5.0); BILIRUBIN,TOTAL 1.2 mg/dL (0.2-1.0); CALCIUM, SERUM 7.3 mg/dL (8.5-10.1); POTASSIUM 4.3 mmol/L (3.5-5.1); TOTAL PROTEIN, SERUM 7.2 g/dL (6.4-8.2)
[2024-02-20 07:35] LABS: MAGNESIUM 1.2 mg/dL (1.8-2.4)
[2024-02-20 07:38] LABS: CREATININE 10.3 mg/dL (0.6-1.3); PHOSPHORUS 8.5 mg/dL (2.5-4.9)
[2024-02-20] MEDS: Z GUARD REMEDY 4 OZ OINT TP PRN (09:04)
[2024-02-20 11:00] VITALS: BP 105/70; TEMP 98.2; O2SAT 95
[2024-02-20] MEDS: VANCOMYCIN 500 MG in IV D5W 100 ML IV PRN (12:21)
[2024-02-20] MEDS: IV NS 0.9% 1,000 ML IV PRN (12:54)
[2024-02-20 13:10] LABS: HEPATITIS B SURFACE AB Non Reactive (.)
[2024-02-20 16:00] VITALS: BP 97/69; TEMP 98.2; O2SAT 96
[2024-02-20] MEDS: *INSULIN REGULAR(HUMULIN R)HUM 100 UNIT/ML VIAL SQ PRN (17:33)
[2024-02-20] MEDS ORDERED: ALBUTEROL SULFATE 8 GM HFA.AER.AD IH PRN (23:30)
[2024-02-21 07:57] LABS: CALCIUM, SERUM 6.9 mg/dL (8.5-10.1); PHOSPHORUS 6.3 mg/dL (2.5-4.9); POTASSIUM 3.4 mmol/L (3.5-5.1)
[2024-02-21 08:00] VITALS: BP 104/65; TEMP 98.8; O2SAT 94
[2024-02-21] MEDS: PREGABALIN 25 MG CAPSULE PO SCH (08:34)
[2024-02-21] MEDS: APIXABAN 5 MG TABLET PO SCH (08:36)
[2024-02-21] MEDS: METOPROLOL TARTRATE 25 MG TABLET PO SCH (08:37)
[2024-02-21] MEDS ORDERED: PREGABALIN 75 MG PO SCH (09:00)
[2024-02-21 09:23] LABS: CREATININE 7.7 mg/dL (0.6-1.3)
[2024-02-21] MEDS ORDERED: ALBUTEROL FS 2.5 MG/3 ML VIAL.NEB NEB PRN (09:30)
[2024-02-21] MEDS ORDERED: QUETIAPINE FUMARATE 25 MG TABLET PO SCH (10:30)
[2024-02-21 11:15] LABS: BASOPHILS # (AUTO) 0.1 K/uL (0.0-0.2); BASOPHILS % (AUTO) 0.6 % (0.0-2.0); EOSINOPHILS # (AUTO) 0.5 K/uL (0.0-0.7); EOSINOPHILS % (AUTO) 5.5 % (0.0-6.0); HEMATOCRIT 31 % (39-51); HEMOGLOBIN 10.4 g/dL (13.5-17.5); LYMPHOCYTES # (AUTO) 0.7 K/uL (0.8-4.8); LYMPHOCYTES % (AUTO) 7.3 % (20.0-44.0); MEAN CORPUSCULAR HEMOGLOBIN 32 PG (26.0-33.0); MEAN CORPUSCULAR HGB CONC 33 g/dl (31.0-36.0); MEAN CORPUSCULAR VOLUME 95 fL (80-96); MONOCYTES # (AUTO) 1.3 K/uL (0.1-1.30); MONOCYTES % (AUTO) 13.5 % (2.0-12.0); NEUTROPHILS # (AUTO) 6.9 K/uL (1.8-8.9); NEUTROPHILS % (AUTO) 73.1 % (43.0-81.0); PLATELET COUNT (AUTO) 147 K/uL (150-450); RED BLOOD CELL COUNT(AUTO) 3.29 MIL/uL (4.5-6.0); RED CELL DISTRIBUTION WIDTH 14.7 % (11.5-15.0); WHITE BLOOD COUNT (AUTO) 9.4 K/uL (4.3-11.0)
[2024-02-21] MEDS: Magnesium 1GM/D5W 100ML PREMIX 100 ML IV SCH (13:58)
[2024-02-21] MEDS ORDERED: Magnesium 1 GM/2 ML VIAL IV SCH (14:00)
[2024-02-21 16:00] VITALS: BP 125/68; TEMP 98.8; O2SAT 95
[2024-02-21 18:59] LABS: THYROID STIMULATING HORMONE 0.179 uIU/mL (0.358-3.74)
[2024-02-21 21:10] VITALS: BP 106/93; TEMP 98.4; O2SAT 94
[2024-02-21 21:11] VITALS: BP 117/69; TEMP 98.1; O2SAT 99
[2024-02-21] MEDS: ATORVASTATIN 40 MG TABLET PO SCH (21:42)
[2024-02-22] VITALS: BP 102/66; TEMP 98.2; O2SAT 95
[2024-02-22 04:00] VITALS: BP 103/47; TEMP 97.8; O2SAT 94
[2024-02-22 08:00] VITALS: BP 103/58; TEMP 97.7; O2SAT 94
[2024-02-22] MEDS: HYDROCODONE/APAP 5/325MG TABLET PO PRN (09:01)
[2024-02-22 09:12] LABS: PTH, INTACT 209 pg/mL (15-65)
[2024-02-22 11:08] LABS: *SPE A/G RATIO 0.6 (0.7-1.7); *SPE ALBUMIN 2.3 g/dL (2.9-4.4); *SPE ALPHA-1-GLOBULIN 0.3 g/dL (0.0-0.4); *SPE ALPHA-2-GLOBULIN 0.8 g/dL (0.4-1.0); *SPE BETA GLOBULIN 0.8 g/dL (0.7-1.3); *SPE GLOBULIN, TOTAL 4.1 g/dL (2.2-3.9); *SPE M-SPIKE 0.9 g/dL (Not Observed); *SPE PROTEIN TOTAL 6.4 g/dL (6.0-8.5); *SPEGAMMA GLOBULIN 2.1 g/dL (0.4-1.8)
[2024-02-22 12:00] VITALS: BP 100/63; TEMP 97.9; O2SAT 97
[2024-02-22 12:20] LABS: CALCIUM, SERUM 8.2 mg/dL (8.5-10.1); MAGNESIUM 2.3 mg/dL (1.8-2.4); PHOSPHORUS 5.6 mg/dL (2.5-4.9)
[2024-02-22 13:21] LABS: POTASSIUM 2.8 mmol/L (3.5-5.1)
[2024-02-22 13:42] LABS: BASOPHILS % (AUTO) 0.4 % (0.0-2.0); EOSINOPHILS # (AUTO) 0.7 K/uL (0.0-0.7); EOSINOPHILS % (AUTO) 7.7 % (0.0-6.0); HEMATOCRIT 32 % (39-51); HEMOGLOBIN 10.6 g/dL (13.5-17.5); LYMPHOCYTES # (AUTO) 0.4 K/uL (0.8-4.8); LYMPHOCYTES % (AUTO) 5.1 % (20.0-44.0); MEAN CORPUSCULAR HEMOGLOBIN 32 PG (26.0-33.0); MEAN CORPUSCULAR HGB CONC 33 g/dl (31.0-36.0); MEAN CORPUSCULAR VOLUME 97 fL (80-96); MONOCYTES # (AUTO) 1.3 K/uL (0.1-1.30); MONOCYTES % (AUTO) 14.4 % (2.0-12.0); NEUTROPHILS # (AUTO) 6.4 K/uL (1.8-8.9); NEUTROPHILS % (AUTO) 72.4 % (43.0-81.0); PLATELET COUNT (AUTO) 153 K/uL (150-450); RED BLOOD CELL COUNT(AUTO) 3.35 MIL/uL (4.5-6.0); RED CELL DISTRIBUTION WIDTH 14.6 % (11.5-15.0); WHITE BLOOD COUNT (AUTO) 8.8 K/uL (4.3-11.0)
[2024-02-22 16:00] VITALS: BP 101/53; TEMP 98.3; O2SAT 99
[2024-02-22] MEDS: VANCOMYCIN 1 GM in IV D5W 250 ML IV SCH (17:08)
[2024-02-22] MEDS: POTASSIUM CHLORIDE 20 MEQ TAB.PRT.SR PO ONE (17:10)
[2024-02-23] MEDS: QUETIAPINE FUMARATE 25 MG TABLET PO PRN (04:00)
[2024-02-23 07:25] LABS: BASOPHILS % (AUTO) 0.4 % (0.0-2.0); EOSINOPHILS # (AUTO) 0.7 K/uL (0.0-0.7); EOSINOPHILS % (AUTO) 9.8 % (0.0-6.0); HEMATOCRIT 31 % (39-51); HEMOGLOBIN 10.2 g/dL (13.5-17.5); LYMPHOCYTES # (AUTO) 0.6 K/uL (0.8-4.8); LYMPHOCYTES % (AUTO) 8.3 % (20.0-44.0); MEAN CORPUSCULAR HEMOGLOBIN 32 PG (26.0-33.0); MEAN CORPUSCULAR HGB CONC 33 g/dl (31.0-36.0); MEAN CORPUSCULAR VOLUME 97 fL (80-96); MONOCYTES % (AUTO) 13.9 % (2.0-12.0); NEUTROPHILS # (AUTO) 5.1 K/uL (1.8-8.9); NEUTROPHILS % (AUTO) 67.6 % (43.0-81.0); PLATELET COUNT (AUTO) 142 K/uL (150-450); RED BLOOD CELL COUNT(AUTO) 3.18 MIL/uL (4.5-6.0); RED CELL DISTRIBUTION WIDTH 14.5 % (11.5-15.0); WHITE BLOOD COUNT (AUTO) 7.6 K/uL (4.3-11.0)
[2024-02-23 08:00] VITALS: BP 111/76; TEMP 98.8; O2SAT 96
[2024-02-23 08:06] LABS: FOLIC ACID 8.6 ng/mL (>3.0)
[2024-02-23 08:23] LABS: CALCIUM, SERUM 8.5 mg/dL (8.5-10.1); CREATININE 3.6 mg/dL (0.6-1.3); PHOSPHORUS 5.2 mg/dL (2.5-4.9); POTASSIUM 3.2 mmol/L (3.5-5.1)
[2024-02-23] MEDS ORDERED: POTASSIUM CHLORIDE 20 MEQ TAB.PRT.SR PO ONE (10:30)
[2024-02-23] MEDS: POTASSIUM CL. PREMIX PERIPHER. 50 ML IV SCH (13:06)
[2024-02-23] MEDS: POTASSIUM CHLORIDE 20 MEQ TAB.PRT.SR PO ONE (19:39)
[2024-02-23 20:00] VITALS: BP 96/63; TEMP 97.8; O2SAT 95
[2024-02-24] VITALS: BP_SYST 111; BP_SYST 90; BP_DIAS 55; BP_DIAS 74; TEMP 98; O2SAT 98; O2SAT 99
[2024-02-24 04:00] VITALS: BP 111/74; TEMP 98; O2SAT 99
[2024-02-24 08:00] VITALS: BP 130/75; TEMP 98.2; O2SAT 99
[2024-02-24 08:01] LABS: ABG OXYGEN SATURATION 91.1 % (92.0-98.5); ABG PCO2 44.3 mmHg (35.0-45.0); ABG PH 7.481 (7.350-7.450); ABG TOTAL HEMOGLOBIN 11.5 G/dL (13.5-18.0); AaDO2 35.7 mmHg; COHb 0.1 % (0.5-1.5); MetHb 0.1 % (0.0-1.5); O2Hb 90.9 % (94.0-97.0); SITE, ABG Left Radial; VENT MODE, BG ROOM AIR
[2024-02-24 10:56] LABS: CALCIUM, SERUM 8.8 mg/dL (8.5-10.1); POTASSIUM 3.3 mmol/L (3.5-5.1)
[2024-02-24 12:00] VITALS: BP 106/63; TEMP 98.7; O2SAT 94
[2024-02-24] MEDS ORDERED: VANCOMYCIN 1 GM in IV D5W 250 ML IV SCH (15:00)
[2024-02-24 16:00] VITALS: BP 103/71; TEMP 98.3; O2SAT 100
[2024-02-24] MEDS: POTASSIUM CHLORIDE 20 MEQ TAB.PRT.SR PO ONE (17:57)
[2024-02-24 20:00] VITALS: BP 110/75; TEMP 98.2; O2SAT 95
[2024-02-25] VITALS: BP 100/82; TEMP 97.9; O2SAT 94
[2024-02-25 04:00] VITALS: BP 104/71; TEMP 98.1; O2SAT 95
[2024-02-25 07:52] LABS: BASOPHILS % (AUTO) 0.4 % (0.0-2.0); EOSINOPHILS # (AUTO) 0.7 K/uL (0.0-0.7); EOSINOPHILS % (AUTO) 6.3 % (0.0-6.0); HEMATOCRIT 35 % (39-51); HEMOGLOBIN 10.9 g/dL (13.5-17.5); LYMPHOCYTES # (AUTO) 0.6 K/uL (0.8-4.8); LYMPHOCYTES % (AUTO) 5.8 % (20.0-44.0); MEAN CORPUSCULAR HEMOGLOBIN 32 PG (26.0-33.0); MEAN CORPUSCULAR HGB CONC 31 g/dl (31.0-36.0); MEAN CORPUSCULAR VOLUME 101 fL (80-96); MONOCYTES # (AUTO) 1.5 K/uL (0.1-1.30); MONOCYTES % (AUTO) 13.6 % (2.0-12.0); NEUTROPHILS # (AUTO) 8.2 K/uL (1.8-8.9); NEUTROPHILS % (AUTO) 73.9 % (43.0-81.0); PLATELET COUNT (AUTO) 155 K/uL (150-450); RED BLOOD CELL COUNT(AUTO) 3.43 MIL/uL (4.5-6.0); RED CELL DISTRIBUTION WIDTH 15.1 % (11.5-15.0); WHITE BLOOD COUNT (AUTO) 11.1 K/uL (4.3-11.0)
[2024-02-25 08:00] VITALS: BP 109/56; TEMP 99.4; O2SAT 96
[2024-02-25 08:40] LABS: CALCIUM, SERUM 8.4 mg/dL (8.5-10.1); CREATININE 2.5 mg/dL (0.6-1.3); MAGNESIUM 1.5 mg/dL (1.8-2.4); POTASSIUM 4.3 mmol/L (3.5-5.1)
[2024-02-25 08:56] LABS: PHOSPHORUS 3.3 mg/dL (2.5-4.9)
[2024-02-25 12:00] VITALS: BP 112/63; TEMP 99.4; O2SAT 97
[2024-02-25] MEDS ORDERED: VANCOMYCIN 0.75 GM in IV D5W 250 ML IV SCH (15:00)
[2024-02-25] MEDS: VANCOMYCIN 0.75 GM in IV D5W 250 ML IV SCH (18:53)
[2024-02-25 20:00] VITALS: BP 91/67; TEMP 98.5; O2SAT 95
[2024-02-26] VITALS: BP 110/67; TEMP 98.4; O2SAT 95
[2024-02-26 04:00] VITALS: BP 105/61; TEMP 98.3; O2SAT 96
[2024-02-26 04:30] VITALS: BP 105/61; TEMP 98.3; O2SAT 96
[2024-02-26 07:24] LABS: BASOPHILS % (AUTO) 0.4 % (0.0-2.0); EOSINOPHILS # (AUTO) 0.6 K/uL (0.0-0.7); EOSINOPHILS % (AUTO) 6.9 % (0.0-6.0); HEMATOCRIT 28 % (39-51); HEMOGLOBIN 9.3 g/dL (13.5-17.5); LYMPHOCYTES # (AUTO) 0.6 K/uL (0.8-4.8); LYMPHOCYTES % (AUTO) 6.8 % (20.0-44.0); MEAN CORPUSCULAR HEMOGLOBIN 32 PG (26.0-33.0); MEAN CORPUSCULAR HGB CONC 33 g/dl (31.0-36.0); MEAN CORPUSCULAR VOLUME 97 fL (80-96); MONOCYTES # (AUTO) 0.9 K/uL (0.1-1.30); MONOCYTES % (AUTO) 10.1 % (2.0-12.0); NEUTROPHILS # (AUTO) 6.8 K/uL (1.8-8.9); NEUTROPHILS % (AUTO) 75.8 % (43.0-81.0); PLATELET COUNT (AUTO) 146 K/uL (150-450); RED CELL DISTRIBUTION WIDTH 14.1 % (11.5-15.0)
[2024-02-26 08:00] VITALS: BP 109/63; TEMP 98.2; O2SAT 94
[2024-02-26 08:00] LABS: CALCIUM, SERUM 8.1 mg/dL (8.5-10.1); CREATININE 2.4 mg/dL (0.6-1.3); PHOSPHORUS 3.2 mg/dL (2.5-4.9); POTASSIUM 3.3 mmol/L (3.5-5.1)
[2024-02-26 09:14] VITALS: BP 109/63
[2024-02-26 09:44] LABS: MAGNESIUM 1.2 mg/dL (1.8-2.4)
[2024-02-26] MEDS: Magnesium 1GM/D5W 100ML PREMIX 100 ML IV SCH (11:48)
== END 2024-02-26 14:00 | disposition home health service (06) | DRG 640 ==
LOC: ER 13:11 → TELE 14:46 → ICU 15:47 → TELE 02-19 14:03
PROVIDERS: ADMIT Nurse Practitioner Acute Care; ATTEND Internal Medicine
PROC: 05HM33Z Insertion of Infusion Device into Right Internal Jugular Vein, Percutaneous Approach (ICD-10-PCS; principal; 2024-02-18)
PROC: B543ZZA Ultrasonography of Right Jugular Veins, Guidance (ICD-10-PCS; 2024-02-18)
PROC: 5A1D70Z Performance of Urinary Filtration, Intermittent, Less than 6 Hours Per Day (ICD-10-PCS; 2024-02-18)
PROC: 05HB33Z Insertion of Infusion Device into Right Basilic Vein, Percutaneous Approach (ICD-10-PCS; 2024-02-24)
DX: E87.5 Hyperkalemia (principal); G93.41 Metabolic encephalopathy; N17.0 Acute kidney failure with tubular necrosis; I13.0 Hypertensive heart and chronic kidney disease with heart failure and stage 1 through stage 4 chronic kidney disease, or unspecified chronic kidney disease; I50.32 Chronic diastolic (congestive) heart failure; D68.59 Other primary thrombophilia; R65.10 Systemic inflammatory response syndrome (SIRS) of non-infectious origin without acute organ dysfunction; E87.1 Hypo-osmolality and hyponatremia; E87.20 Acidosis, unspecified; N18.9 Chronic kidney disease, unspecified; I48.91 Unspecified atrial fibrillation; E11.22 Type 2 diabetes mellitus with diabetic chronic kidney disease; E11.42 Type 2 diabetes mellitus with diabetic polyneuropathy; E78.5 Hyperlipidemia, unspecified; Z90.49 Acquired absence of other specified parts of digestive tract; Z93.3 Colostomy status; Z79.01 Long term (current) use of anticoagulants; Z79.51 Long term (current) use of inhaled steroids; Z79.899 Other long term (current) drug therapy; Z91.199 Patient's noncompliance with other medical treatment and regimen due to unspecified reason; D63.8 Anemia in other chronic diseases classified elsewhere; E66.01 Morbid (severe) obesity due to excess calories; E86.1 Hypovolemia; E87.6 Hypokalemia; F29 Unspecified psychosis not due to a substance or known physiological condition; F32.A Depression, unspecified; J44.9 Chronic obstructive pulmonary disease, unspecified; Z68.35 Body mass index [BMI] 35.0-35.9, adult
CPT/HCPCS: 36415; 36600; 70450-TC; 71045-TC; 76770-TC; 80048-TC; 80053-TC; 80061-TC; 80076-TC; 80202-TC; 82140-TC; 82550-TC; 82570-TC; 82607-TC; 82962-TC; 83605-TC; 83735-TC; 83921; 83970; 84100-TC; 84155; 84165; 84300-TC; 84439-TC; 84443-TC; 84484-TC; 85025-TC; 86706; 87040-TC; 87340; 90935-TC; 93880-TC; 97112-TC; 97530-TC; A4216; A4223; A6403; G0378; J0692; J1815; J2270; J2405; J3370; J3475; J3480; J3490; J7030; J7040; J7050; J7060; J7070; P9047

== ENCOUNTER 2024-03-02 17:09 | Emergency (ER) | payer MEDICARE, OTHER ==
[~2024-03-02] VITALS: Ht 182.9 cm; Wt 109.8 kg
[~2024-03-02 17:09] MED LIST changes: -PANT40TA2 PO; -ZOLP5TAB2 PO
[2024-03-02 17:46] LABS: BASOPHILS # (AUTO) 0.1 K/uL (0.0-0.2); BASOPHILS % (AUTO) 1.1 % (0.0-2.0); EOSINOPHILS # (AUTO) 0.4 K/uL (0.0-0.7); EOSINOPHILS % (AUTO) 5.4 % (0.0-6.0); HEMATOCRIT 28 % (39-51); LYMPHOCYTES # (AUTO) 0.7 K/uL (0.8-4.8); LYMPHOCYTES % (AUTO) 8.6 % (20.0-44.0); MEAN CORPUSCULAR HEMOGLOBIN 32 PG (26.0-33.0); MEAN CORPUSCULAR HGB CONC 32 g/dl (31.0-36.0); MEAN CORPUSCULAR VOLUME 99 fL (80-96); MONOCYTES # (AUTO) 0.7 K/uL (0.1-1.30); MONOCYTES % (AUTO) 8.9 % (2.0-12.0); NEUTROPHILS # (AUTO) 6.1 K/uL (1.8-8.9); PLATELET COUNT (AUTO) 224 K/uL (150-450); RED BLOOD CELL COUNT(AUTO) 2.81 MIL/uL (4.5-6.0); RED CELL DISTRIBUTION WIDTH 14.6 % (11.5-15.0); WHITE BLOOD COUNT (AUTO) 8.1 K/uL (4.3-11.0)
[2024-03-02] MEDS ORDERED: ONDANSETRON 4 MG TAB.RAPDIS ONE (17:57)
[2024-03-02] MEDS: ONDANSETRON 4 MG TAB.RAPDIS SL ONE (17:59)
[2024-03-02 18:06] LABS: CALCIUM, SERUM 8.3 mg/dL (8.5-10.1); CARBON DIOXIDE 23 mmol/L (21-32); CHLORIDE 108 mmol/L (98-107); CREATININE 3.7 mg/dL (0.6-1.3); GLUCOSE 92 mg/dL (74-106); POTASSIUM 5.9 mmol/L (3.5-5.1); SODIUM SERUM 140 mmol/L (136-145); UREA NITROGEN, BLOOD 61 mg/dL (7-18)
[2024-03-02 18:15] VITALS: TEMP 98
[2024-03-02] MEDS ORDERED: SODIUM POLYSTYRENE SULFONATE 15 G/60 ML BOTTLE ONE (18:44)
[2024-03-02] MEDS: SODIUM POLYSTYRENE SULFONATE 15 G/60 ML BOTTLE PO ONE (18:50)
[2024-03-02 20:29] VITALS: BP 130/70; O2SAT 98
== END 2024-03-02 20:38 | disposition home or self-care (01) ==
LOC: ER 17:12
DX: G89.29 Other chronic pain (principal); R10.9 Unspecified abdominal pain; E87.5 Hyperkalemia; I12.9 Hypertensive chronic kidney disease with stage 1 through stage 4 chronic kidney disease, or unspecified chronic kidney disease; E11.22 Type 2 diabetes mellitus with diabetic chronic kidney disease; N18.9 Chronic kidney disease, unspecified; E78.5 Hyperlipidemia, unspecified; I48.91 Unspecified atrial fibrillation; Z60.2 Problems related to living alone; Z79.899 Other long term (current) drug therapy
CPT/HCPCS: 99285; 71045; 93005 ×3; 85025; 80048; 36415; 84484 ×2; Q0162

== ENCOUNTER 2024-03-11 13:45 | Emergency (ER) | payer MEDICARE, OTHER ==
[~2024-03-11] VITALS: Ht 182.9 cm; Wt 104.8 kg
[2024-03-11 13:58] VITALS: TEMP 98.5
[2024-03-11] MEDS: IV NS 0.9% 500 ML BAG IV ONE (15:45)
[2024-03-11] MEDS ORDERED: ACETAMINOPHEN ES 500 MG TABLET ONE (15:50)
[2024-03-11] MEDS: ACETAMINOPHEN ES 500 MG TABLET PO ONE (15:55)
[2024-03-11 16:12] LABS: BASOPHILS % (AUTO) 0.7 % (0.0-2.0); EOSINOPHILS # (AUTO) 0.1 K/uL (0.0-0.7); EOSINOPHILS % (AUTO) 1.7 % (0.0-6.0); HEMATOCRIT 34 % (39-51); HEMOGLOBIN 11.1 g/dL (13.5-17.5); LYMPHOCYTES # (AUTO) 0.7 K/uL (0.8-4.8); LYMPHOCYTES % (AUTO) 10.2 % (20.0-44.0); MEAN CORPUSCULAR HEMOGLOBIN 31 PG (26.0-33.0); MEAN CORPUSCULAR HGB CONC 33 g/dl (31.0-36.0); MEAN CORPUSCULAR VOLUME 96 fL (80-96); MONOCYTES # (AUTO) 0.7 K/uL (0.1-1.30); MONOCYTES % (AUTO) 9.7 % (2.0-12.0); NEUTROPHILS # (AUTO) 5.4 K/uL (1.8-8.9); NEUTROPHILS % (AUTO) 77.7 % (43.0-81.0); PLATELET COUNT (AUTO) 431 K/uL (150-450); RED BLOOD CELL COUNT(AUTO) 3.52 MIL/uL (4.5-6.0); RED CELL DISTRIBUTION WIDTH 15.3 % (11.5-15.0)
[2024-03-11 16:25] LABS: INR 1.01 (0.91-1.10); PARTIAL THROMBOPLASTIN TIME 29.2 SEC (24.3-34.3); PROTHROMBIN TIME 10.4 SECS (9.2-11.1)
[2024-03-11 16:30] LABS: LACTIC ACID 1.2 mmol/L (0.4-2.0)
[2024-03-11 16:40] LABS: ALANINE AMINOTRANSFERASE 48 U/L (12-78); ALBUMIN 3.6 g/dL (3.4-5.0); ALKALINE PHOSPHATASE 87 U/L (46-116); ASPARTATE AMINOTRANSFERASE 20 U/L (15-37); BILIRUBIN,DIRECT 0.1 mg/dL (0.0-0.2); BILIRUBIN,TOTAL 0.4 mg/dL (0.2-1.0); CALCIUM, SERUM 9.8 mg/dL (8.5-10.1); CARBON DIOXIDE 21 mmol/L (21-32); CHLORIDE 93 mmol/L (98-107); GLUCOSE 105 mg/dL (74-106); SODIUM SERUM 128 mmol/L (136-145); TOTAL PROTEIN, SERUM 9.4 g/dL (6.4-8.2)
[2024-03-11 16:42] LABS: POTASSIUM 6.3 mmol/L (3.5-5.1)
[2024-03-11 16:43] LABS: UREA NITROGEN, BLOOD 113 mg/dL (7-18)
[2024-03-11 17:19] LABS: APPEARANCE,URINE Clear (CLEAR); BILIRUBIN,URINE Negative (NEGATIVE); BLOOD, URINE Negative Ery/uL (NEGATIVE); COLOR,URINE YELLOW (YELLOW); KETONES,URINE Trace mg/dL (NEGATIVE); LEUKOCYTE ESTERASE ,URINE Small (NEGATIVE); NITRITE, URINE Negative (NEGATIVE); PROTEIN,URINE Negative (NEGATIVE); UGLUCOSE Negative (NEGATIVE); UROBILINOGEN,URINE 0.2 EU/dL (0.2)
[2024-03-11 17:29] LABS: ADD URINE CULTURE YES; BACTERIA,URINE Few /HPF (None Seen); RBC,URINE 0-2 /HPF (0-2)
[2024-03-11 17:30] LABS: SQUAMOUS EPITHELIAL CELL,UR Moderate /HPF (None Seen)
[2024-03-11] MEDS ORDERED: INSULIN REGULAR, HUMAN 100 UNIT/ML 10 ML VIAL ONE (17:32)
[2024-03-11] MEDS ORDERED: SODIUM BICARBONATE SYR 50 MEQ/50 ML DISP.SYRIN ONE (17:32)
[2024-03-11] MEDS ORDERED: DEXTROSE 50%-WATER 50 ML DISP.SYRIN ONE (17:33)
[2024-03-11] MEDS: DEXTROSE 50%-WATER 50 ML DISP.SYRIN IV ONE (17:43)
[2024-03-11] MEDS: INSULIN REGULAR, HUMAN 100 UNIT/ML 10 ML VIAL IV ONE (17:43)
[2024-03-11] MEDS: SODIUM BICARBONATE SYR 50 MEQ/50 ML DISP.SYRIN IV ONE (17:44)
[2024-03-11] MEDS ORDERED: ALBUTEROL FS 2.5 MG/3 ML VIAL.NEB ONE (17:51)
[2024-03-11 18:08] VITALS: O2SAT 97
[2024-03-11] MEDS: ALBUTEROL FS 2.5 MG/3 ML VIAL.NEB NEB ONE (18:08)
[2024-03-11 18:25] VITALS: O2SAT 99
[2024-03-11 18:32] VITALS: BP 120/67; O2SAT 97
== END 2024-03-11 18:30 | disposition left against medical advice (07) ==
LOC: ER 13:48
DX: E87.5 Hyperkalemia (principal); I13.10 Hypertensive heart and chronic kidney disease without heart failure, with stage 1 through stage 4 chronic kidney disease, or unspecified chronic kidney disease; E11.22 Type 2 diabetes mellitus with diabetic chronic kidney disease; E11.40 Type 2 diabetes mellitus with diabetic neuropathy, unspecified; N18.9 Chronic kidney disease, unspecified; R07.89 Other chest pain; Z87.19 Personal history of other diseases of the digestive system; Z87.39 Personal history of other diseases of the musculoskeletal system and connective tissue; Z60.2 Problems related to living alone; F10.10 Alcohol abuse, uncomplicated; Y90.9 Presence of alcohol in blood, level not specified
CPT/HCPCS: 99285; 71045; 93005; 84145; 85025; 80048; 87040 ×2; 87086; 83605; 80076; 81001; 36415; 84484; 85730; 94644; J1815; J3490

== ENCOUNTER 2024-04-30 20:28 | Inpatient (IN) | payer MEDICARE, OTHER ==
[~2024-04-30] VITALS: Ht 182.9 cm; Wt 117.9 kg
[2024-04-30] MEDS: ASPIRIN 325 MG TABLET PO ONE (21:02)
[2024-04-30] MEDS: NITROGLYCERIN 0.4 MG/TAB BOTTLE SL ONE (21:02)
[2024-04-30 21:24] LABS: BASOPHILS # (AUTO) 0.1 K/uL (0.0-0.2); BASOPHILS % (AUTO) 1.3 % (0.0-2.0); EOSINOPHILS # (AUTO) 0.3 K/uL (0.0-0.7); EOSINOPHILS % (AUTO) 3.7 % (0.0-6.0); HEMATOCRIT 26 % (39-51); HEMOGLOBIN 8.6 g/dL (13.5-17.5); LYMPHOCYTES # (AUTO) 1.1 K/uL (0.8-4.8); LYMPHOCYTES % (AUTO) 13.5 % (20.0-44.0); MEAN CORPUSCULAR HEMOGLOBIN 33 PG (26.0-33.0); MEAN CORPUSCULAR HGB CONC 33 g/dl (31.0-36.0); MEAN CORPUSCULAR VOLUME 99 fL (80-96); MONOCYTES # (AUTO) 1.2 K/uL (0.1-1.30); MONOCYTES % (AUTO) 14.8 % (2.0-12.0); NEUTROPHILS # (AUTO) 5.5 K/uL (1.8-8.9); NEUTROPHILS % (AUTO) 66.7 % (43.0-81.0); PLATELET COUNT (AUTO) 366 K/uL (150-450); RED BLOOD CELL COUNT(AUTO) 2.62 MIL/uL (4.5-6.0); RED CELL DISTRIBUTION WIDTH 17.2 % (11.5-15.0); WHITE BLOOD COUNT (AUTO) 8.3 K/uL (4.3-11.0)
[2024-04-30 21:37] LABS: CALCIUM, SERUM 9.9 mg/dL (8.5-10.1); CARBON DIOXIDE 28 mmol/L (21-32); CHLORIDE 99 mmol/L (98-107); CREATININE 3.5 mg/dL (0.6-1.3); GLUCOSE 102 mg/dL (74-106); POTASSIUM 5.7 mmol/L (3.5-5.1); SODIUM SERUM 136 mmol/L (136-145); UREA NITROGEN, BLOOD 48 mg/dL (7-18)
[2024-04-30 21:49] LABS: NT-PRO BNP 1102 pg/mL (0-125)
[2024-04-30] MEDS ORDERED: CALCIUM CHLORIDE 1,000 MG/10 ML DISP.SYRIN ONE (22:05)
[2024-04-30] MEDS: CALCIUM CHLORIDE 1,000 MG/10 ML DISP.SYRIN IV ONE (22:12)
[2024-04-30] MEDS ORDERED: MAG HYDROX/AL HYDROX/SIMETH 30 ML UDC PO PRN (23:30)
[2024-04-30] MEDS ORDERED: NITROGLYCERIN 0.4 MG/TAB BOTTLE SL PRN (23:30)
[2024-04-30] MEDS ORDERED: ENOXAPARIN SODIUM 40 MG/0.4 ML DISP.SYRIN SQ SCH (23:30)
[2024-04-30] MEDS ORDERED: Z GUARD REMEDY 4 OZ OINT TP PRN (23:30)
[2024-04-30] MEDS ORDERED: MAGNESIUM HYDROXIDE 30 ML UDC PO PRN (23:30)
[2024-04-30] MEDS ORDERED: ZOLPIDEM TARTRATE 5 MG TABLET PO PRN (23:30)
[2024-04-30] MEDS ORDERED: ONDANSETRON HCL/PF 4 MG/2 ML VIAL IVP PRN (23:30)
[2024-04-30] MEDS ORDERED: ALBUTEROL FS 2.5 MG/3 ML VIAL.NEB NEB PRN (23:45)
[2024-05-01] VITALS: BP 118/66; TEMP 98.3; O2SAT 96
[2024-05-01] MEDS: FUROSEMIDE 40 MG TABLET PO SCH (00:26)
[2024-05-01] MEDS: ATORVASTATIN 40 MG TABLET PO SCH (00:26)
[2024-05-01] MEDS: APIXABAN 5 MG TABLET PO SCH (00:28)
[2024-05-01] MEDS: SERTRALINE HCL 50 MG TABLET PO SCH (00:28)
[2024-05-01] MEDS: MORPHINE SULFATE INJ 2 MG/ML DISP.SYRIN IVP PRN ×2 (00:39→07:00)
[2024-05-01] MEDS: ACETAMINOPHEN 325 MG TABLET PO PRN (03:21)
[2024-05-01 04:00] VITALS: BP 125/72; TEMP 98.5; O2SAT 98
[2024-05-01 07:43] LABS: BASOPHILS # (AUTO) 0.1 K/uL (0.0-0.2); BASOPHILS % (AUTO) 1.1 % (0.0-2.0); EOSINOPHILS # (AUTO) 0.4 K/uL (0.0-0.7); EOSINOPHILS % (AUTO) 6.5 % (0.0-6.0); HEMATOCRIT 25 % (39-51); HEMOGLOBIN 8.4 g/dL (13.5-17.5); MEAN CORPUSCULAR HEMOGLOBIN 33 PG (26.0-33.0); MEAN CORPUSCULAR HGB CONC 33 g/dl (31.0-36.0); MEAN CORPUSCULAR VOLUME 99 fL (80-96); MONOCYTES % (AUTO) 15.5 % (2.0-12.0); NEUTROPHILS # (AUTO) 4.1 K/uL (1.8-8.9); NEUTROPHILS % (AUTO) 61.9 % (43.0-81.0); PLATELET COUNT (AUTO) 315 K/uL (150-450); RED BLOOD CELL COUNT(AUTO) 2.58 MIL/uL (4.5-6.0); RED CELL DISTRIBUTION WIDTH 16.5 % (11.5-15.0); WHITE BLOOD COUNT (AUTO) 6.6 K/uL (4.3-11.0)
[2024-05-01 08:00] VITALS: BP 112/71; TEMP 98.2; O2SAT 95
[2024-05-01] MEDS: PANTOPRAZOLE 40 MG TABLET.DR PO SCH (08:25)
[2024-05-01] MEDS: PREGABALIN 25 MG CAPSULE PO SCH (08:38)
[2024-05-01] MEDS: ASPIRIN 325 MG TABLET PO SCH (08:39)
[2024-05-01] MEDS: METOPROLOL TARTRATE 25 MG TABLET PO SCH (08:41)
[2024-05-01 08:46] LABS: THYROID STIMULATING HORMONE 1.2 uIU/mL (0.358-3.74)
[2024-05-01 09:03] LABS: ALBUMIN 2.4 g/dL (3.4-5.0); BILIRUBIN,DIRECT 0.1 mg/dL (0.0-0.2); BILIRUBIN,TOTAL 0.3 mg/dL (0.2-1.0); CALCIUM, SERUM 9.5 mg/dL (8.5-10.1); CREATININE 3.4 mg/dL (0.6-1.3); MAGNESIUM 1.5 mg/dL (1.8-2.4); PHOSPHORUS 5.1 mg/dL (2.5-4.9); POTASSIUM 4.7 mmol/L (3.5-5.1); TOTAL PROTEIN, SERUM 7.7 g/dL (6.4-8.2)
[2024-05-01] MEDS: Magnesium 1GM/D5W 100ML PREMIX 100 ML IV SCH (11:04)
[2024-05-01 12:00] VITALS: BP 96/70; TEMP 97.5; O2SAT 96
[2024-05-01 16:00] VITALS: BP 96/70; TEMP 97.7; O2SAT 96
[2024-05-01] MEDS: FUROSEMIDE 20 MG/2 ML VIAL IV SCH (19:16)
[2024-05-01 20:00] VITALS: BP 105/73; TEMP 98.3; O2SAT 98
[2024-05-02] VITALS: BP 119/81; TEMP 98.5; O2SAT 94
[2024-05-02 04:00] VITALS: BP 114/58; TEMP 98.1; O2SAT 95
[2024-05-02 06:52] LABS: BASOPHILS % (AUTO) 0.4 % (0.0-2.0); EOSINOPHILS # (AUTO) 0.4 K/uL (0.0-0.7); EOSINOPHILS % (AUTO) 4.8 % (0.0-6.0); HEMATOCRIT 26 % (39-51); HEMOGLOBIN 8.6 g/dL (13.5-17.5); LYMPHOCYTES # (AUTO) 0.5 K/uL (0.8-4.8); LYMPHOCYTES % (AUTO) 6.8 % (20.0-44.0); MEAN CORPUSCULAR HEMOGLOBIN 33 PG (26.0-33.0); MEAN CORPUSCULAR HGB CONC 33 g/dl (31.0-36.0); MEAN CORPUSCULAR VOLUME 99 fL (80-96); MONOCYTES # (AUTO) 0.8 K/uL (0.1-1.30); MONOCYTES % (AUTO) 11.1 % (2.0-12.0); NEUTROPHILS # (AUTO) 5.7 K/uL (1.8-8.9); NEUTROPHILS % (AUTO) 76.9 % (43.0-81.0); PLATELET COUNT (AUTO) 326 K/uL (150-450); RED BLOOD CELL COUNT(AUTO) 2.63 MIL/uL (4.5-6.0); WHITE BLOOD COUNT (AUTO) 7.4 K/uL (4.3-11.0)
[2024-05-02 07:31] LABS: ALBUMIN 2.5 g/dL (3.4-5.0); BILIRUBIN,TOTAL 0.3 mg/dL (0.2-1.0); CALCIUM, SERUM 9.1 mg/dL (8.5-10.1); CREATININE 2.5 mg/dL (0.6-1.3); MAGNESIUM 1.8 mg/dL (1.8-2.4); PHOSPHORUS 4.2 mg/dL (2.5-4.9); POTASSIUM 4.1 mmol/L (3.5-5.1); TOTAL PROTEIN, SERUM 7.6 g/dL (6.4-8.2)
[2024-05-02 08:00] VITALS: BP 163/95; TEMP 97.9; O2SAT 95
[2024-05-02 12:00] VITALS: BP 114/75; TEMP 98.3; O2SAT 100
[2024-05-02] MEDS: NITROGLYCERIN 0.4 MG/TAB BOTTLE SL ONE (14:17)
[2024-05-02] MEDS: hydrALAZINE HCL 25 MG TABLET PO SCH (14:30)
[2024-05-02 16:00] VITALS: BP 105/62; TEMP 97.4; O2SAT 96
[2024-05-02 20:00] VITALS: BP 115/67; TEMP 99.1; O2SAT 97
[2024-05-03] VITALS: BP 102/62; TEMP 98.4; O2SAT 96
[2024-05-03 04:00] VITALS: BP 110/59; TEMP 99.1; O2SAT 96
[2024-05-03 07:07] LABS: PTH, INTACT 141 pg/mL (15-65)
[2024-05-03 07:33] LABS: ALBUMIN 2.3 g/dL (3.4-5.0); BILIRUBIN,TOTAL 0.4 mg/dL (0.2-1.0); CALCIUM, SERUM 9.1 mg/dL (8.5-10.1); CREATININE 2.4 mg/dL (0.6-1.3); MAGNESIUM 1.6 mg/dL (1.8-2.4); PHOSPHORUS 3.3 mg/dL (2.5-4.9); TOTAL PROTEIN, SERUM 7.9 g/dL (6.4-8.2)
[2024-05-03 07:47] LABS: BASOPHILS % (AUTO) 0.6 % (0.0-2.0); EOSINOPHILS # (AUTO) 0.3 K/uL (0.0-0.7); EOSINOPHILS % (AUTO) 4.7 % (0.0-6.0); HEMATOCRIT 28 % (39-51); HEMOGLOBIN 9.1 g/dL (13.5-17.5); LYMPHOCYTES # (AUTO) 0.7 K/uL (0.8-4.8); MEAN CORPUSCULAR HEMOGLOBIN 33 PG (26.0-33.0); MEAN CORPUSCULAR HGB CONC 32 g/dl (31.0-36.0); MEAN CORPUSCULAR VOLUME 101 fL (80-96); MONOCYTES # (AUTO) 0.8 K/uL (0.1-1.30); MONOCYTES % (AUTO) 13.3 % (2.0-12.0); NEUTROPHILS # (AUTO) 4.3 K/uL (1.8-8.9); NEUTROPHILS % (AUTO) 69.4 % (43.0-81.0); PLATELET COUNT (AUTO) 247 K/uL (150-450); RED CELL DISTRIBUTION WIDTH 16.6 % (11.5-15.0); WHITE BLOOD COUNT (AUTO) 6.2 K/uL (4.3-11.0)
[2024-05-03 08:00] VITALS: BP 102/65; TEMP 98.2; O2SAT 96
[2024-05-03] MEDS: MAGNESIUM OXIDE 400 MG TABLET PO ONE (09:53)
[2024-05-03 12:00] VITALS: BP 115/69; TEMP 98; O2SAT 96
[2024-05-03 16:00] VITALS: BP 119/69; TEMP 98; O2SAT 97
[2024-05-03 20:00] VITALS: BP 110/67; TEMP 98.8; O2SAT 97
[2024-05-04] VITALS: BP 119/70; TEMP 98.3; O2SAT 98
[2024-05-04 04:00] VITALS: BP 120/65; TEMP 98.2; O2SAT 96
[2024-05-04 07:31] LABS: BASOPHILS % (AUTO) 0.3 % (0.0-2.0); EOSINOPHILS # (AUTO) 0.4 K/uL (0.0-0.7); EOSINOPHILS % (AUTO) 4.6 % (0.0-6.0); HEMATOCRIT 28 % (39-51); HEMOGLOBIN 9.2 g/dL (13.5-17.5); LYMPHOCYTES # (AUTO) 0.7 K/uL (0.8-4.8); LYMPHOCYTES % (AUTO) 9.5 % (20.0-44.0); MEAN CORPUSCULAR HEMOGLOBIN 33 PG (26.0-33.0); MEAN CORPUSCULAR HGB CONC 33 g/dl (31.0-36.0); MEAN CORPUSCULAR VOLUME 100 fL (80-96); MONOCYTES % (AUTO) 12.5 % (2.0-12.0); NEUTROPHILS # (AUTO) 5.6 K/uL (1.8-8.9); NEUTROPHILS % (AUTO) 73.1 % (43.0-81.0); PLATELET COUNT (AUTO) 341 K/uL (150-450); RED BLOOD CELL COUNT(AUTO) 2.78 MIL/uL (4.5-6.0); RED CELL DISTRIBUTION WIDTH 15.9 % (11.5-15.0); WHITE BLOOD COUNT (AUTO) 7.7 K/uL (4.3-11.0)
[2024-05-04 07:53] LABS: ALBUMIN 2.3 g/dL (3.4-5.0); BILIRUBIN,TOTAL 0.3 mg/dL (0.2-1.0); CALCIUM, SERUM 9.5 mg/dL (8.5-10.1); CREATININE 2.4 mg/dL (0.6-1.3); MAGNESIUM 1.8 mg/dL (1.8-2.4); POTASSIUM 4.3 mmol/L (3.5-5.1); TOTAL PROTEIN, SERUM 8.1 g/dL (6.4-8.2)
[2024-05-04 08:00] VITALS: BP 114/77; TEMP 97.7; O2SAT 98
[2024-05-04 12:00] VITALS: BP 112/86; TEMP 98.2; O2SAT 96
[2024-05-04 16:00] VITALS: BP 104/69; TEMP 98.2; O2SAT 96
[2024-05-04 20:00] VITALS: BP 107/67; TEMP 98.2; O2SAT 98
[2024-05-05] VITALS: BP 133/79; TEMP 98.1; O2SAT 98
[2024-05-05 04:00] VITALS: BP 105/66; TEMP 98.4; O2SAT 97
[2024-05-05 06:58] LABS: BASOPHILS % (AUTO) 0.4 % (0.0-2.0); EOSINOPHILS # (AUTO) 0.4 K/uL (0.0-0.7); EOSINOPHILS % (AUTO) 4.9 % (0.0-6.0); HEMATOCRIT 29 % (39-51); HEMOGLOBIN 9.5 g/dL (13.5-17.5); LYMPHOCYTES # (AUTO) 1.1 K/uL (0.8-4.8); MEAN CORPUSCULAR HEMOGLOBIN 32 PG (26.0-33.0); MEAN CORPUSCULAR HGB CONC 33 g/dl (31.0-36.0); MEAN CORPUSCULAR VOLUME 99 fL (80-96); MONOCYTES # (AUTO) 0.8 K/uL (0.1-1.30); MONOCYTES % (AUTO) 10.3 % (2.0-12.0); NEUTROPHILS # (AUTO) 5.6 K/uL (1.8-8.9); NEUTROPHILS % (AUTO) 70.4 % (43.0-81.0); PLATELET COUNT (AUTO) 372 K/uL (150-450); RED BLOOD CELL COUNT(AUTO) 2.93 MIL/uL (4.5-6.0)
[2024-05-05 07:22] LABS: ALBUMIN 2.3 g/dL (3.4-5.0); BILIRUBIN,TOTAL 0.3 mg/dL (0.2-1.0); CALCIUM, SERUM 9.3 mg/dL (8.5-10.1); CREATININE 2.3 mg/dL (0.6-1.3); MAGNESIUM 1.6 mg/dL (1.8-2.4); PHOSPHORUS 3.2 mg/dL (2.5-4.9); POTASSIUM 3.8 mmol/L (3.5-5.1)
[2024-05-05 08:00] VITALS: BP 105/73; TEMP 98; O2SAT 98
[2024-05-05] MEDS: MAGNESIUM OXIDE 400 MG TABLET PO ONE (10:20)
[2024-05-05] MEDS ORDERED: ASPI-992 PO (10:32)
[2024-05-05] MEDS ORDERED: HYDR-4076 PO (10:32)
[2024-05-05 12:26] VITALS: BP 106/61
[2024-05-05 14:07] LABS: *SPE A/G RATIO 0.7 (0.7-1.7); *SPE ALBUMIN 2.9 g/dL (2.9-4.4); *SPE ALPHA-1-GLOBULIN 0.2 g/dL (0.0-0.4); *SPE BETA GLOBULIN 1.2 g/dL (0.7-1.3); *SPE GLOBULIN, TOTAL 4.1 g/dL (2.2-3.9); *SPE M-SPIKE Not Observed g/dL (Not Observed); *SPEGAMMA GLOBULIN 1.7 g/dL (0.4-1.8)
[2024-05-06] MEDS ORDERED: FUROSEMIDE 40 MG TABLET PO SCH (09:00)
== END 2024-05-05 13:58 | disposition home health service (06) | DRG 291 ==
LOC: ER 20:40 → TELE1 22:48 → TELE-TD 05-01 02:15 → TELE1 05-02 10:49
PROVIDERS: ADMIT Nurse Practitioner Family; ATTEND Internal Medicine
DX: I13.0 Hypertensive heart and chronic kidney disease with heart failure and stage 1 through stage 4 chronic kidney disease, or unspecified chronic kidney disease (principal); E43 Unspecified severe protein-calorie malnutrition; I50.23 Acute on chronic systolic (congestive) heart failure; N17.9 Acute kidney failure, unspecified; E87.1 Hypo-osmolality and hyponatremia; L03.116 Cellulitis of left lower limb; N18.4 Chronic kidney disease, stage 4 (severe); I48.91 Unspecified atrial fibrillation; E87.5 Hyperkalemia; E78.5 Hyperlipidemia, unspecified; E66.9 Obesity, unspecified; E11.42 Type 2 diabetes mellitus with diabetic polyneuropathy; D64.9 Anemia, unspecified; E11.22 Type 2 diabetes mellitus with diabetic chronic kidney disease; E88.09 Other disorders of plasma-protein metabolism, not elsewhere classified; I25.110 Atherosclerotic heart disease of native coronary artery with unstable angina pectoris; I48.0 Paroxysmal atrial fibrillation; I89.0 Lymphedema, not elsewhere classified; J44.9 Chronic obstructive pulmonary disease, unspecified; M89.8X9 Other specified disorders of bone, unspecified site; Z79.01 Long term (current) use of anticoagulants; Z90.49 Acquired absence of other specified parts of digestive tract; Z93.3 Colostomy status; Z68.35 Body mass index [BMI] 35.0-35.9, adult; I87.8 Other specified disorders of veins; M79.662 Pain in left lower leg; R55 Syncope and collapse; E83.42 Hypomagnesemia
CPT/HCPCS: 36415; 71045-TC; 76770-TC; 80048-TC; 80053-TC; 80061-TC; 80076-TC; 82550-TC; 83735-TC; 83880; 83970; 84100-TC; 84155; 84165; 84443-TC; 84484-TC; 85025-TC; 93880-TC; 93971-TC; A4223; G0378; J1940; J2270; J3475; J3490; J7050

== ENCOUNTER 2024-05-08 17:45 | Inpatient (IN) | payer MEDICARE, OTHER ==
[~2024-05-08] VITALS: Ht 182.9 cm; Wt 118.4 kg
[~2024-05-08 17:45] MED LIST changes: +ASPI-992 PO; +HYDR-4076 PO
[2024-05-08 18:29] LABS: BASOPHILS # (AUTO) 0.1 K/uL (0.0-0.2); BASOPHILS % (AUTO) 0.9 % (0.0-2.0); EOSINOPHILS # (AUTO) 0.3 K/uL (0.0-0.7); EOSINOPHILS % (AUTO) 3.6 % (0.0-6.0); HEMATOCRIT 31 % (39-51); HEMOGLOBIN 9.8 g/dL (13.5-17.5); LYMPHOCYTES % (AUTO) 11.9 % (20.0-44.0); MEAN CORPUSCULAR HEMOGLOBIN 32 PG (26.0-33.0); MEAN CORPUSCULAR HGB CONC 32 g/dl (31.0-36.0); MEAN CORPUSCULAR VOLUME 100 fL (80-96); MONOCYTES # (AUTO) 1.1 K/uL (0.1-1.30); MONOCYTES % (AUTO) 12.5 % (2.0-12.0); NEUTROPHILS # (AUTO) 6.1 K/uL (1.8-8.9); NEUTROPHILS % (AUTO) 71.1 % (43.0-81.0); PLATELET COUNT (AUTO) 373 K/uL (150-450); RED BLOOD CELL COUNT(AUTO) 3.06 MIL/uL (4.5-6.0); RED CELL DISTRIBUTION WIDTH 15.8 % (11.5-15.0); WHITE BLOOD COUNT (AUTO) 8.6 K/uL (4.3-11.0)
[2024-05-08 18:34] LABS: CALCIUM, SERUM 9.9 mg/dL (8.5-10.1); CARBON DIOXIDE 20 mmol/L (21-32); CHLORIDE 100 mmol/L (98-107); CREATININE 2.8 mg/dL (0.6-1.3); GLUCOSE 102 mg/dL (74-106); SODIUM SERUM 132 mmol/L (136-145); UREA NITROGEN, BLOOD 46 mg/dL (7-18)
[2024-05-08 18:44] LABS: POTASSIUM 6.7 mmol/L (3.5-5.1)
[2024-05-08 18:47] LABS: ALANINE AMINOTRANSFERASE 94 U/L (12-78); ALBUMIN 2.5 g/dL (3.4-5.0); ALKALINE PHOSPHATASE 107 U/L (46-116); ASPARTATE AMINOTRANSFERASE 74 U/L (15-37); BILIRUBIN,DIRECT 0.1 mg/dL (0.0-0.2); BILIRUBIN,TOTAL 0.3 mg/dL (0.2-1.0); NT-PRO BNP 700 pg/mL (0-125); TOTAL PROTEIN, SERUM 8.1 g/dL (6.4-8.2)
[2024-05-08] MEDS: SODIUM POLYSTYRENE SULFONATE 15 G/60 ML BOTTLE PO ONE (19:00)
[2024-05-08] MEDS: DEXTROSE 50%-WATER 50 ML DISP.SYRIN IV ONE (19:10)
[2024-05-08] MEDS: INSULIN REGULAR, HUMAN 100 UNIT/ML 10 ML VIAL IV ONE (19:10)
[2024-05-08] MEDS: SODIUM BICARBONATE SYR 50 MEQ/50 ML DISP.SYRIN IV ONE (19:11)
[2024-05-08] MEDS ORDERED: oxyCODONE/APAP (5/325 MG) 1 UDTAB TABLET ONE (19:36)
[2024-05-08] MEDS: oxyCODONE/APAP (5/325 MG) 1 UDTAB TABLET PO ONE ×2 (19:40→22:36)
[2024-05-08 19:47] VITALS: O2SAT 98
[2024-05-08] MEDS: ALBUTEROL FS 2.5 MG/3 ML VIAL.NEB NEB ONE (19:47)
[2024-05-08 19:58] VITALS: O2SAT 99
[2024-05-08] MEDS ORDERED: ASPIRIN 325 MG TABLET ONE (20:48)
[2024-05-08] MEDS: ASPIRIN 325 MG TABLET PO SCH (20:52)
[2024-05-08 21:30] VITALS: BP 117/80; TEMP 98.1
[2024-05-08] MEDS ORDERED: MORPHINE SULFATE INJ 2 MG/ML DISP.SYRIN IV PRN (21:30)
[2024-05-08] MEDS: APIXABAN 5 MG TABLET PO SCH (21:30)
[2024-05-08] MEDS ORDERED: MAG HYDROX/AL HYDROX/SIMETH 30 ML UDC PO PRN (21:30)
[2024-05-08] MEDS ORDERED: MAGNESIUM HYDROXIDE 30 ML UDC PO PRN (21:30)
[2024-05-08] MEDS ORDERED: ONDANSETRON HCL/PF 4 MG/2 ML VIAL IVP PRN (21:30)
[2024-05-08] MEDS ORDERED: ACETAMINOPHEN 325 MG TABLET PO PRN (21:30)
[2024-05-08] MEDS: ATORVASTATIN 40 MG TABLET PO SCH (22:00)
[2024-05-08] MEDS ORDERED: ALBUTEROL FS 2.5 MG/3 ML VIAL.NEB NEB PRN (22:30)
[2024-05-08] MEDS ORDERED: oxyCODONE/APAP (5/325 MG) 1 UDTAB TABLET PO PRN (22:30)
[2024-05-09 01:13] VITALS: BP 119/70; TEMP 98.2; O2SAT 96
[2024-05-09] MEDS ORDERED: PREGABALIN 25 MG CAPSULE PO SCH (09:00)
[2024-05-09] MEDS ORDERED: SERTRALINE HCL 50 MG TABLET PO SCH (09:00)
[2024-05-09] MEDS ORDERED: METOPROLOL TARTRATE 25 MG TABLET PO SCH (09:00)
[2024-05-09] MEDS ORDERED: PANTOPRAZOLE 40 MG VIAL IV SCH (09:00)
[2024-05-09] MEDS ORDERED: FUROSEMIDE 20 MG/2 ML VIAL IV SCH (09:00)
== END 2024-05-09 02:50 | disposition left against medical advice (07) | DRG 641 ==
LOC: ER 17:54 → TELE 20:31
DX: E87.5 Hyperkalemia (principal); N17.9 Acute kidney failure, unspecified; I13.0 Hypertensive heart and chronic kidney disease with heart failure and stage 1 through stage 4 chronic kidney disease, or unspecified chronic kidney disease; I50.32 Chronic diastolic (congestive) heart failure; E87.1 Hypo-osmolality and hyponatremia; E11.22 Type 2 diabetes mellitus with diabetic chronic kidney disease; N18.9 Chronic kidney disease, unspecified; I25.10 Atherosclerotic heart disease of native coronary artery without angina pectoris; E66.9 Obesity, unspecified; E78.5 Hyperlipidemia, unspecified; I48.91 Unspecified atrial fibrillation; Z79.01 Long term (current) use of anticoagulants; D64.9 Anemia, unspecified; D53.9 Nutritional anemia, unspecified; E11.42 Type 2 diabetes mellitus with diabetic polyneuropathy; Z93.3 Colostomy status; Z68.35 Body mass index [BMI] 35.0-35.9, adult; Z90.49 Acquired absence of other specified parts of digestive tract
CPT/HCPCS: 36415; 71045-TC; 80048-TC; 80076-TC; 82962-TC; 83880; 84484-TC; 85025-TC; G0378; J1815; J3490

== ENCOUNTER 2024-05-10 18:50 | Inpatient (IN) | payer MEDICARE, OTHER ==
[~2024-05-10] VITALS: Ht 195.6 cm; Wt 119.3 kg
[~2024-05-10 18:50] MED LIST changes: -ASPI-992 PO; -HYDR-4076 PO
[2024-05-10 19:28] LABS: BASOPHILS # (AUTO) 0.1 K/uL (0.0-0.2); BASOPHILS % (AUTO) 0.9 % (0.0-2.0); EOSINOPHILS # (AUTO) 0.1 K/uL (0.0-0.7); EOSINOPHILS % (AUTO) 1.2 % (0.0-6.0); HEMATOCRIT 32 % (39-51); HEMOGLOBIN 10.4 g/dL (13.5-17.5); LYMPHOCYTES # (AUTO) 1.1 K/uL (0.8-4.8); LYMPHOCYTES % (AUTO) 12.2 % (20.0-44.0); MEAN CORPUSCULAR HEMOGLOBIN 32 PG (26.0-33.0); MEAN CORPUSCULAR HGB CONC 33 g/dl (31.0-36.0); MEAN CORPUSCULAR VOLUME 98 fL (80-96); MONOCYTES # (AUTO) 1.1 K/uL (0.1-1.30); MONOCYTES % (AUTO) 12.2 % (2.0-12.0); NEUTROPHILS # (AUTO) 6.8 K/uL (1.8-8.9); NEUTROPHILS % (AUTO) 73.5 % (43.0-81.0); PLATELET COUNT (AUTO) 388 K/uL (150-450); RED BLOOD CELL COUNT(AUTO) 3.23 MIL/uL (4.5-6.0); RED CELL DISTRIBUTION WIDTH 15.7 % (11.5-15.0); WHITE BLOOD COUNT (AUTO) 9.3 K/uL (4.3-11.0)
[2024-05-10 19:47] LABS: CALCIUM, SERUM 9.8 mg/dL (8.5-10.1); CARBON DIOXIDE 24 mmol/L (21-32); CHLORIDE 98 mmol/L (98-107); CREATININE 3.3 mg/dL (0.6-1.3); GLUCOSE 103 mg/dL (74-106); SODIUM SERUM 135 mmol/L (136-145); UREA NITROGEN, BLOOD 49 mg/dL (7-18)
[2024-05-10 20:00] LABS: ALANINE AMINOTRANSFERASE 83 U/L (12-78); ALBUMIN 2.7 g/dL (3.4-5.0); ALKALINE PHOSPHATASE 97 U/L (46-116); ASPARTATE AMINOTRANSFERASE 45 U/L (15-37); BILIRUBIN,DIRECT 0.1 mg/dL (0.0-0.2); BILIRUBIN,TOTAL 0.3 mg/dL (0.2-1.0); NT-PRO BNP 803 pg/mL (0-125); TOTAL PROTEIN, SERUM 8.6 g/dL (6.4-8.2)
[2024-05-10] MEDS ORDERED: Z GUARD REMEDY 4 OZ OINT TP PRN (21:00)
[2024-05-10] MEDS ORDERED: ONDANSETRON HCL/PF 4 MG/2 ML VIAL IVP PRN (21:00)
[2024-05-10] MEDS ORDERED: DEXTROSE 50%-WATER 50 ML DISP.SYRIN IV PRN (21:00)
[2024-05-10] MEDS ORDERED: MAGNESIUM HYDROXIDE 30 ML UDC PO PRN (21:00)
[2024-05-10] MEDS ORDERED: ACETAMINOPHEN 325 MG TABLET PO PRN (21:00)
[2024-05-10] MEDS ORDERED: MAG HYDROX/AL HYDROX/SIMETH 30 ML UDC PO PRN ×2 (21:00)
[2024-05-10] MEDS: BLOOD SUGAR DIAGNOSTIC 1 EACH STRIP IN SCH (21:26)
[2024-05-10] MEDS: SERTRALINE HCL 50 MG TABLET PO SCH (21:26)
[2024-05-10] MEDS: ATORVASTATIN 40 MG TABLET PO SCH (21:26)
[2024-05-10] MEDS: APIXABAN 5 MG TABLET PO SCH (21:27)
[2024-05-10] MEDS: INSULIN REGULAR, HUMAN 100 UNIT/ML 3 ML VIAL SQ PRN (21:52)
[2024-05-10] MEDS ORDERED: ALBUTEROL FS 2.5 MG/3 ML VIAL.NEB NEB PRN (22:30)
[2024-05-10] MEDS ORDERED: LIDOCAINE VISCOUS 2% UD 15 ML UDC ONE (23:27)
[2024-05-10] MEDS: LIDOCAINE VISCOUS 2% UD 15 ML UDC MM ONE (23:30)
[2024-05-11] VITALS (8 sets, daily range): BP systolic 88–134; BP diastolic 60–97; TEMP 97.9–98.4; O2SAT 96–99
[2024-05-11] MEDS: ZOLPIDEM TARTRATE 5 MG TABLET PO PRN (01:31)
[2024-05-11 06:41] LABS: BASOPHILS # (AUTO) 0.1 K/uL (0.0-0.2); BASOPHILS % (AUTO) 0.9 % (0.0-2.0); EOSINOPHILS # (AUTO) 0.2 K/uL (0.0-0.7); EOSINOPHILS % (AUTO) 2.7 % (0.0-6.0); HEMATOCRIT 29 % (39-51); HEMOGLOBIN 9.5 g/dL (13.5-17.5); LYMPHOCYTES # (AUTO) 1.1 K/uL (0.8-4.8); LYMPHOCYTES % (AUTO) 14.7 % (20.0-44.0); MEAN CORPUSCULAR HEMOGLOBIN 32 PG (26.0-33.0); MEAN CORPUSCULAR HGB CONC 33 g/dl (31.0-36.0); MEAN CORPUSCULAR VOLUME 97 fL (80-96); MONOCYTES % (AUTO) 13.1 % (2.0-12.0); NEUTROPHILS # (AUTO) 5.3 K/uL (1.8-8.9); NEUTROPHILS % (AUTO) 68.6 % (43.0-81.0); PLATELET COUNT (AUTO) 349 K/uL (150-450); RED BLOOD CELL COUNT(AUTO) 2.93 MIL/uL (4.5-6.0); RED CELL DISTRIBUTION WIDTH 15.5 % (11.5-15.0); WHITE BLOOD COUNT (AUTO) 7.7 K/uL (4.3-11.0)
[2024-05-11 07:07] LABS: CALCIUM, SERUM 8.8 mg/dL (8.5-10.1); CREATININE 2.9 mg/dL (0.6-1.3); MAGNESIUM 1.5 mg/dL (1.8-2.4); PHOSPHORUS 4.8 mg/dL (2.5-4.9); POTASSIUM 4.2 mmol/L (3.5-5.1)
[2024-05-11] MEDS: PREGABALIN 25 MG CAPSULE PO SCH (09:25)
[2024-05-11] MEDS: METOPROLOL TARTRATE 25 MG TABLET PO SCH (09:25)
[2024-05-11] MEDS: FUROSEMIDE 20 MG/2 ML VIAL IV SCH (09:25)
[2024-05-11] MEDS: Magnesium 1GM/D5W 100ML PREMIX 100 ML IV SCH (11:13)
[2024-05-12] VITALS: BP 115/79; TEMP 97.9; O2SAT 96
[2024-05-12 04:00] VITALS: BP 128/91; TEMP 98.1; O2SAT 97
[2024-05-12 07:12] LABS: BASOPHILS # (AUTO) 0.1 K/uL (0.0-0.2); BASOPHILS % (AUTO) 0.9 % (0.0-2.0); EOSINOPHILS # (AUTO) 0.2 K/uL (0.0-0.7); EOSINOPHILS % (AUTO) 2.9 % (0.0-6.0); HEMATOCRIT 32 % (39-51); HEMOGLOBIN 10.5 g/dL (13.5-17.5); LYMPHOCYTES # (AUTO) 1.1 K/uL (0.8-4.8); LYMPHOCYTES % (AUTO) 14.8 % (20.0-44.0); MEAN CORPUSCULAR HEMOGLOBIN 33 PG (26.0-33.0); MEAN CORPUSCULAR HGB CONC 33 g/dl (31.0-36.0); MEAN CORPUSCULAR VOLUME 100 fL (80-96); MONOCYTES # (AUTO) 0.9 K/uL (0.1-1.30); MONOCYTES % (AUTO) 12.1 % (2.0-12.0); NEUTROPHILS # (AUTO) 4.9 K/uL (1.8-8.9); NEUTROPHILS % (AUTO) 69.3 % (43.0-81.0); PLATELET COUNT (AUTO) 302 K/uL (150-450); RED BLOOD CELL COUNT(AUTO) 3.18 MIL/uL (4.5-6.0); RED CELL DISTRIBUTION WIDTH 15.1 % (11.5-15.0); WHITE BLOOD COUNT (AUTO) 7.1 K/uL (4.3-11.0)
[2024-05-12 07:30] VITALS: BP 158/91; TEMP 97.7; O2SAT 94
[2024-05-12 07:38] LABS: CALCIUM, SERUM 8.7 mg/dL (8.5-10.1); CREATININE 2.1 mg/dL (0.6-1.3); MAGNESIUM 2.1 mg/dL (1.8-2.4); PHOSPHORUS 4.3 mg/dL (2.5-4.9); POTASSIUM 4.3 mmol/L (3.5-5.1)
[2024-05-12 16:00] VITALS: BP 115/57; TEMP 98.1; O2SAT 94
[2024-05-12 20:00] VITALS: BP 115/77; TEMP 98.4; O2SAT 96
[2024-05-13] VITALS: BP 102/64; TEMP 98.5; O2SAT 95
[2024-05-13 04:00] VITALS: BP 111/70; TEMP 97.7; O2SAT 97
[2024-05-13 06:28] LABS: BASOPHILS # (AUTO) 0.1 K/uL (0.0-0.2); BASOPHILS % (AUTO) 0.7 % (0.0-2.0); EOSINOPHILS # (AUTO) 0.3 K/uL (0.0-0.7); EOSINOPHILS % (AUTO) 3.3 % (0.0-6.0); HEMATOCRIT 30 % (39-51); LYMPHOCYTES # (AUTO) 0.8 K/uL (0.8-4.8); LYMPHOCYTES % (AUTO) 10.1 % (20.0-44.0); MEAN CORPUSCULAR HEMOGLOBIN 33 PG (26.0-33.0); MEAN CORPUSCULAR HGB CONC 33 g/dl (31.0-36.0); MEAN CORPUSCULAR VOLUME 100 fL (80-96); MONOCYTES # (AUTO) 0.8 K/uL (0.1-1.30); MONOCYTES % (AUTO) 9.8 % (2.0-12.0); NEUTROPHILS # (AUTO) 5.9 K/uL (1.8-8.9); NEUTROPHILS % (AUTO) 76.1 % (43.0-81.0); PLATELET COUNT (AUTO) 304 K/uL (150-450); RED BLOOD CELL COUNT(AUTO) 3.05 MIL/uL (4.5-6.0); RED CELL DISTRIBUTION WIDTH 14.8 % (11.5-15.0); WHITE BLOOD COUNT (AUTO) 7.8 K/uL (4.3-11.0)
[2024-05-13 06:33] LABS: CALCIUM, SERUM 9.3 mg/dL (8.5-10.1); CREATININE 1.9 mg/dL (0.6-1.3); MAGNESIUM 1.8 mg/dL (1.8-2.4); PHOSPHORUS 3.8 mg/dL (2.5-4.9); POTASSIUM 3.5 mmol/L (3.5-5.1)
[2024-05-13 07:30] VITALS: BP 95/55; TEMP 97.5; O2SAT 99
[2024-05-13 11:00] VITALS: BP 105/54; TEMP 97.7; O2SAT 95
[2024-05-13 16:00] VITALS: BP 84/59; TEMP 98.4; O2SAT 98
[2024-05-13 20:00] VITALS: BP 120/72; TEMP 97.7; O2SAT 96
[2024-05-14] VITALS: BP 102/49; TEMP 98.4; O2SAT 100
[2024-05-14 04:00] VITALS: BP 108/62; TEMP 98.6; O2SAT 99
[2024-05-14 07:29] LABS: BASOPHILS % (AUTO) 0.4 % (0.0-2.0); EOSINOPHILS # (AUTO) 0.2 K/uL (0.0-0.7); EOSINOPHILS % (AUTO) 2.7 % (0.0-6.0); HEMATOCRIT 28 % (39-51); HEMOGLOBIN 9.8 g/dL (13.5-17.5); LYMPHOCYTES # (AUTO) 0.6 K/uL (0.8-4.8); LYMPHOCYTES % (AUTO) 7.7 % (20.0-44.0); MEAN CORPUSCULAR HEMOGLOBIN 33 PG (26.0-33.0); MEAN CORPUSCULAR HGB CONC 35 g/dl (31.0-36.0); MEAN CORPUSCULAR VOLUME 96 fL (80-96); MONOCYTES # (AUTO) 0.8 K/uL (0.1-1.30); MONOCYTES % (AUTO) 9.5 % (2.0-12.0); NEUTROPHILS # (AUTO) 6.3 K/uL (1.8-8.9); NEUTROPHILS % (AUTO) 79.7 % (43.0-81.0); PLATELET COUNT (AUTO) 295 K/uL (150-450); RED BLOOD CELL COUNT(AUTO) 2.95 MIL/uL (4.5-6.0); RED CELL DISTRIBUTION WIDTH 14.7 % (11.5-15.0); WHITE BLOOD COUNT (AUTO) 7.9 K/uL (4.3-11.0)
[2024-05-14 08:00] VITALS: BP 116/63; TEMP 98.6; O2SAT 95
[2024-05-14 09:10] LABS: INR 1.08 (0.91-1.10); PARTIAL THROMBOPLASTIN TIME 32.8 SEC (24.3-34.3); PROTHROMBIN TIME 11.4 SECS (9.2-11.1)
[2024-05-14 10:33] LABS: CALCIUM, SERUM 9.3 mg/dL (8.5-10.1); CREATININE 2.1 mg/dL (0.6-1.3); POTASSIUM 3.2 mmol/L (3.5-5.1)
[2024-05-14] MEDS ORDERED: IV NS 0.9% 500 ML IV ONE (13:16)
[2024-05-14] MEDS ORDERED: IODIXANOL 150 ML IV ONE (13:16)
[2024-05-14] MEDS ORDERED: IV SET PRIMARY PUMP SET 1 EA INFUS.SET MC ONE (13:16)
[2024-05-14] MEDS ORDERED: LIDOCAINE HCL/MPF 1% 30 ML VIAL IJ ONE (13:17)
[2024-05-14] MEDS ORDERED: NITROGLYCERIN IN 5 % DEXTROSE 250 ML IV ONE (13:34)
[2024-05-14] MEDS ORDERED: MIDAZOLAM HCL 2 MG/2ML VIAL ONE (13:49)
[2024-05-14] MEDS ORDERED: FENTANYL PF 100MCG/2ML AMPUL ONE (13:49)
[2024-05-14 16:00] VITALS: BP 120/73; TEMP 98.6; O2SAT 94
[2024-05-14 20:00] VITALS: BP 117/79; TEMP 98; TEMP 98.6; O2SAT 94
[2024-05-15 06:30] LABS: BASOPHILS % (AUTO) 0.4 % (0.0-2.0); EOSINOPHILS # (AUTO) 0.1 K/uL (0.0-0.7); EOSINOPHILS % (AUTO) 1.5 % (0.0-6.0); HEMATOCRIT 30 % (39-51); HEMOGLOBIN 9.9 g/dL (13.5-17.5); LYMPHOCYTES # (AUTO) 0.7 K/uL (0.8-4.8); MEAN CORPUSCULAR HEMOGLOBIN 33 PG (26.0-33.0); MEAN CORPUSCULAR HGB CONC 33 g/dl (31.0-36.0); MEAN CORPUSCULAR VOLUME 97 fL (80-96); MONOCYTES # (AUTO) 0.9 K/uL (0.1-1.30); MONOCYTES % (AUTO) 11.2 % (2.0-12.0); NEUTROPHILS # (AUTO) 6.6 K/uL (1.8-8.9); NEUTROPHILS % (AUTO) 78.9 % (43.0-81.0); PLATELET COUNT (AUTO) 303 K/uL (150-450); RED BLOOD CELL COUNT(AUTO) 3.05 MIL/uL (4.5-6.0); RED CELL DISTRIBUTION WIDTH 14.7 % (11.5-15.0); WHITE BLOOD COUNT (AUTO) 8.3 K/uL (4.3-11.0)
[2024-05-15 06:56] LABS: CALCIUM, SERUM 9.4 mg/dL (8.5-10.1); CREATININE 1.9 mg/dL (0.6-1.3); POTASSIUM 3.1 mmol/L (3.5-5.1)
[2024-05-15 08:00] VITALS: BP 82/61; TEMP 98.3; O2SAT 99
[2024-05-15 09:00] VITALS: BP 82/61
[2024-05-15] MEDS: POTASSIUM CHLORIDE 20 MEQ TAB.PRT.SR PO ONE (10:51)
== END 2024-05-15 17:00 | disposition home health service (06) | DRG 286 ==
LOC: ER 19:16 → TELE 20:41 → MED 05-14 10:22
PROVIDERS: ATTEND Nurse Practitioner Acute Care
PROC: 4A023N7 Measurement of Cardiac Sampling and Pressure, Left Heart, Percutaneous Approach (ICD-10-PCS; principal; 2024-05-14)
PROC: B211YZZ Fluoroscopy of Multiple Coronary Arteries using Other Contrast (ICD-10-PCS; 2024-05-14)
PROC: B34HZZZ Ultrasonography of Right Upper Extremity Arteries (ICD-10-PCS; 2024-05-14)
DX: I13.0 Hypertensive heart and chronic kidney disease with heart failure and stage 1 through stage 4 chronic kidney disease, or unspecified chronic kidney disease (principal); I50.33 Acute on chronic diastolic (congestive) heart failure; N17.0 Acute kidney failure with tubular necrosis; E87.1 Hypo-osmolality and hyponatremia; G89.4 Chronic pain syndrome; I48.0 Paroxysmal atrial fibrillation; N18.9 Chronic kidney disease, unspecified; Z93.3 Colostomy status; D53.9 Nutritional anemia, unspecified; D63.1 Anemia in chronic kidney disease; E11.22 Type 2 diabetes mellitus with diabetic chronic kidney disease; E78.5 Hyperlipidemia, unspecified; J44.9 Chronic obstructive pulmonary disease, unspecified; Z79.01 Long term (current) use of anticoagulants; E11.42 Type 2 diabetes mellitus with diabetic polyneuropathy; E66.9 Obesity, unspecified; Z68.31 Body mass index [BMI] 31.0-31.9, adult; Z90.49 Acquired absence of other specified parts of digestive tract; Z79.891 Long term (current) use of opiate analgesic; R07.89 Other chest pain
CPT/HCPCS: 36415; 71045-TC; 80048-TC; 80076-TC; 82962-TC; 83735-TC; 83880; 84100-TC; 84484-TC; 85025-TC; 85610-TC; 85730-TC; 94799-TC; A4223; G0378; J1644; J1815; J1940; J2250; J3010; J3475; J3490; J7040; Q9967

== ENCOUNTER 2024-06-02 14:07 | Inpatient (IN) | payer MEDICARE, OTHER ==
[~2024-06-02] VITALS: Ht 182.9 cm; Wt 117.5 kg
[2024-06-02 14:51] LABS: BASOPHILS % (AUTO) 0.5 % (0.0-2.0); EOSINOPHILS # (AUTO) 0.1 K/uL (0.0-0.7); EOSINOPHILS % (AUTO) 1.3 % (0.0-6.0); HEMATOCRIT 34 % (39-51); HEMOGLOBIN 11.2 g/dL (13.5-17.5); LYMPHOCYTES # (AUTO) 0.9 K/uL (0.8-4.8); LYMPHOCYTES % (AUTO) 10.3 % (20.0-44.0); MEAN CORPUSCULAR HEMOGLOBIN 32 PG (26.0-33.0); MEAN CORPUSCULAR HGB CONC 33 g/dl (31.0-36.0); MEAN CORPUSCULAR VOLUME 95 fL (80-96); MONOCYTES # (AUTO) 0.7 K/uL (0.1-1.30); MONOCYTES % (AUTO) 8.7 % (2.0-12.0); NEUTROPHILS # (AUTO) 6.7 K/uL (1.8-8.9); NEUTROPHILS % (AUTO) 79.2 % (43.0-81.0); PLATELET COUNT (AUTO) 400 K/uL (150-450); RED BLOOD CELL COUNT(AUTO) 3.54 MIL/uL (4.5-6.0); RED CELL DISTRIBUTION WIDTH 14.5 % (11.5-15.0); WHITE BLOOD COUNT (AUTO) 8.4 K/uL (4.3-11.0)
[2024-06-02 15:02] LABS: CALCIUM, SERUM 9.6 mg/dL (8.5-10.1); CARBON DIOXIDE 22 mmol/L (21-32); CHLORIDE 97 mmol/L (98-107); CREATININE 4.8 mg/dL (0.6-1.3); GLUCOSE 128 mg/dL (74-106); POTASSIUM 4.5 mmol/L (3.5-5.1); SODIUM SERUM 135 mmol/L (136-145); UREA NITROGEN, BLOOD 58 mg/dL (7-18)
[2024-06-02 15:15] LABS: ALANINE AMINOTRANSFERASE 53 U/L (12-78); ALBUMIN 3.5 g/dL (3.4-5.0); ALKALINE PHOSPHATASE 136 U/L (46-116); ASPARTATE AMINOTRANSFERASE 44 U/L (15-37); BILIRUBIN,DIRECT 0.2 mg/dL (0.0-0.2); BILIRUBIN,TOTAL 0.6 mg/dL (0.2-1.0); NT-PRO BNP 436 pg/mL (0-125); TOTAL PROTEIN, SERUM 9.2 g/dL (6.4-8.2)
[2024-06-02] MEDS ORDERED: MAG HYDROX/AL HYDROX/SIMETH 30 ML UDC PO PRN (16:30)
[2024-06-02] MEDS ORDERED: MAGNESIUM HYDROXIDE 30 ML UDC PO PRN (16:30)
[2024-06-02] MEDS ORDERED: ACETAMINOPHEN 325 MG TABLET PO PRN (16:30)
[2024-06-02] MEDS ORDERED: ONDANSETRON HCL/PF 4 MG/2 ML VIAL IVP PRN (16:30)
[2024-06-02] MEDS ORDERED: FUROSEMIDE 20 MG TABLET PO ONE (16:30)
[2024-06-02] MEDS ORDERED: Z GUARD REMEDY 4 OZ OINT TP PRN (16:30)
[2024-06-02] MEDS ORDERED: ASPIRIN 81 MG TAB.CHEW ONE (16:53)
[2024-06-02] MEDS: ASPIRIN 81 MG TAB.CHEW PO ONE (16:55)
[2024-06-02] MEDS ORDERED: ALBUTEROL FS 2.5 MG/3 ML VIAL.NEB NEB PRN (17:00)
[2024-06-02] MEDS ORDERED: DEXTROSE 50%-WATER 50 ML DISP.SYRIN IV PRN (17:00)
[2024-06-02] MEDS ORDERED: HYDROCODONE/APAP 5/325MG TABLET ONE (18:11)
[2024-06-02] MEDS: HYDROCODONE/APAP 5/325MG TABLET PO PRN (18:14)
[2024-06-02] MEDS ORDERED: APIXABAN 5 MG TABLET ONE (18:44)
[2024-06-02] MEDS ORDERED: PREGABALIN 25 MG CAPSULE ONE (18:44)
[2024-06-02] MEDS: METOPROLOL TARTRATE 25 MG TABLET PO SCH (18:48)
[2024-06-02] MEDS: PREGABALIN 25 MG CAPSULE PO SCH (18:48)
[2024-06-02] MEDS: APIXABAN 5 MG TABLET PO SCH (18:49)
[2024-06-02] MEDS: BLOOD SUGAR DIAGNOSTIC 1 EACH STRIP IN SCH (18:56)
[2024-06-02 20:00] VITALS: BP 106/76; TEMP 98.1; O2SAT 96
[2024-06-02] MEDS: SERTRALINE HCL 50 MG TABLET PO SCH (21:15)
[2024-06-02] MEDS: ATORVASTATIN 40 MG TABLET PO SCH (21:15)
[2024-06-02] MEDS: INSULIN REGULAR, HUMAN 100 UNIT/ML 3 ML VIAL SQ PRN (21:24)
[2024-06-02] MEDS: MORPHINE SULFATE INJ 2 MG/ML DISP.SYRIN IV PRN (22:02)
[2024-06-03] VITALS: BP 110/73; TEMP 98.3; O2SAT 96
[2024-06-03 04:00] VITALS: BP 124/68; TEMP 98; O2SAT 97
[2024-06-03 06:39] LABS: BASOPHILS # (AUTO) 0.1 K/uL (0.0-0.2); BASOPHILS % (AUTO) 0.6 % (0.0-2.0); EOSINOPHILS # (AUTO) 0.2 K/uL (0.0-0.7); EOSINOPHILS % (AUTO) 2.1 % (0.0-6.0); HEMATOCRIT 33 % (39-51); HEMOGLOBIN 11.1 g/dL (13.5-17.5); LYMPHOCYTES # (AUTO) 1.3 K/uL (0.8-4.8); LYMPHOCYTES % (AUTO) 14.1 % (20.0-44.0); MEAN CORPUSCULAR HEMOGLOBIN 32 PG (26.0-33.0); MEAN CORPUSCULAR HGB CONC 33 g/dl (31.0-36.0); MEAN CORPUSCULAR VOLUME 95 fL (80-96); MONOCYTES % (AUTO) 11.6 % (2.0-12.0); NEUTROPHILS # (AUTO) 6.4 K/uL (1.8-8.9); NEUTROPHILS % (AUTO) 71.6 % (43.0-81.0); PLATELET COUNT (AUTO) 255 K/uL (150-450); RED CELL DISTRIBUTION WIDTH 14.8 % (11.5-15.0)
[2024-06-03 07:07] LABS: CREATININE 5.1 mg/dL (0.6-1.3); MAGNESIUM 1.7 mg/dL (1.8-2.4); PHOSPHORUS 6.8 mg/dL (2.5-4.9); POTASSIUM 4.2 mmol/L (3.5-5.1)
[2024-06-03 08:20] VITALS: BP 117/81; TEMP 97.5; O2SAT 90
[2024-06-03] MEDS: PANTOPRAZOLE 40 MG TABLET.DR PO SCH (08:28)
[2024-06-03 12:14] VITALS: BP 115/72; TEMP 97.6; O2SAT 95
[2024-06-03 16:54] VITALS: BP 96/75; TEMP 97.8; O2SAT 92
[2024-06-03 20:00] VITALS: BP 126/65; TEMP 97.9; O2SAT 99
[2024-06-04] VITALS: BP 145/95; TEMP 98.7; O2SAT 95
[2024-06-04 04:00] VITALS: BP 119/72; TEMP 97.9; O2SAT 100
[2024-06-04 06:41] LABS: BASOPHILS # (AUTO) 0.1 K/uL (0.0-0.2); BASOPHILS % (AUTO) 0.9 % (0.0-2.0); EOSINOPHILS # (AUTO) 0.3 K/uL (0.0-0.7); EOSINOPHILS % (AUTO) 3.9 % (0.0-6.0); HEMATOCRIT 30 % (39-51); MEAN CORPUSCULAR HEMOGLOBIN 32 PG (26.0-33.0); MEAN CORPUSCULAR HGB CONC 34 g/dl (31.0-36.0); MEAN CORPUSCULAR VOLUME 94 fL (80-96); MONOCYTES # (AUTO) 0.8 K/uL (0.1-1.30); MONOCYTES % (AUTO) 11.3 % (2.0-12.0); NEUTROPHILS # (AUTO) 5.2 K/uL (1.8-8.9); NEUTROPHILS % (AUTO) 69.9 % (43.0-81.0); PLATELET COUNT (AUTO) 307 K/uL (150-450); RED BLOOD CELL COUNT(AUTO) 3.15 MIL/uL (4.5-6.0); WHITE BLOOD COUNT (AUTO) 7.5 K/uL (4.3-11.0)
[2024-06-04 06:50] LABS: CALCIUM, SERUM 8.4 mg/dL (8.5-10.1); CREATININE 4.4 mg/dL (0.6-1.3); POTASSIUM 3.9 mmol/L (3.5-5.1)
[2024-06-04 07:13] LABS: MAGNESIUM 1.4 mg/dL (1.8-2.4); PHOSPHORUS 6.3 mg/dL (2.5-4.9)
[2024-06-04 08:00] VITALS: BP_SYST 133; BP_SYST 99; BP_DIAS 64; BP_DIAS 75; TEMP 97.9; TEMP 98.6; O2SAT 93; O2SAT 99
[2024-06-04] MEDS: MAGNESIUM OXIDE 400 MG TABLET PO SCH (10:48)
[2024-06-04] MEDS: IV NS 0.9% 1,000 ML IV PRN (11:46)
[2024-06-04 16:00] VITALS: BP 99/64; TEMP 97.5; O2SAT 93
[2024-06-04 19:00] VITALS: BP 107/69; TEMP 98.1; O2SAT 97
[2024-06-04 20:00] VITALS: BP 107/69; TEMP 98.1; O2SAT 97
[2024-06-05 04:00] VITALS: BP 110/71; TEMP 97.5; O2SAT 94
[2024-06-05 08:15] VITALS: BP 129/64; TEMP 97.9; O2SAT 99
[2024-06-05 12:00] VITALS: BP 125/61; TEMP 97.5; O2SAT 94
[2024-06-05 14:55] LABS: CALCIUM, SERUM 7.6 mg/dL (8.5-10.1); CREATININE 2.8 mg/dL (0.6-1.3); POTASSIUM 4.2 mmol/L (3.5-5.1)
[2024-06-06] MEDS: SODIUM CHLORIDE 1000 MG TABLET PO SCH (08:31)
[2024-06-06 09:23] LABS: BASOPHILS % (AUTO) 0.5 % (0.0-2.0); EOSINOPHILS # (AUTO) 0.2 K/uL (0.0-0.7); EOSINOPHILS % (AUTO) 3.7 % (0.0-6.0); HEMATOCRIT 31 % (39-51); HEMOGLOBIN 10.2 g/dL (13.5-17.5); LYMPHOCYTES # (AUTO) 0.3 K/uL (0.8-4.8); LYMPHOCYTES % (AUTO) 5.6 % (20.0-44.0); MEAN CORPUSCULAR HEMOGLOBIN 31 PG (26.0-33.0); MEAN CORPUSCULAR HGB CONC 33 g/dl (31.0-36.0); MEAN CORPUSCULAR VOLUME 95 fL (80-96); MONOCYTES # (AUTO) 0.5 K/uL (0.1-1.30); MONOCYTES % (AUTO) 7.6 % (2.0-12.0); NEUTROPHILS % (AUTO) 82.6 % (43.0-81.0); PLATELET COUNT (AUTO) 273 K/uL (150-450); RED BLOOD CELL COUNT(AUTO) 3.24 MIL/uL (4.5-6.0); RED CELL DISTRIBUTION WIDTH 14.1 % (11.5-15.0)
[2024-06-06 09:37] LABS: ALBUMIN 2.6 g/dL (3.4-5.0); BILIRUBIN,TOTAL 0.5 mg/dL (0.2-1.0); CALCIUM, SERUM 7.8 mg/dL (8.5-10.1); CREATININE 2.4 mg/dL (0.6-1.3); MAGNESIUM 1.3 mg/dL (1.8-2.4); PHOSPHORUS 4.3 mg/dL (2.5-4.9); POTASSIUM 4.2 mmol/L (3.5-5.1); TOTAL PROTEIN, SERUM 7.4 g/dL (6.4-8.2)
[2024-06-07] MEDS ORDERED: SODI100037 PO (09:46)
[2024-06-07 17:00] VITALS: BP 90/60
== END 2024-06-07 18:43 | disposition home health service (06) | DRG 311 ==
LOC: ER 14:09 → TELE1 18:10 → MEDSG1 06-04 08:31
PROVIDERS: ADMIT Nurse Practitioner Acute Care; ATTEND Student in an Organized Health Care Education/Training Program
DX: I20.0 Unstable angina (principal); I50.43 Acute on chronic combined systolic (congestive) and diastolic (congestive) heart failure; N17.9 Acute kidney failure, unspecified; I13.0 Hypertensive heart and chronic kidney disease with heart failure and stage 1 through stage 4 chronic kidney disease, or unspecified chronic kidney disease; E87.1 Hypo-osmolality and hyponatremia; I31.39 Other pericardial effusion (noninflammatory); I48.20 Chronic atrial fibrillation, unspecified; N18.9 Chronic kidney disease, unspecified; E11.22 Type 2 diabetes mellitus with diabetic chronic kidney disease; D63.8 Anemia in other chronic diseases classified elsewhere; E11.42 Type 2 diabetes mellitus with diabetic polyneuropathy; E66.9 Obesity, unspecified; E78.5 Hyperlipidemia, unspecified; E83.42 Hypomagnesemia; F32.A Depression, unspecified; G89.4 Chronic pain syndrome; J44.9 Chronic obstructive pulmonary disease, unspecified; Z79.01 Long term (current) use of anticoagulants; Z79.899 Other long term (current) drug therapy; Z90.49 Acquired absence of other specified parts of digestive tract; Z93.3 Colostomy status; Z68.35 Body mass index [BMI] 35.0-35.9, adult; E86.1 Hypovolemia; N25.0 Renal osteodystrophy
CPT/HCPCS: 36415; 71045-TC; 80048-TC; 80053-TC; 80061-TC; 80076-TC; 82962-TC; 83690-TC; 83735-TC; 83880; 84100-TC; 84484-TC; 85025-TC; 97110-TC; 97530-TC; A4223; G0378; J1815; J2270; J7030

== ENCOUNTER 2024-06-13 15:36 | Inpatient (IN) | payer MEDICARE, OTHER ==
[~2024-06-13] VITALS: Ht 185.4 cm; Wt 112.5 kg
[~2024-06-13 15:36] MED LIST changes: -FURO-144 PO; +SODI100037 PO
[2024-06-13 17:05] LABS: BASOPHILS % (AUTO) 0.5 % (0.0-2.0); EOSINOPHILS # (AUTO) 0.1 K/uL (0.0-0.7); EOSINOPHILS % (AUTO) 1.5 % (0.0-6.0); HEMATOCRIT 29 % (39-51); HEMOGLOBIN 9.7 g/dL (13.5-17.5); LYMPHOCYTES % (AUTO) 11.7 % (20.0-44.0); MEAN CORPUSCULAR HEMOGLOBIN 31 PG (26.0-33.0); MEAN CORPUSCULAR HGB CONC 33 g/dl (31.0-36.0); MEAN CORPUSCULAR VOLUME 93 fL (80-96); MONOCYTES # (AUTO) 0.7 K/uL (0.1-1.30); MONOCYTES % (AUTO) 8.8 % (2.0-12.0); NEUTROPHILS # (AUTO) 6.6 K/uL (1.8-8.9); NEUTROPHILS % (AUTO) 77.5 % (43.0-81.0); PLATELET COUNT (AUTO) 275 K/uL (150-450); RED BLOOD CELL COUNT(AUTO) 3.15 MIL/uL (4.5-6.0); RED CELL DISTRIBUTION WIDTH 14.4 % (11.5-15.0); WHITE BLOOD COUNT (AUTO) 8.5 K/uL (4.3-11.0)
[2024-06-13 17:15] LABS: CARBON DIOXIDE 20 mmol/L (21-32); CHLORIDE 103 mmol/L (98-107); CREATININE 2.7 mg/dL (0.6-1.3); GLUCOSE 101 mg/dL (74-106); SODIUM SERUM 134 mmol/L (136-145); UREA NITROGEN, BLOOD 66 mg/dL (7-18)
[2024-06-13 17:27] LABS: ALANINE AMINOTRANSFERASE 109 U/L (12-78); ALBUMIN 3.1 g/dL (3.4-5.0); ALKALINE PHOSPHATASE 73 U/L (46-116); ASPARTATE AMINOTRANSFERASE 72 U/L (15-37); BILIRUBIN,DIRECT 0.1 mg/dL (0.0-0.2); BILIRUBIN,TOTAL 0.3 mg/dL (0.2-1.0); NT-PRO BNP 1794 pg/mL (0-125); TOTAL PROTEIN, SERUM 7.8 g/dL (6.4-8.2)
[2024-06-13] MEDS ORDERED: MORPHINE SULFATE INJ 4 MG/ML DISP.SYRIN ONE (19:30)
[2024-06-13] MEDS: MORPHINE SULFATE INJ 2 MG/ML DISP.SYRIN IV ONE (19:35)
[2024-06-13] MEDS ORDERED: FUROSEMIDE 20 MG/2 ML VIAL ONE (21:17)
[2024-06-13] MEDS ORDERED: ASPIRIN 81 MG TAB.CHEW ONE (21:17)
[2024-06-13] MEDS: ASPIRIN EC 81 MG TABLET.DR PO ONE (21:20)
[2024-06-13] MEDS: FUROSEMIDE 20 MG/2 ML VIAL IV ONE (21:20)
[2024-06-13] MEDS ORDERED: ACETAMINOPHEN 325 MG TABLET PO PRN (22:00)
[2024-06-13] MEDS ORDERED: MAG HYDROX/AL HYDROX/SIMETH 30 ML UDC PO PRN (22:00)
[2024-06-13] MEDS ORDERED: ONDANSETRON HCL/PF 4 MG/2 ML VIAL IVP PRN (22:00)
[2024-06-13] MEDS ORDERED: MAGNESIUM HYDROXIDE 30 ML UDC PO PRN (22:00)
[2024-06-13] MEDS ORDERED: Z GUARD REMEDY 4 OZ OINT TP PRN (22:00)
[2024-06-13 22:20] VITALS: BP 116/71; TEMP 98.2; O2SAT 95
[2024-06-13] MEDS: NITROGLYCERIN 0.4 MG/TAB BOTTLE SL ONE (22:29)
[2024-06-14] VITALS: BP 115/65; TEMP 98.5; O2SAT 96
[2024-06-14] MEDS: HYDROMORPHONE 1 MG/1 ML DISP.SYRIN IV PRN (01:03)
[2024-06-14 04:00] VITALS: BP 112/60; TEMP 98.2; O2SAT 97
[2024-06-14 07:53] LABS: BASOPHILS # (AUTO) 0.1 K/uL (0.0-0.2); BASOPHILS % (AUTO) 0.8 % (0.0-2.0); EOSINOPHILS # (AUTO) 0.2 K/uL (0.0-0.7); EOSINOPHILS % (AUTO) 2.9 % (0.0-6.0); HEMATOCRIT 30 % (39-51); HEMOGLOBIN 9.7 g/dL (13.5-17.5); LYMPHOCYTES # (AUTO) 1.1 K/uL (0.8-4.8); LYMPHOCYTES % (AUTO) 15.5 % (20.0-44.0); MEAN CORPUSCULAR HEMOGLOBIN 32 PG (26.0-33.0); MEAN CORPUSCULAR HGB CONC 33 g/dl (31.0-36.0); MEAN CORPUSCULAR VOLUME 96 fL (80-96); MONOCYTES # (AUTO) 0.7 K/uL (0.1-1.30); MONOCYTES % (AUTO) 9.5 % (2.0-12.0); NEUTROPHILS # (AUTO) 5.3 K/uL (1.8-8.9); NEUTROPHILS % (AUTO) 71.3 % (43.0-81.0); PLATELET COUNT (AUTO) 142 K/uL (150-450); RED BLOOD CELL COUNT(AUTO) 3.08 MIL/uL (4.5-6.0); RED CELL DISTRIBUTION WIDTH 14.3 % (11.5-15.0); WHITE BLOOD COUNT (AUTO) 7.4 K/uL (4.3-11.0)
[2024-06-14 08:00] VITALS: BP 138/68; TEMP 98.4; O2SAT 97
[2024-06-14 08:38] LABS: ALBUMIN 2.5 g/dL (3.4-5.0); BILIRUBIN,DIRECT 0.1 mg/dL (0.0-0.2); BILIRUBIN,TOTAL 0.4 mg/dL (0.2-1.0); CALCIUM, SERUM 8.5 mg/dL (8.5-10.1); CREATININE 2.3 mg/dL (0.6-1.3); MAGNESIUM 1.2 mg/dL (1.8-2.4); PHOSPHORUS 4.4 mg/dL (2.5-4.9); TOTAL PROTEIN, SERUM 7.7 g/dL (6.4-8.2)
[2024-06-14] MEDS: PREGABALIN 25 MG CAPSULE PO SCH (08:54)
[2024-06-14] MEDS: APIXABAN 5 MG TABLET PO SCH (08:55)
[2024-06-14] MEDS: METOPROLOL TARTRATE 25 MG TABLET PO SCH (08:55)
[2024-06-14] MEDS: FUROSEMIDE 20 MG/2 ML VIAL IV SCH (08:55)
[2024-06-14] MEDS: SERTRALINE HCL 50 MG TABLET PO SCH (08:55)
[2024-06-14 09:12] LABS: THYROID STIMULATING HORMONE 1.08 uIU/mL (0.358-3.74)
[2024-06-14 12:00] VITALS: BP 132/75; TEMP 98.8; O2SAT 97
[2024-06-14] MEDS: MAGNESIUM OXIDE 400 MG TABLET PO ONE (13:52)
[2024-06-14 16:00] VITALS: BP 115/70; TEMP 98.7; O2SAT 97
[2024-06-14 20:00] VITALS: BP 106/61; TEMP 97.6; O2SAT 98
[2024-06-14] MEDS: ATORVASTATIN 10 MG TABLET PO SCH (21:55)
[2024-06-15] VITALS: BP 129/62; TEMP 97.3; O2SAT 98
[2024-06-15 04:00] VITALS: BP 121/57; TEMP 97.3; O2SAT 97
[2024-06-15 08:00] VITALS: BP 104/56; TEMP 98.4; O2SAT 97
[2024-06-15 12:00] VITALS: BP 119/56; TEMP 97.5; O2SAT 98
[2024-06-15 14:47] LABS: CALCIUM, SERUM 8.9 mg/dL (8.5-10.1); CREATININE 2.1 mg/dL (0.6-1.3); POTASSIUM 3.3 mmol/L (3.5-5.1)
[2024-06-15 16:00] VITALS: BP 105/89; TEMP 97.5; O2SAT 98
[2024-06-15 20:00] VITALS: BP 108/60; TEMP 98.1; O2SAT 97
[2024-06-15] MEDS: ZOLPIDEM TARTRATE 5 MG TABLET PO PRN (23:48)
[2024-06-16] VITALS: BP 128/69; TEMP 98.1; O2SAT 97
[2024-06-16 04:00] VITALS: BP 125/68; TEMP 97.7; O2SAT 95
[2024-06-16 08:00] VITALS: BP 135/78; TEMP 98.1; O2SAT 96
[2024-06-16 10:51] LABS: CALCIUM, SERUM 8.9 mg/dL (8.5-10.1); POTASSIUM 3.3 mmol/L (3.5-5.1)
[2024-06-16 12:00] VITALS: BP 129/70; TEMP 97.6; O2SAT 98
== END 2024-06-16 15:16 | disposition home health service (06) | DRG 291 ==
LOC: ER 16:10 → TELE1 21:36 → MEDSG1 06-16 10:29
PROVIDERS: ADMIT Nurse Practitioner Family; ATTEND Nurse Practitioner Acute Care
DX: I13.0 Hypertensive heart and chronic kidney disease with heart failure and stage 1 through stage 4 chronic kidney disease, or unspecified chronic kidney disease (principal); I50.43 Acute on chronic combined systolic (congestive) and diastolic (congestive) heart failure; N17.9 Acute kidney failure, unspecified; E87.1 Hypo-osmolality and hyponatremia; E87.20 Acidosis, unspecified; N18.4 Chronic kidney disease, stage 4 (severe); E46 Unspecified protein-calorie malnutrition; I48.20 Chronic atrial fibrillation, unspecified; D63.8 Anemia in other chronic diseases classified elsewhere; E11.22 Type 2 diabetes mellitus with diabetic chronic kidney disease; E66.9 Obesity, unspecified; E78.5 Hyperlipidemia, unspecified; E83.42 Hypomagnesemia; E88.09 Other disorders of plasma-protein metabolism, not elsewhere classified; F32.A Depression, unspecified; G89.4 Chronic pain syndrome; Z93.3 Colostomy status; R74.01 Elevation of levels of liver transaminase levels; Z79.01 Long term (current) use of anticoagulants; Z79.899 Other long term (current) drug therapy; Z90.49 Acquired absence of other specified parts of digestive tract; Z68.32 Body mass index [BMI] 32.0-32.9, adult
CPT/HCPCS: 36415; 71045-TC; 80048-TC; 80076-TC; 83690-TC; 83735-TC; 83880; 84100-TC; 84443-TC; 84484-TC; 85025-TC; 97110-TC; 97116-TC; 97530-TC; G0378; J1170; J1940; J2270

== ENCOUNTER 2024-06-17 16:27 | Inpatient (IN) | payer MEDICARE, OTHER ==
[~2024-06-17] VITALS: Ht 188 cm; Wt 115.7 kg
[~2024-06-17 16:27] MED LIST changes: -SODI100037 PO
[2024-06-17 17:44] LABS: BASOPHILS % (AUTO) 0.5 % (0.0-2.0); EOSINOPHILS % (AUTO) 0.1 % (0.0-6.0); HEMATOCRIT 37 % (39-51); LYMPHOCYTES # (AUTO) 0.6 K/uL (0.8-4.8); LYMPHOCYTES % (AUTO) 5.9 % (20.0-44.0); MEAN CORPUSCULAR HEMOGLOBIN 31 PG (26.0-33.0); MEAN CORPUSCULAR HGB CONC 33 g/dl (31.0-36.0); MEAN CORPUSCULAR VOLUME 94 fL (80-96); MONOCYTES # (AUTO) 0.6 K/uL (0.1-1.30); MONOCYTES % (AUTO) 5.2 % (2.0-12.0); NEUTROPHILS # (AUTO) 9.4 K/uL (1.8-8.9); NEUTROPHILS % (AUTO) 88.3 % (43.0-81.0); PLATELET COUNT (AUTO) 405 K/uL (150-450); RED BLOOD CELL COUNT(AUTO) 3.93 MIL/uL (4.5-6.0); RED CELL DISTRIBUTION WIDTH 14.3 % (11.5-15.0); WHITE BLOOD COUNT (AUTO) 10.7 K/uL (4.3-11.0)
[2024-06-17 17:52] LABS: CALCIUM, SERUM 10.4 mg/dL (8.5-10.1); CARBON DIOXIDE 17 mmol/L (21-32); CHLORIDE 98 mmol/L (98-107); GLUCOSE 127 mg/dL (74-106); POTASSIUM 3.6 mmol/L (3.5-5.1); SODIUM SERUM 133 mmol/L (136-145); UREA NITROGEN, BLOOD 74 mg/dL (7-18)
[2024-06-17 17:57] LABS: INR 1.12 (0.91-1.10); PARTIAL THROMBOPLASTIN TIME 29.7 SEC (24.3-34.3); PROTHROMBIN TIME 11.4 SECS (9.2-11.1)
[2024-06-17 18:05] LABS: ALANINE AMINOTRANSFERASE 65 U/L (12-78); ALKALINE PHOSPHATASE 112 U/L (46-116); ASPARTATE AMINOTRANSFERASE 31 U/L (15-37); BILIRUBIN,DIRECT 0.1 mg/dL (0.0-0.2); BILIRUBIN,TOTAL 0.6 mg/dL (0.2-1.0); NT-PRO BNP 899 pg/mL (0-125); TOTAL PROTEIN, SERUM 9.7 g/dL (6.4-8.2)
[2024-06-17] MEDS ORDERED: ONDANSETRON HCL/PF 4 MG/2 ML VIAL IVP PRN (20:00)
[2024-06-17] MEDS ORDERED: DEXTROSE 50%-WATER 50 ML DISP.SYRIN IV PRN (20:00)
[2024-06-17] MEDS ORDERED: MAGNESIUM HYDROXIDE 30 ML UDC PO PRN (20:00)
[2024-06-17] MEDS ORDERED: MAG HYDROX/AL HYDROX/SIMETH 30 ML UDC PO PRN (20:00)
[2024-06-17] MEDS: LIDOCAINE VISCOUS 2% UD 15 ML UDC MM ONE (20:28)
[2024-06-17] MEDS: MAG HYDROX/AL HYDROX/SIMETH 30 ML UDC PO ONE (20:29)
[2024-06-17] MEDS ORDERED: ALBUTEROL FS 2.5 MG/3 ML VIAL.NEB NEB PRN (20:30)
[2024-06-17] MEDS: SERTRALINE HCL 50 MG TABLET PO SCH (21:29)
[2024-06-17] MEDS: INSULIN REGULAR, HUMAN 100 UNIT/ML 3 ML VIAL SQ PRN (22:27)
[2024-06-17] MEDS: BLOOD SUGAR DIAGNOSTIC 1 EACH STRIP IN SCH (22:28)
[2024-06-18] VITALS: BP 107/65; TEMP 97.9; O2SAT 96
[2024-06-18 04:00] VITALS: BP 119/60; TEMP 97.4; O2SAT 96
[2024-06-18 07:23] LABS: BASOPHILS # (AUTO) 0.1 K/uL (0.0-0.2); BASOPHILS % (AUTO) 0.5 % (0.0-2.0); EOSINOPHILS # (AUTO) 0.1 K/uL (0.0-0.7); EOSINOPHILS % (AUTO) 0.8 % (0.0-6.0); HEMATOCRIT 35 % (39-51); HEMOGLOBIN 11.5 g/dL (13.5-17.5); LYMPHOCYTES # (AUTO) 0.9 K/uL (0.8-4.8); LYMPHOCYTES % (AUTO) 8.1 % (20.0-44.0); MEAN CORPUSCULAR HEMOGLOBIN 31 PG (26.0-33.0); MEAN CORPUSCULAR HGB CONC 33 g/dl (31.0-36.0); MEAN CORPUSCULAR VOLUME 93 fL (80-96); MONOCYTES # (AUTO) 0.9 K/uL (0.1-1.30); MONOCYTES % (AUTO) 8.1 % (2.0-12.0); NEUTROPHILS # (AUTO) 9.6 K/uL (1.8-8.9); NEUTROPHILS % (AUTO) 82.5 % (43.0-81.0); PLATELET COUNT (AUTO) 365 K/uL (150-450); RED BLOOD CELL COUNT(AUTO) 3.77 MIL/uL (4.5-6.0); RED CELL DISTRIBUTION WIDTH 14.4 % (11.5-15.0); WHITE BLOOD COUNT (AUTO) 11.6 K/uL (4.3-11.0)
[2024-06-18 07:34] LABS: CALCIUM, SERUM 9.7 mg/dL (8.5-10.1); CREATININE 5.2 mg/dL (0.6-1.3); MAGNESIUM 1.4 mg/dL (1.8-2.4); PHOSPHORUS 5.8 mg/dL (2.5-4.9); POTASSIUM 3.2 mmol/L (3.5-5.1)
[2024-06-18 08:00] VITALS: BP 82/58; TEMP 98.2; O2SAT 97
[2024-06-18] MEDS: PANTOPRAZOLE 40 MG VIAL IV SCH (09:00)
[2024-06-18] MEDS: PREGABALIN 25 MG CAPSULE PO SCH (09:00)
[2024-06-18] MEDS: APIXABAN 5 MG TABLET PO SCH (09:01)
[2024-06-18] MEDS: MAGNESIUM OXIDE 400 MG TABLET PO ONE (11:51)
[2024-06-18] MEDS: IV NS 0.9% 1,000 ML IV ONE (11:51)
[2024-06-18] MEDS: POTASSIUM CHLORIDE 20 MEQ TAB.PRT.SR PO ONE (11:51)
[2024-06-18 12:00] VITALS: BP 99/79; TEMP 98.2; O2SAT 95
[2024-06-18 16:00] VITALS: BP 90/45; TEMP 97.9; O2SAT 97
[2024-06-18 17:20] LABS: CALCIUM, SERUM 9.1 mg/dL (8.5-10.1); CREATININE 5.3 mg/dL (0.6-1.3); POTASSIUM 3.4 mmol/L (3.5-5.1)
[2024-06-18] MEDS: HYDROMORPHONE 1 MG/1 ML DISP.SYRIN IV PRN (17:23)
[2024-06-18 20:00] VITALS: BP 100/60; TEMP 97.9; O2SAT 97
[2024-06-18] MEDS: HYDROMORPHONE 1 MG/1 ML DISP.SYRIN IM ONE (22:04)
[2024-06-19] VITALS: BP 91/56; TEMP 97.5; O2SAT 95
[2024-06-19 04:00] VITALS: BP 108/70; TEMP 97.6; O2SAT 96
[2024-06-19 07:03] LABS: BASOPHILS % (AUTO) 0.4 % (0.0-2.0); EOSINOPHILS # (AUTO) 0.2 K/uL (0.0-0.7); EOSINOPHILS % (AUTO) 1.9 % (0.0-6.0); HEMATOCRIT 33 % (39-51); HEMOGLOBIN 10.8 g/dL (13.5-17.5); LYMPHOCYTES # (AUTO) 1.1 K/uL (0.8-4.8); LYMPHOCYTES % (AUTO) 11.2 % (20.0-44.0); MEAN CORPUSCULAR HEMOGLOBIN 31 PG (26.0-33.0); MEAN CORPUSCULAR HGB CONC 33 g/dl (31.0-36.0); MEAN CORPUSCULAR VOLUME 94 fL (80-96); MONOCYTES % (AUTO) 9.7 % (2.0-12.0); NEUTROPHILS # (AUTO) 7.6 K/uL (1.8-8.9); NEUTROPHILS % (AUTO) 76.8 % (43.0-81.0); PLATELET COUNT (AUTO) 320 K/uL (150-450); RED BLOOD CELL COUNT(AUTO) 3.49 MIL/uL (4.5-6.0); RED CELL DISTRIBUTION WIDTH 14.2 % (11.5-15.0); WHITE BLOOD COUNT (AUTO) 9.9 K/uL (4.3-11.0)
[2024-06-19 07:12] LABS: ALBUMIN 2.9 g/dL (3.4-5.0); BILIRUBIN,TOTAL 0.4 mg/dL (0.2-1.0); CALCIUM, SERUM 8.9 mg/dL (8.5-10.1); CREATININE 4.8 mg/dL (0.6-1.3); MAGNESIUM 1.4 mg/dL (1.8-2.4); PHOSPHORUS 6.2 mg/dL (2.5-4.9); POTASSIUM 3.3 mmol/L (3.5-5.1); TOTAL PROTEIN, SERUM 8.2 g/dL (6.4-8.2)
[2024-06-19 08:00] VITALS: BP 121/68; TEMP 98.1; O2SAT 96
[2024-06-19] MEDS: PANTOPRAZOLE 40 MG TABLET.DR PO SCH (09:00)
[2024-06-19 12:00] VITALS: BP 114/67; TEMP 97.9; O2SAT 98
[2024-06-19] MEDS: POTASSIUM CHLORIDE 20 MEQ TAB.PRT.SR PO ONE (12:50)
[2024-06-19] MEDS: MAGNESIUM OXIDE 400 MG TABLET PO SCH (12:50)
[2024-06-19 16:00] VITALS: BP 130/70; TEMP 98; O2SAT 97
[2024-06-19] MEDS: ACETAMINOPHEN 325 MG TABLET PO PRN (17:52)
[2024-06-19] MEDS: IV NS 0.9% 1,000 ML IV PRN (18:55)
[2024-06-19 20:00] VITALS: BP 104/74; TEMP 98; O2SAT 99
[2024-06-20] VITALS (7 sets, daily range): BP systolic 104–118; BP diastolic 64–74; TEMP 97.9–98.5; O2SAT 97–99
[2024-06-20 06:07] LABS: PTH, INTACT 117 pg/mL (15-65)
[2024-06-20 06:59] LABS: BASOPHILS % (AUTO) 0.3 % (0.0-2.0); EOSINOPHILS # (AUTO) 0.3 K/uL (0.0-0.7); EOSINOPHILS % (AUTO) 2.9 % (0.0-6.0); HEMATOCRIT 32 % (39-51); HEMOGLOBIN 10.5 g/dL (13.5-17.5); LYMPHOCYTES # (AUTO) 0.4 K/uL (0.8-4.8); LYMPHOCYTES % (AUTO) 4.5 % (20.0-44.0); MEAN CORPUSCULAR HEMOGLOBIN 31 PG (26.0-33.0); MEAN CORPUSCULAR HGB CONC 33 g/dl (31.0-36.0); MEAN CORPUSCULAR VOLUME 94 fL (80-96); MONOCYTES # (AUTO) 0.6 K/uL (0.1-1.30); MONOCYTES % (AUTO) 7.2 % (2.0-12.0); NEUTROPHILS # (AUTO) 7.7 K/uL (1.8-8.9); NEUTROPHILS % (AUTO) 85.1 % (43.0-81.0); PLATELET COUNT (AUTO) 268 K/uL (150-450); RED BLOOD CELL COUNT(AUTO) 3.43 MIL/uL (4.5-6.0); RED CELL DISTRIBUTION WIDTH 14.3 % (11.5-15.0)
[2024-06-20 07:42] LABS: CREATININE 3.2 mg/dL (0.6-1.3); MAGNESIUM 1.5 mg/dL (1.8-2.4); PHOSPHORUS 4.9 mg/dL (2.5-4.9); POTASSIUM 3.2 mmol/L (3.5-5.1)
[2024-06-20] MEDS: POTASSIUM CHLORIDE 20 MEQ TAB.PRT.SR PO ONE (10:46)
[2024-06-21] VITALS: BP 127/82; TEMP 97.8; O2SAT 97
[2024-06-21 04:00] VITALS: BP 128/64; TEMP 98.1; O2SAT 97
[2024-06-21 08:00] VITALS: BP 126/79; TEMP 97.3; O2SAT 95
[2024-06-21 15:05] LABS: CALCIUM, SERUM 8.8 mg/dL (8.5-10.1); CREATININE 2.1 mg/dL (0.6-1.3); POTASSIUM 3.7 mmol/L (3.5-5.1)
[2024-06-21 15:16] LABS: BASOPHILS % (AUTO) 0.3 % (0.0-2.0); EOSINOPHILS # (AUTO) 0.2 K/uL (0.0-0.7); EOSINOPHILS % (AUTO) 3.3 % (0.0-6.0); HEMATOCRIT 32 % (39-51); HEMOGLOBIN 9.7 g/dL (13.5-17.5); LYMPHOCYTES # (AUTO) 0.4 K/uL (0.8-4.8); LYMPHOCYTES % (AUTO) 6.8 % (20.0-44.0); MEAN CORPUSCULAR HEMOGLOBIN 31 PG (26.0-33.0); MEAN CORPUSCULAR HGB CONC 30 g/dl (31.0-36.0); MEAN CORPUSCULAR VOLUME 100 fL (80-96); MONOCYTES # (AUTO) 0.7 K/uL (0.1-1.30); MONOCYTES % (AUTO) 10.6 % (2.0-12.0); NEUTROPHILS # (AUTO) 4.9 K/uL (1.8-8.9); PLATELET COUNT (AUTO) 245 K/uL (150-450); RED BLOOD CELL COUNT(AUTO) 3.17 MIL/uL (4.5-6.0); WHITE BLOOD COUNT (AUTO) 6.2 K/uL (4.3-11.0)
[2024-06-21 16:00] VITALS: BP 129/92; TEMP 97.8; O2SAT 95
[2024-06-22] VITALS: BP 129/92; TEMP 97.8; O2SAT 95
[2024-06-22 08:00] VITALS: BP 133/71; TEMP 97.9; O2SAT 97
[2024-06-22] MEDS ORDERED: HYDR-4303 PO (09:34)
[2024-06-22 16:32] VITALS: BP 128/74; TEMP 98; O2SAT 97
[2024-06-23 09:09] LABS: *SPE A/G RATIO 0.7 (0.7-1.7); *SPE ALBUMIN 3.1 g/dL (2.9-4.4); *SPE ALPHA-1-GLOBULIN 0.3 g/dL (0.0-0.4); *SPE BETA GLOBULIN 1.4 g/dL (0.7-1.3); *SPE GLOBULIN, TOTAL 4.4 g/dL (2.2-3.9); *SPE M-SPIKE Not Observed g/dL (Not Observed); *SPE PROTEIN TOTAL 7.5 g/dL (6.0-8.5); *SPEGAMMA GLOBULIN 1.8 g/dL (0.4-1.8)
== END 2024-06-22 18:40 | disposition home health service (06) | DRG 683 ==
LOC: ER 16:43 → TELE1 20:18 → MEDSG1 06-21 18:12
PROVIDERS: ATTEND Internal Medicine
PROC: 02HV33Z Insertion of Infusion Device into Superior Vena Cava, Percutaneous Approach (ICD-10-PCS; principal; 2024-06-19)
PROC: B548ZZA Ultrasonography of Superior Vena Cava, Guidance (ICD-10-PCS; 2024-06-19)
DX: N17.0 Acute kidney failure with tubular necrosis (principal); E87.1 Hypo-osmolality and hyponatremia; I13.0 Hypertensive heart and chronic kidney disease with heart failure and stage 1 through stage 4 chronic kidney disease, or unspecified chronic kidney disease; I50.42 Chronic combined systolic (congestive) and diastolic (congestive) heart failure; I48.20 Chronic atrial fibrillation, unspecified; E87.20 Acidosis, unspecified; M94.0 Chondrocostal junction syndrome [Tietze]; N18.4 Chronic kidney disease, stage 4 (severe); R55 Syncope and collapse; E83.42 Hypomagnesemia; I25.10 Atherosclerotic heart disease of native coronary artery without angina pectoris; Z79.01 Long term (current) use of anticoagulants; Z90.49 Acquired absence of other specified parts of digestive tract; Z93.3 Colostomy status; M89.8X9 Other specified disorders of bone, unspecified site; F32.A Depression, unspecified; E87.6 Hypokalemia; E78.5 Hyperlipidemia, unspecified; E66.9 Obesity, unspecified; E86.1 Hypovolemia; G89.4 Chronic pain syndrome; E11.22 Type 2 diabetes mellitus with diabetic chronic kidney disease; E11.40 Type 2 diabetes mellitus with diabetic neuropathy, unspecified; D63.8 Anemia in other chronic diseases classified elsewhere; Z68.33 Body mass index [BMI] 33.0-33.9, adult; I95.9 Hypotension, unspecified; E86.9 Volume depletion, unspecified
CPT/HCPCS: 36415; 36569; 71045-TC; 76770-TC; 80048-TC; 80053-TC; 80076-TC; 82550-TC; 82962-TC; 83735-TC; 83880; 83970; 84100-TC; 84155; 84165; 84484-TC; 85025-TC; 85730-TC; 93307-TC; A4223; G0378; J1170; J1815; J2470; J7030

== ENCOUNTER 2024-06-27 15:15 | Emergency (ER) | payer MEDICARE, MEDICAID ==
[~2024-06-27] VITALS: Ht 188 cm; Wt 113.4 kg
[~2024-06-27 15:15] MED LIST changes: +HYDR-4303 PO
[2024-06-27 15:17] VITALS: TEMP 98.1
[2024-06-27 16:15] LABS: BASOPHILS % (AUTO) 0.4 % (0.0-2.0); EOSINOPHILS % (AUTO) 0.6 % (0.0-6.0); HEMATOCRIT 38 % (39-51); HEMOGLOBIN 12.2 g/dL (13.5-17.5); LYMPHOCYTES # (AUTO) 0.7 K/uL (0.8-4.8); MEAN CORPUSCULAR HEMOGLOBIN 30 PG (26.0-33.0); MEAN CORPUSCULAR HGB CONC 32 g/dl (31.0-36.0); MEAN CORPUSCULAR VOLUME 94 fL (80-96); MONOCYTES # (AUTO) 0.8 K/uL (0.1-1.30); MONOCYTES % (AUTO) 10.4 % (2.0-12.0); NEUTROPHILS # (AUTO) 5.9 K/uL (1.8-8.9); NEUTROPHILS % (AUTO) 79.6 % (43.0-81.0); PLATELET COUNT (AUTO) 330 K/uL (150-450); RED BLOOD CELL COUNT(AUTO) 4.08 MIL/uL (4.5-6.0); RED CELL DISTRIBUTION WIDTH 14.9 % (11.5-15.0); WHITE BLOOD COUNT (AUTO) 7.4 K/uL (4.3-11.0)
[2024-06-27 16:26] LABS: CALCIUM, SERUM 10.1 mg/dL (8.5-10.1); CARBON DIOXIDE 18 mmol/L (21-32); CHLORIDE 98 mmol/L (98-107); CREATININE 3.9 mg/dL (0.6-1.3); GLUCOSE 118 mg/dL (74-106); POTASSIUM 3.6 mmol/L (3.5-5.1); SODIUM SERUM 134 mmol/L (136-145); UREA NITROGEN, BLOOD 50 mg/dL (7-18)
[2024-06-27 16:42] LABS: ALANINE AMINOTRANSFERASE 50 U/L (12-78); ALBUMIN 3.4 g/dL (3.4-5.0); ALKALINE PHOSPHATASE 117 U/L (46-116); ASPARTATE AMINOTRANSFERASE 29 U/L (15-37); BILIRUBIN,DIRECT 0.1 mg/dL (0.0-0.2); BILIRUBIN,TOTAL 0.5 mg/dL (0.2-1.0); NT-PRO BNP 1669 pg/mL (0-125); TOTAL PROTEIN, SERUM 9.4 g/dL (6.4-8.2)
[2024-06-27 19:08] VITALS: BP 125/78; O2SAT 98
== END 2024-06-27 16:20 | disposition home or self-care (01) ==
LOC: ER 15:18
DX: I12.9 Hypertensive chronic kidney disease with stage 1 through stage 4 chronic kidney disease, or unspecified chronic kidney disease (principal); N18.9 Chronic kidney disease, unspecified; E78.5 Hyperlipidemia, unspecified; E11.22 Type 2 diabetes mellitus with diabetic chronic kidney disease; I48.91 Unspecified atrial fibrillation; Z98.890 Other specified postprocedural states; Z79.891 Long term (current) use of opiate analgesic; Z79.52 Long term (current) use of systemic steroids; Z79.899 Other long term (current) drug therapy; Z60.2 Problems related to living alone
CPT/HCPCS: 36415; 71045-TC; 80048-TC; 80076-TC; 83880; 84484-TC; 85025-TC

== ENCOUNTER 2024-06-28 10:21 | Inpatient (IN) | payer MEDICARE, MEDICAID ==
[~2024-06-28] VITALS: Ht 175.3 cm; Wt 113.4 kg
[2024-06-28 11:42] LABS: BASOPHILS # (AUTO) 0.1 K/uL (0.0-0.2); BASOPHILS % (AUTO) 0.6 % (0.0-2.0); EOSINOPHILS % (AUTO) 0.4 % (0.0-6.0); HEMATOCRIT 36 % (39-51); HEMOGLOBIN 11.5 g/dL (13.5-17.5); LYMPHOCYTES # (AUTO) 0.7 K/uL (0.8-4.8); LYMPHOCYTES % (AUTO) 8.3 % (20.0-44.0); MEAN CORPUSCULAR HEMOGLOBIN 30 PG (26.0-33.0); MEAN CORPUSCULAR HGB CONC 32 g/dl (31.0-36.0); MEAN CORPUSCULAR VOLUME 94 fL (80-96); MONOCYTES # (AUTO) 0.9 K/uL (0.1-1.30); MONOCYTES % (AUTO) 10.9 % (2.0-12.0); NEUTROPHILS # (AUTO) 6.9 K/uL (1.8-8.9); NEUTROPHILS % (AUTO) 79.8 % (43.0-81.0); PLATELET COUNT (AUTO) 347 K/uL (150-450); RED CELL DISTRIBUTION WIDTH 14.7 % (11.5-15.0); WHITE BLOOD COUNT (AUTO) 8.7 K/uL (4.3-11.0)
[2024-06-28 11:56] LABS: CALCIUM, SERUM 9.6 mg/dL (8.5-10.1); CARBON DIOXIDE 23 mmol/L (21-32); CHLORIDE 96 mmol/L (98-107); CREATININE 5.2 mg/dL (0.6-1.3); GLUCOSE 128 mg/dL (74-106); POTASSIUM 3.6 mmol/L (3.5-5.1); SODIUM SERUM 134 mmol/L (136-145); UREA NITROGEN, BLOOD 58 mg/dL (7-18)
[2024-06-28] MEDS ORDERED: Z GUARD REMEDY 4 OZ OINT TP PRN (12:30)
[2024-06-28] MEDS ORDERED: MAGNESIUM HYDROXIDE 30 ML UDC PO PRN (12:30)
[2024-06-28] MEDS ORDERED: ACETAMINOPHEN 325 MG TABLET PO PRN (12:30)
[2024-06-28] MEDS ORDERED: MAG HYDROX/AL HYDROX/SIMETH 30 ML UDC PO PRN (12:30)
[2024-06-28] MEDS ORDERED: ONDANSETRON HCL/PF 4 MG/2 ML VIAL IVP PRN (12:30)
[2024-06-28] MEDS ORDERED: NITROGLYCERIN 0.4 MG/TAB BOTTLE SL PRN (12:30)
[2024-06-28] MEDS: IV 1/2NS 1000 ML 1,000 ML IV PRN (12:46)
[2024-06-28] MEDS ORDERED: ALBUTEROL FS 2.5 MG/0.5 ML VIAL.NEB IH PRN (13:00)
[2024-06-28] MEDS: METOPROLOL TARTRATE 25 MG TABLET PO SCH (16:29)
[2024-06-28] MEDS: PREGABALIN 25 MG CAPSULE PO SCH (16:30)
[2024-06-28] MEDS: HYDROCODONE/APAP 5/325MG TABLET PO PRN (19:43)
[2024-06-28] MEDS: MORPHINE SULFATE INJ 2 MG/ML DISP.SYRIN IV PRN (19:48)
[2024-06-28 20:00] VITALS: BP 97/57; TEMP 97.7; O2SAT 100
[2024-06-28] MEDS: SERTRALINE HCL 50 MG TABLET PO SCH (21:46)
[2024-06-28] MEDS: ATORVASTATIN 40 MG TABLET PO SCH (21:47)
[2024-06-28] MEDS: HEPARIN SODIUM, PORCINE 5000 UNITS/1 ML VIAL SQ SCH (21:47)
[2024-06-28] MEDS ORDERED: ZOLPIDEM TARTRATE 5 MG TABLET PO PRN (22:00)
[2024-06-29] VITALS: BP_SYST 112; BP_SYST 97; BP_DIAS 57; BP_DIAS 73; TEMP 97.7; O2SAT 100; O2SAT 99
[2024-06-29] MEDS ORDERED: MORPHINE SULFATE INJ 2 MG/ML DISP.SYRIN IV PRN
[2024-06-29] MEDS: HYDROMORPHONE 1 MG/1 ML DISP.SYRIN IV PRN (01:03)
[2024-06-29 04:00] VITALS: BP 95/55; TEMP 97.8; O2SAT 99
[2024-06-29 08:00] VITALS: BP 108/68; TEMP 97.9; O2SAT 96
[2024-06-29] MEDS: PANTOPRAZOLE 40 MG TABLET.DR PO SCH (08:19)
[2024-06-29] MEDS: BLOOD SUGAR DIAGNOSTIC 1 EACH STRIP IN SCH (08:37)
[2024-06-29] MEDS: IV NS 0.9% 1,000 ML IV PRN (10:29)
[2024-06-29 13:48] LABS: APPEARANCE,URINE CLEAR (CLEAR); BILIRUBIN,URINE NEGATIVE (NEGATIVE); BLOOD, URINE NEGATIVE Ery/uL (NEGATIVE); COLOR,URINE YELLOW (YELLOW); KETONES,URINE NEGATIVE (NEGATIVE); LEUKOCYTE ESTERASE ,URINE 1+ (NEGATIVE); NITRITE, URINE NEGATIVE (NEGATIVE); PROTEIN,URINE NEGATIVE (NEGATIVE); UGLUCOSE NEGATIVE (NEGATIVE); UROBILINOGEN,URINE 0.2 EU/dL (0.2)
[2024-06-29 13:54] LABS: CREATININE, URINE 263.7 MG/DL (30.0-125.0); URINE SODIUM, RANDOM < 5 mmol/l (40-220); URINE TOTAL PROTEIN 31.1 mg/dL (0-11.9)
[2024-06-29 13:54] LABS: RED BLOOD CELL COUNT(AUTO) 4.03 MIL/uL (4.5-6.0)
[2024-06-29 13:59] LABS: BASOPHILS # (AUTO) 0.1 K/uL (0.0-0.2); BASOPHILS % (AUTO) 0.9 % (0.0-2.0); EOSINOPHILS # (AUTO) 0.2 K/uL (0.0-0.7); EOSINOPHILS % (AUTO) 3.2 % (0.0-6.0); HEMATOCRIT 37 % (39-51); HEMOGLOBIN 12.2 g/dL (13.5-17.5); LYMPHOCYTES # (AUTO) 1.1 K/uL (0.8-4.8); LYMPHOCYTES % (AUTO) 15.5 % (20.0-44.0); MEAN CORPUSCULAR HEMOGLOBIN 30 PG (26.0-33.0); MEAN CORPUSCULAR HGB CONC 33 g/dl (31.0-36.0); MEAN CORPUSCULAR VOLUME 92 fL (80-96); MONOCYTES # (AUTO) 0.8 K/uL (0.1-1.30); MONOCYTES % (AUTO) 11.3 % (2.0-12.0); NEUTROPHILS # (AUTO) 4.7 K/uL (1.8-8.9); NEUTROPHILS % (AUTO) 69.1 % (43.0-81.0); PLATELET COUNT (AUTO) 276 K/uL (150-450); RED CELL DISTRIBUTION WIDTH 14.5 % (11.5-15.0); WHITE BLOOD COUNT (AUTO) 6.8 K/uL (4.3-11.0)
[2024-06-29 14:00] LABS: ADD URINE CULTURE YES; BACTERIA,URINE Few /HPF (None Seen); RBC,URINE NONE SEEN /HPF (0-2)
[2024-06-29 14:09] LABS: CALCIUM, SERUM 8.8 mg/dL (8.5-10.1); MAGNESIUM 1.4 mg/dL (1.8-2.4); POTASSIUM 3.2 mmol/L (3.5-5.1)
[2024-06-29 14:27] LABS: EOSINOPHIL,URINE None Seen
[2024-06-29] MEDS ORDERED: POTASSIUM CHLORIDE 20 MEQ TAB.PRT.SR PO SCH (15:30)
[2024-06-29 16:00] VITALS: BP 91/52; TEMP 97.3; O2SAT 100
[2024-06-29 20:00] VITALS: BP 92/66; TEMP 97.9; O2SAT 100
[2024-06-29 20:09] VITALS: BP 92/66; TEMP 97.9; O2SAT 100
[2024-06-30] VITALS (8 sets, daily range): BP systolic 95–116; BP diastolic 54–76; TEMP 97.3–98.6; O2SAT 94–99
[2024-06-30 06:18] LABS: BASOPHILS # (AUTO) 0.1 K/uL (0.0-0.2); BASOPHILS % (AUTO) 0.8 % (0.0-2.0); EOSINOPHILS # (AUTO) 0.3 K/uL (0.0-0.7); EOSINOPHILS % (AUTO) 3.7 % (0.0-6.0); HEMATOCRIT 32 % (39-51); HEMOGLOBIN 10.8 g/dL (13.5-17.5); LYMPHOCYTES # (AUTO) 0.9 K/uL (0.8-4.8); LYMPHOCYTES % (AUTO) 11.8 % (20.0-44.0); MEAN CORPUSCULAR HEMOGLOBIN 31 PG (26.0-33.0); MEAN CORPUSCULAR HGB CONC 33 g/dl (31.0-36.0); MEAN CORPUSCULAR VOLUME 92 fL (80-96); MONOCYTES # (AUTO) 0.7 K/uL (0.1-1.30); NEUTROPHILS # (AUTO) 5.5 K/uL (1.8-8.9); NEUTROPHILS % (AUTO) 74.7 % (43.0-81.0); PLATELET COUNT (AUTO) 263 K/uL (150-450); RED BLOOD CELL COUNT(AUTO) 3.53 MIL/uL (4.5-6.0); RED CELL DISTRIBUTION WIDTH 14.4 % (11.5-15.0); WHITE BLOOD COUNT (AUTO) 7.4 K/uL (4.3-11.0)
[2024-06-30 06:50] LABS: ALBUMIN 3.1 g/dL (3.4-5.0); BILIRUBIN,TOTAL 0.3 mg/dL (0.2-1.0); CALCIUM, SERUM 8.3 mg/dL (8.5-10.1); MAGNESIUM 1.3 mg/dL (1.8-2.4); PHOSPHORUS 5.9 mg/dL (2.5-4.9); POTASSIUM 3.1 mmol/L (3.5-5.1); TOTAL PROTEIN, SERUM 7.9 g/dL (6.4-8.2)
[2024-06-30] MEDS: POTASSIUM CHLORIDE 20 MEQ TAB.PRT.SR PO ONE (08:57)
[2024-06-30] MEDS: Magnesium 1GM/D5W 100ML PREMIX 100 ML IV SCH (09:36)
== END 2024-06-30 17:20 | disposition home health service (06) | DRG 683 ==
LOC: ER 10:32 → TELE 12:17
DX: N17.0 Acute kidney failure with tubular necrosis (principal); E87.1 Hypo-osmolality and hyponatremia; I48.20 Chronic atrial fibrillation, unspecified; I13.0 Hypertensive heart and chronic kidney disease with heart failure and stage 1 through stage 4 chronic kidney disease, or unspecified chronic kidney disease; I50.42 Chronic combined systolic (congestive) and diastolic (congestive) heart failure; E87.20 Acidosis, unspecified; I42.9 Cardiomyopathy, unspecified; R07.9 Chest pain, unspecified; N18.4 Chronic kidney disease, stage 4 (severe); E11.22 Type 2 diabetes mellitus with diabetic chronic kidney disease; E78.5 Hyperlipidemia, unspecified; E66.9 Obesity, unspecified; E83.42 Hypomagnesemia; E86.9 Volume depletion, unspecified; F32.A Depression, unspecified; Z79.01 Long term (current) use of anticoagulants; Z90.49 Acquired absence of other specified parts of digestive tract; R53.1 Weakness; G89.4 Chronic pain syndrome; E11.40 Type 2 diabetes mellitus with diabetic neuropathy, unspecified; M89.8X9 Other specified disorders of bone, unspecified site; Z93.3 Colostomy status; D63.8 Anemia in other chronic diseases classified elsewhere; Z68.36 Body mass index [BMI] 36.0-36.9, adult
CPT/HCPCS: 36415; 71045-TC; 80048-TC; 80053-TC; 81001; 82570-TC; 82962-TC; 83735-TC; 84100-TC; 84300-TC; 84484-TC; 85025-TC; 97112-TC; 97116-TC; 97530-TC; A4223; A6403; G0378; J1170; J1644; J2270; J3475; J3490; J7030

== ENCOUNTER 2024-07-03 18:28 | Inpatient (IN) | payer MEDICARE, MEDICAID ==
[~2024-07-03] VITALS: Ht 182.9 cm; Wt 108.9 kg
--- NOTE | 2024-07-03 19:15 | NUR ---
bibra 89 frm home generalized weakness and chest pain.
--- NOTE | 2024-07-03 19:36 | NUR ---
IV CATHERINE #22G S/L BLOOD COLLECTED AND SENT TO LAB
[2024-07-03 19:45] LABS: BASOPHILS # (AUTO) 0.1 K/uL (0.0-0.2); BASOPHILS % (AUTO) 0.6 % (0.0-2.0); EOSINOPHILS % (AUTO) 0.4 % (0.0-6.0); HEMATOCRIT 36 % (39-51); HEMOGLOBIN 11.6 g/dL (13.5-17.5); LYMPHOCYTES # (AUTO) 0.7 K/uL (0.8-4.8); LYMPHOCYTES % (AUTO) 6.4 % (20.0-44.0); MEAN CORPUSCULAR HEMOGLOBIN 30 PG (26.0-33.0); MEAN CORPUSCULAR HGB CONC 32 g/dl (31.0-36.0); MEAN CORPUSCULAR VOLUME 93 fL (80-96); MONOCYTES # (AUTO) 0.8 K/uL (0.1-1.30); MONOCYTES % (AUTO) 7.6 % (2.0-12.0); NEUTROPHILS # (AUTO) 8.8 K/uL (1.8-8.9); PLATELET COUNT (AUTO) 289 K/uL (150-450); RED BLOOD CELL COUNT(AUTO) 3.89 MIL/uL (4.5-6.0); WHITE BLOOD COUNT (AUTO) 10.4 K/uL (4.3-11.0)
[2024-07-03 19:57] LABS: CALCIUM, SERUM 9.8 mg/dL (8.5-10.1); CARBON DIOXIDE 21 mmol/L (21-32); CHLORIDE 98 mmol/L (98-107); CREATININE 4.5 mg/dL (0.6-1.3); GLUCOSE 119 mg/dL (74-106); POTASSIUM 3.2 mmol/L (3.5-5.1); SODIUM SERUM 136 mmol/L (136-145); UREA NITROGEN, BLOOD 68 mg/dL (7-18)
[2024-07-03 20:11] LABS: ALANINE AMINOTRANSFERASE 45 U/L (12-78); ALBUMIN 3.5 g/dL (3.4-5.0); ALKALINE PHOSPHATASE 106 U/L (46-116); ASPARTATE AMINOTRANSFERASE 42 U/L (15-37); BILIRUBIN,DIRECT 0.1 mg/dL (0.0-0.2); BILIRUBIN,TOTAL 0.4 mg/dL (0.2-1.0); NT-PRO BNP 1574 pg/mL (0-125)
[2024-07-03] MEDS ORDERED: ONDANSETRON HCL/PF 4 MG/2 ML VIAL ONE (20:27)
[2024-07-03] MEDS ORDERED: MORPHINE SULFATE INJ 4 MG/ML DISP.SYRIN ONE (20:28)
[2024-07-03] MEDS: ONDANSETRON HCL/PF 4 MG/2 ML VIAL IVP ONE (20:31)
[2024-07-03] MEDS: MORPHINE SULFATE INJ 2 MG/ML DISP.SYRIN IV ONE (20:33)
[2024-07-03] MEDS ORDERED: ALBUTEROL SULFATE 8 GM HFA.AER.AD IH PRN (23:30)
[2024-07-03] MEDS ORDERED: ACETAMINOPHEN 325 MG TABLET PO PRN (23:30)
[2024-07-03] MEDS ORDERED: MAGNESIUM HYDROXIDE 30 ML UDC PO PRN (23:30)
[2024-07-03] MEDS ORDERED: MAG HYDROX/AL HYDROX/SIMETH 30 ML UDC PO PRN (23:30)
[2024-07-03] MEDS ORDERED: Z GUARD REMEDY 4 OZ OINT TP PRN (23:30)
[2024-07-03] MEDS ORDERED: ONDANSETRON HCL/PF 4 MG/2 ML VIAL IVP PRN (23:30)
[2024-07-03] MEDS ORDERED: NITROGLYCERIN 0.4 MG/TAB BOTTLE SL PRN (23:30)
[2024-07-03] MEDS ORDERED: TEMAZEPAM 15 MG CAPSULE PO PRN (23:30)
[2024-07-04] VITALS (11 sets, daily range): BP systolic 90–146; BP diastolic 60–90; TEMP 97.5–98.1; O2SAT 96–100
--- NOTE | 2024-07-04 00:15 | NUR ---
report given to KIMBERLY YBARRA
--- NOTE | 2024-07-04 00:20 | NUR ---
TRANSFERRED PATIENT TO ROOM 328
[2024-07-04] MEDS: ASPIRIN 81 MG TAB.CHEW PO ONE (00:49)
[2024-07-04] MEDS: POTASSIUM CHLORIDE 20 MEQ TAB.PRT.SR PO ONE (00:49)
[2024-07-04] MEDS: HEPARIN SODIUM, PORCINE 5000 UNITS/1 ML VIAL SQ SCH (00:50)
[2024-07-04] MEDS: TEMAZEPAM 7.5 MG CAPSULE PO PRN (01:07)
--- NOTE | 2024-07-04 01:32 | NUR ---
CARBON FURNACE OPERATORASSISTANT PROFESSOR OF SOCIOLOGY NOTE RECEIVED PATIENT FROM ER VIA MARIA FERNANDA @ 0026. REPORT GIVEN BY TATE GERARDO. PATIENT IS A/OX4, ABLE TO MAKE NEEDS KNOWN. ON ROOM AIR, BREATHING EVENLY AND UNLABORED. NO S/SX OF DISTRESS NOTED. NO C/O PAIN OR DISCOMFORT AT THIS TIME. IV ACCESS ON CATHERINE G# 22, INTACT, PATENT, SL. NOTED WITH COLOSTOMY WITH BROWN COLORED LIQUID STOOL. VS TAKEN FOLLOWS: BP 146/90 , HR 52 , RR 19 , TEMP 97.5 , SPO2 98% . ON TELE MONITORING CURRENTLY AFIB HR 85 BPM. PT ASKING FOR SLEEPING PILL. GIVEN PRN RESTORIL 7.5 MG 1 CAP PO @ 0107. SAFETY PRECAUTIONS IN PLACE: BED IN LOW AND LOCKED POSITION, SIDE RAILS IP X 2, CALL LIGHT WITHIN REACH. WILL CONTINUE TO MONITOR.
--- NOTE | 2024-07-04 06:38 | NUR ---
DEEP WELL CONTRACTOR CLOSING NOTE PATIENT AWAKE IN BED. A/OX4, ABLE TO MAKE NEEDS KNOWN. ON ROOM AIR, BREATHING EVENLY AND UNLABORED. NO S/SX OF DISTRESS NOTED. NO C/O PAIN OR DISCOMFORT AT THIS TIME. IV ACCESS ON CATHERINE G# 22, INTACT, PATENT, SL. NOTED WITH COLOSTOMY WITH BROWN COLORED LIQUID STOOL OUTPUT. ON TELE MONITORING CURRENTLY AFIB HR 61 BPM. ALL NEEDS ATTENDED TO. DUE MEDS GIVEN. SAFETY PRECAUTIONS MAINTAINED: BED IN LOW AND LOCKED POSITION, SIDE RAILS IP X 2, CALL LIGHT WITHIN REACH. WILL ENDORSE TO AM SHIFT NURSE.
[2024-07-04] MEDS ORDERED: ALBUTEROL FS 2.5 MG/3 ML VIAL.NEB NEB PRN (07:00)
--- NOTE | 2024-07-04 07:53 | NUR ---
CAMERA MACHINIST OPENING NOTE- 328/1 RECEIVED PATIENT AWAKE IN BED. APPEARS COMFORTABLE. A/OX4, ON ROOM AIR, BREATHING EVENLY AND UNLABORED. NO S/SX OF DISTRESS NOTED. DENIED ANY PAIN OR DISCOMFORT AT THIS TIME. PATIENT HAS AN IV ACCESS ON CATHERINE G# 22, INTACT, PATENT, SL. NO S/SX OF INFILTRATION NOTED. NO BLEEDING NOTED. NOTED WITH COLOSTOMY WITH BROWN COLORED LIQUID STOOL OUTPUT. PATIENT USES URINAL. ON TELE MONITORING CURRENTLY AFIB HR 61 BPM. SKIN ASSESSMENT DONE, NOTED BRUISE ON LEFT UPPER ARM. ABLE TO MAKE NEEDS KNOWN. PATIENT EXPRESSES NO NEEDS OF THIS MOMENT. SAFETY PRECAUTIONS MAINTAINED: BED IN LOW AND LOCKED POSITION, SIDE RAILS IP X 2, CALL LIGHT WITHIN REACH. PLAN OF CARE ONGOING.
[2024-07-04] MEDS: PANTOPRAZOLE 40 MG VIAL IV SCH (08:22)
[2024-07-04] MEDS: PREGABALIN 25 MG CAPSULE PO SCH (08:23)
[2024-07-04] MEDS: SERTRALINE HCL 50 MG TABLET PO SCH (08:23)
[2024-07-04] MEDS: METOPROLOL TARTRATE 25 MG TABLET PO SCH (08:23)
[2024-07-04] MEDS ORDERED: APIXABAN 5 MG TABLET PO SCH (09:00)
[2024-07-04] MEDS ORDERED: PREGABALIN 75 MG PO SCH (09:00)
[2024-07-04] MEDS: IV NS 0.9% 1,000 ML IV ONE (13:33)
--- NOTE | 2024-07-04 19:03 | NUR ---
IT SYSTEMS ENGINEER CLOSING NOTE- 328/1 PATIENT AWAKE IN BED. APPEARS COMFORTABLE. A/OX4, ON ROOM AIR, BREATHING EVENLY AND UNLABORED. NO S/SX OF DISTRESS NOTED. DENIED ANY PAIN OR DISCOMFORT AT THIS TIME. PATIENT HAS AN IV ACCESS ON CATHERINE G# 22, INTACT, PATENT, SL. NO S/SX OF INFILTRATION NOTED. NO BLEEDING NOTED. NOTED WITH COLOSTOMY WITH BROWN COLORED LIQUID STOOL OUTPUT. PATIENT USES URINAL TO DRAIN HIS OWN COLOSTOMY BAG. ON TELE MONITORING CURRENTLY CONTROLLED AFIB HR 58 BPM. WITH NOTED BRUISE ON LEFT UPPER ARM. ALL DUE MEDS WERE GIVEN. KEPT PAIENT CLEAN, DRY AND COMFORTABLE. ABLE TO MAKE NEEDS KNOWN. PATIENT EXPRESSES NO NEEDS OF THIS MOMENT. SAFETY PRECAUTIONS MAINTAINED: BED IN LOW AND LOCKED POSITION, SIDE RAILS IP X 2, CALL LIGHT WITHIN REACH. ENDORSED TO OPTICS ENGINEER NURSE FOR RAJINDER.
--- NOTE | 2024-07-04 19:20 | NUR ---
APPLICATIONS ENGINEER OPENING NOTES RECEIVED PATIENT AWAKE IN BED, WATCHING TV. A/O X 4. ON ROOM AIR, BREATHING EVEN AND UNLABORED, SATURATING @ 98%. ON YARN TEXTURING MACHINE OPERATOR WITH CURRENT READING OF AFIB SUSTAINED @ 56 BPM. IV ACCESS RIGHT UPPER ARM #22G WITH IV FLUID RUNNING NS @ 75 ML/HR, INFUSING WELL. SAFETY MEASURES IN PLACE WITH BED IN LOWEST LOCKED POSITION, SIDE RAILS UP X 2, CALL LIGHT AND TRAY WITHIN EASY REACH. PLAN OF CARE ONGOING.
[2024-07-04] MEDS: ATORVASTATIN 40 MG TABLET PO SCH (21:18)
--- NOTE | 2024-07-04 21:25 | NUR ---
RN NOTES- PATIENT REFUSED ZOLOFT FOR NOW AND REQUESTED FOR RESTORIL INSTEAD. HE WANTS TO TAKE HIS ZOLOFT AT MIDNIGHT. DENIES ANY ACUTE DISTRESS AT THIS TIME. PLAN OF CARE ONGOING. Addendum: 07/04/24 at 2303 by DELMI MILES RN RESTORIL NOT SAVED WHEN SCANNED EARLIER.
[2024-07-05] VITALS: BP 91/56; TEMP 98.2; O2SAT 96
[2024-07-05 04:00] VITALS: BP 114/77; TEMP 97.8; O2SAT 97
--- NOTE | 2024-07-05 06:00 | NUR ---
RN NOTES- ORDERED FOR MIDLINE INSERTION
--- NOTE | 2024-07-05 06:50 | NUR ---
CHARGING BOARD OPERATOR CLOSING NOTES PATIENT SLEEPING IN BED, EASILY AWAKEN BY VERBAL STIMULI. A/O X 4. STABLE ON ROOM SIR. ON POCKET GRINDER OPERATOR WITH CURRENT READING OF AFIB SUSTAINED @ 55 BPM.NO IV ACCESS AT THIS TIME, ORDERED MIDLINE INSERTION. ALL NEEDS ATTENDED. SAFETY MEASURES MAINTAINED DURING SHIFT. WILL ENDORSE TO THE NEXT NURSE ON DUTY FOR CONTINUITY OF CARE.
--- NOTE | 2024-07-05 07:26 | NUR ---
QUALITY ASSURANCE CONSULTANT OPENING NOTE- 328/1 RECEIVED PATIENT AWAKE IN BED. APPEARS COMFORTABLE. A/OX4, ON ROOM AIR, BREATHING EVENLY AND UNLABORED. NO S/SX OF DISTRESS NOTED. DENIED ANY PAIN OR DISCOMFORT AT THIS TIME. PATIENT HAS NO IV ACCESS. FOR MIDLINE INSERTION TODAY. NOTED WITH COLOSTOMY WITH BROWN COLORED LIQUID STOOL OUTPUT. PATIENT USES URINAL. ON TELE MONITORING CURRENTLY AFIB HR 55 BPM. SKIN ASSESSMENT DONE, NOTED BRUISE ON LEFT UPPER ARM. ABLE TO MAKE NEEDS KNOWN. PATIENT EXPRESSES NO NEEDS OF THIS MOMENT. SAFETY PRECAUTIONS MAINTAINED: BED IN LOW AND LOCKED POSITION, SIDE RAILS IP X 2, CALL LIGHT WITHIN REACH. PLAN OF CARE ONGOING.
[2024-07-05 08:00] VITALS: BP 94/59; TEMP 98.2; O2SAT 94
[2024-07-05] MEDS ORDERED: PREG75CA PO (08:27)
[2024-07-05] MEDS ORDERED: HYDR-3972 PO (08:27)
[2024-07-05 08:30] VITALS: BP 94/59
--- NOTE | 2024-07-05 08:38 | NUR ---
RN NOTES IV PROTONIX NOT ADMINISTERED. PATIENT HAS NO IV ACCESS. AWAITING MIDLINE INSERTION. METROPOLOL NOT ADMINISTERED. PULSE RATE 56, BP 94/59. PLAN OF CARE ONGOING
--- NOTE | 2024-07-05 12:00 | NUR ---
RN NOTES PATIENT REFUSED BLOOD WITHDRAWAL. EXPLAINED RISKS AND BENEFITS, BUT STILL THE PATIENT REFUSED. CHARGE NURSE AWARE.
--- NOTE | 2024-07-05 13:27 | NUR ---
MS MANAGER COMMERCIAL SALES NOTES PATIENT DISCHARGED TO HOME VIA GURNEY ACCOMPANIED BY MAGNETIC OBSERVER. A/O X 4. TOLERATING ROOM AIR WELL, BREATHING EVENLY AND UNLABORED, NO ACUTE RESPIRATORY DISTRESS NOTED. DENIED ANY PAIN OR DISCOMFORT OF THIS TIME. ALL VITAL SIGNS, WNL. ALL BELONGINGS ARE ACCOUNTED FOR BY JASE YBARRA, SIGNED AND FILED ON PATIENT'S CHART. HEALTH TEACHINGS AND DISCHARGE INSTRUCTIONS WERE GIVEN TO THE PATIENT. HE VERBALIZED UNDERSTANDING. REFUSED HELP FOR CHANGING CLOTHES. ALL DUE MEDS WERE GIVEN. NAME ARMBAND AND IV ACCESS REMOVED. TELEBOX MONITOR RETURNED TO JARED. COLOSTOMY BAG INTACT. PATIENT LEFT UNIT @ 1327. CHARGE NURSE AND DOCTOR AWARE.
[2024-07-06] MEDS ORDERED: PANTOPRAZOLE 40 MG TABLET.DR PO SCH (09:00)
== END 2024-07-05 13:30 | disposition home health service (06) | DRG 203 ==
LOC: ER 18:31 → TELE 23:57
PROVIDERS: ATTEND Nurse Practitioner Acute Care
DX: M94.0 Chondrocostal junction syndrome [Tietze] (principal); I50.43 Acute on chronic combined systolic (congestive) and diastolic (congestive) heart failure; N17.9 Acute kidney failure, unspecified; E87.20 Acidosis, unspecified; D63.8 Anemia in other chronic diseases classified elsewhere; E86.1 Hypovolemia; I48.20 Chronic atrial fibrillation, unspecified; E11.22 Type 2 diabetes mellitus with diabetic chronic kidney disease; I13.0 Hypertensive heart and chronic kidney disease with heart failure and stage 1 through stage 4 chronic kidney disease, or unspecified chronic kidney disease; E11.40 Type 2 diabetes mellitus with diabetic neuropathy, unspecified; E66.9 Obesity, unspecified; E87.6 Hypokalemia; F32.A Depression, unspecified; E78.5 Hyperlipidemia, unspecified; Z93.3 Colostomy status; Z90.49 Acquired absence of other specified parts of digestive tract; Z79.01 Long term (current) use of anticoagulants; Z79.51 Long term (current) use of inhaled steroids; Z79.899 Other long term (current) drug therapy; N18.4 Chronic kidney disease, stage 4 (severe); Z91.81 History of falling; G89.4 Chronic pain syndrome; E83.42 Hypomagnesemia; F41.9 Anxiety disorder, unspecified; M89.8X9 Other specified disorders of bone, unspecified site; Z68.32 Body mass index [BMI] 32.0-32.9, adult
CPT/HCPCS: 36415; 71045-TC; 80048-TC; 80076-TC; 83880; 84484-TC; 85025-TC; 97110-TC; 97116-TC; 97530-TC; A4223; G0378; J1644; J2270; J2405; J2470; J7042

== ENCOUNTER 2024-07-30 16:33 | Emergency (ER) | payer MEDICARE, OTHER ==
[~2024-07-30] VITALS: Ht 188 cm; Wt 113.4 kg
[~2024-07-30 16:33] MED LIST changes: +HYDR-3972 PO; -HYDR-4303 PO; +PREG75CA PO
[2024-07-30 17:10] VITALS: BP 89/52; TEMP 98.2; O2SAT 99
== END 2024-07-30 19:24 | disposition left against medical advice (07) ==
LOC: ER 16:39
DX: R42 Dizziness and giddiness (principal); R07.9 Chest pain, unspecified; Z53.21 Procedure and treatment not carried out due to patient leaving prior to being seen by health care provider

== ENCOUNTER 2024-08-09 15:38 | Emergency (ER) | payer MEDICARE, OTHER ==
[~2024-08-09] VITALS: Ht 188 cm; Wt 108.9 kg
[2024-08-09 15:58] VITALS: TEMP 97.9
[2024-08-09] MEDS: IV NS 0.9% 1,000 ML BAG IV ONE (17:35)
[2024-08-09] MEDS: FAMOTIDINE/PF INJ 20 MG/2 ML VIAL IV ONE (17:40)
[2024-08-09] MEDS: PANTOPRAZOLE 40 MG VIAL IV ONE (17:42)
[2024-08-09] MEDS: METOCLOPRAMIDE HCL 10 MG/2 ML VIAL IV ONE (17:50)
[2024-08-09] MEDS ORDERED: MORPHINE SULFATE INJ 2 MG/ML DISP.SYRIN ONE (18:16)
[2024-08-09 18:20] LABS: ALBUMIN 2.7 g/dL (3.4-5.0); BILIRUBIN,DIRECT 0.1 mg/dL (0.0-0.2); BILIRUBIN,TOTAL 0.3 mg/dL (0.2-1.0); TOTAL PROTEIN, SERUM 8.3 g/dL (6.4-8.2)
[2024-08-09] MEDS: MORPHINE SULFATE INJ 2 MG/ML DISP.SYRIN IV ONE (18:21)
[2024-08-09] MEDS: NYSTATIN TOP POWDER 15 GM BOTTLE TP SCH (18:35)
[2024-08-09 18:59] LABS: BASOPHILS % (AUTO) 0.3 % (0.0-2.0); EOSINOPHILS # (AUTO) 0.1 K/uL (0.0-0.7); EOSINOPHILS % (AUTO) 0.7 % (0.0-6.0); HEMATOCRIT 30 % (39-51); HEMOGLOBIN 9.7 g/dL (13.5-17.5); LYMPHOCYTES # (AUTO) 0.9 K/uL (0.8-4.8); MEAN CORPUSCULAR HEMOGLOBIN 30 PG (26.0-33.0); MEAN CORPUSCULAR HGB CONC 32 g/dl (31.0-36.0); MEAN CORPUSCULAR VOLUME 94 fL (80-96); MONOCYTES # (AUTO) 1.1 K/uL (0.1-1.30); MONOCYTES % (AUTO) 11.2 % (2.0-12.0); NEUTROPHILS # (AUTO) 7.9 K/uL (1.8-8.9); NEUTROPHILS % (AUTO) 78.8 % (43.0-81.0); PLATELET COUNT (AUTO) 310 K/uL (150-450); RED BLOOD CELL COUNT(AUTO) 3.21 MIL/uL (4.5-6.0); RED CELL DISTRIBUTION WIDTH 16.9 % (11.5-15.0); WHITE BLOOD COUNT (AUTO) 10.1 K/uL (4.3-11.0)
[2024-08-09 20:08] LABS: CALCIUM, SERUM 9.1 mg/dL (8.5-10.1); CREATININE 2.3 mg/dL (0.6-1.3); POTASSIUM 4.6 mmol/L (3.5-5.1)
[2024-08-09 22:37] VITALS: BP 110/75; O2SAT 97
== END 2024-08-09 22:38 | disposition home or self-care (01) ==
LOC: ER 15:45
DX: I13.0 Hypertensive heart and chronic kidney disease with heart failure and stage 1 through stage 4 chronic kidney disease, or unspecified chronic kidney disease (principal); E11.22 Type 2 diabetes mellitus with diabetic chronic kidney disease; N18.9 Chronic kidney disease, unspecified; I50.9 Heart failure, unspecified; I48.91 Unspecified atrial fibrillation; E78.5 Hyperlipidemia, unspecified; Z87.448 Personal history of other diseases of urinary system; Z87.438 Personal history of other diseases of male genital organs; Z86.59 Personal history of other mental and behavioral disorders; Z90.49 Acquired absence of other specified parts of digestive tract; Z60.2 Problems related to living alone
CPT/HCPCS: 99285; 96374; 96375; 71045; 96361; 93005 ×2; 85025; 80048; 83690; 80076; 36415; 84484; 83880; J3490; J2765; J7030; J2470; J2270

== ENCOUNTER 2024-09-04 00:27 | Emergency (ER) | payer MEDICARE, OTHER ==
[~2024-09-04] VITALS: Ht 182.9 cm; Wt 95.3 kg
[2024-09-04] MEDS ORDERED: ONDANSETRON HCL/PF 4 MG/2 ML VIAL ONE (00:38)
[2024-09-04 00:57] LABS: BASOPHILS % (AUTO) 0.5 % (0.0-2.0); EOSINOPHILS # (AUTO) 0.1 K/uL (0.0-0.7); EOSINOPHILS % (AUTO) 1.8 % (0.0-6.0); HEMATOCRIT 31 % (39-51); HEMOGLOBIN 10.1 g/dL (13.5-17.5); LYMPHOCYTES # (AUTO) 0.9 K/uL (0.8-4.8); LYMPHOCYTES % (AUTO) 12.5 % (20.0-44.0); MEAN CORPUSCULAR HEMOGLOBIN 31 PG (26.0-33.0); MEAN CORPUSCULAR HGB CONC 33 g/dl (31.0-36.0); MEAN CORPUSCULAR VOLUME 94 fL (80-96); MONOCYTES # (AUTO) 0.5 K/uL (0.1-1.30); MONOCYTES % (AUTO) 7.5 % (2.0-12.0); NEUTROPHILS # (AUTO) 5.6 K/uL (1.8-8.9); NEUTROPHILS % (AUTO) 77.7 % (43.0-81.0); PLATELET COUNT (AUTO) 353 K/uL (150-450); RED BLOOD CELL COUNT(AUTO) 3.25 MIL/uL (4.5-6.0); RED CELL DISTRIBUTION WIDTH 17.1 % (11.5-15.0); WHITE BLOOD COUNT (AUTO) 7.2 K/uL (4.3-11.0)
[2024-09-04] MEDS: ONDANSETRON HCL/PF 4 MG/2 ML VIAL IVP ONE (00:58)
[2024-09-04] MEDS: IV NS 0.9% 1,000 ML BAG IV ONE (00:58)
[2024-09-04 01:07] LABS: CALCIUM, SERUM 9.5 mg/dL (8.5-10.1); CREATININE 2.2 mg/dL (0.6-1.3); POTASSIUM 3.6 mmol/L (3.5-5.1)
[2024-09-04 01:11] LABS: ALBUMIN 3.1 g/dL (3.4-5.0); BILIRUBIN,DIRECT 0.1 mg/dL (0.0-0.2); BILIRUBIN,TOTAL 0.4 mg/dL (0.2-1.0); TOTAL PROTEIN, SERUM 8.5 g/dL (6.4-8.2)
[2024-09-04] MEDS ORDERED: ONDA4TAB5 PO (01:20)
[2024-09-04 02:14] VITALS: BP 144/66; TEMP 98.2; O2SAT 98
== END 2024-09-04 02:14 | disposition home or self-care (01) ==
LOC: ER 00:41
DX: R11.2 Nausea with vomiting, unspecified (principal); R10.9 Unspecified abdominal pain; E11.9 Type 2 diabetes mellitus without complications; E78.5 Hyperlipidemia, unspecified; I10 Essential (primary) hypertension; I48.91 Unspecified atrial fibrillation; Z79.01 Long term (current) use of anticoagulants; Z90.49 Acquired absence of other specified parts of digestive tract; Z87.39 Personal history of other diseases of the musculoskeletal system and connective tissue; Z60.2 Problems related to living alone
CPT/HCPCS: 99283; 96374; 96361; 85025; 80048; 83690; 80076; 36415; J2405; J7030